=== PATIENT | female | born 1970 | race Two or more races ===

== ENCOUNTER 2017-07-09 12:47 | Inpatient (IN) | payer OTHER ==
[2017-07-09 13:05] VITALS: BMI 18.3
[2017-07-09] MEDS ORDERED: SODIUM CHLORIDE 0.9% 1000 ML INFUS.BAG IV PRN (14:37)
[2017-07-09] MEDS ORDERED: ACETAMINOPHEN 1000 MG/100 ML VIAL (NON FORMULARY) IVPB ONE (14:50)
--- NOTE | 2017-07-09 14:50 | PDOC ---
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 She is prone to aspiration PNA and was sent to the ED by her HIV doctor today with symptoms she states are typical of her prior aspiration PNA. The patient notes fever, chills, nausea, vomiting, cough with thick yellow sputum, SOB, congestion, postnasal drip, and head-to-toe body aches for the past four days. She additionally expresses concern that she has lost about 50 lbs in the past year. She denies chest pain, leg swelling, bloody sputum, or other symptoms. The patient's clinic provider called ahead and expressed concern that her pulse oxygenation was 91% on room air in clinic this morning without improvement after breathing treatment. Past History - Past Medical History Allergies/Adverse Reactions: Allergies Allergy/AdvReac Type Severity Reaction Status Date / Time sulfamethoxazole Allergy Unknown Rash Verified 07/09/17 12:56 [From Bactrim] trimethoprim [From Bactrim] Allergy Unknown Rash Verified 07/09/17 12:56 abacavir sulfate Allergy Rash Verified 07/09/17 12:56 [From Ziagen] atazanavir sulfate Allergy Rash Verified 07/09/17 12:56 [From Reyataz] azithromycin Allergy Rash Verified 07/09/17 12:56 dapsone Allergy Rash Verified 07/09/17 12:56 Home Medications: Ambulatory Orders Guaifenesin [Mucinex] 600 mg PO BID PRN #60 tablet.er 07/09/16 Acetylcysteine [Cetylev] 500 mg GT DAILY #10 tablet.eff 12/18/16 Albuterol 0.083% Nebulizer Keyonna [Ventolin 0.083% Nebulizer Soln -] 1 neb NEB Q4H PRN #1 box MDD 6 12/18/16 Albuterol Sulfate Inhaler - [Ventolin HFA Inhaler -] 1 inh IH Q4H #1 inhaler Budesonide/Formeterol Fumarate [SYMBICORT 160/4.5mcg -] 2 inh IH BID #1 inhaler 12/18/16 Diphenhydramine [Benadryl 12.5 MG/5 ML Oral Solution -] 10 ml GT BID PRN #1 bottle MDD 50 mg 12/18/16 Gabapentin Liquid [Neurontin Oral Liquid -] 250 mg PO BID #1 bottle 12/18/16 Sodium Chloride [Saline [place]] 89 ml NS Q6H #1 bottle 12/18/16 Cyclobenzaprine HCl [Flexeril -] 10 mg PO HS #30 tablet 05/21/17 Clonazepam [Klonopin] 1 mg PO TID PRN #90 tablet MDD 3 06/18/17 Emtricitabine/Tenofovir [Truvada -] 1 tab PEG DAILY #30 tablet 06/18/17 Etravirine [Intelence -] 100 mg PEG BID #60 tablet 06/18/17 Fluticasone Prop 0.05% Nasal [Flonase -] 1 - 2 spray NS DAILY #1 spray.pump Mirtazapine [Remeron -] 15 mg PO DAILY #30 tablet 06/18/17 Raltegravir [Isentress] 400 mg PEG BID #60 tab 06/18/17 Sertraline HCl [Zoloft] 50 mg PO DAILY #30 tablet 06/18/17 Zolpidem Tartrate [Ambien] 5 mg PO HS #30 tablet MDD 1 06/18/17 Anemia: No Asthma: Yes (also hx aspiration pna) Cancer: Yes (throat) Cardiac Disorders: No CVA: No COPD: No CHF: No Dementia: No Diabetes: No GI Disorders: Yes (failure to thrive, peg tube ) Disorders: No HTN: No Hypercholesterolemia: No Liver Disease: No Seizures: No Thyroid Disease: No - Surgical History Abdominal Surgery: No Appendectomy: No Cardiac Surgery: No Cholecystectomy: No GI Surgery: Yes (g tube) Lung Surgery: No Neurologic Surgery: No Orthopedic Surgery: Yes (knee arthroscopic surgery) - Immunization History Immunization Up to Date: Yes - Suicide/Smoking/Psychosocial Hx Smoking Status: Yes Smoking History: Current some day smoker Have you smoked in the past 12 months: Yes Number of Cigarettes Smoked Daily: 2 If you are a former smoker, when did you quit?: 2016 Cigars Per Day: 0 Information on smoking cessation initiated: No 'Breaking Loose' booklet given: 05/05/16 Hx Alcohol Use: No Drug/Substance Use Hx: No Substance Use Type: Marijuana Hx Substance Use Treatment: No Respiratory Specific PMHX - Complaint Specific PMHX TB (Tuberculosis): No Review of Systems - Review of Systems Able to Perform ROS?: Yes Constitutional: Yes: Diaphoresis, Malaise, Night Sweats. No: Fever HEENTM: Yes: Nose Congestion, Other (t-nasal drip). No: Throat Pain Respiratory: Yes: Wheezing, Productive cough. No: Cough, Shortness of Breath, Hemoptysis Cardiac (ROS): No: Chest Pain, Edema, Palpitations ABD/GI: Yes: Nausea, Vomiting. No: Constipated, Diarrhea, Abdominal cramping, Tarry Stools : No: Burning, Dysuria Musculoskeletal: No: Back Pain, Neck Pain Integumentary: No: Bruising, Rash Neurological: No: Headache, Numbness, Tingling, Weakness, Dizziness Endocrine: Yes: Change in Weight (lost 50 lbs in 1 year). No: Unexplained Weight Gain *Physical Exam - Vital Signs Last Vital Signs Temp Pulse Resp BP Pulse Ox 98.5 F 103 H 20 97/70 92 L 07/09/17 12:57 07/09/17 12:57 07/09/17 12:57 07/09/17 12:57 07/09/17 12:57 - Physical Exam General Appearance: Yes: Nourished, Appropriately Dressed, Thin, Other ( chronically ill-appearing thin adult female, conversive, intermittently tearful , answering appropriately). No: Apparent Distress HEENT: positive: EOMI, BOWEN, Muffled/Hoarse voice (states unchanged chronic), Hearing Grossly Normal, Other (mild bilateral scleral injection, tracheostomy in place and patient is self-suctioning white/yellow sputum). negative: Nasal Congestion Neck: positive: Trachea midline, Supple. negative: Tender, Rigid Respiratory/Chest: positive: Other (patient taking breaths mid-sentence, auscultation is difficult 2/2 frequent cough and sonorous expiratory phase d/t trach). negative: Respiratory Distress Cardiovascular: positive: Regular Rhythm, Tachycardia (mild). negative: Murmur Gastrointestinal/Abdominal: positive: Normal Bowel Sounds, Flat, Soft. negative : Tender, Organomegaly, Pulsatile Mass, Guarding Musculoskeletal: positive: Normal Inspection. negative: Decreased Range of Motion, Vertebral Tenderness Extremity: positive: Normal Capillary Refill, Normal Inspection, Normal Range of Motion. negative: Tender, Cyanosis Integumentary: positive: Normal Color, Dry, Warm. negative: Erythema, Rash, Bruising Neurologic: positive: admission nurse coordinator II-XII NML intact (grossly), Fully Oriented, Alert, Normal Mood/Affect, Normal Response, Motor Strength 12/05 ED Treatment Course - LABORATORY CBC & Chemistry Diagram: 07/09/17 15:20 07/09/17 15:15 - RADIOLOGY Radiology Studies Ordered: Category Date Time Status CHEST PA & LAT [RAD] Stat Radiology 07/09/17 14:40 Ordered Medical Decision Making - Medical Decision Making 47 YOF with HIV on HAART with last CD4 around 600 and undetectable viral load p/ w productive cough, SOB, n/v, f/c. On exam her initial vitals show soft pressures and mild tachycardia, afebrile orally though. She is tachypneic during my exam, has frequent cough, frequently self- suctioning. DDX IBNLT aspiration PNA, bronchitis, influenza, pneumothorax, malignancy, etc. Ordered is sepsis order set with flu swab, IV Tylenol, DuoNeb. 07/09/17 16:49 Labs, flu swab, and CXR unremarkable. Chest CTA is ordered to r/o PE as the patient has been tachycardic, hypoxic, h/ o CA. 07/09/17 17:58 Patient still awaiting chest CTA. 07/09/17 20:14 Patient's urine test is negative. Chest CTA is done and now awaiting official results. 07/09/17 21:04 Chest CTA shows PNA, no PE. Patient to be admitted; [facility] is microblogged. Ordered is Levaquin and Zosyn to cover CAP, normal CD4 count, h/o pseudomonas in sputum. 07/09/17 21:[address] Soria who admits to inpatient med/surg based on CURB-65. *DC/Admit/Observation/Transfer Diagnosis at time of Disposition: HIV (human immunodeficiency virus infection), Tracheostomy dependence Pneumonia Qualifiers: Pneumonia type: due to unspecified organism Laterality: unspecified laterality Lung location: unspecified part of lung Qualified Code(s): J18.9 - Pneumonia, unspecified organism - Discharge Dispostion Condition at time of disposition: Guarded Admit: Yes - Referrals - Patient Instructions - Post Discharge Activity
[2017-07-09] MEDS ORDERED: ALBUTEROL SO4 2.5/IPRATROPIUM 0.5 INH SOL 3 ML VIAL.NEB. NEB ONE (14:58)
[2017-07-09] MEDS ORDERED: ACETAMINOPHEN INJECTION 100 ML IVPB ONE (14:59)
--- NOTE | 2017-07-09 15:22 | PDOC ---
Attending Attestation - Resident Resident Name: Madelyn Grier - ED Attending Attestation I have performed the following: I have examined & evaluated the patient, The case was reviewed & discussed with the resident, I agree w/resident's findings & plan, Exceptions are as noted - HPI HPI: 07/09/17 15:19 47 F with h/o HIV (CD4 600, VL UD in March 2017), laryngeal CA s/p partial laryngectomy 2011, s/p trach and PEG, presenting to ER with fever, chills, N+V, cough. Pt states that she feels very unwell. Reports bringing up thick yellow sputum with her cough, consistent with her previous episodes of aspiration PNA. Pt denies CP but endorses SOB due to congestion and nasal drip. Pt was seen in clinic today and found to be satting 91% on RA. She received a breathing treatment with minimal improvement in her symptoms. - Physicial Exam PE: 07/09/17 15:22 "GENERAL: Awake, alert, and fully oriented, in no acute distress HEAD: No signs of trauma EYES: PERRLA, EOMI, sclera anicteric, conjunctiva clear ENT: Trach collar in place with thick yellow secretions NECK: Nontender, no stepoffs, Normal ROM, supple, no lymphadenopathy, JVD, or masses LUNGS: diffuse expiratory rhonchi, No wheezes, and no crackles, no stridor HEART: Regular rate and rhythm, normal S1 and S2, no murmurs, rubs or gallops ABDOMEN: Soft, nontender, normoactive bowel sounds. No guarding, no rebound. No masses EXTREMITIES: Normal range of motion, no edema. No clubbing or cyanosis. No cords, erythema, or tenderness NEUROLOGICAL: Cranial nerves II through XII intact. 5/5 strength and sensation in all extremities, Normal speech, normal gait SKIN: Warm, Dry, normal turgor, no rashes or lesions noted. " - Medical Decision Making 07/09/17 15:23 47 F with trach 2/2 laryngeal CA presenting with likely PNA. Pt tachycardic and slightly hypoxic to 91 in ER. Most likely infectious process. However, pt is at risk for DVT/PE given cancer history. If CXR clear, will consider CTA to r/o PE. - Labs, cultures - CXR - Abx PRN - Admit
[2017-07-09 15:35] LABS: VENOUS PH 7.45 (7.32-7.42)
[2017-07-09 15:36] LABS: BASO % 0.2 % (0-2.0); EOS % 0.4 % (0-4.5); MCH 32.4 pg (25.7-33.7); MCHC 33.4 g/dl (32.0-36.0); MEAN PLT VOLUME 10.1 fl (7.5-11.1); NEUT % 77.2 % (42.8-82.8); PLATELET COUNT 255 K/MM3 (134-434); RDW 14.2 % (11.6-15.6); VENOUS BLOOD GAS HCO3 31.7 meq/L (19-25); WHITE BLOOD COUNT 9.8 K/mm3 (4.0-10.0)
[2017-07-09 15:52] LABS: ALBUMIN 3.2 g/dl (3.4-5.0); ALK PHOS 71 U/L (45-117); ANION GAP 8 (8-16); BILIRUBIN,TOTAL 0.7 mg/dL (0.2-1.0); CALCIUM 8.9 mg/dL (8.5-10.1); CO2 29 mmol/L (21-32); CREATININE 0.5 mg/dL (0.55-1.02); GLUCOSE,RANDOM 94 mg/dL (74-106); SGPT/ALT 27 U/L (12-78); TOT PROT 7.2 g/dl (6.4-8.2)
[2017-07-09 16:53] LABS: SGOT/AST 34 U/L (15-37)
--- NOTE | 2017-07-09 18:43 | PDOC ---
*Physical Exam - Vital Signs Last Vital Signs Temp Pulse Resp BP Pulse Ox 98.1 F 85 18 164/82 100 07/09/17 16:52 07/09/17 16:52 07/09/17 16:52 07/09/17 16:52 07/09/17 16:52 - Physical Exam Comments: 07/09/17 21:04 Gen: aaox3, sitting up, eating dinner heart: +s1s2 reg Lungs: diminished bs b/l bases, trach in place abd: soft, nt/nd ext: no c/c/e ED Treatment Course - LABORATORY CBC & Chemistry Diagram: 07/09/17 15:20 07/09/17 15:15 - ADDITIONAL ORDERS Additional order review: Laboratory Results 07/09/17 07/09/17 07/09/17 15:25 15:20 15:15 VBG pH 7.45 H POC VBG pCO2 46.6 POC VBG pO2 29.7 D Mixed VBG HCO3 31.7 H Sodium 137 Potassium 4.3 Chloride 100 Carbon Dioxide 29 Anion Gap 8 BUN 15 D Creatinine 0.5 L D Creat Clearance w eGFR > 60 Random Glucose 94 D Lactic Acid 0.8 Calcium 8.9 Total Bilirubin 0.7 AST 34 D ALT 27 Alkaline Phosphatase 71 Total Protein 7.2 Albumin 3.2 L D 07/09/17 15:17 Influenza Types A,B Antigen (NEW) - Final Nasopharyngeal Swab - Final 07/09/17 15:20 RBC 3.87 MCV 97.0 H MCHC 33.4 RDW 14.2 MPV 10.1 Neutrophils % 77.2 Lymphocytes % 15.9 D Monocytes % 6.3 Eosinophils % 0.4 Basophils % 0.2 Medical Decision Making - Medical Decision Making 07/09/17 18:42 pt signed out from the prior ed physician pending CTPE for further eval of dyspnea and hypoxia cxr did not show acute infiltrate ct will eval for poss infiltrate and cause of yellow sputum production pt currenlty in CT 07/09/17 21:[address] shows multilobar pna will start abx cultures sent will be admitted to [facility] *DC/Admit/Observation/Transfer Diagnosis at time of Disposition: HIV (human immunodeficiency virus infection), Tracheostomy dependence Pneumonia Qualifiers: Pneumonia type: due to unspecified organism Laterality: unspecified laterality Lung location: unspecified part of lung Qualified Code(s): J18.9 - Pneumonia, unspecified organism - Discharge Dispostion Condition at time of disposition: Guarded - Referrals Referrals: Ludmila Louis [Primary Care Provider] - - Patient Instructions - Post Discharge Activity
[2017-07-09] MEDS ORDERED: LEVOFLOXACIN 750 MG IVPB 750 MG/150 ML BAG IVPB ONE ×2 (20:54→21:06)
[2017-07-09] MEDS ORDERED: PIPERACILLIN/TAZOB 4.5 GM/100 ML PRE-DOCKED IVPB ONE (20:54)
[2017-07-09] MEDS ORDERED: PIPERACILLIN/TAZOB 4.5 GM 4.5 GM/100 ML BAG IVPB ONE (21:05)
--- NOTE | 2017-07-09 23:12 | HP ---
<OsmelrastanatashaIgnaciol - Last Filed: 07/09/17 23:52> CHIEF COMPLAINT: Hypoxia @ PCP office PCP: Josephine Juarez HISTORY OF PRESENT ILLNESS: 47 year old F with pmh of HIV (last CD4 of 600 and undetectable viral load back in Mar 2017), laryngeal SCC s/p partial laryngectomy in 2011, radiation and chemo in 2012, and tracheostomy placement in 2015, and PEG placement presenting with hypoxia from her PCP office. Patient states she has had fever, chills, night sweats, & cough with yellow sputum over the past 4 days. Patient states last night she had an episode of emesis after a coughing spell. She went to her PCP today for HIV f/u and was found to be hypoxic. She was sent to the ED. ER course was notable for: (1) VS- tachycardic, 95% on RA (2) CBC, CMP unremarkable (3) CXR- unremarkable (4) CTA- Mild left lower and right middle lobe infiltrates Recent Travel: denies PAST MEDICAL HISTORY: as per hpi PAST SURGICAL HISTORY: G-tube, tracheostomy, partial laryngectomy Social History: Smoking: Former Alcohol: denies Drugs: Marijuana Family History: Allergies sulfamethoxazole [From Bactrim] Allergy (Unknown, Verified 07/09/17 12:56) Rash trimethoprim [From Bactrim] Allergy (Unknown, Verified 07/09/17 12:56) Rash abacavir sulfate [From Ziagen] Allergy (Verified 07/09/17 12:56) Rash atazanavir sulfate [From Reyataz] Allergy (Verified 07/09/17 12:56) Rash azithromycin Allergy (Verified 07/09/17 12:56) Rash dapsone Allergy (Verified 07/09/17 12:56) Rash HOME MEDICATIONS: Home Medications Medication Instructions Recorded Guaifenesin [Mucinex] 600 mg PO BID PRN #60 tablet.er 07/09/16 Acetylcysteine [Cetylev] 500 mg GT DAILY #10 tablet.eff 12/18/16 Albuterol 0.083% Nebulizer Keyonna 1 neb NEB Q4H PRN #1 box MDD 6 12/18/16 [Ventolin 0.083% Nebulizer Soln -] Albuterol Sulfate Inhaler - 1 inh IH Q4H #1 inhaler 12/18/16 [Ventolin HFA Inhaler -] Budesonide/Formeterol Fumarate 2 inh IH BID #1 inhaler 12/18/16 [SYMBICORT 160/4.5mcg -] Diphenhydramine [Benadryl 12.5 10 ml GT BID PRN #1 bottle MDD 50 12/18/16 MG/5 ML Oral Solution -] mg Gabapentin Liquid [Neurontin Oral 250 mg PO BID #1 bottle 12/18/16 Liquid -] Sodium Chloride [Saline Nose Gotebo] 89 ml NS Q6H #1 bottle 12/18/16 Cyclobenzaprine HCl [Flexeril -] 10 mg PO HS #30 tablet 05/21/17 Clonazepam [Klonopin] 1 mg PO TID PRN #90 tablet MDD 3 06/18/17 Emtricitabine/Tenofovir [Truvada -] 1 tab PEG DAILY #30 tablet 06/18/17 Etravirine [Intelence -] 100 mg PEG BID #60 tablet 06/18/17 Fluticasone Prop 0.05% Nasal 1 - 2 spray NS DAILY #1 spray.pump 06/18/17 [Flonase -] Mirtazapine [Remeron -] 15 mg PO DAILY #30 tablet 06/18/17 Raltegravir [Isentress] 400 mg PEG BID #60 tab 06/18/17 Sertraline HCl [Zoloft] 50 mg PO DAILY #30 tablet 06/18/17 Zolpidem Tartrate [Ambien] 5 mg PO HS #30 tablet MDD 1 06/18/17 REVIEW OF SYSTEMS CONSTITUTIONAL: Absent: fever, chills, diaphoresis, generalized weakness, malaise, loss of appetite, weight change HEENT: Absent: rhinorrhea, nasal congestion, throat pain, throat swelling, difficulty swallowing, mouth swelling, ear pain, eye pain, visual changes CARDIOVASCULAR: Absent: chest pain, syncope, palpitations, irregular heart rate, lightheadedness , peripheral edema RESPIRATORY: Absent: cough, shortness of breath, dyspnea with exertion, orthopnea, wheezing, stridor, hemoptysis GASTROINTESTINAL: Absent: abdominal pain, abdominal distension, nausea, vomiting, diarrhea, constipation, melena, hematochezia GENITOURINARY: Absent: dysuria, frequency, urgency, hesitancy, hematuria, flank pain, genital pain MUSCULOSKELETAL: Absent: myalgia, arthralgia, joint swelling, back pain, neck pain SKIN: Absent: rash, itching, pallor HEMATOLOGIC/IMMUNOLOGIC: Absent: easy bleeding, easy bruising, lymphadenopathy, frequent infections ENDOCRINE: Absent: unexplained weight gain, unexplained weight loss, heat intolerance, cold intolerance NEUROLOGIC: Absent: headache, focal weakness or paresthesias, dizziness, unsteady gait, seizure, mental status changes, bladder or bowel incontinence PSYCHIATRIC: Absent: anxiety, depression, suicidal or homicidal ideation, hallucinations. PHYSICAL EXAMINATION Vital Signs - 24 hr 07/09/17 07/09/17 07/09/17 12:57 16:52 21:58 Temperature 98.5 F 98.1 F 98.3 F Pulse Rate 103 H Pulse Rate [ 85 100 H Apical] Respiratory 20 18 20 Rate Blood Pressure 97/70 Blood Pressure 164/82 132/74 [Right Arm] O2 Sat by Pulse 92 L 100 95 Oximetry (%) GENERAL: Awake, alert, and fully oriented, in no acute distress. +chronically thin appearing, HEAD: Normal with no signs of trauma. EYES: Pupils equal, round and reactive to light, extraocular movements intact, sclera anicteric, conjunctiva clear. No lid lag. EARS, NOSE, THROAT: Oropharynx clear without exudates. Moist mucous membranes. NECK: Normal range of motion, supple without lymphadenopathy, JVD, or masses. + Tracheostomy in place, patient self suctioning, Muffled voice, LUNGS: Breath sounds equal, clear to auscultation bilaterally. No wheezes, and no crackles. No accessory muscle use. HEART: Mild tachycardia, normal S1 and S2 without murmur, rub or gallop. ABDOMEN: Soft, nontender, not distended, normoactive bowel sounds, no guarding, no rebound, no masses. No hepatomegaly or splenomegaly. +PEG tube placemenet MUSCULOSKELETAL: Normal range of motion at all joints. No bony deformities or tenderness. No CVA tenderness. UPPER EXTREMITIES: 2+ pulses, warm, well-perfused. No cyanosis. No clubbing. No peripheral edema. LOWER EXTREMITIES: 2+ pulses, warm, well-perfused. No calf tenderness. No peripheral edema. NEUROLOGICAL: Cranial nerves II-XII intact. Normal speech. Normal gait. PSYCHIATRIC: Cooperative. Good eye contact. Appropriate mood and affect. SKIN: Warm, dry, normal turgor, no rashes or lesions noted, normal capillary refill. Laboratory Results - last 24 hr 07/09/17 07/09/17 07/09/17 15:15 15:20 15:20 WBC 9.8 D RBC 3.87 Hgb 12.5 Hct 37.5 MCV 97.0 H MCH 32.4 MCHC 33.4 RDW 14.2 Plt Count 255 MPV 10.1 Neutrophils % 77.2 Lymphocytes % 15.9 D Monocytes % 6.3 Eosinophils % 0.4 Basophils % 0.2 VBG pH 7.45 H POC VBG pCO2 46.6 POC VBG pO2 29.7 D Mixed VBG HCO3 31.7 H Sodium 137 Potassium 4.3 Chloride 100 Carbon Dioxide 29 Anion Gap 8 BUN 15 D Creatinine 0.5 L D Creat Clearance w eGFR > 60 Random Glucose 94 D Lactic Acid Calcium 8.9 Total Bilirubin 0.7 AST 34 D ALT 27 Alkaline Phosphatase 71 Total Protein 7.2 Albumin 3.2 L D Serum , Qual 07/09/17 07/09/17 15:25 17:59 WBC RBC Hgb Hct MCV MCH MCHC RDW Plt Count MPV Neutrophils % Lymphocytes % Monocytes % Eosinophils % Basophils % VBG pH POC VBG pCO2 POC VBG pO2 Mixed VBG HCO3 Sodium Potassium Chloride Carbon Dioxide Anion Gap BUN Creatinine Creat Clearance w eGFR Random Glucose Lactic Acid 0.8 Calcium Total Bilirubin AST ALT Alkaline Phosphatase Total Protein Albumin Serum , Qual Negative ASSESSMENT/PLAN: 47 year old F with pmh of HIV (last CD4 of 600 and undetectable viral load back in Mar 2017), laryngeal SCC s/p partial laryngectomy in 2011, radiation and chemo in 2012, and tracheostomy placement in 2015, and PEG placement admitted for aspiration PNA. #Aspiration PNA, subpleural -CTA reveals- Mild left lower and right middle lobe infiltrates -Start Levaquin 750 mg IVPB daily -Albuterol 1 IH q4h prn -Frequent Suctioning, patient suctions on her own and prefers not to have a nurse do it -2L O2 PRN to maintain O2 saturation -Symbicort 2 puff IH BID -F/u blood cultures #HIV -CD4 in March,. Viral Load undetectable at that time. -Continue HAART therapy #FEN/GI -No fluids at this time -WNL -Soft Diet, PEG tube. Patent will manage. #PPX -Heparin 5000 U sq q8h -No GI PPx indicated. Visit type - Emergency Visit Emergency Visit: Yes ED Registration Date: 07/09/17 Care time: The patient presented to the Emergency Department on the above date and was hospitalized for further evaluation of their emergent condition. - New Patient This patient is new to me today: Yes Date on this admission: 07/09/17 - Critical Care Critical Care patient: No <Pedro Soria - Last Filed: 07/10/17 00:29> CHIEF COMPLAINT: FEVER , CHills , SOB I saw and evaluated the patient. I reviewed the resident's note and discussed the case with the resident. I agree with the resident's findings and plan as documented. HISTORY OF PRESENT ILLNESS: 47 year old female with history of laryngeal SCC, partial laryngectomy and recent tracheostomy ( 2 years ago) presents c/o SOB and fevers . Had evidence of hypoxia on the initial exam in ED Reports 2 day history of nausea vomiting and aspiration Recent Travel: NO PAST MEDICAL HISTORY: HIV Laryngeal CA PAST SURGICAL HISTORY: partial laryngectomy tracheostomy Allergies sulfamethoxazole [From Bactrim] Allergy (Unknown, Verified 07/09/17 12:56) Rash trimethoprim [From Bactrim] Allergy (Unknown, Verified 07/09/17 12:56) Rash abacavir sulfate [From Ziagen] Allergy (Verified 07/09/17 12:56) Rash atazanavir sulfate [From Reyataz] Allergy (Verified 07/09/17 12:56) Rash azithromycin Allergy (Verified 07/09/17 12:56) Rash dapsone Allergy (Verified 07/09/17 12:56) Rash HOME MEDICATIONS: Home Medications Medication Instructions Recorded Guaifenesin [Mucinex] 600 mg PO BID PRN #60 tablet.er 07/09/16 Acetylcysteine [Cetylev] 500 mg GT DAILY #10 tablet.eff 12/18/16 Albuterol 0.083% Nebulizer Keyonna 1 neb NEB Q4H PRN #1 box MDD 6 12/18/16 [Ventolin 0.083% Nebulizer Soln -] Albuterol Sulfate Inhaler - 1 inh IH Q4H #1 inhaler 12/18/16 [Ventolin HFA Inhaler -] Budesonide/Formeterol Fumarate 2 inh IH BID #1 inhaler 12/18/16 [SYMBICORT 160/4.5mcg -] Diphenhydramine [Benadryl 12.5 10 ml GT BID PRN #1 bottle MDD 50 12/18/16 MG/5 ML Oral Solution -] mg Gabapentin Liquid [Neurontin Oral 250 mg PO BID #1 bottle 12/18/16 Liquid -] Sodium Chloride [Saline Nose Gotebo] 89 ml NS Q6H #1 bottle 12/18/16 Cyclobenzaprine HCl [Flexeril -] 10 mg PO HS #30 tablet 05/21/17 Clonazepam [Klonopin] 1 mg PO TID PRN #90 tablet MDD 3 06/18/17 Emtricitabine/Tenofovir [Truvada -] 1 tab PEG DAILY #30 tablet 06/18/17 Etravirine [Intelence -] 100 mg PEG BID #60 tablet 06/18/17 Fluticasone Prop 0.05% Nasal 1 - 2 spray NS DAILY #1 spray.pump 06/18/17 [Flonase -] Mirtazapine [Remeron -] 15 mg PO DAILY #30 tablet 06/18/17 Raltegravir [Isentress] 400 mg PEG BID #60 tab 06/18/17 Sertraline HCl [Zoloft] 50 mg PO DAILY #30 tablet 06/18/17 Zolpidem Tartrate [Ambien] 5 mg PO HS #30 tablet MDD 1 06/18/17 REVIEW OF SYSTEMS Weight loss SOB Peg tube PHYSICAL EXAMINATION Vital Signs - 24 hr 07/09/17 07/09/17 07/09/17 12:57 13:15 16:52 Temperature 98.5 F 98.1 F Pulse Rate 103 H Pulse Rate [ 85 Apical] Respiratory 20 18 Rate Blood Pressure 97/70 Blood Pressure 164/82 [Right Arm] O2 Sat by Pulse 92 L 100 100 Oximetry (%) 07/09/17 21:58 Temperature 98.3 F Pulse Rate Pulse Rate [ 100 H Apical] Respiratory 20 Rate Blood Pressure Blood Pressure 132/74 [Right Arm] O2 Sat by Pulse 95 Oximetry (%) Cachexia Tracheostomy PEG tube scattered basilar ronchi Laboratory Results - last 24 hr 07/09/17 07/09/17 07/09/17 15:15 15:20 15:20 WBC 9.8 D RBC 3.87 Hgb 12.5 Hct 37.5 MCV 97.0 H MCH 32.4 MCHC 33.4 RDW 14.2 Plt Count 255 MPV 10.1 Neutrophils % 77.2 Lymphocytes % 15.9 D Monocytes % 6.3 Eosinophils % 0.4 Basophils % 0.2 VBG pH 7.45 H POC VBG pCO2 46.6 POC VBG pO2 29.7 D Mixed VBG HCO3 31.7 H Sodium 137 Potassium 4.3 Chloride 100 Carbon Dioxide 29 Anion Gap 8 BUN 15 D Creatinine 0.5 L D Creat Clearance w eGFR > 60 Random Glucose 94 D Lactic Acid Calcium 8.9 Total Bilirubin 0.7 AST 34 D ALT 27 Alkaline Phosphatase 71 Total Protein 7.2 Albumin 3.2 L D Serum , Qual 07/09/17 07/09/17 15:25 17:59 WBC RBC Hgb Hct MCV MCH MCHC RDW Plt Count MPV Neutrophils % Lymphocytes % Monocytes % Eosinophils % Basophils % VBG pH POC VBG pCO2 POC VBG pO2 Mixed VBG HCO3 Sodium Potassium Chloride Carbon Dioxide Anion Gap BUN Creatinine Creat Clearance w eGFR Random Glucose Lactic Acid 0.8 Calcium Total Bilirubin AST ALT Alkaline Phosphatase Total Protein Albumin Serum , Qual Negative CT reviewed ASSESSMENT/PLAN: agree with residents asessment and plan add chest PT speech & swallow evaluation Nebs OK to use own suctioning device C/W home meds IV antibiotics for coverage of aspiration pneumonia
[2017-07-09] MEDS ORDERED: ALBUTEROL SO4 0.083% IH SOL 2.5 MG/3 ML VIAL.NEB. NEB PRN (23:30)
[2017-07-09] MEDS ORDERED: ALBUTEROL SO4 18 GM HFA INHALER IH PRN (23:30)
[2017-07-10] MEDS: HEPARIN NA (PORCINE) 5,000 UNITS/ML 1ML VIAL SQ SCH ×3 (05:43→21:57)
[2017-07-10 07:41] LABS: BASO % 0.2 % (0-2.0); EOS % 1.3 % (0-4.5); MCH 32.3 pg (25.7-33.7); MCHC 33.3 g/dl (32.0-36.0); MEAN CELL VOLUME 96.9 fl (80-96); MEAN PLT VOLUME 10.1 fl (7.5-11.1); NEUT % 71.5 % (42.8-82.8); PLATELET COUNT 277 K/MM3 (134-434); WHITE BLOOD COUNT 7.9 K/mm3 (4.0-10.0)
[2017-07-10 07:58] LABS: ANION GAP 9 (8-16); CALCIUM 9.5 mg/dL (8.5-10.1); CO2 32 mmol/L (21-32); CREATININE 0.6 mg/dL (0.55-1.02); GLUCOSE,RANDOM 96 mg/dL (74-106)
[2017-07-10] MEDS ORDERED: LEVOFLOXACIN 750 MG IVPB 750 MG/150 ML BAG IVPB ONE (08:30)
[2017-07-10] MEDS ORDERED: AZITHROMYCIN IVPB 500 MG in DEXTROSE 5%-WATER - 250 ML IVPB SCH (10:00)
[2017-07-10] MEDS ORDERED: LEVOFLOXACIN 750 MG IVPB 750 MG/150 ML BAG IVPB SCH (10:00)
[2017-07-10] MEDS ORDERED: METRONIDAZOLE 500 MG PREMIXED 500 MG/100 ML MG IVPB SCH (10:00)
[2017-07-10] MEDS ORDERED: CEFTRIAXONE 1 G/50 ML PREMIX 50 ML IVPB SCH (10:00)
--- NOTE | 2017-07-10 10:47 | EKG ---
Test Reason : Blood Pressure : / mmHG Vent. Rate : 090 BPM Atrial Rate : 090 BPM P-R Int : 126 ms QRS Dur : 084 ms QT Int : 370 ms P-R-T Axes : 067 -40 054 degrees QTc Int : 452 ms NORMAL SINUS RHYTHM LEFT AXIS DEVIATION ABNORMAL ECG Confirmed by MD EDGAR, DULCE ([id number]) on 07/10/2017 10:46:36 AM Referred By: Confirmed By:DULCE HERNÁNDEZ MD
[2017-07-10] MEDS: ETRAVIRINE 100 MG TABLET PO SCH ×2 (10:52→21:58)
[2017-07-10] MEDS: RALTEGRAVIR POTASSIUM 400 MG TAB PO SCH ×2 (10:52→21:59)
[2017-07-10] MEDS: EMTRICITABINE 200MG/TENOFOVIR 300MG PO SCH (10:53)
--- NOTE | 2017-07-10 10:53 | PN ---
Progress Note (short form) - Note Progress Note: ID consult dictated Pneumonia Possible sepsis secondary to pneumonia HIV/ AIDS Hx head and neck ca Oral candidiasis Multiple antibiotic allergies Await cultures Empiric levaquin/ cefepime Fluconazole via GT ART
[2017-07-10] MEDS: BUDESONIDE/FORMETEROL FUMARATE 160/4.5 mcg INHALER IH SCH ×2 (10:54→21:57)
[2017-07-10] MEDS ORDERED: CEFEPIME HCL 1 GM VIAL (RESTRICTED TO ID) IVPB SCH (11:15)
--- NOTE | 2017-07-10 12:47 | CONSULT ---
Admitting History and Physical - Primary Care Physician PCP: Brina Ron - Admission History of Present Illness: Per EMR: 47 year old F with pmh of HIV (last CD4 of 600 and undetectable viral load back in Mar 2017), laryngeal SCC s/p partial laryngectomy in 2011, radiation and chemo in 2012, and tracheostomy placement in 2015, and PEG placement presenting with hypoxia from her PCP office. Patient states she has had fever, chills, night sweats, & cough with yellow sputum over the past 4 days. Patient states last night she had an episode of emesis after a coughing spell. She went to her PCP today for HIV f/u and was found to be hypoxic. She was sent to the ED. ER course was notable for: (1) VS- tachycardic, 95% on RA (2) CBC, CMP unremarkable (3) CXR- unremarkable (4) CTA- Mild left lower and right middle lobe infiltrates Pt knopwn to me from previous eval/mbs, Last mbs 01/28/16, with trace aspiration on puree and liquid. Trial of puree/ nectar recommended, using trach for pulmonary toilet to increase ability to tolerate trace aspiration. Pt has been eating a reg diet and thin liquid at home. She has a [employer] flex speaking valve. - Past Medical History Pulmonary: Yes: Asthma, Cancer (laryngeal), Other (vocal cord mass) ...LMP: 05/14/12 ...: No Infectious Disease: Yes: HIV ENT: Yes: Other (trach in place) - Smoking History Smoking history: Current some day smoker Have you smoked in the past 12 months: Yes Aproximately how many cigarettes per day: 2 If you are a former smoker, when did you quit?: 2016 - Alcohol/Substance Use Hx Alcohol Use: No History of Substance Use: reports: None - Social History ADL: Independent History of Recent Travel: No History - Admission Reason For Visit: HUMAN IMMUNODEFICIENCY VIRUS INFECTION/ - Diagnostics X-ray: Report Reviewed CT Scan: Report Reviewed - General Mental Status: Alert and Oriented, Awake and Alert, Able to Follow Commands Attention: Intact Ability to Follow Directions: Excellent Head/Neck Control: WFL - Hearing Hearing: Functional Hearing: Normal Hearing Aide: No With Patient: No Speech Evaluation - Communication Primary Language: TURKMEN Communication: Yes: Within Normal Limits Oral Expression Ability: Yes: Mild Impairment - Speech Production Apraxia: No Able to Make Needs Known: Yes: Mildly Impaired Intelligibility: Yes: Mildly Impaired - Speech Characteristics Voice Loudness: Mildly Soft/Quiet Voice Pitch: Yes: Normal Voice Phonatory-based Quality: Yes: Dysphonia Speech Pattern: Impaired Speech Clarity: < 75% Nasal Resonance: Normal Articulation: Yes: Precise - Language/Auditory Comprehension Follows: Yes: 2 Stage Simple Commands Observation: Comprehends Conversational Speech: Yes - Language/Verbal Expression Able to Respond to Simple Queries: Yes: WNL Able to Communicate Wants and Needs: Yes: WNL Functional Communication Status: Yes: WNL - Memory/Perception skilled nursing Memory: Yes: WNL Short Term Memory: Yes: WNL - Swallow Evaluation/Bedside Assessment Current Nutritional Intake: Regular, Thin Liquids Tracheostomy Present: Yes Dentition: Yes: Adequate Facial Symmetry at Rest: Symmetrical Facial Symmetry on Retraction: Symmetrical Facial Movement: Controlled Sensation: Normal Against Resistance Opening: Normal Against Resistance Closing: Normal Pucker Lips: Normal Smile: Normal Lingual Movement: Normal, Symmetric Lingual Speed of Movement: Normal Lingual Movement Strgth Against Opposition: Normal Lingual Movement Characteristics: Normal Velopharyngeal Movement: Normal Laryngeal Elevation: Impaired Laryngeal Movement: Able to Palpate, Reduced Excursion, Labored,delay initiation , Reduced Velocity Labial Seal: WFL Oral Prep Time: WFL A-P Transit: WFL Pocketing: None Timing of Swallow: Delayed (multiple swallows. suspect stasis.) Coughing/Throat Clear: No Change in Voice: No Recommendations - Speech Evaluation, Impression/Plan Impression: Suspect aspiration. - Dysphagia Impressions/Plan Swallowing Skills: Impaired Dysphagia Impressions: Ongoing Evaluation *Silent aspiration: cannot be R/O at bedside Recommendations: Modified Barium Swallow
[2017-07-10] MEDS ORDERED: PATIENT'S OWN MEDICATION (NON-FORMULARY) (Clonazepam [Klonopin] 1 MG) PO PRN (14:49)
[2017-07-10] MEDS ORDERED: clonazePAM 0.5 MG TABLET PO PRN (14:52)
[2017-07-10] MEDS: CEFEPIME 1 GM in DEXTROSE 5%-WATER - 100 ML IVPB SCH ×2 (15:26→19:28)
[2017-07-10] MEDS: FLUCONAZOLE 40 MG/ML SUSPENSION 35 ML BOTTLE GT SCH (15:31)
--- NOTE | 2017-07-10 15:33 | PN ---
Progress Note, [employer] - Note Progress Note: Called by RN, to see pt following MBS, crying about the results of her MBS, that she feels "too skinny", that her mother calls her "Bones." Counseled on weight, called RD for possible increase in caloric density of TF. Request order for OPD swallowing tx at [facility] where she receives PT.
--- NOTE | 2017-07-10 16:48 | CONS ---
DATE OF CONSULTATION: DATE OF DICTATION: 07/10/2017 HISTORY OF PRESENT ILLNESS: The patient is a 47-year-old female with a history of acquired immunodeficiency syndrome, history of head/neck cancer status post partial laryngectomy, tracheostomy, and feeding gastrostomy, now evaluated for pneumonia. Patient states that she began to feel unwell approximately 2 days prior to admission. She developed worsening generalized weakness, body ache, subjective fever, chills, nausea, cough productive of yellowish sputum. She had presented to the clinic where she was noted to be dyspneic. She was tachycardic, tachypneic. O2 saturations were in the low 90s. She was referred to the emergency room where an influenza swab was performed, and it was negative. CAT scan of the chest shows infiltrates in the left lower lobe and the right middle lobe. Patient reports her dyspnea has improved. She has no complaints of chest pain. She does have yellowish tracheal secretions. In the past, she has had pseudomonas isolated from the sputum. She denies any chest pain or hemoptysis. PAST MEDICAL HISTORY: Positive for acquired immune deficiency syndrome. Her most recent viral markers showed a viral load of less than 20 and a T-cell count of 581, these values are from March. Past medical history also includes head and neck cancer, status post partial laryngectomy in 2011. She is status post chemotherapy and radiation. PAST SURGICAL HISTORY: Status post tracheostomy 2015, feeding gastrostomy. ALLERGIES: SULFA, ABACAVIR, REYATAZ, ZITHROMAX, . MEDICATION: Include Truvada, Intelence, Isentress. SOCIAL HISTORY: Positive for tobacco use. SYSTEMS REVIEW: General: Positive for 50-pound weight loss over the past 1 year. Cardiac: Negative chest pain or palpitations. Respiratory: As per HPI. Gastrointestinal: Positive feeding gastrostomy. Genitourinary: Negative for urinary tract infection. LABORATORY DATA: White blood cell count 7.9, hematocrit 39.4, platelet count 277, BUN 44, creatinine 0.6. CAT scan shows patchy left lower lobe and right middle lobe infiltrates. PHYSICAL EXAMINATION: General: She is cachectic. She is awake and alert. She is in no acute respiratory distress. Vital signs: Temperature 98, blood pressure 100/66, pulse 94 regular, respirations 28 per minute. HEENT: Sclerae anicteric. Tracheostomy present. No secretions noted. Cardiovascular: Heart sounds S1, S2. Respiratory: Lungs crepitations of the bases bilaterally. Abdomen: Soft. No tenderness elicited. No mass, rebound, or rigidity. Feeding gastrostomy tube is in place. Extremities: Negative for edema. IMPRESSION: 1. Multilobar pneumonia. 2. Possible sepsis secondary to pneumonia. 3. Human immunodeficiency virus/acquired immune deficiency syndrome, stable. 4. History of head and neck carcinoma. 5. Oral candidiasis. Await culture results. Empiric antibiotic coverage with Levaquin and cefepime in this patient with multiple antibiotic allergies, via feeding gastrostomy tube. Continue antiretroviral therapy. Thank you for the kind referral. GARRETT JULIAN M.D. DEE/[id number]
--- NOTE | 2017-07-10 16:58 | PN ---
Teaching Attending Note Name of Resident: Sai Fallon ATTENDING PHYSICIAN STATEMENT Time of evaluation: 11:15 AM I saw and evaluated the patient. I reviewed the resident's note and discussed the case with the resident. I agree with the resident's findings and plan as documented. SUBJECTIVE: Patient seen and examined. Breathing improved, denies increase in secretions,no current fevers, chills, or URI like illness. Last vomitus noted yesterday. Feels better. OBJECTIVE: Vital Signs Period Temp Pulse Resp BP Sys/Lisa Pulse Ox Last 24 Hr 97.7 F-98.3 F 94-107 18-20 96-132/66-76 92-96 Intake & Output 07/07/17 07/08/17 07/09/17 07/10/17 23:59 23:59 23:59 23:59 Intake Total 100 320 Balance 100 320 Weight 100 lb 100 lb General: sitting in bed in no acute distress CVS:S1S2 regular Chest: right side rales, good air entry bilaterally Abdomen: soft, NT, ND neck: tracheostomy in place Extremities: no edema Active Medications Generic Name Dose Route Start Last Admin Trade Name Freq PRN Reason Stop Dose Admin Albuterol Sulfate 1 amp 07/09/17 23:30 07/10/17 11:54 Ventolin 0.083% Nebulizer Soln - NEB 1 amp Q4H PRN Administration SHORT OF BREATH/WHEEZING Albuterol Sulfate 1 puff 07/09/17 23:30 Ventolin Hfa Inhaler - IH Q4H PRN SHORT OF BREATH/WHEEZING Budesonide/Formoterol Fumarate 2 puff 07/10/17 10:00 07/10/17 10:54 Symbicort 160/4.5mcg - IH 2 puff BID RAZ Administration Clonazepam 1 mg 07/10/17 14:52 07/10/17 15:28 Klonopin - PO 1 mg Q8H PRN Administration ANXIETY Emtricitabine/Tenofovir 1 tab 07/10/17 10:00 07/10/17 10:53 Truvada PO Not Given DAILY RAZ Etravirine 100 mg 07/10/17 10:00 07/10/17 10:52 Intelence - PO Not Given BID RAZ Fluconazole 100 mg 07/10/17 11:15 07/10/17 15:31 Diflucan 40mg/Ml Suspension - GT 17 gm DAILY RAZ Administration Heparin Sodium (Porcine) 5,000 unit 07/10/17 06:00 07/10/17 16:15 Heparin - SQ Not Given TID RAZ Levofloxacin 500 mg in 100 mls @ 100 mls/hr 07/11/17 10:00 Levaquin 500 Mg Premixed Ivpb - IVPB DAILY RAZ Cefepime HCl 1 gm/ Dextrose 100 mls @ 200 mls/hr 07/10/17 11:30 07/10/17 15: 26 IVPB Not Given Q8H-IV RAZ Raltegravir 400 mg 07/10/17 10:00 07/10/17 10:52 Isentress - PO Not Given BID RAZ Sodium Chloride 1,000 ml 07/09/17 14:37 07/09/17 15:40 Normal Saline - IV 1,000 ml Q20M PRN Administration MAP<65mm Hg OR SBP <90 Laboratory Results - last 24 hr 07/09/17 07/10/17 07/10/17 17:59 07:20 07:20 WBC 7.9 RBC 4.07 Hgb 13.1 Hct 39.4 MCV 96.9 H MCH 32.3 MCHC 33.3 RDW 14.0 Plt Count 277 MPV 10.1 Neutrophils % 71.5 Lymphocytes % 18.5 Monocytes % 8.5 Eosinophils % 1.3 D Basophils % 0.2 Sodium 142 Potassium 3.7 Chloride 101 Carbon Dioxide 32 Anion Gap 9 BUN 24 H D Creatinine 0.6 Random Glucose 96 Calcium 9.5 Serum , Qual Negative Microbiology 07/10/17 08:30 Sputum - Expectorated Gram Stain - Final 07/09/17 14:37 Blood - Peripheral Venous Blood Culture - Preliminary NO GROWTH OBTAINED AFTER 24 HOURS, INCUBATION TO CONTINUE FOR 4 DAYS. 07/09/17 14:37 Blood - Peripheral Venous Blood Culture - Preliminary NO GROWTH OBTAINED AFTER 24 HOURS, INCUBATION TO CONTINUE FOR 4 DAYS. 07/09/17 15:17 Nasopharyngeal Swab Influenza Types A,B Antigen (NEW) - Final 07/09/17 15:17 Nasopharyngeal Swab - Final ASSESSMENT AND PLAN: 47 year old F with pmh of HIV (last CD4 of 600 and undetectable viral load back in Mar 2017), laryngeal SCC s/p partial laryngectomy in 2011, radiation and chemo in 2012, and tracheostomy placement in 2015, and PEG placement with recent URI like illness/vomitting admitted with hypoxia, found with Aspiration PNA. -LLL/RML aspiration Pneumonia -Recent URI like illness -Oral candidiasis -HIV on HAART -Laryngeal SCC s/p partial laryngectomy s/p tracheostomy -PEG placement -Anxiety Plan: ID input appreciated. Cefepime/levaquin and fluconazole Sputum cultures from tracheal suctioned sample. Blood culturse neg so far, follow up. Speech/swallow input noted, suspect vomitting in the setting URI illness likely contributory to her aspiration. NPO with tube feeds till pneumonia resolves, then pleasure feeds with outpatient follow to resume regular PO. Continue HAART. DVTPPx Dispo planning in 24 hours on oral antibiotics if continues to improve. Plan discussed with patient in detail, all questions answered.
--- NOTE | 2017-07-10 17:38 | PN ---
Physical Exam: SUBJECTIVE: Patient seen and examined at bedside. She states that she is upset that her modified barium swallow came back with recommendations to keep NPO. She states that her body and her mind are now and she does not feel like herself anymore. OBJECTIVE: Vital Signs Period Temp Pulse Resp BP Sys/Lisa Pulse Ox Last 24 Hr 97.7 F-98.3 F 94-107 18-20 96-132/66-76 92-96 GENERAL: The patient is awake, alert, and fully oriented, in no acute distress, patient is cachectic. HEAD: Normal with no signs of trauma. EYES: PERRL, extraocular movements intact, sclera anicteric, conjunctiva clear. No ptosis. ENT: Ears normal, nares patent, oropharynx clear without exudates, moist mucous membranes. NECK: Trachea midline, full range of motion, supple. LUNGS: Breath sounds equal, clear to auscultation bilaterally, no wheezes, mild crackles at auscultated bilaterally, no accessory muscle use. HEART: Regular rate and rhythm, S1, S2 without murmur, rub or gallop. ABDOMEN: Soft, nontender, nondistended, normoactive bowel sounds, no guarding, no rebound, no hepatosplenomegaly, no masses. Patient appears thin, almost cachectic. EXTREMITIES: 2+ pulses, warm, well-perfused, no edema. NEUROLOGICAL: Cranial nerves II through XII grossly intact. Normal speech, gait not observed. PSYCH: Depressed mood, depressed affect. SKIN: Warm, dry, normal turgor, no rashes or lesions noted Laboratory Results - last 24 hr 07/09/17 07/10/17 07/10/17 17:59 07:20 07:20 WBC 7.9 RBC 4.07 Hgb 13.1 Hct 39.4 MCV 96.9 H MCH 32.3 MCHC 33.3 RDW 14.0 Plt Count 277 MPV 10.1 Neutrophils % 71.5 Lymphocytes % 18.5 Monocytes % 8.5 Eosinophils % 1.3 D Basophils % 0.2 Sodium 142 Potassium 3.7 Chloride 101 Carbon Dioxide 32 Anion Gap 9 BUN 24 H D Creatinine 0.6 Random Glucose 96 Calcium 9.5 Serum , Qual Negative Active Medications Generic Name Dose Route Start Last Admin Trade Name Freq PRN Reason Stop Dose Admin Albuterol Sulfate 1 amp 07/09/17 23:30 07/10/17 11:54 Ventolin 0.083% Nebulizer Soln - NEB 1 amp Q4H PRN Administration SHORT OF BREATH/WHEEZING Albuterol Sulfate 1 puff 07/09/17 23:30 Ventolin Hfa Inhaler - IH Q4H PRN SHORT OF BREATH/WHEEZING Budesonide/Formoterol Fumarate 2 puff 07/10/17 10:00 07/10/17 10:54 Symbicort 160/4.5mcg - IH 2 puff BID RAZ Administration Clonazepam 1 mg 07/10/17 14:52 07/10/17 15:28 Klonopin - PO 1 mg Q8H PRN Administration ANXIETY Emtricitabine/Tenofovir 1 tab 07/10/17 10:00 07/10/17 10:53 Truvada PO Not Given DAILY RAZ Etravirine 100 mg 07/10/17 10:00 07/10/17 10:52 Intelence - PO Not Given BID RAZ Fluconazole 100 mg 07/10/17 11:15 07/10/17 15:31 Diflucan 40mg/Ml Suspension - GT 17 gm DAILY RAZ Administration Heparin Sodium (Porcine) 5,000 unit 07/10/17 06:00 07/10/17 16:15 Heparin - SQ Not Given TID RAZ Levofloxacin 500 mg in 100 mls @ 100 mls/hr 07/11/17 10:00 Levaquin 500 Mg Premixed Ivpb - IVPB DAILY RAZ Cefepime HCl 1 gm/ Dextrose 100 mls @ 200 mls/hr 07/10/17 11:30 07/10/17 15: 26 IVPB Not Given Q8H-IV RAZ Raltegravir 400 mg 07/10/17 10:00 07/10/17 10:52 Isentress - PO Not Given BID RAZ Sodium Chloride 1,000 ml 07/09/17 14:37 07/09/17 15:40 Normal Saline - IV 1,000 ml Q20M PRN Administration MAP<65mm Hg OR SBP <90 ASSESSMENT/PLAN: 47 year old F with pmh of HIV (last CD4 of 600 and undetectable viral load back in Mar 2017), laryngeal SCC s/p partial laryngectomy in 2011, radiation and chemo in 2012, and tracheostomy placement in 2015, and PEG placement admitted for aspiration PNA. #Aspiration PNA: -patient is trach'd -CTA Mild left lower and right middle lobe infiltrates -continue Levaquin 750 mg -continue cefepime Q8 -Albuterol 1 IH q4h prn -2L O2 PRN to maintain O2 saturation -Symbicort 2 puff IH BID -F/u blood cultures -modified barium swallow performed, patient needs to be kept NPO -tube feeds as per dietary reccs #Anxiety/Depression -psych consult -given dose of clonopin earlier #HIV -CD4 in March,. Viral Load undetectable at that time. -Continue HAART therapy #FEN -No fluids at this time -WNL -NPO - tube feeds as per dietary reccs #PPX -Heparin 5000 U sq q8h -No GI PPx indicated. #Disposition -Continue monitoring on med surg -Dispo planning tomorrow Visit type - Emergency Visit Emergency Visit: No - New Patient This patient is new to me today: No - Critical Care Critical Care patient: No
[2017-07-10] MEDS ORDERED: ZOLPIDEM TARTRATE 5 MG TABLET PO PRN (18:49)
--- NOTE | 2017-07-10 19:04 | CON.PSY ---
Psychiatry Consult Chief Complaint: Asked to see this patient for assist with management of her psych meds History of Present Problem: Med records seen Nursing input received Patient was able to give hx. Patient has a psychiatrist, a Dr. Kenna Yepez at [facility] Istop checked and she is on klonopi 1 mgs tid Patient is agitated, c/o of all personnel at the hospital, procedures + Depressed feels more depressed now that she cannot eat- and has lost all that weight + Agitation + irritability No psychotic symptoms Depression/Anxiety Restart meds tonight ambien 5 mgs remeron 15 mgs offer klonopin 1 mgs rtc- hold for sedation start zoloft 100 mgs in am Restart hiv meds if not contraindicated - Case discussed with RN and floor MD - Current Medications Current Medications: Active Medications Albuterol Sulfate (Ventolin 0.083% Nebulizer Soln -) 1 amp NEB Q4H PRN PRN Reason: SHORT OF BREATH/WHEEZING Last Admin: 07/10/17 11:54 Dose: 1 amp Albuterol Sulfate (Ventolin Hfa Inhaler -) 1 puff IH Q4H PRN PRN Reason: SHORT OF BREATH/WHEEZING Budesonide/Formoterol Fumarate (Symbicort 160/4.5mcg -) 2 puff IH BID [facility] Last Admin: 07/10/17 10:54 Dose: 2 puff Clonazepam (Klonopin -) 1 mg PO Q8H PRN PRN Reason: ANXIETY Last Admin: 07/10/17 15:28 Dose: 1 mg Emtricitabine/Tenofovir (Truvada) 1 tab PO DAILY [facility] Last Admin: 07/10/17 10:53 Dose: Not Given Etravirine (Intelence -) 100 mg PO BID [facility] Last Admin: 07/10/17 10:52 Dose: Not Given Fluconazole (Diflucan 40mg/Ml Suspension -) 100 mg GT DAILY [facility] Last Admin: 07/10/17 15:31 Dose: 17 gm Heparin Sodium (Porcine) (Heparin -) 5,000 unit SQ TID [facility] Last Admin: 07/10/17 16:15 Dose: Not Given Levofloxacin (Levaquin 500 Mg Premixed Ivpb -) 500 mg in 100 mls @ 100 mls/hr IVPB DAILY [facility] Cefepime HCl 1 gm/ Dextrose 100 mls @ 200 mls/hr IVPB Q8H-IV RAZ Last Admin: 07/10/17 15:26 Dose: Not Given Mirtazapine (Remeron -) 15 mg PO HS RAZ Raltegravir (Isentress -) 400 mg PO BID RAZ Last Admin: 07/10/17 10:52 Dose: Not Given Sertraline HCl (Zoloft -) 100 mg PO DAILY [facility] Sodium Chloride (Normal Saline -) 1,000 ml IV Q20M PRN PRN Reason: MAP<65mm Hg OR SBP <90 Last Admin: 07/09/17 15:40 Dose: 1,000 ml Zolpidem Tartrate (Ambien -) 5 mg PO HS PRN PRN Reason: INSOMNIA - Allergies Allergies: Allergies Allergy/AdvReac Type Severity Reaction Status Date / Time sulfamethoxazole Allergy Unknown Rash Verified 07/09/17 12:56 [From Bactrim] trimethoprim [From Bactrim] Allergy Unknown Rash Verified 07/09/17 12:56 abacavir sulfate Allergy Rash Verified 07/09/17 12:56 [From Ziagen] atazanavir sulfate Allergy Rash Verified 07/09/17 12:56 [From Reyataz] azithromycin Allergy Rash Verified 07/09/17 12:56 dapsone Allergy Rash Verified 07/09/17 12:56
[2017-07-10] MEDS ORDERED: MIRTAZAPINE 15 MG TABLET (FP) PO SCH (22:00)
[2017-07-11] MEDS: CEFEPIME 1 GM in DEXTROSE 5%-WATER - 100 ML IVPB SCH ×2 (01:06→10:17)
[2017-07-11] MEDS: HEPARIN NA (PORCINE) 5,000 UNITS/ML 1ML VIAL SQ SCH (06:12)
[2017-07-11 09:22] VITALS: BP 123/69; TEMP 97.8
[2017-07-11] MEDS ORDERED: SERTRALINE HCL 50 MG TABLET (FP) PO SCH (10:00)
[2017-07-11] MEDS ORDERED: LEVOFLOXACIN 500 MG IVPB 500 MG/100 ML BAG IVPB SCH (10:00)
[2017-07-11] MEDS: RALTEGRAVIR POTASSIUM 400 MG TAB PO SCH (10:17)
[2017-07-11] MEDS: EMTRICITABINE 200MG/TENOFOVIR 300MG PO SCH (10:17)
[2017-07-11] MEDS: FLUCONAZOLE 40 MG/ML SUSPENSION 35 ML BOTTLE GT SCH (10:17)
[2017-07-11] MEDS: ETRAVIRINE 100 MG TABLET PO SCH (10:17)
[2017-07-11] MEDS: BUDESONIDE/FORMETEROL FUMARATE 160/4.5 mcg INHALER IH SCH (10:18)
[2017-07-11 11:14] VITALS: PULSE 103
--- NOTE | 2017-07-11 11:39 | DS ---
Physical Exam: SUBJECTIVE: Patient seen and examined, breathing at baseline. anxiety improved after resumption of home meds. Eager to go home. OBJECTIVE: Vital Signs Period Temp Pulse Resp BP Sys/Lisa Pulse Ox Last 24 Hr 97.8 F-98.3 F 94-103 20-20 90-123/61-74 93-94 PHYSICAL EXAM GENERAL: The patient is awake, alert, and fully oriented, in no acute distress. HEAD: Normal with no signs of trauma. EYES: PERRL, extraocular movements intact, sclera anicteric, conjunctiva clear. NECK: trachestomy with self-suction of clear mucoid discharge LUNGS: no rales or wheezing noted, no acessory muscle use HEART: Regular rate and rhythm, ABDOMEN: Soft, nontender, nondistended, normoactive bowel sounds, no guarding, no rebound,PEG in place EXTREMITIES: 2+ pulses, warm, well-perfused, no edema. NEUROLOGICAL: Cranial nerves II through XII grossly intact. Normal speech, gait normal PSYCH: Normal mood, normal affect. SKIN: Warm, dry, normal turgor, no rashes or lesions noted. LABS Laboratory Tests 07/09/17 07/09/17 07/09/17 15:15 15:20 15:20 WBC 9.8 D RBC 3.87 Hgb 12.5 Hct 37.5 MCV 97.0 H MCH 32.4 MCHC 33.4 RDW 14.2 Plt Count 255 MPV 10.1 Neutrophils % 77.2 Lymphocytes % 15.9 D Monocytes % 6.3 Eosinophils % 0.4 Basophils % 0.2 VBG pH 7.45 H POC VBG pCO2 46.6 POC VBG pO2 29.7 D Mixed VBG HCO3 31.7 H Sodium 137 Potassium 4.3 Chloride 100 Carbon Dioxide 29 Anion Gap 8 BUN 15 D Creatinine 0.5 L D Creat Clearance w eGFR > 60 Random Glucose 94 D Lactic Acid Calcium 8.9 Total Bilirubin 0.7 AST 34 D ALT 27 Alkaline Phosphatase 71 Total Protein 7.2 Albumin 3.2 L D Serum , Qual 07/09/17 07/09/17 07/10/17 15:25 17:59 07:20 WBC 7.9 RBC 4.07 Hgb 13.1 Hct 39.4 MCV 96.9 H MCH 32.3 MCHC 33.3 RDW 14.0 Plt Count 277 MPV 10.1 Neutrophils % 71.5 Lymphocytes % 18.5 Monocytes % 8.5 Eosinophils % 1.3 D Basophils % 0.2 VBG pH POC VBG pCO2 POC VBG pO2 Mixed VBG HCO3 Sodium Potassium Chloride Carbon Dioxide Anion Gap BUN Creatinine Creat Clearance w eGFR Random Glucose Lactic Acid 0.8 Calcium Total Bilirubin AST ALT Alkaline Phosphatase Total Protein Albumin Serum , Qual Negative 07/10/17 07:20 WBC RBC Hgb Hct MCV MCH MCHC RDW Plt Count MPV Neutrophils % Lymphocytes % Monocytes % Eosinophils % Basophils % VBG pH POC VBG pCO2 POC VBG pO2 Mixed VBG HCO3 Sodium 142 Potassium 3.7 Chloride 101 Carbon Dioxide 32 Anion Gap 9 BUN 24 H D Creatinine 0.6 Creat Clearance w eGFR Random Glucose 96 Lactic Acid Calcium 9.5 Total Bilirubin AST ALT Alkaline Phosphatase Total Protein Albumin Serum , Qual Microbiology 07/10/17 08:30 Sputum - Expectorated Gram Stain - Final 07/09/17 14:37 Blood - Peripheral Venous Blood Culture - Preliminary NO GROWTH OBTAINED AFTER 24 HOURS, INCUBATION TO CONTINUE FOR 4 DAYS. 07/09/17 14:37 Blood - Peripheral Venous Blood Culture - Preliminary NO GROWTH OBTAINED AFTER 24 HOURS, INCUBATION TO CONTINUE FOR 4 DAYS. 07/09/17 15:17 Nasopharyngeal Swab Influenza Types A,B Antigen (NEW) - Final 07/09/17 15:17 Nasopharyngeal Swab - Final CTA chest: No PE, centrilobular emphysema, RML/LLL mild infiltrate, right hilar lymphadenopathy HOSPITAL COURSE: Date of Admission:07/09/17 Date of Discharge: 07/11/17 47 year old F with pmh of HIV (last CD4 of 600 and undetectable viral load back in Mar 2017), laryngeal SCC s/p partial laryngectomy in 2011, radiation and chemo in 2012, and tracheostomy placement in 2015, and PEG placement was sent in for hypoxia. Patient reported fevers, chill, night sweats, cough with sputum over last 4 days, starting as a URI like illness, associated with nausae and vomiting, reports vomitting day prior to admission and felt had aspiration from the same. Her CT chest on admission was negative for pulmonary embolism but showed RML/LLL infiltrate. She was placed on levaquin. Her findings were likely suggestive of aspiration pneumonia vs pneumonitis. Infectious disease was consulted, she was place on 24 hours cefepime/levaquin and fluconazole was added for oral candidiasis. She never had any fevers or leucocytosis and had stable oxygenation on room air during her stay. After discussion with Dr. Messer, she is planned for 1 week of levaquin/ flagyl for aspiration pneumonia (cover atypicals as well) and 10 days of fluconazole. She was evaluated by speech/swallow evaluation, had MBS that showed silent aspiration. She was recommended only pleasure feeds with full aspiration precautions and that also to start after her pneumonia has resolved and was recommended high calorie tube feeds. She is advised outpatient speech/swallow follow up at [facility]. She reported anxiety during her stay and was seen by psychiatry and advised to continue on her home medications zoloft and remeron. Minutes to complete discharge: 40 Discharge Summary Reason For Visit: HUMAN IMMUNODEFICIENCY VIRUS INFECTION/ Current Active Problems Difficulty breathing (Acute) Pneumonia (Acute) AIDS (Chronic) Asthma (Chronic) Failure to thrive in adult (Chronic) HIV (human immunodeficiency virus infection) (Chronic) Head and neck cancer (Chronic) Tracheostomy dependence (Chronic) Condition: Good - Instructions Diet, Activity, Other Instructions: You were admitted with pneumonia, suspected from aspiration. You were seen by infectious disease and recommended following antibiotics. -Levaquin 500 mg via G tube daily for 1 week starting today -Flagyl 500 mg via G tube every 8 hours for 1 week starting today -Fluconazole via G tube for 10 days. Take all antibiotics via G tube as tolerated. Please confirm with your pharmacy if the medications can be crushed. You were evaluated by speech and swallow and given following recommendations: Contiue gastrostomy feedings for most nutrition hydration and medication. Mouth Care. You may be able to tolerate small amount of dypshagia puree for pleasure using technique of multiple effortfull swallows and repeat volitional coughs every 2- 3 bites to clear the airway. No regula foold. No liquids thick or thin. This should only be done once lung status is better. Outpatient referral for speech/swallow therapy at [facility] (script has been provided). Tube feedings recommendation by barmaid as follows: Tube Feed Twocal 1 can 5x/day- bolus ( at home - gravity feedings) providing 2375 kcal/99.5 gm Prot/580 ml free water ( as pt feels the need for 5 cans r/t inability to gain weight on lower calorie tube feeding regimen) - if you do not want above regimen and insist on home tube feeding- rec using 1 bottle 4 x/day boluses- Boost Very High Calorie - recommend 150 ml water flushes before and after each can of TF (1500 ml free water) Total free water: 2080 ml/day - aspiration precautions Call 911 or come to ED if new fevers, chills, trouble breathing, increased tracheal secretions or new concerns. Referrals: Ludmila Louis [Primary Care Provider] - Disposition: VNS/HOME HEALTH CARE - Home Medications Comprehensive Discharge Medication List: Ambulatory Orders Guaifenesin [Mucinex] 600 mg PO BID PRN #60 tablet.er 07/09/16 Acetylcysteine [Cetylev] 500 mg GT DAILY #10 tablet.eff 12/18/16 Albuterol 0.083% Nebulizer Keyonna [Ventolin 0.083% Nebulizer Soln -] 1 neb NEB Q4H PRN #1 box MDD 6 12/18/16 Albuterol Sulfate Inhaler - [Ventolin HFA Inhaler -] 1 inh IH Q4H #1 inhaler Budesonide/Formeterol Fumarate [SYMBICORT 160/4.5mcg -] 2 inh IH BID #1 inhaler 12/18/16 Diphenhydramine [Benadryl 12.5 MG/5 ML Oral Solution -] 10 ml GT BID PRN #1 bottle MDD 50 mg 12/18/16 Gabapentin Liquid [Neurontin Oral Liquid -] 250 mg PO BID #1 bottle 12/18/16 Sodium Chloride [Saline Nose Eakly] 89 ml NS Q6H #1 bottle 12/18/16 Cyclobenzaprine HCl [Flexeril -] 10 mg PO HS #30 tablet 05/21/17 Clonazepam [Klonopin] 1 mg PO TID PRN #90 tablet MDD 3 06/18/17 Emtricitabine/Tenofovir [Truvada -] 1 tab PEG DAILY #30 tablet 06/18/17 Etravirine [Intelence -] 100 mg PEG BID #60 tablet 06/18/17 Fluticasone Prop 0.05% Nasal [Flonase -] 1 - 2 spray NS DAILY #1 spray.pump Mirtazapine [Remeron -] 15 mg PO DAILY #30 tablet 06/18/17 Raltegravir [Isentress] 400 mg PEG BID #60 tab 06/18/17 Sertraline HCl [Zoloft] 50 mg PO DAILY #30 tablet 06/18/17 Zolpidem Tartrate [Ambien] 5 mg PO HS #30 tablet MDD 1 06/18/17 Fluconazole [Diflucan *Suspension* -] 100 mg GT DAILY 10 Days #30 ml 07/11/17 Levofloxacin [Levaquin] 500 mg PO DAILY 7 Days #7 tablet 07/11/17 Metronidazole [Flagyl -] 500 mg PO Q8H 7 Days #21 tablet 07/11/17 Miscellaneous Drug Not In Syst [Outpatient Lab Test] 1 each ASDIR #1 misc 04/19 This patient is new to me today: No Emergency Visit: No Critical Care patient: No - Discharge Referral Referred to [facility] No
== END 2017-07-11 12:00 | disposition home health service (06) | DRG 137 ==
LOC: JER 12:47 → JERBED 21:30 → J8W 07-10 02:40 → J7W 07-10 07:28
PROVIDERS: ADMIT Internal Medicine; ATTEND Hospitalist
PROC: 3E0F7GC Introduction of Other Therapeutic Substance into Respiratory Tract, Via Natural or Artificial Opening (ICD-10-PCS; principal; 2017-07-10)
DX: J69.0 Pneumonitis due to inhalation of food and vomit (principal); B20 Human immunodeficiency virus [HIV] disease; B37.0 Candidal stomatitis; F17.200 Nicotine dependence, unspecified, uncomplicated; R09.02 Hypoxemia; F41.8 Other specified anxiety disorders; R00.0 Tachycardia, unspecified; E43 Unspecified severe protein-calorie malnutrition; R62.7 Adult failure to thrive; Z68.1 Body mass index [BMI] 19.9 or less, adult; Z85.89 Personal history of malignant neoplasm of other organs and systems
CPT/HCPCS: 36415; 71020-TC; 71275-TC; 74230-TC; 80048; 80053; 82803; 83605; 84703; 85025; 87040; 87070; 87205; 87804; 92611-GN; 93005; 93010; 94640; 99285-25; J1644

== ENCOUNTER 2017-12-29 11:13 | Day surgery (SDC) | payer OTHER ==
[2017-12-29 12:32] VITALS: BMI 18.6
[2017-12-29 12:34] VITALS: TEMP 97.6
[2017-12-29 14:25] VITALS: BP 90/65; PULSE 75
== END 2017-12-29 13:25 | disposition home or self-care (01) ==
LOC: JASU-ENDO 11:13
PROVIDERS: ATTEND Internal Medicine Gastroenterology
PROC: 0DH68UZ Insertion of Feeding Device into Stomach, Via Natural or Artificial Opening Endoscopic (ICD-10-PCS; principal; 2017-12-29 11:45)
DX: Z43.1 Encounter for attention to gastrostomy (principal); Z85.21 Personal history of malignant neoplasm of larynx; R13.10 Dysphagia, unspecified; J45.909 Unspecified asthma, uncomplicated; Z21 Asymptomatic human immunodeficiency virus [HIV] infection status; Z87.891 Personal history of nicotine dependence

== ENCOUNTER 2018-03-28 11:52 | Inpatient (IN) | payer OTHER ==
[2018-03-28] MEDS ORDERED: SODIUM CHLORIDE 1,000 ML IV STA ×4 (12:10→15:59)
--- NOTE | 2018-03-28 12:10 | PDOC ---
History of Present Illness - General Chief Complaint: Vomiting/Diarrhea Stated Complaint: Vomiting/Diarrhea/CHEST PAIN Time Seen by Provider: 03/28/18 12:09 - History of Present Illness Initial Comments: 03/28/18 12:56 The patient is a 47 year old female with a history of laryngeal cancer s/p trach and peg, AIDs, HIV, Hep B, failure to thrive who presents for evaluation of difficulty breathing, vomiting, and chest pain. The patient reports a 4 day history of worsening right sided chest pain, nausea, vomiting and difficulty breathing prompting her presentation to the ED for further evaluation. She notes that the chest pain initially was sharp, but now is a tightness worse with deep inspiration. She notes purulent cough as well with increased mucus from her trach. She has also noted fevers to 103 at home that has been minimally responsive to tylenol. The patient otherwise denies chills, abdominal pain, or changes with urination or bowel movements. Past History - Past Medical History Allergies/Adverse Reactions: Allergies Allergy/AdvReac Type Severity Reaction Status Date / Time sulfamethoxazole Allergy Unknown Rash Verified 03/28/18 12:08 [From Bactrim] trimethoprim [From Bactrim] Allergy Unknown Rash Verified 03/28/18 12:08 abacavir sulfate Allergy Rash Verified 03/28/18 12:08 [From Ziagen] atazanavir sulfate Allergy Rash Verified 03/28/18 12:08 [From Reyataz] azithromycin Allergy Rash Verified 03/28/18 12:08 dapsone Allergy Rash Verified 03/28/18 12:08 Home Medications: Ambulatory Orders Albuterol 0.083% Nebulizer Keyonna [Ventolin 0.083% Nebulizer Soln -] 1 neb NEB Q4H PRN #1 box MDD 6 11/18/17 Albuterol Sulfate Inhaler - [Ventolin HFA Inhaler -] 1 inh IH Q4H #1 inhaler Budesonide/Formeterol Fumarate [SYMBICORT 160/4.5mcg -] 2 inh IH BID #1 inhaler 11/18/17 Emtricitabine/Tenofovir [Truvada -] 1 tab PEG DAILY #30 tablet 11/18/17 Etravirine [Intelence -] 100 mg PEG BID #60 tablet 11/18/17 Fluticasone Prop 0.05% Nasal [Flonase -] 1 - 2 spray NS DAILY #1 spray.pump Gabapentin Liquid [Neurontin Oral Liquid -] 250 mg PO BID #1 bottle 11/18/17 Raltegravir [Isentress] 400 mg PEG BID #60 tab 11/18/17 Bacitracin - [Bacitracin Topical Ointment -] 1 applic TP BID #1 applic 03/04/18 Clonazepam [Klonopin] 1 mg PO TID PRN #90 tablet MDD 3 03/04/18 Ibuprofen 1 tab PO BID #30 tablet MDD 2 03/04/18 Mirtazapine [Remeron -] 15 mg PO DAILY #30 tablet 03/04/18 Ondansetron HCl [Zofran] 4 mg PO DAILY PRN #5 tablet MDD 1 03/04/18 Sertraline HCl [Zoloft] 50 mg PO DAILY #30 tablet 03/04/18 Sertraline HCl [Zoloft] 100 mg PO AM #30 tablet 03/04/18 Zolpidem Tartrate [Ambien] 5 mg PO HS #30 tablet MDD 1 03/04/18 Anemia: No Asthma: Yes Cancer: Yes (laryngeal) Cardiac Disorders: No CVA: No COPD: No CHF: No Dementia: No Diabetes: No GI Disorders: Yes (failure to thrive, peg tube ) Disorders: No HTN: No Hypercholesterolemia: No Liver Disease: No Seizures: No Thyroid Disease: No - Surgical History Abdominal Surgery: No Appendectomy: No Cardiac Surgery: No Cholecystectomy: No GI Surgery: Yes (g tube) Lung Surgery: No Neurologic Surgery: No Orthopedic Surgery: Yes (knee arthroscopic surgery) - Immunization History Immunization Up to Date: Yes - Suicide/Smoking/Psychosocial Hx Smoking Status: Yes Smoking History: Current every day smoker Have you smoked in the past 12 months: No Number of Cigarettes Smoked Daily: 2 If you are a former smoker, when did you quit?: 2016 Cigars Per Day: 0 'Breaking Loose' booklet given: 05/05/16 Hx Alcohol Use: No Drug/Substance Use Hx: No Substance Use Type: Marijuana Hx Substance Use Treatment: No Review of Systems - Review of Systems Comments:: 03/28/18 13:00 Constitutional: Fevers. No chills, fatigue, malaise HEENT: No Rhinorrhea, nasal congestion, visual changes Cardiovascular: Chest pain. No syncope, palpitations, lightheadedness Respiratory: Cough, SOB. No Hemoptysis, Gastrointestinal: Nausea, vomiting, diarrhea. No Abdominal pain, Constipation, Melena Genitourinary: No Dysuria, Frequency, Urgency, Hesitancy, Hematuria, Flank pain Musculoskeletal: No Myalgia, arthralgia Skin: No rashes, itching, bruising, pallor Neurologic: No Headache, Dizziness, Numbness, Weakness, or Tingling Psychiatric: No Hallucinations. No SI or HI *Physical Exam - Physical Exam Comments: 03/28/18 13:00 General Appearance: Nourished. In Moderate Apparent Distress HEENT: No Pharyngeal Erythema, Tonsillar Exudate, Tonsillar Erythema Neck: Trach in place with purulent sputum noted. No Cervical Lymphadenopathy Respiratory/Chest: Lungs Clear, Normal Breath Sounds. Right lower lobe crackles noted on exam. No Rhonchi, Wheezing Cardiovascular: Regular Rhythm, Tachycardic Rate. No Murmur, Gallops, Rubs Gastrointestinal/Abdominal: Normal Bowel Sounds, Soft. PEG tube in place. No Guarding, Rebound, Tenderness Musculoskeletal: No CVA Tenderness Extremity: Normal Capillary Refill Integumentary: Normal Color, Dry, Warm Neurologic: Fully Oriented, Alert, Normal Mood/Affect, Normal Response, Procedures - Central Line Central Line Lumen: triple Central Line Position: femoral (R) Anesthesia: 1% Lidocaine Amount of anesthesia (ccs): 5 Complications: none Post Central Line Insertion: sutured, good blood return ED Treatment Course - LABORATORY CBC & Chemistry Diagram: 03/28/18 12:35 03/28/18 12:35 Medical Decision Making - Medical Decision Making 03/28/18 13:02 The patient is a 47 year old female with a history of laryngeal cancer s/p trach and peg, AIDS, HIV, Hep B, failure to thrive who presents for evaluation of difficulty breathing, vomiting, and chest pain. Differential includes but is not limited to: Sepsis, Pneumonia, Viral, ACS, Infectious, Metabolic Derangement. Given the patient's history and physical exam and the patient's active vomiting, it is possible the patient's symptoms are due to an aspiration pneumonia. We will obtain a cbc, cmp, lactate, vbg, troponin, blood cultures, ua, urine cultures, chest plain film, ekg to evaluate further. We will treat in the meantime with iv fluids, iv tylenol, zofran, vanc, zosyn and continue to monitor and reassess while here in the ED. The patient will likely require admission for further management. 03/28/18 14:25 CBC demonstrates an elevated wbc to 13.9 CMP, lactate, troponin, ua are unremarkable. Chest plain film demonstrates bilateral lower lobe infiltrates right worse than the left consistent with pneumonia. We discussed the case with the admitting team who accepted the patient for admission. Will obtain consultation with Dr. Messer with ID. 03/28/18 17:28 Patient's blood pressure has continued to be in the 70s systolic with MAPs of 58 despite 3l of IV fluids. We believe the patient requires central venous access at this time. We discussed the benefits and risks of undergoing central line placement with the patient who voiced understanding and consented to the procedure. Given the patient's trach and anatomy, we opted to place a right femoral central line which was successfully placed on first attempt. Case discussed with the ICU team who accepted the patient. *DC/Admit/Observation/Transfer Diagnosis at time of Disposition: AIDS Pneumonia Qualifiers: Pneumonia type: due to unspecified organism Laterality: bilateral Lung location : unspecified part of lung Qualified Code(s): J18.9 - Pneumonia, unspecified organism Chest pain Qualifiers: Chest pain type: unspecified Qualified Code(s): R07.9 - Chest pain, unspecified - Discharge Dispostion Condition at time of disposition: Stable Decision to Admit order: Yes - Referrals - Patient Instructions - Post Discharge Activity
[2018-03-28] MEDS ORDERED: ONDANSETRON 4 MG/2 ML VIAL IVPUSH ONE (12:17)
[2018-03-28] MEDS ORDERED: ACETAMINOPHEN 1000 MG/100 ML VIAL (NON FORMULARY) IVPB ONE (12:17)
[2018-03-28] MEDS ORDERED: ONDANSETRON 4 MG/2 ML VIAL ONE (12:21)
[2018-03-28] MEDS ORDERED: ACETAMINOPHEN INJECTION 100 ML IVPB ONE (12:21)
--- NOTE | 2018-03-28 12:22 | PDOC ---
Attending Attestation - Resident Resident Name: Jose Alejandro Najera - HPI HPI: 03/28/18 13:21 Pt presents to the ED complaining of fever, cough and vomiting. Patient has a history of larnygeal CA and has tracheostomy and peg tube but is not vent dependent. She is not currently on chemotherapy. - Physicial Exam PE: 03/28/18 14:22 Agree with resident exam. Patient is alert and in no acute distress. CV: Regular rate and rhythm. Pulm: + diffuse rhonchi, worse in the RLL. Abdomen: soft, non tender, non distended, PEG in place with no erythema or tenderness around site. - Critical Care Time Total Critical Care Time: 30 Critical Care Statement: The care of this patient involved high complexity decision making to prevent further life threatening deterioration of the patient 's condition and/or to evaluate & treat vital organ system(s) failure or risk of failure. - Medical Decision Making 03/28/18 14:28 Pt presents to the ED complaining of fever, nausea and vomiting and shortness of breath. + rhonchi in the RLL. Symptoms are consistent with PNA, less likely other sources of sepsis, fluid overload, malignancy, aspiration. Will check labs and start broad spectrum antibiotics, give pain and nausea control and admit to medicine.
[2018-03-28 12:51] LABS: EOS % 0.2 % (0-4.5); HEMOGLOBIN 12.2 GM/dL (10.7-15.3); LYMPH % 3.5 % (8-40); MCH 33.5 pg (25.7-33.7); MCHC 33.9 g/dl (32.0-36.0); MEAN CELL VOLUME 98.8 fl (80-96); MEAN PLT VOLUME 9.7 fl (7.5-11.1); MONO % 1.2 % (3.8-10.2); NEUT % 95.1 % (42.8-82.8); PLATELET COUNT 226 K/MM3 (134-434); RBC 3.65 M/mm3 (3.60-5.2); RDW 14.7 % (11.6-15.6); WHITE BLOOD COUNT 13.9 K/mm3 (4.0-10.0)
[2018-03-28 12:52] LABS: VENOUS PC02 45.7 mmHg (38-52); VENOUS PH 7.42 (7.32-7.42); VENOUS PO2 67.4 mmHg (28-48)
[2018-03-28 12:58] LABS: URINE APPEARANCE CLEAR; URINE BILIRUBIN NEGATIVE (<2.0 mg/dL); URINE COLOR YELLOW; URINE GLUCOSE (UA) NEGATIVE (NEGATIVE); URINE KETONE NEGATIVE (NEGATIVE); URINE LEUK ESTERASE NEGATIVE (NEGATIVE); URINE NITRITE NEGATIVE (NEGATIVE); URINE UROBILINOGEN NEGATIVE mg/dL (0.2-1.0)
[2018-03-28 13:00] LABS: URINE PROTEIN 2+ (NEGATIVE)
[2018-03-28 13:02] LABS: EPI CELLS RARE /HPF (FEW); URINE MUCUS RARE
[2018-03-28 13:05] LABS: INR 1.22 (0.83-1.09); PROTHROMBIN TIME (PATIENT) 13.8 SEC (9.7-13.0)
[2018-03-28] MEDS ORDERED: PIPERACILLIN/TAZOB 3.375 GM 3.375 GM in DEXTROSE 5%-WATER - 50 ML IVPB ONE (13:06)
[2018-03-28] MEDS ORDERED: KETOROLAC TROMETHAMINE 30 MG/1 ML VIAL IVPUSH ONE (13:06)
[2018-03-28] MEDS ORDERED: VANCOMYCIN 1,000 MG in DEXTROSE 5%-WATER - 250 ML IVPB ONE (13:06)
[2018-03-28 13:08] LABS: ACTIVATED PTT 29.3 SECONDS (25.2-36.5)
[2018-03-28 13:21] LABS: ALBUMIN 2.9 g/dl (3.4-5.0); ANION GAP 6 MMOL/L (8-16); BILIRUBIN,TOTAL 0.3 mg/dL (0.2-1.0); BLOOD UREA NITROGEN 29 mg/dL (7-18); CALCIUM 8.3 mg/dL (8.5-10.1); CHLORIDE 102 mmol/L (98-107); CO2 31 mmol/L (21-32); CREATININE 0.6 mg/dL (0.55-1.02); GLUCOSE,RANDOM 191 mg/dL (74-106); POTASSIUM 3.5 mmol/L (3.5-5.1); SGOT/AST 25 U/L (15-37); SGPT/ALT 24 U/L (12-78); SODIUM 139 mmol/L (136-145); TOT PROT 6.4 g/dl (6.4-8.2)
[2018-03-28 13:23] LABS: ALK PHOS 88 U/L (45-117)
[2018-03-28] MEDS ORDERED: VANCOMYCIN 1 GRAM (PRE-DOCKED) 1,000 MG/250 ML BAG IVPB ONE ×2 (13:55)
[2018-03-28] MEDS ORDERED: KETOROLAC TROMETHAMINE 30 MG/1 ML VIAL ONE (13:55)
[2018-03-28 14:16] LABS: PLATELET ESTIMATE ADEQUATE
[2018-03-28] MEDS ORDERED: PIPERACILLIN/TAZOB 3.375 GM 3.375 GM/50 ML BAG IVPB ONE (15:35)
--- NOTE | 2018-03-28 16:31 | HP ---
CHIEF COMPLAINT: PCP: HISTORY OF PRESENT ILLNESS: This is a 47 year old female with PMHx of HIV/AIDS, laryngeal carcinoma s/p trach (2015) and PEG (2013), HBV, failure to thrive, who presented to the ED with nausea, vomiting, diarrhea, cough, fever since . The patient reports that she noted having a 103 fever at home. She also reports right sided intermittent chest pain that began about 4 days ago and has worsened. She reports it is sharp in nature, and that it is worse with deep inspiration. She also states that over the past 4 days she has noticed increase in yellowish sputum via her trach site. She denies any chills, headache, dizziness, urinary symptoms, lower extremity swelling, difficulty with peg feeding. ER course was notable for: (1) Temp 101.4, pulse 121, BP 98/71, resp 28, O2 84% on RA (2) WBC 13.9 (3) Chest X-ray with progressive bibasilar infiltrates with right fluid and right base atelectasis. The mediastinum is not widened Recent Travel: denies PAST MEDICAL HISTORY: as above PAST SURGICAL HISTORY: as above Social History: Smoking: "quit many years ago" Alcohol: denies Drugs: Marijuana oil when "I can afford it" Family History: Allergies sulfamethoxazole [From Bactrim] Allergy (Unknown, Verified 03/28/18 12:08) Rash trimethoprim [From Bactrim] Allergy (Unknown, Verified 03/28/18 12:08) Rash abacavir sulfate [From Ziagen] Allergy (Verified 03/28/18 12:08) Rash atazanavir sulfate [From Reyataz] Allergy (Verified 03/28/18 12:08) Rash azithromycin Allergy (Verified 03/28/18 12:08) Rash dapsone Allergy (Verified 03/28/18 12:08) Rash HOME MEDICATIONS: Home Medications Medication Instructions Recorded Diphenhydramine [Benadryl 12.5 10 ml GT BID PRN #1 bottle MDD 50 12/18/16 MG/5 ML Oral Solution -] mg Acetylcysteine [Cetylev] 500 mg GT DAILY #10 tablet.eff 11/18/17 Albuterol 0.083% Nebulizer Keyonna 1 neb NEB Q4H PRN #1 box MDD 6 11/18/17 [Ventolin 0.083% Nebulizer Soln -] Albuterol Sulfate Inhaler - 1 inh IH Q4H #1 inhaler 11/18/17 [Ventolin HFA Inhaler -] Budesonide/Formeterol Fumarate 2 inh IH BID #1 inhaler 11/18/17 [SYMBICORT 160/4.5mcg -] Emtricitabine/Tenofovir [Truvada -] 1 tab PEG DAILY #30 tablet 11/18/17 Etravirine [Intelence -] 100 mg PEG BID #60 tablet 11/18/17 Fluticasone Prop 0.05% Nasal 1 - 2 spray NS DAILY #1 spray.pump 11/18/17 [Flonase -] Gabapentin Liquid [Neurontin Oral 250 mg PO BID #1 bottle 11/18/17 Liquid -] Raltegravir [Isentress] 400 mg PEG BID #60 tab 11/18/17 Bacitracin - [Bacitracin Topical 1 applic TP BID #1 applic 03/04/18 Ointment -] Clonazepam [Klonopin] 1 mg PO TID PRN #90 tablet MDD 3 03/04/18 Ibuprofen 1 tab PO BID #30 tablet MDD 2 03/04/18 Mirtazapine [Remeron -] 15 mg PO DAILY #30 tablet 03/04/18 Ondansetron HCl [Zofran] 4 mg PO DAILY PRN #5 tablet MDD 1 03/04/18 Sertraline HCl [Zoloft] 50 mg PO DAILY #30 tablet 03/04/18 Sertraline HCl [Zoloft] 100 mg PO AM #30 tablet 03/04/18 Zolpidem Tartrate [Ambien] 5 mg PO HS #30 tablet MDD 1 03/04/18 REVIEW OF SYSTEMS CONSTITUTIONAL: Fever of 103 at home. Absent: chills, diaphoresis, generalized weakness, malaise, loss of appetite, weight change HEENT: Absent: rhinorrhea, nasal congestion, throat pain, throat swelling, difficulty swallowing, mouth swelling, ear pain, eye pain, visual changes CARDIOVASCULAR: Right sided chest pain, intermittent, sharp, worsening with inspiration that began 4 days ago. Absent: syncope, palpitations, irregular heart rate, lightheadedness, peripheral edema RESPIRATORY: Productive cough with yellowish sputum through her trach. Absent: orthopnea, wheezing, stridor, hemoptysis GASTROINTESTINAL: Nausea, vomiting, diarrhea since , 03/25. Absent: abdominal pain, abdominal distension, constipation, melena, hematochezia GENITOURINARY: Absent: dysuria, frequency, urgency, hesitancy, hematuria, flank pain, genital pain MUSCULOSKELETAL: Absent: myalgia, arthralgia, joint swelling, back pain, neck pain SKIN: Absent: rash, itching, pallor HEMATOLOGIC/IMMUNOLOGIC: Absent: easy bleeding, easy bruising, lymphadenopathy, frequent infections ENDOCRINE: Absent: unexplained weight gain, unexplained weight loss, heat intolerance, cold intolerance NEUROLOGIC: Absent: headache, focal weakness or paresthesias, dizziness, unsteady gait, seizure, mental status changes, bladder or bowel incontinence PSYCHIATRIC: Absent: anxiety, depression, suicidal or homicidal ideation, hallucinations. PHYSICAL EXAMINATION Vital Signs - 24 hr 03/28/18 03/28/18 03/28/18 12:09 13:00 14:55 Temperature 101.4 F H 98.8 F Pulse Rate 121 H Pulse Rate [ 106 H 95 H Apical] Respiratory 28 H 18 18 Rate Blood Pressure 98/71 Blood Pressure 95/66 70/53 [Left Arm] O2 Sat by Pulse 84 L 100 96 Oximetry (%) 03/28/18 03/28/18 15:15 16:09 Temperature Pulse Rate Pulse Rate [ 92 H 90 Apical] Respiratory 18 18 Rate Blood Pressure Blood Pressure 77/45 80/55 [Left Arm] O2 Sat by Pulse 100 Oximetry (%) GENERAL: Awake, alert, and fully oriented, in no acute distress. Thin HEAD: Normal with no signs of trauma. EYES: Pupils equal, round and reactive to light, extraocular movements intact. No lid lag. NECK: +Trach, on trach collar. LUNGS: B/l crackles at the bases. No wheezes, and no crackles. HEART: Regular rate and rhythm, normal S1 and S2 ABDOMEN: + PEG. Soft, nontender, not distended, normoactive bowel sounds MUSCULOSKELETAL: Normal range of motion at all joints. UPPER EXTREMITIES: 2+ pulses, warm, well-perfused. No cyanosis. No clubbing. No peripheral edema. LOWER EXTREMITIES: 2+ pulses, warm, well-perfused. No calf tenderness. No peripheral edema. PSYCHIATRIC: Cooperative. Good eye contact. Appropriate mood and affect. SKIN: Warm, dry, normal turgor, no rashes or lesions noted, normal capillary refill. Laboratory Results - last 24 hr 03/28/18 03/28/18 03/28/18 12:34 12:35 12:35 WBC 13.9 H RBC 3.65 Hgb 12.2 Hct 36.0 MCV 98.8 H MCH 33.5 MCHC 33.9 RDW 14.7 Plt Count 226 MPV 9.7 Absolute Neuts (auto) 13.2 H Total Counted 100 Neutrophils % 95.1 H D Neutrophils % (Manual) 84.0 H Band Neutrophils % 11.0 Lymphocytes % 3.5 L D Lymphocytes % (Manual) 3.0 L Monocytes % 1.2 L Monocytes % (Manual) 1 L Eosinophils % 0.2 Eosinophils % (Manual) 1.0 Basophils % 0.0 Nucleated RBC % 0 Platelet Estimate Adequate PT with INR 13.80 H INR 1.22 H PTT (Actin FS) 29.3 VBG pH POC VBG pCO2 POC VBG pO2 Mixed VBG HCO3 Sodium Potassium Chloride Carbon Dioxide Anion Gap BUN Creatinine Creat Clearance w eGFR Random Glucose Lactic Acid 1.9 Calcium Total Bilirubin AST ALT Alkaline Phosphatase Troponin I Total Protein Albumin Serum , Qual Urine Color Urine Appearance Urine pH Ur Specific [place] Urine Protein Urine Glucose (UA) Urine Ketones Urine Blood Urine Nitrite Urine Bilirubin Urine Urobilinogen Ur Leukocyte Esterase Urine WBC (Auto) Urine RBC (Auto) Ur Epithelial Cells Urine Mucus 03/28/18 03/28/18 03/28/18 12:35 12:35 12:35 WBC RBC Hgb Hct MCV MCH MCHC RDW Plt Count MPV Absolute Neuts (auto) Total Counted Neutrophils % Neutrophils % (Manual) Band Neutrophils % Lymphocytes % Lymphocytes % (Manual) Monocytes % Monocytes % (Manual) Eosinophils % Eosinophils % (Manual) Basophils % Nucleated RBC % Platelet Estimate PT with INR INR PTT (Actin FS) VBG pH 7.42 POC VBG pCO2 45.7 POC VBG pO2 67.4 H D Mixed VBG HCO3 29.2 H Sodium 139 Potassium 3.5 Chloride 102 Carbon Dioxide 31 Anion Gap 6 L BUN 29 H Creatinine 0.6 Creat Clearance w eGFR > 60 Random Glucose 191 H Lactic Acid Calcium 8.3 L Total Bilirubin 0.3 AST 25 ALT 24 Alkaline Phosphatase 88 Troponin I < 0.02 Cancelled Total Protein 6.4 Albumin 2.9 L Serum , Qual Urine Color Urine Appearance Urine pH Ur Specific [place] Urine Protein Urine Glucose (UA) Urine Ketones Urine Blood Urine Nitrite Urine Bilirubin Urine Urobilinogen Ur Leukocyte Esterase Urine WBC (Auto) Urine RBC (Auto) Ur Epithelial Cells Urine Mucus 03/28/18 03/28/18 12:35 12:50 WBC RBC Hgb Hct MCV MCH MCHC RDW Plt Count MPV Absolute Neuts (auto) Total Counted Neutrophils % Neutrophils % (Manual) Band Neutrophils % Lymphocytes % Lymphocytes % (Manual) Monocytes % Monocytes % (Manual) Eosinophils % Eosinophils % (Manual) Basophils % Nucleated RBC % Platelet Estimate PT with INR INR PTT (Actin FS) VBG pH POC VBG pCO2 POC VBG pO2 Mixed VBG HCO3 Sodium Potassium Chloride Carbon Dioxide Anion Gap BUN Creatinine Creat Clearance w eGFR Random Glucose Lactic Acid Calcium Total Bilirubin AST ALT Alkaline Phosphatase Troponin I Total Protein Albumin Serum , Qual Negative Urine Color Yellow Urine Appearance Clear Urine pH 5.0 D Ur Specific [place] 1.028 Urine Protein 2+ H Urine Glucose (UA) Negative Urine Ketones Negative Urine Blood Negative Urine Nitrite Negative Urine Bilirubin Negative Urine Urobilinogen Negative Ur Leukocyte Esterase Negative Urine WBC (Auto) 2 Urine RBC (Auto) <1 Ur Epithelial Cells Rare Urine Mucus Rare Assessment: This is a 47 year old female with PMHx of HIV/AIDS, laryngeal carcinoma s/p trach (2015) and PEG (2013), HBV, failure to thrive, who presented to the ED with nausea, vomiting, diarrhea, cough, fever since . Plan: 1) Sepsis 2/2 b/l pneumonia - WBC elevated, temp 101.4, pulse 121, resp rate 28 - BP noted to be 70s/40s. Patient reports normal for her SBP to be in the 80s - 3L NS given in the ED with SBP in 80s - Patient making urine - Lactic acid wnl - Central line placed in ED - For close monitoring in the ICU - Monitor fever curve, BP, WBC - Received Vancomycin and Zosyn in the ED, will continue - Continue IV fluids - Chest PT: patient reports she feels like she has a mucous plug - F/u ID consult - F/u ICU consult 2) Diarrhea - F/u stool studies 3) Laryngeal carcinoma - S/p trach and peg - Continue trach collar as needed 4) HIV/AIDS - Continue home medications 5) F/E/N: - Monitor electrolytes - Regular diet 6) Prophylaxis: - Heparin 5,000u sq bid - SCDs b/l 7) Dispo: - Requires continued inpatient care CODE STATUS: FULL CODE Visit type - Emergency Visit Emergency Visit: Yes ED Registration Date: 03/28/18 Care time: The patient presented to the Emergency Department on the above date and was hospitalized for further evaluation of their emergent condition. - New Patient This patient is new to me today: Yes Date on this admission: 03/28/18 - Critical Care Critical Care patient: Yes Total Critical Care Time (in minutes): 45 Critical Care Statement: The care of this patient involved high complexity decision making to prevent further life threatening deterioration of the patient 's condition and/or to evaluate & treat vital organ system(s) failure or risk of failure. Hospitalist Screening - Colonoscopy Questionnaire Colonoscopy Questionnaire: Colonoscopy Questionnaire - Patient: 50 - 75 years old and never had a screening colonoscopy: No History of colon or rectal polyps, or CA: No History of IBD, Crohn's disease or UC: No History of abdominal radiation therapy as a child: No - Relative: 1 with colon or rectal CA, or polyps at age 60 or younger: Unknown Colon or rectal CA diagnosed at age 45 or younger: Unknown Multiple relatives with colon or rectal CA: Unknown - Outcome: Screening Result: Negative Screen
[2018-03-28] MEDS ORDERED: ALBUTEROL SO4 0.083% IH SOL 2.5 MG/3 ML VIAL.NEB. NEB PRN (17:23)
[2018-03-28] MEDS ORDERED: SODIUM CHLORIDE 1,000 ML IV SCH (17:30)
[2018-03-28] MEDS ORDERED: LACTATED RINGERS SOLUTION 1,000 ML/1,000 ML INFUS.BAG IV STA (18:30)
--- NOTE | 2018-03-28 18:32 | CONSULT ---
Consult Consult Specialty:: PULM/CCM Referred by:: Dr. Naila Messer Reason for Consultation:: PNA - History of Present Illness Chief Complaint: PNA History of Present Illness: Ms Arthur is a 47 y/o woman w/ HIV/AIDS & Hep B on HAART followed by Dr. Naila Messer, c/c/b FTT now w/ PEG (2013) & laryngeal CA s/p XRT & now w/ trach (2015) (On home O2). Pt presents to ED c/o Fever --> 103, SOB, cough, CP & N/V X past 4 days [employer]. Pt notes yellow purulent mucus from her trach w/ cough as well chest discomort w/ cough &/or deep inspiration. She has also noted fevers to 103 at home that has been minimally responsive to tylenol. The patient otherwise denies any chills, abd pain, or changes w/ urination or BMs. CXR c/w multilobar PNA R > L. Pt started on Abx & sent to ICU w/ c/f hypotension w/ SBP dipping into the 80's. - History Source History Provided By: Patient, Medical Record Limitations to Obtaining History: Other (Tracheostomy but communicates well w/ passey casey) - Past Medical History Pulmonary: Yes: Asthma, Cancer (laryngeal), COPD, Other (vocal cord mass) Hepatobiliary: Yes: Hepatitis B ...LMP: 05/14/12 Heme/Onc: Yes: Cancer (Laryngeal) Infectious Disease: Yes: AIDS, HIV ENT: Yes: Other (trach in place) - Alcohol/Substance Use Hx Alcohol Use: No History of Substance Use: reports: None - Smoking History Smoking history: Current every day smoker Have you smoked in the past 12 months: Yes Aproximately how many cigarettes per day: 20 If you are a former smoker, when did you quit?: 2016 - Social History Usual Living Arrangement: With Spouse ADL: Independent History of Recent Travel: No Home Medications - Allergies Allergies/Adverse Reactions: Allergies Allergy/AdvReac Type Severity Reaction Status Date / Time sulfamethoxazole Allergy Unknown Rash Verified 03/28/18 12:08 [From Bactrim] trimethoprim [From Bactrim] Allergy Unknown Rash Verified 03/28/18 12:08 abacavir sulfate Allergy Rash Verified 03/28/18 12:08 [From Ziagen] atazanavir sulfate Allergy Rash Verified 03/28/18 12:08 [From Ted] azithromycin Allergy Rash Verified 03/28/18 12:08 dapsone Allergy Rash Verified 03/28/18 12:08 - Home Medications Home Medications: Ambulatory Orders Albuterol 0.083% Nebulizer Keyonna [Ventolin 0.083% Nebulizer Soln -] 1 neb NEB Q4H PRN #1 box MDD 6 11/18/17 Albuterol Sulfate Inhaler - [Ventolin HFA Inhaler -] 1 inh IH Q4H #1 inhaler Budesonide/Formeterol Fumarate [SYMBICORT 160/4.5mcg -] 2 inh IH BID #1 inhaler 11/18/17 Emtricitabine/Tenofovir [Truvada -] 1 tab PEG DAILY #30 tablet 11/18/17 Etravirine [Intelence -] 100 mg PEG BID #60 tablet 11/18/17 Fluticasone Prop 0.05% Nasal [Flonase -] 1 - 2 spray NS DAILY #1 spray.pump Gabapentin Liquid [Neurontin Oral Liquid -] 250 mg PO BID #1 bottle 11/18/17 Raltegravir [Isentress] 400 mg PEG BID #60 tab 11/18/17 Bacitracin - [Bacitracin Topical Ointment -] 1 applic TP BID #1 applic 03/04/18 Clonazepam [Klonopin] 1 mg PO TID PRN #90 tablet MDD 3 03/04/18 Ibuprofen 1 tab PO BID #30 tablet MDD 2 03/04/18 Mirtazapine [Remeron -] 15 mg PO DAILY #30 tablet 03/04/18 Ondansetron HCl [Zofran] 4 mg PO DAILY PRN #5 tablet MDD 1 03/04/18 Sertraline HCl [Zoloft] 50 mg PO DAILY #30 tablet 03/04/18 Sertraline HCl [Zoloft] 100 mg PO AM #30 tablet 03/04/18 Zolpidem Tartrate [Ambien] 5 mg PO HS #30 tablet MDD 1 03/04/18 Family Disease History - Family Disease History Family History: Denies Review of Systems - Review of Systems Constitutional: reports: Fever Eyes: reports: No Symptoms HENT: reports: No Symptoms Neck: reports: No Symptoms Cardiovascular: reports: Chest Pain Respiratory: reports: Cough, SOB, SOB on Exertion Gastrointestinal: reports: Nausea, Vomiting Genitourinary: reports: No Symptoms Breasts: reports: No Symptoms Reported Musculoskeletal: reports: Muscle Pain Neurological: reports: No Symptoms Endocrine: reports: No Symptoms Hematology/Lymphatic: reports: No Symptoms Psychiatric: reports: No Symptoms Pain Intensity: 4 Physical Exam Vital Signs: Vital Signs Temperature 98.8 F 03/28/18 14:55 Pulse Rate 83 03/28/18 18:10 Respiratory Rate 18 03/28/18 18:10 Blood Pressure 78/54 03/28/18 18:10 O2 Sat by Pulse Oximetry (%) 100 03/28/18 18:10 Constitutional: Yes: Calm, Cachectic, Mild Distress Eyes: Yes: WNL, Conjunctiva Clear, EOM Intact HENT: Yes: WNL, Atraumatic, Normocephalic Neck: Yes: WNL, Trachea Midline Cardiovascular: Yes: WNL, Regular Rate and Rhythm Respiratory: Yes: Rhonchi, SOB Gastrointestinal: Yes: WNL, Normal Bowel Sounds, Soft, Other (PEG) ...Rectal Exam: Yes: Deferred Renal/: Yes: WNL Breast(s): Yes: WNL Musculoskeletal: Yes: WNL Extremities: Yes: WNL Edema: No Peripheral Pulses WNL: Yes Integumentary: Yes: WNL Neurological: Yes: WNL, Alert, Oriented ...Motor Strength: WNL Psychiatric: Yes: WNL, Alert, Oriented Labs: CBC, BMP 03/28/18 12:35 03/28/18 12:35 Imaging - Results Chest X-ray: Report Reviewed (CXR 03/28: Since the prior study of 12/15/2017, there are progressive bibasilar infiltrates with right fluid and right base atelectasis. The mediastinum is not widened. The bones and soft tissues are intact. Correlation recommended.) Assessment/Plan ASSESS: This is a 47 y/o woman w/ HIV/AIDS & HBV on HAART, c/c/b laryngeal carcinoma & FTT s/p PEG (2013) & trach (2016), admitted now w/ PNA. PLAN: -Supp FiO2 for an SpO2 > 92% -Nebs -Sputum clxr -Butler Clxr [including stool studies (some report of loose stool)] -Urine Ags -CPT -Cover broad w/ Vanc & Zo -Cont HAART -Dr. Naila Messer -IVFs (Her BP is WNL) -Monitor fever curve, BP, WBC -Trend LA -Remove TLC from groin (Placed in ED for unknown reasons) -Reg Diet -SQH -SCDs -PPI CODE STATUS: FULL CODE DGL, ACNP-BC [facility] ICU PULM/CCM 4436 Critical Care Time/MDM Note Total Critical Care Time: 38 Critical Care Statement: The care of this patient involved high complexity decision making to prevent further life threatening deterioration of the patient 's condition and/or to evaluate & treat vital organ system(s) failure or risk of failure.
[2018-03-28] MEDS ORDERED: oxyCODONE HCL 5 MG TABLET PO ONE (21:15)
[2018-03-28] MEDS ORDERED: PT OWN MED DRAWER 7, Y5N ONE (21:21)
[2018-03-28] MEDS: GABAPENTIN 250 MG/5 ML ORAL SOLUTION, 470 ML BOTTLE PEG SCH (21:33)
[2018-03-28] MEDS: HEPARIN NA (PORCINE) 5,000 UNITS/ML 1ML VIAL SQ SCH (21:34)
--- NOTE | 2018-03-28 21:53 | EKG ---
Test Reason : Blood Pressure : / mmHG Vent. Rate : 113 BPM Atrial Rate : 113 BPM P-R Int : 128 ms QRS Dur : 078 ms QT Int : 308 ms P-R-T Axes : 076 -49 045 degrees QTc Int : 422 ms SINUS TACHYCARDIA LEFT ANTERIOR FASCICULAR BLOCK ABNORMAL ECG WHEN COMPARED WITH ECG OF 09-JUL-2017 15:23, T WAVE AMPLITUDE HAS DECREASED IN INFERIOR LEADS T WAVE AMPLITUDE HAS DECREASED IN ANTERIOR LEADS Confirmed by NAKITA NOYOLA MD ([id number]) on 03/28/2018 9:53:32 PM Referred By: Confirmed By:NAKITA NOYOLA MD
[2018-03-28] MEDS ORDERED: MIRTAZAPINE 15 MG TABLET (FP) PEG SCH (22:00)
[2018-03-28] MEDS ORDERED: ETRAVIRINE 200 MG TABLET PO SCH (22:00)
[2018-03-28] MEDS: RALTEGRAVIR POTASSIUM 400 MG TAB NR SCH (23:11)
[2018-03-28] MEDS: ETRAVIRINE 100 MG TABLET PO SCH (23:11)
[2018-03-28] MEDS: BUDESONIDE/FORMETEROL FUMARATE 160/4.5 mcg INHALER IH SCH (23:12)
[2018-03-28] MEDS ORDERED: LACTATED RINGERS SOLUTION 1,000 ML/1,000 ML INFUS.BAG IV SCH (23:30)
[2018-03-29] MEDS ORDERED: KETOROLAC TROMETHAMINE 30 MG/1 ML VIAL IVPUSH ONE (01:05)
[2018-03-29] MEDS ORDERED: oxyCODONE HCL 5 MG TABLET PO ONE ×2 (01:12→12:00)
[2018-03-29] MEDS ORDERED: VANCOMYCIN 750 MG in DEXTROSE 5%-WATER - 250 ML IVPB ONE (02:00)
[2018-03-29] MEDS ORDERED: ZOLPIDEM TARTRATE 5 MG TABLET PEG ONE (03:21)
[2018-03-29] MEDS ORDERED: ACETAMINOPHEN 1000 MG/100 ML VIAL (NON FORMULARY) IVPB ONE (03:22)
[2018-03-29] MEDS ORDERED: PT OWN MED DRAWER 7, Y5N ONE ×7 (04:16→21:37)
[2018-03-29 06:08] LABS: BASO % 0.1 % (0-2.0); HEMATOCRIT 27.9 % (32.4-45.2); HEMOGLOBIN 9.5 GM/dL (10.7-15.3); MCH 34.1 pg (25.7-33.7); MEAN CELL VOLUME 100.1 fl (80-96); MEAN PLT VOLUME 9.8 fl (7.5-11.1); NEUT % 85.9 % (42.8-82.8); PLATELET COUNT 171 K/MM3 (134-434); RBC 2.79 M/mm3 (3.60-5.2); RDW 14.6 % (11.6-15.6); WHITE BLOOD COUNT 7.1 K/mm3 (4.0-10.0)
[2018-03-29 06:32] LABS: CHLORIDE 108 mmol/L (98-107); POTASSIUM 3.5 mmol/L (3.5-5.1); SODIUM 143 mmol/L (136-145)
[2018-03-29 06:44] LABS: ALBUMIN 1.9 g/dl (3.4-5.0); ALK PHOS 53 U/L (45-117); ANION GAP 7 MMOL/L (8-16); BILIRUBIN,TOTAL 0.2 mg/dL (0.2-1.0); BLOOD UREA NITROGEN 18 mg/dL (7-18); CALCIUM 7.4 mg/dL (8.5-10.1); CO2 28 mmol/L (21-32); CREATININE 0.4 mg/dL (0.55-1.02); GLUCOSE,RANDOM 116 mg/dL (74-106); MAGNESIUM 1.9 mg/dL (1.8-2.4); PHOSPHOROUS 2.2 mg/dL (2.5-4.9); SGOT/AST 17 U/L (15-37); SGPT/ALT 15 U/L (12-78); TOT PROT 4.4 g/dl (6.4-8.2)
[2018-03-29] MEDS ORDERED: FLUTICASONE PROP 0.05% 16 GM NASAL SPRAY NS SCH (10:00)
[2018-03-29] MEDS ORDERED: MIRTAZAPINE 15 MG TABLET (FP) PEG SCH (10:00)
[2018-03-29] MEDS ORDERED: SERTRALINE HCL 50 MG TABLET (FP) PO SCH (10:00)
[2018-03-29] MEDS ORDERED: EMTRICITABINE 200MG/TENOFOVIR 300MG PO SCH (10:00)
--- NOTE | 2018-03-29 10:05 | PN ---
Progress Note (short form) - Note Progress Note: ID Consult dictated Gram Negative bacteremia/ sepsis Bibasilar pneumonia Exacerbation COPD HIV /AIDS Await c/s Continue zosyn ART
[2018-03-29] MEDS ORDERED: NAPH,MB-DB/K PH,MBDB POWDER PACKET PO ONE ×2 (10:15→13:38)
[2018-03-29] MEDS ORDERED: PIPERACILLIN/TAZOB 3.375 GM 3.375 GM in DEXTROSE 5%-WATER - 50 ML IVPB SCH ×2 (10:15→18:00)
[2018-03-29] MEDS: RALTEGRAVIR POTASSIUM 400 MG TAB NR SCH ×2 (10:35→22:21)
[2018-03-29] MEDS: HEPARIN NA (PORCINE) 5,000 UNITS/ML 1ML VIAL SQ SCH ×2 (10:40→22:20)
[2018-03-29] MEDS: GABAPENTIN 250 MG/5 ML ORAL SOLUTION, 470 ML BOTTLE PEG SCH ×2 (10:40→22:20)
[2018-03-29] MEDS: ETRAVIRINE 100 MG TABLET PO SCH ×2 (10:40→19:01)
[2018-03-29] MEDS ORDERED: PIPERACILLIN/TAZOBACTAM 3.375 GM VIAL IVPB ONE ×3 (11:04→17:26)
[2018-03-29] MEDS ORDERED: DEXTROSE 5%-WATER - 50 ML IVPB ONE ×3 (11:04→17:27)
[2018-03-29] MEDS: BUDESONIDE/FORMETEROL FUMARATE 160/4.5 mcg INHALER IH SCH ×2 (11:54→22:20)
[2018-03-29] MEDS ORDERED: ACETAMINOPHEN 325 MG TABLET (FP) PO ONE (12:00)
--- NOTE | 2018-03-29 13:11 | PN ---
Teaching Attending Note Name of Resident: Maria Luz Castrejon ATTENDING PHYSICIAN STATEMENT I saw and evaluated the patient. I reviewed the resident's note and discussed the case with the resident. I agree with the resident's findings and plan as documented. SUBJECTIVE: Pt seen and examined in the ICU. Still with right sided chest and back pain. + productive cough. Febrile. Blood cultures growing gram negative bacilli. OBJECTIVE: Vital Signs Period Temp Pulse Resp BP Sys/Lisa Pulse Ox Last 24 Hr 98.8 F-101.9 F 83-110 14-28 70-143/45-86 95-100 Intake & Output 03/26/18 03/27/18 03/28/18 03/29/18 23:59 23:59 23:59 23:59 Intake Total 1100 1813 Output Total 350 800 Balance 750 1013 Weight 45.3 kg Gen: NAD at rest Heart: RRR Lung: right base rales Abd: soft, nontender Ext: no edema CBC, BMP 03/29/18 05:30 03/29/18 05:30 Active Medications Albuterol Sulfate (Ventolin 0.083% Nebulizer Soln -) 1 amp NEB Q4H PRN PRN Reason: SHORT OF BREATH/WHEEZING Budesonide/Formoterol Fumarate (Symbicort 160/4.5mcg -) 2 puff IH BID [facility] Last Admin: 03/29/18 11:54 Dose: 2 puff Emtricitabine/Tenofovir (Truvada) 1 tab PO DAILY RAZ Etravirine (Intelence -) 100 mg PO BIDPC [facility] Last Admin: 03/29/18 10:40 Dose: 100 mg Fluticasone Propionate (Flonase -) 1 spray NS DAILY RAZ Gabapentin (Neurontin Oral Liquid -) 250 mg PEG BID RAZ Last Admin: 03/29/18 10:40 Dose: 250 mg Heparin Sodium (Porcine) (Heparin -) 5,000 unit SQ BID RAZ Last Admin: 03/29/18 10:40 Dose: 5,000 unit Lactated Ringer's (Lactated Ringers Solution) 1,000 ml in 1,000 mls @ 100 mls/ hr IV ASDIR RAZ Last Admin: 03/28/18 23:30 Dose: 100 mls/hr Piperacillin Sod/Tazobactam (Sod 3.375 gm/ Dextrose) 50 mls @ 100 mls/hr IVPB Q8H-IV RAZ; Protocol Last Admin: 03/29/18 11:00 Dose: 100 mls/hr Mirtazapine (Remeron -) 15 mg PEG HS [facility] Last Admin: 03/28/18 21:34 Dose: 15 mg Raltegravir (Isentress -) 400 mg NR BID [facility] Last Admin: 03/29/18 10:35 Dose: 400 mg Sertraline HCl (Zoloft -) 50 mg PO DAILY [facility] Last Admin: 03/29/18 10:35 Dose: 50 mg ASSESSMENT AND PLAN: Acute on Chronic Hypoxic Respiratory Failure Pneumonia Gram Negative Bacteremia Sepsis HIV/AIDS h/o Laryngeal Ca s/p trach/PEG - continue antibiotics - f/u cultures - IVF - pain control - chest PT/bed percussion - inhaled bronchodilators - O2 to keep SpO2 >90% - continue ART - f/u CD4 count - d/c femoral line, baseline SBP 80-100 - DVT prophylaxis - can monitor on floor critical care time spent in reviewing chart, evaluating patient and formulating plan 35 min
--- NOTE | 2018-03-29 13:14 | CONS ---
DATE OF CONSULTATION: DATE OF DICTATION: 03/29/2018 INFECTIOUS DISEASE CONSULTATION HISTORY OF PRESENT ILLNESS: The patient is a 47-year-old female with history of acquired immunodeficiency syndrome, history of laryngeal cancer, status post tracheostomy, COPD, evaluated for positive blood cultures and pneumonia. The patient was admitted to the hospital on March 28, 2018, with worsening shortness of breath, pleuritic-type chest pain, nausea, and vomiting. Patient's son was ill and was in the hospital with a dental abscess. He was discharged from the hospital on March 26. The following day, the patient developed high-grade fever to 103 associated with shortness of breath, bilateral pleuritic-type chest pain, thick tracheal secretions, cough, nausea, vomiting. She presented to the emergency room where she was noted to be hypotensive and febrile. Chest x-ray showed bibasilar infiltrates. Blood cultures are now positive for gram-negative rods. At the present time, she is awake and alert. She complains bilateral pleuritic-type chest pain and shortness of breath. She appears comfortable on nasal cannula O2. She denies recent hospitalizations. She is adherent to her antiretroviral therapy. Most recent viral markers showed nondetectable viral load and a of 632. PAST MEDICAL HISTORY: Positive for acquired immunodeficiency syndrome, laryngeal cancer status post tracheostomy, hepatitis B. PAST SURGICAL HISTORY: Status post tracheostomy and feeding gastrostomy. ALLERGIES: TO MULTIPLE MEDICATIONS INCLUDING, SULFA, ZITHROMAX, DAPSONE, ABACAVIR, REYATAZ. SHE REPORTS RASH WITH THESE MEDICATIONS. OUTPATIENT MEDICATIONS: Include Truvada, Intelence, and Isentress. SOCIAL HISTORY: Former smoker. SYSTEM REVIEW: Neurologic: No loss of consciousness, seizure activity, focal weakness. Cardiac: Negative chest pain or palpitations. Respiratory: As per HPI. Gastrointestinal: Status post feeding gastrostomy. Genitourinary: Negative for urinary tract infection. LABORATORY DATA: White count on admission 13.9, presently 7.1, hematocrit 27.9, platelet count 171. Creatinine 0.4. Urinalysis 2 white cells. Chest x-ray bibasilar infiltrates. PHYSICAL EXAMINATION: General: The patient is awake and alert, seated in bed. She is cachectic. Breathing is nonlabored. Vital Signs: Temperature 98.8, T-max 101.9, blood pressure 89/65, pulse 94 regular respirations 20 per minute. Eyes: Sclerae anicteric. Oropharynx negative for thrush. Neck: Supple. Tracheostomy site no secretions noted. Heart: Sounds S1, S2. No murmur. Lungs: Rhonchi at the bases bilaterally. Abdomen: Soft. No tenderness elicited. Feeding gastrostomy tube site, no erythema or drainage. Extremities: Negative for edema. IMPRESSION: 1. Gram-negative bacteremia/sepsis secondary to lung source. 2. Bibasilar pneumonia. 3. Exacerbation chronic obstructive pulmonary disease. 4. Acquired immunodeficiency syndrome. PLAN: Await blood culture results. Obtain suction, sputum C and S. Continue empiric Zosyn pending cultures. Continue antiretroviral therapy. Pulmonary evaluation. Thank you for the kind referral. GARRETT JULIAN M.D. [id number]
[2018-03-29] MEDS ORDERED: VANCOMYCIN 750 MG in DEXTROSE 5%-WATER - 250 ML IVPB SCH (14:00)
--- NOTE | 2018-03-29 14:27 | PN ---
Physical Exam: SUBJECTIVE: Patient seen and examined this AM. Pt continues to complain of R- sided chest wall pain, team has tried oxycodone 5 mg, 1 g Ofirmev, and Toradol. Pt also has difficulty sleeping, was provided Ambien. Pt saturating well overnight on tracheal cuff (pt usually uses 3L O2 at home). She continues to have cough with clear sputum out of the trach tube, and she was febrile overnight (101.9). Pt had no BM yet today, but had loose stool yesterday. She has also passed urine on her own with no hematuria or dysuria. Denies nausea/ vomiting, abdominal pain, joint pain, or leg swelling. OBJECTIVE: Vital Signs Period Temp Pulse Resp BP Sys/Lisa Pulse Ox Last 24 Hr 98.8 F-101.9 F 83-110 14-28 70-143/45-86 95-100 GENERAL: The patient is awake, alert, and fully oriented, saturates between 86- 90% during the exam because she attempts to speak with trach tube, which induces coughing and sputum production. Hypotensive (89/65), which is similar to pt baseline on prior visits. Pt complaining of R chest wall pain with deep breaths. HEAD: Normal with no signs of trauma. Frontal sinus tenderness to palpation. EYES: PERRL, extraocular movements intact, sclera anicteric, conjunctiva clear. No ptosis. ENT: Nares patent, oropharynx clear without exudates, moist mucous membranes. NECK: Trachea midline, full range of motion, supple. Trach tube in place, pt wearing trach cuff. LUNGS: Breath sounds equal, diminished anterior and posterior with coarse breath sounds over b/l bases. No wheezing or stridor. No accessory muscle use. HEART: Regular rate and rhythm, S1, S2 without murmur, rub or gallop. ABDOMEN: Soft, nontender, nondistended, normoactive bowel sounds, no guarding, no rebound, no hepatosplenomegaly, no masses. PEG tube in place with no exudative drainage or erythema. EXTREMITIES: 2+ pulses, warm, well-perfused, no edema. NEUROLOGICAL: Cranial nerves II through XII grossly intact. Normal speech, gait not observed. PSYCH: Normal mood, normal affect. SKIN: Warm, dry, normal turgor/no skin tenting, no rashes or lesions noted Laboratory Results - last 24 hr 03/28/18 03/29/18 03/29/18 18:55 05:30 05:30 WBC 7.1 RBC 2.79 L Hgb 9.5 L Hct 27.9 L D MCV 100.1 H MCH 34.1 H MCHC 34.0 RDW 14.6 Plt Count 171 D MPV 9.8 Absolute Neuts (auto) 6.1 Neutrophils % 85.9 H Lymphocytes % 10.0 D Monocytes % 3.0 L D Eosinophils % 1.0 D Basophils % 0.1 D Nucleated RBC % 0 Sodium 143 Potassium 3.5 Chloride 108 H Carbon Dioxide 28 Anion Gap 7 L BUN 18 Creatinine 0.4 L Creat Clearance w eGFR > 60 Random Glucose 116 H Calcium 7.4 L Phosphorus 2.2 L Magnesium 1.9 Total Bilirubin 0.2 AST 17 ALT 15 Alkaline Phosphatase 53 D Creatine Kinase 54 Troponin I < 0.02 Total Protein 4.4 L D Albumin 1.9 L Active Medications Generic Name Dose Route Start Last Admin Trade Name Freq PRN Reason Stop Dose Admin Albuterol Sulfate 1 amp 03/29/18 13:38 Ventolin 0.083% Nebulizer Soln - NEB Q4H PRN SHORT OF BREATH/WHEEZING Budesonide/Formoterol Fumarate 2 puff 03/29/18 22:00 Symbicort 160/4.5mcg - IH BID RAZ Emtricitabine/Tenofovir 1 tab 03/30/18 10:00 Truvada PO DAILY RAZ Etravirine 100 mg 03/29/18 18:30 Intelence - PO BIDPC RAZ Fluticasone Propionate 1 spray 03/30/18 10:00 Flonase - NS DAILY RAZ Gabapentin 250 mg 03/29/18 22:00 Neurontin Oral Liquid - PEG BID RAZ Heparin Sodium (Porcine) 5,000 unit 03/29/18 22:00 Heparin - SQ BID RAZ Lactated Ringer's 1,000 ml in 1,000 mls @ 100 mls/hr 03/29/18 13:38 Lactated Ringers Solution IV ASDIR RAZ Piperacillin Sod/Tazobactam 50 mls @ 100 mls/hr 03/29/18 18:00 Sod 3.375 gm/ Dextrose IVPB Q8H-IV RAZ Protocol Mirtazapine 15 mg 03/29/18 22:00 Remeron - PEG HS [facility] Raltegravir 400 mg 03/29/18 22:00 Isentress - NR BID [facility] Sertraline HCl 50 mg 03/30/18 10:00 Zoloft - PO DAILY [facility] ASSESSMENT/PLAN: Pt is a 47 yo F, with 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 1. Neuro Anxiety - pt was provided Ambien to assist with sleeping. Pain control - single Percocet () provided for pain relief. 2. Respiratory Pt using suction for trach tube, on tracheal cuff. Continuing Ventolin and Symbicort. Chest x-ray (03/28) showed bi-basilar infiltrates, with R lung fluid and R lung base atelectasis. Pt received 3L NS in ER, and 2L LR. Continue 750 mg Vanc, 3.375 g Zosyn. Cultures have shown Gram negative bacilli. Laryngeal CA - continue trach collar. 3. GI Diarrhea - stool studies and urine Ag pending 4. Heme/Onc/ID HIV/AIDS - continue home HAART medication. CD4 and CD8 counts pending - pt states last CD4 ~660 5. Prophylaxis Heparin 500 u SQ BID, SCDs b/l 6. Nutrition Order placed for 6-8 Boost per day, PRN Continue PEG tube monitoring DISPO: pt transferred to med/surg unit today. Problem List - Problems (1) Laryngeal carcinoma Code(s): C32.9 - MALIGNANT NEOPLASM OF LARYNX, UNSPECIFIED (2) Pneumonia Code(s): J18.9 - PNEUMONIA, UNSPECIFIED ORGANISM Qualifiers: Pneumonia type: due to unspecified organism Laterality: bilateral Lung location: unspecified part of lung Qualified Code(s): J18.9 - Pneumonia, unspecified organism (3) AIDS Code(s): B20 - HUMAN IMMUNODEFICIENCY VIRUS [HIV] DISEASE (4) Cough Code(s): R05 - COUGH (5) DVT prophylaxis Code(s): FTC0805 - Visit type - Emergency Visit Emergency Visit: Yes ED Registration Date: 03/28/18 Care time: The patient presented to the Emergency Department on the above date and was hospitalized for further evaluation of their emergent condition. - New Patient This patient is new to me today: Yes Date on this admission: 03/29/18 - Critical Care Critical Care patient: Yes Total Critical Care Time (in minutes): 30 Critical Care Statement: The care of this patient involved high complexity decision making to prevent further life threatening deterioration of the patient 's condition and/or to evaluate & treat vital organ system(s) failure or risk of failure. - Discharge Referral Referred to [facility] Med [facility] Yes
[2018-03-29] MEDS: FLUTICASONE PROP 0.05% 16 GM NASAL SPRAY NS SCH (14:42)
[2018-03-29] MEDS: EMTRICITABINE 200MG/TENOFOVIR 300MG PO SCH (14:46)
--- NOTE | 2018-03-29 15:33 | PN ---
Progress Note (short form) - Note Progress Note: Subjective: The patient was seen and examined at the bedside, she has no complaints at this time. She reports feeling much better today. Current Medications Generic Name Dose Route Start Last Admin Trade Name Freq PRN Reason Stop Dose Admin Albuterol Sulfate 1 amp 03/29/18 13:38 Ventolin 0.083% Nebulizer Soln - NEB Q4H PRN SHORT OF BREATH/WHEEZING Budesonide/Formoterol Fumarate 2 puff 03/29/18 22:00 Symbicort 160/4.5mcg - IH BID RAZ Emtricitabine/Tenofovir 1 tab 03/30/18 10:00 03/29/18 14:46 Truvada PO 1 tab DAILY RAZ Administration Etravirine 100 mg 03/29/18 18:30 Intelence - PO BIDPC RAZ Fluticasone Propionate 1 spray 03/30/18 10:00 03/29/18 14:42 Flonase - NS 1 spray DAILY RAZ Administration Gabapentin 250 mg 03/29/18 22:00 Neurontin Oral Liquid - PEG BID RAZ Heparin Sodium (Porcine) 5,000 unit 03/29/18 22:00 Heparin - SQ BID RAZ Lactated Ringer's 1,000 ml in 1,000 mls @ 100 mls/hr 03/29/18 13:38 Lactated Ringers Solution IV ASDIR RAZ Piperacillin Sod/Tazobactam 50 mls @ 100 mls/hr 03/29/18 18:00 Sod 3.375 gm/ Dextrose IVPB Q8H-IV RAZ Protocol Mirtazapine 15 mg 03/29/18 22:00 Remeron - PEG HS RAZ Oxycodone HCl 5 mg 03/29/18 15:58 Roxicodone - PO Q4H PRN PAIN LEVEL 6-10 Raltegravir 400 mg 03/29/18 22:00 Isentress - NR BID RAZ Sertraline HCl 50 mg 03/30/18 10:00 Zoloft - PO DAILY RAZ Objective: Vital Signs Period Temp Pulse Resp BP Sys/Lisa Pulse Ox Last 24 Hr 98.0 F-101.9 F 83-110 14-28 78-143/54-86 95-100 Physical Exam: General: NAD, A&Ox3 HEENT: + trach Lungs: Right base rales Heart: RRR, S1S2 Abd: + PEG, soft, non-tender, non-distended. Normoactive bowel sounds Ext: Warm, well-perfused. 2+ DP/PT CBCD WBC 7.1 K/mm3 (4.0-10.0) 03/29/18 05:30 RBC 2.79 M/mm3 (3.60-5.2) L 03/29/18 05:30 Hgb 9.5 GM/dL (10.7-15.3) L 03/29/18 05:30 Hct 27.9 % (32.4-45.2) L D 03/29/18 05:30 MCV 100.1 fl (80-96) H 03/29/18 05:30 MCHC 34.0 g/dl (32.0-36.0) 03/29/18 05:30 RDW 14.6 % (11.6-15.6) 03/29/18 05:30 Plt Count 171 K/MM3 (134-434) D 03/29/18 05:30 MPV 9.8 fl (7.5-11.1) 03/29/18 05:30 CMP Sodium 143 mmol/L (136-145) 03/29/18 05:30 Potassium 3.5 mmol/L (3.5-5.1) 03/29/18 05:30 Chloride 108 mmol/L (98-107) H 03/29/18 05:30 Carbon Dioxide 28 mmol/L (21-32) 03/29/18 05:30 Anion Gap 7 MMOL/L (8-16) L 03/29/18 05:30 BUN 18 mg/dL (7-18) 03/29/18 05:30 Creatinine 0.4 mg/dL (0.55-1.02) L 03/29/18 05:30 Creat Clearance w eGFR > 60 (>60) 03/29/18 05:30 Random Glucose 116 mg/dL (74-106) H 03/29/18 05:30 Calcium 7.4 mg/dL (8.5-10.1) L 03/29/18 05:30 Total Bilirubin 0.2 mg/dL (0.2-1.0) 03/29/18 05:30 AST 17 U/L (15-37) 03/29/18 05:30 ALT 15 U/L (12-78) 03/29/18 05:30 Alkaline Phosphatase 53 U/L (45-117) D 03/29/18 05:30 Total Protein 4.4 g/dl (6.4-8.2) L D 03/29/18 05:30 Albumin 1.9 g/dl (3.4-5.0) L 03/29/18 05:30 CARDIAC ENZYMES Creatine Kinase 54 IU/L (26-192) 03/28/18 18:55 Troponin I < 0.02 ng/ml (0.00-0.05) 03/28/18 18:55 Microbiology 03/28/18 12:50 Urine - Urine Clean Catch Urine Culture - Final 03/28/18 12:35 Blood - Peripheral Venous Blood Culture - Preliminary Lactose Fermenting Neg Bacilli 03/28/18 12:35 Blood - Peripheral Venous Blood Culture - Preliminary Lactose Fermenting Neg Bacilli Assessment: This is a 47 year old female with PMHx of HIV/AIDS, laryngeal carcinoma s/p trach (2015) and PEG (2013), HBV, failure to thrive, who presented to the ED with nausea, vomiting, diarrhea, cough, fever since . Plan: 1) Sepsis 2/2 b/l pneumonia, lactose fermenting negative bacilli bacteremia - On admission: WBC elevated, temp 101.4, pulse 121, resp rate 28 - WBC wnl, patient now afebrile - Continue Zosyn - Continue IV fluids - Femoral line discontinued - Chest PT: patient reports she feels like she has a mucous plug - Appreciate ID consult - Appreciate ICU consult 2) Diarrhea - F/u stool studies 3) Laryngeal carcinoma - S/p trach and peg - Continue trach collar as needed 4) HIV/AIDS - Continue home medications 5) F/E/N: - Monitor electrolytes - Regular diet 6) Prophylaxis: - Heparin 5,000u sq bid - SCDs b/l 7) Dispo: - Requires continued inpatient care CODE STATUS: FULL CODE Visit type - Emergency Visit Emergency Visit: Yes ED Registration Date: 03/28/18 Care time: The patient presented to the Emergency Department on the above date and was hospitalized for further evaluation of their emergent condition. - New Patient This patient is new to me today: No - Critical Care Critical Care patient: No
[2018-03-29] MEDS: ALBUTEROL SO4 0.083% IH SOL 2.5 MG/3 ML VIAL.NEB. NEB PRN ×2 (17:10→22:15)
[2018-03-29 18:48] LABS: HEMATOCRIT 34.4 % (32.4-45.2); HEMOGLOBIN 11.6 GM/dL (10.7-15.3); MCH 33.3 pg (25.7-33.7); MCHC 33.7 g/dl (32.0-36.0); MEAN CELL VOLUME 98.8 fl (80-96); MEAN PLT VOLUME 10.2 fl (7.5-11.1); PLATELET COUNT 230 K/MM3 (134-434); RBC 3.48 M/mm3 (3.60-5.2); RDW 14.5 % (11.6-15.6)
[2018-03-29] MEDS: PIPERACILLIN/TAZOB 3.375 GM 3.375 GM in DEXTROSE 5%-WATER - 50 ML IVPB SCH (19:00)
[2018-03-29] MEDS: oxyCODONE HCL 5 MG TABLET PO PRN (19:03)
[2018-03-29] MEDS: ACETAMINOPHEN 325 MG TABLET (FP) PO PRN (20:01)
[2018-03-29] MEDS: LACTATED RINGERS SOLUTION 1,000 ML/1,000 ML INFUS.BAG IV SCH (20:02)
[2018-03-29] MEDS: MIRTAZAPINE 15 MG TABLET (FP) PEG SCH (22:21)
[2018-03-30] MEDS ORDERED: DEXTROSE 5%-WATER - 50 ML IVPB ONE ×4 (00:04→21:16)
[2018-03-30] MEDS ORDERED: PIPERACILLIN/TAZOBACTAM 3.375 GM VIAL IVPB ONE ×4 (00:04→21:16)
[2018-03-30] MEDS: MELATONIN 5 MG TABLETS PO PRN (00:08)
[2018-03-30] MEDS: PIPERACILLIN/TAZOB 3.375 GM 3.375 GM in DEXTROSE 5%-WATER - 50 ML IVPB SCH ×5 (01:58→18:48)
[2018-03-30] MEDS: oxyCODONE HCL 5 MG TABLET PO PRN ×3 (02:57→21:24)
[2018-03-30] MEDS: ALBUTEROL SO4 0.083% IH SOL 2.5 MG/3 ML VIAL.NEB. NEB PRN ×3 (03:15→09:25)
[2018-03-30 08:24] LABS: BASO % 0.1 % (0-2.0); EOS % 0.3 % (0-4.5); HEMATOCRIT 30.9 % (32.4-45.2); HEMOGLOBIN 10.4 GM/dL (10.7-15.3); LYMPH % 7.6 % (8-40); MCH 33.3 pg (25.7-33.7); MCHC 33.6 g/dl (32.0-36.0); MEAN PLT VOLUME 9.5 fl (7.5-11.1); MONO % 5.5 % (3.8-10.2); NEUT % 86.5 % (42.8-82.8); PLATELET COUNT 204 K/MM3 (134-434); RBC 3.12 M/mm3 (3.60-5.2); RDW 14.4 % (11.6-15.6); WHITE BLOOD COUNT 8.2 K/mm3 (4.0-10.0)
[2018-03-30] MEDS ORDERED: PT OWN MED DRAWER 7, Y5N ONE ×4 (08:44→21:29)
[2018-03-30] MEDS: BUDESONIDE/FORMETEROL FUMARATE 160/4.5 mcg INHALER IH SCH (09:01)
[2018-03-30] MEDS: SERTRALINE HCL 50 MG TABLET (FP) PO SCH (09:03)
[2018-03-30] MEDS: RALTEGRAVIR POTASSIUM 400 MG TAB NR SCH ×2 (09:04→21:24)
[2018-03-30] MEDS: ETRAVIRINE 100 MG TABLET PO SCH ×2 (09:05→21:24)
[2018-03-30] MEDS: EMTRICITABINE 200MG/TENOFOVIR 300MG PO SCH (09:09)
[2018-03-30] MEDS: HEPARIN NA (PORCINE) 5,000 UNITS/ML 1ML VIAL SQ SCH ×3 (09:11→21:25)
[2018-03-30] MEDS: GABAPENTIN 250 MG/5 ML ORAL SOLUTION, 470 ML BOTTLE PEG SCH ×2 (09:12→21:58)
[2018-03-30] MEDS: ACETAMINOPHEN 325 MG TABLET (FP) PO PRN (09:14)
[2018-03-30 09:20] LABS: CHLORIDE 104 mmol/L (98-107); POTASSIUM 3.2 mmol/L (3.5-5.1); SODIUM 141 mmol/L (136-145)
[2018-03-30 09:27] LABS: ALBUMIN 1.9 g/dl (3.4-5.0); ALK PHOS 65 U/L (45-117); ANION GAP 7 MMOL/L (8-16); BILIRUBIN,TOTAL 0.2 mg/dL (0.2-1.0); BLOOD UREA NITROGEN 11 mg/dL (7-18); CALCIUM 7.8 mg/dL (8.5-10.1); CO2 30 mmol/L (21-32); CREATININE 0.4 mg/dL (0.55-1.02); GLUCOSE,RANDOM 144 mg/dL (74-106); SGOT/AST 34 U/L (15-37); SGPT/ALT 24 U/L (12-78); TOT PROT 4.9 g/dl (6.4-8.2)
--- NOTE | 2018-03-30 11:05 | PN ---
Physical Exam: SUBJECTIVE: Patient seen and examined. She is feeling SOB this morning. She had temp 103.1 last night. She was hypoxic with O2 sats 70-80s this morning. She was given albuterol and FIO2 was increased to 100%. With this, her saturation is 90% OBJECTIVE: Vital Signs Period Temp Pulse Resp BP Sys/Lisa Pulse Ox Last 24 Hr 98.0 F-103.1 F 92-116 18-22 81-129/20-73 94 GENERAL: The patient is awake, alert, and fully oriented, in no acute distress. LUNGS: Rhonchi bilaterally L>R, wheezes on R HEART: Regular rhythm, S1, S2, tachycardic without murmur, rub or gallop. ABDOMEN: Soft, nontender, nondistended, normoactive bowel sounds, no guarding, no rebound, no hepatosplenomegaly, no masses. EXTREMITIES: 2+ pulses, warm, well-perfused, no edema. Laboratory Results - last 24 hr 03/28/18 03/29/18 03/30/18 19:46 18:00 07:30 WBC 8.5 9.0 8.2 RBC 3.48 L 3.12 L Hgb 11.6 10.4 L Hct 34.4 D 30.9 L MCV 98.8 H 99.0 H MCH 33.3 33.3 MCHC 33.7 33.6 RDW 14.5 14.4 Plt Count 230 D 204 MPV 10.2 9.5 Absolute Neuts (auto) 7.1 Absolute Lymphs (auto) 1.1 Neutrophils % 86.5 H Lymphocytes % 7.6 L D Monocytes % 5.5 D Eosinophils % 0.3 Basophils % 0.1 Nucleated RBC % 0 Lymphocytes 13 Nucleated RBCs TNP Sodium Potassium Chloride Carbon Dioxide Anion Gap BUN Creatinine Creat Clearance w eGFR Random Glucose Calcium Total Bilirubin AST ALT Alkaline Phosphatase Total Protein Albumin Absolute CD3 Count 644 % CD3+ Lymphocytes 58.5 Absolute CD4 [place] 311 L % CD4+ Lymphocyte 28.3 L CD4/CD8 Ratio 0.94 % CD8+ Lymphocyte 30.2 Absolute CD8 Count 332 03/30/18 07:30 WBC RBC Hgb Hct MCV MCH MCHC RDW Plt Count MPV Absolute Neuts (auto) Absolute Lymphs (auto) Neutrophils % Lymphocytes % Monocytes % Eosinophils % Basophils % Nucleated RBC % Lymphocytes Nucleated RBCs Sodium 141 Potassium 3.2 L Chloride 104 Carbon Dioxide 30 Anion Gap 7 L BUN 11 Creatinine 0.4 L Creat Clearance w eGFR > 60 Random Glucose 144 H Calcium 7.8 L Total Bilirubin 0.2 AST 34 ALT 24 Alkaline Phosphatase 65 D Total Protein 4.9 L Albumin 1.9 L Absolute CD3 Count % CD3+ Lymphocytes Absolute CD4 [place] % CD4+ Lymphocyte CD4/CD8 Ratio % CD8+ Lymphocyte Absolute CD8 Count Active Medications Generic Name Dose Route Start Last Admin Trade Name Freq PRN Reason Stop Dose Admin Acetaminophen 650 mg 03/29/18 19:51 03/30/18 09:14 Tylenol - PO 650 mg Q6H PRN Administration FEVER Albuterol Sulfate 1 amp 03/29/18 13:38 03/30/18 09:25 Ventolin 0.083% Nebulizer Soln - NEB 1 amp Q4H PRN Administration SHORT OF BREATH/WHEEZING Albuterol/Ipratropium 1 amp 03/30/18 12:00 Duoneb - NEB RQID RAZ Budesonide/Formoterol Fumarate 2 puff 03/29/18 22:00 03/30/18 09:01 Symbicort 160/4.5mcg - IH 2 puff BID RAZ Administration Emtricitabine/Tenofovir 1 tab 03/30/18 10:00 03/30/18 09:09 Truvada PO 1 tab DAILY RAZ Administration Etravirine 100 mg 03/29/18 18:30 03/30/18 09:05 Intelence - PO 100 mg BIDPC RAZ Administration Fluticasone Propionate 1 spray 03/30/18 10:00 03/29/18 14:42 Flonase - NS 1 spray DAILY RAZ Administration Gabapentin 250 mg 03/29/18 22:00 03/30/18 09:12 Neurontin Oral Liquid - PEG 250 mg BID RAZ Administration Heparin Sodium (Porcine) 5,000 unit 03/30/18 15:00 Heparin - SQ TID RAZ Lactated Ringer's 1,000 ml in 1,000 mls @ 100 mls/hr 03/29/18 13:38 03/29/18 20:02 Lactated Ringers Solution IV 100 mls/hr ASDIR RAZ Administration Piperacillin Sod/Tazobactam 50 mls @ 100 mls/hr 03/29/18 18:00 03/30/18 09:01 Sod 3.375 gm/ Dextrose IVPB 100 mls/hr Q8H-IV RAZ Administration Protocol Melatonin 5 mg 03/29/18 23:57 03/30/18 00:08 Melatonin PO 5 mg HS PRN Administration INSOMNIA Mirtazapine 15 mg 03/29/18 22:00 03/29/18 22:21 Remeron - PEG 15 mg HS RAZ Administration Oxycodone HCl 5 mg 03/29/18 15:58 03/30/18 02:57 Roxicodone - PO 5 mg Q4H PRN Administration PAIN LEVEL 6-10 Raltegravir 400 mg 03/29/18 22:00 03/30/18 09:04 Isentress - NR 400 mg BID RAZ Administration Sertraline HCl 50 mg 03/30/18 10:00 03/30/18 09:03 Zoloft - PO 50 mg DAILY RAZ Administration ASSESSMENT/PLAN: This is a 47 year old woman with a history of AIDS, laryngeal cancer, trach, PEG , hepatitis B, failure to thrive who presented to the ED with nausea, vomiting, diarrhea, cough, and fever. 1. Gram negative sepsis secondary to pneumonia with bacteremia - Still febrile and hypoxic requiring 100% FIO2 - Consider worsening pneumonia, PE, ARDS - Continue Zosyn, Symbicort, albuterol as needed - Start DuoNeb - Continue oxygen to maintain saturation >90% - Follow up blood cultures - Chest CXR - Pulmonary follow up 2. Hypokalemia - Replete potassium 3. Asthma/COPD - Continue Symbicort - Start DuoNeb - Continue albuterol as needed 4. Diarrhea - Stool O&P pending 5. Laryngeal carcinoma - Has trach and peg 6. AIDS - Continue Isentress, Viola Obando Visit type - Emergency Visit Emergency Visit: Yes ED Registration Date: 03/28/18 Care time: The patient presented to the Emergency Department on the above date and was hospitalized for further evaluation of their emergent condition. - New Patient This patient is new to me today: Yes Date on this admission: 03/30/18 - Critical Care Critical Care patient: Yes Total Critical Care Time (in minutes): 35 Critical Care Statement: The care of this patient involved high complexity decision making to prevent further life threatening deterioration of the patient 's condition and/or to evaluate & treat vital organ system(s) failure or risk of failure. - Discharge Referral Referred to [facility] No
[2018-03-30] MEDS: ALBUTEROL SO4 2.5/IPRATROPIUM 0.5 INH SOL 3 ML VIAL.NEB. NEB SCH ×3 (11:25→20:55)
[2018-03-30] MEDS: FLUTICASONE PROP 0.05% 16 GM NASAL SPRAY NS SCH (12:08)
--- NOTE | 2018-03-30 13:21 | PN ---
Progress Note, Physician History of Present Illness: PULMONARY ALERT,C/O INCREASED SOB TODAY,WORSENING HYPOXEMIA. CHEST X-RAY WORSENING ASAEL INFILTRATES - Current Medication List Current Medications: Active Medications Acetaminophen (Tylenol -) 650 mg PO Q6H PRN PRN Reason: FEVER Last Admin: 03/30/18 09:14 Dose: 650 mg Albuterol Sulfate (Ventolin 0.083% Nebulizer Soln -) 1 amp NEB Q4H PRN PRN Reason: SHORT OF BREATH/WHEEZING Last Admin: 03/30/18 09:25 Dose: 1 amp Albuterol/Ipratropium (Duoneb -) 1 amp NEB RQID RAZ Budesonide/Formoterol Fumarate (Symbicort 160/4.5mcg -) 2 puff IH BID [facility] Last Admin: 03/30/18 09:01 Dose: 2 puff Emtricitabine/Tenofovir (Truvada) 1 tab PO DAILY [facility] Last Admin: 03/30/18 09:09 Dose: 1 tab Etravirine (Intelence -) 100 mg PO BIDPC [facility] Last Admin: 03/30/18 09:05 Dose: 100 mg Fluticasone Propionate (Flonase -) 1 spray NS DAILY [facility] Last Admin: 03/30/18 12:08 Dose: 1 spray Gabapentin (Neurontin Oral Liquid -) 250 mg PEG BID [facility] Last Admin: 03/30/18 09:12 Dose: 250 mg Heparin Sodium (Porcine) (Heparin -) 5,000 unit SQ TID RAZ Lactated Ringer's (Lactated Ringers Solution) 1,000 ml in 1,000 mls @ 100 mls/ hr IV ASDIR RAZ Last Admin: 03/29/18 20:02 Dose: 100 mls/hr Piperacillin Sod/Tazobactam (Sod 3.375 gm/ Dextrose) 50 mls @ 100 mls/hr IVPB Q8H-IV RAZ; Protocol Last Admin: 03/30/18 09:01 Dose: 100 mls/hr Melatonin (Melatonin) 5 mg PO HS PRN PRN Reason: INSOMNIA Last Admin: 03/30/18 00:08 Dose: 5 mg Mirtazapine (Remeron -) 15 mg PEG HS [facility] Last Admin: 03/29/18 22:21 Dose: 15 mg Oxycodone HCl (Roxicodone -) 5 mg PO Q4H PRN PRN Reason: PAIN LEVEL 6-10 Last Admin: 03/30/18 11:23 Dose: 5 mg Raltegravir (Isentress -) 400 mg NR BID [facility] Last Admin: 03/30/18 09:04 Dose: 400 mg Sertraline HCl (Zoloft -) 50 mg PO DAILY [facility] Last Admin: 03/30/18 09:03 Dose: 50 mg - Objective Vital Signs: Vital Signs Temperature 99.2 F 03/30/18 10:00 Pulse Rate 116 H 03/30/18 09:00 Respiratory Rate 18 03/30/18 09:00 Blood Pressure 106/60 03/30/18 09:00 O2 Sat by Pulse Oximetry (%) 94 L 03/29/18 17:11 Constitutional: Yes: Calm, Thin Eyes: Yes: WNL HENT: Yes: WNL Neck: Yes: Supple (INFILTRATES) Cardiovascular: Yes: Regular Rate and Rhythm, S1, S2 Respiratory: Yes: Rhonchi (FEW SCATTERED ASAEL INFILTRATES) Labs: CBC, BMP 03/30/18 07:30 03/30/18 07:30 INR, PTT INR 1.22 (0.83-1.09) H 03/28/18 12:35 Problem List - Problems (1) Acute on chronic respiratory failure with hypoxia and hypercapnia Code(s): J96.21 - ACUTE AND CHRONIC RESPIRATORY FAILURE WITH HYPOXIA; J96.22 - ACUTE AND CHRONIC RESPIRATORY FAILURE WITH HYPERCAPNIA (2) Laryngeal carcinoma Code(s): C32.9 - MALIGNANT NEOPLASM OF LARYNX, UNSPECIFIED (3) Pneumonia Code(s): J18.9 - PNEUMONIA, UNSPECIFIED ORGANISM Qualifiers: Pneumonia type: due to unspecified organism Laterality: bilateral Lung location: unspecified part of lung Qualified Code(s): J18.9 - Pneumonia, unspecified organism (4) AIDS Code(s): B20 - HUMAN IMMUNODEFICIENCY VIRUS [HIV] DISEASE (5) Difficulty breathing Code(s): R06.89 - OTHER ABNORMALITIES OF BREATHING (6) HIV (human immunodeficiency virus infection) Code(s): Z21 - ASYMPTOMATIC HUMAN IMMUNODEFICIENCY VIRUS INFECTION STATUS (7) Head and neck cancer Code(s): C76.0 - MALIGNANT NEOPLASM OF HEAD, FACE AND NECK Assessment/Plan SSESSMENT AND PLAN: Acute on Chronic Hypoxic Respiratory Failure Pneumonia Gram Negative Bacteremia Sepsis HIV/AIDS h/o Laryngeal Ca s/p trach/PEG - continue antibiotics - short couse of medrol - if pt developes increased resp distress,hypoxemia will place on vent support and transfer to icu - IVF - pain control - chest PT/bed percussion - inhaled bronchodilators - O2 to keep SpO2 >90% - continue ART - f/u CD4 count - DVT prophylaxis DR MAYER
[2018-03-30] MEDS ORDERED: methylPREDNISolone NA SUCC 125 MG/2 ML VIAL ONE (14:28)
[2018-03-30] MEDS: methylPREDNISolone NA SUCC 40 MG/1 ML VIAL IVPUSH SCH ×2 (14:38→21:25)
[2018-03-30] MEDS ORDERED: PROPOFOL 20 ML ONE (15:13)
--- NOTE | 2018-03-30 15:17 | CONSULT ---
Consultation: REQUESTING PROVIDER: CONSULT REQUEST: We have been asked to medically evaluate this patient for respiratory distress from the med/surg unit. HISTORY OF PRESENT ILLNESS: Pt, with PMH of HIV/AIDS, laryngeal carcinoma s/p trach (2015) and PEG (2013), HBV, failure to thrive, presented to the ED with nausea, vomiting, diarrhea, cough, and fever (Tmax) since 03/18/2018. She also had R-sided chest pain which would become worse with deep breaths, and has been associated with increased sputum production from her trach. She denies any chills, headache, dizziness, urinary symptoms, lower extremity swelling, or difficulty with peg feeding. She was admitted to the ICU During her stay in the unit before being transferred to the floor, the pt complained of R-sided chest wall pain, which was controlled with Percocet. Pt also had difficulty sleeping, and was provided Ambien. Pt was saturating well overnight on tracheal cuff (pt usually uses 3L O2 at home). She continued to have cough with clear sputum out of the trach tube, and she was febrile overnight (101.9). Pt had regular BMs. She also passed urine on her own with no hematuria or dysuria. She denied nausea/vomiting, abdominal pain, joint pain, or leg swelling. She was stable and transferred to the floor. Today on the floor (per Dr. Leung), the pt became hypoxemic (O2 sat 70s-80s). Respiratory was called to increase O2 via trach tube, O2 sat increased back to 100%, but they would like to transfer back to the ICU due to concerns for continued respiratory monitoring. Chest x-ray today showed worsening b/l infiltrates R>L. She has grown Klebsiella pneumonia. When she arrived at the ICU, O2 sat remained low (70s), and she was ventilated via BVM before the trach was changed and she was connected to ventilator. Vent settings: TV 320, RR 16, FiO2 80%, PEEP 15. Saturating 100%. Will continue to wean FiO2 (down to 60) before reducing PEEP. REVIEW OF SYSTEMS: CONSTITUTIONAL: Absent: Diaphoresis, generalized weakness, malaise, loss of appetite, weight change. +Fevers and chills. HEENT: Absent: rhinorrhea, throat pain, throat swelling, difficulty swallowing, mouth swelling, ear pain, eye pain, visual changes. +sinus congestion CARDIOVASCULAR: Absent: syncope, palpitations, irregular heart rate, lightheadedness, peripheral edema +R-sided chest pain with deep inspiration RESPIRATORY: Absent: orthopnea, wheezing, stridor, hemoptysis +cough and SOB GASTROINTESTINAL: Absent: abdominal pain, abdominal distension, nausea, vomiting, diarrhea, constipation, melena, hematochezia GENITOURINARY: Absent: dysuria, frequency, urgency, hesitancy, hematuria, flank pain, genital pain MUSCULOSKELETAL: Absent: myalgia, arthralgia, joint swelling, back pain, neck pain SKIN: Absent: rash, itching, pallor HEMATOLOGIC/IMMUNOLOGIC: Absent: easy bleeding, easy bruising, lymphadenopathy ENDOCRINE: Absent: unexplained weight gain, unexplained weight loss, heat intolerance, cold intolerance NEUROLOGIC: Absent: headache, focal weakness or paresthesias, dizziness, unsteady gait, seizure, mental status changes, bladder or bowel incontinence PSYCHIATRIC: Absent: anxiety, depression, suicidal or homicidal ideation, hallucinations. PHYSICAL EXAMINATION Vital Signs - 24 hr 03/29/18 03/29/18 03/29/18 17:11 18:48 20:00 Temperature 99.7 F H 103.1 F H Pulse Rate 92 H 113 H Respiratory 22 Rate Blood Pressure 117/61 O2 Sat by Pulse 94 L Oximetry (%) 03/29/18 03/29/18 03/30/18 21:00 22:00 06:27 Temperature 99.6 F 98.3 F Pulse Rate 110 H 99 H Respiratory 18 18 18 Rate Blood Pressure 101/67 81/20 O2 Sat by Pulse Oximetry (%) 03/30/18 03/30/18 09:00 10:00 Temperature 99.2 F Pulse Rate 116 H Respiratory 18 Rate Blood Pressure 106/60 O2 Sat by Pulse Oximetry (%) GENERAL: Awake, alert, and fully oriented. O2 Saturation 70s when arrived in ICU. Appears anxious. HEAD: Normal with no signs of trauma. EYES: Pupils equal, round and reactive to light, extraocular movements intact, sclera anicteric, conjunctiva clear. No lid lag. EARS, NOSE, THROAT: Nares patent, oropharynx clear without exudates. Moist mucous membranes. Trach tube intact, limited fluid drawn from suction. NECK: Normal range of motion, supple without lymphadenopathy, JVD, or masses. LUNGS: Coarse breath sounds and crackles b/l, R anterior meza > L. No wheezes. No accessory muscle use. HEART: Sinus tachycardia, normal S1 and S2 without murmur, rub or gallop. ABDOMEN: Soft, nontender, not distended, normoactive bowel sounds, no guarding, no rebound, no masses. No hepatomegaly or splenomegaly. MUSCULOSKELETAL: Normal range of motion at all joints. No bony deformities or tenderness. No CVA tenderness. UPPER EXTREMITIES: 2+ pulses, warm, well-perfused. No cyanosis. No clubbing. Cap refill <2 seconds. No peripheral edema. LOWER EXTREMITIES: 2+ pulses, warm, well-perfused. No calf tenderness. No peripheral edema. NEUROLOGICAL: Cranial nerves II-XII intact. Normal speech. Normal gait. PSYCHIATRIC: Cooperative, but anxious. Good eye contact. Appropriate mood and affect. SKIN: Warm, dry, normal turgor, no rashes or lesions noted. Laboratory Results - last 24 hr 03/28/18 03/29/18 03/30/18 19:46 18:00 07:30 WBC 8.5 9.0 8.2 RBC 3.48 L 3.12 L Hgb 11.6 10.4 L Hct 34.4 D 30.9 L MCV 98.8 H 99.0 H MCH 33.3 33.3 MCHC 33.7 33.6 RDW 14.5 14.4 Plt Count 230 D 204 MPV 10.2 9.5 Absolute Neuts (auto) 7.1 Absolute Lymphs (auto) 1.1 Neutrophils % 86.5 H Lymphocytes % 7.6 L D Monocytes % 5.5 D Eosinophils % 0.3 Basophils % 0.1 Nucleated RBC % 0 Lymphocytes 13 Nucleated RBCs TNP Sodium Potassium Chloride Carbon Dioxide Anion Gap BUN Creatinine Creat Clearance w eGFR Random Glucose Calcium Total Bilirubin AST ALT Alkaline Phosphatase Total Protein Albumin Absolute CD3 Count 644 % CD3+ Lymphocytes 58.5 Absolute CD4 [place] 311 L % CD4+ Lymphocyte 28.3 L CD4/CD8 Ratio 0.94 % CD8+ Lymphocyte 30.2 Absolute CD8 Count 332 03/30/18 07:30 WBC RBC Hgb Hct MCV MCH MCHC RDW Plt Count MPV Absolute Neuts (auto) Absolute Lymphs (auto) Neutrophils % Lymphocytes % Monocytes % Eosinophils % Basophils % Nucleated RBC % Lymphocytes Nucleated RBCs Sodium 141 Potassium 3.2 L Chloride 104 Carbon Dioxide 30 Anion Gap 7 L BUN 11 Creatinine 0.4 L Creat Clearance w eGFR > 60 Random Glucose 144 H Calcium 7.8 L Total Bilirubin 0.2 AST 34 ALT 24 Alkaline Phosphatase 65 D Total Protein 4.9 L Albumin 1.9 L Absolute CD3 Count % CD3+ Lymphocytes Absolute CD4 [place] % CD4+ Lymphocyte CD4/CD8 Ratio % CD8+ Lymphocyte Absolute CD8 Count Active Medications Generic Name Dose Route Start Last Admin Trade Name Freq PRN Reason Stop Dose Admin Acetaminophen 650 mg 03/29/18 19:51 03/30/18 09:14 Tylenol - PO 650 mg Q6H PRN Administration FEVER Albuterol Sulfate 1 amp 03/29/18 13:38 03/30/18 09:25 Ventolin 0.083% Nebulizer Soln - NEB 1 amp Q4H PRN Administration SHORT OF BREATH/WHEEZING Albuterol/Ipratropium 1 amp 03/30/18 12:00 03/30/18 11:25 Duoneb - NEB 1 amp RQID RAZ Administration Budesonide/Formoterol Fumarate 2 puff 03/29/18 22:00 03/30/18 09:01 Symbicort 160/4.5mcg - IH 2 puff BID RAZ Administration Chlorhexidine Gluconate 1 applic 03/30/18 22:00 Hibiclens For Decolonization - TP HS RAZ Emtricitabine/Tenofovir 1 tab 03/30/18 10:00 03/30/18 09:09 Truvada PO 1 tab DAILY RAZ Administration Etravirine 100 mg 03/29/18 18:30 03/30/18 09:05 Intelence - PO 100 mg BIDPC RAZ Administration Fluticasone Propionate 1 spray 03/30/18 10:00 03/30/18 12:08 Flonase - NS 1 spray DAILY RAZ Administration Gabapentin 250 mg 03/29/18 22:00 03/30/18 09:12 Neurontin Oral Liquid - PEG 250 mg BID RAZ Administration Heparin Sodium (Porcine) 5,000 unit 03/30/18 15:00 03/30/18 14:31 Heparin - SQ 5,000 unit TID RAZ Administration Lactated Ringer's 1,000 ml in 1,000 mls @ 100 mls/hr 03/29/18 13:38 03/29/18 20:02 Lactated Ringers Solution IV 100 mls/hr ASDIR RAZ Administration Piperacillin Sod/Tazobactam 50 mls @ 100 mls/hr 03/29/18 18:00 03/30/18 09:01 Sod 3.375 gm/ Dextrose IVPB 100 mls/hr Q8H-IV RAZ Administration Protocol Melatonin 5 mg 03/29/18 23:57 03/30/18 00:08 Melatonin PO 5 mg HS PRN Administration INSOMNIA Methylprednisolone Sodium Succinate 40 mg 03/30/18 15:00 03/30/18 14:38 Solu-Medrol - IVPUSH 40 mg Q6H-IV RAZ Administration Mirtazapine 15 mg 03/29/18 22:00 03/29/18 22:21 Remeron - PEG 15 mg HS RAZ Administration Mupirocin 1 applic 03/30/18 22:00 Bactroban Ointment (For Decolonization) - NS 04/04/18 21:59 BID RAZ Oxycodone HCl 5 mg 03/29/18 15:58 03/30/18 11:23 Roxicodone - PO 5 mg Q4H PRN Administration PAIN LEVEL 6-10 Raltegravir 400 mg 03/29/18 22:00 03/30/18 09:04 Isentress - NR 400 mg BID RAZ Administration Sertraline HCl 50 mg 03/30/18 10:00 03/30/18 09:03 Zoloft - PO 50 mg DAILY RAZ Administration ASSESSMENT/PLAN: Pt is a 47 yo F, with 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 1. Neuro Anxiety - pt was provided Versed drip for comfort Pain control as needed. Percocet has helped. 2. Respiratory Changed pt from trach cuff to ventilator. Ventilator settings as above. Will continue weaning from FiO2, until PEEP can be reduced. Continuing Ventolin and Symbicort. Chest x-ray today showed worsening bi-basilar infiltrates, with R lung fluid and R lung base atelectasis (worsened R lung today). Continue 3.375 g Zosyn (day 3). Cultures have shown Klebsiella pneumonia. Laryngeal CA - continue ventilation. 3. GI Diarrhea - stool studies and urine Ag pending 4. Heme/Onc/ID HIV/AIDS - continue home HAART medication. CD3 644, CD4 311, CD8 332 Klebsiella pnx - ID on board. Continuing Zosyn as above. 5. Prophylaxis Heparin 500 u SQ BID, SCDs b/l 6. Nutrition Order placed for 6-8 Boost per day, PRN Continue PEG tube monitoring Dispo: We will continue to follow the patient. Thank you for this consultative opportunity. Problem List - Problems (1) Laryngeal carcinoma Code(s): C32.9 - MALIGNANT NEOPLASM OF LARYNX, UNSPECIFIED (2) Pneumonia Code(s): J18.9 - PNEUMONIA, UNSPECIFIED ORGANISM Qualifiers: Pneumonia type: due to unspecified organism Laterality: bilateral Lung location: unspecified part of lung Qualified Code(s): J18.9 - Pneumonia, unspecified organism (3) AIDS Code(s): B20 - HUMAN IMMUNODEFICIENCY VIRUS [HIV] DISEASE (4) Cough Code(s): R05 - COUGH (5) DVT prophylaxis Code(s): [id number] - Visit type - Emergency Visit Emergency Visit: Yes ED Registration Date: 03/28/18 Care time: The patient presented to the Emergency Department on the above date and was hospitalized for further evaluation of their emergent condition. - New Patient This patient is new to me today: No - Critical Care Critical Care patient: Yes Total Critical Care Time (in minutes): 40 Critical Care Statement: The care of this patient involved high complexity decision making to prevent further life threatening deterioration of the patient 's condition and/or to evaluate & treat vital organ system(s) failure or risk of failure.
--- NOTE | 2018-03-30 15:43 | PROC ---
Procedure Note Procedure: TRACHEOSTOMY CHANGE Pt hypoxic on 100% FiO2, Portex 8mm cuffed nonfenestrated trach inserted into stoma, no complications. Attached to ventilator, TV 320, R 16, FiO2 100%, PEEP 15. Jose Hyman MD
[2018-03-30] MEDS ORDERED: MIDAZOLAM 100 MG in SODIUM CHLORIDE 100 ML IVPB SCH (15:45)
[2018-03-30] MEDS ORDERED: POTASSIUM CHLORIDE ORAL LIQUID 20 MEQ/15 ML PO ONE (16:15)
[2018-03-30] MEDS: LACTATED RINGERS SOLUTION 1,000 ML/1,000 ML INFUS.BAG IV SCH (16:17)
[2018-03-30] MEDS ORDERED: POTASSIUM CHLORIDE ORAL LIQUID 20 MEQ/15 ML PEG ONE (17:07)
[2018-03-30 17:38] LABS: ARTERIAL BLD GAS O2 SATURATION 99.2 % (90-98.9); ARTERIAL BLOOD GAS BASE EXCESS 5.4 meq/l (-2-2); ARTERIAL BLOOD GAS PCO2 45.9 mmHg (35-45); ARTERIAL BLOOD GAS pH 7.43 (7.35-7.45)
[2018-03-30 17:53] LABS: ALLENS TEST POSITIVE
--- NOTE | 2018-03-30 18:08 | PN ---
Progress Note (short form) - Note Progress Note: transferred to ICU with progressive hypoxia cxray with bilateral infiltrates and effusions placed on vent via trach received at leat 4 liters IVF since admission alert nad Vital Signs Period Temp Pulse Resp BP Sys/Lisa Pulse Ox Last 24 Hr 98.3 F-103.1 F 97-117 16-25 79-135/20-91 86 cor-rrr trach to vent lungs decreased bs at bases abd soft, +GT ext no edema CBC, BMP 03/30/18 07:30 03/30/18 07:30 Microbiology 03/28/18 12:35 Blood - Peripheral Venous Blood Culture - Final Klebsiella Pneumoniae 03/28/18 12:35 Blood - Peripheral Venous Blood Culture - Final Klebsiella Pneumoniae 03/28/18 12:50 Urine - Urine Clean Catch Urine Culture - Final Microbiology 03/28/18 12:35 Blood - Peripheral Venous Blood Culture - Final Klebsiella Pneumoniae 03/28/18 12:35 Blood - Peripheral Venous Blood Culture - Final Klebsiella Pneumoniae 03/28/18 12:50 Urine - Urine Clean Catch Urine Culture - Final a/p Gram negative sepsis/bacteremia/pneumonia-klebsiella suspect component of volume overload with new bilateral effusions comfortable on vent continue zosyn repeat blood cultures in am sputum culture HIV- stable-continue meds history of laryngeal cancer
[2018-03-30] MEDS: MUPIROCIN 2% TOPICAL OINTMENT FOR DECOLONIZATION NS SCH (21:25)
[2018-03-30] MEDS: MIRTAZAPINE 15 MG TABLET (FP) PEG SCH (21:30)
[2018-03-30] MEDS: CHLORHEXIDINE GLUCONATE 4% CLEANSER FOR DECOLONIZATION TP SCH (22:00)
[2018-03-31] MEDS: BUDESONIDE/FORMETEROL FUMARATE 160/4.5 mcg INHALER IH SCH ×3 (00:57→21:50)
[2018-03-31] MEDS: PIPERACILLIN/TAZOB 3.375 GM 3.375 GM in DEXTROSE 5%-WATER - 50 ML IVPB SCH ×2 (01:10→09:41)
[2018-03-31] MEDS: methylPREDNISolone NA SUCC 40 MG/1 ML VIAL IVPUSH SCH ×3 (04:00→18:06)
[2018-03-31 06:12] LABS: HEMATOCRIT 32.1 % (32.4-45.2); HEMOGLOBIN 10.6 GM/dL (10.7-15.3); MCH 32.6 pg (25.7-33.7); MCHC 33.2 g/dl (32.0-36.0); MEAN CELL VOLUME 98.3 fl (80-96); MEAN PLT VOLUME 9.6 fl (7.5-11.1); MONO % 3.2 % (3.8-10.2); NEUT % 88.8 % (42.8-82.8); PLATELET COUNT 216 K/MM3 (134-434); RBC 3.27 M/mm3 (3.60-5.2); RDW 14.6 % (11.6-15.6)
[2018-03-31] MEDS: HEPARIN NA (PORCINE) 5,000 UNITS/ML 1ML VIAL SQ SCH ×3 (06:18→21:49)
[2018-03-31 06:50] LABS: CHLORIDE 103 mmol/L (98-107); POTASSIUM 3.9 mmol/L (3.5-5.1); SODIUM 142 mmol/L (136-145)
[2018-03-31 07:01] LABS: ALBUMIN 2.1 g/dl (3.4-5.0); ALK PHOS 75 U/L (45-117); ANION GAP 7 MMOL/L (8-16); BILIRUBIN,TOTAL 0.3 mg/dL (0.2-1.0); BLOOD UREA NITROGEN 15 mg/dL (7-18); CALCIUM 8.4 mg/dL (8.5-10.1); CO2 32 mmol/L (21-32); CREATININE 0.3 mg/dL (0.55-1.02); GLUCOSE,RANDOM 125 mg/dL (74-106); SGOT/AST 31 U/L (15-37); SGPT/ALT 25 U/L (12-78); TOT PROT 5.3 g/dl (6.4-8.2)
--- NOTE | 2018-03-31 07:03 | PN ---
Physical Exam: SUBJECTIVE: Patient seen and examined this AM. No acute events overnight. Pt has been stable on ventilator assist, and has been weaned (80 FiO2 to 40, and PEEP 15 to 10), with good O2 saturation (99%). Pt states chest pain and SOB has improved. Her last BM was yesterday, and she has no dysuria or hematuria with urination. She denies fevers/chills, nausea/vomiting, abdominal pain, joint pain , or leg swelling. Vent settings: RR 14, PEEP 10, FIO2 40, TV 320. OBJECTIVE: Vital Signs Period Temp Pulse Resp BP Sys/Lisa Pulse Ox Last 24 Hr 98.4 F-99.2 F 82-117 16-27 79-135/56-91 0-86 GENERAL: The patient is awake, alert, and fully oriented, in no acute distress. HEAD: Normal with no signs of trauma. EYES: PERRL, extraocular movements intact, sclera anicteric, conjunctiva clear. No ptosis. ENT: Nares patent, oropharynx clear without exudates, moist mucous membranes. Yellow/brown sputum production from trach site. NECK: Trachea midline, full range of motion, supple. LUNGS: Breath sounds equal, coarse over R lung base (improved from yesterday), no wheezes, no crackles, no accessory muscle use. HEART: Regular rate and rhythm, S1, S2 without murmur, rub or gallop. ABDOMEN: Soft, nontender, nondistended, normoactive bowel sounds, no guarding, no rebound, no hepatosplenomegaly, no masses. EXTREMITIES: 2+ pulses, warm, well-perfused, no edema. NEUROLOGICAL: Cranial nerves II through XII grossly intact. Normal speech, gait not observed. PSYCH: Pt emotional and becomes easily upset due to tasks that she now can't perform with the ventilator (brushing teeth, suctioning). SKIN: Warm, dry, normal turgor, no rashes or lesions noted Laboratory Results - last 24 hr 03/28/18 03/30/18 03/30/18 19:46 07:30 07:30 WBC 8.5 8.2 RBC 3.12 L Hgb 10.4 L Hct 30.9 L MCV 99.0 H MCH 33.3 MCHC 33.6 RDW 14.4 Plt Count 204 MPV 9.5 Absolute Neuts (auto) 7.1 Absolute Lymphs (auto) 1.1 Neutrophils % 86.5 H Lymphocytes % 7.6 L D Monocytes % 5.5 D Eosinophils % 0.3 Basophils % 0.1 Nucleated RBC % 0 Lymphocytes 13 Nucleated RBCs TNP Anticoagulation Therapy Puncture Site ABG pH ABG pCO2 at Pt Temp ABG pO2 at Pt Temp ABG HCO3 ABG O2 Sat (Measured) ABG O2 Content ABG Base Excess Aureliano Test O2 Delivery Device Oxygen Flow Rate Vent Mode Vent Rate Mechanical Rate PEEP Pressure Support Vent Sodium 141 Potassium 3.2 L Chloride 104 Carbon Dioxide 30 Anion Gap 7 L BUN 11 Creatinine 0.4 L Creat Clearance w eGFR > 60 Random Glucose 144 H Calcium 7.8 L Total Bilirubin 0.2 AST 34 ALT 24 Alkaline Phosphatase 65 D Total Protein 4.9 L Albumin 1.9 L Absolute CD3 Count 644 % CD3+ Lymphocytes 58.5 Absolute CD4 [place] 311 L % CD4+ Lymphocyte 28.3 L CD4/CD8 Ratio 0.94 % CD8+ Lymphocyte 30.2 Absolute CD8 Count 332 03/30/18 03/31/18 17:15 05:30 WBC 7.0 RBC 3.27 L Hgb 10.6 L Hct 32.1 L MCV 98.3 H MCH 32.6 MCHC 33.2 RDW 14.6 Plt Count 216 MPV 9.6 Absolute Neuts (auto) 6.2 Absolute Lymphs (auto) Neutrophils % 88.8 H Lymphocytes % 8.0 Monocytes % 3.2 L Eosinophils % 0.0 D Basophils % 0.0 Nucleated RBC % 0 Lymphocytes Nucleated RBCs Anticoagulation Therapy No Result Required. Puncture Site No Result Required. ABG pH 7.43 ABG pCO2 at Pt Temp 45.9 H ABG pO2 at Pt Temp 133.0 H D ABG HCO3 30.0 H ABG O2 Sat (Measured) 99.2 H ABG O2 Content 13.9 L ABG Base Excess 5.4 H Aureliano Test Positive O2 Delivery Device Mech vent Oxygen Flow Rate 80 Vent Mode Ac Vent Rate 18 Mechanical Rate Yes PEEP 15.0 Pressure Support Vent 320 Sodium Potassium Chloride Carbon Dioxide Anion Gap BUN Creatinine Creat Clearance w eGFR Random Glucose Calcium Total Bilirubin AST ALT Alkaline Phosphatase Total Protein Albumin Absolute CD3 Count % CD3+ Lymphocytes Absolute CD4 [place] % CD4+ Lymphocyte CD4/CD8 Ratio % CD8+ Lymphocyte Absolute CD8 Count Active Medications Generic Name Dose Route Start Last Admin Trade Name Freq PRN Reason Stop Dose Admin Acetaminophen 650 mg 03/29/18 19:51 03/30/18 09:14 Tylenol - PO 650 mg Q6H PRN Administration FEVER Albuterol Sulfate 1 amp 03/29/18 13:38 03/30/18 09:25 Ventolin 0.083% Nebulizer Soln - NEB 1 amp Q4H PRN Administration SHORT OF BREATH/WHEEZING Albuterol/Ipratropium 1 amp 03/30/18 12:00 03/30/18 20:55 Duoneb - NEB 1 amp RQID RAZ Administration Budesonide/Formoterol Fumarate 2 puff 03/29/18 22:00 03/31/18 00:57 Symbicort 160/4.5mcg - IH Not Given BID RAZ Chlorhexidine Gluconate 1 applic 03/30/18 22:00 03/30/18 22:00 Hibiclens For Decolonization - TP 1 applic HS RAZ Administration Emtricitabine/Tenofovir 1 tab 03/30/18 10:00 03/30/18 09:09 Truvada PO 1 tab DAILY RAZ Administration Etravirine 100 mg 03/29/18 18:30 03/30/18 21:24 Intelence - PO 100 mg BIDPC RAZ Administration Fluticasone Propionate 1 spray 03/30/18 10:00 03/30/18 12:08 Flonase - NS 1 spray DAILY RAZ Administration Gabapentin 250 mg 03/29/18 22:00 03/30/18 21:58 Neurontin Oral Liquid - PEG 250 mg BID RAZ Administration Heparin Sodium (Porcine) 5,000 unit 03/30/18 15:00 03/31/18 06:18 Heparin - SQ 5,000 unit TID RAZ Administration Piperacillin Sod/Tazobactam 50 mls @ 100 mls/hr 03/29/18 18:00 03/31/18 01:10 Sod 3.375 gm/ Dextrose IVPB 100 mls/hr Q8H-IV RAZ Administration Protocol Midazolam HCl 100 mg/ Sodium 100 mls @ 1 mls/hr 03/30/18 15:45 03/30/18 15:43 Chloride IVPB 03/31/18 15:44 2 mg/hr TITR RAZ 2 mls/hr Administration Protocol 1 MG/HR Melatonin 5 mg 03/29/18 23:57 03/30/18 00:08 Melatonin PO 5 mg HS PRN Administration INSOMNIA Methylprednisolone Sodium Succinate 40 mg 03/30/18 15:00 03/31/18 04:00 Solu-Medrol - IVPUSH 40 mg Q6H-IV RAZ Administration Mirtazapine 15 mg 03/29/18 22:00 03/30/18 21:30 Remeron - PEG 15 mg HS RAZ Administration Mupirocin 1 applic 03/30/18 22:00 03/30/18 21:25 Bactroban Ointment (For Decolonization) - NS 04/04/18 21:59 1 appful BID RAZ Administration Oxycodone HCl 5 mg 03/29/18 15:58 03/30/18 21:24 Roxicodone - PO 5 mg Q4H PRN Administration PAIN LEVEL 6-10 Raltegravir 400 mg 03/29/18 22:00 03/30/18 21:24 Isentress - NR 400 mg BID RAZ Administration Sertraline HCl 50 mg 03/30/18 10:00 03/30/18 09:03 Zoloft - PO 50 mg DAILY RAZ Administration ASSESSMENT/PLAN: Pt is a 47 yo F, with 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 1. Neuro Anxiety Pain control as needed. 2. Respiratory Changed pt from trach cuff to ventilator. Ventilator settings as above. Will continue weaning from FiO2, and PEEP has been reduced. Provided Versed drip for comfort. Providing sedation vacation today. Pt is fully alert and oriented. Continuing Ventolin and Symbicort. Reduced Solumedrol dose to Q8hr Chest x-ray today showed continued bi-basilar infiltrates, patchy infiltrates and fluid accumulation in R lung improved. Changed 3.375 g Zosyn to Cefazolin 2g Q8Hr per Dr. Kee. Cultures have shown Klebsiella pneumonia. Laryngeal CA - continue ventilation. Have explained to pt thoroughly the need for respiratory assistance with the ventilator, as pt has continued to attempt suction on her own. Have explained that her ventilation status is priority, and that we can assist her with comfort measures as needed. 3. GI Diarrhea - stool studies and urine Ag pending 4. Heme/Onc/ID HIV/AIDS - continue home HAART medication. CD3 644, CD4 311, CD8 332 Klebsiella pnx - ID on board. Changed to cefazolin as above. 5. Prophylaxis Heparin 500 u SQ TID, SCDs b/l 6. Nutrition Order placed for liquid diet. Continue PEG tube monitoring Problem List - Problems (1) Laryngeal carcinoma Code(s): C32.9 - MALIGNANT NEOPLASM OF LARYNX, UNSPECIFIED (2) Pneumonia Code(s): J18.9 - PNEUMONIA, UNSPECIFIED ORGANISM Qualifiers: Pneumonia type: due to unspecified organism Laterality: bilateral Lung location: unspecified part of lung Qualified Code(s): J18.9 - Pneumonia, unspecified organism (3) AIDS Code(s): B20 - HUMAN IMMUNODEFICIENCY VIRUS [HIV] DISEASE (4) Cough Code(s): R05 - COUGH (5) DVT prophylaxis Code(s): XAD8102 - Visit type - Emergency Visit Emergency Visit: Yes ED Registration Date: 03/28/18 Care time: The patient presented to the Emergency Department on the above date and was hospitalized for further evaluation of their emergent condition. - New Patient This patient is new to me today: No - Critical Care Critical Care patient: Yes Total Critical Care Time (in minutes): 40 Critical Care Statement: The care of this patient involved high complexity decision making to prevent further life threatening deterioration of the patient 's condition and/or to evaluate & treat vital organ system(s) failure or risk of failure. - Discharge Referral Referred to [facility] Med [facility] Yes
[2018-03-31] MEDS ORDERED: PIPERACILLIN/TAZOBACTAM 3.375 GM VIAL IVPB ONE (08:00)
[2018-03-31] MEDS ORDERED: PT OWN MED DRAWER 7, Y5N ONE ×3 (08:00→21:52)
[2018-03-31] MEDS ORDERED: DEXTROSE 5%-WATER - 50 ML IVPB ONE ×3 (08:01→18:01)
[2018-03-31] MEDS: ALBUTEROL SO4 2.5/IPRATROPIUM 0.5 INH SOL 3 ML VIAL.NEB. NEB SCH ×4 (08:20→20:19)
--- NOTE | 2018-03-31 08:33 | PN ---
Physical Exam: SUBJECTIVE: Patient seen and examined in the ICU. patient communicated with me by writing. wrote that she has home health aides at home and has strong family support for cares and ADLs. Expresses that she feels better and that her breathing has improved. Briefly told me her life story and all the support that she has and how she is grateful that she feels better today. OBJECTIVE: Vital Signs Period Temp Pulse Resp BP Sys/Lisa Pulse Ox Last 24 Hr 98.4 F-99.2 F 80-117 16-27 79-135/56-91 0-86 GENERAL: The patient is awake, alert, and fully oriented, in no acute distress. HEAD: Normal with no signs of trauma, on ventilator via trach EYES: PERRL, extraocular movements intact, sclera anicteric, conjunctiva clear. No ptosis. ENT: Ears normal, nares patent, oropharynx clear without exudates NECK: Trachea midline, full range of motion, supple. LUNGS: right lung diminished, left lung clear, no wheezing HEART: Regular rate and rhythm 90s on cafeteria monitor ABDOMEN: Soft, nontender, nondistended. NEUROLOGICAL: expresses her self via writing PSYCH: Normal mood, normal affect. SKIN: Warm, dry, normal turgor, no rashes or lesions noted Laboratory Results - last 24 hr 03/28/18 03/30/18 03/30/18 19:46 07:30 07:30 WBC 8.5 8.2 RBC 3.12 L Hgb 10.4 L Hct 30.9 L MCV 99.0 H MCH 33.3 MCHC 33.6 RDW 14.4 Plt Count 204 MPV 9.5 Absolute Neuts (auto) 7.1 Absolute Lymphs (auto) 1.1 Neutrophils % 86.5 H Lymphocytes % 7.6 L D Monocytes % 5.5 D Eosinophils % 0.3 Basophils % 0.1 Nucleated RBC % 0 Lymphocytes 13 Nucleated RBCs TNP Anticoagulation Therapy Puncture Site ABG pH ABG pCO2 at Pt Temp ABG pO2 at Pt Temp ABG HCO3 ABG O2 Sat (Measured) ABG O2 Content ABG Base Excess Aureliano Test O2 Delivery Device Oxygen Flow Rate Vent Mode Vent Rate Mechanical Rate PEEP Pressure Support Vent Sodium 141 Potassium 3.2 L Chloride 104 Carbon Dioxide 30 Anion Gap 7 L BUN 11 Creatinine 0.4 L Creat Clearance w eGFR > 60 Random Glucose 144 H Calcium 7.8 L Phosphorus Magnesium Total Bilirubin 0.2 AST 34 ALT 24 Alkaline Phosphatase 65 D Total Protein 4.9 L Albumin 1.9 L Absolute CD3 Count 644 % CD3+ Lymphocytes 58.5 Absolute CD4 [place] 311 L % CD4+ Lymphocyte 28.3 L CD4/CD8 Ratio 0.94 % CD8+ Lymphocyte 30.2 Absolute CD8 Count 332 03/30/18 03/31/18 03/31/18 17:15 05:30 05:30 WBC 7.0 RBC 3.27 L Hgb 10.6 L Hct 32.1 L MCV 98.3 H MCH 32.6 MCHC 33.2 RDW 14.6 Plt Count 216 MPV 9.6 Absolute Neuts (auto) 6.2 Absolute Lymphs (auto) Neutrophils % 88.8 H Lymphocytes % 8.0 Monocytes % 3.2 L Eosinophils % 0.0 D Basophils % 0.0 Nucleated RBC % 0 Lymphocytes Nucleated RBCs Anticoagulation Therapy No Result Required. Puncture Site No Result Required. ABG pH 7.43 ABG pCO2 at Pt Temp 45.9 H ABG pO2 at Pt Temp 133.0 H D ABG HCO3 30.0 H ABG O2 Sat (Measured) 99.2 H ABG O2 Content 13.9 L ABG Base Excess 5.4 H Aureliano Test Positive O2 Delivery Device Mech vent Oxygen Flow Rate 80 Vent Mode Ac Vent Rate 18 Mechanical Rate Yes PEEP 15.0 Pressure Support Vent 320 Sodium 142 Potassium 3.9 Chloride 103 Carbon Dioxide 32 Anion Gap 7 L BUN 15 Creatinine 0.3 L Creat Clearance w eGFR > 60 Random Glucose 125 H Calcium 8.4 L Phosphorus 3.0 Magnesium 2.0 Total Bilirubin 0.3 AST 31 ALT 25 Alkaline Phosphatase 75 D Total Protein 5.3 L Albumin 2.1 L Absolute CD3 Count % CD3+ Lymphocytes Absolute CD4 [place] % CD4+ Lymphocyte CD4/CD8 Ratio % CD8+ Lymphocyte Absolute CD8 Count Active Medications Generic Name Dose Route Start Last Admin Trade Name Freq PRN Reason Stop Dose Admin Acetaminophen 650 mg 03/29/18 19:51 03/30/18 09:14 Tylenol - PO 650 mg Q6H PRN Administration FEVER Albuterol Sulfate 1 amp 03/29/18 13:38 03/30/18 09:25 Ventolin 0.083% Nebulizer Soln - NEB 1 amp Q4H PRN Administration SHORT OF BREATH/WHEEZING Albuterol/Ipratropium 1 amp 03/30/18 12:00 03/30/18 20:55 Duoneb - NEB 1 amp RQID RAZ Administration Budesonide/Formoterol Fumarate 2 puff 03/29/18 22:00 03/31/18 00:57 Symbicort 160/4.5mcg - IH Not Given BID RAZ Chlorhexidine Gluconate 1 applic 03/30/18 22:00 03/30/18 22:00 Hibiclens For Decolonization - TP 1 applic HS RAZ Administration Emtricitabine/Tenofovir 1 tab 03/30/18 10:00 03/30/18 09:09 Truvada PO 1 tab DAILY RAZ Administration Etravirine 100 mg 03/29/18 18:30 03/30/18 21:24 Intelence - PO 100 mg BIDPC RAZ Administration Fluticasone Propionate 1 spray 03/30/18 10:00 03/30/18 12:08 Flonase - NS 1 spray DAILY RAZ Administration Gabapentin 250 mg 03/29/18 22:00 03/30/18 21:58 Neurontin Oral Liquid - PEG 250 mg BID RAZ Administration Heparin Sodium (Porcine) 5,000 unit 03/30/18 15:00 03/31/18 06:18 Heparin - SQ 5,000 unit TID RAZ Administration Piperacillin Sod/Tazobactam 50 mls @ 100 mls/hr 03/29/18 18:00 03/31/18 01:10 Sod 3.375 gm/ Dextrose IVPB 100 mls/hr Q8H-IV RAZ Administration Protocol Midazolam HCl 100 mg/ Sodium 100 mls @ 1 mls/hr 03/30/18 15:45 03/31/18 07:50 Chloride IVPB 03/31/18 15:44 2 mg/hr TITR RAZ 2 mls/hr Titration Protocol 1 MG/HR Melatonin 5 mg 03/29/18 23:57 03/30/18 00:08 Melatonin PO 5 mg HS PRN Administration INSOMNIA Methylprednisolone Sodium Succinate 40 mg 03/30/18 15:00 03/31/18 04:00 Solu-Medrol - IVPUSH 40 mg Q6H-IV RAZ Administration Mirtazapine 15 mg 03/29/18 22:00 03/30/18 21:30 Remeron - PEG 15 mg HS RAZ Administration Mupirocin 1 applic 03/30/18 22:00 03/30/18 21:25 Bactroban Ointment (For Decolonization) - NS 04/04/18 21:59 1 appful BID RAZ Administration Oxycodone HCl 5 mg 03/29/18 15:58 03/30/18 21:24 Roxicodone - PO 5 mg Q4H PRN Administration PAIN LEVEL 6-10 Raltegravir 400 mg 03/29/18 22:00 03/30/18 21:24 Isentress - NR 400 mg BID RAZ Administration Sertraline HCl 50 mg 03/30/18 10:00 03/30/18 09:03 Zoloft - PO 50 mg DAILY RAZ Administration ASSESSMENT/PLAN: Patient is a 47 year old female with a significant past medical history of HIV, laryngeal cancer, chronic trach, PEG tube, hepatitis B and failure to thrive. Patient presented to the ED with symptoms of nausea, vomiting, diarrhea, cough and fever. ID: Gram negative sepsis in the setting of HIV and laryngeal cancer: Pneumonia and + blood cultures (klebsiella): Chronic trach/shortness of breath/Asthma/COPD: Blood cultures 03/28 +kleb, repeat blood cultures negative to date. On Zosyn. Continue ventilator support, wean off from fio2 as tolerated, peep @ 10. On versed drip to promote comfort. Pneumonia/COPD exacerbation, labored breathing treated with systemic steriods. Further airway support with duonebs, symbicort and allbuterol. Chest xray shows bibasilar infiltrates, patchy inf. and improvement of right lung. Monitor airway to maintain stable oxygen levels of >92%. Onc: Laryngeal carcinoma, has chronic trach and feeds via peg tube. on ventilator support. HIV: Continue home antiviral therapy. Neuro Anxiety history. On versed for comfort while on ventilator. . GI Diarrhea: stool studies and urine Ag pending prophy: Heparin TID requires icu monitoring. Visit type - Emergency Visit Emergency Visit: Yes ED Registration Date: 03/28/18 Care time: The patient presented to the Emergency Department on the above date and was hospitalized for further evaluation of their emergent condition. - New Patient This patient is new to me today: Yes Date on this admission: 04/01/18 - Critical Care Critical Care patient: Yes Total Critical Care Time (in minutes): 30 Critical Care Statement: The care of this patient involved high complexity decision making to prevent further life threatening deterioration of the patient 's condition and/or to evaluate & treat vital organ system(s) failure or risk of failure.
[2018-03-31] MEDS: SERTRALINE HCL 50 MG TABLET (FP) PO SCH (09:45)
[2018-03-31] MEDS: oxyCODONE HCL 5 MG TABLET PO PRN (09:49)
[2018-03-31] MEDS: ACETAMINOPHEN 325 MG TABLET (FP) PO PRN (09:50)
[2018-03-31] MEDS: EMTRICITABINE 200MG/TENOFOVIR 300MG PO SCH (09:51)
[2018-03-31] MEDS: RALTEGRAVIR POTASSIUM 400 MG TAB NR SCH ×2 (09:51→22:15)
[2018-03-31] MEDS: MUPIROCIN 2% TOPICAL OINTMENT FOR DECOLONIZATION NS SCH ×2 (09:51→21:45)
[2018-03-31] MEDS: ETRAVIRINE 100 MG TABLET PO SCH ×2 (09:51→18:23)
--- NOTE | 2018-03-31 11:09 | PN ---
Progress Note, Physician History of Present Illness: Awake, alert Breathing non-labored Temps down Afebrile WBC 7.0 BC Klebsiella - Current Medication List Current Medications: Active Medications Acetaminophen (Tylenol -) 650 mg PO Q6H PRN PRN Reason: FEVER Last Admin: 03/31/18 09:50 Dose: 650 mg Albuterol Sulfate (Ventolin 0.083% Nebulizer Soln -) 1 amp NEB Q4H PRN PRN Reason: SHORT OF BREATH/WHEEZING Last Admin: 03/30/18 09:25 Dose: 1 amp Albuterol/Ipratropium (Duoneb -) 1 amp NEB RQID RAZ Last Admin: 03/31/18 08:20 Dose: 1 amp Budesonide/Formoterol Fumarate (Symbicort 160/4.5mcg -) 2 puff IH BID [facility] Last Admin: 03/31/18 00:57 Dose: Not Given Chlorhexidine Gluconate (Hibiclens For Decolonization -) 1 applic TP HS [facility] Last Admin: 03/30/18 22:00 Dose: 1 applic Emtricitabine/Tenofovir (Truvada) 1 tab PO DAILY [facility] Last Admin: 03/31/18 09:51 Dose: 1 tab Etravirine (Intelence -) 100 mg PO BIDPC [facility] Last Admin: 03/31/18 09:51 Dose: 100 mg Fluticasone Propionate (Flonase -) 1 spray NS DAILY [facility] Last Admin: 03/30/18 12:08 Dose: 1 spray Gabapentin (Neurontin Oral Liquid -) 250 mg PEG BID [facility] Last Admin: 03/30/18 21:58 Dose: 250 mg Heparin Sodium (Porcine) (Heparin -) 5,000 unit SQ TID RAZ Last Admin: 03/31/18 06:18 Dose: 5,000 unit Piperacillin Sod/Tazobactam (Sod 3.375 gm/ Dextrose) 50 mls @ 100 mls/hr IVPB Q8H-IV RAZ; Protocol Last Admin: 03/31/18 09:41 Dose: 100 mls/hr Midazolam HCl 100 mg/ Sodium (Chloride) 100 mls @ 1 mls/hr IVPB TITR RAZ; Protocol Stop: 03/31/18 15:44 Last Titration: 03/31/18 07:50 Dose: 2 mg/hr, 2 mls/hr Melatonin (Melatonin) 5 mg PO HS PRN PRN Reason: INSOMNIA Last Admin: 03/30/18 00:08 Dose: 5 mg Methylprednisolone Sodium Succinate (Solu-Medrol -) 40 mg IVPUSH Q6H-IV [facility] Last Admin: 03/31/18 09:51 Dose: 40 mg Mirtazapine (Remeron -) 15 mg PEG HS [facility] Last Admin: 03/30/18 21:30 Dose: 15 mg Mupirocin (Bactroban Ointment (For Decolonization) -) 1 applic NS BID [facility] Stop: 04/04/18 21:59 Last Admin: 03/31/18 09:51 Dose: 1 appful Oxycodone HCl (Roxicodone -) 5 mg PO Q4H PRN PRN Reason: PAIN LEVEL 6-10 Last Admin: 03/31/18 09:49 Dose: 5 mg Raltegravir (Isentress -) 400 mg NR BID [facility] Last Admin: 03/31/18 09:51 Dose: 400 mg Sertraline HCl (Zoloft -) 50 mg PO DAILY [facility] Last Admin: 03/30/18 09:03 Dose: 50 mg - Objective Vital Signs: Vital Signs Temperature 98.4 F 03/31/18 02:00 Pulse Rate 80 03/31/18 06:00 Respiratory Rate 29 H 03/31/18 09:33 Blood Pressure 94/73 03/31/18 06:00 O2 Sat by Pulse Oximetry (%) 0 L 03/30/18 21:00 Constitutional: Yes: No Distress, Cachectic Cardiovascular: Yes: Regular Rate and Rhythm, S1, S2 Respiratory: Yes: Mechanically Ventilated Gastrointestinal: Yes: Normal Bowel Sounds, Soft. No: Tenderness Edema: No Labs: CBC, BMP 03/31/18 05:30 03/31/18 05:30 INR, PTT INR 1.22 (0.83-1.09) H 03/28/18 12:35 Assessment/Plan Bilateral Pneumonia Respiratory failure Klebsiella bacteremia AIDS Substitute cefazolin 2gm q8h
[2018-03-31] MEDS: FLUTICASONE PROP 0.05% 16 GM NASAL SPRAY NS SCH (11:38)
[2018-03-31] MEDS: GABAPENTIN 250 MG/5 ML ORAL SOLUTION, 470 ML BOTTLE PEG SCH ×2 (11:39→21:49)
--- NOTE | 2018-03-31 13:02 | PN ---
Teaching Attending Note Name of Resident: Maria Luz Castrejon ATTENDING PHYSICIAN STATEMENT I saw and evaluated the patient. I reviewed the resident's note and discussed the case with the resident. I agree with the resident's findings and plan as documented. SUBJECTIVE: Pt seen and examined in the ICU. Remains vented. Oxygen requirements improving. Now on 60% FiO2, PEEP 10. OBJECTIVE: Vital Signs Period Temp Pulse Resp BP Sys/Lisa Pulse Ox Last 24 Hr 98.4 F-99.0 F 80-117 16-29 79-135/56-91 0 Intake & Output 03/28/18 03/29/18 03/30/18 03/31/18 23:59 23:59 23:59 23:59 Intake Total 1100 2213 1520 Output Total 350 1150 200 400 Balance 750 1063 1320 -400 Weight 45.3 kg 50.802 kg Gen: vented, awake Heart: RRR Lung: scattered rales Abd: soft, nontender Ext: no edema CBC, BMP 03/31/18 05:30 03/31/18 05:30 Active Medications Acetaminophen (Tylenol -) 650 mg PO Q6H PRN PRN Reason: FEVER Last Admin: 03/31/18 09:50 Dose: 650 mg Albuterol Sulfate (Ventolin 0.083% Nebulizer Soln -) 1 amp NEB Q4H PRN PRN Reason: SHORT OF BREATH/WHEEZING Last Admin: 03/30/18 09:25 Dose: 1 amp Albuterol/Ipratropium (Duoneb -) 1 amp NEB RQID [facility] Last Admin: 03/31/18 12:04 Dose: 1 amp Budesonide/Formoterol Fumarate (Symbicort 160/4.5mcg -) 2 puff IH BID [facility] Last Admin: 03/31/18 11:38 Dose: Not Given Chlorhexidine Gluconate (Hibiclens For Decolonization -) 1 applic TP HS [facility] Last Admin: 03/30/18 22:00 Dose: 1 applic Emtricitabine/Tenofovir (Truvada) 1 tab PO DAILY [facility] Last Admin: 03/31/18 09:51 Dose: 1 tab Etravirine (Intelence -) 100 mg PO BIDPC [facility] Last Admin: 03/31/18 09:51 Dose: 100 mg Fluticasone Propionate (Flonase -) 1 spray NS DAILY [facility] Last Admin: 03/31/18 11:38 Dose: 1 spray Gabapentin (Neurontin Oral Liquid -) 250 mg PEG BID [facility] Last Admin: 03/31/18 11:39 Dose: 250 mg Heparin Sodium (Porcine) (Heparin -) 5,000 unit SQ TID [facility] Last Admin: 03/31/18 06:18 Dose: 5,000 unit Midazolam HCl 100 mg/ Sodium (Chloride) 100 mls @ 1 mls/hr IVPB TITR [facility]; Protocol Stop: 03/31/18 15:44 Last Titration: 03/31/18 07:50 Dose: 2 mg/hr, 2 mls/hr Cefazolin Sodium 1 gm/ (Dextrose) 50 mls @ 100 mls/hr IVPB Q8H-IV [facility] Melatonin (Melatonin) 5 mg PO HS PRN PRN Reason: INSOMNIA Last Admin: 03/30/18 00:08 Dose: 5 mg Methylprednisolone Sodium Succinate (Solu-Medrol -) 40 mg IVPUSH Q8H-IV [facility] Mirtazapine (Remeron -) 15 mg PEG HS [facility] Last Admin: 03/30/18 21:30 Dose: 15 mg Mupirocin (Bactroban Ointment (For Decolonization) -) 1 applic NS BID [facility] Stop: 04/04/18 21:59 Last Admin: 03/31/18 09:51 Dose: 1 appful Oxycodone HCl (Roxicodone -) 5 mg PO Q4H PRN PRN Reason: PAIN LEVEL 6-10 Last Admin: 03/31/18 09:49 Dose: 5 mg Raltegravir (Isentress -) 400 mg NR BID [facility] Last Admin: 03/31/18 09:51 Dose: 400 mg Sertraline HCl (Zoloft -) 50 mg PO DAILY [facility] Last Admin: 03/30/18 09:03 Dose: 50 mg ASSESSMENT AND PLAN: Acute on Chronic Hypoxic Respiratory Failure Pneumonia ARDS Klebsiella Bacteremia Sepsis HIV/AIDS h/o Laryngeal Ca s/p trach/PEG - continue antibiotics per ID - empiric medrol - inhaled bronchodilators - pain control - chest PT/bed percussion - inhaled bronchodilators - taper FiO2, PEEP to keep SpO2 >90% - continue ART - DVT prophylaxis critical care time spent in reviewing chart, evaluating patient and formulating plan 35 min
[2018-03-31] MEDS ORDERED: ceFAZolin SODIUM 1 GM VIAL ONE ×2 (14:30→18:01)
[2018-03-31] MEDS: CEFAZOLIN 1 GM in DEXTROSE 5%-WATER - 50 ML IVPB SCH ×2 (15:42→18:06)
[2018-03-31] MEDS ORDERED: MIDAZOLAM 100 MG in SODIUM CHLORIDE 100 ML IVPB SCH (18:00)
[2018-03-31] MEDS: MIRTAZAPINE 15 MG TABLET (FP) PEG SCH (21:50)
[2018-03-31] MEDS: MELATONIN 5 MG TABLETS PO PRN (21:50)
[2018-03-31] MEDS: CHLORHEXIDINE GLUCONATE 4% CLEANSER FOR DECOLONIZATION TP SCH (21:53)
[2018-04-01] MEDS ORDERED: DEXTROSE 5%-WATER - 50 ML IVPB ONE ×3 (01:38→17:31)
[2018-04-01] MEDS ORDERED: ceFAZolin SODIUM 1 GM VIAL ONE ×3 (01:38→17:31)
[2018-04-01] MEDS: CEFAZOLIN 1 GM in DEXTROSE 5%-WATER - 50 ML IVPB SCH ×3 (01:45→17:42)
[2018-04-01] MEDS: methylPREDNISolone NA SUCC 40 MG/1 ML VIAL IVPUSH SCH ×2 (01:50→09:45)
[2018-04-01 06:33] LABS: BASO % 0.1 % (0-2.0); HEMATOCRIT 29.1 % (32.4-45.2); HEMOGLOBIN 9.7 GM/dL (10.7-15.3); LYMPH % 5.8 % (8-40); MCH 32.9 pg (25.7-33.7); MCHC 33.4 g/dl (32.0-36.0); MEAN CELL VOLUME 98.6 fl (80-96); MEAN PLT VOLUME 9.7 fl (7.5-11.1); MONO % 3.9 % (3.8-10.2); NEUT % 90.2 % (42.8-82.8); PLATELET COUNT 231 K/MM3 (134-434); RBC 2.95 M/mm3 (3.60-5.2); RDW 14.6 % (11.6-15.6); WHITE BLOOD COUNT 9.7 K/mm3 (4.0-10.0)
[2018-04-01 06:50] LABS: ALBUMIN 1.8 g/dl (3.4-5.0); ANION GAP 3 MMOL/L (8-16); BLOOD UREA NITROGEN 25 mg/dL (7-18); CHLORIDE 105 mmol/L (98-107); CO2 34 mmol/L (21-32); GLUCOSE,RANDOM 115 mg/dL (74-106); MAGNESIUM 2.3 mg/dL (1.8-2.4); POTASSIUM 3.8 mmol/L (3.5-5.1); SODIUM 142 mmol/L (136-145)
[2018-04-01 06:54] LABS: ALK PHOS 69 U/L (45-117); BILIRUBIN,TOTAL 0.1 mg/dL (0.2-1.0); CREATININE 0.2 mg/dL (0.55-1.02); SGOT/AST 34 U/L (15-37); SGPT/ALT 29 U/L (12-78)
[2018-04-01] MEDS: HEPARIN NA (PORCINE) 5,000 UNITS/ML 1ML VIAL SQ SCH ×3 (07:03→21:35)
--- NOTE | 2018-04-01 07:21 | PN ---
Physical Exam: SUBJECTIVE: Patient seen and examined this morning. Pt was sedated with Versed ( up to 5 mg/hr) due to continued anxiety and agitation with the ventilator and with staff members. Pt vitals have been stable and she is afebrile. She has had normal BM and urination. The team has continued to explain the need for ventilation until she is weaned, and respiratory team has come every 1-3 hours to provide treatments and support. Today's Vent Settings: RR 14, PEEP 8, FiO2 40%, TV 320 (pt tolerating well 95-99 %, despite anxiety). OBJECTIVE: Vital Signs Period Temp Pulse Resp BP Sys/Lisa Pulse Ox Last 24 Hr 98 F 88-114 18-29 99-138/73-89 0-95 GENERAL: The patient is awake, alert, and fully oriented, in no acute distress. HEAD: Normal with no signs of trauma. EYES: PERRL, extraocular movements intact, sclera anicteric, conjunctiva clear. No ptosis. ENT: Nares patent, oropharynx clear without exudates, moist mucous membranes. Yellow/brown sputum production from trach site. NECK: Trachea midline, full range of motion, supple. LUNGS: Breath sounds equal, coarse over R lung base (improved from yesterday), no wheezes, no crackles, no accessory muscle use. HEART: Regular rate and rhythm, S1, S2 without murmur, rub or gallop. ABDOMEN: Soft, nontender, nondistended, normoactive bowel sounds, no guarding, no rebound, no hepatosplenomegaly, no masses. EXTREMITIES: 2+ pulses, warm, well-perfused, no edema. NEUROLOGICAL: Cranial nerves II through XII grossly intact. Normal speech, gait not observed. PSYCH: Pt emotional and becomes easily upset due to tasks that she now can't perform with the ventilator (brushing teeth, suctioning). SKIN: Warm, dry, normal turgor, no rashes or lesions noted. Laboratory Results - last 24 hr 03/29/18 04/01/18 04/01/18 05:30 05:30 05:30 WBC 9.7 RBC 2.95 L Hgb 9.7 L Hct 29.1 L MCV 98.6 H MCH 32.9 MCHC 33.4 RDW 14.6 Plt Count 231 MPV 9.7 Absolute Neuts (auto) 8.7 H Neutrophils % 90.2 H Lymphocytes % 5.8 L D Monocytes % 3.9 Eosinophils % 0.0 Basophils % 0.1 D Nucleated RBC % 0 Sodium 142 Potassium 3.8 Chloride 105 Carbon Dioxide 34 H Anion Gap 3 L BUN 25 H Creatinine 0.2 L Creat Clearance w eGFR > 60 Random Glucose 115 H Calcium 8.0 L Phosphorus 3.0 Magnesium 2.3 Total Bilirubin 0.1 L AST 34 ALT 29 Alkaline Phosphatase 69 Total Protein 5.0 L Albumin 1.8 L HIV-1 RNA Quant <20 HIV-1 RNA (PCR) log10 TNP Active Medications Generic Name Dose Route Start Last Admin Trade Name Freq PRN Reason Stop Dose Admin Acetaminophen 650 mg 03/29/18 19:51 03/31/18 09:50 Tylenol - PO 650 mg Q6H PRN Administration FEVER Albuterol Sulfate 1 amp 03/29/18 13:38 03/30/18 09:25 Ventolin 0.083% Nebulizer Soln - NEB 1 amp Q4H PRN Administration SHORT OF BREATH/WHEEZING Albuterol/Ipratropium 1 amp 03/30/18 12:00 03/31/18 20:19 Duoneb - NEB 1 amp RQID RAZ Administration Budesonide/Formoterol Fumarate 2 puff 03/29/18 22:00 03/31/18 21:50 Symbicort 160/4.5mcg - IH Not Given BID RAZ Chlorhexidine Gluconate 1 applic 03/30/18 22:00 03/31/18 21:53 Hibiclens For Decolonization - TP 1 applic HS RAZ Administration Emtricitabine/Tenofovir 1 tab 03/30/18 10:00 03/31/18 09:51 Truvada PO 1 tab DAILY RAZ Administration Etravirine 100 mg 03/29/18 18:30 03/31/18 18:23 Intelence - PO 100 mg BIDPC RAZ Administration Fluticasone Propionate 1 spray 03/30/18 10:00 03/31/18 11:38 Flonase - NS 1 spray DAILY RAZ Administration Gabapentin 250 mg 03/29/18 22:00 03/31/18 21:49 Neurontin Oral Liquid - PEG 250 mg BID RAZ Administration Heparin Sodium (Porcine) 5,000 unit 03/30/18 15:00 04/01/18 07:03 Heparin - SQ 5,000 unit TID RAZ Administration Cefazolin Sodium 1 gm/ 50 mls @ 100 mls/hr 03/31/18 11:15 04/01/18 01:45 Dextrose IVPB 100 mls/hr Q8H-IV RAZ Administration Midazolam HCl 100 mg/ Sodium 100 mls @ 3 mls/hr 03/31/18 18:00 03/31/18 19:30 Chloride IVPB 3 mg/hr TITR RAZ 3 mls/hr Titration Protocol 3 MG/HR Melatonin 5 mg 03/29/18 23:57 03/31/18 21:50 Melatonin PO 5 mg HS PRN Administration INSOMNIA Methylprednisolone Sodium Succinate 40 mg 03/31/18 18:00 04/01/18 01:50 Solu-Medrol - IVPUSH 40 mg Q8H-IV RAZ Administration Mirtazapine 15 mg 03/29/18 22:00 03/31/18 21:50 Remeron - PEG 15 mg HS RAZ Administration Mupirocin 1 applic 03/30/18 22:00 03/31/18 21:45 Bactroban Ointment (For Decolonization) - NS 04/04/18 21:59 1 appful BID RAZ Administration Oxycodone HCl 5 mg 03/29/18 15:58 03/31/18 09:49 Roxicodone - PO 5 mg Q4H PRN Administration PAIN LEVEL 6-10 Raltegravir 400 mg 03/29/18 22:00 03/31/18 22:15 Isentress - NR 400 mg BID RAZ Administration Sertraline HCl 50 mg 03/30/18 10:00 03/31/18 09:45 Zoloft - PO 50 mg DAILY RAZ Administration ASSESSMENT/PLAN: Pt is a 47 yo F, with 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 1. Neuro Anxiety - 5 mg melatonin (insomnia) QHS, 100 mg midazolam Qday, 15 mg Mirtazapine Qday, 50 mg Zoloft Qday Pain control as needed. 2. Respiratory Changed pt from trach cuff to ventilator. Ventilator settings as above. Will continue weaning from FiO2, and PEEP has been reduced. Pt weaned onto CPAP RR 14, PEEP 5, FiO2 40% and TV 320 during rounds. Pt tolerated. Will remove vent. Respiratory called to change vent to trach collar. Weaned from Versed drip, will provide 0.25 mg PO klonopin once pt on trach collar and can tolerate PO. Provided Versed drip for comfort, weaning today and will switch to PO klonopin. Providing sedation vacation today. Pt is fully alert and oriented. Continuing Ventolin and Symbicort. Reduced Solumedrol dose to 40 Q8hr Chest x-ray today showed continued bi-basilar infiltrates; the patchy infiltrates and fluid accumulation in R lung has improved. Cefazolin 2g Q8Hr per Dr. Kee, Day 2. Changed from 3.375 g Zosyn. Cultures have shown Klebsiella pneumonia. Laryngeal CA - continue trach collar as tolerated. 3. GI Diarrhea - stool studies and urine Ag pending 4. Heme/Onc/ID HIV/AIDS - continue home HAART medication. CD3 644, CD4 311, CD8 332 Klebsiella pnx - ID on board. Changed to cefazolin as above. 5. Prophylaxis Heparin 500 u SQ TID, SCDs b/l 6. Nutrition Pt has been NPO. Can continue feeding once pt is back on trach collar for feeds/ meds. Continue PEG tube monitoring Disposition: transfer to med/surg once trach collar placed. Problem List - Problems (1) Laryngeal carcinoma Code(s): C32.9 - MALIGNANT NEOPLASM OF LARYNX, UNSPECIFIED (2) Pneumonia Code(s): J18.9 - PNEUMONIA, UNSPECIFIED ORGANISM Qualifiers: Pneumonia type: due to unspecified organism Laterality: bilateral Lung location: unspecified part of lung Qualified Code(s): J18.9 - Pneumonia, unspecified organism (3) AIDS Code(s): B20 - HUMAN IMMUNODEFICIENCY VIRUS [HIV] DISEASE (4) Cough Code(s): R05 - COUGH (5) DVT prophylaxis Code(s): [id number] - Visit type - Emergency Visit Emergency Visit: Yes ED Registration Date: 03/28/18 Care time: The patient presented to the Emergency Department on the above date and was hospitalized for further evaluation of their emergent condition. - New Patient This patient is new to me today: No - Critical Care Critical Care patient: Yes Total Critical Care Time (in minutes): 40 Critical Care Statement: The care of this patient involved high complexity decision making to prevent further life threatening deterioration of the patient 's condition and/or to evaluate & treat vital organ system(s) failure or risk of failure. - Discharge Referral Referred to [facility] Yes
[2018-04-01] MEDS: ALBUTEROL SO4 2.5/IPRATROPIUM 0.5 INH SOL 3 ML VIAL.NEB. NEB SCH ×4 (07:30→20:42)
[2018-04-01] MEDS ORDERED: PT OWN MED DRAWER 7, Y5N ONE ×3 (08:41→20:01)
--- NOTE | 2018-04-01 09:15 | PN ---
Physical Exam: SUBJECTIVE: Patient seen and examined at the bedside. States her breathing is improving. OBJECTIVE: clinically improving, episodes of anxiety and anger today, multiple complaints. emotional support provided. Vital Signs Period Temp Pulse Resp BP Sys/Lisa Pulse Ox Last 24 Hr 98 F 85-114 18-29 99-138/73-89 0-97 GENERAL: The patient is awake, alert, and fully oriented, in no acute distress. anxious HEAD: Normal with no signs of trauma, on ventilator via trach EYES: PERRL, extraocular movements intact, sclera anicteric, conjunctiva clear. No ptosis. ENT: Ears normal, nares patent, oropharynx clear without exudates NECK: Trachea midline, full range of motion, supple. LUNGS: +congestion on anterior lungs, no wheezing HEART: Regular rate and rhythm 90s on environmental monitoring technician ABDOMEN: Soft, nontender, nondistended. NEUROLOGICAL: expresses her self via writing PSYCH: anxious SKIN: Warm, dry, normal turgor, no rashes or lesions noted Laboratory Results - last 24 hr 03/29/18 04/01/18 04/01/18 05:30 05:30 05:30 WBC 9.7 RBC 2.95 L Hgb 9.7 L Hct 29.1 L MCV 98.6 H MCH 32.9 MCHC 33.4 RDW 14.6 Plt Count 231 MPV 9.7 Absolute Neuts (auto) 8.7 H Neutrophils % 90.2 H Lymphocytes % 5.8 L D Monocytes % 3.9 Eosinophils % 0.0 Basophils % 0.1 D Nucleated RBC % 0 Sodium 142 Potassium 3.8 Chloride 105 Carbon Dioxide 34 H Anion Gap 3 L BUN 25 H Creatinine 0.2 L Creat Clearance w eGFR > 60 Random Glucose 115 H Calcium 8.0 L Phosphorus 3.0 Magnesium 2.3 Total Bilirubin 0.1 L AST 34 ALT 29 Alkaline Phosphatase 69 Total Protein 5.0 L Albumin 1.8 L HIV-1 RNA Quant <20 HIV-1 RNA (PCR) log10 TNP Active Medications Generic Name Dose Route Start Last Admin Trade Name Freq PRN Reason Stop Dose Admin Acetaminophen 650 mg 03/29/18 19:51 03/31/18 09:50 Tylenol - PO 650 mg Q6H PRN Administration FEVER Albuterol Sulfate 1 amp 03/29/18 13:38 03/30/18 09:25 Ventolin 0.083% Nebulizer Soln - NEB 1 amp Q4H PRN Administration SHORT OF BREATH/WHEEZING Albuterol/Ipratropium 1 amp 03/30/18 12:00 04/01/18 07:30 Duoneb - NEB 1 amp RQID RAZ Administration Budesonide/Formoterol Fumarate 2 puff 03/29/18 22:00 03/31/18 21:50 Symbicort 160/4.5mcg - IH Not Given BID RAZ Chlorhexidine Gluconate 1 applic 03/30/18 22:00 03/31/18 21:53 Hibiclens For Decolonization - TP 1 applic HS RAZ Administration Emtricitabine/Tenofovir 1 tab 03/30/18 10:00 03/31/18 09:51 Truvada PO 1 tab DAILY RAZ Administration Etravirine 100 mg 03/29/18 18:30 03/31/18 18:23 Intelence - PO 100 mg BIDPC RAZ Administration Fluticasone Propionate 1 spray 03/30/18 10:00 03/31/18 11:38 Flonase - NS 1 spray DAILY RAZ Administration Gabapentin 250 mg 03/29/18 22:00 03/31/18 21:49 Neurontin Oral Liquid - PEG 250 mg BID RAZ Administration Heparin Sodium (Porcine) 5,000 unit 03/30/18 15:00 04/01/18 07:03 Heparin - SQ 5,000 unit TID RAZ Administration Cefazolin Sodium 1 gm/ 50 mls @ 100 mls/hr 03/31/18 11:15 04/01/18 01:45 Dextrose IVPB 100 mls/hr Q8H-IV RAZ Administration Midazolam HCl 100 mg/ Sodium 100 mls @ 3 mls/hr 03/31/18 18:00 03/31/18 19:30 Chloride IVPB 3 mg/hr TITR RAZ 3 mls/hr Titration Protocol 3 MG/HR Melatonin 5 mg 03/29/18 23:57 03/31/18 21:50 Melatonin PO 5 mg HS PRN Administration INSOMNIA Methylprednisolone Sodium Succinate 40 mg 03/31/18 18:00 04/01/18 01:50 Solu-Medrol - IVPUSH 40 mg Q8H-IV RAZ Administration Mirtazapine 15 mg 03/29/18 22:00 03/31/18 21:50 Remeron - PEG 15 mg HS RAZ Administration Mupirocin 1 applic 03/30/18 22:00 03/31/18 21:45 Bactroban Ointment (For Decolonization) - NS 04/04/18 21:59 1 appful BID RAZ Administration Oxycodone HCl 5 mg 03/29/18 15:58 03/31/18 09:49 Roxicodone - PO 5 mg Q4H PRN Administration PAIN LEVEL 6-10 Raltegravir 400 mg 03/29/18 22:00 03/31/18 22:15 Isentress - NR 400 mg BID RAZ Administration Sertraline HCl 50 mg 03/30/18 10:00 03/31/18 09:45 Zoloft - PO 50 mg DAILY RAZ Administration ASSESSMENT/PLAN: Patient is a 47 year old female with a significant past medical history of HIV, laryngeal cancer, chronic trach, PEG tube, hepatitis B and failure to thrive. Patient presented to the ED with symptoms of nausea, vomiting, diarrhea, cough and fever. ID: Gram negative sepsis in the setting of HIV and laryngeal cancer: Pneumonia and + blood cultures (klebsiella): Chronic trach/shortness of breath/Asthma/COPD: Blood cultures 03/28 +kleb, repeat blood cultures negative to date. On Cefazolin. Continue ventilator support, wean off from fio2 as tolerated, peep @ 8. On versed drip to promote comfort. Pneumonia/COPD exacerbation, labored breathing treated with systemic steriods. currently being tapered off. Further airway support with duonebs, symbicort and allbuterol. Chest xray shows bibasilar infiltrates, patchy inf. and improvement of right lung. Monitor airway to maintain stable oxygen levels of >92%. Onc: Laryngeal carcinoma, has chronic trach and feeds via peg tube. on ventilator support. Needs MBS to evaluate swallowing function. HIV: Continue home antiviral therapy. Neuro Anxiety history. On versed for comfort while on ventilator. Monitor for increased anxiety. GI Diarrhea: stool studies uncollected. prophy: Heparin TID swallow evaluation, will need MBS requires icu monitoring. Visit type - Emergency Visit Emergency Visit: Yes ED Registration Date: 03/28/18 Care time: The patient presented to the Emergency Department on the above date and was hospitalized for further evaluation of their emergent condition. - New Patient This patient is new to me today: No - Critical Care Critical Care patient: Yes Total Critical Care Time (in minutes): 45 Critical Care Statement: The care of this patient involved high complexity decision making to prevent further life threatening deterioration of the patient 's condition and/or to evaluate & treat vital organ system(s) failure or risk of failure.
[2018-04-01] MEDS: ETRAVIRINE 100 MG TABLET PO SCH ×2 (09:39→17:37)
[2018-04-01] MEDS: RALTEGRAVIR POTASSIUM 400 MG TAB NR SCH ×2 (09:44→21:39)
[2018-04-01] MEDS: EMTRICITABINE 200MG/TENOFOVIR 300MG PO SCH (09:45)
[2018-04-01] MEDS: SERTRALINE HCL 50 MG TABLET (FP) PO SCH (09:46)
[2018-04-01] MEDS: BUDESONIDE/FORMETEROL FUMARATE 160/4.5 mcg INHALER IH SCH (09:46)
[2018-04-01] MEDS: FLUTICASONE PROP 0.05% 16 GM NASAL SPRAY NS SCH (09:48)
[2018-04-01] MEDS: GABAPENTIN 250 MG/5 ML ORAL SOLUTION, 470 ML BOTTLE PEG SCH ×2 (09:49→21:38)
[2018-04-01] MEDS: MUPIROCIN 2% TOPICAL OINTMENT FOR DECOLONIZATION NS SCH ×2 (10:16→21:39)
[2018-04-01] MEDS ORDERED: clonazePAM 0.5 MG TABLET PO ONE (12:00)
--- NOTE | 2018-04-01 12:26 | CONSULT ---
Admitting History and Physical - Primary Care Physician PCP: Renee Parr - Admission History of Present Illness: This is a 47 year old female with PMHx of HIV/AIDS, laryngeal carcinoma s/p trach (2015) and PEG (2013), HBV, failure to thrive, who presented to the ED with nausea, vomiting, diarrhea, cough, fever since . The patient reports that she noted having a 103 fever at home. She also reports right sided intermittent chest pain that began about 4 days ago and has worsened. She reports it is sharp in nature, and that it is worse with deep inspiration. She also states that over the past 4 days she has noticed increase in yellowish sputum via her trach site. She denies any chills, headache, dizziness, urinary symptoms, lower extremity swelling, difficulty with peg feeding. ER course was notable for: (1) Temp 101.4, pulse 121, BP 98/71, resp 28, O2 84% on RA (2) WBC 13.9 (3) Chest X-ray with progressive bibasilar infiltrates with right fluid and right base atelectasis. The mediastinum is not widened Known to me since 2014. Emaciated/severe Dysphagia, PEG rec at that time. Several reassessments/4 MBS. Last MBS 07/2017 with stasis with multiple swallows needed to clear puree and trace aspiration on puree.Silent aspiration on thick liquid. REC: most nutrition via PEG. A little puree using compensatory strategies. No PO liquid thick or thin. Swallowing tx rec at [facility]. Reviewed case with Speech Pathology at [facility]. Pt followed up with swallowing tx at [facility]. Per MBS 09/18/17, there was aspiration on thin liquid with head in neutral, eliminated with head rotation to either side. She was able to tolerate nectar,puree and soft solids, less than 1 tsp in size, with repetitive,hard swallows and liquid washdown. Per pt and her , she has been eating solids, often chewing and then spitting back out, and thin coffee. She denies recurrent bronchitis/PNA. However , food/liquid did come out of the trach at times (c/w aspiration). Pt she feels when she vomited, she aspirated. History Source: Patient, Family Member, Medical Record Limitations to Obtaining History: Other (trach) - Past Medical History Pulmonary: Yes: Asthma, Cancer (laryngeal), COPD, Other (vocal cord mass) Hepatobiliary: Yes: Hepatitis B ...LMP: 05/14/12 Heme/Onc: Yes: Cancer (Laryngeal) Infectious Disease: Yes: AIDS, HIV ENT: Yes: Other (trach in place) - Smoking History Smoking history: Current every day smoker Have you smoked in the past 12 months: Yes Aproximately how many cigarettes per day: 20 If you are a former smoker, when did you quit?: 2016 - Alcohol/Substance Use Hx Alcohol Use: No History of Substance Use: reports: None - Social History ADL: Independent History of Recent Travel: No History - Admission Reason For Visit: CHEST PAIN/PNEUMONIA - Diagnostics X-ray: Report Reviewed - General Mental Status: Alert and Oriented, Awake and Alert, Able to Follow Commands Attention: Intact Ability to Follow Directions: Excellent Head/Neck Control: WFL - Hearing Hearing: Functional Speech Evaluation - Communication Primary Language: MALAY Oral Expression Ability: Yes: Non-Vocal (Trach. Unable to use Provox at this time.) - Speech Production Apraxia: No - Speech Characteristics Articulation: Yes: Precise - Language/Auditory Comprehension Observation: Comprehends Conversational Speech: Yes - Language/Verbal Expression Able to Communicate Wants and Needs: Yes: WNL (mouthing words or writing) - Memory/Perception intermediate Memory: Yes: WNL Short Term Memory: Yes: WNL - Swallow Evaluation/Bedside Assessment Current Nutritional Intake: NPO, G Tube Dentition: Yes: Adequate Facial Symmetry at Rest: Symmetrical Facial Symmetry on Retraction: Symmetrical A-P Transit: WFL Recommendations - Speech Evaluation, Impression/Plan Impression: Pt extubated. Trach collar. h/o aspiration. Needs MBS to objectively evaluate swallowing function. No po trials given. - Dysphagia Impressions/Plan Swallowing Skills: Impaired Dysphagia Impressions: Ongoing Evaluation, Suspect Aspiration *Silent aspiration: cannot be R/O at bedside Recommendations: Modified Barium Swallow (once trach changed and pt can tolerate Provox speaking valve.) - Recommendations Diet Consistency: NPO, Other (GT feedings. Remain upright during and after TF) Liquids: NPO
--- NOTE | 2018-04-01 12:28 | CONSULT ---
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 - Past Medical History Pulmonary: Yes: Asthma, Cancer (laryngeal), COPD, Other (vocal cord mass) Hepatobiliary: Yes: Hepatitis B ...LMP: 05/14/12 Heme/Onc: Yes: Cancer (Laryngeal) Infectious Disease: Yes: AIDS, HIV ENT: Yes: Other (trach in place) - Smoking History Smoking history: Current every day smoker Have you smoked in the past 12 months: Yes Aproximately how many cigarettes per day: 20 If you are a former smoker, when did you quit?: 2016 - Alcohol/Substance Use Hx Alcohol Use: No History of Substance Use: reports: None - Social History ADL: Independent History of Recent Travel: No History - Admission Reason For Visit: CHEST PAIN/PNEUMONIA Speech Evaluation - Communication Primary Language: TAIWANESE - Speech Production Apraxia: No - Speech Characteristics Articulation: Yes: Precise - Language/Auditory Comprehension Observation: Comprehends Conversational Speech: Yes - Swallow Evaluation/Bedside Assessment A-P Transit: WFL
--- NOTE | 2018-04-01 12:38 | PN ---
Teaching Attending Note Name of Resident: Maria Luz Castrejon ATTENDING PHYSICIAN STATEMENT I saw and evaluated the patient. I reviewed the resident's note and discussed the case with the resident. I agree with the resident's findings and plan as documented. SUBJECTIVE: Pt seen and examined in the ICU. Oxygenation continues to improve. Tolerating CPAP/PS 5/5. Has been combative towards staff. OBJECTIVE: Vital Signs Period Temp Pulse Resp BP Sys/Lisa Pulse Ox Last 24 Hr 98 F 85-114 18-25 99-138/73-89 93-97 Intake & Output 03/29/18 03/30/18 03/31/18 04/01/18 23:59 23:59 23:59 23:59 Intake Total 2213 1520 50 Output Total 1150 200 400 Balance 1063 1320 -350 Weight 50.802 kg 50.8 kg Gen: NAD, vented Heart: tachycardic, regular Lung: scattered rales Abd: soft, nontender Ext: no edema CBC, BMP 04/01/18 05:30 04/01/18 05:30 Active Medications Acetaminophen (Tylenol -) 650 mg PO Q6H PRN PRN Reason: FEVER Last Admin: 03/31/18 09:50 Dose: 650 mg Albuterol Sulfate (Ventolin 0.083% Nebulizer Soln -) 1 amp NEB Q4H PRN PRN Reason: SHORT OF BREATH/WHEEZING Last Admin: 03/30/18 09:25 Dose: 1 amp Albuterol/Ipratropium (Duoneb -) 1 amp NEB RQID [facility] Last Admin: 04/01/18 11:40 Dose: 1 amp Budesonide/Formoterol Fumarate (Symbicort 160/4.5mcg -) 2 puff IH BID [facility] Last Admin: 04/01/18 09:46 Dose: Not Given Chlorhexidine Gluconate (Hibiclens For Decolonization -) 1 applic TP HS [facility] Last Admin: 03/31/18 21:53 Dose: 1 applic Emtricitabine/Tenofovir (Truvada) 1 tab PO DAILY [facility] Last Admin: 04/01/18 09:45 Dose: 1 tab Etravirine (Intelence -) 100 mg PO BIDPC [facility] Last Admin: 04/01/18 09:39 Dose: 100 mg Fluticasone Propionate (Flonase -) 1 spray NS DAILY [facility] Last Admin: 04/01/18 09:48 Dose: 1 spray Gabapentin (Neurontin Oral Liquid -) 250 mg PEG BID [facility] Last Admin: 04/01/18 09:49 Dose: 250 mg Heparin Sodium (Porcine) (Heparin -) 5,000 unit SQ TID [facility] Last Admin: 04/01/18 07:03 Dose: 5,000 unit Cefazolin Sodium 1 gm/ (Dextrose) 50 mls @ 100 mls/hr IVPB Q8H-IV [facility] Last Admin: 04/01/18 09:41 Dose: 100 mls/hr Midazolam HCl 100 mg/ Sodium (Chloride) 100 mls @ 3 mls/hr IVPB TITR RAZ; Protocol Last Titration: 03/31/18 19:30 Dose: 3 mg/hr, 3 mls/hr Melatonin (Melatonin) 5 mg PO HS PRN PRN Reason: INSOMNIA Last Admin: 03/31/18 21:50 Dose: 5 mg Methylprednisolone Sodium Succinate (Solu-Medrol -) 40 mg IVPUSH Q8H-IV [facility] Last Admin: 04/01/18 09:45 Dose: 40 mg Mirtazapine (Remeron -) 15 mg PEG HS [facility] Last Admin: 03/31/18 21:50 Dose: 15 mg Mupirocin (Bactroban Ointment (For Decolonization) -) 1 applic NS BID [facility] Stop: 04/04/18 21:59 Last Admin: 04/01/18 10:16 Dose: 1 appful Oxycodone HCl (Roxicodone -) 5 mg PO Q4H PRN PRN Reason: PAIN LEVEL 6-10 Last Admin: 03/31/18 09:49 Dose: 5 mg Raltegravir (Isentress -) 400 mg NR BID [facility] Last Admin: 04/01/18 09:44 Dose: 400 mg Sertraline HCl (Zoloft -) 50 mg PO DAILY [facility] Last Admin: 04/01/18 09:46 Dose: 50 mg ASSESSMENT AND PLAN: Acute on Chronic Hypoxic Respiratory Failure Pneumonia ARDS Klebsiella Bacteremia Sepsis HIV/AIDS h/o Laryngeal Ca s/p trach/PEG - continue antibiotics - can d/c medrol - inhaled bronchodilators - pain control - chest PT/bed percussion - inhaled bronchodilators - can attempt trach collar - continue ART - DVT prophylaxis - can monitor on floor critical care time spent in reviewing chart, evaluating patient and formulating plan 35 min
[2018-04-01] MEDS: oxyCODONE HCL 5 MG TABLET PO PRN (14:23)
[2018-04-01] MEDS: ACETAMINOPHEN 325 MG TABLET (FP) PO PRN ×2 (14:24→21:36)
[2018-04-01] MEDS ORDERED: LIDOCAINE 5% TOPICAL PATCH TP ONE (16:56)
[2018-04-01] MEDS: CHLORHEXIDINE GLUCONATE 4% CLEANSER FOR DECOLONIZATION TP SCH (21:30)
[2018-04-01] MEDS: MELATONIN 5 MG TABLETS PO PRN (21:36)
[2018-04-01] MEDS: MIRTAZAPINE 15 MG TABLET (FP) PEG SCH (21:37)
[2018-04-01] MEDS ORDERED: LIDOCAINE PATCH REMOVAL MC ONE (22:00)
[2018-04-02] MEDS ORDERED: ceFAZolin SODIUM 1 GM VIAL ONE ×4 (01:25→21:20)
[2018-04-02] MEDS ORDERED: DEXTROSE 5%-WATER - 50 ML IVPB ONE ×4 (01:25→21:20)
[2018-04-02] MEDS: CEFAZOLIN 1 GM in DEXTROSE 5%-WATER - 50 ML IVPB SCH ×3 (01:30→17:28)
[2018-04-02] MEDS: ALBUTEROL SO4 0.083% IH SOL 2.5 MG/3 ML VIAL.NEB. NEB PRN (03:06)
[2018-04-02] MEDS ORDERED: LORazepam 2 MG/ML SDV VIAL IVPUSH ONE (03:12)
[2018-04-02 06:13] LABS: BASO % 0.1 % (0-2.0); EOS % 0.2 % (0-4.5); HEMATOCRIT 29.2 % (32.4-45.2); HEMOGLOBIN 9.8 GM/dL (10.7-15.3); MCH 32.6 pg (25.7-33.7); MCHC 33.5 g/dl (32.0-36.0); MEAN CELL VOLUME 97.2 fl (80-96); MEAN PLT VOLUME 9.1 fl (7.5-11.1); MONO % 5.7 % (3.8-10.2); PLATELET COUNT 239 K/MM3 (134-434); RBC 3.01 M/mm3 (3.60-5.2); RDW 14.6 % (11.6-15.6); WHITE BLOOD COUNT 8.1 K/mm3 (4.0-10.0)
[2018-04-02 06:20] LABS: ALBUMIN 1.8 g/dl (3.4-5.0); ALK PHOS 59 U/L (45-117); ANION GAP 5 MMOL/L (8-16); BILIRUBIN,TOTAL 0.1 mg/dL (0.2-1.0); BLOOD UREA NITROGEN 26 mg/dL (7-18); CALCIUM 7.5 mg/dL (8.5-10.1); CHLORIDE 105 mmol/L (98-107); CO2 33 mmol/L (21-32); CREATININE 0.3 mg/dL (0.55-1.02); GLUCOSE,RANDOM 88 mg/dL (74-106); MAGNESIUM 2.1 mg/dL (1.8-2.4); POTASSIUM 3.5 mmol/L (3.5-5.1); SGOT/AST 34 U/L (15-37); SGPT/ALT 32 U/L (12-78); SODIUM 143 mmol/L (136-145); TOT PROT 4.7 g/dl (6.4-8.2)
[2018-04-02] MEDS: HEPARIN NA (PORCINE) 5,000 UNITS/ML 1ML VIAL SQ SCH ×3 (06:23→21:35)
--- NOTE | 2018-04-02 07:55 | PN ---
Physical Exam: SUBJECTIVE: Patient seen and examined this morning. Pt states that she had desaturation to 70s-80s overnight. She continues to suction her trach tube and speak until she desaturates. Pt has been advised to keep suction only when needed, and the pulse oximeter has measured a low of 93% in last 24 hrs. The nurse provided 1 mg ativan overnight for anxiety, which allowed her to relax. She has been tolerating the trach collar with no other issues. She denies fevers /chills, nausea/vomiting, SOB or chest pain. Her BMs and urination have been stable. OBJECTIVE: Vital Signs Period Temp Pulse Resp BP Sys/Lisa Pulse Ox Last 24 Hr 98 F-98.9 F 85-103 17-23 91-133/68-90 93-99 GENERAL: The patient is awake, alert, and fully oriented, in no acute distress. HEAD: Normal with no signs of trauma. EYES: PERRL, extraocular movements intact, sclera anicteric, conjunctiva clear. No ptosis. ENT: Nares patent, oropharynx clear without exudates, moist mucous membranes. Clear sputum production from trach site today. NECK: Trachea midline, full range of motion, supple. LUNGS: Breath sounds equal, coarse over R lung base, no wheezes, no crackles, no accessory muscle use. HEART: Regular rate and rhythm, S1, S2 without murmur, rub or gallop. ABDOMEN: Soft, nontender, nondistended, normoactive bowel sounds, no guarding, no rebound, no hepatosplenomegaly, no masses. EXTREMITIES: 2+ pulses, warm, well-perfused, no edema. NEUROLOGICAL: Cranial nerves II through XII grossly intact. Normal speech, gait not observed. PSYCH: Pt emotional and becomes easily upset with staff members. SKIN: Warm, dry, normal turgor, no rashes or lesions noted. Laboratory Results - last 24 hr 04/02/18 04/02/18 05:30 05:30 WBC 8.1 RBC 3.01 L Hgb 9.8 L Hct 29.2 L MCV 97.2 H MCH 32.6 MCHC 33.5 RDW 14.6 Plt Count 239 MPV 9.1 Absolute Neuts (auto) 6.5 Neutrophils % 80.0 Lymphocytes % 14.0 D Monocytes % 5.7 Eosinophils % 0.2 D Basophils % 0.1 Nucleated RBC % 0 Sodium 143 Potassium 3.5 Chloride 105 Carbon Dioxide 33 H Anion Gap 5 L BUN 26 H Creatinine 0.3 L Creat Clearance w eGFR > 60 Random Glucose 88 Calcium 7.5 L Magnesium 2.1 Total Bilirubin 0.1 L AST 34 ALT 32 Alkaline Phosphatase 59 D Total Protein 4.7 L Albumin 1.8 L Active Medications Generic Name Dose Route Start Last Admin Trade Name Freq PRN Reason Stop Dose Admin Acetaminophen 650 mg 03/29/18 19:51 04/01/18 21:36 Tylenol - PO 650 mg Q6H PRN Administration FEVER Albuterol Sulfate 1 amp 03/29/18 13:38 04/02/18 03:06 Ventolin 0.083% Nebulizer Soln - NEB 1 amp Q4H PRN Administration SHORT OF BREATH/WHEEZING Albuterol/Ipratropium 1 amp 03/30/18 12:00 04/01/18 20:42 Duoneb - NEB 1 amp RQID RAZ Administration Budesonide/Formoterol Fumarate 2 puff 03/29/18 22:00 04/01/18 09:46 Symbicort 160/4.5mcg - IH Not Given BID RAZ Chlorhexidine Gluconate 1 applic 03/30/18 22:00 04/01/18 21:30 Hibiclens For Decolonization - TP 1 applic HS RAZ Administration Clonazepam 0.5 mg 04/02/18 07:41 Klonopin - PO 04/03/18 07:40 BID PRN ANXIETY Emtricitabine/Tenofovir 1 tab 03/30/18 10:00 04/01/18 09:45 Truvada PO 1 tab DAILY RAZ Administration Etravirine 100 mg 03/29/18 18:30 04/01/18 17:37 Intelence - PO 100 mg BIDPC RAZ Administration Fluticasone Propionate 1 spray 03/30/18 10:00 04/01/18 09:48 Flonase - NS 1 spray DAILY RAZ Administration Gabapentin 250 mg 03/29/18 22:00 04/01/18 21:38 Neurontin Oral Liquid - PEG 250 mg BID RAZ Administration Heparin Sodium (Porcine) 5,000 unit 03/30/18 15:00 04/02/18 06:23 Heparin - SQ 5,000 unit TID RAZ Administration Cefazolin Sodium 1 gm/ 50 mls @ 100 mls/hr 03/31/18 11:15 04/02/18 01:30 Dextrose IVPB 100 mls/hr Q8H-IV RAZ Administration Melatonin 5 mg 03/29/18 23:57 04/01/18 21:36 Melatonin PO 5 mg HS PRN Administration INSOMNIA Mirtazapine 15 mg 03/29/18 22:00 04/01/18 21:37 Remeron - PEG 15 mg HS RAZ Administration Mupirocin 1 applic 03/30/18 22:00 04/01/18 21:39 Bactroban Ointment (For Decolonization) - NS 04/04/18 21:59 1 appful BID RAZ Administration Raltegravir 400 mg 03/29/18 22:00 04/01/18 21:39 Isentress - NR 400 mg BID RAZ Administration Sertraline HCl 50 mg 03/30/18 10:00 04/01/18 09:46 Zoloft - PO 50 mg DAILY RAZ Administration ASSESSMENT/PLAN: Pt is a 47 yo F, with 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 1. Neuro Anxiety - Scheduled: 0.5 klonopin BID PRN, 5 mg melatonin (insomnia) QHS, 100 mg midazolam Qday, 15 mg Mirtazapine Qday, 50 mg Zoloft Qday Provided 1 mg ativan overnight once. Pain control as needed. 2. Respiratory Pt was weaned from ventilator back to the trach cuff, and is tolerating. Before trach cuff, pt was weaned onto CPAP RR 14, PEEP 5, FiO2 40% and TV 320. Vent removed by respiratory Weaned from Versed drip, will provide 0.25 mg PO klonopin once pt on trach collar and can tolerate PO. Weaned from Versed drip and switched to PO klonopin (0.5 mg BID PRN). Pt is fully alert and oriented. Continuing Ventolin and Symbicort. Discontinued solumedrol. Chest x-ray today showed continued bi-basilar infiltrates; the infiltrates in R lung appear worse today (taken off PEEP when vent was removed). Cefazolin 2g Q8Hr per Dr. Kee, Day 3. Changed from 3.375 g Zosyn. Cultures have shown Klebsiella pneumonia. Will re-draw blood cultures in the AM. Laryngeal CA - continue trach collar as tolerated. 3. GI Diarrhea - stool studies and urine Ag pending 4. Heme/Onc/ID HIV/AIDS - continue home HAART medication. CD3 644, CD4 311, CD8 332 Klebsiella pnx - ID on board. Changed to cefazolin as above. 5. Prophylaxis Heparin 500 u SQ TID, SCDs b/l 6. Nutrition Pt has been NPO. Barium swallow to be done today. Pt can continue feeding once pt is cleared. Continue PEG tube monitoring Disposition: transfer to med/surg once trach collar placed. Problem List - Problems (1) Laryngeal carcinoma Code(s): C32.9 - MALIGNANT NEOPLASM OF LARYNX, UNSPECIFIED (2) Pneumonia Code(s): J18.9 - PNEUMONIA, UNSPECIFIED ORGANISM Qualifiers: Pneumonia type: due to unspecified organism Laterality: bilateral Lung location: unspecified part of lung Qualified Code(s): J18.9 - Pneumonia, unspecified organism (3) AIDS Code(s): B20 - HUMAN IMMUNODEFICIENCY VIRUS [HIV] DISEASE (4) Cough Code(s): R05 - COUGH (5) DVT prophylaxis Code(s): [id number] - Visit type - Emergency Visit Emergency Visit: Yes ED Registration Date: 03/28/18 Care time: The patient presented to the Emergency Department on the above date and was hospitalized for further evaluation of their emergent condition. - New Patient This patient is new to me today: No - Critical Care Critical Care patient: Yes Total Critical Care Time (in minutes): 30 Critical Care Statement: The care of this patient involved high complexity decision making to prevent further life threatening deterioration of the patient 's condition and/or to evaluate & treat vital organ system(s) failure or risk of failure. - Discharge Referral Referred to [facility] Yes
[2018-04-02] MEDS: ALBUTEROL SO4 2.5/IPRATROPIUM 0.5 INH SOL 3 ML VIAL.NEB. NEB SCH ×4 (08:01→21:00)
--- NOTE | 2018-04-02 09:43 | PN ---
Teaching Attending Note Name of Resident: Maria Luz Castrejon ATTENDING PHYSICIAN STATEMENT I saw and evaluated the patient. I reviewed the resident's note and discussed the case with the resident. I agree with the resident's findings and plan as documented. SUBJECTIVE: Pt seen and examined in the ICU. Off mechanical ventilation on trach collar. Still with and thick secretions. No fevers recorded. OBJECTIVE: Vital Signs Period Temp Pulse Resp BP Sys/Lisa Pulse Ox Last 24 Hr 98 F-98.9 F 89-103 17-22 91-133/68-90 94-99 Intake & Output 03/30/18 03/31/18 04/01/18 04/02/18 23:59 23:59 23:59 23:59 Intake Total 1520 50 250 0 Output Total 498 849 5081 400 Balance 1320 -350 -850 -400 Weight 50.802 kg 50.8 kg Gen: anxious but less tachypneic Heart: RRR Lung: right base rales Abd: soft, nontender Ext: no edema CBC, BMP 04/02/18 05:30 04/02/18 05:30 Active Medications Acetaminophen (Tylenol -) 650 mg PO Q6H PRN PRN Reason: FEVER Last Admin: 04/01/18 21:36 Dose: 650 mg Albuterol Sulfate (Ventolin 0.083% Nebulizer Soln -) 1 amp NEB Q4H PRN PRN Reason: SHORT OF BREATH/WHEEZING Last Admin: 04/02/18 03:06 Dose: 1 amp Albuterol/Ipratropium (Duoneb -) 1 amp NEB RQID [facility] Last Admin: 04/02/18 08:01 Dose: 1 amp Budesonide/Formoterol Fumarate (Symbicort 160/4.5mcg -) 2 puff IH BID [facility] Last Admin: 04/01/18 09:46 Dose: Not Given Chlorhexidine Gluconate (Hibiclens For Decolonization -) 1 applic TP HS [facility] Last Admin: 04/01/18 21:30 Dose: 1 applic Clonazepam (Klonopin -) 0.5 mg PO BID PRN PRN Reason: ANXIETY Stop: 04/03/18 07:40 Emtricitabine/Tenofovir (Truvada) 1 tab PO DAILY [facility] Last Admin: 04/01/18 09:45 Dose: 1 tab Etravirine (Intelence -) 100 mg PO BIDPC [facility] Last Admin: 04/01/18 17:37 Dose: 100 mg Fluticasone Propionate (Flonase -) 1 spray NS DAILY [facility] Last Admin: 04/01/18 09:48 Dose: 1 spray Gabapentin (Neurontin Oral Liquid -) 250 mg PEG BID [facility] Last Admin: 04/01/18 21:38 Dose: 250 mg Heparin Sodium (Porcine) (Heparin -) 5,000 unit SQ TID [facility] Last Admin: 04/02/18 06:23 Dose: 5,000 unit Cefazolin Sodium 1 gm/ (Dextrose) 50 mls @ 100 mls/hr IVPB Q8H-IV [facility] Last Admin: 04/02/18 01:30 Dose: 100 mls/hr Melatonin (Melatonin) 5 mg PO HS PRN PRN Reason: INSOMNIA Last Admin: 04/01/18 21:36 Dose: 5 mg Mirtazapine (Remeron -) 15 mg PEG HS [facility] Last Admin: 04/01/18 21:37 Dose: 15 mg Mupirocin (Bactroban Ointment (For Decolonization) -) 1 applic NS BID [facility] Stop: 04/04/18 21:59 Last Admin: 04/01/18 21:39 Dose: 1 appful Raltegravir (Isentress -) 400 mg NR BID [facility] Last Admin: 04/01/18 21:39 Dose: 400 mg Sertraline HCl (Zoloft -) 50 mg PO DAILY [facility] Last Admin: 04/01/18 09:46 Dose: 50 mg ASSESSMENT AND PLAN: Acute on Chronic Hypoxic Respiratory Failure Pneumonia ARDS resolving Klebsiella Bacteremia Sepsis HIV/AIDS h/o Laryngeal Ca s/p trach/PEG - continue antibiotics - repeat cultures in AM - inhaled bronchodilators - pain control - chest PT/bed percussion - inhaled bronchodilators - taper Fio2 to keep SpO2 >90% - continue ART - DVT prophylaxis - can monitor on floor with pulse oximetry monitoring
[2018-04-02] MEDS: BUDESONIDE/FORMETEROL FUMARATE 160/4.5 mcg INHALER IH SCH ×2 (09:44→22:00)
[2018-04-02] MEDS: ETRAVIRINE 100 MG TABLET PO SCH ×2 (09:48→17:46)
[2018-04-02] MEDS: FLUTICASONE PROP 0.05% 16 GM NASAL SPRAY NS SCH (09:49)
[2018-04-02] MEDS: MUPIROCIN 2% TOPICAL OINTMENT FOR DECOLONIZATION NS SCH ×2 (09:49→22:00)
[2018-04-02] MEDS: EMTRICITABINE 200MG/TENOFOVIR 300MG PO SCH (09:50)
[2018-04-02] MEDS: RALTEGRAVIR POTASSIUM 400 MG TAB NR SCH ×2 (09:50→21:36)
[2018-04-02] MEDS: clonazePAM 0.5 MG TABLET PO PRN ×2 (09:51→21:35)
[2018-04-02] MEDS: SERTRALINE HCL 50 MG TABLET (FP) PO SCH (09:51)
[2018-04-02] MEDS: ACETAMINOPHEN 325 MG TABLET (FP) PO PRN ×2 (09:52→17:28)
[2018-04-02] MEDS ORDERED: PT OWN MED DRAWER 7, Y5N ONE ×3 (09:56→21:20)
[2018-04-02] MEDS: GABAPENTIN 250 MG/5 ML ORAL SOLUTION, 470 ML BOTTLE PEG SCH ×2 (09:58→21:36)
--- NOTE | 2018-04-02 10:50 | PN ---
Progress Note, Physician History of Present Illness: Awake, alert Breathing non-labored on trach collar Afebrile WBC WNL BC Klebsiella - Current Medication List Current Medications: Active Medications Acetaminophen (Tylenol -) 650 mg PO Q6H PRN PRN Reason: FEVER Last Admin: 04/02/18 09:52 Dose: 650 mg Albuterol Sulfate (Ventolin 0.083% Nebulizer Soln -) 1 amp NEB Q4H PRN PRN Reason: SHORT OF BREATH/WHEEZING Last Admin: 04/02/18 03:06 Dose: 1 amp Albuterol/Ipratropium (Duoneb -) 1 amp NEB RQID RAZ Last Admin: 04/02/18 08:01 Dose: 1 amp Budesonide/Formoterol Fumarate (Symbicort 160/4.5mcg -) 2 puff IH BID RAZ Last Admin: 04/02/18 09:44 Dose: 2 puff Chlorhexidine Gluconate (Hibiclens For Decolonization -) 1 applic TP HS [facility] Last Admin: 04/01/18 21:30 Dose: 1 applic Clonazepam (Klonopin -) 0.5 mg PO BID PRN PRN Reason: ANXIETY Stop: 04/03/18 07:40 Last Admin: 04/02/18 09:51 Dose: 0.5 mg Emtricitabine/Tenofovir (Truvada) 1 tab PO DAILY RAZ Last Admin: 04/02/18 09:50 Dose: 1 tab Etravirine (Intelence -) 100 mg PO BIDPC [facility] Last Admin: 04/02/18 09:48 Dose: 100 mg Fluticasone Propionate (Flonase -) 1 spray NS DAILY [facility] Last Admin: 04/02/18 09:49 Dose: 1 spray Gabapentin (Neurontin Oral Liquid -) 250 mg PEG BID RAZ Last Admin: 04/02/18 09:58 Dose: 250 mg Heparin Sodium (Porcine) (Heparin -) 5,000 unit SQ TID RAZ Last Admin: 04/02/18 06:23 Dose: 5,000 unit Cefazolin Sodium 1 gm/ (Dextrose) 50 mls @ 100 mls/hr IVPB Q8H-IV RAZ Last Admin: 04/02/18 09:45 Dose: 100 mls/hr Melatonin (Melatonin) 5 mg PO HS PRN PRN Reason: INSOMNIA Last Admin: 04/01/18 21:36 Dose: 5 mg Mirtazapine (Remeron -) 15 mg PEG HS [facility] Last Admin: 04/01/18 21:37 Dose: 15 mg Mupirocin (Bactroban Ointment (For Decolonization) -) 1 applic NS BID [facility] Stop: 04/04/18 21:59 Last Admin: 04/02/18 09:49 Dose: 1 appful Raltegravir (Isentress -) 400 mg NR BID [facility] Last Admin: 04/02/18 09:50 Dose: 400 mg Sertraline HCl (Zoloft -) 50 mg PO DAILY [facility] Last Admin: 04/02/18 09:51 Dose: 50 mg - Objective Vital Signs: Vital Signs Temperature 98 F 04/02/18 02:00 Pulse Rate 108 H 04/02/18 09:40 Respiratory Rate 22 04/02/18 06:00 Blood Pressure 107/75 04/02/18 06:00 O2 Sat by Pulse Oximetry (%) 95 04/02/18 09:40 Constitutional: Yes: Cachectic Cardiovascular: Yes: Regular Rate and Rhythm, Tachycardia, S1, S2 Respiratory: Yes: Rhonchi Gastrointestinal: Yes: Normal Bowel Sounds, Soft. No: Tenderness Edema: No Labs: CBC, BMP 04/02/18 05:30 04/02/18 05:30 INR, PTT INR 1.22 (0.83-1.09) H 03/28/18 12:35 Assessment/Plan Bilateral Pneumonia clinically improved Respiratory failure Klebsiella bacteremia AID Continue cefazolin 2gm q8h
--- NOTE | 2018-04-02 14:12 | PN ---
Progress Note, BLIND AIDE - Note Progress Note: Pt made aware that MBS should not be done until pt has trach changed and provox can be used. She is in agreement. Continue GT feedings. Pt can have MBS done as out pt. Pt understands that she needs to be strictly NPO until MBS can be done. Reviewed with Residents, Nursing, PT.
--- NOTE | 2018-04-02 17:41 | PN ---
Physical Exam: SUBJECTIVE: Patient seen and examined in the ICU. at the bedside. OBJECTIVE: patient is now off mechanical ventilation and on trach collar. No fevers recorded. NPO until MBS study. patient has peg tube. Vital Signs Period Temp Pulse Resp BP Sys/Lisa Pulse Ox Last 24 Hr 98 F-98.9 F 86-108 17-254 84-133/44-82 93-96 GENERAL: The patient is awake, alert, and fully oriented, in no acute distress. anxious HEAD: Normal with no signs of trauma, on ventilator via trach EYES: PERRL, extraocular movements intact, sclera anicteric, conjunctiva clear. No ptosis. ENT: Ears normal, nares patent, oropharynx clear without exudates NECK: Trachea midline, full range of motion, supple. LUNGS: +congestion on anterior lungs, no wheezing HEART: Regular rate and rhythm 90s on case monitor ABDOMEN: Soft, nontender, nondistended. NEUROLOGICAL: expresses her self via writing PSYCH: anxious SKIN: Warm, dry, normal turgor, no rashes or lesions noted Laboratory Results - last 24 hr 04/02/18 04/02/18 05:30 05:30 WBC 8.1 RBC 3.01 L Hgb 9.8 L Hct 29.2 L MCV 97.2 H MCH 32.6 MCHC 33.5 RDW 14.6 Plt Count 239 MPV 9.1 Absolute Neuts (auto) 6.5 Neutrophils % 80.0 Lymphocytes % 14.0 D Monocytes % 5.7 Eosinophils % 0.2 D Basophils % 0.1 Nucleated RBC % 0 Sodium 143 Potassium 3.5 Chloride 105 Carbon Dioxide 33 H Anion Gap 5 L BUN 26 H Creatinine 0.3 L Creat Clearance w eGFR > 60 Random Glucose 88 Calcium 7.5 L Magnesium 2.1 Total Bilirubin 0.1 L AST 34 ALT 32 Alkaline Phosphatase 59 D Total Protein 4.7 L Albumin 1.8 L Active Medications Generic Name Dose Route Start Last Admin Trade Name Freq PRN Reason Stop Dose Admin Acetaminophen 650 mg 03/29/18 19:51 04/02/18 09:52 Tylenol - PO 650 mg Q6H PRN Administration FEVER Albuterol Sulfate 1 amp 03/29/18 13:38 04/02/18 03:06 Ventolin 0.083% Nebulizer Soln - NEB 1 amp Q4H PRN Administration SHORT OF BREATH/WHEEZING Albuterol/Ipratropium 1 amp 03/30/18 12:00 04/02/18 12:17 Duoneb - NEB 1 amp RQID RAZ Administration Budesonide/Formoterol Fumarate 2 puff 03/29/18 22:00 04/02/18 09:44 Symbicort 160/4.5mcg - IH 2 puff BID RAZ Administration Chlorhexidine Gluconate 1 applic 03/30/18 22:00 04/01/18 21:30 Hibiclens For Decolonization - TP 1 applic HS RAZ Administration Clonazepam 0.5 mg 04/02/18 07:41 04/02/18 09:51 Klonopin - PO 04/03/18 07:40 0.5 mg BID PRN Administration ANXIETY Emtricitabine/Tenofovir 1 tab 03/30/18 10:00 04/02/18 09:50 Truvada PO 1 tab DAILY RAZ Administration Etravirine 100 mg 03/29/18 18:30 04/02/18 09:48 Intelence - PO 100 mg BIDPC RAZ Administration Fluticasone Propionate 1 spray 03/30/18 10:00 04/02/18 09:49 Flonase - NS 1 spray DAILY RAZ Administration Gabapentin 250 mg 03/29/18 22:00 04/02/18 09:58 Neurontin Oral Liquid - PEG 250 mg BID RAZ Administration Heparin Sodium (Porcine) 5,000 unit 03/30/18 15:00 04/02/18 14:02 Heparin - SQ 5,000 unit TID RAZ Administration Cefazolin Sodium 1 gm/ 50 mls @ 100 mls/hr 03/31/18 11:15 04/02/18 09:45 Dextrose IVPB 100 mls/hr Q8H-IV RAZ Administration Melatonin 5 mg 03/29/18 23:57 04/01/18 21:36 Melatonin PO 5 mg HS PRN Administration INSOMNIA Mirtazapine 15 mg 03/29/18 22:00 04/01/18 21:37 Remeron - PEG 15 mg HS RAZ Administration Mupirocin 1 applic 03/30/18 22:00 04/02/18 09:49 Bactroban Ointment (For Decolonization) - NS 04/04/18 21:59 1 appful BID RAZ Administration Raltegravir 400 mg 03/29/18 22:00 04/02/18 09:50 Isentress - NR 400 mg BID RAZ Administration Sertraline HCl 50 mg 03/30/18 10:00 04/02/18 09:51 Zoloft - PO 50 mg DAILY RAZ Administration ASSESSMENT/PLAN: Patient is a 47 year old female with a significant past medical history of HIV, laryngeal cancer, chronic trach, PEG tube, hepatitis B and failure to thrive. Patient presented to the ED with symptoms of nausea, vomiting, diarrhea, cough and fever. ID: Gram negative sepsis in the setting of HIV and laryngeal cancer: Pneumonia and + blood cultures (klebsiella): Chronic trach/shortness of breath/Asthma/COPD: Blood cultures 03/28 +kleb, repeat blood cultures negative to date. On Cefazolin. patient is now off mechanical ventilation and on trach collar. No fevers recorded. Pulm: Pneumonia/COPD exacerbation. On bronchodilators and chest percussion. Chest xray shows progressive infiltrates. Monitor airway to maintain stable oxygen levels of >92%. Onc: Laryngeal carcinoma, has chronic trach and feeds via peg tube. Needs MBS to evaluate swallowing function. Seen by speech and swallow. Pt made aware that MBS could not be done until patient has her trach changed and provox can be used. On GT feedings. MBS can be done outpatient per Sheyla Ovalle. HIV: Continue home antiviral therapy. Neuro Anxiety history. Monitor for increased anxiety. GI Diarrhea: stool studies uncollected. prophy: Heparin TID swallow evaluation, will need MBS fen GT feeds, given boost supplements via gravity. dietary consult. monitor electrolytes transfer to floor with continuous pulse monitoring. Visit type - Emergency Visit Emergency Visit: Yes ED Registration Date: 03/28/18 Care time: The patient presented to the Emergency Department on the above date and was hospitalized for further evaluation of their emergent condition. - New Patient This patient is new to me today: No - Critical Care Critical Care patient: Yes Total Critical Care Time (in minutes): 45 Critical Care Statement: The care of this patient involved high complexity decision making to prevent further life threatening deterioration of the patient 's condition and/or to evaluate & treat vital organ system(s) failure or risk of failure.
[2018-04-02] MEDS: MIRTAZAPINE 15 MG TABLET (FP) PEG SCH (21:35)
[2018-04-02] MEDS: CHLORHEXIDINE GLUCONATE 4% CLEANSER FOR DECOLONIZATION TP SCH (22:00)
[2018-04-03] MEDS ORDERED: LIDOCAINE 5% TOPICAL PATCH TP ONE (00:43)
[2018-04-03] MEDS ORDERED: ACETAMINOPHEN 1000 MG/100 ML VIAL (NON FORMULARY) IVPB ONE (00:43)
[2018-04-03] MEDS: CEFAZOLIN 1 GM in DEXTROSE 5%-WATER - 50 ML IVPB SCH ×3 (02:00→17:44)
[2018-04-03] MEDS: ALBUTEROL SO4 0.083% IH SOL 2.5 MG/3 ML VIAL.NEB. NEB PRN (02:30)
[2018-04-03] MEDS ORDERED: oxyCODONE HCL 5 MG TABLET PO ONE (04:16)
[2018-04-03 06:05] LABS: EOS % 1.7 % (0-4.5); HEMOGLOBIN 10.7 GM/dL (10.7-15.3); MCH 32.7 pg (25.7-33.7); MCHC 33.4 g/dl (32.0-36.0); MEAN CELL VOLUME 97.8 fl (80-96); MEAN PLT VOLUME 8.7 fl (7.5-11.1); MONO % 6.5 % (3.8-10.2); NEUT % 71.8 % (42.8-82.8); PLATELET COUNT 292 K/MM3 (134-434); RBC 3.27 M/mm3 (3.60-5.2); RDW 14.8 % (11.6-15.6); WHITE BLOOD COUNT 5.7 K/mm3 (4.0-10.0)
[2018-04-03] MEDS: HEPARIN NA (PORCINE) 5,000 UNITS/ML 1ML VIAL SQ SCH ×3 (06:33→22:15)
[2018-04-03 06:45] LABS: ANION GAP 5 MMOL/L (8-16); BLOOD UREA NITROGEN 16 mg/dL (7-18); CALCIUM 7.6 mg/dL (8.5-10.1); CHLORIDE 103 mmol/L (98-107); CO2 33 mmol/L (21-32); GLUCOSE,RANDOM 75 mg/dL (74-106); MAGNESIUM 2.2 mg/dL (1.8-2.4); POTASSIUM 3.5 mmol/L (3.5-5.1); SODIUM 141 mmol/L (136-145)
[2018-04-03 06:51] LABS: ALK PHOS 61 U/L (45-117); BILIRUBIN,TOTAL 0.2 mg/dL (0.2-1.0); CREATININE 0.3 mg/dL (0.55-1.02); SGOT/AST 27 U/L (15-37); SGPT/ALT 27 U/L (12-78); TOT PROT 5.3 g/dl (6.4-8.2)
[2018-04-03] MEDS: ALBUTEROL SO4 2.5/IPRATROPIUM 0.5 INH SOL 3 ML VIAL.NEB. NEB SCH (07:55)
[2018-04-03] MEDS ORDERED: PT OWN MED DRAWER 7, Y5N ONE ×3 (08:47→16:43)
[2018-04-03] MEDS ORDERED: DEXTROSE 5%-WATER - 50 ML IVPB ONE ×2 (08:48→17:36)
[2018-04-03] MEDS ORDERED: ceFAZolin SODIUM 1 GM VIAL ONE ×2 (08:48→17:36)
[2018-04-03] MEDS: ETRAVIRINE 100 MG TABLET PO SCH ×2 (10:00→17:46)
[2018-04-03] MEDS: FLUTICASONE PROP 0.05% 16 GM NASAL SPRAY NS SCH (10:05)
[2018-04-03] MEDS: MUPIROCIN 2% TOPICAL OINTMENT FOR DECOLONIZATION NS SCH (10:05)
[2018-04-03] MEDS: BUDESONIDE/FORMETEROL FUMARATE 160/4.5 mcg INHALER IH SCH ×2 (10:06→22:00)
[2018-04-03] MEDS: RALTEGRAVIR POTASSIUM 400 MG TAB NR SCH ×2 (10:08→22:17)
[2018-04-03] MEDS: SERTRALINE HCL 50 MG TABLET (FP) PO SCH (10:09)
--- NOTE | 2018-04-03 10:18 | PN ---
Teaching Attending Note Name of Resident: Mark Whitehead ATTENDING PHYSICIAN STATEMENT I saw and evaluated the patient. I reviewed the resident's note and discussed the case with the resident. I agree with the resident's findings and plan as documented. SUBJECTIVE: Patien tis on trach collar;FiO2 60%; sating >90s; still with productive cough with clear white sputum production; looks very anxious otherwise very nice female. OBJECTIVE: Vital Signs Temperature 98.4 F 04/03/18 06:00 Pulse Rate 96 H 04/03/18 09:00 Respiratory Rate 18 04/03/18 09:00 Blood Pressure 116/85 04/03/18 09:00 O2 Sat by Pulse Oximetry (%) 98 04/03/18 09:00 CBCD WBC 5.7 K/mm3 (4.0-10.0) 04/03/18 05:30 RBC 3.27 M/mm3 (3.60-5.2) L 04/03/18 05:30 Hgb 10.7 GM/dL (10.7-15.3) 04/03/18 05:30 Hct 32.0 % (32.4-45.2) L 04/03/18 05:30 MCV 97.8 fl (80-96) H 04/03/18 05:30 MCHC 33.4 g/dl (32.0-36.0) 04/03/18 05:30 RDW 14.8 % (11.6-15.6) 04/03/18 05:30 Plt Count 292 K/MM3 (134-434) D 04/03/18 05:30 MPV 8.7 fl (7.5-11.1) 04/03/18 05:30 CMP Sodium 141 mmol/L (136-145) 04/03/18 05:30 Potassium 3.5 mmol/L (3.5-5.1) 04/03/18 05:30 Chloride 103 mmol/L (98-107) 04/03/18 05:30 Carbon Dioxide 33 mmol/L (21-32) H 04/03/18 05:30 Anion Gap 5 MMOL/L (8-16) L 04/03/18 05:30 BUN 16 mg/dL (7-18) 04/03/18 05:30 Creatinine 0.3 mg/dL (0.55-1.02) L 04/03/18 05:30 Creat Clearance w eGFR > 60 (>60) 04/03/18 05:30 Random Glucose 75 mg/dL (74-106) 04/03/18 05:30 Calcium 7.6 mg/dL (8.5-10.1) L 04/03/18 05:30 Total Bilirubin 0.2 mg/dL (0.2-1.0) 04/03/18 05:30 AST 27 U/L (15-37) 04/03/18 05:30 ALT 27 U/L (12-78) 04/03/18 05:30 Alkaline Phosphatase 61 U/L (45-117) 04/03/18 05:30 Total Protein 5.3 g/dl (6.4-8.2) L 04/03/18 05:30 Albumin 2.0 g/dl (3.4-5.0) L 04/03/18 05:30 CARDIAC ENZYMES Creatine Kinase 54 IU/L (26-192) 03/28/18 18:55 Troponin I < 0.02 ng/ml (0.00-0.05) 03/28/18 18:55 Current Medications Generic Name Dose Route Start Last Admin Trade Name Freq PRN Reason Stop Dose Admin Acetaminophen 650 mg 03/29/18 19:51 04/02/18 17:28 Tylenol - PO 650 mg Q6H PRN Administration FEVER Albuterol Sulfate 1 amp 03/29/18 13:38 04/03/18 02:30 Ventolin 0.083% Nebulizer Soln - NEB 1 amp Q4H PRN Administration SHORT OF BREATH/WHEEZING Albuterol/Ipratropium 1 amp 03/30/18 12:00 04/03/18 07:55 Duoneb - NEB 1 amp RQID RAZ Administration Budesonide/Formoterol Fumarate 2 puff 03/29/18 22:00 04/03/18 10:06 Symbicort 160/4.5mcg - IH 2 puff BID RAZ Administration Chlorhexidine Gluconate 1 applic 03/30/18 22:00 04/02/18 22:00 Hibiclens For Decolonization - TP 1 applic HS RAZ Administration Emtricitabine/Tenofovir 1 tab 03/30/18 10:00 04/02/18 09:50 Truvada PO 1 tab DAILY RAZ Administration Etravirine 100 mg 03/29/18 18:30 04/02/18 17:46 Intelence - PO 100 mg BIDPC RAZ Administration Fluticasone Propionate 1 spray 03/30/18 10:00 04/03/18 10:05 Flonase - NS 1 spray DAILY RAZ Administration Gabapentin 250 mg 03/29/18 22:00 04/02/18 21:36 Neurontin Oral Liquid - PEG 250 mg BID RAZ Administration Heparin Sodium (Porcine) 5,000 unit 03/30/18 15:00 04/03/18 06:33 Heparin - SQ 5,000 unit TID RAZ Administration Cefazolin Sodium 1 gm/ 50 mls @ 100 mls/hr 03/31/18 11:15 04/03/18 10:04 Dextrose IVPB 100 mls/hr Q8H-IV RAZ Administration Melatonin 5 mg 03/29/18 23:57 04/01/18 21:36 Melatonin PO 5 mg HS PRN Administration INSOMNIA Mirtazapine 15 mg 03/29/18 22:00 04/02/18 21:35 Remeron - PEG 15 mg HS RAZ Administration Miscellaneous 1 each 04/03/18 13:00 Lidoderm Patch Removal MC 04/03/18 13:01 ONCE ONE Mupirocin 1 applic 03/30/18 22:00 04/03/18 10:05 Bactroban Ointment (For Decolonization) - NS 04/04/18 21:59 1 appful BID RAZ Administration Raltegravir 400 mg 03/29/18 22:00 04/03/18 10:08 Isentress - NR 400 mg BID RAZ Administration Sertraline HCl 50 mg 03/30/18 10:00 04/03/18 10:09 Zoloft - PO 50 mg DAILY RAZ Administration Home Medications Medication Instructions Recorded Albuterol 0.083% Nebulizer Keyonna 1 neb NEB Q4H PRN #1 box MDD 6 11/18/17 [Ventolin 0.083% Nebulizer Soln -] Albuterol Sulfate Inhaler - 1 inh IH Q4H #1 inhaler 11/18/17 [Ventolin HFA Inhaler -] Budesonide/Formeterol Fumarate 2 inh IH BID #1 inhaler 11/18/17 [SYMBICORT 160/4.5mcg -] Emtricitabine/Tenofovir [Truvada -] 1 tab PEG DAILY #30 tablet 11/18/17 Etravirine [Intelence -] 100 mg PEG BID #60 tablet 11/18/17 Fluticasone Prop 0.05% Nasal 1 - 2 spray NS DAILY #1 spray.pump 11/18/17 [Flonase -] Gabapentin Liquid [Neurontin Oral 250 mg PO BID #1 bottle 11/18/17 Liquid -] Raltegravir [Isentress] 400 mg PEG BID #60 tab 11/18/17 Bacitracin - [Bacitracin Topical 1 applic TP BID #1 applic 03/04/18 Ointment -] Clonazepam [Klonopin] 1 mg PO TID PRN #90 tablet MDD 3 03/04/18 Ibuprofen 1 tab PO BID #30 tablet MDD 2 03/04/18 Mirtazapine [Remeron -] 15 mg PO DAILY #30 tablet 03/04/18 Ondansetron HCl [Zofran] 4 mg PO DAILY PRN #5 tablet MDD 1 03/04/18 Sertraline HCl [Zoloft] 50 mg PO DAILY #30 tablet 03/04/18 Sertraline HCl [Zoloft] 100 mg PO AM #30 tablet 03/04/18 Zolpidem Tartrate [Ambien] 5 mg PO HS #30 tablet MDD 1 03/04/18 Microbiology 03/30/18 20:30 Blood - Peripheral Venous Blood Culture - Preliminary NO GROWTH OBTAINED AFTER 72 HOURS, INCUBATION TO CONTINUE FOR 2 DAYS. 03/30/18 18:00 Blood - Peripheral Venous Blood Culture - Preliminary NO GROWTH OBTAINED AFTER 72 HOURS, INCUBATION TO CONTINUE FOR 2 DAYS. 03/28/18 12:35 Blood - Peripheral Venous Blood Culture - Final Klebsiella Pneumoniae 03/28/18 12:35 Blood - Peripheral Venous Blood Culture - Final Klebsiella Pneumoniae 03/28/18 12:50 Urine - Urine Clean Catch Urine Culture - Final PE; very nice female. positive for Trach.collar andomen: positive for Peg tube ASSESSMENT AND PLAN: Patient is a 47 year old female with a significant past medical history of HIV, laryngeal cancer, chronic trach, PEG tube, hepatitis B and failure to thrive. Patient presented to the ED with symptoms of nausea, vomiting, diarrhea, cough and fever. # s/p Sepsis due Klebsiella bactermia : blood culture growing (klebsiella): repeat blood cultures negative to date. on Cefazolin Sodium 1 gm daily #Acute on Chronic Hypoxic Respiratory Failure : on chronic trach: off mechanical ventilation now on trach collar. No fevers recorded. # Pneumonia with resolving ARDS # COPD exacerbation. On bronchodilators and chest percussion. Chest xray shows progressive infiltrates. Monitor airway to maintain stable oxygen levels of >92%. #Hx of Laryngeal carcinoma, has chronic trach and feeds via peg tube. Needs MBS to evaluate swallowing function. Seen by speech and swallow. Pt made aware that MBS could not be done until patient has her trach changed . #HIV/Aids : continue home antiviral therapy. #Anxiety history. Monitor for increased anxiety. #Diarrhea: stool studies uncollected. DVT Px: Heparin TID swallow evaluation, will need MBS
--- NOTE | 2018-04-03 10:23 | PN ---
Teaching Attending Note Name of Resident: Nathaly Morris ATTENDING PHYSICIAN STATEMENT I saw and evaluated the patient. I reviewed the resident's note and discussed the case with the resident. I agree with the resident's findings and plan as documented. SUBJECTIVE: Pt seen and examined in the ICU. Remains on trach collar 50% FiO2. Still with thick secretions. No fevers recorded. OBJECTIVE: Vital Signs Period Temp Pulse Resp BP Sys/Lisa Pulse Ox Last 24 Hr 98.1 F-99.5 F 86-107 15-22 87-119/58-97 93-99 Intake & Output 03/31/18 04/01/18 04/02/18 04/03/18 23:59 23:59 23:59 23:59 Intake Total 50 250 170 Output Total 400 1100 400 400 Balance -350 -850 -230 -400 Weight 50.8 kg 50.349 kg Gen: mildly tachypneic at rest Heart: RRR Lung: basilar rales Abd: soft, nontender Ext: no edema CBC, BMP 04/03/18 05:30 04/03/18 05:30 Active Medications Acetaminophen (Tylenol -) 650 mg PO Q6H PRN PRN Reason: FEVER Last Admin: 04/02/18 17:28 Dose: 650 mg Acetylcysteine (Mucomyst 20 Oral / Inh Use Only*) 200 mg NEB Q4H RAZ Albuterol Sulfate (Ventolin 0.083% Nebulizer Soln -) 1 amp NEB Q4H RAZ Budesonide/Formoterol Fumarate (Symbicort 160/4.5mcg -) 2 puff IH BID [facility] Last Admin: 04/03/18 10:06 Dose: 2 puff Chlorhexidine Gluconate (Hibiclens For Decolonization -) 1 applic TP HS [facility] Last Admin: 04/02/18 22:00 Dose: 1 applic Emtricitabine/Tenofovir (Truvada) 1 tab PO DAILY [facility] Last Admin: 04/02/18 09:50 Dose: 1 tab Etravirine (Intelence -) 100 mg PO BIDPC [facility] Last Admin: 04/02/18 17:46 Dose: 100 mg Fluticasone Propionate (Flonase -) 1 spray NS DAILY [facility] Last Admin: 04/03/18 10:05 Dose: 1 spray Gabapentin (Neurontin Oral Liquid -) 250 mg PEG BID [facility] Last Admin: 04/02/18 21:36 Dose: 250 mg Heparin Sodium (Porcine) (Heparin -) 5,000 unit SQ TID [facility] Last Admin: 04/03/18 06:33 Dose: 5,000 unit Cefazolin Sodium 1 gm/ (Dextrose) 50 mls @ 100 mls/hr IVPB Q8H-IV [facility] Last Admin: 04/03/18 10:04 Dose: 100 mls/hr Melatonin (Melatonin) 5 mg PO HS PRN PRN Reason: INSOMNIA Last Admin: 04/01/18 21:36 Dose: 5 mg Mirtazapine (Remeron -) 15 mg PEG HS [facility] Last Admin: 04/02/18 21:35 Dose: 15 mg Miscellaneous (Lidoderm Patch Removal) 1 each MC ONCE ONE Stop: 04/03/18 13:01 Mupirocin (Bactroban Ointment (For Decolonization) -) 1 applic NS BID [facility] Stop: 04/04/18 21:59 Last Admin: 04/03/18 10:05 Dose: 1 appful Raltegravir (Isentress -) 400 mg NR BID [facility] Last Admin: 04/03/18 10:08 Dose: 400 mg Sertraline HCl (Zoloft -) 50 mg PO DAILY [facility] Last Admin: 04/03/18 10:09 Dose: 50 mg ASSESSMENT AND PLAN: Acute on Chronic Hypoxic Respiratory Failure Pneumonia ARDS resolving Klebsiella Bacteremia Sepsis HIV/AIDS h/o Laryngeal Ca s/p trach/PEG - continue antibiotics - f/u repeat cultures - start bacid - inhaled bronchodilators with mucomyst - pain control - chest PT/bed percussion - taper Fio2 to keep SpO2 >90% - continue ART - DVT prophylaxis - can monitor on floor with pulse oximetry monitoring
[2018-04-03] MEDS ORDERED: ALBUTEROL SO4 0.083% IH SOL 2.5 MG/3 ML VIAL.NEB. NEB SCH (10:30)
[2018-04-03] MEDS: EMTRICITABINE 200MG/TENOFOVIR 300MG PO SCH (10:56)
[2018-04-03] MEDS: GABAPENTIN 250 MG/5 ML ORAL SOLUTION, 470 ML BOTTLE PEG SCH ×2 (11:00→22:18)
[2018-04-03] MEDS: clonazePAM 0.5 MG TABLET PO PRN (11:01)
[2018-04-03] MEDS: methylPREDNISolone NA SUCC 40 MG/1 ML VIAL IVPUSH SCH ×2 (11:01→17:43)
[2018-04-03] MEDS: LACTOBACILLUS ACIDOPHILUS 1 TABLET PO SCH (11:01)
[2018-04-03] MEDS: ACETAMINOPHEN 325 MG TABLET (FP) PO PRN ×2 (11:01→17:43)
[2018-04-03] MEDS: ACETYLCYSTEINE 20% 200MG/ML 4 ML VIAL *FOR ORAL / INH USE ONLY NEB SCH ×4 (11:23→21:56)
[2018-04-03] MEDS: ALBUTEROL SO4 0.083% IH SOL 2.5 MG/3 ML VIAL.NEB. NEB SCH ×4 (11:24→21:56)
--- NOTE | 2018-04-03 11:35 | PN ---
Physical Exam: SUBJECTIVE: Patient seen and examined at bed side in ICU complain of chest pain when she is coughing productive cough of white sputum OBJECTIVE: Vital Signs Period Temp Pulse Resp BP Sys/Lisa Pulse Ox Last 24 Hr 98.1 F-99.5 F 86-107 15-22 87-119/58-97 93-99 GENERAL: AAO, in NAD . HEAD: NC/AT EYES: PERRL, EOMI , conjunctiva clear. ENT: MMM NECK: trachea in place , full range of motion, supple. LUNGS: diffuse coarse breath sounds HEART: RRR, S1, S2 without murmur, rub or gallop. ABDOMEN: Soft, nontender, nondistended, normoactive bowel sounds, no guarding, no rebound, PEG in place with no leakage EXTREMITIES: 2+ pulses, warm, well-perfused, no edema. NEUROLOGICAL: no focal deficit . Normal speech, gait not observed. SKIN: Warm, dry, Laboratory Results - last 24 hr 04/03/18 04/03/18 05:30 05:30 WBC 5.7 RBC 3.27 L Hgb 10.7 Hct 32.0 L MCV 97.8 H MCH 32.7 MCHC 33.4 RDW 14.8 Plt Count 292 D MPV 8.7 Absolute Neuts (auto) 4.1 Neutrophils % 71.8 Lymphocytes % 20.0 D Monocytes % 6.5 Eosinophils % 1.7 D Basophils % 0.0 Nucleated RBC % 0 Sodium 141 Potassium 3.5 Chloride 103 Carbon Dioxide 33 H Anion Gap 5 L BUN 16 Creatinine 0.3 L Creat Clearance w eGFR > 60 Random Glucose 75 Calcium 7.6 L Magnesium 2.2 Total Bilirubin 0.2 AST 27 ALT 27 Alkaline Phosphatase 61 Total Protein 5.3 L Albumin 2.0 L Active Medications Generic Name Dose Route Start Last Admin Trade Name Freq PRN Reason Stop Dose Admin Acetaminophen 650 mg 03/29/18 19:51 04/03/18 11:01 Tylenol - PO 650 mg Q6H PRN Administration FEVER Acetylcysteine 200 mg 04/03/18 10:30 04/03/18 11:23 Mucomyst 20 Oral / Inh Use Only* NEB 200 mg Q4HWA RAZ Administration Albuterol Sulfate 1 amp 04/03/18 10:30 04/03/18 11:24 Ventolin 0.083% Nebulizer Soln - NEB 1 amp Q4HWA RAZ Administration Budesonide/Formoterol Fumarate 2 puff 03/29/18 22:00 04/03/18 10:06 Symbicort 160/4.5mcg - IH 2 puff BID RAZ Administration Chlorhexidine Gluconate 1 applic 03/30/18 22:00 04/02/18 22:00 Hibiclens For Decolonization - TP 1 applic HS RAZ Administration Emtricitabine/Tenofovir 1 tab 03/30/18 10:00 04/03/18 10:56 Truvada PO 1 tab DAILY RAZ Administration Etravirine 100 mg 03/29/18 18:30 04/03/18 10:00 Intelence - PO 100 mg BIDPC RAZ Administration Fluticasone Propionate 1 spray 03/30/18 10:00 04/03/18 10:05 Flonase - NS 1 spray DAILY RAZ Administration Gabapentin 250 mg 03/29/18 22:00 04/02/18 21:36 Neurontin Oral Liquid - PEG 250 mg BID RAZ Administration Heparin Sodium (Porcine) 5,000 unit 03/30/18 15:00 04/03/18 06:33 Heparin - SQ 5,000 unit TID RAZ Administration Cefazolin Sodium 1 gm/ 50 mls @ 100 mls/hr 03/31/18 11:15 04/03/18 10:04 Dextrose IVPB 100 mls/hr Q8H-IV RAZ Administration Lactobacillus Acidophilus 1 tab 04/03/18 10:45 04/03/18 11:01 Bacid - PO 1 tab DAILY RAZ Administration Melatonin 5 mg 03/29/18 23:57 04/01/18 21:36 Melatonin PO 5 mg HS PRN Administration INSOMNIA Methylprednisolone Sodium Succinate 40 mg 04/03/18 10:45 04/03/18 11:01 Solu-Medrol - IVPUSH 40 mg Q8H-IV RAZ Administration Mirtazapine 15 mg 03/29/18 22:00 04/02/18 21:35 Remeron - PEG 15 mg HS RAZ Administration Miscellaneous 1 each 04/03/18 13:00 Lidoderm Patch Removal MC 04/03/18 13:01 ONCE ONE Mupirocin 1 applic 03/30/18 22:00 04/03/18 10:05 Bactroban Ointment (For Decolonization) - NS 04/04/18 21:59 1 appful BID RAZ Administration Raltegravir 400 mg 03/29/18 22:00 04/03/18 10:08 Isentress - NR 400 mg BID RAZ Administration Sertraline HCl 50 mg 03/30/18 10:00 04/03/18 10:09 Zoloft - PO 50 mg DAILY RAZ Administration CBC, BMP 04/03/18 05:30 04/03/18 05:30 ASSESSMENT/PLAN: Patient is a 47 year old female with a significant past medical history of HIV, laryngeal cancer, chronic trach, PEG tube, hepatitis B and failure to thrive. Patient presented to the ED with symptoms of nausea, vomiting, diarrhea, cough and fever. #Gram negative sepsis in the setting of HIV and laryngeal cancer: * Pneumonia and + blood cultures (klebsiella): * Chronic trach/shortness of breath/Asthma/COPD: * Blood cultures 03/28 +kleb, repeat blood cultures negative to date. On Cefazolin. patient is now off mechanical ventilation and on trach collar. No fevers recorded. #Pneumonia/COPD exacerbation. * cont bronchodilators and chest percussion. * Chest xray shows progressive infiltrates. * maintain stable oxygen levels of >92%. #Laryngeal carcinoma, has chronic trach and feeds via peg tube. Needs MBS to evaluate swallowing function. Seen by speech and swallow. Pt made aware that MBS could not be done until patient has her trach changed and provox can be used. On GT feedings. MBS can be done outpatient per Sheyla Ovalle. #HIV: * Continue home antiviral therapy. #Anxiety history. Monitor for increased anxiety. #Diarrhea: * F/U stool studies * famotidine 20 IVBP BID #prophy: * Heparin SQ TID * swallow evaluation, will need MBS # FEN * GT feeds, dietary consult. * monitor electrolytes transfer to floor with Visit type - Emergency Visit Emergency Visit: Yes ED Registration Date: 03/28/18 Care time: The patient presented to the Emergency Department on the above date and was hospitalized for further evaluation of their emergent condition. - New Patient This patient is new to me today: Yes Date on this admission: 04/06/18 - Critical Care Critical Care patient: Yes Total Critical Care Time (in minutes): 45 Critical Care Statement: The care of this patient involved high complexity decision making to prevent further life threatening deterioration of the patient 's condition and/or to evaluate & treat vital organ system(s) failure or risk of failure. - Discharge Referral Referred to [facility] No
--- NOTE | 2018-04-03 11:44 | PN ---
Progress Note, Physician History of Present Illness: Awake, alert C/O pleuritic chest pain Breathing non-labored on trach collar ++ white tracheal secretions Afebrile WBC WNL BC Klebsiella - Current Medication List Current Medications: Active Medications Acetaminophen (Tylenol -) 650 mg PO Q6H PRN PRN Reason: FEVER Last Admin: 04/03/18 11:01 Dose: 650 mg Acetylcysteine (Mucomyst 20 Oral / Inh Use Only*) 200 mg NEB Q4HWA [facility] Last Admin: 04/03/18 11:23 Dose: 200 mg Albuterol Sulfate (Ventolin 0.083% Nebulizer Soln -) 1 amp NEB Q4HWA [facility] Last Admin: 04/03/18 11:24 Dose: 1 amp Budesonide/Formoterol Fumarate (Symbicort 160/4.5mcg -) 2 puff IH BID [facility] Last Admin: 04/03/18 10:06 Dose: 2 puff Chlorhexidine Gluconate (Hibiclens For Decolonization -) 1 applic TP HS [facility] Last Admin: 04/02/18 22:00 Dose: 1 applic Emtricitabine/Tenofovir (Truvada) 1 tab PO DAILY [facility] Last Admin: 04/03/18 10:56 Dose: 1 tab Etravirine (Intelence -) 100 mg PO BIDPC [facility] Last Admin: 04/03/18 10:00 Dose: 100 mg Fluticasone Propionate (Flonase -) 1 spray NS DAILY [facility] Last Admin: 04/03/18 10:05 Dose: 1 spray Gabapentin (Neurontin Oral Liquid -) 250 mg PEG BID [facility] Last Admin: 04/02/18 21:36 Dose: 250 mg Heparin Sodium (Porcine) (Heparin -) 5,000 unit SQ TID [facility] Last Admin: 04/03/18 06:33 Dose: 5,000 unit Cefazolin Sodium 1 gm/ (Dextrose) 50 mls @ 100 mls/hr IVPB Q8H-IV [facility] Last Admin: 04/03/18 10:04 Dose: 100 mls/hr Lactobacillus Acidophilus (Bacid -) 1 tab PO DAILY [facility] Last Admin: 04/03/18 11:01 Dose: 1 tab Melatonin (Melatonin) 5 mg PO HS PRN PRN Reason: INSOMNIA Last Admin: 04/01/18 21:36 Dose: 5 mg Methylprednisolone Sodium Succinate (Solu-Medrol -) 40 mg IVPUSH Q8H-IV [facility] Last Admin: 04/03/18 11:01 Dose: 40 mg Mirtazapine (Remeron -) 15 mg PEG HS [facility] Last Admin: 04/02/18 21:35 Dose: 15 mg Miscellaneous (Lidoderm Patch Removal) 1 each MC ONCE ONE Stop: 04/03/18 13:01 Mupirocin (Bactroban Ointment (For Decolonization) -) 1 applic NS BID [facility] Stop: 04/04/18 21:59 Last Admin: 04/03/18 10:05 Dose: 1 appful Raltegravir (Isentress -) 400 mg NR BID [facility] Last Admin: 04/03/18 10:08 Dose: 400 mg Sertraline HCl (Zoloft -) 50 mg PO DAILY [facility] Last Admin: 04/03/18 10:09 Dose: 50 mg - Objective Vital Signs: Vital Signs Temperature 98.4 F 04/03/18 06:00 Pulse Rate 96 H 04/03/18 09:00 Respiratory Rate 18 04/03/18 09:00 Blood Pressure 116/85 04/03/18 09:00 O2 Sat by Pulse Oximetry (%) 98 04/03/18 09:00 Constitutional: Yes: No Distress, Cachectic Cardiovascular: Yes: Regular Rate and Rhythm, S1, S2 Respiratory: Yes: Diminished Gastrointestinal: Yes: Normal Bowel Sounds, Soft. No: Tenderness Labs: CBC, BMP 04/03/18 05:30 04/03/18 05:30 INR, PTT INR 1.22 (0.83-1.09) H 03/28/18 12:35 Assessment/Plan Bilateral Pneumonia clinically improved Respiratory failure Klebsiella bacteremia AID Continue cefazolin 2gm q8h
[2018-04-03] MEDS: traMADol HCL 50 MG TABLET PO PRN ×2 (12:12→20:47)
--- NOTE | 2018-04-03 12:16 | PN ---
Physical Exam: SUBJECTIVE: Patient seen and examined currently with trach collar;FiO2 60%; sating >90s; still with productive cough with clear white sputum production; OBJECTIVE: Vital Signs Period Temp Pulse Resp BP Sys/Lisa Pulse Ox Last 24 Hr 98.1 F-99.5 F 86-107 15-22 88-131/58-97 94-99 GENERAL: The patient is awake, alert, and fully oriented EYES: PERRL, extraocular movements intact, sclera anicteric, conjunctiva clear. No ptosis. NECK: trach collar LUNGS: diffuse wheezing;congestion throughout bilateral lung meza HEART: Regular rate and rhythm, S1, S2 without murmur, rub or gallop. ABDOMEN: Soft, nontender, nondistended, normoactive bowel sounds, no guarding, no rebound, EXTREMITIES: 2+ pulses, warm, well-perfused, no edema. NEUROLOGICAL: Cranial nerves II through XII grossly intact., gait not observed. PSYCH:anxious SKIN: Warm, dry, normal turgor, no rashes or lesions noted Laboratory Results - last 24 hr 04/03/18 04/03/18 05:30 05:30 WBC 5.7 RBC 3.27 L Hgb 10.7 Hct 32.0 L MCV 97.8 H MCH 32.7 MCHC 33.4 RDW 14.8 Plt Count 292 D MPV 8.7 Absolute Neuts (auto) 4.1 Neutrophils % 71.8 Lymphocytes % 20.0 D Monocytes % 6.5 Eosinophils % 1.7 D Basophils % 0.0 Nucleated RBC % 0 Sodium 141 Potassium 3.5 Chloride 103 Carbon Dioxide 33 H Anion Gap 5 L BUN 16 Creatinine 0.3 L Creat Clearance w eGFR > 60 Random Glucose 75 Calcium 7.6 L Magnesium 2.2 Total Bilirubin 0.2 AST 27 ALT 27 Alkaline Phosphatase 61 Total Protein 5.3 L Albumin 2.0 L Active Medications Generic Name Dose Route Start Last Admin Trade Name Freq PRN Reason Stop Dose Admin Acetaminophen 650 mg 03/29/18 19:51 04/03/18 11:01 Tylenol - PO 650 mg Q6H PRN Administration FEVER Acetylcysteine 200 mg 04/03/18 10:30 04/03/18 11:23 Mucomyst 20 Oral / Inh Use Only* NEB 200 mg Q4HWA RAZ Administration Albuterol Sulfate 1 amp 04/03/18 10:30 04/03/18 11:24 Ventolin 0.083% Nebulizer Soln - NEB 1 amp Q4HWA RAZ Administration Budesonide/Formoterol Fumarate 2 puff 03/29/18 22:00 04/03/18 10:06 Symbicort 160/4.5mcg - IH 2 puff BID RAZ Administration Chlorhexidine Gluconate 1 applic 03/30/18 22:00 04/02/18 22:00 Hibiclens For Decolonization - TP 1 applic HS RAZ Administration Clonazepam 0.25 mg 04/03/18 11:59 Klonopin - PO BID PRN ANXIETY Emtricitabine/Tenofovir 1 tab 03/30/18 10:00 04/03/18 10:56 Truvada PO 1 tab DAILY RAZ Administration Etravirine 100 mg 03/29/18 18:30 04/03/18 10:00 Intelence - PO 100 mg BIDPC RAZ Administration Fluticasone Propionate 1 spray 03/30/18 10:00 04/03/18 10:05 Flonase - NS 1 spray DAILY RAZ Administration Gabapentin 250 mg 03/29/18 22:00 04/03/18 11:00 Neurontin Oral Liquid - PEG 250 mg BID RAZ Administration Heparin Sodium (Porcine) 5,000 unit 03/30/18 15:00 04/03/18 06:33 Heparin - SQ 5,000 unit TID RAZ Administration Cefazolin Sodium 1 gm/ 50 mls @ 100 mls/hr 03/31/18 11:15 04/03/18 10:04 Dextrose IVPB 100 mls/hr Q8H-IV RAZ Administration Lactobacillus Acidophilus 1 tab 04/03/18 10:45 04/03/18 11:01 Bacid - PO 1 tab DAILY RAZ Administration Melatonin 5 mg 03/29/18 23:57 04/01/18 21:36 Melatonin PO 5 mg HS PRN Administration INSOMNIA Methylprednisolone Sodium Succinate 40 mg 04/03/18 10:45 04/03/18 11:01 Solu-Medrol - IVPUSH 40 mg Q8H-IV RAZ Administration Mirtazapine 15 mg 03/29/18 22:00 04/02/18 21:35 Remeron - PEG 15 mg HS RAZ Administration Miscellaneous 1 each 04/03/18 13:00 Lidoderm Patch Removal MC 04/03/18 13:01 ONCE ONE Mupirocin 1 applic 03/30/18 22:00 04/03/18 10:05 Bactroban Ointment (For Decolonization) - NS 04/04/18 21:59 1 appful BID RAZ Administration Raltegravir 400 mg 03/29/18 22:00 04/03/18 10:08 Isentress - NR 400 mg BID RAZ Administration Sertraline HCl 50 mg 03/30/18 10:00 04/03/18 10:09 Zoloft - PO 50 mg DAILY RAZ Administration Tramadol HCl 50 mg 04/03/18 12:02 04/03/18 12:12 Ultram - PO 50 mg Q6H PRN Administration PAIN LEVEL 4 - 6 ASSESSMENT/PLAN: This is a 47 year old female with a medical history of HIV/AIDS, hepatitis C, COPD with chronic respiratory failure with trach collar, presents with worsening hypoxic failure secondary to Klebsiella PNA. #Acute on Chronic Hypoxic Respiratory Failure; secondary to sepsis secondary to Klebsiella PNA/bacteremia; with h/o laryngeal CA -cont IV antibiotics' cefazolin; appreciate ID recs -f/u blood cultures -cont bronchodilators -cont nebs with mucomyst for mucus clearance -trach collar; FiO2 on 50-60; keep O2 sat >90% -chest PT #ADRS: mild; improving #HIV/AIDS: stable -cont antiretroviral therapy -viral load undetectable #h/o Laryngeal Ca s/p trach/PEG #Anxiety: -clonazapam .25 bod prn FEN Fluids: peg Electrolytes: wnl Nutrition: boost thru pej tube; now able to put in own trach; need swallow eval DVT: ppl heparin sq Disposition: stable to transfer to tele Visit type - Emergency Visit Emergency Visit: Yes ED Registration Date: 03/28/18 Care time: The patient presented to the Emergency Department on the above date and was hospitalized for further evaluation of their emergent condition. - New Patient This patient is new to me today: Yes Date on this admission: 04/03/18 - Critical Care Critical Care patient: Yes Total Critical Care Time (in minutes): 40 Critical Care Statement: The care of this patient involved high complexity decision making to prevent further life threatening deterioration of the patient 's condition and/or to evaluate & treat vital organ system(s) failure or risk of failure.
[2018-04-03] MEDS ORDERED: LIDOCAINE PATCH REMOVAL MC ONE (13:00)
[2018-04-03] MEDS ORDERED: MELATONIN 5 MG TABLETS PO PRN (15:41)
[2018-04-03] MEDS ORDERED: CHLORHEXIDINE GLUCONATE 4% CLEANSER FOR DECOLONIZATION TP SCH (22:00)
[2018-04-03] MEDS ORDERED: MUPIROCIN 2% TOPICAL OINTMENT FOR DECOLONIZATION NS SCH (22:00)
[2018-04-03] MEDS: FAMOTIDINE 20 MG/50 ML IVPB 20 MG/50 ML MG IVPB SCH (22:14)
[2018-04-03] MEDS: MIRTAZAPINE 15 MG TABLET (FP) PEG SCH (22:18)
[2018-04-04] MEDS: ACETAMINOPHEN 325 MG TABLET (FP) PO PRN ×2 (00:52→10:34)
[2018-04-04] MEDS: clonazePAM 0.5 MG TABLET PO PRN ×3 (00:53→21:43)
[2018-04-04] MEDS ORDERED: ceFAZolin SODIUM 1 GM VIAL ONE ×3 (02:24→17:19)
[2018-04-04] MEDS ORDERED: DEXTROSE 5%-WATER - 50 ML IVPB ONE ×3 (02:24→17:19)
[2018-04-04] MEDS: methylPREDNISolone NA SUCC 40 MG/1 ML VIAL IVPUSH SCH ×3 (02:29→17:25)
[2018-04-04] MEDS: CEFAZOLIN 1 GM in DEXTROSE 5%-WATER - 50 ML IVPB SCH ×3 (02:30→17:25)
[2018-04-04] MEDS: ACETYLCYSTEINE 20% 200MG/ML 4 ML VIAL *FOR ORAL / INH USE ONLY NEB SCH ×5 (06:11→21:12)
[2018-04-04] MEDS: ALBUTEROL SO4 0.083% IH SOL 2.5 MG/3 ML VIAL.NEB. NEB SCH ×5 (06:12→21:13)
[2018-04-04] MEDS: HEPARIN NA (PORCINE) 5,000 UNITS/ML 1ML VIAL SQ SCH ×3 (06:22→21:41)
[2018-04-04] MEDS: traMADol HCL 50 MG TABLET PO PRN ×3 (06:23→21:43)
[2018-04-04 07:37] LABS: BASO % 0.1 % (0-2.0); EOS % 0.7 % (0-4.5); HEMATOCRIT 32.3 % (32.4-45.2); HEMOGLOBIN 10.7 GM/dL (10.7-15.3); LYMPH % 3.9 % (8-40); MCH 32.6 pg (25.7-33.7); MCHC 33.2 g/dl (32.0-36.0); MEAN CELL VOLUME 98.2 fl (80-96); MEAN PLT VOLUME 8.6 fl (7.5-11.1); MONO % 1.6 % (3.8-10.2); NEUT % 93.7 % (42.8-82.8); PLATELET COUNT 329 K/MM3 (134-434); RBC 3.29 M/mm3 (3.60-5.2); RDW 14.5 % (11.6-15.6); WHITE BLOOD COUNT 14.2 K/mm3 (4.0-10.0)
[2018-04-04] MEDS: ETRAVIRINE 100 MG TABLET PO SCH ×2 (08:31→18:02)
[2018-04-04 09:01] LABS: ANION GAP 1 MMOL/L (8-16); BLOOD UREA NITROGEN 21 mg/dL (7-18); CHLORIDE 105 mmol/L (98-107); CO2 32 mmol/L (21-32); CREATININE 0.3 mg/dL (0.55-1.02); GLUCOSE,RANDOM 121 mg/dL (74-106); MAGNESIUM 2.1 mg/dL (1.8-2.4); PHOSPHOROUS 3.1 mg/dL (2.5-4.9); POTASSIUM 4.2 mmol/L (3.5-5.1); SODIUM 138 mmol/L (136-145)
[2018-04-04] MEDS ORDERED: PT OWN MED DRAWER 7, Y5N ONE (09:36)
[2018-04-04] MEDS: FLUTICASONE PROP 0.05% 16 GM NASAL SPRAY NS SCH (10:18)
[2018-04-04] MEDS: EMTRICITABINE 200MG/TENOFOVIR 300MG PO SCH (10:19)
[2018-04-04] MEDS: BUDESONIDE/FORMETEROL FUMARATE 160/4.5 mcg INHALER IH SCH ×2 (10:19→21:42)
[2018-04-04] MEDS: RALTEGRAVIR POTASSIUM 400 MG TAB NR SCH ×2 (10:20→21:42)
[2018-04-04] MEDS: SERTRALINE HCL 50 MG TABLET (FP) PO SCH (10:21)
[2018-04-04] MEDS: FAMOTIDINE 20 MG/50 ML IVPB 20 MG/50 ML MG IVPB SCH ×2 (10:22→21:41)
[2018-04-04] MEDS: LACTOBACILLUS ACIDOPHILUS 1 TABLET PO SCH (10:22)
[2018-04-04] MEDS: GABAPENTIN 250 MG/5 ML ORAL SOLUTION, 470 ML BOTTLE PEG SCH ×2 (10:47→21:41)
--- NOTE | 2018-04-04 12:19 | PN ---
Physical Exam: SUBJECTIVE: Patient seen and examined. She feels much better. OBJECTIVE: Vital Signs Period Temp Pulse Resp BP Sys/Lisa Pulse Ox Last 24 Hr 98.4 F-98.6 F 80-112 22-26 112-128/70-90 93-98 GENERAL: The patient is awake, alert, and fully oriented, in no acute distress. LUNGS: Breath sounds equal, bilateral rhonchi. HEART: Regular rate and rhythm, S1, S2 without murmur, rub or gallop. ABDOMEN: Soft, nontender, nondistended, normoactive bowel sounds, no guarding, no rebound, no hepatosplenomegaly, no masses. EXTREMITIES: 2+ pulses, warm, well-perfused, no edema. Laboratory Results - last 24 hr 04/04/18 04/04/18 05:30 05:30 WBC 14.2 H RBC 3.29 L Hgb 10.7 Hct 32.3 L MCV 98.2 H MCH 32.6 MCHC 33.2 RDW 14.5 Plt Count 329 MPV 8.6 Absolute Neuts (auto) 13.3 H Neutrophils % 93.7 H D Neutrophils % (Manual) 93.7 H Band Neutrophils % 1.1 Lymphocytes % 3.9 L D Lymphocytes % (Manual) 3.2 L Monocytes % 1.6 L Monocytes % (Manual) 1 L Eosinophils % 0.7 Eosinophils % (Manual) 1.0 Basophils % 0.1 D Basophils % (Manual) 0.0 Myelocytes % (Man) 0 Promyelocytes % (Man) 0 Blast Cells % (Manual) 0 Nucleated RBC % 0 Metamyelocytes 0 Sodium 138 Potassium 4.2 Chloride 105 Carbon Dioxide 32 Anion Gap 1 L BUN 21 H Creatinine 0.3 L Creat Clearance w eGFR > 60 Random Glucose 121 H Calcium 8.0 L Phosphorus 3.1 Magnesium 2.1 Active Medications Generic Name Dose Route Start Last Admin Trade Name Freq PRN Reason Stop Dose Admin Acetaminophen 650 mg 04/03/18 15:41 04/04/18 10:34 Tylenol - PO 650 mg Q6H PRN Administration FEVER Acetylcysteine 200 mg 04/03/18 10:30 04/04/18 10:10 Mucomyst 20 Oral / Inh Use Only* NEB 200 mg Q4HWA RAZ Administration Albuterol Sulfate 1 amp 04/03/18 10:30 04/04/18 10:10 Ventolin 0.083% Nebulizer Soln - NEB 1 amp Q4HWA RAZ Administration Budesonide/Formoterol Fumarate 2 puff 04/03/18 22:00 04/04/18 10:19 Symbicort 160/4.5mcg - IH 2 puff BID RAZ Administration Clonazepam 0.25 mg 04/03/18 11:59 04/04/18 10:47 Klonopin - PO 0.25 mg BID PRN Administration ANXIETY Emtricitabine/Tenofovir 1 tab 04/04/18 10:00 04/04/18 10:19 Truvada PO 1 tab DAILY RAZ Administration Etravirine 100 mg 04/03/18 18:30 04/04/18 08:31 Intelence - PO 100 mg BIDPC RAZ Administration Fluticasone Propionate 1 spray 04/04/18 10:00 04/04/18 10:18 Flonase - NS 1 spray DAILY RAZ Administration Gabapentin 250 mg 04/03/18 22:00 04/04/18 10:47 Neurontin Oral Liquid - PEG 250 ml BID RAZ Administration Heparin Sodium (Porcine) 5,000 unit 04/03/18 22:00 04/04/18 06:22 Heparin - SQ 5,000 unit TID RZA Administration Famotidine/Sodium Chloride 20 mg in 50 mls @ 100 mls/hr 04/03/18 22:00 10:22 Pepcid 20 Mg Premixed Ivpb - IVPB 100 mls/hr BID RAZ Administration Cefazolin Sodium 1 gm/ 50 mls @ 100 mls/hr 04/03/18 18:00 04/04/18 10:21 Dextrose IVPB 100 mls/hr Q8H-IV RAZ Administration Lactobacillus Acidophilus 1 tab 04/03/18 10:45 04/04/18 10:22 Bacid - PO 1 tab DAILY RAZ Administration Melatonin 5 mg 04/03/18 15:41 Melatonin PO HS PRN INSOMNIA Methylprednisolone Sodium Succinate 40 mg 04/03/18 10:45 04/04/18 10:21 Solu-Medrol - IVPUSH 40 mg Q8H-IV RAZ Administration Mirtazapine 15 mg 04/03/18 22:00 04/03/18 22:18 Remeron - PEG 15 mg HS RAZ Administration Raltegravir 400 mg 04/03/18 22:00 04/04/18 10:20 Isentress - NR 400 mg BID RAZ Administration Sertraline HCl 50 mg 04/04/18 10:00 04/04/18 10:21 Zoloft - PO 50 mg DAILY RAZ Administration Tramadol HCl 50 mg 04/03/18 12:02 04/04/18 06:23 Ultram - PO 50 mg Q6H PRN Administration PAIN LEVEL 4 - 6 ASSESSMENT/PLAN: This is a 47 year old woman with a history of AIDS, laryngeal cancer, trach, PEG , hepatitis B, failure to thrive who presented to the ED with nausea, vomiting, diarrhea, cough, and fever. 1. Gram negative sepsis secondary to pneumonia with Klebsiella bacteremia - Improving - Continue Cefazolin - Blood cultures 03/30 negative after 96 hours, 04/03 negative after 24 hours 2. Hypokalemia - Improved 3. Acute exacerbation of asthma/COPD - Continue SoluMedrol, Symbicort, Mucomyst, albuterol nebs 4. Acute hypoxic respiratory failure - Improved 5. Chronic hypoxic respiratory failure - Continue oxygen via trach 6. Diarrhea - Improved - Stool O&P pending 7. 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 AIDS - Continue Isentress, Intelence, Truvada 9. Anxiety - Continue Zoloft, Klonopin as needed Visit type - Emergency Visit Emergency Visit: Yes ED Registration Date: 03/28/18 Care time: The patient presented to the Emergency Department on the above date and was hospitalized for further evaluation of their emergent condition. - New Patient This patient is new to me today: No - Critical Care Critical Care patient: No - Discharge Referral Referred to [facility] No
[2018-04-04 13:49] LABS: PLATELET ESTIMATE ADEQUATE
--- NOTE | 2018-04-04 14:38 | PN ---
Progress Note (short form) - Note Progress Note: PULMONARY Breathing better. Cough improving. No fevers or chills. Vital Signs Period Temp Pulse Resp BP Sys/Lisa Pulse Ox Last 24 Hr 98.4 F-98.6 F 80-112 22-26 113-128/70-90 93-98 Intake & Output 04/01/18 04/02/18 04/03/18 04/04/18 23:59 23:59 23:59 23:59 Intake Total 250 170 530 170 Output Total 4414 552 2814 Balance -850 -230 -670 170 Weight 50.8 kg 50.349 kg 46.402 kg Gen: less tachypneic Heart: RRR Lung: scattered basilar rales Abd: soft, nontender Ext: no edema CBC, BMP 04/04/18 05:30 04/04/18 05:30 Active Medications Acetaminophen (Tylenol -) 650 mg PO Q6H PRN PRN Reason: FEVER Last Admin: 04/04/18 10:34 Dose: 650 mg Acetylcysteine (Mucomyst 20 Oral / Inh Use Only*) 200 mg NEB Q4HWA [facility] Last Admin: 04/04/18 14:00 Dose: 200 mg Albuterol Sulfate (Ventolin 0.083% Nebulizer Soln -) 1 amp NEB Q4HWA [facility] Last Admin: 04/04/18 14:00 Dose: 1 amp Budesonide/Formoterol Fumarate (Symbicort 160/4.5mcg -) 2 puff IH BID [facility] Last Admin: 04/04/18 10:19 Dose: 2 puff Clonazepam (Klonopin -) 0.25 mg PO BID PRN PRN Reason: ANXIETY Last Admin: 04/04/18 10:47 Dose: 0.25 mg Emtricitabine/Tenofovir (Truvada) 1 tab PO DAILY [facility] Last Admin: 04/04/18 10:19 Dose: 1 tab Etravirine (Intelence -) 100 mg PO BIDPC [facility] Last Admin: 04/04/18 08:31 Dose: 100 mg Fluticasone Propionate (Flonase -) 1 spray NS DAILY [facility] Last Admin: 04/04/18 10:18 Dose: 1 spray Gabapentin (Neurontin Oral Liquid -) 250 mg PEG BID [facility] Last Admin: 04/04/18 10:47 Dose: 250 ml Heparin Sodium (Porcine) (Heparin -) 5,000 unit SQ TID [facility] Last Admin: 04/04/18 14:08 Dose: 5,000 unit Famotidine/Sodium Chloride (Pepcid 20 Mg Premixed Ivpb -) 20 mg in 50 mls @ 100 mls/hr IVPB BID [facility] Last Admin: 04/04/18 10:22 Dose: 100 mls/hr Cefazolin Sodium 1 gm/ (Dextrose) 50 mls @ 100 mls/hr IVPB Q8H-IV [facility] Last Admin: 04/04/18 10:21 Dose: 100 mls/hr Lactobacillus Acidophilus (Bacid -) 1 tab PO DAILY [facility] Last Admin: 04/04/18 10:22 Dose: 1 tab Melatonin (Melatonin) 5 mg PO HS PRN PRN Reason: INSOMNIA Methylprednisolone Sodium Succinate (Solu-Medrol -) 40 mg IVPUSH Q8H-IV [facility] Last Admin: 04/04/18 10:21 Dose: 40 mg Mirtazapine (Remeron -) 15 mg PEG HS [facility] Last Admin: 04/03/18 22:18 Dose: 15 mg Raltegravir (Isentress -) 400 mg NR BID [facility] Last Admin: 04/04/18 10:20 Dose: 400 mg Sertraline HCl (Zoloft -) 50 mg PO DAILY [facility] Last Admin: 04/04/18 10:21 Dose: 50 mg Tramadol HCl (Ultram -) 50 mg PO Q6H PRN PRN Reason: PAIN LEVEL 4 - 6 Last Admin: 04/04/18 14:07 Dose: 50 mg Zolpidem Tartrate (Ambien -) 5 mg PO HS PRN PRN Reason: INSOMNIA A/P Acute on Chronic Hypoxic Respiratory Failure improving Pneumonia ARDS resolving Klebsiella Bacteremia Sepsis HIV/AIDS h/o Laryngeal Ca s/p trach/PEG - continue antibiotics - f/u repeat cultures - continue bacid - inhaled bronchodilators with mucomyst - pain control - chest PT/bed percussion - taper Fio2 to keep SpO2 >90% - continue ART - DVT prophylaxis
[2018-04-04] MEDS: MIRTAZAPINE 15 MG TABLET (FP) PEG SCH (21:41)
[2018-04-05] MEDS ORDERED: DEXTROSE 5%-WATER - 50 ML IVPB ONE ×3 (01:43→16:50)
[2018-04-05] MEDS ORDERED: ceFAZolin SODIUM 1 GM VIAL ONE ×3 (01:43→16:50)
[2018-04-05] MEDS: methylPREDNISolone NA SUCC 40 MG/1 ML VIAL IVPUSH SCH ×4 (01:49→23:55)
[2018-04-05] MEDS: CEFAZOLIN 1 GM in DEXTROSE 5%-WATER - 50 ML IVPB SCH ×3 (01:49→17:33)
[2018-04-05] MEDS: HEPARIN NA (PORCINE) 5,000 UNITS/ML 1ML VIAL SQ SCH ×3 (05:35→23:58)
[2018-04-05] MEDS: ACETYLCYSTEINE 20% 200MG/ML 4 ML VIAL *FOR ORAL / INH USE ONLY NEB SCH ×7 (05:58→22:14)
[2018-04-05] MEDS: ALBUTEROL SO4 0.083% IH SOL 2.5 MG/3 ML VIAL.NEB. NEB SCH ×5 (05:59→22:14)
[2018-04-05] MEDS: traMADol HCL 50 MG TABLET PO PRN (06:08)
[2018-04-05] MEDS: clonazePAM 0.5 MG TABLET PO PRN (06:08)
[2018-04-05 07:17] LABS: HEMATOCRIT 34.9 % (32.4-45.2); HEMOGLOBIN 11.5 GM/dL (10.7-15.3); LYMPH % 11.3 % (8-40); MCH 32.5 pg (25.7-33.7); MCHC 32.9 g/dl (32.0-36.0); MEAN CELL VOLUME 98.9 fl (80-96); MEAN PLT VOLUME 8.3 fl (7.5-11.1); MONO % 4.3 % (3.8-10.2); NEUT % 83.4 % (42.8-82.8); PLATELET COUNT 377 K/MM3 (134-434); RBC 3.53 M/mm3 (3.60-5.2); RDW 14.9 % (11.6-15.6); WHITE BLOOD COUNT 8.7 K/mm3 (4.0-10.0)
[2018-04-05 07:56] LABS: ANION GAP 9 MMOL/L (8-16); BLOOD UREA NITROGEN 19 mg/dL (7-18); CALCIUM 8.5 mg/dL (8.5-10.1); CHLORIDE 103 mmol/L (98-107); CO2 32 mmol/L (21-32); GLUCOSE,RANDOM 105 mg/dL (74-106); SODIUM 144 mmol/L (136-145)
[2018-04-05 07:57] LABS: CREATININE 0.3 mg/dL (0.55-1.02)
[2018-04-05] MEDS ORDERED: PT OWN MED DRAWER 7, Y5N ONE ×3 (08:51→21:31)
[2018-04-05] MEDS: ETRAVIRINE 100 MG TABLET PO SCH ×2 (09:16→17:34)
[2018-04-05] MEDS: LACTOBACILLUS ACIDOPHILUS 1 TABLET PO SCH (09:17)
[2018-04-05] MEDS: EMTRICITABINE 200MG/TENOFOVIR 300MG PO SCH (09:18)
[2018-04-05] MEDS: FLUTICASONE PROP 0.05% 16 GM NASAL SPRAY NS SCH (09:18)
[2018-04-05] MEDS: RALTEGRAVIR POTASSIUM 400 MG TAB NR SCH ×2 (09:18→23:55)
[2018-04-05] MEDS: BUDESONIDE/FORMETEROL FUMARATE 160/4.5 mcg INHALER IH SCH ×2 (09:19→23:51)
[2018-04-05] MEDS: SERTRALINE HCL 50 MG TABLET (FP) PO SCH (09:19)
[2018-04-05] MEDS: FAMOTIDINE 20 MG/50 ML IVPB 20 MG/50 ML MG IVPB SCH ×2 (09:19→23:55)
[2018-04-05] MEDS: GABAPENTIN 250 MG/5 ML ORAL SOLUTION, 470 ML BOTTLE PEG SCH ×2 (09:21→23:55)
--- NOTE | 2018-04-05 09:32 | PN ---
Progress Note (short form) - Note Progress Note: overall limproved reports intermittent coughing and wheezing intermittent drops on oxygen sats Vital Signs Period Temp Pulse Resp BP Sys/Lisa Pulse Ox Last 24 Hr 97.6 F-98.6 F 91-109 - 113-141/64-87 90-93 cor-rrr lungs bilateral rhonchi/wheezing abd soft,nt, +GT ext no edema CBC, BMP 04/05/18 05:30 04/05/18 05:30 Microbiology 04/03/18 05:30 Blood - Peripheral Venous Blood Culture - Preliminary NO GROWTH OBTAINED AFTER 48 HOURS, INCUBATION TO CONTINUE FOR 3 DAYS. 04/03/18 05:40 Blood - Peripheral Venous Blood Culture - Preliminary NO GROWTH OBTAINED AFTER 48 HOURS, INCUBATION TO CONTINUE FOR 3 DAYS. 03/30/18 20:30 Blood - Peripheral Venous Blood Culture - Final NO GROWTH AFTER 5 DAYS INCUBATION 03/30/18 18:00 Blood - Peripheral Venous Blood Culture - Final NO GROWTH AFTER 5 DAYS INCUBATION 03/28/18 12:35 Blood - Peripheral Venous Blood Culture - Final Klebsiella Pneumoniae 03/28/18 12:35 Blood - Peripheral Venous Blood Culture - Final Klebsiella Pneumoniae 03/28/18 12:50 Urine - Urine Clean Catch Urine Culture - Final Current Medications Acetaminophen (Tylenol -) 650 mg PO Q6H PRN PRN Reason: FEVER Last Admin: 04/04/18 10:34 Dose: 650 mg Acetylcysteine (Mucomyst 20 Oral / Inh Use Only*) 200 mg NEB Q4HWA [facility] Last Admin: 04/05/18 05:58 Dose: 200 mg Albuterol Sulfate (Ventolin 0.083% Nebulizer Soln -) 1 amp NEB Q4HWA [facility] Last Admin: 04/05/18 05:59 Dose: 1 amp Budesonide/Formoterol Fumarate (Symbicort 160/4.5mcg -) 2 puff IH BID [facility] Last Admin: 04/05/18 09:19 Dose: 2 puff Clonazepam (Klonopin -) 0.25 mg PO BID PRN PRN Reason: ANXIETY Last Admin: 04/05/18 06:08 Dose: 0.25 mg Emtricitabine/Tenofovir (Truvada) 1 tab PO DAILY [facility] Last Admin: 04/05/18 09:18 Dose: 1 tab Etravirine (Intelence -) 100 mg PO BIDPC [facility] Last Admin: 04/05/18 09:16 Dose: 100 mg Fluticasone Propionate (Flonase -) 1 spray NS DAILY [facility] Last Admin: 04/05/18 09:18 Dose: 1 spray Gabapentin (Neurontin Oral Liquid -) 250 mg PEG BID [facility] Last Admin: 04/05/18 09:21 Dose: 250 mg Heparin Sodium (Porcine) (Heparin -) 5,000 unit SQ TID [facility] Last Admin: 04/05/18 05:35 Dose: 5,000 unit Famotidine/Sodium Chloride (Pepcid 20 Mg Premixed Ivpb -) 20 mg in 50 mls @ 100 mls/hr IVPB BID [facility] Last Admin: 04/05/18 09:19 Dose: 100 mls/hr Cefazolin Sodium 1 gm/ (Dextrose) 50 mls @ 100 mls/hr IVPB Q8H-IV [facility] Last Admin: 04/05/18 09:17 Dose: 100 mls/hr Lactobacillus Acidophilus (Bacid -) 1 tab PO DAILY [facility] Last Admin: 04/05/18 09:17 Dose: 1 tab Melatonin (Melatonin) 5 mg PO HS PRN PRN Reason: INSOMNIA Methylprednisolone Sodium Succinate (Solu-Medrol -) 40 mg IVPUSH Q8H-IV [facility] Last Admin: 04/05/18 09:19 Dose: 40 mg Mirtazapine (Remeron -) 15 mg PEG HS [facility] Last Admin: 04/04/18 21:41 Dose: 15 mg Raltegravir (Isentress -) 400 mg NR BID [facility] Last Admin: 04/05/18 09:18 Dose: 400 mg Sertraline HCl (Zoloft -) 50 mg PO DAILY [facility] Last Admin: 04/05/18 09:19 Dose: 50 mg Tramadol HCl (Ultram -) 50 mg PO Q6H PRN PRN Reason: PAIN LEVEL 4 - 6 Last Admin: 04/05/18 06:08 Dose: 50 mg Zolpidem Tartrate (Ambien -) 5 mg PO HS PRN PRN Reason: INSOMNIA a/p klebsiella bacteremia/pneumonia day #8 cefazolin- to continue slowly improving HIV- stable-continue meds history of laryngeal cancer
--- NOTE | 2018-04-05 09:44 | PN ---
Progress Note, Physician History of Present Illness: PULMONARY ALERT,FEELING BETTER,DYSPNEA IMPROVING - Current Medication List Current Medications: Active Medications Acetaminophen (Tylenol -) 650 mg PO Q6H PRN PRN Reason: FEVER Last Admin: 04/04/18 10:34 Dose: 650 mg Acetylcysteine (Mucomyst 20 Oral / Inh Use Only*) 200 mg NEB Q4HWA [facility] Last Admin: 04/05/18 05:58 Dose: 200 mg Albuterol Sulfate (Ventolin 0.083% Nebulizer Soln -) 1 amp NEB Q4HWA [facility] Last Admin: 04/05/18 05:59 Dose: 1 amp Budesonide/Formoterol Fumarate (Symbicort 160/4.5mcg -) 2 puff IH BID [facility] Last Admin: 04/05/18 09:19 Dose: 2 puff Clonazepam (Klonopin -) 0.25 mg PO BID PRN PRN Reason: ANXIETY Last Admin: 04/05/18 06:08 Dose: 0.25 mg Emtricitabine/Tenofovir (Truvada) 1 tab PO DAILY [facility] Last Admin: 04/05/18 09:18 Dose: 1 tab Etravirine (Intelence -) 100 mg PO BIDPC [facility] Last Admin: 04/05/18 09:16 Dose: 100 mg Fluticasone Propionate (Flonase -) 1 spray NS DAILY [facility] Last Admin: 04/05/18 09:18 Dose: 1 spray Gabapentin (Neurontin Oral Liquid -) 250 mg PEG BID [facility] Last Admin: 04/05/18 09:21 Dose: 250 mg Heparin Sodium (Porcine) (Heparin -) 5,000 unit SQ TID [facility] Last Admin: 04/05/18 05:35 Dose: 5,000 unit Famotidine/Sodium Chloride (Pepcid 20 Mg Premixed Ivpb -) 20 mg in 50 mls @ 100 mls/hr IVPB BID [facility] Last Admin: 04/05/18 09:19 Dose: 100 mls/hr Cefazolin Sodium 1 gm/ (Dextrose) 50 mls @ 100 mls/hr IVPB Q8H-IV [facility] Last Admin: 04/05/18 09:17 Dose: 100 mls/hr Lactobacillus Acidophilus (Bacid -) 1 tab PO DAILY [facility] Last Admin: 04/05/18 09:17 Dose: 1 tab Melatonin (Melatonin) 5 mg PO HS PRN PRN Reason: INSOMNIA Methylprednisolone Sodium Succinate (Solu-Medrol -) 40 mg IVPUSH Q8H-IV [facility] Last Admin: 04/05/18 09:19 Dose: 40 mg Mirtazapine (Remeron -) 15 mg PEG HS [facility] Last Admin: 04/04/18 21:41 Dose: 15 mg Raltegravir (Isentress -) 400 mg NR BID [facility] Last Admin: 04/05/18 09:18 Dose: 400 mg Sertraline HCl (Zoloft -) 50 mg PO DAILY [facility] Last Admin: 04/05/18 09:19 Dose: 50 mg Tramadol HCl (Ultram -) 50 mg PO Q6H PRN PRN Reason: PAIN LEVEL 4 - 6 Last Admin: 04/05/18 06:08 Dose: 50 mg Zolpidem Tartrate (Ambien -) 5 mg PO HS PRN PRN Reason: INSOMNIA - Objective Vital Signs: Vital Signs Temperature 98.6 F 04/05/18 09:00 Pulse Rate 91 H 04/05/18 09:00 Respiratory Rate 26 H 04/05/18 09:00 Blood Pressure 113/73 04/05/18 09:00 O2 Sat by Pulse Oximetry (%) 90 L 04/05/18 09:00 Constitutional: Yes: Calm, Thin Eyes: Yes: WNL HENT: Yes: WNL Neck: Yes: Supple (TRACH) Cardiovascular: Yes: Regular Rate and Rhythm, S1, S2 Respiratory: Yes: Rhonchi (SCATTERED ASAEL RHONCHI) Gastrointestinal: Yes: Normal Bowel Sounds, Soft Extremities: Yes: WNL Edema: No Labs: CBC, BMP 04/05/18 05:30 04/05/18 05:30 INR, PTT INR 1.22 (0.83-1.09) H 03/28/18 12:35 - ....Imaging Chest X-ray: Report Reviewed (PLEURAL EFFUSIONS R>L), Image Reviewed Problem List - Problems (1) Acute on chronic respiratory failure with hypoxia and hypercapnia Code(s): J96.21 - ACUTE AND CHRONIC RESPIRATORY FAILURE WITH HYPOXIA; J96.22 - ACUTE AND CHRONIC RESPIRATORY FAILURE WITH HYPERCAPNIA (2) Laryngeal carcinoma Code(s): C32.9 - MALIGNANT NEOPLASM OF LARYNX, UNSPECIFIED (3) Pneumonia Code(s): J18.9 - PNEUMONIA, UNSPECIFIED ORGANISM Qualifiers: Pneumonia type: due to unspecified organism Laterality: bilateral Lung location: unspecified part of lung Qualified Code(s): J18.9 - Pneumonia, unspecified organism (4) AIDS Code(s): B20 - HUMAN IMMUNODEFICIENCY VIRUS [HIV] DISEASE (5) Difficulty breathing Code(s): R06.89 - OTHER ABNORMALITIES OF BREATHING (6) HIV (human immunodeficiency virus infection) Code(s): Z21 - ASYMPTOMATIC HUMAN IMMUNODEFICIENCY VIRUS INFECTION STATUS (7) Head and neck cancer Code(s): C76.0 - MALIGNANT NEOPLASM OF HEAD, FACE AND NECK Assessment/Plan A/P Acute on Chronic Hypoxic Respiratory Failure improving Pneumonia ARDS resolving Klebsiella Bacteremia Sepsis HIV/AIDS h/o Laryngeal Ca s/p trach/PEG - antibiotics - continue bacid - inhaled bronchodilators with mucomyst - pain control - chest PT/bed percussion - taper Fio2 to keep SpO2 >90% - continue ART - DVT prophylaxis - possible thoracentesis - steroid taper DR MAYER
--- NOTE | 2018-04-05 13:42 | PN ---
Physical Exam: SUBJECTIVE: Patient seen and examined. She says she had difficulty breathing yesterday and last night after being exposed to perfume on her visitors. OBJECTIVE: Vital Signs Period Temp Pulse Resp BP Sys/Lisa Pulse Ox Last 24 Hr 97.6 F-98.6 F 91-109 18-26 113-141/64-87 90-93 GENERAL: The patient is awake, alert, and fully oriented, in no acute distress. LUNGS: Bilateral rhonchi. HEART: Regular rate and rhythm, S1, S2 without murmur, rub or gallop. ABDOMEN: Soft, nontender, nondistended, normoactive bowel sounds, no guarding, no rebound, no hepatosplenomegaly, no masses. EXTREMITIES: 2+ pulses, warm, well-perfused, no edema. Laboratory Results - last 24 hr 04/04/18 04/05/18 04/05/18 05:30 05:30 05:30 WBC 8.7 RBC 3.53 L Hgb 11.5 Hct 34.9 MCV 98.9 H MCH 32.5 MCHC 32.9 RDW 14.9 Plt Count 377 MPV 8.3 Absolute Neuts (auto) 7.2 Neutrophils % 83.4 H Lymphocytes % 11.3 D Monocytes % 4.3 D Eosinophils % 1.0 Basophils % 0.0 Nucleated RBC % 0 Platelet Estimate Adequate Sodium 144 Potassium 4.0 Chloride 103 Carbon Dioxide 32 Anion Gap 9 BUN 19 H Creatinine 0.3 L Creat Clearance w eGFR > 60 POC Glucometer Random Glucose 105 Calcium 8.5 04/05/18 05:33 WBC RBC Hgb Hct MCV MCH MCHC RDW Plt Count MPV Absolute Neuts (auto) Neutrophils % Lymphocytes % Monocytes % Eosinophils % Basophils % Nucleated RBC % Platelet Estimate Sodium Potassium Chloride Carbon Dioxide Anion Gap BUN Creatinine Creat Clearance w eGFR POC Glucometer 139 Random Glucose Calcium Active Medications Generic Name Dose Route Start Last Admin Trade Name Freq PRN Reason Stop Dose Admin Acetaminophen 650 mg 04/03/18 15:41 04/04/18 10:34 Tylenol - PO 650 mg Q6H PRN Administration FEVER Acetylcysteine 200 mg 04/03/18 10:30 04/05/18 10:25 Mucomyst 20 Oral / Inh Use Only* NEB 200 mg Q4HWA RAZ Administration Albuterol Sulfate 1 amp 04/03/18 10:30 04/05/18 10:25 Ventolin 0.083% Nebulizer Soln - NEB 1 amp Q4HWA RAZ Administration Budesonide/Formoterol Fumarate 2 puff 04/03/18 22:00 04/05/18 09:19 Symbicort 160/4.5mcg - IH 2 puff BID RAZ Administration Clonazepam 0.25 mg 04/03/18 11:59 04/05/18 06:08 Klonopin - PO 0.25 mg BID PRN Administration ANXIETY Emtricitabine/Tenofovir 1 tab 04/04/18 10:00 04/05/18 09:18 Truvada PO 1 tab DAILY RAZ Administration Etravirine 100 mg 04/03/18 18:30 04/05/18 09:16 Intelence - PO 100 mg BIDPC RAZ Administration Fluticasone Propionate 1 spray 04/04/18 10:00 04/05/18 09:18 Flonase - NS 1 spray DAILY RAZ Administration Gabapentin 250 mg 04/03/18 22:00 04/05/18 09:21 Neurontin Oral Liquid - PEG 250 mg BID RAZ Administration Heparin Sodium (Porcine) 5,000 unit 04/03/18 22:00 04/05/18 05:35 Heparin - SQ 5,000 unit TID RAZ Administration Famotidine/Sodium Chloride 20 mg in 50 mls @ 100 mls/hr 04/03/18 22:00 09:19 Pepcid 20 Mg Premixed Ivpb - IVPB 100 mls/hr BID RAZ Administration Cefazolin Sodium 1 gm/ 50 mls @ 100 mls/hr 04/03/18 18:00 04/05/18 09:17 Dextrose IVPB 100 mls/hr Q8H-IV RAZ Administration Lactobacillus Acidophilus 1 tab 04/03/18 10:45 04/05/18 09:17 Bacid - PO 1 tab DAILY RAZ Administration Melatonin 5 mg 04/03/18 15:41 Melatonin PO HS PRN INSOMNIA Methylprednisolone Sodium Succinate 40 mg 04/05/18 10:00 04/05/18 10:36 Solu-Medrol - IVPUSH Not Given BID RAZ Mirtazapine 15 mg 04/03/18 22:00 04/04/18 21:41 Remeron - PEG 15 mg HS RAZ Administration Raltegravir 400 mg 04/03/18 22:00 04/05/18 09:18 Isentress - NR 400 mg BID RAZ Administration Sertraline HCl 50 mg 04/04/18 10:00 04/05/18 09:19 Zoloft - PO 50 mg DAILY RAZ Administration Tramadol HCl 50 mg 04/03/18 12:02 04/05/18 06:08 Ultram - PO 50 mg Q6H PRN Administration PAIN LEVEL 4 - 6 Zolpidem Tartrate 5 mg 04/04/18 12:17 Ambien - PO HS PRN INSOMNIA ASSESSMENT/PLAN: This is a 47 year old woman with a history of AIDS, laryngeal cancer, trach, PEG , hepatitis B, failure to thrive who presented to the ED with nausea, vomiting, diarrhea, cough, and fever. 1. Gram negative sepsis secondary to pneumonia with Klebsiella bacteremia - Continue Cefazolin - Blood cultures 03/30 negative after 5 days, 04/03 negative after 48 hours - Bilateral pleural effusions persist - consider thoracentesis 2. Hypokalemia - Improved 3. Acute exacerbation of asthma/COPD - Continue SoluMedrol taper, Symbicort, Mucomyst, albuterol nebs 4. Acute hypoxic respiratory failure - Improved 5. Chronic hypoxic respiratory failure - Continue oxygen via trach 6. Diarrhea - Improved - Stool O&P pending 7. 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 AIDS - Continue Isentress, Intelence, Truvada 9. Anxiety - Continue Zoloft, Klonopin as needed Visit type - Emergency Visit Emergency Visit: Yes ED Registration Date: 03/28/18 Care time: The patient presented to the Emergency Department on the above date and was hospitalized for further evaluation of their emergent condition. - New Patient This patient is new to me today: No - Critical Care Critical Care patient: No - Discharge Referral Referred to [facility] Med P.C.: No
[2018-04-05] MEDS: MIRTAZAPINE 15 MG TABLET (FP) PEG SCH (23:59)
[2018-04-06] MEDS ORDERED: DEXTROSE 5%-WATER - 50 ML IVPB ONE ×3 (02:08→16:51)
[2018-04-06] MEDS ORDERED: ceFAZolin SODIUM 1 GM VIAL ONE ×3 (02:08→16:51)
[2018-04-06] MEDS: CEFAZOLIN 1 GM in DEXTROSE 5%-WATER - 50 ML IVPB SCH ×3 (02:34→18:53)
[2018-04-06] MEDS: traMADol HCL 50 MG TABLET PO PRN ×2 (04:03→16:57)
[2018-04-06] MEDS ORDERED: PT OWN MED DRAWER 7, Y5N ONE ×3 (05:56→16:53)
[2018-04-06] MEDS ORDERED: guaiFENesin 200 MG/10 ML 10 ML UNIT-DOSE CUPS PO ONE (06:00)
[2018-04-06] MEDS: HEPARIN NA (PORCINE) 5,000 UNITS/ML 1ML VIAL SQ SCH ×3 (06:17→21:04)
[2018-04-06] MEDS: ALBUTEROL SO4 0.083% IH SOL 2.5 MG/3 ML VIAL.NEB. NEB SCH ×4 (06:56→22:10)
[2018-04-06] MEDS: ACETYLCYSTEINE 20% 200MG/ML 4 ML VIAL *FOR ORAL / INH USE ONLY NEB SCH ×4 (06:56→22:10)
[2018-04-06] MEDS: LACTOBACILLUS ACIDOPHILUS 1 TABLET PO SCH (10:43)
[2018-04-06] MEDS: RALTEGRAVIR POTASSIUM 400 MG TAB NR SCH ×2 (10:44→22:38)
[2018-04-06] MEDS: SERTRALINE HCL 50 MG TABLET (FP) PO SCH (10:44)
[2018-04-06] MEDS: FAMOTIDINE 20 MG/50 ML IVPB 20 MG/50 ML MG IVPB SCH ×2 (10:45→21:06)
[2018-04-06] MEDS: GABAPENTIN 250 MG/5 ML ORAL SOLUTION, 470 ML BOTTLE PEG SCH ×2 (10:45→22:38)
[2018-04-06] MEDS: methylPREDNISolone NA SUCC 40 MG/1 ML VIAL IVPUSH SCH ×2 (10:46→21:04)
[2018-04-06] MEDS: EMTRICITABINE 200MG/TENOFOVIR 300MG PO SCH (10:46)
[2018-04-06] MEDS: BUDESONIDE/FORMETEROL FUMARATE 160/4.5 mcg INHALER IH SCH ×2 (11:00→22:43)
--- NOTE | 2018-04-06 11:15 | PN ---
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 Pt is tolerating trach collar, finger occluding the trach to the provox to speak. Air leakage around trach, padded with gauze.. Pt normally uses a size 10 trach Dysphonic voice, which is pt's baseline. Coughing less. Receiving GT feedings. Discussed plan for MBS. We agreed to perform once size 10 is obtained, for best result of MBS. Continue GT feedings. Plan:MBS done as out pt. Pt understands that she needs to be strictly NPO until MBS can be done.
--- NOTE | 2018-04-06 11:17 | PN ---
Physical Exam: SUBJECTIVE: Patient seen and examined at the bedside. Having anxiety today over respiratory treatments, multiple complaints. Being seen by patient advocated. OBJECTIVE: dietary follow up needed for feeds, pt currently taking boosts supplements Vital Signs Period Temp Pulse Resp BP Sys/Lisa Pulse Ox Last 24 Hr 98.2 F-98.9 F 89-112 20-22 122-158/74-98 92 GENERAL: The patient is awake, alert, and fully oriented, in no acute distress. anxious HEAD: Normal with no signs of trauma, on ventilator via trach EYES: PERRL, extraocular movements intact, sclera anicteric, conjunctiva clear. No ptosis. ENT: Ears normal, nares patent, oropharynx clear without exudates NECK: Trachea midline, full range of motion, supple. 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 ABDOMEN: Soft, nontender, nondistended, g tube PSYCH: anxious SKIN: Warm, dry, normal turgor, no rashes or lesions noted Active Medications Generic Name Dose Route Start Last Admin Trade Name Freq PRN Reason Stop Dose Admin Acetaminophen 650 mg 04/03/18 15:41 04/04/18 10:34 Tylenol - PO 650 mg Q6H PRN Administration FEVER Acetylcysteine 200 mg 04/03/18 10:30 04/06/18 10:25 Mucomyst 20 Oral / Inh Use Only* NEB 200 mg Q4HWA RAZ Administration Albuterol Sulfate 1 amp 04/03/18 10:30 04/06/18 10:25 Ventolin 0.083% Nebulizer Soln - NEB 1 amp Q4HWA RAZ Administration Budesonide/Formoterol Fumarate 2 puff 04/03/18 22:00 04/05/18 23:51 Symbicort 160/4.5mcg - IH 2 puff BID RAZ Administration Clonazepam 0.25 mg 04/03/18 11:59 04/05/18 06:08 Klonopin - PO 0.25 mg BID PRN Administration ANXIETY Emtricitabine/Tenofovir 1 tab 04/04/18 10:00 04/06/18 10:46 Truvada PO 1 tab DAILY RAZ Administration Etravirine 100 mg 04/03/18 18:30 04/05/18 17:34 Intelence - PO 100 mg BIDPC RAZ Administration Fluticasone Propionate 1 spray 04/04/18 10:00 04/05/18 09:18 Flonase - NS 1 spray DAILY RAZ Administration Gabapentin 250 mg 04/03/18 22:00 04/06/18 10:45 Neurontin Oral Liquid - PEG 250 mg BID RAZ Administration Heparin Sodium (Porcine) 5,000 unit 04/03/18 22:00 04/06/18 06:17 Heparin - SQ 5,000 unit TID RAZ Administration Famotidine/Sodium Chloride 20 mg in 50 mls @ 100 mls/hr 04/03/18 22:00 10:45 Pepcid 20 Mg Premixed Ivpb - IVPB 100 mls/hr BID RAZ Administration Cefazolin Sodium 1 gm/ 50 mls @ 100 mls/hr 04/03/18 18:00 04/06/18 10:44 Dextrose IVPB 100 mls/hr Q8H-IV RAZ Administration Lactobacillus Acidophilus 1 tab 04/03/18 10:45 04/06/18 10:43 Bacid - PO 1 tab DAILY RAZ Administration Melatonin 5 mg 04/03/18 15:41 Melatonin PO HS PRN INSOMNIA Methylprednisolone Sodium Succinate 40 mg 04/05/18 10:00 04/06/18 10:46 Solu-Medrol - IVPUSH 40 mg BID RAZ Administration Mirtazapine 15 mg 04/03/18 22:00 04/05/18 23:59 Remeron - PEG 15 mg HS RAZ Administration Raltegravir 400 mg 04/03/18 22:00 04/06/18 10:44 Isentress - NR 400 mg BID RAZ Administration Sertraline HCl 50 mg 04/04/18 10:00 04/06/18 10:44 Zoloft - PO 50 mg DAILY RAZ Administration Tramadol HCl 50 mg 04/03/18 12:02 04/06/18 04:03 Ultram - PO 50 mg Q6H PRN Administration PAIN LEVEL 4 - 6 Zolpidem Tartrate 5 mg 04/04/18 12:17 Ambien - PO HS PRN INSOMNIA ASSESSMENT/PLAN: Patient is a 47 year old female with a significant past medical history of HIV, laryngeal cancer, chronic trach, PEG tube, hepatitis B and failure to thrive. Patient presented to the ED with symptoms of nausea, vomiting, diarrhea, cough and fever. ID: Gram negative sepsis in the setting of HIV and laryngeal cancer: Pneumonia and + blood cultures (klebsiella): Chronic trach/shortness of breath/Asthma/COPD: Blood cultures 03/28 +kleb, repeat blood cultures negative to date. on Cefazolin antibiotics. patient on trach collar. No fevers recorded. Pulm: Pneumonia/COPD exacerbation. On bronchodilators and chest percussion. Monitor airway to maintain stable oxygen levels of >92%. Bilateral pleural effusions. followed by pulmonary, may need thoracentesis per pulm. right >left. Onc: Laryngeal carcinoma, has chronic trach and feeds via peg tube. Needs MBS to evaluate swallowing function. Seen by speech and swallow. Pt made aware that MBS could not be done until patient has her trach changed and provox can be used. On GT feedings. dietary follow up needed on feeds. HIV: Continue home antiviral therapy. Neuro Anxiety history. Monitor for increased anxiety. GI Diarrhea: stool studies uncollected. prophy: Heparin TID swallow evaluation, will need MBS fen GT feeds, given boost supplements via gravity. dietary consulted needed for continuous feeds. monitor electrolytes On continuous pulse monitoring. Visit type - Emergency Visit Emergency Visit: Yes ED Registration Date: 03/28/18 Care time: The patient presented to the Emergency Department on the above date and was hospitalized for further evaluation of their emergent condition. - New Patient This patient is new to me today: No - Critical Care Critical Care patient: No - Discharge Referral Referred to [facility] Med P.C.: No
--- NOTE | 2018-04-06 11:31 | PN ---
Progress Note, Physician History of Present Illness: pulmonary alert,more congested today,o2 sat 95% - Current Medication List Current Medications: Active Medications Acetaminophen (Tylenol -) 650 mg PO Q6H PRN PRN Reason: FEVER Last Admin: 04/04/18 10:34 Dose: 650 mg Acetylcysteine (Mucomyst 20 Oral / Inh Use Only*) 200 mg NEB Q4HWA [facility] Last Admin: 04/06/18 10:25 Dose: 200 mg Albuterol Sulfate (Ventolin 0.083% Nebulizer Soln -) 1 amp NEB Q4HWA [facility] Last Admin: 04/06/18 10:25 Dose: 1 amp Budesonide/Formoterol Fumarate (Symbicort 160/4.5mcg -) 2 puff IH BID [facility] Last Admin: 04/05/18 23:51 Dose: 2 puff Clonazepam (Klonopin -) 0.25 mg PO BID PRN PRN Reason: ANXIETY Last Admin: 04/05/18 06:08 Dose: 0.25 mg Emtricitabine/Tenofovir (Truvada) 1 tab PO DAILY [facility] Last Admin: 04/06/18 10:46 Dose: 1 tab Etravirine (Intelence -) 100 mg PO BIDPC [facility] Last Admin: 04/05/18 17:34 Dose: 100 mg Fluticasone Propionate (Flonase -) 1 spray NS DAILY [facility] Last Admin: 04/05/18 09:18 Dose: 1 spray Gabapentin (Neurontin Oral Liquid -) 250 mg PEG BID [facility] Last Admin: 04/06/18 10:45 Dose: 250 mg Heparin Sodium (Porcine) (Heparin -) 5,000 unit SQ TID [facility] Last Admin: 04/06/18 06:17 Dose: 5,000 unit Famotidine/Sodium Chloride (Pepcid 20 Mg Premixed Ivpb -) 20 mg in 50 mls @ 100 mls/hr IVPB BID [facility] Last Admin: 04/06/18 10:45 Dose: 100 mls/hr Cefazolin Sodium 1 gm/ (Dextrose) 50 mls @ 100 mls/hr IVPB Q8H-IV [facility] Last Admin: 04/06/18 10:44 Dose: 100 mls/hr Lactobacillus Acidophilus (Bacid -) 1 tab PO DAILY [facility] Last Admin: 04/06/18 10:43 Dose: 1 tab Melatonin (Melatonin) 5 mg PO HS PRN PRN Reason: INSOMNIA Methylprednisolone Sodium Succinate (Solu-Medrol -) 40 mg IVPUSH BID [facility] Last Admin: 04/06/18 10:46 Dose: 40 mg Mirtazapine (Remeron -) 15 mg PEG HS [facility] Last Admin: 04/05/18 23:59 Dose: 15 mg Raltegravir (Isentress -) 400 mg NR BID [facility] Last Admin: 04/06/18 10:44 Dose: 400 mg Sertraline HCl (Zoloft -) 50 mg PO DAILY [facility] Last Admin: 04/06/18 10:44 Dose: 50 mg Tramadol HCl (Ultram -) 50 mg PO Q6H PRN PRN Reason: PAIN LEVEL 4 - 6 Last Admin: 04/06/18 04:03 Dose: 50 mg Zolpidem Tartrate (Ambien -) 5 mg PO HS PRN PRN Reason: INSOMNIA - Objective Vital Signs: Vital Signs Temperature 98.7 F 04/06/18 02:38 Pulse Rate 89 04/06/18 06:00 Respiratory Rate 22 04/06/18 06:00 Blood Pressure 158/90 04/06/18 06:00 O2 Sat by Pulse Oximetry (%) 92 L 04/05/18 20:50 Constitutional: Yes: Calm, Thin Eyes: Yes: WNL HENT: Yes: WNL Neck: Yes: WNL Cardiovascular: Yes: Regular Rate and Rhythm, S1, S2 Respiratory: Yes: Rhonchi, Wheezes (bilateral wheezes and rhonchi) Gastrointestinal: Yes: Normal Bowel Sounds, Soft Extremities: Yes: WNL Edema: No Labs: CBC, BMP 04/05/18 05:30 04/05/18 05:30 INR, PTT INR 1.22 (0.83-1.09) H 03/28/18 12:35 Problem List - Problems (1) Acute on chronic respiratory failure with hypoxia and hypercapnia Code(s): J96.21 - ACUTE AND CHRONIC RESPIRATORY FAILURE WITH HYPOXIA; J96.22 - ACUTE AND CHRONIC RESPIRATORY FAILURE WITH HYPERCAPNIA (2) Laryngeal carcinoma Code(s): C32.9 - MALIGNANT NEOPLASM OF LARYNX, UNSPECIFIED (3) Pneumonia Code(s): J18.9 - PNEUMONIA, UNSPECIFIED ORGANISM Qualifiers: Pneumonia type: due to unspecified organism Laterality: bilateral Lung location: unspecified part of lung Qualified Code(s): J18.9 - Pneumonia, unspecified organism (4) AIDS Code(s): B20 - HUMAN IMMUNODEFICIENCY VIRUS [HIV] DISEASE (5) Difficulty breathing Code(s): R06.89 - OTHER ABNORMALITIES OF BREATHING (6) HIV (human immunodeficiency virus infection) Code(s): Z21 - ASYMPTOMATIC HUMAN IMMUNODEFICIENCY VIRUS INFECTION STATUS (7) Head and neck cancer Code(s): C76.0 - MALIGNANT NEOPLASM OF HEAD, FACE AND NECK Assessment/Plan A/P Acute on Chronic Hypoxic Respiratory Failure improving Pneumonia ARDS resolving Klebsiella Bacteremia Sepsis HIV/AIDS h/o Laryngeal Ca s/p trach/PEG - antibiotics - continue bacid - inhaled bronchodilators with mucomyst - pain control - chest PT/bed percussion - taper Fio2 to keep SpO2 >90% - continue ART - DVT prophylaxis - possible thoracentesis - steroids - chest x-ray today DR MAYER
[2018-04-06] MEDS: ETRAVIRINE 100 MG TABLET PO SCH ×2 (13:01→22:39)
[2018-04-06] MEDS: clonazePAM 0.5 MG TABLET PO PRN (15:25)
[2018-04-06] MEDS: FLUTICASONE PROP 0.05% 16 GM NASAL SPRAY NS SCH (15:44)
--- NOTE | 2018-04-06 18:21 | PN ---
Progress Note (short form) - Note Progress Note: Asked to evaluate patient for change of G-Tube. Ms. diaz complains that the tube has been getting more easily clogged with feeding. The feeding adapter on the tube had been changed not too long ago. On exam: G-Tube in place in upper abdomen. no peripeg induration/erythema or fluctuance. Using traction, the G-tube was removed and the patient tolerated the procedure well. A 20Fr. [employer] balloon replacement G-Tube was placed without difficulty and balloon was filled with 6cc sterile water. It was noted to be at the 2cm leidy at the level of the abdominal wall. G-Tube study ordered Aspiration precautions
[2018-04-06] MEDS: MIRTAZAPINE 15 MG TABLET (FP) PEG SCH (21:04)
[2018-04-06] MEDS: ACETAMINOPHEN 325 MG TABLET (FP) PO PRN (21:04)
[2018-04-06] MEDS: ZOLPIDEM TARTRATE 5 MG TABLET PO PRN (22:37)
[2018-04-07] MEDS ORDERED: ceFAZolin SODIUM 1 GM VIAL ONE ×3 (02:17→17:06)
[2018-04-07] MEDS ORDERED: DEXTROSE 5%-WATER - 50 ML IVPB ONE ×3 (02:18→17:06)
[2018-04-07] MEDS: CEFAZOLIN 1 GM in DEXTROSE 5%-WATER - 50 ML IVPB SCH ×3 (02:32→17:48)
[2018-04-07] MEDS: traMADol HCL 50 MG TABLET PO PRN ×4 (03:47→21:50)
[2018-04-07] MEDS: ACETYLCYSTEINE 20% 200MG/ML 4 ML VIAL *FOR ORAL / INH USE ONLY NEB SCH ×5 (06:30→21:45)
[2018-04-07] MEDS: ALBUTEROL SO4 0.083% IH SOL 2.5 MG/3 ML VIAL.NEB. NEB SCH ×5 (06:30→21:45)
[2018-04-07] MEDS: HEPARIN NA (PORCINE) 5,000 UNITS/ML 1ML VIAL SQ SCH ×3 (06:46→21:17)
[2018-04-07] MEDS ORDERED: PT OWN MED DRAWER 7, Y5N ONE (09:28)
[2018-04-07] MEDS: ETRAVIRINE 100 MG TABLET PO SCH ×2 (09:42→17:48)
[2018-04-07] MEDS: LACTOBACILLUS ACIDOPHILUS 1 TABLET PO SCH (09:43)
[2018-04-07] MEDS: FLUTICASONE PROP 0.05% 16 GM NASAL SPRAY NS SCH (09:43)
[2018-04-07] MEDS: RALTEGRAVIR POTASSIUM 400 MG TAB NR SCH ×2 (09:43→21:19)
[2018-04-07] MEDS: GABAPENTIN 250 MG/5 ML ORAL SOLUTION, 470 ML BOTTLE PEG SCH ×2 (09:44→21:19)
[2018-04-07] MEDS: EMTRICITABINE 200MG/TENOFOVIR 300MG PO SCH (09:44)
[2018-04-07] MEDS: clonazePAM 0.5 MG TABLET PO PRN ×2 (09:45→21:22)
[2018-04-07] MEDS: SERTRALINE HCL 50 MG TABLET (FP) PO SCH (09:45)
[2018-04-07 10:17] LABS: BASO % 0.2 % (0-2.0); EOS % 0.2 % (0-4.5); HEMATOCRIT 34.9 % (32.4-45.2); HEMOGLOBIN 11.1 GM/dL (10.7-15.3); LYMPH % 13.6 % (8-40); MCH 31.4 pg (25.7-33.7); MCHC 31.9 g/dl (32.0-36.0); MEAN CELL VOLUME 98.5 fl (80-96); MEAN PLT VOLUME 8.3 fl (7.5-11.1); MONO % 5.6 % (3.8-10.2); NEUT % 80.4 % (42.8-82.8); PLATELET COUNT 444 K/MM3 (134-434); RBC 3.54 M/mm3 (3.60-5.2); RDW 14.6 % (11.6-15.6); WHITE BLOOD COUNT 13.6 K/mm3 (4.0-10.0)
[2018-04-07 10:22] LABS: BLOOD UREA NITROGEN 22 mg/dL (7-18); CHLORIDE 103 mmol/L (98-107); CO2 31 mmol/L (21-32); GLUCOSE,RANDOM 104 mg/dL (74-106); POTASSIUM 3.8 mmol/L (3.5-5.1); SODIUM 142 mmol/L (136-145)
[2018-04-07 10:23] LABS: ALBUMIN 2.7 g/dl (3.4-5.0); ANION GAP 8 MMOL/L (8-16); CALCIUM 8.9 mg/dL (8.5-10.1); MAGNESIUM 2.6 mg/dL (1.8-2.4)
[2018-04-07] MEDS: methylPREDNISolone NA SUCC 40 MG/1 ML VIAL IVPUSH SCH ×2 (10:42→21:16)
[2018-04-07] MEDS: BUDESONIDE/FORMETEROL FUMARATE 160/4.5 mcg INHALER IH SCH ×2 (10:44→21:20)
[2018-04-07] MEDS: FAMOTIDINE 20 MG/50 ML IVPB 20 MG/50 ML MG IVPB SCH ×2 (10:44→21:17)
--- NOTE | 2018-04-07 10:53 | PN ---
Progress Note, Physician History of Present Illness: PULMONARY ALERT,FEELING BETTER,LESS DYSPNEIC,LESS CONGESTED - Current Medication List Current Medications: Active Medications Acetaminophen (Tylenol -) 650 mg PO Q6H PRN PRN Reason: FEVER Last Admin: 04/06/18 21:04 Dose: 650 mg Acetylcysteine (Mucomyst 20 Oral / Inh Use Only*) 200 mg NEB Q4HWA [facility] Last Admin: 04/07/18 06:30 Dose: 200 mg Albuterol Sulfate (Ventolin 0.083% Nebulizer Soln -) 1 amp NEB Q4HWA [facility] Last Admin: 04/07/18 06:30 Dose: 1 amp Budesonide/Formoterol Fumarate (Symbicort 160/4.5mcg -) 2 puff IH BID [facility] Last Admin: 04/07/18 10:44 Dose: 2 puff Clonazepam (Klonopin -) 0.25 mg PO BID PRN PRN Reason: ANXIETY Last Admin: 04/07/18 09:45 Dose: 0.25 mg Emtricitabine/Tenofovir (Truvada) 1 tab PO DAILY [facility] Last Admin: 04/07/18 09:44 Dose: 1 tab Etravirine (Intelence -) 100 mg PO BIDPC [facility] Last Admin: 04/07/18 09:42 Dose: 100 mg Fluticasone Propionate (Flonase -) 1 spray NS DAILY [facility] Last Admin: 04/07/18 09:43 Dose: 1 spray Gabapentin (Neurontin Oral Liquid -) 250 mg PEG BID [facility] Last Admin: 04/07/18 09:44 Dose: 250 mg Heparin Sodium (Porcine) (Heparin -) 5,000 unit SQ TID [facility] Last Admin: 04/07/18 06:46 Dose: 5,000 unit Famotidine/Sodium Chloride (Pepcid 20 Mg Premixed Ivpb -) 20 mg in 50 mls @ 100 mls/hr IVPB BID [facility] Last Admin: 04/07/18 10:44 Dose: 100 mls/hr Cefazolin Sodium 1 gm/ (Dextrose) 50 mls @ 100 mls/hr IVPB Q8H-IV [facility] Last Admin: 04/07/18 10:42 Dose: 100 mls/hr Lactobacillus Acidophilus (Bacid -) 1 tab PO DAILY [facility] Last Admin: 04/07/18 09:43 Dose: 1 tab Melatonin (Melatonin) 5 mg PO HS PRN PRN Reason: INSOMNIA Methylprednisolone Sodium Succinate (Solu-Medrol -) 40 mg IVPUSH BID [facility] Last Admin: 04/07/18 10:42 Dose: 40 mg Mirtazapine (Remeron -) 15 mg PEG HS [facility] Last Admin: 04/06/18 21:04 Dose: 15 mg Raltegravir (Isentress -) 400 mg NR BID [facility] Last Admin: 04/07/18 09:43 Dose: 400 mg Sertraline HCl (Zoloft -) 50 mg PO DAILY [facility] Last Admin: 04/07/18 09:45 Dose: 50 mg Tramadol HCl (Ultram -) 50 mg PO Q6H PRN PRN Reason: PAIN LEVEL 4 - 6 Last Admin: 04/07/18 09:42 Dose: 50 mg Zolpidem Tartrate (Ambien -) 5 mg PO HS PRN PRN Reason: INSOMNIA Last Admin: 04/06/18 22:37 Dose: 5 mg - Objective Vital Signs: Vital Signs Temperature 98.4 F 04/07/18 06:00 Pulse Rate 82 04/07/18 06:00 Respiratory Rate 20 04/07/18 06:00 Blood Pressure 125/78 04/07/18 06:00 O2 Sat by Pulse Oximetry (%) 92 L 04/06/18 21:00 Constitutional: Yes: Calm, Thin Eyes: Yes: WNL HENT: Yes: WNL Neck: Yes: Supple (TRACH) Cardiovascular: Yes: Regular Rate and Rhythm, S1, S2 Respiratory: Yes: Rhonchi (SCATTTERED ASAEL RHONCHI) Gastrointestinal: Yes: Normal Bowel Sounds, Soft Extremities: Yes: WNL Edema: No Labs: CBC, BMP 04/07/18 09:45 04/07/18 09:45 INR, PTT INR 1.22 (0.83-1.09) H 03/28/18 12:35 - ....Imaging Chest X-ray: Report Reviewed, Image Reviewed (ASAEL EFFUSIONS R>L) Problem List - Problems (1) Acute on chronic respiratory failure with hypoxia and hypercapnia Code(s): J96.21 - ACUTE AND CHRONIC RESPIRATORY FAILURE WITH HYPOXIA; J96.22 - ACUTE AND CHRONIC RESPIRATORY FAILURE WITH HYPERCAPNIA (2) Laryngeal carcinoma Code(s): C32.9 - MALIGNANT NEOPLASM OF LARYNX, UNSPECIFIED (3) Pneumonia Code(s): J18.9 - PNEUMONIA, UNSPECIFIED ORGANISM Qualifiers: Pneumonia type: due to unspecified organism Laterality: bilateral Lung location: unspecified part of lung Qualified Code(s): J18.9 - Pneumonia, unspecified organism (4) AIDS Code(s): B20 - HUMAN IMMUNODEFICIENCY VIRUS [HIV] DISEASE (5) Difficulty breathing Code(s): R06.89 - OTHER ABNORMALITIES OF BREATHING (6) HIV (human immunodeficiency virus infection) Code(s): Z21 - ASYMPTOMATIC HUMAN IMMUNODEFICIENCY VIRUS INFECTION STATUS (7) Head and neck cancer Code(s): C76.0 - MALIGNANT NEOPLASM OF HEAD, FACE AND NECK Assessment/Plan A/P Acute on Chronic Hypoxic Respiratory Failure improving Pneumonia ARDS resolving Klebsiella Bacteremia Sepsis HIV/AIDS h/o Laryngeal Ca s/p trach/PEG - antibiotics - continue bacid - inhaled bronchodilators with mucomyst - pain control - chest PT/bed percussion - taper Fio2 to keep SpO2 >90% - continue ART - DVT prophylaxis - possible thoracentesis - steroids - chest x-ray DR MAYER
--- NOTE | 2018-04-07 11:50 | PN ---
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 Educated pt on swallowing anatomy and h/o fpood/drink coming out of trach c/w aspiration. She is in agreement with deferring PO trials, using PEG for nutritional intake, MBS in future as indicated. Pt attempting to order size 10 trach, which is what she uses at home. Reviewed with Nurse charge manager.
--- NOTE | 2018-04-07 13:30 | PN ---
Physical Exam: SUBJECTIVE: Patient seen and examined at the bedside. Feels better today, ambulating in hallways. OBJECTIVE: prosource to be added for additional caloric intake. Vital Signs Period Temp Pulse Resp BP Sys/Lisa Pulse Ox Last 24 Hr 97.3 F-98.4 F 82-100 20-22 123-145/72-91 92 GENERAL: The patient is awake, alert, and fully oriented, in no acute distress. anxious HEAD: Normal with no signs of trauma, on ventilator via trach EYES: PERRL, extraocular movements intact, sclera anicteric, conjunctiva clear. No ptosis. ENT: Ears normal, nares patent, oropharynx clear without exudates NECK: Trachea midline, full range of motion, supple. LUNGS: +congestion on anterior lungs, no wheezing HEART: Regular rate and rhythm 90s on ekg monitor ABDOMEN: Soft, nontender, nondistended, g tube PSYCH: calm, cooperative SKIN: Warm, dry, normal turgor, no rashes or lesions noted Laboratory Results - last 24 hr 04/07/18 04/07/18 09:45 09:45 WBC 13.6 H RBC 3.54 L Hgb 11.1 Hct 34.9 MCV 98.5 H MCH 31.4 MCHC 31.9 L RDW 14.6 Plt Count 444 H MPV 8.3 Absolute Neuts (auto) 10.9 H Neutrophils % 80.4 Lymphocytes % 13.6 D Monocytes % 5.6 Eosinophils % 0.2 Basophils % 0.2 D Nucleated RBC % 0 Sodium 142 Potassium 3.8 Chloride 103 Carbon Dioxide 31 Anion Gap 8 BUN 22 H Random Glucose 104 Calcium 8.9 Magnesium 2.6 H Albumin 2.7 L Active Medications Generic Name Dose Route Start Last Admin Trade Name Freq PRN Reason Stop Dose Admin Acetaminophen 650 mg 04/03/18 15:41 04/06/18 21:04 Tylenol - PO 650 mg Q6H PRN Administration FEVER Acetylcysteine 200 mg 04/03/18 10:30 04/07/18 06:30 Mucomyst 20 Oral / Inh Use Only* NEB 200 mg Q4HWA RAZ Administration Albuterol Sulfate 1 amp 04/03/18 10:30 04/07/18 06:30 Ventolin 0.083% Nebulizer Soln - NEB 1 amp Q4HWA RAZ Administration Budesonide/Formoterol Fumarate 2 puff 04/03/18 22:00 04/07/18 10:44 Symbicort 160/4.5mcg - IH 2 puff BID RAZ Administration Clonazepam 0.25 mg 04/03/18 11:59 04/07/18 09:45 Klonopin - PO 0.25 mg BID PRN Administration ANXIETY Emtricitabine/Tenofovir 1 tab 04/04/18 10:00 04/07/18 09:44 Truvada PO 1 tab DAILY RAZ Administration Etravirine 100 mg 04/03/18 18:30 04/07/18 09:42 Intelence - PO 100 mg BIDPC RAZ Administration Fluticasone Propionate 1 spray 04/04/18 10:00 04/07/18 09:43 Flonase - NS 1 spray DAILY RAZ Administration Gabapentin 250 mg 04/03/18 22:00 04/07/18 09:44 Neurontin Oral Liquid - PEG 250 mg BID RAZ Administration Heparin Sodium (Porcine) 5,000 unit 04/03/18 22:00 04/07/18 06:46 Heparin - SQ 5,000 unit TID RAZ Administration Famotidine/Sodium Chloride 20 mg in 50 mls @ 100 mls/hr 04/03/18 22:00 10:44 Pepcid 20 Mg Premixed Ivpb - IVPB 100 mls/hr BID RAZ Administration Cefazolin Sodium 1 gm/ 50 mls @ 100 mls/hr 04/03/18 18:00 04/07/18 10:42 Dextrose IVPB 100 mls/hr Q8H-IV RAZ Administration Lactobacillus Acidophilus 1 tab 04/03/18 10:45 04/07/18 09:43 Bacid - PO 1 tab DAILY RAZ Administration Melatonin 5 mg 04/03/18 15:41 Melatonin PO HS PRN INSOMNIA Methylprednisolone Sodium Succinate 40 mg 04/05/18 10:00 04/07/18 10:42 Solu-Medrol - IVPUSH 40 mg BID RAZ Administration Mirtazapine 15 mg 04/03/18 22:00 04/06/18 21:04 Remeron - PEG 15 mg HS RAZ Administration Raltegravir 400 mg 04/03/18 22:00 04/07/18 09:43 Isentress - NR 400 mg BID RAZ Administration Sertraline HCl 50 mg 04/04/18 10:00 04/07/18 09:45 Zoloft - PO 50 mg DAILY RAZ Administration Tramadol HCl 50 mg 04/03/18 12:02 04/07/18 09:42 Ultram - PO 50 mg Q6H PRN Administration PAIN LEVEL 4 - 6 Zolpidem Tartrate 5 mg 04/04/18 12:17 04/06/18 22:37 Ambien - PO 5 mg HS PRN Administration INSOMNIA ASSESSMENT/PLAN: Patient is a 47 year old female with a significant past medical history of HIV, laryngeal cancer, chronic trach, PEG tube, hepatitis B and failure to thrive. Patient presented to the ED with symptoms of nausea, vomiting, diarrhea, cough and fever. ID: Gram negative sepsis in the setting of HIV and laryngeal cancer: Blood cultures 03/28 +kleb, repeat blood cultures negative. on Cefazolin antibiotics. Chronic trach/shortness of breath/Asthma/COPD: On scheduled duonebs with mucomyst. continue solumedrol BID. Pulm: Pneumonia/COPD exacerbation. On bronchodilators and chest percussion. Monitor airway to maintain stable oxygen levels of >92%. Bilateral pleural effusions. followed by pulmonary, may need thoracentesis per pulm. right >left. IR consulted for evaluation of possible thoracentesis. Onc: Laryngeal carcinoma, has chronic trach and feeds via peg tube. Needs MBS to evaluate swallowing function. Seen by speech and swallow. Pt made aware that MBS could not be done until patient has her trach changed and provox can be used. On GT feedings. dietary follow up needed on feeds. HIV: Continue home antiviral therapy. Neuro Anxiety history. Monitor for increased anxiety. GI Diarrhea: stool studies uncollected. prophy: Heparin TID swallow evaluation, will need MBS fen GT feeds, given boost supplements via gravity. dietary consulted needed for continuous feeds. monitor electrolytes On continuous pulse monitoring. Visit type - Emergency Visit Emergency Visit: Yes ED Registration Date: 03/28/18 Care time: The patient presented to the Emergency Department on the above date and was hospitalized for further evaluation of their emergent condition. - New Patient This patient is new to me today: No - Critical Care Critical Care patient: No - Discharge Referral Referred to [facility] Med [facility].: No
[2018-04-07 13:40] LABS: ALK PHOS 67 U/L (45-117); BILIRUBIN,TOTAL 0.3 mg/dL (0.2-1.0); CREATININE 0.5 mg/dL (0.55-1.02); SGOT/AST 30 U/L (15-37); SGPT/ALT 36 U/L (12-78); TOT PROT 6.5 g/dl (6.4-8.2)
[2018-04-07] MEDS ORDERED: AMINO ACIDS/PROTEIN HYDROLYS 30 ML LIQUID.PKT PO SCH (17:30)
--- NOTE | 2018-04-07 18:30 | PN ---
Progress Note (short form) - Note Progress Note: overall improved reports intermittent coughing and wheezing Vital Signs Period Temp Pulse Resp BP Sys/Lisa Pulse Ox Last 24 Hr 97.8 F-98.4 F 82-98 20-22 123-157/77-98 92 trach collar cor-rrr lungs bilateral rhonchi abd soft,nt, +GT ext no edema CBC, BMP 04/07/18 09:45 04/07/18 09:45 Microbiology 04/03/18 05:40 Blood - Peripheral Venous Blood Culture - Preliminary NO GROWTH OBTAINED AFTER 96 HOURS, INCUBATION TO CONTINUE FOR 1 DAYS. 04/03/18 05:30 Blood - Peripheral Venous Blood Culture - Preliminary NO GROWTH OBTAINED AFTER 96 HOURS, INCUBATION TO CONTINUE FOR 1 DAYS. 03/30/18 20:30 Blood - Peripheral Venous Blood Culture - Final NO GROWTH AFTER 5 DAYS INCUBATION 03/30/18 18:00 Blood - Peripheral Venous Blood Culture - Final NO GROWTH AFTER 5 DAYS INCUBATION 03/28/18 12:35 Blood - Peripheral Venous Blood Culture - Final Klebsiella Pneumoniae 03/28/18 12:35 Blood - Peripheral Venous Blood Culture - Final Klebsiella Pneumoniae 03/28/18 12:50 Urine - Urine Clean Catch Urine Culture - Final cxray RLL effusion Current Medications Generic Name Dose Route Start Last Admin Trade Name Freq PRN Reason Stop Dose Admin Acetaminophen 650 mg 04/03/18 15:41 04/06/18 21:04 Tylenol - PO 650 mg Q6H PRN Administration FEVER Acetylcysteine 200 mg 04/03/18 10:30 04/07/18 17:56 Mucomyst 20 Oral / Inh Use Only* NEB 200 mg Q4HWA RAZ Administration Albuterol Sulfate 1 amp 04/03/18 10:30 04/07/18 17:56 Ventolin 0.083% Nebulizer Soln - NEB 1 amp Q4HWA RAZ Administration Amino Acids 30 ml 04/07/18 17:30 04/07/18 17:49 Prosource No Carb Liquid Pkt PO 30 ml BID@0800,1730 RAZ Administration Budesonide/Formoterol Fumarate 2 puff 04/03/18 22:00 04/07/18 10:44 Symbicort 160/4.5mcg - IH 2 puff BID RAZ Administration Clonazepam 0.25 mg 04/03/18 11:59 04/07/18 09:45 Klonopin - PO 0.25 mg BID PRN Administration ANXIETY Emtricitabine/Tenofovir 1 tab 04/04/18 10:00 04/07/18 09:44 Truvada PO 1 tab DAILY RAZ Administration Etravirine 100 mg 04/03/18 18:30 04/07/18 17:48 Intelence - PO 100 mg BIDPC RAZ Administration Fluticasone Propionate 1 spray 04/04/18 10:00 04/07/18 09:43 Flonase - NS 1 spray DAILY RAZ Administration Gabapentin 250 mg 04/03/18 22:00 04/07/18 09:44 Neurontin Oral Liquid - PEG 250 mg BID RAZ Administration Heparin Sodium (Porcine) 5,000 unit 04/03/18 22:00 04/07/18 17:49 Heparin - SQ Not Given TID RAZ Famotidine/Sodium Chloride 20 mg in 50 mls @ 100 mls/hr 04/03/18 22:00 10:44 Pepcid 20 Mg Premixed Ivpb - IVPB 100 mls/hr BID RAZ Administration Cefazolin Sodium 1 gm/ 50 mls @ 100 mls/hr 04/03/18 18:00 04/07/18 17:48 Dextrose IVPB 100 mls/hr Q8H-IV RAZ Administration Lactobacillus Acidophilus 1 tab 04/03/18 10:45 04/07/18 09:43 Bacid - PO 1 tab DAILY RAZ Administration Melatonin 5 mg 04/03/18 15:41 Melatonin PO HS PRN INSOMNIA Methylprednisolone Sodium Succinate 40 mg 04/05/18 10:00 04/07/18 10:42 Solu-Medrol - IVPUSH 40 mg BID RAZ Administration Mirtazapine 15 mg 04/03/18 22:00 04/06/18 21:04 Remeron - PEG 15 mg HS ARZ Administration Raltegravir 400 mg 04/03/18 22:00 04/07/18 09:43 Isentress - NR 400 mg BID RAZ Administration Sertraline HCl 50 mg 04/04/18 10:00 04/07/18 09:45 Zoloft - PO 50 mg DAILY RAZ Administration Tramadol HCl 50 mg 04/03/18 12:02 04/07/18 16:06 Ultram - PO 50 mg Q6H PRN Administration PAIN LEVEL 4 - 6 Zolpidem Tartrate 5 mg 04/04/18 12:17 04/06/18 22:37 Ambien - PO 5 mg HS PRN Administration INSOMNIA a/p klebsiella bacteremia/pneumonia day #10 cefazolin- to continue slowly improving for thoracentesis in am HIV- stable-continue meds history of laryngeal cancer
[2018-04-07] MEDS: MIRTAZAPINE 15 MG TABLET (FP) PEG SCH (21:17)
[2018-04-07] MEDS: ZOLPIDEM TARTRATE 5 MG TABLET PO PRN (21:21)
[2018-04-08] MEDS ORDERED: ceFAZolin SODIUM 1 GM VIAL ONE ×4 (01:00→21:58)
[2018-04-08] MEDS ORDERED: DEXTROSE 5%-WATER - 50 ML IVPB ONE ×4 (01:00→21:58)
[2018-04-08] MEDS: CEFAZOLIN 1 GM in DEXTROSE 5%-WATER - 50 ML IVPB SCH ×3 (02:00→18:22)
--- NOTE | 2018-04-08 03:17 | HOSP ---
Subjective - Review of Symptoms Events since last encounter: Hospitalist Encounter Notified by RN that the patient reported having chest pressure earlier this morning, was asked to see the patient for eval. Subjective: Arrived to beside, patient is alert, awake and oriented. Patient reports chest pressure occurs when coughing and deep inspirations Per RN patient has had thick secretions from the Trach A: Patient is a 47 year old female with a significant past medical history of HIV, laryngeal cancer, chronic trach, PEG tube, hepatitis B and failure to thrive. Patient presented to the ED with symptoms of nausea, vomiting, diarrhea, cough and fever. P: EKG- stat Trop I- stat Pulmonary: Yes: Pleuritic Chest Pain Cardiovascular: Yes: Chest Pain Physical Examination Vital Signs: Vital Signs Temperature 98.7 F 04/08/18 01:15 Pulse Rate 102 H 04/08/18 01:15 Respiratory Rate 20 04/08/18 01:15 Blood Pressure 142/87 04/08/18 01:15 O2 Sat by Pulse Oximetry (%) 92 L 04/07/18 21:00 Constitutional: Yes: Anxious, Mild Distress Eyes: Yes: Conjunctiva Clear, PERRL HENT: Yes: WNL, Atraumatic, Normocephalic Neck: Yes: Supple, Other (Trach collar) Cardiovascular: Yes: Regular Rate and Rhythm, S1, S2 Respiratory: Yes: Wheezes, Other (trach collar with humidified O2) Gastrointestinal: Yes: Soft, Other (G tube) Extremities: Yes: WNL Edema: No Peripheral Pulses WNL: Yes Neurological: Yes: Alert, Cran Nerves II-XII Intact ...Motor Strength: WNL Psychiatric: Yes: Alert, Oriented Labs: CBC, BMP 04/07/18 09:45 04/07/18 09:45 Hospitalist Encounter Outcome: Troponin I- neg EKG- reviewed
[2018-04-08] MEDS: HEPARIN NA (PORCINE) 5,000 UNITS/ML 1ML VIAL SQ SCH ×2 (06:00→16:10)
[2018-04-08] MEDS: ACETYLCYSTEINE 20% 200MG/ML 4 ML VIAL *FOR ORAL / INH USE ONLY NEB SCH ×5 (06:15→22:08)
[2018-04-08] MEDS: ALBUTEROL SO4 0.083% IH SOL 2.5 MG/3 ML VIAL.NEB. NEB SCH ×5 (06:15→22:08)
[2018-04-08] MEDS: AMINO ACIDS/PROTEIN HYDROLYS 30 ML LIQUID.PKT GT SCH ×3 (06:28→18:19)
[2018-04-08 06:43] LABS: EOS % 0.1 % (0-4.5); HEMATOCRIT 32.9 % (32.4-45.2); HEMOGLOBIN 10.7 GM/dL (10.7-15.3); LYMPH % 7.3 % (8-40); MCH 32.2 pg (25.7-33.7); MCHC 32.5 g/dl (32.0-36.0); MEAN PLT VOLUME 8.3 fl (7.5-11.1); NEUT % 88.6 % (42.8-82.8); PLATELET COUNT 426 K/MM3 (134-434); RBC 3.32 M/mm3 (3.60-5.2); RDW 14.7 % (11.6-15.6); WHITE BLOOD COUNT 13.6 K/mm3 (4.0-10.0)
[2018-04-08 07:41] LABS: ALBUMIN 2.6 g/dl (3.4-5.0); ANION GAP 9 MMOL/L (8-16); BLOOD UREA NITROGEN 28 mg/dL (7-18); CALCIUM 8.5 mg/dL (8.5-10.1); CHLORIDE 102 mmol/L (98-107); CO2 30 mmol/L (21-32); CREATININE 0.3 mg/dL (0.55-1.02); GLUCOSE,RANDOM 113 mg/dL (74-106); MAGNESIUM 2.6 mg/dL (1.8-2.4); POTASSIUM 4.9 mmol/L (3.5-5.1); SGOT/AST 24 U/L (15-37); SGPT/ALT 32 U/L (12-78); SODIUM 141 mmol/L (136-145); TOT PROT 6.2 g/dl (6.4-8.2)
[2018-04-08 07:44] LABS: ALK PHOS 63 U/L (45-117); BILIRUBIN,TOTAL 0.2 mg/dL (0.2-1.0)
--- NOTE | 2018-04-08 08:15 | PN ---
Physical Exam: SUBJECTIVE: Patient seen and examined at the bedside. Feels better today. Had chest pain overnight, now resolved. trops negative. no further chest discomfort. breathing back to baseline. OBJECTIVE: Vital Signs Period Temp Pulse Resp BP Sys/Lisa Pulse Ox Last 24 Hr 98 F-98.7 F 85-102 20-20 111-157/55-98 92 GENERAL: The patient is awake, alert, and fully oriented, in no acute distress HEAD: Normal with no signs of trauma, trach capped EYES: PERRL, extraocular movements intact, sclera anicteric, conjunctiva clear. No ptosis. ENT: Ears normal, nares patent, oropharynx clear without exudates NECK: Trachea midline, full range of motion, supple. LUNGS: bilateral posterior lungs with scattered rhonchi but overall improving. HEART: Regular rate and rhythm ABDOMEN: Soft, nontender, nondistended, g tube in place, replaced by GI PSYCH: calm, cooperative SKIN: Warm, dry, normal turgor, no rashes or lesions noted Laboratory Results - last 24 hr 04/07/18 04/07/18 04/08/18 09:45 09:45 03:30 WBC 13.6 H RBC 3.54 L Hgb 11.1 Hct 34.9 MCV 98.5 H MCH 31.4 MCHC 31.9 L RDW 14.6 Plt Count 444 H MPV 8.3 Absolute Neuts (auto) 10.9 H Neutrophils % 80.4 Lymphocytes % 13.6 D Monocytes % 5.6 Eosinophils % 0.2 Basophils % 0.2 D Nucleated RBC % 0 Sodium 142 Potassium 3.8 Chloride 103 Carbon Dioxide 31 Anion Gap 8 BUN 22 H Creatinine 0.5 L Creat Clearance w eGFR > 60 Random Glucose 104 Calcium 8.9 Magnesium 2.6 H Total Bilirubin 0.3 AST 30 ALT 36 Alkaline Phosphatase 67 Troponin I < 0.02 Total Protein 6.5 Albumin 2.7 L 04/08/18 04/08/18 05:30 05:30 WBC 13.6 H RBC 3.32 L Hgb 10.7 Hct 32.9 MCV 99.0 H MCH 32.2 MCHC 32.5 RDW 14.7 Plt Count 426 MPV 8.3 Absolute Neuts (auto) 12.1 H Neutrophils % 88.6 H Lymphocytes % 7.3 L D Monocytes % 4.0 Eosinophils % 0.1 Basophils % 0.0 Nucleated RBC % 0 Sodium 141 Potassium 4.9 Chloride 102 Carbon Dioxide 30 Anion Gap 9 BUN 28 H Creatinine 0.3 L Creat Clearance w eGFR > 60 Random Glucose 113 H Calcium 8.5 Magnesium 2.6 H Total Bilirubin 0.2 AST 24 ALT 32 Alkaline Phosphatase 63 Troponin I Total Protein 6.2 L Albumin 2.6 L Active Medications Generic Name Dose Route Start Last Admin Trade Name Freq PRN Reason Stop Dose Admin Acetaminophen 650 mg 04/03/18 15:41 04/06/18 21:04 Tylenol - PO 650 mg Q6H PRN Administration FEVER Acetylcysteine 200 mg 04/03/18 10:30 04/08/18 06:15 Mucomyst 20 Oral / Inh Use Only* NEB 200 mg Q4HWA RAZ Administration Albuterol Sulfate 1 amp 04/03/18 10:30 04/08/18 06:15 Ventolin 0.083% Nebulizer Soln - NEB 1 amp Q4HWA RAZ Administration Amino Acids 30 ml 04/07/18 20:14 04/08/18 06:28 Prosource No Carb Liquid Pkt GT 30 ml BID@0800,1730 RAZ Administration Budesonide/Formoterol Fumarate 2 puff 04/03/18 22:00 04/07/18 21:20 Symbicort 160/4.5mcg - IH 2 puff BID RAZ Administration Clonazepam 0.25 mg 04/03/18 11:59 04/07/18 21:22 Klonopin - PO 0.25 mg BID PRN Administration ANXIETY Emtricitabine/Tenofovir 1 tab 04/04/18 10:00 04/07/18 09:44 Truvada PO 1 tab DAILY RAZ Administration Etravirine 100 mg 04/03/18 18:30 04/07/18 17:48 Intelence - PO 100 mg BIDPC RAZ Administration Fluticasone Propionate 1 spray 04/04/18 10:00 04/07/18 09:43 Flonase - NS 1 spray DAILY RAZ Administration Gabapentin 250 mg 04/03/18 22:00 04/07/18 21:19 Neurontin Oral Liquid - PEG 250 mg BID RAZ Administration Heparin Sodium (Porcine) 5,000 unit 04/03/18 22:00 04/08/18 06:00 Heparin - SQ 5,000 unit TID RAZ Administration Famotidine/Sodium Chloride 20 mg in 50 mls @ 100 mls/hr 04/03/18 22:00 21:17 Pepcid 20 Mg Premixed Ivpb - IVPB 100 mls/hr BID RAZ Administration Cefazolin Sodium 1 gm/ 50 mls @ 100 mls/hr 04/03/18 18:00 04/08/18 02:00 Dextrose IVPB 100 mls/hr Q8H-IV RAZ Administration Lactobacillus Acidophilus 1 tab 04/03/18 10:45 04/07/18 09:43 Bacid - PO 1 tab DAILY RAZ Administration Melatonin 5 mg 04/03/18 15:41 Melatonin PO HS PRN INSOMNIA Methylprednisolone Sodium Succinate 40 mg 04/05/18 10:00 04/07/18 21:16 Solu-Medrol - IVPUSH 40 mg BID RAZ Administration Mirtazapine 15 mg 04/03/18 22:00 04/07/18 21:17 Remeron - PEG 15 mg HS RAZ Administration Raltegravir 400 mg 04/03/18 22:00 04/07/18 21:19 Isentress - NR 400 mg BID RAZ Administration Sertraline HCl 50 mg 04/04/18 10:00 04/07/18 09:45 Zoloft - PO 50 mg DAILY RAZ Administration Tramadol HCl 50 mg 04/03/18 12:02 04/07/18 21:50 Ultram - PO 50 mg Q6H PRN Administration PAIN LEVEL 4 - 6 Zolpidem Tartrate 5 mg 04/04/18 12:17 04/07/18 21:21 Ambien - PO 5 mg HS PRN Administration INSOMNIA ASSESSMENT/PLAN: Patient is a 47 year old female with a significant past medical history of +HIV , laryngeal cancer, chronic trach, PEG tube, hepatitis B and failure to thrive. Patient presented to the ED with symptoms of nausea, vomiting, diarrhea, cough and fever. ID: Gram negative sepsis in the setting of HIV and laryngeal cancer, resolved. Blood cultures 03/28 +kleb, repeat blood cultures negative. on Cefazolin antibiotics per ID. Chronic trach/shortness of breath/Asthma/COPD: On scheduled duonebs with mucomyst. continue solumedrol BID. Pulm: Pneumonia/COPD exacerbation. On bronchodilators and chest percussion. Monitor airway to maintain stable oxygen levels of >92%. continue humdified oxygen via trach. Pleural effusions: Bilateral pleural effusions seen on CT scan. right > left, Patient for a thoracentesis tomorrow. hold heparin until after procedure. Onc: Laryngeal carcinoma, has chronic trach and feeds via peg tube. Needs MBS to evaluate swallowing function. Seen by speech and swallow. Pt made aware that MBS could not be done until patient has her trach changed and provox can be used. On GT feedings of high calorie boost. Prosource bid. dietary following. HIV: Continue home antiviral therapy. Neuro Anxiety history. Monitor for increased anxiety. GI: GTube: new GT replaced 9.4.18 by GI. Continue feeds. prophy: Heparin on hold for thoracentesis swallow evaluation, will need MBS. aspiration precautions. fen GT feeds, given boost supplements via gravity. monitor electrolytes On continuous pulse monitoring. Visit type - Emergency Visit Emergency Visit: Yes ED Registration Date: 03/28/18 Care time: The patient presented to the Emergency Department on the above date and was hospitalized for further evaluation of their emergent condition. - New Patient This patient is new to me today: No - Critical Care Critical Care patient: No - Discharge Referral Referred to [facility] Med [facility] No
[2018-04-08] MEDS: BUDESONIDE/FORMETEROL FUMARATE 160/4.5 mcg INHALER IH SCH ×2 (10:00→22:43)
[2018-04-08] MEDS: FAMOTIDINE 20 MG/50 ML IVPB 20 MG/50 ML MG IVPB SCH ×2 (10:15→22:02)
[2018-04-08] MEDS: LACTOBACILLUS ACIDOPHILUS 1 TABLET PO SCH (10:15)
[2018-04-08] MEDS: methylPREDNISolone NA SUCC 40 MG/1 ML VIAL IVPUSH SCH ×2 (10:15→22:02)
[2018-04-08] MEDS: SERTRALINE HCL 50 MG TABLET (FP) PO SCH (10:15)
[2018-04-08] MEDS: GABAPENTIN 250 MG/5 ML ORAL SOLUTION, 470 ML BOTTLE PEG SCH ×2 (10:16→22:42)
[2018-04-08] MEDS: ETRAVIRINE 100 MG TABLET PO SCH ×2 (10:17→18:20)
[2018-04-08] MEDS: FLUTICASONE PROP 0.05% 16 GM NASAL SPRAY NS SCH (10:17)
[2018-04-08] MEDS: RALTEGRAVIR POTASSIUM 400 MG TAB NR SCH ×2 (10:17→22:42)
[2018-04-08] MEDS: EMTRICITABINE 200MG/TENOFOVIR 300MG PO SCH (10:18)
--- NOTE | 2018-04-08 12:05 | CON.CARD ---
Consult Consult Specialty:: cardiology Reason for Consultation:: atypical chest pain - History of Present Illness History of Present Illness: The patient is a 47 year old female with a history of laryngeal cancer s/p trach and peg, AIDs, HIV, Hep B, failure to thrive who presents for evaluation of difficulty breath ing, vomiting, and chest pain. The patient reports a 4 day history of worsening right sided chest pain, nausea, vomiting and difficulty breathing prompting her presentation to the ED for further evaluation. She notes that the chest pain initially was sharp, but now is a tightness worse with deep inspiration. She notes purulent cough as well with increased mucus from her trach. She has also noted fevers to 103 at home that has been minimally responsive to tylenol. The patient otherwise denies chills, abdominal pain, or changes with urination or bowel movements. Asked to see pt due to sudden central strong chest tightness that occured last night after pt had a prolonged coughing spell. The discomfor lasted for a few seconds. She denies having a hx of chest pain except with or after cough. She usually walks rapidly and "outwalks everybody", often walking a few blocks in a day, though gets fatigued walking uphill. - History Source History Provided By: Patient, Medical Record Limitations to Obtaining History: No Limitations - Past Medical History Pulmonary: Yes: Asthma, Cancer (laryngeal), COPD, Other (vocal cord mass) Hepatobiliary: Yes: Hepatitis B Reproductive: Yes: Postmenopausal ...LMP: 05/14/12 Infectious Disease: Yes: AIDS, HIV ENT: Yes: Other (trach in place) - Alcohol/Substance Use Hx Alcohol Use: No History of Substance Use: reports: None - Smoking History Smoking history: Current every day smoker Have you smoked in the past 12 months: Yes Aproximately how many cigarettes per day: 20 If you are a former smoker, when did you quit?: 2016 - Social History Usual Living Arrangement: With Spouse ADL: Independent History of Recent Travel: No Home Medications - Allergies Allergies/Adverse Reactions: Allergies Allergy/AdvReac Type Severity Reaction Status Date / Time sulfamethoxazole Allergy Unknown Rash Verified 03/28/18 12:08 [From Bactrim] trimethoprim [From Bactrim] Allergy Unknown Rash Verified 03/28/18 12:08 abacavir sulfate Allergy Rash Verified 03/28/18 12:08 [From Ziagen] atazanavir sulfate Allergy Rash Verified 03/28/18 12:08 [From Ted] azithromycin Allergy Rash Verified 03/28/18 12:08 dapsone Allergy Rash Verified 03/28/18 12:08 - Home Medications Home Medications: Ambulatory Orders Albuterol 0.083% Nebulizer Keyonna [Ventolin 0.083% Nebulizer Soln -] 1 neb NEB Q4H PRN #1 box MDD 6 11/18/17 Albuterol Sulfate Inhaler - [Ventolin HFA Inhaler -] 1 inh IH Q4H #1 inhaler Budesonide/Formeterol Fumarate [SYMBICORT 160/4.5mcg -] 2 inh IH BID #1 inhaler 11/18/17 Emtricitabine/Tenofovir [Truvada -] 1 tab PEG DAILY #30 tablet 11/18/17 Etravirine [Intelence -] 100 mg PEG BID #60 tablet 11/18/17 Fluticasone Prop 0.05% Nasal [Flonase -] 1 - 2 spray NS DAILY #1 spray.pump Gabapentin Liquid [Neurontin Oral Liquid -] 250 mg PO BID #1 bottle 11/18/17 Raltegravir [Isentress] 400 mg PEG BID #60 tab 11/18/17 Bacitracin - [Bacitracin Topical Ointment -] 1 applic TP BID #1 applic 03/04/18 Clonazepam [Klonopin] 1 mg PO TID PRN #90 tablet MDD 3 03/04/18 Ibuprofen 1 tab PO BID #30 tablet MDD 2 03/04/18 Mirtazapine [Remeron -] 15 mg PO DAILY #30 tablet 03/04/18 Ondansetron HCl [Zofran] 4 mg PO DAILY PRN #5 tablet MDD 1 03/04/18 Sertraline HCl [Zoloft] 50 mg PO DAILY #30 tablet 03/04/18 Sertraline HCl [Zoloft] 100 mg PO AM #30 tablet 03/04/18 Zolpidem Tartrate [Ambien] 5 mg PO HS #30 tablet MDD 1 03/04/18 Family Disease History - Family Disease History Family History: Denies Review of Systems - Review of Systems Constitutional: reports: Unintentional Wgt. Loss Eyes: reports: No Symptoms HENT: reports: No Symptoms Neck: reports: No Symptoms Cardiovascular: reports: Chest Pain Respiratory: reports: SOB on Exertion Gastrointestinal: reports: No Symptoms Genitourinary: reports: No Symptoms Breasts: reports: No Symptoms Reported Musculoskeletal: reports: Muscle Weakness Integumentary: reports: No Symptoms Neurological: reports: No Symptoms Psychiatric: reports: No Symptoms - Risk Factors Known Risk Factors: Yes: Hypercholesterolemia, Hypertension, Other (HIV) Vital Signs: Vital Signs Temperature 98 F 04/08/18 07:00 Pulse Rate 89 04/08/18 07:00 Respiratory Rate 20 04/08/18 07:00 Blood Pressure 117/55 04/08/18 07:00 O2 Sat by Pulse Oximetry (%) 92 L 04/07/18 21:00 Constitutional: Yes: Cachectic Eyes: Yes: WNL HENT: Yes: WNL Neck: Yes: Other Respiratory: Yes: Regular Gastrointestinal: Yes: Soft Renal/: No: Anuria Cardiovascular: Yes: Regular Rate and Rhythm JVD: No Carotid Bruit: No PMI: Non-Displaced Heart Sounds: Yes: S1, S2 Murmur: Yes: Systolic Murmur, Grade 2 Musculoskeletal: Yes: Muscle Weakness Extremities: Yes: Cool Edema: No Peripheral Pulses WNL: Yes Integumentary: Yes: WNL Neurological: Yes: WNL Psychiatric: Yes: WNL - Other Data Labs, Other Data: CBC, BMP 04/08/18 05:30 04/08/18 05:30 INR, PTT INR 1.22 (0.83-1.09) H 03/28/18 12:35 Troponin, BNP 04/08/18 04/08/18 04/08/18 03:30 05:30 05:30 Troponin I < 0.02 < 0.02 Cancelled Troponin, BNP 04/08/18 04/08/18 04/08/18 03:30 05:30 05:30 Troponin I < 0.02 < 0.02 Cancelled Abnormal Lab Results 04/08/18 04/09/18 04/09/18 05:30 09:44 09:44 WBC 13.4 H MCV 98.5 H Plt Count 568 H D Absolute Neuts (auto) 11.0 H BUN 28 H 33 H Creatinine 0.3 L 0.5 L Random Glucose 113 H 126 H Magnesium 2.6 H Total Protein 6.2 L Albumin 2.6 L 3.1 L Imaging - Results Chest X-ray: Image Reviewed (bilateral pleural effusion R>L, and infiltrates) EKG: Image Reviewed (sinus tachycardia (03/28/18), LAFB) Problem List - Problems (1) Acute on chronic respiratory failure with hypoxia and hypercapnia Code(s): J96.21 - ACUTE AND CHRONIC RESPIRATORY FAILURE WITH HYPOXIA; J96.22 - ACUTE AND CHRONIC RESPIRATORY FAILURE WITH HYPERCAPNIA (2) Laryngeal carcinoma Code(s): C32.9 - MALIGNANT NEOPLASM OF LARYNX, UNSPECIFIED (3) AIDS Code(s): B20 - HUMAN IMMUNODEFICIENCY VIRUS [HIV] DISEASE (4) Cough Code(s): R05 - COUGH (5) Tobacco dependence Code(s): F17.200 - NICOTINE DEPENDENCE, UNSPECIFIED, UNCOMPLICATED (6) Tracheostomy dependence Code(s): Z93.0 - TRACHEOSTOMY STATUS (7) Atypical chest pain Assessment/Plan: Chest pain after coughing; no prior hx chest pain. She walks relatively frequently, and denies exertional chest discomfort. No acute STT changes on EKG. TNI <0.02 on multiple checks. Cholesterol well-controlled. F/u TFTs (decreased TSH earler thisw year) ECHO 2016: normal LVEF; ? small, loculated pericardial effusion; will repeat for chamber sizes, LVEF, r/u effusion. Code(s): R07.89 - OTHER CHEST PAIN (8) Acute on chronic diastolic CHF (congestive heart failure) Assessment/Plan: Dyspnea on mild exertion. Pleural effusion on CXR. F/u BNP. ECHO for LVEF, wall thickness and motion, valve status, chamber sizes. F/u BUN/Cr, Is and Os, daily weight, electrolytes. Code(s): I50.33 - ACUTE ON CHRONIC DIASTOLIC (CONGESTIVE) HEART FAILURE
[2018-04-08] MEDS: clonazePAM 0.5 MG TABLET PO PRN ×2 (12:10→22:04)
--- NOTE | 2018-04-08 12:36 | PN ---
Progress Note, Physician History of Present Illness: PULMONARY ALERT,LESS CONGESTED ,+ COUGH. O2 SAT 95% ON RA - Current Medication List Current Medications: Active Medications Acetaminophen (Tylenol -) 650 mg PO Q6H PRN PRN Reason: FEVER Last Admin: 04/06/18 21:04 Dose: 650 mg Acetylcysteine (Mucomyst 20 Oral / Inh Use Only*) 200 mg NEB Q4HWA [facility] Last Admin: 04/08/18 10:15 Dose: 200 mg Albuterol Sulfate (Ventolin 0.083% Nebulizer Soln -) 1 amp NEB Q4HWA [facility] Last Admin: 04/08/18 10:15 Dose: 1 amp Amino Acids (Prosource No Carb Liquid Pkt) 30 ml GT BID@0800,1730 [facility] Last Admin: 04/08/18 10:15 Dose: 30 ml Budesonide/Formoterol Fumarate (Symbicort 160/4.5mcg -) 2 puff IH BID [facility] Last Admin: 04/07/18 21:20 Dose: 2 puff Clonazepam (Klonopin -) 0.25 mg PO BID PRN PRN Reason: ANXIETY Last Admin: 04/08/18 12:10 Dose: 0.25 mg Emtricitabine/Tenofovir (Truvada) 1 tab PO DAILY [facility] Last Admin: 04/08/18 10:18 Dose: 1 tab Etravirine (Intelence -) 100 mg PO BIDPC [facility] Last Admin: 04/08/18 10:17 Dose: 100 mg Fluticasone Propionate (Flonase -) 1 spray NS DAILY [facility] Last Admin: 04/08/18 10:17 Dose: 1 spray Gabapentin (Neurontin Oral Liquid -) 250 mg PEG BID [facility] Last Admin: 04/08/18 10:16 Dose: 250 mg Heparin Sodium (Porcine) (Heparin -) 5,000 unit SQ TID [facility] Last Admin: 04/08/18 06:00 Dose: 5,000 unit Famotidine/Sodium Chloride (Pepcid 20 Mg Premixed Ivpb -) 20 mg in 50 mls @ 100 mls/hr IVPB BID [facility] Last Admin: 04/08/18 10:15 Dose: 100 mls/hr Cefazolin Sodium 1 gm/ (Dextrose) 50 mls @ 100 mls/hr IVPB Q8H-IV RAZ Last Admin: 04/08/18 10:14 Dose: 100 mls/hr Lactobacillus Acidophilus (Bacid -) 1 tab PO DAILY [facility] Last Admin: 04/08/18 10:15 Dose: 1 tab Melatonin (Melatonin) 5 mg PO HS PRN PRN Reason: INSOMNIA Methylprednisolone Sodium Succinate (Solu-Medrol -) 40 mg IVPUSH BID [facility] Last Admin: 04/08/18 10:15 Dose: 40 mg Mirtazapine (Remeron -) 15 mg PEG HS [facility] Last Admin: 04/07/18 21:17 Dose: 15 mg Raltegravir (Isentress -) 400 mg NR BID [facility] Last Admin: 04/08/18 10:17 Dose: 400 mg Sertraline HCl (Zoloft -) 50 mg PO DAILY [facility] Last Admin: 04/08/18 10:15 Dose: 50 mg Tramadol HCl (Ultram -) 50 mg PO Q6H PRN PRN Reason: PAIN LEVEL 4 - 6 Last Admin: 04/07/18 21:50 Dose: 50 mg Zolpidem Tartrate (Ambien -) 5 mg PO HS PRN PRN Reason: INSOMNIA Last Admin: 04/07/18 21:21 Dose: 5 mg - Objective Vital Signs: Vital Signs Temperature 98 F 04/08/18 07:00 Pulse Rate 89 04/08/18 07:00 Respiratory Rate 20 04/08/18 07:00 Blood Pressure 117/55 04/08/18 07:00 O2 Sat by Pulse Oximetry (%) 92 L 04/07/18 21:00 Constitutional: Yes: Calm, Thin Eyes: Yes: WNL HENT: Yes: WNL Neck: Yes: Supple (TRACH) Cardiovascular: Yes: Regular Rate and Rhythm, S1, S2 Respiratory: Yes: Rhonchi (SCATTERED ASAEL RHONCHI) Gastrointestinal: Yes: Normal Bowel Sounds, Soft Extremities: Yes: WNL Edema: No Labs: CBC, BMP 04/08/18 05:30 04/08/18 05:30 INR, PTT INR 1.22 (0.83-1.09) H 03/28/18 12:35 Problem List - Problems (1) Acute on chronic respiratory failure with hypoxia and hypercapnia Code(s): J96.21 - ACUTE AND CHRONIC RESPIRATORY FAILURE WITH HYPOXIA; J96.22 - ACUTE AND CHRONIC RESPIRATORY FAILURE WITH HYPERCAPNIA (2) Laryngeal carcinoma Code(s): C32.9 - MALIGNANT NEOPLASM OF LARYNX, UNSPECIFIED (3) Pneumonia Code(s): J18.9 - PNEUMONIA, UNSPECIFIED ORGANISM Qualifiers: Pneumonia type: due to unspecified organism Laterality: bilateral Lung location: unspecified part of lung Qualified Code(s): J18.9 - Pneumonia, unspecified organism (4) AIDS Code(s): B20 - HUMAN IMMUNODEFICIENCY VIRUS [HIV] DISEASE (5) Difficulty breathing Code(s): R06.89 - OTHER ABNORMALITIES OF BREATHING (6) HIV (human immunodeficiency virus infection) Code(s): Z21 - ASYMPTOMATIC HUMAN IMMUNODEFICIENCY VIRUS INFECTION STATUS (7) Head and neck cancer Code(s): C76.0 - MALIGNANT NEOPLASM OF HEAD, FACE AND NECK Assessment/Plan A/P Acute on Chronic Hypoxic Respiratory Failure improving Pneumonia ARDS resolving Klebsiella Bacteremia Sepsis HIV/AIDS h/o Laryngeal Ca s/p trach/PEG - antibiotics - continue bacid - inhaled bronchodilators with mucomyst - pain control - chest PT/bed percussion - taper Fio2 to keep SpO2 >90% - continue ART - DVT prophylaxis - thoracentesis - steroids - chest x-ray DR MAYER
[2018-04-08 13:59] LABS: CK-MB 1.26 ng/ml (0.5-3.6)
[2018-04-08] MEDS: traMADol HCL 50 MG TABLET PO PRN ×2 (15:29→22:04)
--- NOTE | 2018-04-08 16:53 | ECHO ---
Name: LILIYA GLEZ Exam:Adult Echocardiogram Study Date: 04/08/2018 01:46 PM Age: 47 yrs Reason For Study: CHEST PAIN HX OF PERICARDIAL EFFUSION Height: 62 in Weight: 94 lb BSA: 1.4 m2 MMode/2D Measurements & Calculations IVSd: 0.74 cm Ao root diam: 3.1 cm LVIDd: 4.2 cm LA dimension: 3.0 cm LVIDs: 2.6 cm LVPWd: 0.60 cm EDV(Teich): 76.4 ml TAPSE: 2.6 cm ESV(Teich): 25.3 ml RV S Gianni: 14.9 cm/sec Doppler Measurements & Calculations MV E max gianni: 69.1 cm/sec TR max gianni: 224.6 cm/sec MV A max gianni: 63.7 cm/sec TR max P.3 mmHg MV E/A: 1.1 MV dec time: 0.13 sec Med Peak E' Gianni: 7.7 cm/sec Med E/e': 9.0 Lat Peak E' Gianni: 12.2 cm/sec Lat E/e': 5.7 Procedure A complete two-dimensional transthoracic echocardiogram was performed (2D, M-mode, Doppler and color flow Doppler). Left Ventricle The left ventricular size, thickness and function are normal. The left ventricular ejection fraction is normal. Ejection Fraction = 60-65%. The left ventricular wall motion is normal. Right Ventricle The right ventricle is normal in size and function. Atria Normal left and right atrial size and function. Mitral Valve There is no mitral regurgitation noted. Tricuspid Valve There is mild tricuspid regurgitation. Right ventricular systolic pressure is normal. Aortic Valve No hemodynamically significant valvular aortic stenosis. No aortic regurgitation is present. Pulmonic Valve There is no pulmonic valvular regurgitation. Great Vessels The aortic root is normal size. Pericardium/Pleura Small pericardial effusion (<1cm). There are no echocardiographic indications of cardiac tamponade. Interpretation Summary The left ventricular size, thickness and function are normal. The right ventricle is normal in size and function. There is mild tricuspid regurgitation. Small pericardial effusion (<1cm). There are no echocardiographic indications of cardiac tamponade. MD Juve Espinosa 04/08/2018 04:49 PM
[2018-04-08] MEDS: MIRTAZAPINE 15 MG TABLET (FP) PEG SCH (22:02)
[2018-04-08] MEDS: ZOLPIDEM TARTRATE 5 MG TABLET PO PRN (22:03)
[2018-04-09] MEDS: CEFAZOLIN 1 GM in DEXTROSE 5%-WATER - 50 ML IVPB SCH ×3 (01:01→19:50)
[2018-04-09] MEDS ORDERED: LIDOCAINE 5% TOPICAL PATCH TP ONE (01:51)
[2018-04-09] MEDS: ACETAMINOPHEN 325 MG TABLET (FP) PO PRN ×2 (03:55→21:30)
[2018-04-09] MEDS ORDERED: clonazePAM 0.5 MG TABLET PO ONE (04:30)
[2018-04-09] MEDS: ALBUTEROL SO4 0.083% IH SOL 2.5 MG/3 ML VIAL.NEB. NEB SCH ×5 (05:00→23:22)
[2018-04-09] MEDS: ACETYLCYSTEINE 20% 200MG/ML 4 ML VIAL *FOR ORAL / INH USE ONLY NEB SCH ×5 (05:00→23:22)
--- NOTE | 2018-04-09 05:01 | HOSP ---
Subjective - Review of Symptoms Events since last encounter: Hospitalist Encounter Notified by the RN that the patient requested another dose of pain medication for lumbar pain. Per the RN the patient was medicated at 2200 last night Received a second call from another RN, that the patient is requesting medication for anxiety, per the RN the patient was medicated at 2200 last night Received a call from the RN, that the patient was requesting to sepak with the Hospitalist regarding her anti-anxiety medication. Plan: Lidoderm Patch ordered x1 Subjective: 0420- Arrived to bedside, patient is awake, alert, oriented and agitated. Patient is requesting an additional dose of her Klonopin. Patient states" I take my Klonipin every 6 hours as needed." PE performed, current med regimen reviewed. Attempts made to explain to the patient, that her medication regimen will need to be reviewed by the day time provider. Patient became increasingly agitated and accusatory. Plan: Klonipin x1 ordered Will have day team review the current med regimen Musculoskeletal: Yes: Back Pain Other Systems: Psychological: Anxiety Physical Examination Vital Signs: Vital Signs Temperature 98.5 F 04/09/18 01:45 Pulse Rate 99 H 04/09/18 01:45 Respiratory Rate 18 04/09/18 01:45 Blood Pressure 121/74 04/09/18 01:45 O2 Sat by Pulse Oximetry (%) 93 L 04/08/18 21:00 Constitutional: Yes: Anxious, Mild Distress, Thin Eyes: Yes: Conjunctiva Clear, PERRL HENT: Yes: Atraumatic, Normocephalic Neck: Yes: Supple, Other (Trach with collar, humidifed O2) Cardiovascular: Yes: Regular Rate and Rhythm, S1, S2 Respiratory: Yes: Rhonchi, Other (trach collar with humidified O2) Gastrointestinal: Yes: Soft, Other (PEG) Extremities: Yes: WNL Edema: No Peripheral Pulses WNL: Yes Neurological: Yes: Alert, Cran Nerves II-XII Intact ...Motor Strength: WNL Psychiatric: Yes: Alert, Oriented, Agitated Labs: CBC, BMP 04/08/18 05:30 04/08/18 05:30
[2018-04-09 10:00] LABS: BASO % 0.1 % (0-2.0); EOS % 0.2 % (0-4.5); HEMATOCRIT 36.9 % (32.4-45.2); HEMOGLOBIN 12.3 GM/dL (10.7-15.3); LYMPH % 13.3 % (8-40); MCH 32.7 pg (25.7-33.7); MCHC 33.2 g/dl (32.0-36.0); MEAN CELL VOLUME 98.5 fl (80-96); MEAN PLT VOLUME 8.3 fl (7.5-11.1); MONO % 4.5 % (3.8-10.2); NEUT % 81.9 % (42.8-82.8); PLATELET COUNT 568 K/MM3 (134-434); RBC 3.74 M/mm3 (3.60-5.2); RDW 14.7 % (11.6-15.6); WHITE BLOOD COUNT 13.4 K/mm3 (4.0-10.0)
--- NOTE | 2018-04-09 10:08 | PN ---
Physical Exam: SUBJECTIVE: Patient seen and examined at the bedside. Anxious overnight, given klonopin x 1 dose. Feels better now. verbalizing fears of upcoming thoracentesis. emotional support provided. Patient also to get a new G tube, new one is too small and tip unable to fit on her home feeding bags. IR consulted. OBJECTIVE: Vital Signs Period Temp Pulse Resp BP Sys/Lisa Pulse Ox Last 24 Hr 97.9 F-98.6 F 89-102 18-20 121-134/72-88 93 GENERAL: The patient is awake, alert, and fully oriented, in no acute distress, anxious HEAD: Normal with no signs of trauma, trach capped EYES: PERRL, extraocular movements intact, sclera anicteric, conjunctiva clear. No ptosis. ENT: Ears normal, nares patent, oropharynx clear without exudates NECK: Trachea midline, full range of motion, supple. LUNGS: bilateral posterior lungs with scattered rhonchi but overall improving. HEART: Regular rate and rhythm ABDOMEN: Soft, nontender, nondistended, g tube in place, replaced by GI 3 days ago, but her home feeding bags do not feet through port. replacement ordered via IR PSYCH: anxious overnight, calmer now. SKIN: Warm, dry, normal turgor, no rashes or lesions noted Laboratory Results - last 24 hr 04/08/18 04/08/18 04/09/18 05:30 05:30 09:44 WBC 13.4 H RBC 3.74 Hgb 12.3 Hct 36.9 MCV 98.5 H MCH 32.7 MCHC 33.2 RDW 14.7 Plt Count 568 H D MPV 8.3 Absolute Neuts (auto) 11.0 H Neutrophils % 81.9 Lymphocytes % 13.3 D Monocytes % 4.5 Eosinophils % 0.2 D Basophils % 0.1 D Nucleated RBC % 0 Sodium 141 Potassium 4.9 Chloride 102 Carbon Dioxide 30 Anion Gap 9 BUN 28 H Creatinine 0.3 L Creat Clearance w eGFR > 60 Random Glucose 113 H Calcium 8.5 Magnesium 2.6 H Total Bilirubin 0.2 AST 24 ALT 32 Alkaline Phosphatase 63 Creatine Kinase 34 CK-MB (CK-2) 1.26 Troponin I < 0.02 Total Protein 6.2 L Albumin 2.6 L TSH 2.81 Cancelled Active Medications Generic Name Dose Route Start Last Admin Trade Name Freq PRN Reason Stop Dose Admin Acetaminophen 650 mg 04/03/18 15:41 04/09/18 03:55 Tylenol - PO 650 mg Q6H PRN Administration FEVER Acetylcysteine 200 mg 04/03/18 10:30 04/09/18 09:10 Mucomyst 20 Oral / Inh Use Only* NEB 200 mg Q4HWA RAZ Administration Albuterol Sulfate 1 amp 04/03/18 10:30 04/09/18 09:10 Ventolin 0.083% Nebulizer Soln - NEB 1 amp Q4HWA RAZ Administration Amino Acids 30 ml 04/07/18 20:14 04/08/18 18:19 Prosource No Carb Liquid Pkt GT 30 ml BID@0800,1730 RAZ Administration Budesonide/Formoterol Fumarate 2 puff 04/03/18 22:00 04/08/18 22:43 Symbicort 160/4.5mcg - IH 2 puff BID RAZ Administration Clonazepam 0.25 mg 04/09/18 07:18 Klonopin - GT Q6HPO PRN ANXIETY Emtricitabine/Tenofovir 1 tab 04/04/18 10:00 04/08/18 10:18 Truvada PO 1 tab DAILY RAZ Administration Etravirine 100 mg 04/03/18 18:30 04/08/18 18:20 Intelence - PO 100 mg BIDPC RAZ Administration Fluticasone Propionate 1 spray 04/04/18 10:00 04/08/18 10:17 Flonase - NS 1 spray DAILY RAZ Administration Gabapentin 250 mg 04/03/18 22:00 04/08/18 22:42 Neurontin Oral Liquid - PEG 250 mg BID RAZ Administration Heparin Sodium (Porcine) 5,000 unit 04/03/18 22:00 04/08/18 16:10 Heparin - SQ 5,000 unit TID RAZ Administration Famotidine/Sodium Chloride 20 mg in 50 mls @ 100 mls/hr 04/03/18 22:00 22:02 Pepcid 20 Mg Premixed Ivpb - IVPB 100 mls/hr BID RAZ Administration Cefazolin Sodium 1 gm/ 50 mls @ 100 mls/hr 04/03/18 18:00 04/09/18 01:01 Dextrose IVPB 100 mls/hr Q8H-IV RAZ Administration Lactobacillus Acidophilus 1 tab 04/03/18 10:45 04/08/18 10:15 Bacid - PO 1 tab DAILY RAZ Administration Melatonin 5 mg 04/03/18 15:41 04/08/18 22:03 Melatonin PO 5 mg HS PRN Administration INSOMNIA Methylprednisolone Sodium Succinate 40 mg 04/05/18 10:00 04/08/18 22:02 Solu-Medrol - IVPUSH 40 mg BID RAZ Administration Mirtazapine 15 mg 04/03/18 22:00 04/08/18 22:02 Remeron - PEG 15 mg HS RAZ Administration Miscellaneous 1 each 04/09/18 22:00 Lidoderm Patch Removal MC 04/09/18 22:01 ONCE@2200 ONE Raltegravir 400 mg 04/03/18 22:00 04/08/18 22:42 Isentress - NR 400 mg BID RAZ Administration Sertraline HCl 50 mg 04/04/18 10:00 04/08/18 10:15 Zoloft - PO 50 mg DAILY RAZ Administration Tramadol HCl 50 mg 04/03/18 12:02 04/08/18 22:04 Ultram - PO 50 mg Q6H PRN Administration PAIN LEVEL 4 - 6 Zolpidem Tartrate 5 mg 04/04/18 12:17 04/08/18 22:03 Ambien - PO 5 mg HS PRN Administration INSOMNIA ASSESSMENT/PLAN: Patient is a 47 year old female with a significant past medical history of +HIV , laryngeal cancer, chronic trach, PEG tube, hepatitis B and failure to thrive. Patient presented to the ED with symptoms of nausea, vomiting, diarrhea, cough and fever. ID: Gram negative sepsis in the setting of HIV and laryngeal cancer, resolved. Blood cultures 03/28 +kleb, repeat blood cultures negative. on Cefazolin antibiotics per ID. Pulm: Chronic trach/shortness of breath/Asthma/COPD: On scheduled duonebs with mucomyst. continue solumedrol BID per pulmonary Pneumonia/COPD exacerbation. On bronchodilators and chest percussion. Monitor airway to maintain stable oxygen levels of >92%. continue humidified oxygen via trach. Pleural effusions: Bilateral pleural effusions seen on CT scan. right > left, Patient for a thoracentesis today. hold heparin until after procedure. Onc: Laryngeal carcinoma, has chronic trach and feeds via peg tube. Needs MBS to evaluate swallowing function. Seen by speech and swallow. Pt made aware that MBS could not be done until patient has her trach changed and provox can be used. On GT feedings of high calorie boost, had new GT replaced, but port too small. IR requested to intervene. Prosource bid. dietary following. HIV: Continue home antiviral therapy. Neuro Anxiety history. Anxious overnight. klonopin increased to q6 prn. It patient becomes anxious please give a one time doses prn. GI: GTube: new GT replaced 9.4.18 by GI, port too small, asking IR to intervene. prophy: Heparin on hold for thoracentesis swallow evaluation, will need MBS. aspiration precautions. fen GT feeds, given boost supplements via gravity. monitor electrolytes On continuous pulse monitoring. Visit type - Emergency Visit Emergency Visit: Yes ED Registration Date: 03/28/18 Care time: The patient presented to the Emergency Department on the above date and was hospitalized for further evaluation of their emergent condition. - New Patient This patient is new to me today: No - Critical Care Critical Care patient: No - Discharge Referral Referred to [facility] Med P.C.: No
[2018-04-09 10:23] LABS: ALBUMIN 3.1 g/dl (3.4-5.0); ANION GAP 11 MMOL/L (8-16); BLOOD UREA NITROGEN 33 mg/dL (7-18); CALCIUM 9.4 mg/dL (8.5-10.1); CHLORIDE 101 mmol/L (98-107); CO2 29 mmol/L (21-32); GLUCOSE,RANDOM 126 mg/dL (74-106); SODIUM 141 mmol/L (136-145)
[2018-04-09 10:25] LABS: INR 1.02 (0.83-1.09); PROTHROMBIN TIME (PATIENT) 11.5 SEC (9.7-13.0)
[2018-04-09 10:28] LABS: ALK PHOS 73 U/L (45-117); BILIRUBIN,TOTAL 0.3 mg/dL (0.2-1.0); CREATININE 0.5 mg/dL (0.55-1.02); SGOT/AST 20 U/L (15-37); SGPT/ALT 28 U/L (12-78); TOT PROT 7.1 g/dl (6.4-8.2)
--- NOTE | 2018-04-09 13:33 | PN ---
Progress Note, [facility] - Note Progress Note: For thoracentesis/GT change today. Reviewed plan with PNP, regarding out pt MBS and to continue NPO until we can visualize swallow and r/o aspiration Pt has been in agreement. Please provide order for out pt MBS upon d/c.
[2018-04-09] MEDS ORDERED: PT OWN MED DRAWER 7, Y5N ONE (13:48)
[2018-04-09] MEDS: FLUTICASONE PROP 0.05% 16 GM NASAL SPRAY NS SCH (14:15)
[2018-04-09] MEDS: RALTEGRAVIR POTASSIUM 400 MG TAB NR SCH ×2 (14:15→21:32)
[2018-04-09] MEDS: LACTOBACILLUS ACIDOPHILUS 1 TABLET PO SCH (14:15)
[2018-04-09] MEDS: methylPREDNISolone NA SUCC 40 MG/1 ML VIAL IVPUSH SCH ×2 (14:16→21:31)
[2018-04-09] MEDS: BUDESONIDE/FORMETEROL FUMARATE 160/4.5 mcg INHALER IH SCH ×2 (14:16→22:36)
[2018-04-09] MEDS: ETRAVIRINE 100 MG TABLET PO SCH ×2 (14:17→18:54)
[2018-04-09] MEDS: GABAPENTIN 250 MG/5 ML ORAL SOLUTION, 470 ML BOTTLE PEG SCH ×2 (14:17→21:31)
[2018-04-09] MEDS: AMINO ACIDS/PROTEIN HYDROLYS 30 ML LIQUID.PKT GT SCH ×2 (14:17→18:51)
[2018-04-09] MEDS: EMTRICITABINE 200MG/TENOFOVIR 300MG PO SCH (14:18)
[2018-04-09] MEDS: SERTRALINE HCL 50 MG TABLET (FP) PO SCH (14:20)
[2018-04-09] MEDS ORDERED: ceFAZolin SODIUM 1 GM VIAL ONE ×2 (14:48→18:48)
[2018-04-09] MEDS ORDERED: DEXTROSE 5%-WATER - 50 ML IVPB ONE ×2 (14:49→18:48)
[2018-04-09] MEDS ORDERED: SODIUM CHLORIDE 1,000 ML IV SCH (15:00)
--- NOTE | 2018-04-09 15:24 | PN ---
Progress Note, Physician - Current Medication List Current Medications: Active Medications Acetaminophen (Tylenol -) 650 mg PO Q6H PRN PRN Reason: FEVER Last Admin: 04/09/18 03:55 Dose: 650 mg Acetylcysteine (Mucomyst 20 Oral / Inh Use Only*) 200 mg NEB Q4HWA [facility] Last Admin: 04/09/18 09:10 Dose: 200 mg Albuterol Sulfate (Ventolin 0.083% Nebulizer Soln -) 1 amp NEB Q4HWA [facility] Last Admin: 04/09/18 09:10 Dose: 1 amp Amino Acids (Prosource No Carb Liquid Pkt) 30 ml GT BID@0800,1730 [facility] Last Admin: 04/09/18 14:17 Dose: Not Given Budesonide/Formoterol Fumarate (Symbicort 160/4.5mcg -) 2 puff IH BID [facility] Last Admin: 04/09/18 14:16 Dose: 2 puff Clonazepam (Klonopin -) 0.25 mg GT Q6HPO PRN PRN Reason: ANXIETY Emtricitabine/Tenofovir (Truvada) 1 tab PO DAILY [facility] Last Admin: 04/09/18 14:18 Dose: 1 tab Etravirine (Intelence -) 100 mg PO BIDPC [facility] Last Admin: 04/09/18 14:17 Dose: 100 mg Fluticasone Propionate (Flonase -) 1 spray NS DAILY [facility] Last Admin: 04/09/18 14:15 Dose: 1 spray Gabapentin (Neurontin Oral Liquid -) 250 mg PEG BID [facility] Last Admin: 04/09/18 14:17 Dose: 250 mg Heparin Sodium (Porcine) (Heparin -) 5,000 unit SQ TID [facility] Last Admin: 04/08/18 16:10 Dose: 5,000 unit Famotidine/Sodium Chloride (Pepcid 20 Mg Premixed Ivpb -) 20 mg in 50 mls @ 100 mls/hr IVPB BID [facility] Last Admin: 04/08/18 22:02 Dose: 100 mls/hr Cefazolin Sodium 1 gm/ (Dextrose) 50 mls @ 100 mls/hr IVPB Q8H-IV [facility] Last Admin: 04/09/18 01:01 Dose: 100 mls/hr Sodium Chloride (Normal Saline -) 1,000 mls @ 50 mls/hr IV ASDIR [facility] Stop: 04/10/18 14:53 Lactobacillus Acidophilus (Bacid -) 1 tab PO DAILY [facility] Last Admin: 04/09/18 14:15 Dose: 1 tab Melatonin (Melatonin) 5 mg PO HS PRN PRN Reason: INSOMNIA Last Admin: 04/08/18 22:03 Dose: 5 mg Methylprednisolone Sodium Succinate (Solu-Medrol -) 40 mg IVPUSH BID [facility] Last Admin: 04/09/18 14:16 Dose: 40 mg Mirtazapine (Remeron -) 15 mg PEG HS [facility] Last Admin: 04/08/18 22:02 Dose: 15 mg Miscellaneous (Lidoderm Patch Removal) 1 each MC ONCE@2200 ONE Stop: 04/09/18 22:01 Raltegravir (Isentress -) 400 mg NR BID [facility] Last Admin: 04/09/18 14:15 Dose: 400 mg Sertraline HCl (Zoloft -) 50 mg PO DAILY [facility] Last Admin: 04/09/18 14:20 Dose: 50 mg Tramadol HCl (Ultram -) 50 mg PO Q6H PRN PRN Reason: PAIN LEVEL 4 - 6 Last Admin: 04/08/18 22:04 Dose: 50 mg Zolpidem Tartrate (Ambien -) 5 mg PO HS PRN PRN Reason: INSOMNIA Last Admin: 04/08/18 22:03 Dose: 5 mg - Objective Vital Signs: Vital Signs Temperature 99 F 04/09/18 11:10 Pulse Rate 104 H 04/09/18 13:10 Respiratory Rate 19 04/09/18 13:10 Blood Pressure 94/76 04/09/18 13:10 O2 Sat by Pulse Oximetry (%) 100 04/09/18 13:10 Eyes: Yes: WNL, Conjunctiva Clear, EOM Intact HENT: Yes: WNL, Atraumatic, Normocephalic Neck: Yes: WNL, Supple, Trachea Midline Cardiovascular: Yes: WNL, Regular Rate and Rhythm Respiratory: Yes: WNL, Regular, CTA Bilaterally Gastrointestinal: Yes: WNL, Normal Bowel Sounds Genitourinary: Yes: WNL Musculoskeletal: Yes: WNL Extremities: Yes: WNL Edema: No Integumentary: Yes: WNL Neurological: Yes: WNL, Alert, Oriented ...Motor Strength: WNL Psychiatric: Yes: WNL Labs: CBC, BMP 04/09/18 09:44 04/09/18 09:44 INR, PTT INR 1.02 (0.83-1.09) 04/09/18 09:27 Laboratory Tests 03/28/18 03/28/18 03/28/18 12:34 12:35 12:35 WBC 13.9 H RBC 3.65 Hgb 12.2 Hct 36.0 MCV 98.8 H MCH 33.5 MCHC 33.9 RDW 14.7 Plt Count 226 MPV 9.7 Absolute Neuts (auto) 13.2 H Absolute Lymphs (auto) Total Counted 100 Neutrophils % 95.1 H D Neutrophils % (Manual) 84.0 H Band Neutrophils % 11.0 Lymphocytes % 3.5 L D Lymphocytes % (Manual) 3.0 L Monocytes % 1.2 L Monocytes % (Manual) 1 L Eosinophils % 0.2 Eosinophils % (Manual) 1.0 Basophils % 0.0 Basophils % (Manual) Myelocytes % (Man) Promyelocytes % (Man) Blast Cells % (Manual) Nucleated RBC % 0 Lymphocytes Metamyelocytes Nucleated RBCs Platelet Estimate Adequate PT with INR 13.80 H INR 1.22 H PTT (Actin FS) 29.3 Anticoagulation Therapy Puncture Site ABG pH ABG pCO2 at Pt Temp ABG pO2 at Pt Temp ABG HCO3 ABG O2 Sat (Measured) ABG O2 Content ABG Base Excess Aureliano Test VBG pH POC VBG pCO2 POC VBG pO2 Mixed VBG HCO3 O2 Delivery Device Oxygen Flow Rate Vent Mode Vent Rate Mechanical Rate PEEP Pressure Support Vent Sodium Potassium Chloride Carbon Dioxide Anion Gap BUN Creatinine Creat Clearance w eGFR POC Glucometer Random Glucose Lactic Acid 1.9 Calcium Phosphorus Magnesium Total Bilirubin AST ALT Alkaline Phosphatase Creatine Kinase CK-MB (CK-2) Troponin I Total Protein Albumin TSH Serum , Qual Urine Color Urine Appearance Urine pH Ur Specific [place] Urine Protein Urine Glucose (UA) Urine Ketones Urine Blood Urine Nitrite Urine Bilirubin Urine Urobilinogen Ur Leukocyte Esterase Urine WBC (Auto) Urine RBC (Auto) Ur Epithelial Cells Urine Mucus Stool O & P Wet [place] Absolute CD3 Count % CD3+ Lymphocytes Absolute CD4 [place] % CD4+ Lymphocyte CD4/CD8 Ratio % CD8+ Lymphocyte Absolute CD8 Count HIV-1 RNA Quant HIV-1 RNA (PCR) log10 O & P Permanent Slide 03/28/18 03/28/18 03/28/18 12:35 12:35 12:35 WBC RBC Hgb Hct MCV MCH MCHC RDW Plt Count MPV Absolute Neuts (auto) Absolute Lymphs (auto) Total Counted Neutrophils % Neutrophils % (Manual) Band Neutrophils % Lymphocytes % Lymphocytes % (Manual) Monocytes % Monocytes % (Manual) Eosinophils % Eosinophils % (Manual) Basophils % Basophils % (Manual) Myelocytes % (Man) Promyelocytes % (Man) Blast Cells % (Manual) Nucleated RBC % Lymphocytes Metamyelocytes Nucleated RBCs Platelet Estimate PT with INR INR PTT (Actin FS) Anticoagulation Therapy Puncture Site ABG pH ABG pCO2 at Pt Temp ABG pO2 at Pt Temp ABG HCO3 ABG O2 Sat (Measured) ABG O2 Content ABG Base Excess Aureliano Test VBG pH 7.42 POC VBG pCO2 45.7 POC VBG pO2 67.4 H D Mixed VBG HCO3 29.2 H O2 Delivery Device Oxygen Flow Rate Vent Mode Vent Rate Mechanical Rate PEEP Pressure Support Vent Sodium 139 Potassium 3.5 Chloride 102 Carbon Dioxide 31 Anion Gap 6 L BUN 29 H Creatinine 0.6 Creat Clearance w eGFR > 60 POC Glucometer Random Glucose 191 H Lactic Acid Calcium 8.3 L Phosphorus Magnesium Total Bilirubin 0.3 AST 25 ALT 24 Alkaline Phosphatase 88 Creatine Kinase CK-MB (CK-2) Troponin I < 0.02 Cancelled Total Protein 6.4 Albumin 2.9 L TSH Serum , Qual Urine Color Urine Appearance Urine pH Ur Specific [place] Urine Protein Urine Glucose (UA) Urine Ketones Urine Blood Urine Nitrite Urine Bilirubin Urine Urobilinogen Ur Leukocyte Esterase Urine WBC (Auto) Urine RBC (Auto) Ur Epithelial Cells Urine Mucus Stool O & P [place] Absolute CD3 Count % CD3+ Lymphocytes Absolute CD4 [place] % CD4+ Lymphocyte CD4/CD8 Ratio % CD8+ Lymphocyte Absolute CD8 Count HIV-1 RNA Quant HIV-1 RNA (PCR) log10 O & P Permanent Slide 03/28/18 03/28/18 03/28/18 12:35 12:50 18:55 WBC RBC Hgb Hct MCV MCH MCHC RDW Plt Count MPV Absolute Neuts (auto) Absolute Lymphs (auto) Total Counted Neutrophils % Neutrophils % (Manual) Band Neutrophils % Lymphocytes % Lymphocytes % (Manual) Monocytes % Monocytes % (Manual) Eosinophils % Eosinophils % (Manual) Basophils % Basophils % (Manual) Myelocytes % (Man) Promyelocytes % (Man) Blast Cells % (Manual) Nucleated RBC % Lymphocytes Metamyelocytes Nucleated RBCs Platelet Estimate PT with INR INR PTT (Actin FS) Anticoagulation Therapy Puncture Site ABG pH ABG pCO2 at Pt Temp ABG pO2 at Pt Temp ABG HCO3 ABG O2 Sat (Measured) ABG O2 Content ABG Base Excess Aureliano Test VBG pH POC VBG pCO2 POC VBG pO2 Mixed VBG HCO3 O2 Delivery Device Oxygen Flow Rate Vent Mode Vent Rate Mechanical Rate PEEP Pressure Support Vent Sodium Potassium Chloride Carbon Dioxide Anion Gap BUN Creatinine Creat Clearance w eGFR POC Glucometer Random Glucose Lactic Acid Calcium Phosphorus Magnesium Total Bilirubin AST ALT Alkaline Phosphatase Creatine Kinase 54 CK-MB (CK-2) Troponin I < 0.02 Total Protein Albumin TSH Serum , Qual Negative Urine Color Yellow Urine Appearance Clear Urine pH 5.0 D Ur Specific [place] 1.028 Urine Protein 2+ H Urine Glucose (UA) Negative Urine Ketones Negative Urine Blood Negative Urine Nitrite Negative Urine Bilirubin Negative Urine Urobilinogen Negative Ur Leukocyte Esterase Negative Urine WBC (Auto) 2 Urine RBC (Auto) <1 Ur Epithelial Cells Rare Urine Mucus Rare Stool O & P Wet [place] Absolute CD3 Count % CD3+ Lymphocytes Absolute CD4 [place] % CD4+ Lymphocyte CD4/CD8 Ratio % CD8+ Lymphocyte Absolute CD8 Count HIV-1 RNA Quant HIV-1 RNA (PCR) log10 O & P Permanent Slide 03/28/18 03/29/18 03/29/18 19:46 05:30 05:30 WBC 8.5 7.1 RBC 2.79 L Hgb 9.5 L Hct 27.9 L D MCV 100.1 H MCH 34.1 H MCHC 34.0 RDW 14.6 Plt Count 171 D MPV 9.8 Absolute Neuts (auto) 6.1 Absolute Lymphs (auto) 1.1 Total Counted Neutrophils % 85.9 H Neutrophils % (Manual) Band Neutrophils % Lymphocytes % 10.0 D Lymphocytes % (Manual) Monocytes % 3.0 L D Monocytes % (Manual) Eosinophils % 1.0 D Eosinophils % (Manual) Basophils % 0.1 D Basophils % (Manual) Myelocytes % (Man) Promyelocytes % (Man) Blast Cells % (Manual) Nucleated RBC % 0 Lymphocytes 13 Metamyelocytes Nucleated RBCs TNP Platelet Estimate PT with INR INR PTT (Actin FS) Anticoagulation Therapy Puncture Site ABG pH ABG pCO2 at Pt Temp ABG pO2 at Pt Temp ABG HCO3 ABG O2 Sat (Measured) ABG O2 Content ABG Base Excess Aureliano Test VBG pH POC VBG pCO2 POC VBG pO2 Mixed VBG HCO3 O2 Delivery Device Oxygen Flow Rate Vent Mode Vent Rate Mechanical Rate PEEP Pressure Support Vent Sodium 143 Potassium 3.5 Chloride 108 H Carbon Dioxide 28 Anion Gap 7 L BUN 18 Creatinine 0.4 L Creat Clearance w eGFR > 60 POC Glucometer Random Glucose 116 H Lactic Acid Calcium 7.4 L Phosphorus 2.2 L Magnesium 1.9 Total Bilirubin 0.2 AST 17 ALT 15 Alkaline Phosphatase 53 D Creatine Kinase CK-MB (CK-2) Troponin I Total Protein 4.4 L D Albumin 1.9 L TSH Serum , Qual Urine Color Urine Appearance Urine pH Ur Specific [place] Urine Protein Urine Glucose (UA) Urine Ketones Urine Blood Urine Nitrite Urine Bilirubin Urine Urobilinogen Ur Leukocyte Esterase Urine WBC (Auto) Urine RBC (Auto) Ur Epithelial Cells Urine Mucus Stool O & P Wet [place] Absolute CD3 Count 644 % CD3+ Lymphocytes 58.5 Absolute CD4 [place] 311 L % CD4+ Lymphocyte 28.3 L CD4/CD8 Ratio 0.94 % CD8+ Lymphocyte 30.2 Absolute CD8 Count 332 HIV-1 RNA Quant HIV-1 RNA (PCR) log10 O & P Permanent Slide 03/29/18 03/29/18 03/30/18 05:30 18:00 07:30 WBC 9.0 8.2 RBC 3.48 L 3.12 L Hgb 11.6 10.4 L Hct 34.4 D 30.9 L MCV 98.8 H 99.0 H MCH 33.3 33.3 MCHC 33.7 33.6 RDW 14.5 14.4 Plt Count 230 D 204 MPV 10.2 9.5 Absolute Neuts (auto) 7.1 Absolute Lymphs (auto) Total Counted Neutrophils % 86.5 H Neutrophils % (Manual) Band Neutrophils % Lymphocytes % 7.6 L D Lymphocytes % (Manual) Monocytes % 5.5 D Monocytes % (Manual) Eosinophils % 0.3 Eosinophils % (Manual) Basophils % 0.1 Basophils % (Manual) Myelocytes % (Man) Promyelocytes % (Man) Blast Cells % (Manual) Nucleated RBC % 0 Lymphocytes Metamyelocytes Nucleated RBCs Platelet Estimate PT with INR INR PTT (Actin FS) Anticoagulation Therapy Puncture Site ABG pH ABG pCO2 at Pt Temp ABG pO2 at Pt Temp ABG HCO3 ABG O2 Sat (Measured) ABG O2 Content ABG Base Excess Aureliano Test VBG pH POC VBG pCO2 POC VBG pO2 Mixed VBG HCO3 O2 Delivery Device Oxygen Flow Rate Vent Mode Vent Rate Mechanical Rate PEEP Pressure Support Vent Sodium Potassium Chloride Carbon Dioxide Anion Gap BUN Creatinine Creat Clearance w eGFR POC Glucometer Random Glucose Lactic Acid Calcium Phosphorus Magnesium Total Bilirubin AST ALT Alkaline Phosphatase Creatine Kinase CK-MB (CK-2) Troponin I Total Protein Albumin TSH Serum , Qual Urine Color Urine Appearance Urine pH Ur Specific [place] Urine Protein Urine Glucose (UA) Urine Ketones Urine Blood Urine Nitrite Urine Bilirubin Urine Urobilinogen Ur Leukocyte Esterase Urine WBC (Auto) Urine RBC (Auto) Ur Epithelial Cells Urine Mucus Stool O & P Wet [place] Absolute CD3 Count % CD3+ Lymphocytes Absolute CD4 [place] % CD4+ Lymphocyte CD4/CD8 Ratio % CD8+ Lymphocyte Absolute CD8 Count HIV-1 RNA Quant <20 HIV-1 RNA (PCR) log10 TNP O & P Permanent Slide 03/30/18 03/30/18 03/30/18 07:30 08:00 17:15 WBC RBC Hgb Hct MCV MCH MCHC RDW Plt Count MPV Absolute Neuts (auto) Absolute Lymphs (auto) Total Counted Neutrophils % Neutrophils % (Manual) Band Neutrophils % Lymphocytes % Lymphocytes % (Manual) Monocytes % Monocytes % (Manual) Eosinophils % Eosinophils % (Manual) Basophils % Basophils % (Manual) Myelocytes % (Man) Promyelocytes % (Man) Blast Cells % (Manual) Nucleated RBC % Lymphocytes Metamyelocytes Nucleated RBCs Platelet Estimate PT with INR INR PTT (Actin FS) Anticoagulation Therapy No Result Required. Puncture Site No Result Required. ABG pH 7.43 ABG pCO2 at Pt Temp 45.9 H ABG pO2 at Pt Temp 133.0 H D ABG HCO3 30.0 H ABG O2 Sat (Measured) 99.2 H ABG O2 Content 13.9 L ABG Base Excess 5.4 H Aureliano Test Positive VBG pH POC VBG pCO2 POC VBG pO2 Mixed VBG HCO3 O2 Delivery Device Mech vent Oxygen Flow Rate 80 Vent Mode Ac Vent Rate 18 Mechanical Rate Yes PEEP 15.0 Pressure Support Vent 320 Sodium 141 Potassium 3.2 L Chloride 104 Carbon Dioxide 30 Anion Gap 7 L BUN 11 Creatinine 0.4 L Creat Clearance w eGFR > 60 POC Glucometer Random Glucose 144 H Lactic Acid Calcium 7.8 L Phosphorus Magnesium Total Bilirubin 0.2 AST 34 ALT 24 Alkaline Phosphatase 65 D Creatine Kinase CK-MB (CK-2) Troponin I Total Protein 4.9 L Albumin 1.9 L TSH Serum , Qual Urine Color Urine Appearance Urine pH Ur Specific [place] Urine Protein Urine Glucose (UA) Urine Ketones Urine Blood Urine Nitrite Urine Bilirubin Urine Urobilinogen Ur Leukocyte Esterase Urine WBC (Auto) Urine RBC (Auto) Ur Epithelial Cells Urine Mucus Stool O & P [place] Cancelled Absolute CD3 Count % CD3+ Lymphocytes Absolute CD4 [place] % CD4+ Lymphocyte CD4/CD8 Ratio % CD8+ Lymphocyte Absolute CD8 Count HIV-1 RNA Quant HIV-1 RNA (PCR) log10 O & P Permanent Slide Cancelled 03/31/18 03/31/18 04/01/18 05:30 05:30 05:30 WBC 7.0 9.7 RBC 3.27 L 2.95 L Hgb 10.6 L 9.7 L Hct 32.1 L 29.1 L MCV 98.3 H 98.6 H MCH 32.6 32.9 MCHC 33.2 33.4 RDW 14.6 14.6 Plt Count 216 231 MPV 9.6 9.7 Absolute Neuts (auto) 6.2 8.7 H Absolute Lymphs (auto) Total Counted Neutrophils % 88.8 H 90.2 H Neutrophils % (Manual) Band Neutrophils % Lymphocytes % 8.0 5.8 L D Lymphocytes % (Manual) Monocytes % 3.2 L 3.9 Monocytes % (Manual) Eosinophils % 0.0 D 0.0 Eosinophils % (Manual) Basophils % 0.0 0.1 D Basophils % (Manual) Myelocytes % (Man) Promyelocytes % (Man) Blast Cells % (Manual) Nucleated RBC % 0 0 Lymphocytes Metamyelocytes Nucleated RBCs Platelet Estimate PT with INR INR PTT (Actin FS) Anticoagulation Therapy Puncture Site ABG pH ABG pCO2 at Pt Temp ABG pO2 at Pt Temp ABG HCO3 ABG O2 Sat (Measured) ABG O2 Content ABG Base Excess Aureliano Test VBG pH POC VBG pCO2 POC VBG pO2 Mixed VBG HCO3 O2 Delivery Device Oxygen Flow Rate Vent Mode Vent Rate Mechanical Rate PEEP Pressure Support Vent Sodium 142 Potassium 3.9 Chloride 103 Carbon Dioxide 32 Anion Gap 7 L BUN 15 Creatinine 0.3 L Creat Clearance w eGFR > 60 POC Glucometer Random Glucose 125 H Lactic Acid Calcium 8.4 L Phosphorus 3.0 Magnesium 2.0 Total Bilirubin 0.3 AST 31 ALT 25 Alkaline Phosphatase 75 D Creatine Kinase CK-MB (CK-2) Troponin I Total Protein 5.3 L Albumin 2.1 L TSH Serum , Qual Urine Color Urine Appearance Urine pH Ur Specific [place] Urine Protein Urine Glucose (UA) Urine Ketones Urine Blood Urine Nitrite Urine Bilirubin Urine Urobilinogen Ur Leukocyte Esterase Urine WBC (Auto) Urine RBC (Auto) Ur Epithelial Cells Urine Mucus Stool O & P [place] Absolute CD3 Count % CD3+ Lymphocytes Absolute CD4 [place] % CD4+ Lymphocyte CD4/CD8 Ratio % CD8+ Lymphocyte Absolute CD8 Count HIV-1 RNA Quant HIV-1 RNA (PCR) log10 O & P Permanent Slide 04/01/18 04/02/18 04/02/18 05:30 05:30 05:30 WBC 8.1 RBC 3.01 L Hgb 9.8 L Hct 29.2 L MCV 97.2 H MCH 32.6 MCHC 33.5 RDW 14.6 Plt Count 239 MPV 9.1 Absolute Neuts (auto) 6.5 Absolute Lymphs (auto) Total Counted Neutrophils % 80.0 Neutrophils % (Manual) Band Neutrophils % Lymphocytes % 14.0 D Lymphocytes % (Manual) Monocytes % 5.7 Monocytes % (Manual) Eosinophils % 0.2 D Eosinophils % (Manual) Basophils % 0.1 Basophils % (Manual) Myelocytes % (Man) Promyelocytes % (Man) Blast Cells % (Manual) Nucleated RBC % 0 Lymphocytes Metamyelocytes Nucleated RBCs Platelet Estimate PT with INR INR PTT (Actin FS) Anticoagulation Therapy Puncture Site ABG pH ABG pCO2 at Pt Temp ABG pO2 at Pt Temp ABG HCO3 ABG O2 Sat (Measured) ABG O2 Content ABG Base Excess Aureliano Test VBG pH POC VBG pCO2 POC VBG pO2 Mixed VBG HCO3 O2 Delivery Device Oxygen Flow Rate Vent Mode Vent Rate Mechanical Rate PEEP Pressure Support Vent Sodium 142 143 Potassium 3.8 3.5 Chloride 105 105 Carbon Dioxide 34 H 33 H Anion Gap 3 L 5 L BUN 25 H 26 H Creatinine 0.2 L 0.3 L Creat Clearance w eGFR > 60 > 60 POC Glucometer Random Glucose 115 H 88 Lactic Acid Calcium 8.0 L 7.5 L Phosphorus 3.0 Magnesium 2.3 2.1 Total Bilirubin 0.1 L 0.1 L AST 34 34 ALT 29 32 Alkaline Phosphatase 69 59 D Creatine Kinase CK-MB (CK-2) Troponin I Total Protein 5.0 L 4.7 L Albumin 1.8 L 1.8 L TSH Serum , Qual Urine Color Urine Appearance Urine pH Ur Specific [place] Urine Protein Urine Glucose (UA) Urine Ketones Urine Blood Urine Nitrite Urine Bilirubin Urine Urobilinogen Ur Leukocyte Esterase Urine WBC (Auto) Urine RBC (Auto) Ur Epithelial Cells Urine Mucus Stool O & P [place] Absolute CD3 Count % CD3+ Lymphocytes Absolute CD4 [place] % CD4+ Lymphocyte CD4/CD8 Ratio % CD8+ Lymphocyte Absolute CD8 Count HIV-1 RNA Quant HIV-1 RNA (PCR) log10 O & P Permanent Slide 04/03/18 04/03/18 04/04/18 05:30 05:30 05:30 WBC 5.7 14.2 H RBC 3.27 L 3.29 L Hgb 10.7 10.7 Hct 32.0 L 32.3 L MCV 97.8 H 98.2 H MCH 32.7 32.6 MCHC 33.4 33.2 RDW 14.8 14.5 Plt Count 292 D 329 MPV 8.7 8.6 Absolute Neuts (auto) 4.1 13.3 H Absolute Lymphs (auto) Total Counted Neutrophils % 71.8 93.7 H D Neutrophils % (Manual) 93.7 H Band Neutrophils % 1.1 Lymphocytes % 20.0 D 3.9 L D Lymphocytes % (Manual) 3.2 L Monocytes % 6.5 1.6 L Monocytes % (Manual) 1 L Eosinophils % 1.7 D 0.7 Eosinophils % (Manual) 1.0 Basophils % 0.0 0.1 D Basophils % (Manual) 0.0 Myelocytes % (Man) 0 Promyelocytes % (Man) 0 Blast Cells % (Manual) 0 Nucleated RBC % 0 0 Lymphocytes Metamyelocytes 0 Nucleated RBCs Platelet Estimate Adequate PT with INR INR PTT (Actin FS) Anticoagulation Therapy Puncture Site ABG pH ABG pCO2 at Pt Temp ABG pO2 at Pt Temp ABG HCO3 ABG O2 Sat (Measured) ABG O2 Content ABG Base Excess Aureliano Test VBG pH POC VBG pCO2 POC VBG pO2 Mixed VBG HCO3 O2 Delivery Device Oxygen Flow Rate Vent Mode Vent Rate Mechanical Rate PEEP Pressure Support Vent Sodium 141 Potassium 3.5 Chloride 103 Carbon Dioxide 33 H Anion Gap 5 L BUN 16 Creatinine 0.3 L Creat Clearance w eGFR > 60 POC Glucometer Random Glucose 75 Lactic Acid Calcium 7.6 L Phosphorus Magnesium 2.2 Total Bilirubin 0.2 AST 27 ALT 27 Alkaline Phosphatase 61 Creatine Kinase CK-MB (CK-2) Troponin I Total Protein 5.3 L Albumin 2.0 L TSH Serum , Qual Urine Color Urine Appearance Urine pH Ur Specific [place] Urine Protein Urine Glucose (UA) Urine Ketones Urine Blood Urine Nitrite Urine Bilirubin Urine Urobilinogen Ur Leukocyte Esterase Urine WBC (Auto) Urine RBC (Auto) Ur Epithelial Cells Urine Mucus Stool O & P [place] Absolute CD3 Count % CD3+ Lymphocytes Absolute CD4 [place] % CD4+ Lymphocyte CD4/CD8 Ratio % CD8+ Lymphocyte Absolute CD8 Count HIV-1 RNA Quant HIV-1 RNA (PCR) log10 O & P Permanent Slide 04/04/18 04/05/18 04/05/18 05:30 05:30 05:30 WBC 8.7 RBC 3.53 L Hgb 11.5 Hct 34.9 MCV 98.9 H MCH 32.5 MCHC 32.9 RDW 14.9 Plt Count 377 MPV 8.3 Absolute Neuts (auto) 7.2 Absolute Lymphs (auto) Total Counted Neutrophils % 83.4 H Neutrophils % (Manual) Band Neutrophils % Lymphocytes % 11.3 D Lymphocytes % (Manual) Monocytes % 4.3 D Monocytes % (Manual) Eosinophils % 1.0 Eosinophils % (Manual) Basophils % 0.0 Basophils % (Manual) Myelocytes % (Man) Promyelocytes % (Man) Blast Cells % (Manual) Nucleated RBC % 0 Lymphocytes Metamyelocytes Nucleated RBCs Platelet Estimate PT with INR INR PTT (Actin FS) Anticoagulation Therapy Puncture Site ABG pH ABG pCO2 at Pt Temp ABG pO2 at Pt Temp ABG HCO3 ABG O2 Sat (Measured) ABG O2 Content ABG Base Excess Aureliano Test VBG pH POC VBG pCO2 POC VBG pO2 Mixed VBG HCO3 O2 Delivery Device Oxygen Flow Rate Vent Mode Vent Rate Mechanical Rate PEEP Pressure Support Vent Sodium 138 144 Potassium 4.2 4.0 Chloride 105 103 Carbon Dioxide 32 32 Anion Gap 1 L 9 BUN 21 H 19 H Creatinine 0.3 L 0.3 L Creat Clearance w eGFR > 60 > 60 POC Glucometer Random Glucose 121 H 105 Lactic Acid Calcium 8.0 L 8.5 Phosphorus 3.1 Magnesium 2.1 Total Bilirubin AST ALT Alkaline Phosphatase Creatine Kinase CK-MB (CK-2) Troponin I Total Protein Albumin TSH Serum , Qual Urine Color Urine Appearance Urine pH Ur Specific [place] Urine Protein Urine Glucose (UA) Urine Ketones Urine Blood Urine Nitrite Urine Bilirubin Urine Urobilinogen Ur Leukocyte Esterase Urine WBC (Auto) Urine RBC (Auto) Ur Epithelial Cells Urine Mucus Stool O & P [place] Absolute CD3 Count % CD3+ Lymphocytes Absolute CD4 [place] % CD4+ Lymphocyte CD4/CD8 Ratio % CD8+ Lymphocyte Absolute CD8 Count HIV-1 RNA Quant HIV-1 RNA (PCR) log10 O & P Permanent Slide 04/05/18 04/07/18 04/07/18 05:33 09:45 09:45 WBC 13.6 H RBC 3.54 L Hgb 11.1 Hct 34.9 MCV 98.5 H MCH 31.4 MCHC 31.9 L RDW 14.6 Plt Count 444 H MPV 8.3 Absolute Neuts (auto) 10.9 H Absolute Lymphs (auto) Total Counted Neutrophils % 80.4 Neutrophils % (Manual) Band Neutrophils % Lymphocytes % 13.6 D Lymphocytes % (Manual) Monocytes % 5.6 Monocytes % (Manual) Eosinophils % 0.2 Eosinophils % (Manual) Basophils % 0.2 D Basophils % (Manual) Myelocytes % (Man) Promyelocytes % (Man) Blast Cells % (Manual) Nucleated RBC % 0 Lymphocytes Metamyelocytes Nucleated RBCs Platelet Estimate PT with INR INR PTT (Actin FS) Anticoagulation Therapy Puncture Site ABG pH ABG pCO2 at Pt Temp ABG pO2 at Pt Temp ABG HCO3 ABG O2 Sat (Measured) ABG O2 Content ABG Base Excess Aureliano Test VBG pH POC VBG pCO2 POC VBG pO2 Mixed VBG HCO3 O2 Delivery Device Oxygen Flow Rate Vent Mode Vent Rate Mechanical Rate PEEP Pressure Support Vent Sodium 142 Potassium 3.8 Chloride 103 Carbon Dioxide 31 Anion Gap 8 BUN 22 H Creatinine 0.5 L Creat Clearance w eGFR > 60 POC Glucometer 139 Random Glucose 104 Lactic Acid Calcium 8.9 Phosphorus Magnesium 2.6 H Total Bilirubin 0.3 AST 30 ALT 36 Alkaline Phosphatase 67 Creatine Kinase CK-MB (CK-2) Troponin I Total Protein 6.5 Albumin 2.7 L TSH Serum , Qual Urine Color Urine Appearance Urine pH Ur Specific [place] Urine Protein Urine Glucose (UA) Urine Ketones Urine Blood Urine Nitrite Urine Bilirubin Urine Urobilinogen Ur Leukocyte Esterase Urine WBC (Auto) Urine RBC (Auto) Ur Epithelial Cells Urine Mucus Stool O & P [place] Absolute CD3 Count % CD3+ Lymphocytes Absolute CD4 [place] % CD4+ Lymphocyte CD4/CD8 Ratio % CD8+ Lymphocyte Absolute CD8 Count HIV-1 RNA Quant HIV-1 RNA (PCR) log10 O & P Permanent Slide 04/08/18 04/08/18 04/08/18 03:30 05:30 05:30 WBC 13.6 H RBC 3.32 L Hgb 10.7 Hct 32.9 MCV 99.0 H MCH 32.2 MCHC 32.5 RDW 14.7 Plt Count 426 MPV 8.3 Absolute Neuts (auto) 12.1 H Absolute Lymphs (auto) Total Counted Neutrophils % 88.6 H Neutrophils % (Manual) Band Neutrophils % Lymphocytes % 7.3 L D Lymphocytes % (Manual) Monocytes % 4.0 Monocytes % (Manual) Eosinophils % 0.1 Eosinophils % (Manual) Basophils % 0.0 Basophils % (Manual) Myelocytes % (Man) Promyelocytes % (Man) Blast Cells % (Manual) Nucleated RBC % 0 Lymphocytes Metamyelocytes Nucleated RBCs Platelet Estimate PT with INR INR PTT (Actin FS) Anticoagulation Therapy Puncture Site ABG pH ABG pCO2 at Pt Temp ABG pO2 at Pt Temp ABG HCO3 ABG O2 Sat (Measured) ABG O2 Content ABG Base Excess Aureliano Test VBG pH POC VBG pCO2 POC VBG pO2 Mixed VBG HCO3 O2 Delivery Device Oxygen Flow Rate Vent Mode Vent Rate Mechanical Rate PEEP Pressure Support Vent Sodium 141 Potassium 4.9 Chloride 102 Carbon Dioxide 30 Anion Gap 9 BUN 28 H Creatinine 0.3 L Creat Clearance w eGFR > 60 POC Glucometer Random Glucose 113 H Lactic Acid Calcium 8.5 Phosphorus Magnesium 2.6 H Total Bilirubin 0.2 AST 24 ALT 32 Alkaline Phosphatase 63 Creatine Kinase 34 CK-MB (CK-2) 1.26 Troponin I < 0.02 < 0.02 Total Protein 6.2 L Albumin 2.6 L TSH 2.81 Serum , Qual Urine Color Urine Appearance Urine pH Ur Specific [place] Urine Protein Urine Glucose (UA) Urine Ketones Urine Blood Urine Nitrite Urine Bilirubin Urine Urobilinogen Ur Leukocyte Esterase Urine WBC (Auto) Urine RBC (Auto) Ur Epithelial Cells Urine Mucus Stool O & P Wet [place] Absolute CD3 Count % CD3+ Lymphocytes Absolute CD4 [place] % CD4+ Lymphocyte CD4/CD8 Ratio % CD8+ Lymphocyte Absolute CD8 Count HIV-1 RNA Quant HIV-1 RNA (PCR) log10 O & P Permanent Slide 04/08/18 04/08/18 04/09/18 05:30 05:30 09:27 WBC RBC Hgb Hct MCV MCH MCHC RDW Plt Count MPV Absolute Neuts (auto) Absolute Lymphs (auto) Total Counted Neutrophils % Neutrophils % (Manual) Band Neutrophils % Lymphocytes % Lymphocytes % (Manual) Monocytes % Monocytes % (Manual) Eosinophils % Eosinophils % (Manual) Basophils % Basophils % (Manual) Myelocytes % (Man) Promyelocytes % (Man) Blast Cells % (Manual) Nucleated RBC % Lymphocytes Metamyelocytes Nucleated RBCs Platelet Estimate PT with INR 11.50 INR 1.02 PTT (Actin FS) Anticoagulation Therapy Puncture Site ABG pH ABG pCO2 at Pt Temp ABG pO2 at Pt Temp ABG HCO3 ABG O2 Sat (Measured) ABG O2 Content ABG Base Excess Aureliano Test VBG pH POC VBG pCO2 POC VBG pO2 Mixed VBG HCO3 O2 Delivery Device Oxygen Flow Rate Vent Mode Vent Rate Mechanical Rate PEEP Pressure Support Vent Sodium Potassium Chloride Carbon Dioxide Anion Gap BUN Creatinine Creat Clearance w eGFR POC Glucometer Random Glucose Lactic Acid Calcium Phosphorus Magnesium Total Bilirubin AST ALT Alkaline Phosphatase Creatine Kinase CK-MB (CK-2) Troponin I Cancelled Total Protein Albumin TSH Cancelled Serum , Qual Urine Color Urine Appearance Urine pH Ur Specific [place] Urine Protein Urine Glucose (UA) Urine Ketones Urine Blood Urine Nitrite Urine Bilirubin Urine Urobilinogen Ur Leukocyte Esterase Urine WBC (Auto) Urine RBC (Auto) Ur Epithelial Cells Urine Mucus Stool O & P [place] Absolute CD3 Count % CD3+ Lymphocytes Absolute CD4 [place] % CD4+ Lymphocyte CD4/CD8 Ratio % CD8+ Lymphocyte Absolute CD8 Count HIV-1 RNA Quant HIV-1 RNA (PCR) log10 O & P Permanent Slide 04/09/18 04/09/18 09:44 09:44 WBC 13.4 H RBC 3.74 Hgb 12.3 Hct 36.9 MCV 98.5 H MCH 32.7 MCHC 33.2 RDW 14.7 Plt Count 568 H D MPV 8.3 Absolute Neuts (auto) 11.0 H Absolute Lymphs (auto) Total Counted Neutrophils % 81.9 Neutrophils % (Manual) Band Neutrophils % Lymphocytes % 13.3 D Lymphocytes % (Manual) Monocytes % 4.5 Monocytes % (Manual) Eosinophils % 0.2 D Eosinophils % (Manual) Basophils % 0.1 D Basophils % (Manual) Myelocytes % (Man) Promyelocytes % (Man) Blast Cells % (Manual) Nucleated RBC % 0 Lymphocytes Metamyelocytes Nucleated RBCs Platelet Estimate PT with INR INR PTT (Actin FS) Anticoagulation Therapy Puncture Site ABG pH ABG pCO2 at Pt Temp ABG pO2 at Pt Temp ABG HCO3 ABG O2 Sat (Measured) ABG O2 Content ABG Base Excess Aureliano Test VBG pH POC VBG pCO2 POC VBG pO2 Mixed VBG HCO3 O2 Delivery Device Oxygen Flow Rate Vent Mode Vent Rate Mechanical Rate PEEP Pressure Support Vent Sodium 141 Potassium 4.0 Chloride 101 Carbon Dioxide 29 Anion Gap 11 BUN 33 H Creatinine 0.5 L Creat Clearance w eGFR > 60 POC Glucometer Random Glucose 126 H Lactic Acid Calcium 9.4 Phosphorus Magnesium Total Bilirubin 0.3 AST 20 ALT 28 Alkaline Phosphatase 73 D Creatine Kinase CK-MB (CK-2) Troponin I Total Protein 7.1 Albumin 3.1 L TSH Serum , Qual Urine Color Urine Appearance Urine pH Ur Specific [place] Urine Protein Urine Glucose (UA) Urine Ketones Urine Blood Urine Nitrite Urine Bilirubin Urine Urobilinogen Ur Leukocyte Esterase Urine WBC (Auto) Urine RBC (Auto) Ur Epithelial Cells Urine Mucus Stool O & P [place] Absolute CD3 Count % CD3+ Lymphocytes Absolute CD4 [place] % CD4+ Lymphocyte CD4/CD8 Ratio % CD8+ Lymphocyte Absolute CD8 Count HIV-1 RNA Quant HIV-1 RNA (PCR) log10 O & P Permanent Slide Assessment/Plan - Problems (1) Acute on chronic respiratory failure with hypoxia and hypercapnia Code(s): J96.21 - ACUTE AND CHRONIC RESPIRATORY FAILURE WITH HYPOXIA; J96.22 - ACUTE AND CHRONIC RESPIRATORY FAILURE WITH HYPERCAPNIA (2) Laryngeal carcinoma Code(s): C32.9 - MALIGNANT NEOPLASM OF LARYNX, UNSPECIFIED (3) AIDS Code(s): B20 - HUMAN IMMUNODEFICIENCY VIRUS [HIV] DISEASE (4) Cough Code(s): R05 - COUGH (5) Tobacco dependence Code(s): F17.200 - NICOTINE DEPENDENCE, UNSPECIFIED, UNCOMPLICATED (6) Tracheostomy dependence Code(s): Z93.0 - TRACHEOSTOMY STATUS (7) Atypical chest pain Assessment/Plan: Chest pain after coughing; no prior hx chest pain. She walks relatively frequently, and denies exertional chest discomfort. No acute STT changes on EKG. TNI <0.02 on multiple checks. Cholesterol well-controlled. F/u TFTs (decreased TSH earler thisw year) ECHO 2016: normal LVEF; ? small, loculated pericardial effusion; will repeat for chamber sizes, LVEF, r/u effusion. Code(s): R07.89 - OTHER CHEST PAIN (8) Acute on chronic diastolic CHF (congestive heart failure) Assessment/Plan: Dyspnea on mild exertion. Pleural effusion on CXR. F/u BNP. ECHO for LVEF, wall thickness and motion, valve status, chamber sizes. F/u BUN/Cr, Is and Os, daily weight, electrolytes. Code(s): I50.33 - ACUTE ON CHRONIC DIASTOLIC (CONGESTIVE) HEART FAILURE
[2018-04-09 16:28] LABS: PLEURAL FLUID APPEARANCE HAZY; PLEURAL FLUID COLOR PINK
[2018-04-09 17:13] LABS: PLEURAL FLUID NEUTROPHIL 52 %
[2018-04-09 17:14] LABS: PLEURAL FLUID LYMPHOCYTES 25 %; PLEURAL FLUID MESOTHELIAL 22 %
[2018-04-09] MEDS: FAMOTIDINE 20 MG/50 ML IVPB 20 MG/50 ML MG IVPB SCH ×2 (18:53→21:31)
[2018-04-09] MEDS: clonazePAM 0.5 MG TABLET GT PRN (18:53)
[2018-04-09] MEDS: HEPARIN NA (PORCINE) 5,000 UNITS/ML 1ML VIAL SQ SCH (21:30)
[2018-04-09] MEDS: MIRTAZAPINE 15 MG TABLET (FP) PEG SCH (21:31)
[2018-04-09] MEDS: traMADol HCL 50 MG TABLET PO PRN (21:36)
[2018-04-09] MEDS ORDERED: LIDOCAINE PATCH REMOVAL MC ONE (22:00)
[2018-04-10] MEDS ORDERED: DEXTROSE 5%-WATER - 50 ML IVPB ONE ×3 (01:39→17:07)
[2018-04-10] MEDS ORDERED: ceFAZolin SODIUM 1 GM VIAL ONE ×3 (01:39→17:07)
[2018-04-10] MEDS: CEFAZOLIN 1 GM in DEXTROSE 5%-WATER - 50 ML IVPB SCH ×3 (01:44→17:11)
[2018-04-10] MEDS: clonazePAM 0.5 MG TABLET GT PRN ×2 (03:41→18:14)
[2018-04-10] MEDS: HEPARIN NA (PORCINE) 5,000 UNITS/ML 1ML VIAL SQ SCH ×3 (05:39→23:26)
[2018-04-10] MEDS: ALBUTEROL SO4 0.083% IH SOL 2.5 MG/3 ML VIAL.NEB. NEB SCH ×5 (05:50→21:20)
[2018-04-10] MEDS: ACETYLCYSTEINE 20% 200MG/ML 4 ML VIAL *FOR ORAL / INH USE ONLY NEB SCH ×5 (05:50→21:20)
[2018-04-10 06:54] LABS: BASO % 0.1 % (0-2.0); HEMATOCRIT 31.8 % (32.4-45.2); HEMOGLOBIN 10.5 GM/dL (10.7-15.3); LYMPH % 6.8 % (8-40); MCH 32.6 pg (25.7-33.7); MEAN PLT VOLUME 8.5 fl (7.5-11.1); MONO % 2.1 % (3.8-10.2); PLATELET COUNT 379 K/MM3 (134-434); RBC 3.21 M/mm3 (3.60-5.2); RDW 14.8 % (11.6-15.6); WHITE BLOOD COUNT 13.9 K/mm3 (4.0-10.0)
[2018-04-10 07:41] LABS: CHLORIDE 99 mmol/L (98-107); POTASSIUM 4.2 mmol/L (3.5-5.1); SODIUM 137 mmol/L (136-145)
[2018-04-10 08:04] LABS: ALBUMIN 2.5 g/dl (3.4-5.0); ALK PHOS 57 U/L (45-117); ANION GAP 9 MMOL/L (8-16); BILIRUBIN,TOTAL 0.4 mg/dL (0.2-1.0); BLOOD UREA NITROGEN 32 mg/dL (7-18); CALCIUM 8.5 mg/dL (8.5-10.1); CO2 29 mmol/L (21-32); CREATININE 0.5 mg/dL (0.55-1.02); GLUCOSE,RANDOM 150 mg/dL (74-106); MAGNESIUM 2.5 mg/dL (1.8-2.4); N-TERMINAL BNP 291.08 pg/ml (5-125); SGOT/AST 23 U/L (15-37); SGPT/ALT 22 U/L (12-78); TOT PROT 6.1 g/dl (6.4-8.2)
--- NOTE | 2018-04-10 09:04 | PN ---
Progress Note, Physician Chief Complaint: Coverage for Malebeatrizicz No acute distress TELE: off - Current Medication List Current Medications: Active Medications Acetaminophen (Tylenol -) 650 mg PO Q6H PRN PRN Reason: FEVER Last Admin: 04/09/18 21:30 Dose: 650 mg Acetylcysteine (Mucomyst 20 Oral / Inh Use Only*) 200 mg NEB Q4HWA [facility] Last Admin: 04/10/18 05:50 Dose: 200 mg Albuterol Sulfate (Ventolin 0.083% Nebulizer Soln -) 1 amp NEB Q4HWA [facility] Last Admin: 04/10/18 05:50 Dose: 1 amp Amino Acids (Prosource No Carb Liquid Pkt) 30 ml GT BID@0800,1730 [facility] Last Admin: 04/09/18 18:51 Dose: 30 ml Budesonide/Formoterol Fumarate (Symbicort 160/4.5mcg -) 2 puff IH BID [facility] Last Admin: 04/09/18 22:36 Dose: 2 puff Clonazepam (Klonopin -) 0.25 mg GT Q6HPO PRN PRN Reason: ANXIETY Last Admin: 04/10/18 03:41 Dose: 0.25 mg Emtricitabine/Tenofovir (Truvada) 1 tab PO DAILY [facility] Last Admin: 04/09/18 14:18 Dose: 1 tab Etravirine (Intelence -) 100 mg PO BIDPC [facility] Last Admin: 04/09/18 18:54 Dose: 100 mg Fluticasone Propionate (Flonase -) 1 spray NS DAILY [facility] Last Admin: 04/09/18 14:15 Dose: 1 spray Gabapentin (Neurontin Oral Liquid -) 250 mg PEG BID [facility] Last Admin: 04/09/18 21:31 Dose: 250 mg Heparin Sodium (Porcine) (Heparin -) 5,000 unit SQ TID [facility] Last Admin: 04/10/18 05:39 Dose: 5,000 unit Famotidine/Sodium Chloride (Pepcid 20 Mg Premixed Ivpb -) 20 mg in 50 mls @ 100 mls/hr IVPB BID [facility] Last Admin: 04/09/18 21:31 Dose: Not Given Cefazolin Sodium 1 gm/ (Dextrose) 50 mls @ 100 mls/hr IVPB Q8H-IV [facility] Last Admin: 04/10/18 01:44 Dose: 100 mls/hr Sodium Chloride (Normal Saline -) 1,000 mls @ 50 mls/hr IV ASDIR [facility] Stop: 04/10/18 14:53 Last Admin: 04/09/18 15:00 Dose: 50 mls/hr Lactobacillus Acidophilus (Bacid -) 1 tab PO DAILY [facility] Last Admin: 04/09/18 14:15 Dose: 1 tab Melatonin (Melatonin) 5 mg PO HS PRN PRN Reason: INSOMNIA Last Admin: 04/08/18 22:03 Dose: 5 mg Methylprednisolone Sodium Succinate (Solu-Medrol -) 40 mg IVPUSH BID [facility] Last Admin: 04/09/18 21:31 Dose: 40 mg Mirtazapine (Remeron -) 15 mg PEG HS [facility] Last Admin: 04/09/18 21:31 Dose: 15 mg Raltegravir (Isentress -) 400 mg NR BID [facility] Last Admin: 04/09/18 21:32 Dose: 400 mg Sertraline HCl (Zoloft -) 50 mg PO DAILY [facility] Last Admin: 04/09/18 14:20 Dose: 50 mg Tramadol HCl (Ultram -) 50 mg PO Q6H PRN PRN Reason: PAIN LEVEL 4 - 6 Last Admin: 04/09/18 21:36 Dose: 50 mg Zolpidem Tartrate (Ambien -) 5 mg PO HS PRN PRN Reason: INSOMNIA Last Admin: 04/08/18 22:03 Dose: 5 mg - Objective Vital Signs: Vital Signs Temperature 99.2 F 04/10/18 06:00 Pulse Rate 90 04/10/18 06:00 Respiratory Rate 20 04/10/18 06:00 Blood Pressure 98/66 04/10/18 06:00 O2 Sat by Pulse Oximetry (%) 100 04/09/18 21:00 Constitutional: Yes: No Distress Cardiovascular: Yes: Regular Rate and Rhythm Respiratory: Yes: Rhonchi, Other (no active wheezing) Gastrointestinal: Yes: Soft Edema: No Neurological: Yes: Alert, Oriented Labs: CBC, BMP 04/10/18 05:30 04/10/18 05:30 INR, PTT INR 1.02 (0.83-1.09) 04/09/18 09:27 - ....Imaging EKG: Image Reviewed Assessment/Plan IMP: Laryngeal CA Acute on chronic respiratory failure Mild chronic diastolic CHF -improved Small pericardial effusion REC: 1. Supportive care 2. DVT prophylaxis 3. Would repeat echo to follow pericardial effusion in 4 weeks and/or if clinical change Coverage for Malendowicz
[2018-04-10] MEDS: LACTOBACILLUS ACIDOPHILUS 1 TABLET PO SCH (09:40)
[2018-04-10] MEDS: AMINO ACIDS/PROTEIN HYDROLYS 30 ML LIQUID.PKT GT SCH ×2 (09:40→17:04)
[2018-04-10] MEDS: SERTRALINE HCL 50 MG TABLET (FP) PO SCH (09:41)
[2018-04-10] MEDS: methylPREDNISolone NA SUCC 40 MG/1 ML VIAL IVPUSH SCH ×2 (09:41→23:27)
[2018-04-10] MEDS: FAMOTIDINE 20 MG/50 ML IVPB 20 MG/50 ML MG IVPB SCH ×2 (09:41→23:26)
[2018-04-10] MEDS: RALTEGRAVIR POTASSIUM 400 MG TAB NR SCH ×2 (09:44→23:25)
[2018-04-10] MEDS: EMTRICITABINE 200MG/TENOFOVIR 300MG PO SCH (09:44)
[2018-04-10] MEDS: GABAPENTIN 250 MG/5 ML ORAL SOLUTION, 470 ML BOTTLE PEG SCH ×2 (09:45→23:26)
[2018-04-10] MEDS: BUDESONIDE/FORMETEROL FUMARATE 160/4.5 mcg INHALER IH SCH (09:45)
[2018-04-10] MEDS: ETRAVIRINE 100 MG TABLET PO SCH ×2 (09:45→17:30)
[2018-04-10] MEDS: FLUTICASONE PROP 0.05% 16 GM NASAL SPRAY NS SCH (09:45)
--- NOTE | 2018-04-10 09:59 | PN ---
Progress Note (short form) - Note Progress Note: PULMONARY SPIKED TO 103 LAST PM/AFEBRILE NOW AWAKE/ALERT ANICTERIC/TRACH SCATTERED RHONCHI S1S2 BS+ NO EDEMA LABS/MEDS/IMAGES/NOTES MICRO REVIEWED POST THORACENTESIS TEMP SPIKE FLUID CHEMISTRIES ARE PENDING A/P Pneumonia ARDS resolving Klebsiella Bacteremia Sepsis HIV/AIDS h/o Laryngeal Ca s/p trach/PEG - ID eval/continue antibiotics - check pleural fluid parameters - inhaled bronchodilators with mucomyst - pain control - chest PT/bed percussion - taper Fio2 to keep SpO2 >90% - continue ART - DVT prophylaxis - steroids - f/u chest x-ray Jan VELÁZQUEZ MD
--- NOTE | 2018-04-10 11:28 | PN ---
Physical Exam: SUBJECTIVE: Patient seen and examined at the bedside. OBJECTIVE: Had one episode of chills overnight and fever as high as 103. I received the call and ordered blood and urine cultures which are pending. Patient feels well today, in no acute distress. no other fevers recorded. Discussed with ID. IV antibiotics to continue. Patient is st/p gt replacement and s/p right thoracentesis Vital Signs Period Temp Pulse Resp BP Sys/Lisa Pulse Ox Last 24 Hr 98.3 F-103.2 F 90-125 18-26 75-115/54-87 99-100 GENERAL: The patient is awake, alert, and fully oriented, in no acute distress, anxious HEAD: Normal with no signs of trauma, trach capped EYES: PERRL, extraocular movements intact, sclera anicteric, conjunctiva clear. No ptosis. ENT: Ears normal, nares patent, oropharynx clear without exudates NECK: Trachea midline, full range of motion, supple. LUNGS: bilateral posterior lungs with scattered rhonchi but overall improving, s /p right sided thoracentesis 04/09 with 60cc removal HEART: Regular rate and rhythm ABDOMEN: new g tube in place PSYCH: anxious overnight, calmer now. SKIN: Warm, dry, normal turgor, no rashes or lesions noted Laboratory Results - last 24 hr 04/09/18 04/09/18 04/10/18 12:30 22:30 05:30 WBC 13.9 H RBC 3.21 L Hgb 10.5 L Hct 31.8 L MCV 99.0 H MCH 32.6 MCHC 33.0 RDW 14.8 Plt Count 379 D MPV 8.5 Absolute Neuts (auto) 12.7 H Neutrophils % 91.0 H Lymphocytes % 6.8 L D Monocytes % 2.1 L Eosinophils % 0.0 D Basophils % 0.1 Nucleated RBC % 0 Sodium Potassium Chloride Carbon Dioxide Anion Gap BUN Creatinine Creat Clearance w eGFR Random Glucose Lactic Acid 1.8 Calcium Magnesium Total Bilirubin AST ALT Alkaline Phosphatase B-Natriuretic Peptide Total Protein Albumin Pleural Fluid Source Right pleural Pleural Color [place] Pleural Appearance Hazy Pleural WBC 1,210 Pleural RBC 16,843 Pleural Neutrophils 52 Pleural Lymphocytes 25 Pleural Mesothelial 22 04/10/18 04/10/18 05:30 05:30 WBC RBC Hgb Hct MCV MCH MCHC RDW Plt Count MPV Absolute Neuts (auto) Neutrophils % Lymphocytes % Monocytes % Eosinophils % Basophils % Nucleated RBC % Sodium 137 Potassium 4.2 Chloride 99 Carbon Dioxide 29 Anion Gap 9 BUN 32 H Creatinine 0.5 L Creat Clearance w eGFR > 60 Random Glucose 150 H Lactic Acid Calcium 8.5 Magnesium 2.5 H Total Bilirubin 0.4 AST 23 ALT 22 Alkaline Phosphatase 57 D B-Natriuretic Peptide 291.08 H Cancelled Total Protein 6.1 L Albumin 2.5 L Pleural Fluid Source Pleural Color Pleural Appearance Pleural WBC Pleural RBC Pleural Neutrophils Pleural Lymphocytes Pleural Mesothelial Active Medications Generic Name Dose Route Start Last Admin Trade Name Freq PRN Reason Stop Dose Admin Acetaminophen 650 mg 04/03/18 15:41 04/09/18 21:30 Tylenol - PO 650 mg Q6H PRN Administration FEVER Acetylcysteine 200 mg 04/03/18 10:30 04/10/18 09:39 Mucomyst 20 Oral / Inh Use Only* NEB 200 mg Q4HWA RAZ Administration Albuterol Sulfate 1 amp 04/03/18 10:30 04/10/18 09:39 Ventolin 0.083% Nebulizer Soln - NEB 1 amp Q4HWA RAZ Administration Amino Acids 30 ml 04/07/18 20:14 04/10/18 09:40 Prosource No Carb Liquid Pkt GT 30 ml BID@0800,1730 RAZ Administration Budesonide/Formoterol Fumarate 2 puff 04/03/18 22:00 04/10/18 09:45 Symbicort 160/4.5mcg - IH 2 puff BID RAZ Administration Clonazepam 0.25 mg 04/09/18 07:18 04/10/18 03:41 Klonopin - GT 0.25 mg Q6HPO PRN Administration ANXIETY Emtricitabine/Tenofovir 1 tab 04/04/18 10:00 04/10/18 09:44 Truvada PO 1 tab DAILY RAZ Administration Etravirine 100 mg 04/03/18 18:30 04/10/18 09:45 Intelence - PO 100 mg BIDPC RAZ Administration Fluticasone Propionate 1 spray 04/04/18 10:00 04/10/18 09:45 Flonase - NS 1 spray DAILY RAZ Administration Gabapentin 250 mg 04/03/18 22:00 04/10/18 09:45 Neurontin Oral Liquid - PEG 250 mg BID RAZ Administration Heparin Sodium (Porcine) 5,000 unit 04/03/18 22:00 04/10/18 05:39 Heparin - SQ 5,000 unit TID RAZ Administration Famotidine/Sodium Chloride 20 mg in 50 mls @ 100 mls/hr 04/03/18 22:00 09:41 Pepcid 20 Mg Premixed Ivpb - IVPB 100 mls/hr BID RAZ Administration Cefazolin Sodium 1 gm/ 50 mls @ 100 mls/hr 04/03/18 18:00 04/10/18 09:40 Dextrose IVPB 100 mls/hr Q8H-IV RAZ Administration Sodium Chloride 1,000 mls @ 50 mls/hr 04/09/18 15:00 04/09/18 15:00 Normal Saline - IV 04/10/18 14:53 50 mls/hr ASDIR RAZ Administration Lactobacillus Acidophilus 1 tab 04/03/18 10:45 04/10/18 09:40 Bacid - PO 1 tab DAILY RAZ Administration Melatonin 5 mg 04/03/18 15:41 04/08/18 22:03 Melatonin PO 5 mg HS PRN Administration INSOMNIA Methylprednisolone Sodium Succinate 40 mg 04/05/18 10:00 04/10/18 09:41 Solu-Medrol - IVPUSH 40 mg BID RAZ Administration Mirtazapine 15 mg 04/03/18 22:00 04/09/18 21:31 Remeron - PEG 15 mg HS RAZ Administration Raltegravir 400 mg 04/03/18 22:00 04/10/18 09:44 Isentress - NR 400 mg BID RAZ Administration Sertraline HCl 50 mg 04/04/18 10:00 04/10/18 09:41 Zoloft - PO 50 mg DAILY RAZ Administration Tramadol HCl 50 mg 04/03/18 12:02 04/09/18 21:36 Ultram - PO 50 mg Q6H PRN Administration PAIN LEVEL 4 - 6 Zolpidem Tartrate 5 mg 04/04/18 12:17 04/08/18 22:03 Ambien - PO 5 mg HS PRN Administration INSOMNIA ASSESSMENT/PLAN: Patient is a 47 year old female with a significant past medical history of +HIV , laryngeal cancer, chronic trach, PEG tube, hepatitis B and failure to thrive. Patient presented to the ED with symptoms of nausea, vomiting, diarrhea, cough and fever. ID: Manjula negative sepsis in the setting of HIV and laryngeal cancer, resolved. Blood cultures 03/28 +kleb, repeat blood cultures negative. on Cefazolin antibiotics per ID. Pulm: Chronic trach/shortness of breath/Asthma/COPD: On scheduled duonebs with mucomyst. continue solumedrol BID per pulmonary Pneumonia/COPD exacerbation. On bronchodilators and chest percussion. Pleural effusions: Bilateral pleural effusions seen on CT scan. right > left, s/p thoracentesis on 04/09/18 with 60cc of sero sang drainage, cultures pending. Onc: Laryngeal carcinoma, has chronic trach and feeds via peg tube. Needs MBS to evaluate swallowing function. Seen by speech and swallow. Pt made aware that MBS could not be done until patient has her trach changed and provox can be used. On GT feedings of high calorie boost, had new GT replaced, but port too small. IR requested to intervene. Prosource bid. dietary following. HIV: Continue home antiviral therapy. Neuro Anxiety history. Anxious overnight. klonopin increased to q6 prn. GI: GTube: new GT replaced ..18 by GI, port too small, replaced by IR on 04/09/18. prophy: Heparin swallow evaluation, will need MBS. aspiration precautions. fen GT feeds, given boost supplements via gravity and prosource bid. monitor electrolytes On continuous pulse monitoring. Visit type - Emergency Visit Emergency Visit: Yes ED Registration Date: 03/28/18 Care time: The patient presented to the Emergency Department on the above date and was hospitalized for further evaluation of their emergent condition. - New Patient This patient is new to me today: No - Critical Care Critical Care patient: No - Discharge Referral Referred to [facility] Med P.C.: No
[2018-04-10 11:37] LABS: ANISOCYTOSIS 1+; MACROCYTOSIS 1+; PLATELET ESTIMATE NORMAL
--- NOTE | 2018-04-10 12:21 | PN ---
Progress Note (short form) - Note Progress Note: fever to 103 overnight-no symptoms- blood cultures sent s/p thoracentesis 60 cc serosanguinous fluid yesterday gt changed as well yesterday Vital Signs Period Temp Pulse Resp BP Sys/Lisa Pulse Ox Last 24 Hr 98.3 F-103.2 F 90-125 18-26 85-115/57-87 99-100 cor-rrr lungs bilateral rhonchi abd- soft,nt, GT ext no edema +trach CBC, BMP 04/10/18 05:30 04/10/18 05:30 Microbiology 04/09/18 12:30 Pleural Fluid Body Fluid Culture - Preliminary NO AEROBIC GROWTH, 24 HRS 04/09/18 12:30 Pleural Fluid RAE Preparation - Preliminary 04/09/18 12:30 Pleural Fluid Fungal Culture - Preliminary 04/03/18 05:40 Blood - Peripheral Venous Blood Culture - Final NO GROWTH AFTER 5 DAYS INCUBATION 04/03/18 05:30 Blood - Peripheral Venous Blood Culture - Final NO GROWTH AFTER 5 DAYS INCUBATION 03/30/18 20:30 Blood - Peripheral Venous Blood Culture - Final NO GROWTH AFTER 5 DAYS INCUBATION 03/30/18 18:00 Blood - Peripheral Venous Blood Culture - Final NO GROWTH AFTER 5 DAYS INCUBATION 03/28/18 12:35 Blood - Peripheral Venous Blood Culture - Final Klebsiella Pneumoniae 03/28/18 12:35 Blood - Peripheral Venous Blood Culture - Final Klebsiella Pneumoniae 03/28/18 12:50 Urine - Urine Clean Catch Urine Culture - Final a/p fever to 103 last night- f/u cultures klebsiella bacteremia/pneumonia day #13 cefazolin- to continue slowly improving f/u thoracentesis results HIV- stable-continue meds history of laryngeal cancer d/w hospitalist
[2018-04-10] MEDS: traMADol HCL 50 MG TABLET PO PRN (15:21)
[2018-04-10 15:54] LABS: GLUCOSE,PLEURAL FLUID 80.85; TOTAL PROTEIN,PLEURAL FLUID 5.029
[2018-04-10] MEDS: ACETAMINOPHEN 325 MG TABLET (FP) PO PRN (18:36)
[2018-04-10] MEDS: MIRTAZAPINE 15 MG TABLET (FP) PEG SCH (23:27)
[2018-04-10] MEDS: ZOLPIDEM TARTRATE 5 MG TABLET PO PRN (23:28)
[2018-04-11] MEDS: BUDESONIDE/FORMETEROL FUMARATE 160/4.5 mcg INHALER IH SCH ×2 (00:09→09:38)
[2018-04-11] MEDS: CEFAZOLIN 1 GM in DEXTROSE 5%-WATER - 50 ML IVPB SCH ×2 (02:00→09:16)
[2018-04-11] MEDS ORDERED: DEXTROSE 5%-WATER - 50 ML IVPB ONE ×4 (02:44→16:57)
[2018-04-11] MEDS ORDERED: ceFAZolin SODIUM 1 GM VIAL ONE ×2 (02:44→08:55)
[2018-04-11] MEDS: ACETYLCYSTEINE 20% 200MG/ML 4 ML VIAL *FOR ORAL / INH USE ONLY NEB SCH ×5 (04:00→21:40)
[2018-04-11] MEDS: ALBUTEROL SO4 0.083% IH SOL 2.5 MG/3 ML VIAL.NEB. NEB SCH ×5 (04:00→21:40)
[2018-04-11] MEDS: ACETAMINOPHEN 325 MG TABLET (FP) PO PRN ×2 (05:11→17:08)
[2018-04-11] MEDS: clonazePAM 0.5 MG TABLET GT PRN ×2 (05:16→17:08)
[2018-04-11] MEDS: HEPARIN NA (PORCINE) 5,000 UNITS/ML 1ML VIAL SQ SCH ×2 (06:38→13:11)
[2018-04-11] MEDS: LACTOBACILLUS ACIDOPHILUS 1 TABLET PO SCH (09:16)
[2018-04-11] MEDS: AMINO ACIDS/PROTEIN HYDROLYS 30 ML LIQUID.PKT GT SCH ×2 (09:16→17:07)
[2018-04-11] MEDS: methylPREDNISolone NA SUCC 40 MG/1 ML VIAL IVPUSH SCH (09:17)
[2018-04-11] MEDS: SERTRALINE HCL 50 MG TABLET (FP) PO SCH (09:17)
[2018-04-11] MEDS: FAMOTIDINE 20 MG/50 ML IVPB 20 MG/50 ML MG IVPB SCH (09:17)
[2018-04-11] MEDS: GABAPENTIN 250 MG/5 ML ORAL SOLUTION, 470 ML BOTTLE PEG SCH (09:36)
[2018-04-11] MEDS: ETRAVIRINE 100 MG TABLET PO SCH ×2 (09:36→18:33)
[2018-04-11] MEDS: EMTRICITABINE 200MG/TENOFOVIR 300MG PO SCH (09:36)
[2018-04-11] MEDS: RALTEGRAVIR POTASSIUM 400 MG TAB NR SCH (09:36)
[2018-04-11] MEDS: FLUTICASONE PROP 0.05% 16 GM NASAL SPRAY NS SCH (09:37)
[2018-04-11] MEDS: traMADol HCL 50 MG TABLET PO PRN (09:45)
--- NOTE | 2018-04-11 09:50 | PN ---
Progress Note, Physician Chief Complaint: comfortable. No further temp spikes noted. Low grade temp - Current Medication List Current Medications: Active Medications Acetaminophen (Tylenol -) 650 mg PO Q6H PRN PRN Reason: FEVER Last Admin: 04/11/18 05:11 Dose: 650 mg Acetylcysteine (Mucomyst 20 Oral / Inh Use Only*) 200 mg NEB Q4HWA [facility] Last Admin: 04/11/18 04:00 Dose: 200 mg Albuterol Sulfate (Ventolin 0.083% Nebulizer Soln -) 1 amp NEB Q4HWA [facility] Last Admin: 04/11/18 04:00 Dose: 1 amp Amino Acids (Prosource No Carb Liquid Pkt) 30 ml GT BID@0800,1730 [facility] Last Admin: 04/11/18 09:16 Dose: 30 ml Budesonide/Formoterol Fumarate (Symbicort 160/4.5mcg -) 2 puff IH BID [facility] Last Admin: 04/11/18 09:38 Dose: 2 puff Clonazepam (Klonopin -) 0.25 mg GT Q6HPO PRN PRN Reason: ANXIETY Last Admin: 04/11/18 05:16 Dose: 0.25 mg Emtricitabine/Tenofovir (Truvada) 1 tab PO DAILY [facility] Last Admin: 04/11/18 09:36 Dose: 1 tab Etravirine (Intelence -) 100 mg PO BIDPC [facility] Last Admin: 04/11/18 09:36 Dose: 100 mg Fluticasone Propionate (Flonase -) 1 spray NS DAILY [facility] Last Admin: 04/11/18 09:37 Dose: 1 spray Gabapentin (Neurontin Oral Liquid -) 250 mg PEG BID [facility] Last Admin: 04/11/18 09:36 Dose: 250 mg Heparin Sodium (Porcine) (Heparin -) 5,000 unit SQ TID [facility] Last Admin: 04/11/18 06:38 Dose: 5,000 unit Famotidine/Sodium Chloride (Pepcid 20 Mg Premixed Ivpb -) 20 mg in 50 mls @ 100 mls/hr IVPB BID [facility] Last Admin: 04/11/18 09:17 Dose: 100 mls/hr Cefazolin Sodium 1 gm/ (Dextrose) 50 mls @ 100 mls/hr IVPB Q8H-IV [facility] Last Admin: 04/11/18 09:16 Dose: 100 mls/hr Lactobacillus Acidophilus (Bacid -) 1 tab PO DAILY [facility] Last Admin: 04/11/18 09:16 Dose: 1 tab Melatonin (Melatonin) 5 mg PO HS PRN PRN Reason: INSOMNIA Last Admin: 04/08/18 22:03 Dose: 5 mg Methylprednisolone Sodium Succinate (Solu-Medrol -) 40 mg IVPUSH BID [facility] Last Admin: 04/11/18 09:17 Dose: 40 mg Mirtazapine (Remeron -) 15 mg PEG HS [facility] Last Admin: 04/10/18 23:27 Dose: 15 mg Raltegravir (Isentress -) 400 mg NR BID [facility] Last Admin: 04/11/18 09:36 Dose: 400 mg Sertraline HCl (Zoloft -) 50 mg PO DAILY [facility] Last Admin: 04/11/18 09:17 Dose: 50 mg Tramadol HCl (Ultram -) 50 mg PO Q6H PRN PRN Reason: PAIN LEVEL 4 - 6 Last Admin: 04/11/18 09:45 Dose: 50 mg Zolpidem Tartrate (Ambien -) 5 mg PO HS PRN PRN Reason: INSOMNIA Last Admin: 04/10/18 23:28 Dose: 5 mg - Objective Vital Signs: Vital Signs Temperature 99.8 F H 04/10/18 22:00 Pulse Rate 107 H 04/11/18 06:00 Respiratory Rate 20 04/11/18 06:00 Blood Pressure 115/71 04/11/18 06:00 O2 Sat by Pulse Oximetry (%) 95 04/10/18 21:00 Constitutional: Yes: No Distress Eyes: Yes: Conjunctiva Clear Cardiovascular: Yes: Regular Rate and Rhythm Respiratory: Yes: CTA Bilaterally Gastrointestinal: Yes: Soft Edema: No Neurological: Yes: Alert Labs: CBC, BMP 04/10/18 05:30 INR, PTT INR 1.02 (0.83-1.09) 04/09/18 09:27 - ....Imaging EKG: Pending Assessment/Plan IMP: Pneumonia ARDS resolving Klebsiella Bacteremia Sepsis HIV/AIDS h/o Laryngeal Ca s/p trach/PEG Small pericardial effusion REC: - abx as per ID - Pulmonary following for management of bronchodilators, FiO2 recc and steroid taper -Serial echo f/u for pericardial effusion - Repeat ECG- pt c/o of "accelerated heart rate" which may be due to fever/ infection -DVT prophylaxis
[2018-04-11 10:34] LABS: BASO % 0.2 % (0-2.0); HEMATOCRIT 33.9 % (32.4-45.2); HEMOGLOBIN 10.9 GM/dL (10.7-15.3); LYMPH % 5.8 % (8-40); MCH 32.1 pg (25.7-33.7); MCHC 32.1 g/dl (32.0-36.0); MEAN CELL VOLUME 100.1 fl (80-96); MEAN PLT VOLUME 8.5 fl (7.5-11.1); MONO % 3.5 % (3.8-10.2); NEUT % 90.5 % (42.8-82.8); PLATELET COUNT 456 K/MM3 (134-434); RBC 3.38 M/mm3 (3.60-5.2); RDW 14.7 % (11.6-15.6); WHITE BLOOD COUNT 15.3 K/mm3 (4.0-10.0)
[2018-04-11] MEDS ORDERED: ACETAMINOPHEN 1000 MG/100 ML VIAL (NON FORMULARY) IVPB ONE (10:48)
[2018-04-11 11:06] LABS: ANISOCYTOSIS 1+; MACROCYTOSIS 1+; PLATELET ESTIMATE NORMAL
--- NOTE | 2018-04-11 11:18 | PN ---
Physical Exam: SUBJECTIVE: Patient seen and examined at the bedside. Had chills overnight, feels weak. No abdomnal pain, no shortness of breath. OBJECTIVE: oral temp 98.6, rectal 104.6f with associated chills overnight discussed with ID: started on vanco and zosyn per ID chest xray with no acute changes lactic acid wnl blood cultures re-ordered, blood cult 04/10 prelimin negative x 24 hours abd pelvis w/o ordered Vital Signs Period Temp Pulse Resp BP Sys/Lisa Pulse Ox Last 24 Hr 98.3 F-99.8 F 107-119 18-20 115-124/45-90 95 GENERAL: The patient is awake, alert, and fully oriented, in no acute distress. HEAD: Normal with no signs of trauma. EYES: PERRL, extraocular movements intact, sclera anicteric, conjunctiva clear. No ptosis. ENT: Ears normal, nares patent, oropharynx clear without exudates, moist mucous membranes. NECK: Trachea midline, full range of motion, supple. LUNGS: scattered rhonchi, stable oxygen sats, respiratory treatments scheduled HEART: Regular rate and rhythm, episodes of tachycardia. ABDOMEN: g tube in place, intact EXTREMITIES: no edema. NEUROLOGICAL: Normal speech, gait not observed. PSYCH: Normal mood, normal affect. Laboratory Results - last 24 hr 04/09/18 04/10/18 04/11/18 12:30 05:30 09:40 WBC RBC Hgb Hct MCV MCH MCHC RDW Plt Count MPV Absolute Neuts (auto) Neutrophils % Neutrophils % (Manual) 61.0 Band Neutrophils % 29.5 Lymphocytes % Lymphocytes % (Manual) 6.3 L D Monocytes % Monocytes % (Manual) 3 L D Eosinophils % Eosinophils % (Manual) 0.0 D Basophils % Basophils % (Manual) 0.0 Myelocytes % (Man) 0 Promyelocytes % (Man) 0 Blast Cells % (Manual) 0 Nucleated RBC % 0 Metamyelocytes 0 Hypochromia 0 Platelet Estimate Normal Polychromasia 1+ Poikilocytosis 0 Anisocytosis 1+ Macrocytosis 1+ Stomatocytes Magnesium Cancelled Pleural Total Protein 5.029 Pleural Albumin 2 Pleural LDH 324.1 Pleural Glucose 80.85 Pleural Amylase 20.16 Pleural Triglycerides 43 04/11/18 10:25 WBC 15.3 H RBC 3.38 L Hgb 10.9 Hct 33.9 MCV 100.1 H MCH 32.1 MCHC 32.1 RDW 14.7 Plt Count 456 H D MPV 8.5 Absolute Neuts (auto) 13.9 H Neutrophils % 90.5 H Neutrophils % (Manual) 84.8 H Band Neutrophils % 7.1 Lymphocytes % 5.8 L Lymphocytes % (Manual) 6.1 L Monocytes % 3.5 L Monocytes % (Manual) 2 L Eosinophils % 0.0 Eosinophils % (Manual) 0.0 Basophils % 0.2 Basophils % (Manual) 0.0 Myelocytes % (Man) 0 Promyelocytes % (Man) 0 Blast Cells % (Manual) 0 Nucleated RBC % 0 Metamyelocytes 0 Hypochromia 0 Platelet Estimate Normal Polychromasia 0 Poikilocytosis 1+ Anisocytosis 1+ Macrocytosis 1+ Stomatocytes 1+ Magnesium Pleural Total Protein Pleural Albumin Pleural LDH Pleural Glucose Pleural Amylase Pleural Triglycerides Active Medications Generic Name Dose Route Start Last Admin Trade Name Freq PRN Reason Stop Dose Admin Acetaminophen 650 mg 04/03/18 15:41 04/11/18 05:11 Tylenol - PO 650 mg Q6H PRN Administration FEVER Acetylcysteine 200 mg 04/03/18 10:30 04/11/18 04:00 Mucomyst 20 Oral / Inh Use Only* NEB 200 mg Q4HWA RAZ Administration Albuterol Sulfate 1 amp 04/03/18 10:30 04/11/18 04:00 Ventolin 0.083% Nebulizer Soln - NEB 1 amp Q4HWA RAZ Administration Amino Acids 30 ml 04/07/18 20:14 04/11/18 09:16 Prosource No Carb Liquid Pkt GT 30 ml BID@0800,1730 RAZ Administration Budesonide/Formoterol Fumarate 2 puff 04/03/18 22:00 04/11/18 09:38 Symbicort 160/4.5mcg - IH 2 puff BID RAZ Administration Clonazepam 0.25 mg 04/09/18 07:18 04/11/18 05:16 Klonopin - GT 0.25 mg Q6HPO PRN Administration ANXIETY Emtricitabine/Tenofovir 1 tab 04/04/18 10:00 04/11/18 09:36 Truvada PO 1 tab DAILY RAZ Administration Etravirine 100 mg 04/03/18 18:30 04/11/18 09:36 Intelence - PO 100 mg BIDPC RAZ Administration Fluticasone Propionate 1 spray 04/04/18 10:00 04/11/18 09:37 Flonase - NS 1 spray DAILY RAZ Administration Gabapentin 250 mg 04/03/18 22:00 04/11/18 09:36 Neurontin Oral Liquid - PEG 250 mg BID RAZ Administration Heparin Sodium (Porcine) 5,000 unit 04/03/18 22:00 04/11/18 06:38 Heparin - SQ 5,000 unit TID RAZ Administration Famotidine/Sodium Chloride 20 mg in 50 mls @ 100 mls/hr 04/03/18 22:00 09:17 Pepcid 20 Mg Premixed Ivpb - IVPB 100 mls/hr BID RAZ Administration Cefazolin Sodium 1 gm/ 50 mls @ 100 mls/hr 04/03/18 18:00 04/11/18 09:16 Dextrose IVPB 100 mls/hr Q8H-IV RAZ Administration Lactobacillus Acidophilus 1 tab 04/03/18 10:45 04/11/18 09:16 Bacid - PO 1 tab DAILY RAZ Administration Melatonin 5 mg 04/03/18 15:41 04/08/18 22:03 Melatonin PO 5 mg HS PRN Administration INSOMNIA Methylprednisolone Sodium Succinate 40 mg 04/05/18 10:00 04/11/18 09:17 Solu-Medrol - IVPUSH 40 mg BID RAZ Administration Mirtazapine 15 mg 04/03/18 22:00 04/10/18 23:27 Remeron - PEG 15 mg HS RAZ Administration Raltegravir 400 mg 04/03/18 22:00 04/11/18 09:36 Isentress - NR 400 mg BID RAZ Administration Sertraline HCl 50 mg 04/04/18 10:00 04/11/18 09:17 Zoloft - PO 50 mg DAILY RAZ Administration Tramadol HCl 50 mg 04/03/18 12:02 04/11/18 09:45 Ultram - PO 50 mg Q6H PRN Administration PAIN LEVEL 4 - 6 Zolpidem Tartrate 5 mg 04/04/18 12:17 04/10/18 23:28 Ambien - PO 5 mg HS PRN Administration INSOMNIA ASSESSMENT/PLAN: Patient is a 47 year old female with a significant past medical history of +HIV , laryngeal cancer, chronic trach, PEG tube, hepatitis B and failure to thrive. Patient presented to the ED on 03/28/2018 with symptoms of nausea, vomiting, diarrhea, cough and fever. Hospitalization complicated for acute shortness of breath and patient was transferred to the ICU and placed on a mechanical ventilator. ID: Gram negative sepsis in the setting of HIV and laryngeal cancer. Blood cultures 03/28 +kleb, repeat blood cultures negative. Patient was most recently on Cefazolin antibiotics per ID, however, patient developed a fever with associated chills yesterday and again today. Tmax 104.6. Patient now started on vancomycin and zosyn per ID. Her blood cultures have been repeated and pending. Chest xray negative for acute process. lactic acid within normal limits. Abdomen/pelvis CT w/o contrast ordered to further evaluate cause of fevers. Given one time dose of tylenol 750mg IV (weight based). Awaiting ct abd findings. She has no abdominal pain, denies any nausea or vomiting. unclear etiology of fevers but fevers. Pulm: Chronic trach/shortness of breath/Asthma/COPD/pneumonia: On scheduled duonebs with mucomyst and chest percussion. Pleural effusions: Bilateral pleural effusions seen on CT scan. right > left, s/p thoracentesis on 04/09/18 with 60cc of sero sang drainage, cultures pending. Onc: Laryngeal carcinoma, has chronic trach and feeds via peg tube. Needs MBS to evaluate swallowing function. Seen by speech and swallow. Pt made aware that MBS could not be done until patient has her trach changed and provox can be used. On GT feedings of high calorie boost which is her home nutrition. new GT replaced 9.18 by GI, port too small, replaced by IR on . HIV: Continue home antiviral therapy. Neuro Anxiety history. klonopin increased to q6 prn. GI: GTube: prophy: Heparin swallow evaluation, will need MBS. aspiration precautions. fen GT feeds, given boost supplements via gravity and prosource bid. monitor electrolytes On continuous pulse monitoring. Visit type - Emergency Visit Emergency Visit: Yes ED Registration Date: 03/28/18 Care time: The patient presented to the Emergency Department on the above date and was hospitalized for further evaluation of their emergent condition. - New Patient This patient is new to me today: No - Critical Care Critical Care patient: No - Discharge Referral Referred to [facility] No
[2018-04-11 11:19] LABS: CHLORIDE 101 mmol/L (98-107); POTASSIUM 4.3 mmol/L (3.5-5.1); SODIUM 138 mmol/L (136-145)
[2018-04-11 11:48] LABS: ALBUMIN 2.7 g/dl (3.4-5.0); ALK PHOS 69 U/L (45-117); ANION GAP 11 MMOL/L (8-16); BILIRUBIN,TOTAL 0.4 mg/dL (0.2-1.0); BLOOD UREA NITROGEN 27 mg/dL (7-18); CO2 26 mmol/L (21-32); CREATININE 0.5 mg/dL (0.55-1.02); GLUCOSE,RANDOM 125 mg/dL (74-106); MAGNESIUM 2.3 mg/dL (1.8-2.4); SGOT/AST 19 U/L (15-37); SGPT/ALT 19 U/L (12-78); TOT PROT 6.7 g/dl (6.4-8.2)
--- NOTE | 2018-04-11 11:57 | PN ---
Progress Note (short form) - Note Progress Note: PULMONARY LOW GRADE AWAKE/ALERT ANICTERIC/TRACH SCATTERED RHONCHI S1S2 BS+ NO EDEMA LABS/MEDS/IMAGES/NOTES/ MICRO REVIEWED CXR: PLEURAL EFFUSION DIMINISHED POST THORACENTESIS TEMP SPIKE EXUDATIVE NONCOMPLICATED PARA-PNEUMONIC EFFUSION A/P Pneumonia Uncomplicated para pneumonic effusion Klebsiella Bacteremia Sepsis HIV/AIDS h/o Laryngeal Ca s/p trach/PEG - ID eval/continue antibiotics - inhaled bronchodilators with mucomyst - pain control - chest PT/bed percussion - taper Fio2 to keep SpO2 >90% - continue ART - DVT prophylaxis - steroids - f/u chest x-ray Jan VELÁZQUEZ MD
--- NOTE | 2018-04-11 12:30 | PN ---
Progress Note (short form) - Note Progress Note: febrile to 104 today she reports chills nightly and has felt hot- for "days" Vital Signs Period Temp Pulse Resp BP Sys/Lisa Pulse Ox Last 24 Hr 98.3 F-104.6 F 107-119 18-20 108-124/45-90 92-95 alert ambulating no diarrhea no dysuria no rash no thrush, poor dentition cor-rrr lulngs decreased bs at bases abd soft,nt +GT ext no edema no rash no phlebitis CBC, BMP 04/11/18 10:25 04/11/18 09:40 cxray improved Laboratory Tests 03/28/18 03/29/18 19:46 05:30 Absolute CD4 [place] 311 L HIV-1 RNA Quant <20 Microbiology 04/09/18 12:30 Pleural Fluid Gram Stain - Final 04/09/18 12:30 Pleural Fluid Body Fluid Culture - Preliminary NO AEROBIC GROWTH, 24 HRS 04/09/18 12:30 Pleural Fluid Anaerobic Culture - Final NO ANAEROBES WERE ISOLATED 04/09/18 22:30 Blood - Peripheral Venous Blood Culture - Preliminary NO GROWTH OBTAINED AFTER 24 HOURS, INCUBATION TO CONTINUE FOR 4 DAYS. 04/09/18 22:30 Blood - Peripheral Venous Blood Culture - Preliminary NO GROWTH OBTAINED AFTER 24 HOURS, INCUBATION TO CONTINUE FOR 4 DAYS. 04/09/18 12:30 Pleural Fluid RAE Preparation - Preliminary 04/09/18 12:30 Pleural Fluid Fungal Culture - Preliminary 04/03/18 05:40 Blood - Peripheral Venous Blood Culture - Final NO GROWTH AFTER 5 DAYS INCUBATION 04/03/18 05:30 Blood - Peripheral Venous Blood Culture - Final NO GROWTH AFTER 5 DAYS INCUBATION 03/30/18 20:30 Blood - Peripheral Venous Blood Culture - Final NO GROWTH AFTER 5 DAYS INCUBATION 03/30/18 18:00 Blood - Peripheral Venous Blood Culture - Final NO GROWTH AFTER 5 DAYS INCUBATION 03/28/18 12:35 Blood - Peripheral Venous Blood Culture - Final Klebsiella Pneumoniae 03/28/18 12:35 Blood - Peripheral Venous Blood Culture - Final Klebsiella Pneumoniae 03/28/18 12:50 Urine - Urine Clean Catch Urine Culture - Final a/p recurrent fevers- cxray improved, reculture ct scan abd/pelvis vanco/zosyn klebsiella bacteremia/pneumonia day #14 cefazolin- d/c HIV- stable-continue meds-cd4 300 vl undectable- unlikely OI history of laryngeal cancer d/w hospitalist
[2018-04-11] MEDS ORDERED: VANCOMYCIN 750 MG in DEXTROSE 5%-WATER - 150 ML IVPB ONE (12:31)
[2018-04-11] MEDS ORDERED: PIPERACILLIN/TAZOBACTAM 3.375 GM VIAL IVPB ONE ×2 (13:04→16:56)
[2018-04-11] MEDS: PIPERACILLIN/TAZOB 3.375 GM 3.375 GM in DEXTROSE 5%-WATER - 50 ML IVPB SCH ×2 (13:10→17:08)
[2018-04-11] MEDS ORDERED: VANCOMYCIN 750 MG in DEXTROSE 5%-WATER - 250 ML IVPB ONE (13:15)
[2018-04-11 18:53] LABS: URINE APPEARANCE CLEAR; URINE BILIRUBIN NEGATIVE (<2.0 mg/dL); URINE COLOR LTYELLOW; URINE GLUCOSE (UA) 3+ (NEGATIVE); URINE KETONE NEGATIVE (NEGATIVE); URINE LEUK ESTERASE NEGATIVE (NEGATIVE); URINE NITRITE NEGATIVE (NEGATIVE); URINE PROTEIN NEGATIVE (NEGATIVE); URINE UROBILINOGEN NEGATIVE mg/dL (0.2-1.0)
[2018-04-11] MEDS ORDERED: IBUPROFEN 600 MG TABLET (FP) PO ONE (19:54)
[2018-04-11] MEDS ORDERED: ONDANSETRON 4 MG/2 ML VIAL IVPUSH PRN (19:55)
[2018-04-12] MEDS: methylPREDNISolone NA SUCC 40 MG/1 ML VIAL IVPUSH SCH ×3 (00:28→22:04)
[2018-04-12] MEDS: ZOLPIDEM TARTRATE 5 MG TABLET PO PRN ×2 (00:28→22:21)
[2018-04-12] MEDS: MIRTAZAPINE 15 MG TABLET (FP) PEG SCH ×2 (00:28→22:04)
[2018-04-12] MEDS: HEPARIN NA (PORCINE) 5,000 UNITS/ML 1ML VIAL SQ SCH ×4 (00:28→22:02)
[2018-04-12] MEDS: RALTEGRAVIR POTASSIUM 400 MG TAB NR SCH ×3 (00:29→22:03)
[2018-04-12] MEDS: GABAPENTIN 250 MG/5 ML ORAL SOLUTION, 470 ML BOTTLE PEG SCH ×3 (00:30→22:03)
[2018-04-12] MEDS: BUDESONIDE/FORMETEROL FUMARATE 160/4.5 mcg INHALER IH SCH ×3 (00:30→23:09)
[2018-04-12] MEDS: FAMOTIDINE 20 MG/50 ML IVPB 20 MG/50 ML MG IVPB SCH ×3 (00:30→22:04)
[2018-04-12] MEDS ORDERED: SODIUM CHLORIDE 500 ML IV STA (01:17)
[2018-04-12] MEDS ORDERED: PIPERACILLIN/TAZOBACTAM 3.375 GM VIAL IVPB ONE ×3 (01:39→17:10)
[2018-04-12] MEDS ORDERED: DEXTROSE 5%-WATER - 50 ML IVPB ONE ×3 (01:39→17:10)
[2018-04-12] MEDS: PIPERACILLIN/TAZOB 3.375 GM 3.375 GM in DEXTROSE 5%-WATER - 50 ML IVPB SCH ×3 (02:10→17:18)
[2018-04-12] MEDS: ALBUTEROL SO4 0.083% IH SOL 2.5 MG/3 ML VIAL.NEB. NEB SCH ×6 (02:28→22:39)
[2018-04-12] MEDS: ACETYLCYSTEINE 20% 200MG/ML 4 ML VIAL *FOR ORAL / INH USE ONLY NEB SCH ×6 (02:28→22:39)
[2018-04-12 07:04] LABS: BASO % 0.1 % (0-2.0); HEMATOCRIT 32.1 % (32.4-45.2); HEMOGLOBIN 10.4 GM/dL (10.7-15.3); LYMPH % 2.3 % (8-40); MCH 32.6 pg (25.7-33.7); MCHC 32.5 g/dl (32.0-36.0); MEAN CELL VOLUME 100.5 fl (80-96); MONO % 4.1 % (3.8-10.2); NEUT % 93.5 % (42.8-82.8); PLATELET COUNT 364 K/MM3 (134-434); RBC 3.19 M/mm3 (3.60-5.2); RDW 15.1 % (11.6-15.6); WHITE BLOOD COUNT 19.6 K/mm3 (4.0-10.0)
[2018-04-12 07:15] LABS: ALBUMIN 2.4 g/dl (3.4-5.0); ANION GAP 12 MMOL/L (8-16); BLOOD UREA NITROGEN 39 mg/dL (7-18); CALCIUM 8.6 mg/dL (8.5-10.1); CHLORIDE 99 mmol/L (98-107); CO2 27 mmol/L (21-32); GLUCOSE,RANDOM 176 mg/dL (74-106); MAGNESIUM 2.1 mg/dL (1.8-2.4); POTASSIUM 3.4 mmol/L (3.5-5.1); SODIUM 138 mmol/L (136-145)
[2018-04-12 07:21] LABS: ALK PHOS 72 U/L (45-117); BILIRUBIN,TOTAL 0.4 mg/dL (0.2-1.0); CREATININE 0.7 mg/dL (0.55-1.02); SGOT/AST 23 U/L (15-37); SGPT/ALT 21 U/L (12-78); TOT PROT 6.2 g/dl (6.4-8.2)
[2018-04-12] MEDS: SODIUM CHLORIDE 1,000 ML IV SCH (08:00)
[2018-04-12] MEDS: AMINO ACIDS/PROTEIN HYDROLYS 30 ML LIQUID.PKT GT SCH ×2 (08:05→17:18)
--- NOTE | 2018-04-12 08:09 | PN ---
Physical Exam: SUBJECTIVE: Patient seen and examined at the bedside. Febrile with general malaise overnight, feeling better today. OBJECTIVE: Febrile 104.6 overnight, started on vanco and zosyn on 04/11 by ID abdomen/ct consistent: with bibasal consolidatin/pneumonia with small pericardial effusion tiny non obstructing renal stones, significant hepatomegaly. Vital Signs Period Temp Pulse Resp BP Sys/Lisa Pulse Ox Last 24 Hr 98.6 F-104.6 F 105-130 20-22 86-138/47-78 92-95 GENERAL: The patient is awake, alert, and fully oriented, in no acute distress. HEAD: Normal with no signs of trauma. EYES: PERRL, extraocular movements intact, sclera anicteric, conjunctiva clear. No ptosis. ENT: Ears normal, nares patent, oropharynx clear without exudates, moist mucous membranes. NECK: Trachea midline, full range of motion, supple. LUNGS: scattered rhonchi, stable oxygen sats, respiratory treatments scheduled HEART: Regular rate and rhythm, episodes of tachycardia. ABDOMEN: g tube in place, intact EXTREMITIES: no edema. NEUROLOGICAL: Normal speech, ambulates PSYCH: Normal mood, normal affect. Laboratory Results - last 24 hr 04/11/18 04/11/18 04/11/18 09:40 09:40 10:25 WBC 15.3 H RBC 3.38 L Hgb 10.9 Hct 33.9 MCV 100.1 H MCH 32.1 MCHC 32.1 RDW 14.7 Plt Count 456 H D MPV 8.5 Absolute Neuts (auto) 13.9 H Neutrophils % 90.5 H Neutrophils % (Manual) 84.8 H Band Neutrophils % 7.1 Lymphocytes % 5.8 L Lymphocytes % (Manual) 6.1 L Monocytes % 3.5 L Monocytes % (Manual) 2 L Eosinophils % 0.0 Eosinophils % (Manual) 0.0 Basophils % 0.2 Basophils % (Manual) 0.0 Myelocytes % (Man) 0 Promyelocytes % (Man) 0 Blast Cells % (Manual) 0 Nucleated RBC % 0 Metamyelocytes 0 Hypochromia 0 Platelet Estimate Normal Polychromasia 0 Poikilocytosis 1+ Anisocytosis 1+ Macrocytosis 1+ Stomatocytes 1+ Sodium 138 Potassium 4.3 Chloride 101 Carbon Dioxide 26 Anion Gap 11 BUN 27 H Creatinine 0.5 L Creat Clearance w eGFR > 60 Random Glucose 125 H Lactic Acid Calcium 9.0 Magnesium 2.3 Cancelled Total Bilirubin 0.4 AST 19 ALT 19 Alkaline Phosphatase 69 D Total Protein 6.7 Albumin 2.7 L Urine Color Urine Appearance Urine pH Ur Specific [place] Urine Protein Urine Glucose (UA) Urine Ketones Urine Blood Urine Nitrite Urine Bilirubin Urine Urobilinogen Ur Leukocyte Esterase 04/11/18 04/11/18 04/12/18 11:06 16:22 05:30 WBC 19.6 H RBC 3.19 L Hgb 10.4 L Hct 32.1 L MCV 100.5 H MCH 32.6 MCHC 32.5 RDW 15.1 Plt Count 364 D MPV 9.0 Absolute Neuts (auto) 18.3 H Neutrophils % 93.5 H Neutrophils % (Manual) Band Neutrophils % Lymphocytes % 2.3 L D Lymphocytes % (Manual) Monocytes % 4.1 Monocytes % (Manual) Eosinophils % 0.0 Eosinophils % (Manual) Basophils % 0.1 Basophils % (Manual) Myelocytes % (Man) Promyelocytes % (Man) Blast Cells % (Manual) Nucleated RBC % 0 Metamyelocytes Hypochromia Platelet Estimate Polychromasia Poikilocytosis Anisocytosis Macrocytosis Stomatocytes Sodium Potassium Chloride Carbon Dioxide Anion Gap BUN Creatinine Creat Clearance w eGFR Random Glucose Lactic Acid 1.9 Calcium Magnesium Total Bilirubin AST ALT Alkaline Phosphatase Total Protein Albumin Urine Color Ltyellow Urine Appearance Clear Urine pH 5.0 Ur Specific [place] 1.014 Urine Protein Negative Urine Glucose (UA) 3+ H Urine Ketones Negative Urine Blood Negative Urine Nitrite Negative Urine Bilirubin Negative Urine Urobilinogen Negative Ur Leukocyte Esterase Negative 04/12/18 05:30 WBC RBC Hgb Hct MCV MCH MCHC RDW Plt Count MPV Absolute Neuts (auto) Neutrophils % Neutrophils % (Manual) Band Neutrophils % Lymphocytes % Lymphocytes % (Manual) Monocytes % Monocytes % (Manual) Eosinophils % Eosinophils % (Manual) Basophils % Basophils % (Manual) Myelocytes % (Man) Promyelocytes % (Man) Blast Cells % (Manual) Nucleated RBC % Metamyelocytes Hypochromia Platelet Estimate Polychromasia Poikilocytosis Anisocytosis Macrocytosis Stomatocytes Sodium 138 Potassium 3.4 L Chloride 99 Carbon Dioxide 27 Anion Gap 12 BUN 39 H Creatinine 0.7 Creat Clearance w eGFR > 60 Random Glucose 176 H Lactic Acid Calcium 8.6 Magnesium 2.1 Total Bilirubin 0.4 AST 23 ALT 21 Alkaline Phosphatase 72 Total Protein 6.2 L Albumin 2.4 L Urine Color Urine Appearance Urine pH Ur Specific [place] Urine Protein Urine Glucose (UA) Urine Ketones Urine Blood Urine Nitrite Urine Bilirubin Urine Urobilinogen Ur Leukocyte Esterase Active Medications Generic Name Dose Route Start Last Admin Trade Name Freq PRN Reason Stop Dose Admin Acetaminophen 650 mg 04/03/18 15:41 04/11/18 17:08 Tylenol - PO 650 mg Q6H PRN Administration FEVER Acetylcysteine 200 mg 04/03/18 10:30 04/12/18 06:25 Mucomyst 20 Oral / Inh Use Only* NEB 200 mg Q4HWA RAZ Administration Albuterol Sulfate 1 amp 04/03/18 10:30 04/12/18 06:25 Ventolin 0.083% Nebulizer Soln - NEB 1 amp Q4HWA RAZ Administration Amino Acids 30 ml 04/07/18 20:14 04/11/18 17:07 Prosource No Carb Liquid Pkt GT 30 ml BID@0800,1730 RAZ Administration Budesonide/Formoterol Fumarate 2 puff 04/03/18 22:00 04/12/18 00:30 Symbicort 160/4.5mcg - IH 2 puff BID RAZ Administration Clonazepam 0.25 mg 04/09/18 07:18 04/11/18 17:08 Klonopin - GT 0.25 mg Q6HPO PRN Administration ANXIETY Emtricitabine/Tenofovir 1 tab 04/04/18 10:00 04/11/18 09:36 Truvada PO 1 tab DAILY RAZ Administration Etravirine 100 mg 04/03/18 18:30 04/11/18 18:33 Intelence - PO 100 mg BIDPC RAZ Administration Fluticasone Propionate 1 spray 04/04/18 10:00 04/11/18 09:37 Flonase - NS 1 spray DAILY RAZ Administration Gabapentin 250 mg 04/03/18 22:00 04/12/18 00:30 Neurontin Oral Liquid - PEG 250 mg BID RAZ Administration Heparin Sodium (Porcine) 5,000 unit 04/03/18 22:00 04/12/18 07:17 Heparin - SQ 5,000 unit TID RAZ Administration Famotidine/Sodium Chloride 20 mg in 50 mls @ 100 mls/hr 04/03/18 22:00 00:30 Pepcid 20 Mg Premixed Ivpb - IVPB 100 mls/hr BID RAZ Administration Piperacillin Sod/Tazobactam 50 mls @ 100 mls/hr 04/11/18 12:45 04/12/18 02:10 Sod 3.375 gm/ Dextrose IVPB 100 mls/hr Q8H-IV RAZ Administration Protocol Sodium Chloride 1,000 mls @ 75 mls/hr 04/12/18 07:15 Normal Saline - IV ASDIR RAZ Lactobacillus Acidophilus 1 tab 04/03/18 10:45 04/11/18 09:16 Bacid - PO 1 tab DAILY RAZ Administration Melatonin 5 mg 04/03/18 15:41 04/08/18 22:03 Melatonin PO 5 mg HS PRN Administration INSOMNIA Methylprednisolone Sodium Succinate 20 mg 04/11/18 22:00 04/12/18 00:28 Solu-Medrol - IVPUSH 20 mg BID RAZ Administration Mirtazapine 15 mg 04/03/18 22:00 04/12/18 00:28 Remeron - PEG 15 mg HS RAZ Administration Ondansetron HCl 4 mg 04/11/18 19:55 Zofran Injection IVPUSH Q6H PRN NAUSEA AND/OR VOMITING Potassium Chloride 40 meq 04/12/18 08:15 Potassium Chloride Oral Liquid GT 04/12/18 08:16 ONCE ONE Raltegravir 400 mg 04/03/18 22:00 04/12/18 00:29 Isentress - NR 400 mg BID RAZ Administration Sertraline HCl 50 mg 04/04/18 10:00 04/11/18 09:17 Zoloft - PO 50 mg DAILY RAZ Administration Tramadol HCl 50 mg 04/03/18 12:02 04/11/18 09:45 Ultram - PO 50 mg Q6H PRN Administration PAIN LEVEL 4 - 6 Zolpidem Tartrate 5 mg 04/04/18 12:17 04/12/18 00:28 Ambien - PO 5 mg HS PRN Administration INSOMNIA ASSESSMENT/PLAN: Patient is a 47 year old female with a significant past medical history of +HIV , laryngeal cancer, chronic trach, PEG tube, hepatitis B and failure to thrive. Patient presented to the ED on 03/28/2018 with symptoms of nausea, vomiting, diarrhea, cough and fever. Hospitalization complicated for acute shortness of breath and patient was transferred to the ICU on 03/30 and placed on a mechanical ventilator. imaging: chest xray 04/05: bilateral pleural effusions chest xray 04/06: chest xray with slight decrease in pleural effusions chest xray 04/09: s/p thora with slight decrease in pleural fluid chest xray 04/11: improvement, better aeration CTAP 04/11/18: Abdomen/pelvis CT w/o contrast with bibasal consolidation/ pneumonia with small pericardial effusion tiny non obstructing renal stones, and significant hepatomegaly. ID: Gram negative sepsis in the setting of HIV and laryngeal cancer: Blood cultures 03/28 +kleb and treated with zosyn and cefazolin. repeat blood cultures negative. Patient developed a fever with associated chills on 04/11 with a Tmax 104.6f. Started on vancomycin and zosyn per ID. blood cultures have been repeated and are pending. lactic acid within normal limits. Febrile again overnight, given motrin. HIV: Continue home antiviral triple therapy. Pulm: Hospital acquired pneumonia: as noted on CT. On Zosyn and Vanco. Pulmonary following. Chronic trach/shortness of breath/Asthma/COPD/pneumonia: On scheduled duonebs with mucomyst and chest percussion. Pleural effusions: Bilateral pleural effusions seen on CT scan. right > left, s/p thoracentesis on 04/09/18 with 60cc of sero sang drainage, cultures pending. Card: chest pain, resolved: trops negative, small pericardial effusion. cardiology following. tachycardia: secondary to fevers. Hypotension: monitor in the setting of pneumonia/sepsis, started on ivf Onc: Laryngeal carcinoma, has chronic trach and feeds via peg tube. Needs MBS to evaluate swallowing function. Seen by speech and swallow. Pt made aware that MBS could not be done until patient has her trach changed and provox can be used. On GT feedings of high calorie boost which is her home nutrition. new GT replaced 04.06.18 by GI, but port too small, replaced by IR on . Psyche: Anxiety history. klonopin increased to q6 prn. Endocrine: hmg a1c 6.2, boderline, monitor for now. prophy: Heparin tid swallow evaluation, will need MBS. aspiration precautions. physical therapy once infection improves fen GT feeds, given boost supplements via gravity and prosource bid (apx 3k per day ) monitor electrolytes On continuous pulse monitoring. Visit type - Emergency Visit Emergency Visit: Yes ED Registration Date: 03/28/18 Care time: The patient presented to the Emergency Department on the above date and was hospitalized for further evaluation of their emergent condition. - New Patient This patient is new to me today: No - Critical Care Critical Care patient: No - Discharge Referral Referred to [facility] Med [facility] No
[2018-04-12] MEDS ORDERED: POTASSIUM CHLORIDE ORAL LIQUID 20 MEQ/15 ML GT ONE (08:15)
[2018-04-12] MEDS: ETRAVIRINE 100 MG TABLET PO SCH ×2 (09:00→18:14)
--- NOTE | 2018-04-12 09:07 | PN ---
Progress Note, Physician - Current Medication List Current Medications: Active Medications Acetaminophen (Tylenol -) 650 mg PO Q6H PRN PRN Reason: FEVER Last Admin: 04/11/18 17:08 Dose: 650 mg Acetylcysteine (Mucomyst 20 Oral / Inh Use Only*) 200 mg NEB Q4HWA [facility] Last Admin: 04/12/18 06:25 Dose: 200 mg Albuterol Sulfate (Ventolin 0.083% Nebulizer Soln -) 1 amp NEB Q4HWA [facility] Last Admin: 04/12/18 06:25 Dose: 1 amp Amino Acids (Prosource No Carb Liquid Pkt) 30 ml GT BID@0800,1730 [facility] Last Admin: 04/11/18 17:07 Dose: 30 ml Budesonide/Formoterol Fumarate (Symbicort 160/4.5mcg -) 2 puff IH BID [facility] Last Admin: 04/12/18 00:30 Dose: 2 puff Clonazepam (Klonopin -) 0.25 mg GT Q6HPO PRN PRN Reason: ANXIETY Last Admin: 04/11/18 17:08 Dose: 0.25 mg Emtricitabine/Tenofovir (Truvada) 1 tab PO DAILY [facility] Last Admin: 04/11/18 09:36 Dose: 1 tab Etravirine (Intelence -) 100 mg PO BIDPC [facility] Last Admin: 04/11/18 18:33 Dose: 100 mg Fluticasone Propionate (Flonase -) 1 spray NS DAILY [facility] Last Admin: 04/11/18 09:37 Dose: 1 spray Gabapentin (Neurontin Oral Liquid -) 250 mg PEG BID [facility] Last Admin: 04/12/18 00:30 Dose: 250 mg Heparin Sodium (Porcine) (Heparin -) 5,000 unit SQ TID [facility] Last Admin: 04/12/18 07:17 Dose: 5,000 unit Famotidine/Sodium Chloride (Pepcid 20 Mg Premixed Ivpb -) 20 mg in 50 mls @ 100 mls/hr IVPB BID [facility] Last Admin: 04/12/18 00:30 Dose: 100 mls/hr Piperacillin Sod/Tazobactam (Sod 3.375 gm/ Dextrose) 50 mls @ 100 mls/hr IVPB Q8H-IV [facility]; Protocol Last Admin: 04/12/18 02:10 Dose: 100 mls/hr Sodium Chloride (Normal Saline -) 1,000 mls @ 75 mls/hr IV ASDIR [facility] Lactobacillus Acidophilus (Bacid -) 1 tab PO DAILY [facility] Last Admin: 04/11/18 09:16 Dose: 1 tab Melatonin (Melatonin) 5 mg PO HS PRN PRN Reason: INSOMNIA Last Admin: 04/08/18 22:03 Dose: 5 mg Methylprednisolone Sodium Succinate (Solu-Medrol -) 20 mg IVPUSH BID [facility] Last Admin: 04/12/18 00:28 Dose: 20 mg Mirtazapine (Remeron -) 15 mg PEG HS [facility] Last Admin: 04/12/18 00:28 Dose: 15 mg Ondansetron HCl (Zofran Injection) 4 mg IVPUSH Q6H PRN PRN Reason: NAUSEA AND/OR VOMITING Raltegravir (Isentress -) 400 mg NR BID [facility] Last Admin: 04/12/18 00:29 Dose: 400 mg Sertraline HCl (Zoloft -) 50 mg PO DAILY [facility] Last Admin: 04/11/18 09:17 Dose: 50 mg Tramadol HCl (Ultram -) 50 mg PO Q6H PRN PRN Reason: PAIN LEVEL 4 - 6 Last Admin: 04/11/18 09:45 Dose: 50 mg Zolpidem Tartrate (Ambien -) 5 mg PO HS PRN PRN Reason: INSOMNIA Last Admin: 04/12/18 00:28 Dose: 5 mg - Objective Vital Signs: Vital Signs Temperature 98.9 F 04/12/18 05:14 Pulse Rate 105 H 04/12/18 05:14 Respiratory Rate 20 04/12/18 05:14 Blood Pressure 98/56 04/12/18 05:14 O2 Sat by Pulse Oximetry (%) 95 04/11/18 21:00 Eyes: Yes: WNL, Conjunctiva Clear, EOM Intact HENT: Yes: WNL, Atraumatic, Normocephalic Neck: Yes: WNL, Supple, Trachea Midline Cardiovascular: Yes: WNL, Regular Rate and Rhythm Respiratory: Yes: Diminished Gastrointestinal: Yes: WNL, Normal Bowel Sounds Genitourinary: Yes: WNL Musculoskeletal: Yes: WNL Extremities: Yes: WNL Edema: No Integumentary: Yes: WNL Neurological: Yes: WNL, Alert, Oriented ...Motor Strength: WNL Psychiatric: Yes: WNL Labs: CBC, BMP 04/12/18 05:30 04/12/18 05:30 INR, PTT INR 1.02 (0.83-1.09) 04/09/18 09:27 Assessment/Plan IMP: Pneumonia ARDS resolving Klebsiella Bacteremia Sepsis HIV/AIDS h/o Laryngeal Ca s/p trach/PEG Small pericardial effusion REC: - abx as per ID - Pulmonary following for management of bronchodilators, FiO2 recc and steroid taper -Serial echo f/u for pericardial effusion - Repeat ECG- pt c/o of "accelerated heart rate" which may be due to fever/ infection -DVT prophylaxis
[2018-04-12] MEDS ORDERED: PT OWN MED DRAWER 7, Y5N ONE (09:08)
[2018-04-12] MEDS: SERTRALINE HCL 50 MG TABLET (FP) PO SCH (10:09)
[2018-04-12] MEDS: LACTOBACILLUS ACIDOPHILUS 1 TABLET PO SCH (10:09)
[2018-04-12] MEDS: traMADol HCL 50 MG TABLET PO PRN ×2 (10:12→22:14)
[2018-04-12] MEDS: EMTRICITABINE 200MG/TENOFOVIR 300MG PO SCH (10:21)
--- NOTE | 2018-04-12 10:33 | EKG ---
Test Reason : Blood Pressure : / mmHG Vent. Rate : 124 BPM Atrial Rate : 124 BPM P-R Int : 116 ms QRS Dur : 078 ms QT Int : 312 ms P-R-T Axes : 080 -36 058 degrees QTc Int : 448 ms SINUS TACHYCARDIA LEFT AXIS DEVIATION ABNORMAL ECG WHEN COMPARED WITH ECG OF 09-APR-2018 14:23, NO SIGNIFICANT CHANGE WAS FOUND Confirmed by JONO MCKINLEY MD ([id number]) on 04/12/2018 10:33:05 AM Referred By: Wai BAUTISTA Confirmed By:JONO MCKINLEY MD
[2018-04-12 11:06] LABS: ANISOCYTOSIS 1+; MACROCYTOSIS 1+; OVALOCYTE 1+
--- NOTE | 2018-04-12 11:15 | EKG ---
Test Reason : Blood Pressure : / mmHG Vent. Rate : 111 BPM Atrial Rate : 111 BPM P-R Int : 128 ms QRS Dur : 078 ms QT Int : 334 ms P-R-T Axes : 088 039 066 degrees QTc Int : 454 ms SINUS TACHYCARDIA OTHERWISE NORMAL ECG WHEN COMPARED WITH ECG OF 08-APR-2018 02:10, NO SIGNIFICANT CHANGE WAS FOUND Confirmed by JONO MCKINLEY MD ([id number]) on 04/12/2018 11:15:07 AM Referred By: NAKITA NOYOLA Confirmed By:JONO MCKINLEY MD
--- NOTE | 2018-04-12 11:21 | PN ---
Progress Note, Physician History of Present Illness: pulmonary alert,low grade temp,+ increased tracheal secretions - Current Medication List Current Medications: Active Medications Acetaminophen (Tylenol -) 650 mg PO Q6H PRN PRN Reason: FEVER Last Admin: 04/11/18 17:08 Dose: 650 mg Acetylcysteine (Mucomyst 20 Oral / Inh Use Only*) 200 mg NEB Q4HWA [facility] Last Admin: 04/12/18 09:30 Dose: 200 mg Albuterol Sulfate (Ventolin 0.083% Nebulizer Soln -) 1 amp NEB Q4HWA [facility] Last Admin: 04/12/18 09:30 Dose: 1 amp Amino Acids (Prosource No Carb Liquid Pkt) 30 ml GT BID@0800,1730 [facility] Last Admin: 04/12/18 08:05 Dose: 30 ml Budesonide/Formoterol Fumarate (Symbicort 160/4.5mcg -) 2 puff IH BID [facility] Last Admin: 04/12/18 00:30 Dose: 2 puff Clonazepam (Klonopin -) 0.25 mg GT Q6HPO PRN PRN Reason: ANXIETY Last Admin: 04/11/18 17:08 Dose: 0.25 mg Emtricitabine/Tenofovir (Truvada) 1 tab PO DAILY [facility] Last Admin: 04/12/18 10:21 Dose: 1 tab Etravirine (Intelence -) 100 mg PO BIDPC [facility] Last Admin: 04/12/18 09:00 Dose: 100 mg Fluticasone Propionate (Flonase -) 1 spray NS DAILY [facility] Last Admin: 04/11/18 09:37 Dose: 1 spray Gabapentin (Neurontin Oral Liquid -) 250 mg PEG BID [facility] Last Admin: 04/12/18 10:20 Dose: 250 mg Heparin Sodium (Porcine) (Heparin -) 5,000 unit SQ TID [facility] Last Admin: 04/12/18 07:17 Dose: 5,000 unit Famotidine/Sodium Chloride (Pepcid 20 Mg Premixed Ivpb -) 20 mg in 50 mls @ 100 mls/hr IVPB BID [facility] Last Admin: 04/12/18 10:09 Dose: 100 mls/hr Piperacillin Sod/Tazobactam (Sod 3.375 gm/ Dextrose) 50 mls @ 100 mls/hr IVPB Q8H-IV [facility]; Protocol Last Admin: 04/12/18 10:10 Dose: 100 mls/hr Sodium Chloride (Normal Saline -) 1,000 mls @ 75 mls/hr IV ASDIR [facility] Lactobacillus Acidophilus (Bacid -) 1 tab PO DAILY [facility] Last Admin: 04/12/18 10:09 Dose: 1 tab Melatonin (Melatonin) 5 mg PO HS PRN PRN Reason: INSOMNIA Last Admin: 04/08/18 22:03 Dose: 5 mg Methylprednisolone Sodium Succinate (Solu-Medrol -) 20 mg IVPUSH BID [facility] Last Admin: 04/12/18 10:08 Dose: 20 mg Mirtazapine (Remeron -) 15 mg PEG HS [facility] Last Admin: 04/12/18 00:28 Dose: 15 mg Ondansetron HCl (Zofran Injection) 4 mg IVPUSH Q6H PRN PRN Reason: NAUSEA AND/OR VOMITING Raltegravir (Isentress -) 400 mg NR BID [facility] Last Admin: 04/12/18 10:18 Dose: 400 mg Sertraline HCl (Zoloft -) 50 mg PO DAILY [facility] Last Admin: 04/12/18 10:09 Dose: 50 mg Tramadol HCl (Ultram -) 50 mg PO Q6H PRN PRN Reason: PAIN LEVEL 4 - 6 Last Admin: 04/12/18 10:12 Dose: 50 mg Zolpidem Tartrate (Ambien -) 5 mg PO HS PRN PRN Reason: INSOMNIA Last Admin: 04/12/18 00:28 Dose: 5 mg - Objective Vital Signs: Vital Signs Temperature 98.9 F 04/12/18 05:14 Pulse Rate 105 H 04/12/18 05:14 Respiratory Rate 20 04/12/18 05:14 Blood Pressure 98/56 04/12/18 05:14 O2 Sat by Pulse Oximetry (%) 95 04/11/18 21:00 Constitutional: Yes: Calm, Thin Eyes: Yes: WNL HENT: Yes: WNL Neck: Yes: Supple (trach) Cardiovascular: Yes: Regular Rate and Rhythm, S1, S2 Respiratory: Yes: Rhonchi (shania rhonchi) Gastrointestinal: Yes: Normal Bowel Sounds, Soft Extremities: Yes: WNL Edema: No Labs: CBC, BMP 04/12/18 05:30 04/12/18 05:30 INR, PTT INR 1.02 (0.83-1.09) 04/09/18 09:27 - ....Imaging Chest X-ray: Image Reviewed Problem List - Problems (1) Acute on chronic respiratory failure with hypoxia and hypercapnia Code(s): J96.21 - ACUTE AND CHRONIC RESPIRATORY FAILURE WITH HYPOXIA; J96.22 - ACUTE AND CHRONIC RESPIRATORY FAILURE WITH HYPERCAPNIA (2) Laryngeal carcinoma Code(s): C32.9 - MALIGNANT NEOPLASM OF LARYNX, UNSPECIFIED (3) Pneumonia Code(s): J18.9 - PNEUMONIA, UNSPECIFIED ORGANISM Qualifiers: Pneumonia type: due to unspecified organism Laterality: bilateral Lung location: unspecified part of lung Qualified Code(s): J18.9 - Pneumonia, unspecified organism (4) AIDS Code(s): B20 - HUMAN IMMUNODEFICIENCY VIRUS [HIV] DISEASE (5) Difficulty breathing Code(s): R06.89 - OTHER ABNORMALITIES OF BREATHING (6) HIV (human immunodeficiency virus infection) Code(s): Z21 - ASYMPTOMATIC HUMAN IMMUNODEFICIENCY VIRUS INFECTION STATUS (7) Head and neck cancer Code(s): C76.0 - MALIGNANT NEOPLASM OF HEAD, FACE AND NECK Assessment/Plan A/P Acute on Chronic Hypoxic Respiratory Failure improving Pneumonia ARDS resolving Klebsiella Bacteremia Sepsis HIV/AIDS h/o Laryngeal Ca s/p trach/PEG Pleural effusion exudatelikely uncomplicated parapneumonic effusion - antibiotics as per ID - continue bacid - inhaled bronchodilators with mucomyst - pain control - chest PT/bed percussion - taper Fio2 to keep SpO2 >90% - continue ART - DVT prophylaxis - steroids - chest ct DR MAYER
[2018-04-12] MEDS: FLUTICASONE PROP 0.05% 16 GM NASAL SPRAY NS SCH (11:42)
--- NOTE | 2018-04-12 11:55 | ECHO ---
Name: LILIYA GLEZ Exam:Adult Echocardiogram Study Date: 04/12/2018 10:58 AM Age: 47 yrs Height: 62 in Weight: 93 lb BSA: 1.4 m2 Procedure A limited two-dimensional transthoracic echocardiogram was performed (2D). Pericardium/Pleura Small pericardial effusion (<1cm). There are no echocardiographic indications of cardiac tamponade. Interpretation Summary Small pericardial effusion (<1cm) There are no echocardiographic indications of cardiac tamponade. When compared to study dated 04/08/18, amount of pericardial effusion has not changed Alfonzo Cui MD 04/12/2018 11:55 AM
[2018-04-12] MEDS: clonazePAM 0.5 MG TABLET GT PRN ×2 (12:20→18:55)
[2018-04-12] MEDS: IBUPROFEN 600 MG TABLET (FP) PO PRN ×2 (12:39→22:25)
--- NOTE | 2018-04-12 15:41 | PN ---
Progress Note, Physician History of Present Illness: Awake, alert High grade fever noted Breathing non-labored on trach collar Repeat BC prelim (-) CT chest extensive pneumonia - Current Medication List Current Medications: Active Medications Acetaminophen (Tylenol -) 650 mg PO Q6H PRN PRN Reason: FEVER Last Admin: 04/11/18 17:08 Dose: 650 mg Acetylcysteine (Mucomyst 20 Oral / Inh Use Only*) 200 mg NEB Q4HWA [facility] Last Admin: 04/12/18 13:40 Dose: 200 mg Albuterol Sulfate (Ventolin 0.083% Nebulizer Soln -) 1 amp NEB Q4HWA [facility] Last Admin: 04/12/18 13:40 Dose: 1 amp Amino Acids (Prosource No Carb Liquid Pkt) 30 ml GT BID@0800,1730 [facility] Last Admin: 04/12/18 08:05 Dose: 30 ml Budesonide/Formoterol Fumarate (Symbicort 160/4.5mcg -) 2 puff IH BID [facility] Last Admin: 04/12/18 11:43 Dose: 2 puff Clonazepam (Klonopin -) 0.25 mg GT Q6HPO PRN PRN Reason: ANXIETY Last Admin: 04/12/18 12:20 Dose: 0.25 mg Emtricitabine/Tenofovir (Truvada) 1 tab PO DAILY [facility] Last Admin: 04/12/18 10:21 Dose: 1 tab Etravirine (Intelence -) 100 mg PO BIDPC [facility] Last Admin: 04/12/18 09:00 Dose: 100 mg Fluticasone Propionate (Flonase -) 1 spray NS DAILY [facility] Last Admin: 04/12/18 11:42 Dose: 1 spray Gabapentin (Neurontin Oral Liquid -) 250 mg PEG BID [facility] Last Admin: 04/12/18 10:20 Dose: 250 mg Heparin Sodium (Porcine) (Heparin -) 5,000 unit SQ TID [facility] Last Admin: 04/12/18 14:16 Dose: 5,000 unit Famotidine/Sodium Chloride (Pepcid 20 Mg Premixed Ivpb -) 20 mg in 50 mls @ 100 mls/hr IVPB BID [facility] Last Admin: 04/12/18 10:09 Dose: 100 mls/hr Piperacillin Sod/Tazobactam (Sod 3.375 gm/ Dextrose) 50 mls @ 100 mls/hr IVPB Q8H-IV [facility]; Protocol Last Admin: 04/12/18 10:10 Dose: 100 mls/hr Sodium Chloride (Normal Saline -) 1,000 mls @ 75 mls/hr IV ASDIR [facility] Last Admin: 04/12/18 08:00 Dose: 75 mls/hr Ibuprofen (Motrin -) 600 mg PO Q8H PRN PRN Reason: FEVER Last Admin: 04/12/18 12:39 Dose: 600 mg Lactobacillus Acidophilus (Bacid -) 1 tab PO DAILY [facility] Last Admin: 04/12/18 10:09 Dose: 1 tab Melatonin (Melatonin) 5 mg PO HS PRN PRN Reason: INSOMNIA Last Admin: 04/08/18 22:03 Dose: 5 mg Methylprednisolone Sodium Succinate (Solu-Medrol -) 20 mg IVPUSH BID [facility] Last Admin: 04/12/18 10:08 Dose: 20 mg Mirtazapine (Remeron -) 15 mg PEG HS [facility] Last Admin: 04/12/18 00:28 Dose: 15 mg Ondansetron HCl (Zofran Injection) 4 mg IVPUSH Q6H PRN PRN Reason: NAUSEA AND/OR VOMITING Raltegravir (Isentress -) 400 mg NR BID [facility] Last Admin: 04/12/18 10:18 Dose: 400 mg Sertraline HCl (Zoloft -) 50 mg PO DAILY [facility] Last Admin: 04/12/18 10:09 Dose: 50 mg Tramadol HCl (Ultram -) 50 mg PO Q6H PRN PRN Reason: PAIN LEVEL 4 - 6 Last Admin: 04/12/18 10:12 Dose: 50 mg Zolpidem Tartrate (Ambien -) 5 mg PO HS PRN PRN Reason: INSOMNIA Last Admin: 04/12/18 00:28 Dose: 5 mg - Objective Vital Signs: Vital Signs Temperature 98.8 F 04/12/18 11:00 Pulse Rate 112 H 04/12/18 11:00 Respiratory Rate 20 04/12/18 11:00 Blood Pressure 98/66 04/12/18 11:00 O2 Sat by Pulse Oximetry (%) 99 04/12/18 09:00 Constitutional: Yes: Cachectic Cardiovascular: Yes: Regular Rate and Rhythm, S1, S2 Respiratory: Yes: Rhonchi Gastrointestinal: Yes: Normal Bowel Sounds, Soft. No: Tenderness Edema: No Labs: CBC, BMP 04/12/18 05:30 04/12/18 05:30 INR, PTT INR 1.02 (0.83-1.09) 04/09/18 09:27 Assessment/Plan High grade fever Bilateral Pneumonia Respiratory failure Klebsiella bacteremia AIDS Continue empiric zosyn
[2018-04-13] MEDS ORDERED: DEXTROSE 5%-WATER - 50 ML IVPB ONE ×3 (01:21→15:18)
[2018-04-13] MEDS ORDERED: PIPERACILLIN/TAZOBACTAM 3.375 GM VIAL IVPB ONE ×3 (01:21→15:18)
[2018-04-13] MEDS: PIPERACILLIN/TAZOB 3.375 GM 3.375 GM in DEXTROSE 5%-WATER - 50 ML IVPB SCH ×3 (01:28→17:56)
[2018-04-13] MEDS: clonazePAM 0.5 MG TABLET GT PRN ×4 (01:28→23:35)
[2018-04-13] MEDS: ALBUTEROL SO4 0.083% IH SOL 2.5 MG/3 ML VIAL.NEB. NEB SCH ×5 (06:30→21:10)
[2018-04-13] MEDS: ACETYLCYSTEINE 20% 200MG/ML 4 ML VIAL *FOR ORAL / INH USE ONLY NEB SCH ×5 (06:30→21:10)
[2018-04-13] MEDS: HEPARIN NA (PORCINE) 5,000 UNITS/ML 1ML VIAL SQ SCH ×3 (06:52→22:20)
[2018-04-13 07:10] LABS: BASO % 0.1 % (0-2.0); EOS % 0.1 % (0-4.5); HEMATOCRIT 34.1 % (32.4-45.2); LYMPH % 2.4 % (8-40); MCH 32.4 pg (25.7-33.7); MCHC 32.2 g/dl (32.0-36.0); MEAN CELL VOLUME 100.4 fl (80-96); MONO % 2.3 % (3.8-10.2); NEUT % 95.1 % (42.8-82.8); PLATELET COUNT 408 K/MM3 (134-434); RBC 3.39 M/mm3 (3.60-5.2); RDW 15.2 % (11.6-15.6); WHITE BLOOD COUNT 23.8 K/mm3 (4.0-10.0)
[2018-04-13 07:45] LABS: CHLORIDE 102 mmol/L (98-107); POTASSIUM 4.2 mmol/L (3.5-5.1); SODIUM 142 mmol/L (136-145)
[2018-04-13] MEDS: AMINO ACIDS/PROTEIN HYDROLYS 30 ML LIQUID.PKT GT SCH ×3 (07:48→22:14)
[2018-04-13] MEDS: SODIUM CHLORIDE 1,000 ML IV SCH ×2 (08:00→19:15)
[2018-04-13 08:04] LABS: ALBUMIN 2.6 g/dl (3.4-5.0); ALK PHOS 105 U/L (45-117); ANION GAP 12 MMOL/L (8-16); BILIRUBIN,TOTAL 0.3 mg/dL (0.2-1.0); BLOOD UREA NITROGEN 36 mg/dL (7-18); CALCIUM 9.2 mg/dL (8.5-10.1); CO2 28 mmol/L (21-32); CREATININE 0.5 mg/dL (0.55-1.02); GLUCOSE,RANDOM 166 mg/dL (74-106); MAGNESIUM 2.5 mg/dL (1.8-2.4); SGOT/AST 17 U/L (15-37); SGPT/ALT 23 U/L (12-78); TOT PROT 6.7 g/dl (6.4-8.2)
[2018-04-13] MEDS: ETRAVIRINE 100 MG TABLET PO SCH ×2 (09:47→17:57)
[2018-04-13] MEDS: LACTOBACILLUS ACIDOPHILUS 1 TABLET PO SCH (09:48)
[2018-04-13] MEDS: RALTEGRAVIR POTASSIUM 400 MG TAB NR SCH ×2 (09:49→22:03)
[2018-04-13] MEDS: GABAPENTIN 250 MG/5 ML ORAL SOLUTION, 470 ML BOTTLE PEG SCH ×2 (09:49→22:05)
[2018-04-13] MEDS: FAMOTIDINE 20 MG/50 ML IVPB 20 MG/50 ML MG IVPB SCH ×2 (09:50→22:02)
[2018-04-13] MEDS: methylPREDNISolone NA SUCC 40 MG/1 ML VIAL IVPUSH SCH ×2 (09:51→22:16)
[2018-04-13] MEDS: EMTRICITABINE 200MG/TENOFOVIR 300MG PO SCH (09:52)
[2018-04-13] MEDS: SERTRALINE HCL 50 MG TABLET (FP) PO SCH (09:53)
[2018-04-13 10:09] LABS: ANISOCYTOSIS 1+; MACROCYTOSIS 1+; OVALOCYTE 1+; PLATELET ESTIMATE NORMAL
[2018-04-13] MEDS: FLUTICASONE PROP 0.05% 16 GM NASAL SPRAY NS SCH (10:12)
[2018-04-13] MEDS: IBUPROFEN 600 MG TABLET (FP) PO PRN (10:27)
[2018-04-13] MEDS: traMADol HCL 50 MG TABLET PO PRN ×2 (10:28→17:54)
[2018-04-13] MEDS: BUDESONIDE/FORMETEROL FUMARATE 160/4.5 mcg INHALER IH SCH ×2 (10:38→22:14)
--- NOTE | 2018-04-13 10:59 | PN ---
Progress Note, Physician History of Present Illness: pulmonary alert,still congested,afebrile - Current Medication List Current Medications: Active Medications Acetaminophen (Tylenol -) 650 mg PO Q6H PRN PRN Reason: FEVER Last Admin: 04/11/18 17:08 Dose: 650 mg Acetylcysteine (Mucomyst 20 Oral / Inh Use Only*) 200 mg NEB Q4HWA [facility] Last Admin: 04/13/18 06:30 Dose: 200 mg Albuterol Sulfate (Ventolin 0.083% Nebulizer Soln -) 1 amp NEB Q4HWA [facility] Last Admin: 04/13/18 06:30 Dose: 1 amp Amino Acids (Prosource No Carb Liquid Pkt) 30 ml GT BID@0800,1730 [facility] Last Admin: 04/13/18 07:48 Dose: 30 ml Budesonide/Formoterol Fumarate (Symbicort 160/4.5mcg -) 2 puff IH BID [facility] Last Admin: 04/13/18 10:38 Dose: 2 puff Clonazepam (Klonopin -) 0.25 mg GT Q6HPO PRN PRN Reason: ANXIETY Last Admin: 04/13/18 07:42 Dose: 0.25 mg Emtricitabine/Tenofovir (Truvada) 1 tab PO DAILY [facility] Last Admin: 04/13/18 09:52 Dose: 1 tab Etravirine (Intelence -) 100 mg PO BIDPC [facility] Last Admin: 04/13/18 09:47 Dose: 100 mg Fluticasone Propionate (Flonase -) 1 spray NS DAILY [facility] Last Admin: 04/13/18 10:12 Dose: 1 spray Gabapentin (Neurontin Oral Liquid -) 250 mg PEG BID [facility] Last Admin: 04/13/18 09:49 Dose: 250 mg Heparin Sodium (Porcine) (Heparin -) 5,000 unit SQ TID [facility] Last Admin: 04/13/18 06:52 Dose: 5,000 unit Famotidine/Sodium Chloride (Pepcid 20 Mg Premixed Ivpb -) 20 mg in 50 mls @ 100 mls/hr IVPB BID [facility] Last Admin: 04/13/18 09:50 Dose: 100 mls/hr Piperacillin Sod/Tazobactam (Sod 3.375 gm/ Dextrose) 50 mls @ 100 mls/hr IVPB Q8H-IV [facility]; Protocol Last Admin: 04/13/18 09:53 Dose: 100 mls/hr Sodium Chloride (Normal Saline -) 1,000 mls @ 75 mls/hr IV ASDIR [facility] Last Admin: 04/12/18 08:00 Dose: 75 mls/hr Ibuprofen (Motrin -) 600 mg PO Q8H PRN PRN Reason: FEVER Last Admin: 04/13/18 10:27 Dose: 600 mg Lactobacillus Acidophilus (Bacid -) 1 tab PO DAILY [facility] Last Admin: 04/13/18 09:48 Dose: 1 tab Melatonin (Melatonin) 5 mg PO HS PRN PRN Reason: INSOMNIA Last Admin: 04/08/18 22:03 Dose: 5 mg Methylprednisolone Sodium Succinate (Solu-Medrol -) 20 mg IVPUSH BID [facility] Last Admin: 04/13/18 09:51 Dose: 20 mg Mirtazapine (Remeron -) 15 mg PEG HS [facility] Last Admin: 04/12/18 22:04 Dose: 15 mg Ondansetron HCl (Zofran Injection) 4 mg IVPUSH Q6H PRN PRN Reason: NAUSEA AND/OR VOMITING Raltegravir (Isentress -) 400 mg NR BID [facility] Last Admin: 04/13/18 09:49 Dose: 400 mg Sertraline HCl (Zoloft -) 50 mg PO DAILY [facility] Last Admin: 04/13/18 09:53 Dose: 50 mg Tramadol HCl (Ultram -) 50 mg PO Q6H PRN PRN Reason: PAIN LEVEL 4 - 6 Last Admin: 04/13/18 10:28 Dose: 50 mg Zolpidem Tartrate (Ambien -) 5 mg PO HS PRN PRN Reason: INSOMNIA Last Admin: 04/12/18 22:21 Dose: 5 mg - Objective Vital Signs: Vital Signs Temperature 98.2 F 04/13/18 01:00 Pulse Rate 100 H 04/13/18 06:00 Respiratory Rate 20 04/13/18 06:00 Blood Pressure 100/62 04/13/18 06:00 O2 Sat by Pulse Oximetry (%) 96 04/12/18 23:33 Constitutional: Yes: Calm, Thin Eyes: Yes: WNL HENT: Yes: WNL Neck: Yes: WNL Cardiovascular: Yes: Regular Rate and Rhythm, S1, S2 Respiratory: Yes: Rhonchi (bilateral rhonchi) Gastrointestinal: Yes: Normal Bowel Sounds, Soft Extremities: Yes: WNL Edema: No Labs: CBC, BMP 04/13/18 05:30 04/13/18 05:30 INR, PTT INR 1.02 (0.83-1.09) 04/09/18 09:27 - ....Imaging Cat Scan: Report Reviewed, Image Reviewed (bilateral pneumonia amber,ll,rll) Problem List - Problems (1) Acute on chronic respiratory failure with hypoxia and hypercapnia Code(s): J96.21 - ACUTE AND CHRONIC RESPIRATORY FAILURE WITH HYPOXIA; J96.22 - ACUTE AND CHRONIC RESPIRATORY FAILURE WITH HYPERCAPNIA (2) Laryngeal carcinoma Code(s): C32.9 - MALIGNANT NEOPLASM OF LARYNX, UNSPECIFIED (3) Pneumonia Code(s): J18.9 - PNEUMONIA, UNSPECIFIED ORGANISM Qualifiers: Pneumonia type: due to unspecified organism Laterality: bilateral Lung location: unspecified part of lung Qualified Code(s): J18.9 - Pneumonia, unspecified organism (4) AIDS Code(s): B20 - HUMAN IMMUNODEFICIENCY VIRUS [HIV] DISEASE (5) Difficulty breathing Code(s): R06.89 - OTHER ABNORMALITIES OF BREATHING (6) HIV (human immunodeficiency virus infection) Code(s): Z21 - ASYMPTOMATIC HUMAN IMMUNODEFICIENCY VIRUS INFECTION STATUS (7) Head and neck cancer Code(s): C76.0 - MALIGNANT NEOPLASM OF HEAD, FACE AND NECK Assessment/Plan A/P Acute on Chronic Hypoxic Respiratory Failure improving Pneumonia ARDS resolving Klebsiella Bacteremia Sepsis HIV/AIDS h/o Laryngeal Ca s/p trach/PEG Pleural effusion exudatelikely uncomplicated parapneumonic effusion - antibiotics as per ID - continue bacid - inhaled bronchodilators with mucomyst - pain control - chest PT/bed percussion - taper Fio2 to keep SpO2 >90% - continue ART - DVT prophylaxis - steroids DR MAYER
--- NOTE | 2018-04-13 12:26 | PN ---
Physical Exam: SUBJECTIVE: Patient seen and examined at bedside. Three nights of night sweats. OBJECTIVE: Vital Signs Period Temp Pulse Resp BP Sys/Lisa Pulse Ox Last 24 Hr 98.2 F-102.3 F 100-120 18-20 90-118/56-92 96-97 GENERAL: The patient is awake, alert, and fully oriented. Thin, frail, cachectic , temporal wasting, protruding clavicles LUNGS: Trach/trach collar, uses passy casey valve; diffuse wheezing on auscultation HEART: Regular rate and rhythm, S1, S2 ABDOMEN: Soft, nontender, nondistended EXTREMITIES: 2+ pulses, warm, well-perfused, no edema. NEUROLOGICAL: Cranial nerves II through XII grossly intact. Normal speech, gait not observed. PSYCH: Tearful Laboratory Results - last 24 hr 04/13/18 04/13/18 05:30 05:30 WBC 23.8 H RBC 3.39 L Hgb 11.0 Hct 34.1 MCV 100.4 H MCH 32.4 MCHC 32.2 RDW 15.2 Plt Count 408 MPV 9.0 Absolute Neuts (auto) 22.6 H Neutrophils % 95.1 H Neutrophils % (Manual) 91.9 H Band Neutrophils % 7.1 Lymphocytes % 2.4 L Lymphocytes % (Manual) 1.0 L D Monocytes % 2.3 L Monocytes % (Manual) 0 L D Eosinophils % 0.1 D Eosinophils % (Manual) 0.0 Basophils % 0.1 Basophils % (Manual) 0.0 Myelocytes % (Man) 0 Promyelocytes % (Man) 0 Blast Cells % (Manual) 0 Nucleated RBC % 0 Metamyelocytes 0 Hypochromia 0 Platelet Estimate Normal Polychromasia 1+ Poikilocytosis 0 Anisocytosis 1+ Microcytosis 0 Macrocytosis 1+ Ovalocytes 1+ Sodium 142 Potassium 4.2 Chloride 102 Carbon Dioxide 28 Anion Gap 12 BUN 36 H Creatinine 0.5 L Creat Clearance w eGFR > 60 Random Glucose 166 H Calcium 9.2 Magnesium 2.5 H Total Bilirubin 0.3 AST 17 ALT 23 Alkaline Phosphatase 105 D Total Protein 6.7 Albumin 2.6 L Active Medications Generic Name Dose Route Start Last Admin Trade Name Freq PRN Reason Stop Dose Admin Acetaminophen 650 mg 04/03/18 15:41 04/11/18 17:08 Tylenol - PO 650 mg Q6H PRN Administration FEVER Acetylcysteine 200 mg 04/03/18 10:30 04/13/18 06:30 Mucomyst 20 Oral / Inh Use Only* NEB 200 mg Q4HWA RAZ Administration Albuterol Sulfate 1 amp 04/03/18 10:30 04/13/18 06:30 Ventolin 0.083% Nebulizer Soln - NEB 1 amp Q4HWA RAZ Administration Amino Acids 30 ml 04/07/18 20:14 04/13/18 07:48 Prosource No Carb Liquid Pkt GT 30 ml BID@0800,1730 RAZ Administration Budesonide/Formoterol Fumarate 2 puff 04/03/18 22:00 04/13/18 10:38 Symbicort 160/4.5mcg - IH 2 puff BID RAZ Administration Clonazepam 0.25 mg 04/09/18 07:18 04/13/18 07:42 Klonopin - GT 0.25 mg Q6HPO PRN Administration ANXIETY Emtricitabine/Tenofovir 1 tab 04/04/18 10:00 04/13/18 09:52 Truvada PO 1 tab DAILY RAZ Administration Etravirine 100 mg 04/03/18 18:30 04/13/18 09:47 Intelence - PO 100 mg BIDPC RAZ Administration Fluticasone Propionate 1 spray 04/04/18 10:00 04/13/18 10:12 Flonase - NS 1 spray DAILY RAZ Administration Gabapentin 250 mg 04/03/18 22:00 04/13/18 09:49 Neurontin Oral Liquid - PEG 250 mg BID RAZ Administration Heparin Sodium (Porcine) 5,000 unit 04/03/18 22:00 04/13/18 06:52 Heparin - SQ 5,000 unit TID RAZ Administration Famotidine/Sodium Chloride 20 mg in 50 mls @ 100 mls/hr 04/03/18 22:00 09:50 Pepcid 20 Mg Premixed Ivpb - IVPB 100 mls/hr BID RAZ Administration Piperacillin Sod/Tazobactam 50 mls @ 100 mls/hr 04/11/18 12:45 04/13/18 09:53 Sod 3.375 gm/ Dextrose IVPB 100 mls/hr Q8H-IV RAZ Administration Protocol Sodium Chloride 1,000 mls @ 75 mls/hr 04/12/18 07:15 04/12/18 08:00 Normal Saline - IV 75 mls/hr ASDIR RAZ Administration Ibuprofen 600 mg 04/12/18 11:59 04/13/18 10:27 Motrin - PO 600 mg Q8H PRN Administration FEVER Lactobacillus Acidophilus 1 tab 04/03/18 10:45 04/13/18 09:48 Bacid - PO 1 tab DAILY RAZ Administration Melatonin 5 mg 04/03/18 15:41 04/08/18 22:03 Melatonin PO 5 mg HS PRN Administration INSOMNIA Methylprednisolone Sodium Succinate 20 mg 04/11/18 22:00 04/13/18 09:51 Solu-Medrol - IVPUSH 20 mg BID RAZ Administration Mirtazapine 15 mg 04/03/18 22:00 04/12/18 22:04 Remeron - PEG 15 mg HS RAZ Administration Ondansetron HCl 4 mg 04/11/18 19:55 Zofran Injection IVPUSH Q6H PRN NAUSEA AND/OR VOMITING Raltegravir 400 mg 04/03/18 22:00 04/13/18 09:49 Isentress - NR 400 mg BID RAZ Administration Sertraline HCl 50 mg 04/04/18 10:00 04/13/18 09:53 Zoloft - PO 50 mg DAILY RAZ Administration Tramadol HCl 50 mg 04/03/18 12:02 04/13/18 10:28 Ultram - PO 50 mg Q6H PRN Administration PAIN LEVEL 4 - 6 Zolpidem Tartrate 5 mg 04/04/18 12:17 04/12/18 22:21 Ambien - PO 5 mg HS PRN Administration INSOMNIA ASSESSMENT/PLAN 47 year-old female with a PMH significant for HIV/AIDS, laryngeal cancer s/p trach and PEG, HBV, and failure to thrive. Admitted for sepsis secondary to bilateral pneumonia. Sepsis secondary to bilateral pneumonia Bilateral pleural effusions --on admission, WBC elevated, temp 101.4, pulse 121, RR 28, and CXR showed bibasilar pneumonia with pleural effusions; thoracentesis on 04/09 showed exudative fluid --treated with Zosyn (03/28-->03/31) and cefazolin (04/03--> 04/11) --04/11 started to spike fevers to 104.6; cefazolin was stopped, Zosyn was resumed (04/11--> ); WBC trending steadily up, today 23.8k --04/12 CT chest: JENNIFER and bilateral lower lobe acute PNA --continue Zosyn (day #3) Klebsiella bacteremia, resolved --treated with cefazolin (04/03-->04/11) --03/30 and 04/03 blood cultures negative --04/09 and 04/11 blood cultures NGTD HIV/AIDS --CD4 311 --continue HAART Laryngeal cancer --no acute issues Hep B --no acute issues Failure to thrive Severe malnutrition --tube feeds via gravity FEN Fluids/nutrition: tube feeds via gravity Electrolytes: replete as indicated DVT prophylaxis: subq heparin Physical therapy Dispo: continues to require inpatient care. Full code. Visit type - Emergency Visit Emergency Visit: Yes ED Registration Date: 03/28/18 Care time: The patient presented to the Emergency Department on the above date and was hospitalized for further evaluation of their emergent condition. - New Patient This patient is new to me today: Yes Date on this admission: 04/13/18 - Critical Care Critical Care patient: No
--- NOTE | 2018-04-13 15:37 | PN ---
Progress Note, Physician Chief Complaint: Pt, with at bedside, is sitting up, arranging lorenzo. Denies chest pain ; still with SOB on minimal exertion. History of Present Illness: The patient is a 47 year old female with a history of laryngeal cancer s/p trach and peg, AIDs, HIV, Hep B, failure to thrive who presents for evaluation of difficulty breath ing, vomiting, and chest pain. The patient reports a 4 day history of worsening right sided chest pain, nausea, vomiting and difficulty breathing prompting her presentation to the ED for further evaluation. She notes that the chest pain initially was sharp, but now is a tightness worse with deep inspiration. She notes purulent cough as well with increased mucus from her trach. She has also noted fevers to 103 at home that has been minimally responsive to tylenol. The patient otherwise denies chills, abdominal pain, or changes with urination or bowel movements. Asked to see pt due to sudden central strong chest tightness that occured last night after pt had a prolonged coughing spell. The discomfor lasted for a few seconds. She denies having a hx of chest pain except with or after cough. She usually walks rapidly and "outwalks everybody", often walking a few blocks in a day, though gets fatigued walking uphill. - Current Medication List Current Medications: Active Medications Acetaminophen (Tylenol -) 650 mg PO Q6H PRN PRN Reason: FEVER Last Admin: 04/11/18 17:08 Dose: 650 mg Acetylcysteine (Mucomyst 20 Oral / Inh Use Only*) 200 mg NEB Q4HWA RAZ Last Admin: 04/13/18 06:30 Dose: 200 mg Albuterol Sulfate (Ventolin 0.083% Nebulizer Soln -) 1 amp NEB Q4HWA RAZ Last Admin: 04/13/18 06:30 Dose: 1 amp Amino Acids (Prosource No Carb Liquid Pkt) 30 ml GT TID RAZ Last Admin: 04/13/18 15:19 Dose: 30 ml Budesonide/Formoterol Fumarate (Symbicort 160/4.5mcg -) 2 puff IH BID RAZ Last Admin: 04/13/18 10:38 Dose: 2 puff Clonazepam (Klonopin -) 0.25 mg GT Q6HPO PRN PRN Reason: ANXIETY Last Admin: 04/13/18 07:42 Dose: 0.25 mg Emtricitabine/Tenofovir (Truvada) 1 tab PO DAILY [facility] Last Admin: 04/13/18 09:52 Dose: 1 tab Etravirine (Intelence -) 100 mg PO BIDPC [facility] Last Admin: 04/13/18 09:47 Dose: 100 mg Fluticasone Propionate (Flonase -) 1 spray NS DAILY [facility] Last Admin: 04/13/18 10:12 Dose: 1 spray Gabapentin (Neurontin Oral Liquid -) 250 mg PEG BID [facility] Last Admin: 04/13/18 09:49 Dose: 250 mg Heparin Sodium (Porcine) (Heparin -) 5,000 unit SQ TID [facility] Last Admin: 04/13/18 14:44 Dose: 5,000 unit Famotidine/Sodium Chloride (Pepcid 20 Mg Premixed Ivpb -) 20 mg in 50 mls @ 100 mls/hr IVPB BID [facility] Last Admin: 04/13/18 09:50 Dose: 100 mls/hr Piperacillin Sod/Tazobactam (Sod 3.375 gm/ Dextrose) 50 mls @ 100 mls/hr IVPB Q8H-IV [facility]; Protocol Last Admin: 04/13/18 09:53 Dose: 100 mls/hr Lactobacillus Acidophilus (Bacid -) 1 tab PO DAILY [facility] Last Admin: 04/13/18 09:48 Dose: 1 tab Methylprednisolone Sodium Succinate (Solu-Medrol -) 20 mg IVPUSH BID [facility] Last Admin: 04/13/18 09:51 Dose: 20 mg Mirtazapine (Remeron -) 15 mg PEG HS [facility] Last Admin: 04/12/18 22:04 Dose: 15 mg Ondansetron HCl (Zofran Injection) 4 mg IVPUSH Q6H PRN PRN Reason: NAUSEA AND/OR VOMITING Raltegravir (Isentress -) 400 mg NR BID [facility] Last Admin: 04/13/18 09:49 Dose: 400 mg Sertraline HCl (Zoloft -) 50 mg PO DAILY [facility] Last Admin: 04/13/18 09:53 Dose: 50 mg Tramadol HCl (Ultram -) 50 mg PO Q6H PRN PRN Reason: PAIN LEVEL 4 - 6 Last Admin: 04/13/18 10:28 Dose: 50 mg Zolpidem Tartrate (Ambien -) 5 mg PO HS PRN PRN Reason: INSOMNIA Last Admin: 04/12/18 22:21 Dose: 5 mg - Objective Vital Signs: Vital Signs Temperature 98.2 F 04/13/18 01:00 Pulse Rate 95 H 04/13/18 14:49 Respiratory Rate 20 04/13/18 14:49 Blood Pressure 114/79 04/13/18 14:49 O2 Sat by Pulse Oximetry (%) 96 04/12/18 23:33 Constitutional: Yes: Calm Eyes: Yes: WNL HENT: Yes: WNL Neck: Yes: WNL, Other (tracheostomy) Cardiovascular: Yes: S1, S2 Respiratory: Yes: SOB on Exertion, Tachypnea Gastrointestinal: Yes: Soft ...Rectal Exam: Yes: Deferred Genitourinary: No: Anuria Breast(s): Yes: WNL Musculoskeletal: Yes: Muscle Weakness Extremities: Yes: Cool Edema: No Peripheral Pulses WNL: Yes Integumentary: Yes: Other Neurological: Yes: Alert, Oriented, Weakness Psychiatric: Yes: WNL Labs: CBC, BMP 04/13/18 05:30 04/13/18 05:30 INR, PTT INR 1.02 (0.83-1.09) 04/09/18 09:27 Abnormal Lab Results 04/13/18 04/14/18 04/14/18 05:30 07:45 07:45 WBC 10.9 H RBC 2.87 L Hgb 9.4 L Hct 28.3 L D MCV 98.4 H Absolute Neuts (auto) 9.4 H Neutrophils % 86.0 H Neutrophils % (Manual) 91.9 H Lymphocytes % (Manual) 1.0 L D Monocytes % (Manual) 0 L D Anion Gap 5 L BUN 35 H Creatinine 0.3 L Random Glucose 125 H Calcium 8.3 L Total Protein 5.3 L Albumin 2.0 L - ....Imaging Other: Image Reviewed (refuses telemetry) Problem List - Problems (1) Acute on chronic respiratory failure with hypoxia and hypercapnia Assessment/Plan: tracheostomy. On bronchodilators, O2, steroids per pumonary. Code(s): J96.21 - ACUTE AND CHRONIC RESPIRATORY FAILURE WITH HYPOXIA; J96.22 - ACUTE AND CHRONIC RESPIRATORY FAILURE WITH HYPERCAPNIA (2) Laryngeal carcinoma Code(s): C32.9 - MALIGNANT NEOPLASM OF LARYNX, UNSPECIFIED (3) AIDS Code(s): B20 - HUMAN IMMUNODEFICIENCY VIRUS [HIV] DISEASE (4) Tobacco dependence Code(s): F17.200 - NICOTINE DEPENDENCE, UNSPECIFIED, UNCOMPLICATED (5) Tracheostomy dependence Code(s): Z93.0 - TRACHEOSTOMY STATUS (6) Atypical chest pain Assessment/Plan: Chest pain after coughing; no prior hx chest pain. She walks relatively frequently, and denies exertional chest discomfort. No acute STT changes on EKG. TNI <0.02 on multiple checks. Cholesterol well-controlled. F/u TFTs (decreased TSH earler thisw year) ECHO 2016: normal LVEF; ? small, loculated pericardial effusion; will repeat for chamber sizes, LVEF, r/u effusion. Code(s): R07.89 - OTHER CHEST PAIN (7) Acute on chronic diastolic CHF (congestive heart failure) Code(s): I50.33 - ACUTE ON CHRONIC DIASTOLIC (CONGESTIVE) HEART FAILURE
[2018-04-13] MEDS: ZOLPIDEM TARTRATE 5 MG TABLET PO PRN (22:04)
[2018-04-13] MEDS: MIRTAZAPINE 15 MG TABLET (FP) PEG SCH (22:05)
[2018-04-14] MEDS ORDERED: PIPERACILLIN/TAZOBACTAM 3.375 GM VIAL IVPB ONE ×3 (01:04→17:30)
[2018-04-14] MEDS ORDERED: DEXTROSE 5%-WATER - 50 ML IVPB ONE ×3 (01:05→17:30)
[2018-04-14] MEDS: PIPERACILLIN/TAZOB 3.375 GM 3.375 GM in DEXTROSE 5%-WATER - 50 ML IVPB SCH ×3 (01:10→17:33)
[2018-04-14] MEDS: ACETYLCYSTEINE 20% 200MG/ML 4 ML VIAL *FOR ORAL / INH USE ONLY NEB SCH ×6 (02:03→22:19)
[2018-04-14] MEDS: ALBUTEROL SO4 0.083% IH SOL 2.5 MG/3 ML VIAL.NEB. NEB SCH ×6 (02:04→22:19)
[2018-04-14] MEDS: AMINO ACIDS/PROTEIN HYDROLYS 30 ML LIQUID.PKT GT SCH ×3 (06:22→21:50)
[2018-04-14] MEDS: HEPARIN NA (PORCINE) 5,000 UNITS/ML 1ML VIAL SQ SCH ×3 (06:22→21:54)
[2018-04-14 08:00] LABS: BASO % 0.1 % (0-2.0); EOS % 0.1 % (0-4.5); HEMATOCRIT 28.3 % (32.4-45.2); HEMOGLOBIN 9.4 GM/dL (10.7-15.3); LYMPH % 9.2 % (8-40); MCH 32.8 pg (25.7-33.7); MCHC 33.4 g/dl (32.0-36.0); MEAN CELL VOLUME 98.4 fl (80-96); MEAN PLT VOLUME 8.7 fl (7.5-11.1); MONO % 4.6 % (3.8-10.2); PLATELET COUNT 293 K/MM3 (134-434); RBC 2.87 M/mm3 (3.60-5.2); WHITE BLOOD COUNT 10.9 K/mm3 (4.0-10.0)
[2018-04-14 08:32] LABS: CHLORIDE 104 mmol/L (98-107); POTASSIUM 3.8 mmol/L (3.5-5.1); SODIUM 140 mmol/L (136-145)
[2018-04-14 08:39] LABS: ALK PHOS 75 U/L (45-117); ANION GAP 5 MMOL/L (8-16); BILIRUBIN,TOTAL 0.2 mg/dL (0.2-1.0); BLOOD UREA NITROGEN 35 mg/dL (7-18); CALCIUM 8.3 mg/dL (8.5-10.1); CO2 31 mmol/L (21-32); CREATININE 0.3 mg/dL (0.55-1.02); GLUCOSE,RANDOM 125 mg/dL (74-106); MAGNESIUM 2.1 mg/dL (1.8-2.4); SGOT/AST 35 U/L (15-37); SGPT/ALT 35 U/L (12-78); TOT PROT 5.3 g/dl (6.4-8.2)
[2018-04-14] MEDS ORDERED: PT OWN MED DRAWER 7, Y5N ONE (08:59)
[2018-04-14] MEDS: ETRAVIRINE 100 MG TABLET PO SCH ×2 (10:01→17:33)
[2018-04-14] MEDS: SERTRALINE HCL 50 MG TABLET (FP) PO SCH (10:01)
[2018-04-14] MEDS: methylPREDNISolone NA SUCC 40 MG/1 ML VIAL IVPUSH SCH ×2 (10:01→21:55)
[2018-04-14] MEDS: LACTOBACILLUS ACIDOPHILUS 1 TABLET PO SCH (10:01)
[2018-04-14] MEDS: EMTRICITABINE 200MG/TENOFOVIR 300MG PO SCH (10:02)
[2018-04-14] MEDS: FAMOTIDINE 20 MG/50 ML IVPB 20 MG/50 ML MG IVPB SCH ×2 (10:02→21:55)
[2018-04-14] MEDS: BUDESONIDE/FORMETEROL FUMARATE 160/4.5 mcg INHALER IH SCH ×2 (10:02→21:57)
[2018-04-14] MEDS: RALTEGRAVIR POTASSIUM 400 MG TAB NR SCH ×2 (10:04→22:22)
[2018-04-14] MEDS: FLUTICASONE PROP 0.05% 16 GM NASAL SPRAY NS SCH (10:04)
[2018-04-14 10:21] LABS: ANISOCYTOSIS 1+; MACROCYTOSIS 1+; PLATELET ESTIMATE NORMAL
[2018-04-14] MEDS: GABAPENTIN 250 MG/5 ML ORAL SOLUTION, 470 ML BOTTLE PEG SCH ×2 (12:16→21:50)
--- NOTE | 2018-04-14 12:21 | PN ---
Progress Note, Physician History of Present Illness: pulmonary alert,less congested,less dyspneic - Current Medication List Current Medications: Active Medications Acetaminophen (Tylenol -) 650 mg PO Q6H PRN PRN Reason: FEVER Last Admin: 04/11/18 17:08 Dose: 650 mg Acetylcysteine (Mucomyst 20 Oral / Inh Use Only*) 200 mg NEB Q4HWA RAZ Last Admin: 04/14/18 10:05 Dose: 200 mg Albuterol Sulfate (Ventolin 0.083% Nebulizer Soln -) 1 amp NEB Q4HWA RAZ Last Admin: 04/14/18 10:05 Dose: 1 amp Amino Acids (Prosource No Carb Liquid Pkt) 30 ml GT TID RAZ Last Admin: 04/14/18 06:22 Dose: 30 ml Budesonide/Formoterol Fumarate (Symbicort 160/4.5mcg -) 2 puff IH BID [facility] Last Admin: 04/14/18 10:02 Dose: 2 puff Clonazepam (Klonopin -) 0.25 mg GT Q6HPO PRN PRN Reason: ANXIETY Last Admin: 04/13/18 23:35 Dose: 0.25 mg Emtricitabine/Tenofovir (Truvada) 1 tab PO DAILY [facility] Last Admin: 04/14/18 10:02 Dose: 1 tab Etravirine (Intelence -) 100 mg PO BIDPC [facility] Last Admin: 04/14/18 10:01 Dose: 100 mg Fluticasone Propionate (Flonase -) 1 spray NS DAILY [facility] Last Admin: 04/14/18 10:04 Dose: 1 spray Gabapentin (Neurontin Oral Liquid -) 250 mg PEG BID RAZ Last Admin: 04/14/18 12:16 Dose: 250 mg Heparin Sodium (Porcine) (Heparin -) 5,000 unit SQ TID RAZ Last Admin: 04/14/18 06:22 Dose: 5,000 unit Famotidine/Sodium Chloride (Pepcid 20 Mg Premixed Ivpb -) 20 mg in 50 mls @ 100 mls/hr IVPB BID RAZ Last Admin: 04/14/18 10:02 Dose: 100 mls/hr Piperacillin Sod/Tazobactam (Sod 3.375 gm/ Dextrose) 50 mls @ 100 mls/hr IVPB Q8H-IV RAZ; Protocol Last Admin: 04/14/18 10:02 Dose: 100 mls/hr Sodium Chloride (Normal Saline -) 1,000 mls @ 75 mls/hr IV ASDIR [facility] Last Admin: 04/13/18 19:15 Dose: Not Given Lactobacillus Acidophilus (Bacid -) 1 tab PO DAILY [facility] Last Admin: 04/14/18 10:01 Dose: 1 tab Methylprednisolone Sodium Succinate (Solu-Medrol -) 20 mg IVPUSH BID [facility] Last Admin: 04/14/18 10:01 Dose: 20 mg Mirtazapine (Remeron -) 15 mg PEG HS [facility] Last Admin: 04/13/18 22:05 Dose: 15 mg Ondansetron HCl (Zofran Injection) 4 mg IVPUSH Q6H PRN PRN Reason: NAUSEA AND/OR VOMITING Raltegravir (Isentress -) 400 mg NR BID [facility] Last Admin: 04/14/18 10:04 Dose: 400 mg Sertraline HCl (Zoloft -) 50 mg PO DAILY [facility] Last Admin: 04/14/18 10:01 Dose: 50 mg Tramadol HCl (Ultram -) 50 mg PO Q6H PRN PRN Reason: PAIN LEVEL 4 - 6 Last Admin: 04/13/18 17:54 Dose: 50 mg Zolpidem Tartrate (Ambien -) 5 mg PO HS PRN PRN Reason: INSOMNIA Last Admin: 04/13/18 22:04 Dose: 5 mg - Objective Vital Signs: Vital Signs Temperature 97.8 F 04/14/18 06:20 Pulse Rate 99 H 04/14/18 06:20 Respiratory Rate 22 04/14/18 06:20 Blood Pressure 115/70 04/14/18 06:20 O2 Sat by Pulse Oximetry (%) 97 04/13/18 21:05 Constitutional: Yes: Calm, Thin Eyes: Yes: WNL HENT: Yes: WNL Neck: Yes: Supple (trach) Cardiovascular: Yes: Regular Rate and Rhythm, S1, S2 Respiratory: Yes: Rhonchi (bilateral rhonchi) Gastrointestinal: Yes: Normal Bowel Sounds, Soft Extremities: Yes: WNL Edema: No Labs: CBC, BMP 04/14/18 07:45 04/14/18 07:45 INR, PTT INR 1.02 (0.83-1.09) 09/07/18 09:27 Problem List - Problems (1) Acute on chronic respiratory failure with hypoxia and hypercapnia Code(s): J96.21 - ACUTE AND CHRONIC RESPIRATORY FAILURE WITH HYPOXIA; J96.22 - ACUTE AND CHRONIC RESPIRATORY FAILURE WITH HYPERCAPNIA (2) Laryngeal carcinoma Code(s): C32.9 - MALIGNANT NEOPLASM OF LARYNX, UNSPECIFIED (3) Pneumonia Code(s): J18.9 - PNEUMONIA, UNSPECIFIED ORGANISM Qualifiers: Pneumonia type: due to unspecified organism Laterality: bilateral Lung location: unspecified part of lung Qualified Code(s): J18.9 - Pneumonia, unspecified organism (4) AIDS Code(s): B20 - HUMAN IMMUNODEFICIENCY VIRUS [HIV] DISEASE (5) Difficulty breathing Code(s): R06.89 - OTHER ABNORMALITIES OF BREATHING (6) HIV (human immunodeficiency virus infection) Code(s): Z21 - ASYMPTOMATIC HUMAN IMMUNODEFICIENCY VIRUS INFECTION STATUS (7) Head and neck cancer Code(s): C76.0 - MALIGNANT NEOPLASM OF HEAD, FACE AND NECK Assessment/Plan A/P Acute on Chronic Hypoxic Respiratory Failure improving Bilateral Pneumonia ARDS resolving Klebsiella Bacteremia Sepsis HIV/AIDS h/o Laryngeal Ca s/p trach/PEG Pleural effusion exudatelikely uncomplicated parapneumonic effusion - antibiotics as per ID - continue bacid - inhaled bronchodilators with mucomyst - pain control - chest PT/bed percussion - taper Fio2 to keep SpO2 >90% - continue ART - DVT prophylaxis - steroids DR MAYER
[2018-04-14] MEDS: ACETAMINOPHEN 325 MG TABLET (FP) PO PRN ×2 (12:26→17:37)
--- NOTE | 2018-04-14 13:10 | PN ---
Progress Note, Physician - Current Medication List Current Medications: Active Medications Acetaminophen (Tylenol -) 650 mg PO Q6H PRN PRN Reason: FEVER Last Admin: 04/14/18 12:26 Dose: 650 mg Acetylcysteine (Mucomyst 20 Oral / Inh Use Only*) 200 mg NEB Q4HWA RAZ Last Admin: 04/14/18 10:05 Dose: 200 mg Albuterol Sulfate (Ventolin 0.083% Nebulizer Soln -) 1 amp NEB Q4HWA RAZ Last Admin: 04/14/18 10:05 Dose: 1 amp Amino Acids (Prosource No Carb Liquid Pkt) 30 ml GT TID [facility] Last Admin: 04/14/18 06:22 Dose: 30 ml Budesonide/Formoterol Fumarate (Symbicort 160/4.5mcg -) 2 puff IH BID [facility] Last Admin: 04/14/18 10:02 Dose: 2 puff Clonazepam (Klonopin -) 0.25 mg GT Q6HPO PRN PRN Reason: ANXIETY Last Admin: 04/13/18 23:35 Dose: 0.25 mg Emtricitabine/Tenofovir (Truvada) 1 tab PO DAILY [facility] Last Admin: 04/14/18 10:02 Dose: 1 tab Etravirine (Intelence -) 100 mg PO BIDPC [facility] Last Admin: 04/14/18 10:01 Dose: 100 mg Fluticasone Propionate (Flonase -) 1 spray NS DAILY [facility] Last Admin: 04/14/18 10:04 Dose: 1 spray Gabapentin (Neurontin Oral Liquid -) 250 mg PEG BID [facility] Last Admin: 04/14/18 12:16 Dose: 250 mg Heparin Sodium (Porcine) (Heparin -) 5,000 unit SQ TID [facility]Z Last Admin: 04/14/18 06:22 Dose: 5,000 unit Famotidine/Sodium Chloride (Pepcid 20 Mg Premixed Ivpb -) 20 mg in 50 mls @ 100 mls/hr IVPB BID [facility] Last Admin: 04/14/18 10:02 Dose: 100 mls/hr Piperacillin Sod/Tazobactam (Sod 3.375 gm/ Dextrose) 50 mls @ 100 mls/hr IVPB Q8H-IV [facility]; Protocol Last Admin: 04/14/18 10:02 Dose: 100 mls/hr Sodium Chloride (Normal Saline -) 1,000 mls @ 75 mls/hr IV ASDIR [facility] Last Admin: 04/13/18 19:15 Dose: Not Given Lactobacillus Acidophilus (Bacid -) 1 tab PO DAILY [facility] Last Admin: 04/14/18 10:01 Dose: 1 tab Methylprednisolone Sodium Succinate (Solu-Medrol -) 20 mg IVPUSH BID [facility] Last Admin: 04/14/18 10:01 Dose: 20 mg Mirtazapine (Remeron -) 15 mg PEG HS [facility] Last Admin: 04/13/18 22:05 Dose: 15 mg Ondansetron HCl (Zofran Injection) 4 mg IVPUSH Q6H PRN PRN Reason: NAUSEA AND/OR VOMITING Raltegravir (Isentress -) 400 mg NR BID [facility] Last Admin: 04/14/18 10:04 Dose: 400 mg Sertraline HCl (Zoloft -) 50 mg PO DAILY [facility] Last Admin: 04/14/18 10:01 Dose: 50 mg Tramadol HCl (Ultram -) 50 mg PO Q6H PRN PRN Reason: PAIN LEVEL 4 - 6 Last Admin: 04/13/18 17:54 Dose: 50 mg Zolpidem Tartrate (Ambien -) 5 mg PO HS PRN PRN Reason: INSOMNIA Last Admin: 04/13/18 22:04 Dose: 5 mg - Objective Vital Signs: Vital Signs Temperature 101 F H 04/14/18 13:08 Pulse Rate 118 H 04/14/18 10:00 Respiratory Rate 26 H 04/14/18 10:00 Blood Pressure 133/67 04/14/18 10:00 O2 Sat by Pulse Oximetry (%) 97 04/13/18 21:05 Eyes: Yes: WNL, Conjunctiva Clear, EOM Intact HENT: Yes: WNL, Atraumatic, Normocephalic Neck: Yes: WNL, Supple, Trachea Midline Cardiovascular: Yes: WNL, Regular Rate and Rhythm Respiratory: Yes: Diminished Gastrointestinal: Yes: WNL, Normal Bowel Sounds Genitourinary: Yes: WNL Musculoskeletal: Yes: WNL Extremities: Yes: WNL Edema: No Integumentary: Yes: WNL Neurological: Yes: WNL, Alert, Oriented ...Motor Strength: WNL Psychiatric: Yes: WNL Labs: CBC, BMP 04/14/18 07:45 04/14/18 07:45 INR, PTT INR 1.02 (0.83-1.09) 04/09/18 09:27 Assessment/Plan Problems (1) Acute on chronic respiratory failure with hypoxia and hypercapnia Assessment/Plan: tracheostomy. On bronchodilators, O2, steroids per [facility]. Code(s): J96.21 - ACUTE AND CHRONIC RESPIRATORY FAILURE WITH HYPOXIA; J96.22 - ACUTE AND CHRONIC RESPIRATORY FAILURE WITH HYPERCAPNIA (2) Laryngeal carcinoma Code(s): C32.9 - MALIGNANT NEOPLASM OF LARYNX, UNSPECIFIED (3) AIDS Code(s): B20 - HUMAN IMMUNODEFICIENCY VIRUS [HIV] DISEASE (4) Tobacco dependence Code(s): F17.200 - NICOTINE DEPENDENCE, UNSPECIFIED, UNCOMPLICATED (5) Tracheostomy dependence Code(s): Z93.0 - TRACHEOSTOMY STATUS (6) Atypical chest pain Assessment/Plan: Chest pain after coughing; no prior hx chest pain. She walks relatively frequently, and denies exertional chest discomfort. No acute STT changes on EKG. TNI <0.02 on multiple checks. Cholesterol well-controlled. F/u TFTs (decreased TSH earler thisw year) ECHO 2016: normal LVEF; ? small, loculated pericardial effusion; will repeat for chamber sizes, LVEF, r/u effusion. Code(s): R07.89 - OTHER CHEST PAIN (7) Acute on chronic diastolic CHF (congestive heart failure) Assessment/Plan: Dyspnea on mild exertion. Pleural effusion on CXR. F/u BNP. ECHO for LVEF, wall thickness and motion, valve status, chamber sizes. F/u BUN/Cr, Is and Os, daily weight, electrolytes. Code(s): I50.33 - ACUTE ON CHRONIC DIASTOLIC (CONGESTIVE) HEART FAILURE (8) Pericardial effusion Assessment/Plan: small pericardial effusion; no hemodynamic compromise; unchanged from 04/08/18 to 04/12/18. Normal LVEF Code(s): I31.3 - PERICARDIAL EFFUSION (NONINFLAMMATORY)
--- NOTE | 2018-04-14 14:03 | PN ---
Progress Note, HEAD OF DATA - Note Progress Note: Selected Entries 04/11/18 04/11/18 04/11/18 10:00 10:30 12:30 Lunch Temperature 98.6 F 104.6 F H 102.6 F H 04/11/18 04/11/18 04/11/18 15:39 18:00 21:26 Lunch Temperature 102.4 F H 101.4 F H 104.6 F H 04/11/18 04/11/18 04/12/18 22:31 23:43 01:19 Lunch Temperature 102.2 F H 100.6 F H 99.8 F H 04/12/18 04/12/18 04/12/18 05:14 11:00 14:27 Lunch Temperature 98.9 F 98.8 F 102.3 F H 04/12/18 04/12/18 04/14/18 16:26 21:00 01:21 Lunch Temperature 98.6 F 98.8 F 98.5 F 04/14/18 04/14/18 04/14/18 06:20 11:38 13:08 Lunch NPO Temperature 97.8 F 101 F H Laboratory Tests 04/11/18 04/12/18 04/13/18 10:25 05:30 05:30 WBC 15.3 H 19.6 H 23.8 H 04/14/18 07:45 WBC 10.9 H 910 ID Awake, alert High grade fever noted Breathing non-labored on trach collar Repeat BC prelim (-) CT chest extensive pneumonia Pt called me, requesting Magic cup to put in her mouth but spit out. Pt with externsive secretions/PNA. Reviewed with staff, pt and her contraindication for any PO trials, even spitting it out, with high risk of aspiration on oral residue. Frequent scrupulous mouth care.
[2018-04-14] MEDS: clonazePAM 0.5 MG TABLET GT PRN ×2 (14:36→21:48)
[2018-04-14] MEDS: traMADol HCL 50 MG TABLET PO PRN (17:37)
[2018-04-14] MEDS ORDERED: VANCOMYCIN 250 MG/5 ML ORAL SOLUTION PO SCH (18:00)
[2018-04-14] MEDS: SODIUM CHLORIDE 1,000 ML IV SCH (19:09)
[2018-04-14] MEDS: MIRTAZAPINE 15 MG TABLET (FP) PEG SCH (21:48)
[2018-04-14] MEDS: ZOLPIDEM TARTRATE 5 MG TABLET PO PRN (22:22)
[2018-04-15] MEDS ORDERED: PIPERACILLIN/TAZOBACTAM 3.375 GM VIAL IVPB ONE ×3 (00:53→17:18)
[2018-04-15] MEDS ORDERED: DEXTROSE 5%-WATER - 50 ML IVPB ONE ×3 (00:53→17:19)
[2018-04-15] MEDS: ACETAMINOPHEN 325 MG TABLET (FP) PO PRN ×2 (01:02→13:51)
[2018-04-15] MEDS: PIPERACILLIN/TAZOB 3.375 GM 3.375 GM in DEXTROSE 5%-WATER - 50 ML IVPB SCH ×3 (01:04→17:39)
[2018-04-15] MEDS: traMADol HCL 50 MG TABLET PO PRN ×3 (01:56→18:43)
[2018-04-15] MEDS ORDERED: ALBUTEROL SO4 0.083% IH SOL 2.5 MG/3 ML VIAL.NEB. NEB ONE (04:12)
[2018-04-15] MEDS: clonazePAM 0.5 MG TABLET GT PRN ×3 (05:04→18:44)
[2018-04-15] MEDS: HEPARIN NA (PORCINE) 5,000 UNITS/ML 1ML VIAL SQ SCH ×3 (06:18→22:02)
[2018-04-15] MEDS: AMINO ACIDS/PROTEIN HYDROLYS 30 ML LIQUID.PKT GT SCH ×3 (06:18→22:02)
[2018-04-15] MEDS: ACETYLCYSTEINE 20% 200MG/ML 4 ML VIAL *FOR ORAL / INH USE ONLY NEB SCH ×5 (06:44→21:53)
[2018-04-15] MEDS: ALBUTEROL SO4 0.083% IH SOL 2.5 MG/3 ML VIAL.NEB. NEB SCH ×5 (06:44→21:53)
[2018-04-15 08:20] LABS: BASO % 0.3 % (0-2.0); EOS % 0.1 % (0-4.5); HEMATOCRIT 28.3 % (32.4-45.2); HEMOGLOBIN 9.4 GM/dL (10.7-15.3); LYMPH % 16.6 % (8-40); MCH 32.6 pg (25.7-33.7); MCHC 33.2 g/dl (32.0-36.0); MEAN CELL VOLUME 98.2 fl (80-96); MEAN PLT VOLUME 8.9 fl (7.5-11.1); MONO % 5.3 % (3.8-10.2); NEUT % 77.7 % (42.8-82.8); PLATELET COUNT 286 K/MM3 (134-434); RBC 2.88 M/mm3 (3.60-5.2); RDW 14.6 % (11.6-15.6)
[2018-04-15 08:51] LABS: ALBUMIN 1.9 g/dl (3.4-5.0); ANION GAP 7 MMOL/L (8-16); BILIRUBIN,TOTAL 0.2 mg/dL (0.2-1.0); BLOOD UREA NITROGEN 25 mg/dL (7-18); CALCIUM 8.1 mg/dL (8.5-10.1); CHLORIDE 103 mmol/L (98-107); CO2 30 mmol/L (21-32); CREATININE 0.3 mg/dL (0.55-1.02); GLUCOSE,RANDOM 105 mg/dL (74-106); POTASSIUM 3.4 mmol/L (3.5-5.1); SGOT/AST 25 U/L (15-37); SGPT/ALT 36 U/L (13-61); SODIUM 140 mmol/L (136-145); TOT PROT 5.3 g/dl (6.4-8.2)
[2018-04-15 08:52] LABS: ALK PHOS 69 U/L (45-117)
--- NOTE | 2018-04-15 09:17 | PN ---
Progress Note, Physician Chief Complaint: Pt, A&Ox3; - Current Medication List Current Medications: Active Medications Acetaminophen (Tylenol -) 650 mg PO Q6H PRN PRN Reason: FEVER Last Admin: 04/15/18 01:02 Dose: 650 mg Acetylcysteine (Mucomyst 20 Oral / Inh Use Only*) 200 mg NEB Q4HWA [facility]Z Last Admin: 04/15/18 06:44 Dose: 200 mg Albuterol Sulfate (Ventolin 0.083% Nebulizer Soln -) 1 amp NEB Q4HWA [facility] Last Admin: 04/15/18 06:44 Dose: 1 amp Amino Acids (Prosource No Carb Liquid Pkt) 30 ml GT TID [facility] Last Admin: 04/15/18 06:18 Dose: 30 ml Budesonide/Formoterol Fumarate (Symbicort 160/4.5mcg -) 2 puff IH BID [facility] Last Admin: 04/14/18 21:57 Dose: 2 puff Clonazepam (Klonopin -) 0.25 mg GT Q6HPO PRN PRN Reason: ANXIETY Last Admin: 04/15/18 05:04 Dose: 0.25 mg Emtricitabine/Tenofovir (Truvada) 1 tab PO DAILY [facility] Last Admin: 04/14/18 10:02 Dose: 1 tab Etravirine (Intelence -) 100 mg PO BIDPC [facility] Last Admin: 04/14/18 17:33 Dose: 100 mg Fluticasone Propionate (Flonase -) 1 spray NS DAILY [facility] Last Admin: 04/14/18 10:04 Dose: 1 spray Gabapentin (Neurontin Oral Liquid -) 250 mg PEG BID [facility] Last Admin: 04/14/18 21:50 Dose: 250 mg Heparin Sodium (Porcine) (Heparin -) 5,000 unit SQ TID [facility] Last Admin: 04/15/18 06:18 Dose: 5,000 unit Famotidine/Sodium Chloride (Pepcid 20 Mg Premixed Ivpb -) 20 mg in 50 mls @ 100 mls/hr IVPB BID [facility] Last Admin: 04/14/18 21:55 Dose: 100 mls/hr Piperacillin Sod/Tazobactam (Sod 3.375 gm/ Dextrose) 50 mls @ 100 mls/hr IVPB Q8H-IV [facility]Z; Protocol Last Admin: 04/15/18 01:04 Dose: 100 mls/hr Sodium Chloride (Normal Saline -) 1,000 mls @ 75 mls/hr IV ASDIR [facility] Last Admin: 04/14/18 19:09 Dose: 75 mls/hr Lactobacillus Acidophilus (Bacid -) 1 tab PO DAILY [facility] Last Admin: 04/14/18 10:01 Dose: 1 tab Methylprednisolone Sodium Succinate (Solu-Medrol -) 20 mg IVPUSH BID [facility] Last Admin: 04/14/18 21:55 Dose: 20 mg Mirtazapine (Remeron -) 15 mg PEG HS [facility] Last Admin: 04/14/18 21:48 Dose: 15 mg Ondansetron HCl (Zofran Injection) 4 mg IVPUSH Q6H PRN PRN Reason: NAUSEA AND/OR VOMITING Raltegravir (Isentress -) 400 mg NR BID [facility] Last Admin: 04/14/18 22:22 Dose: 400 mg Sertraline HCl (Zoloft -) 50 mg PO DAILY [facility] Last Admin: 04/14/18 10:01 Dose: 50 mg Tramadol HCl (Ultram -) 50 mg PO Q6H PRN PRN Reason: PAIN LEVEL 4 - 6 Last Admin: 04/15/18 01:56 Dose: 50 mg Zolpidem Tartrate (Ambien -) 5 mg PO HS PRN PRN Reason: INSOMNIA Last Admin: 04/14/18 22:22 Dose: 5 mg - Objective Vital Signs: Vital Signs Temperature 100.7 F H 04/15/18 06:33 Pulse Rate 92 H 04/15/18 06:33 Respiratory Rate 22 04/15/18 06:33 Blood Pressure 122/74 04/15/18 06:33 O2 Sat by Pulse Oximetry (%) 96 04/14/18 21:00 Labs: CBC, BMP 04/15/18 08:00 04/15/18 08:00 INR, PTT INR 1.02 (0.83-1.09) 04/09/18 09:27 Problem List - Problems (1) Acute on chronic respiratory failure with hypoxia and hypercapnia Code(s): J96.21 - ACUTE AND CHRONIC RESPIRATORY FAILURE WITH HYPOXIA; J96.22 - ACUTE AND CHRONIC RESPIRATORY FAILURE WITH HYPERCAPNIA (2) Laryngeal carcinoma Code(s): C32.9 - MALIGNANT NEOPLASM OF LARYNX, UNSPECIFIED (3) AIDS Code(s): B20 - HUMAN IMMUNODEFICIENCY VIRUS [HIV] DISEASE (4) Tobacco dependence Code(s): F17.200 - NICOTINE DEPENDENCE, UNSPECIFIED, UNCOMPLICATED (5) Tracheostomy dependence Code(s): Z93.0 - TRACHEOSTOMY STATUS (6) Atypical chest pain Code(s): R07.89 - OTHER CHEST PAIN (7) Acute on chronic diastolic CHF (congestive heart failure) Code(s): I50.33 - ACUTE ON CHRONIC DIASTOLIC (CONGESTIVE) HEART FAILURE (8) Pericardial effusion Code(s): I31.3 - PERICARDIAL EFFUSION (NONINFLAMMATORY)
[2018-04-15] MEDS: ETRAVIRINE 100 MG TABLET PO SCH ×2 (09:33→18:45)
[2018-04-15] MEDS: POTASSIUM CHLORIDE TABS 20 MEQ TABLET.ER (FP) PO SCH ×2 (09:34→15:46)
[2018-04-15] MEDS: BUDESONIDE/FORMETEROL FUMARATE 160/4.5 mcg INHALER IH SCH ×2 (10:00→22:08)
[2018-04-15] MEDS: FLUTICASONE PROP 0.05% 16 GM NASAL SPRAY NS SCH (10:05)
[2018-04-15] MEDS ORDERED: PT OWN MED DRAWER 7, Y5N ONE (10:17)
[2018-04-15] MEDS: LACTOBACILLUS ACIDOPHILUS 1 TABLET PO SCH (10:35)
[2018-04-15] MEDS: RALTEGRAVIR POTASSIUM 400 MG TAB NR SCH ×2 (10:36→22:07)
[2018-04-15] MEDS: GABAPENTIN 250 MG/5 ML ORAL SOLUTION, 470 ML BOTTLE PEG SCH ×2 (10:36→22:06)
[2018-04-15] MEDS: FAMOTIDINE 20 MG/50 ML IVPB 20 MG/50 ML MG IVPB SCH ×2 (10:37→22:02)
[2018-04-15] MEDS: methylPREDNISolone NA SUCC 40 MG/1 ML VIAL IVPUSH SCH ×2 (10:38→22:02)
[2018-04-15] MEDS: SERTRALINE HCL 50 MG TABLET (FP) PO SCH (10:39)
[2018-04-15] MEDS: EMTRICITABINE 200MG/TENOFOVIR 300MG PO SCH (10:39)
[2018-04-15 10:59] LABS: ANISOCYTOSIS 1+; MACROCYTOSIS 1+; PLATELET ESTIMATE NORMAL
[2018-04-15] MEDS ORDERED: IBUPROFEN 600 MG TABLET (FP) PO PRN (12:02)
--- NOTE | 2018-04-15 14:35 | PN ---
Physical Exam: SUBJECTIVE: Patient seen and examined. In better spirits today. Says her lungs "feel looser." OBJECTIVE: Vital Signs Period Temp Pulse Resp BP Sys/Lisa Pulse Ox Last 24 Hr 99.9 F-101.2 F 81-107 22-22 100-122/64-86 95-96 GENERAL: The patient is awake, alert, and fully oriented. Thin, frail, cachectic , temporal wasting, protruding clavicles LUNGS: Trach/trach collar, uses passy casey valve; wheezing resolved; diffuse rhonchi HEART: Regular rate and rhythm, S1, S2 ABDOMEN: Soft, nontender, nondistended EXTREMITIES: 2+ pulses, warm, well-perfused, no edema. NEUROLOGICAL: Cranial nerves II through XII grossly intact. Normal speech, gait not observed. Laboratory Results - last 24 hr 04/15/18 04/15/18 08:00 08:00 WBC 10.0 RBC 2.88 L Hgb 9.4 L Hct 28.3 L MCV 98.2 H MCH 32.6 MCHC 33.2 RDW 14.6 Plt Count 286 MPV 8.9 Absolute Neuts (auto) 7.8 Neutrophils % 77.7 Neutrophils % (Manual) 73.7 Band Neutrophils % 4.0 Lymphocytes % 16.6 D Lymphocytes % (Manual) 14.2 D Monocytes % 5.3 Monocytes % (Manual) 5 Eosinophils % 0.1 Eosinophils % (Manual) 0.0 Basophils % 0.3 Basophils % (Manual) 0.0 Myelocytes % (Man) 2 D Promyelocytes % (Man) 0 Blast Cells % (Manual) 0 Nucleated RBC % 0 Metamyelocytes 1 D Hypochromia 0 Platelet Estimate Normal Polychromasia 0 Poikilocytosis 0 Anisocytosis 1+ Microcytosis 0 Macrocytosis 1+ Sodium 140 Potassium 3.4 L Chloride 103 Carbon Dioxide 30 Anion Gap 7 L BUN 25 H Creatinine 0.3 L Creat Clearance w eGFR > 60 Random Glucose 105 Calcium 8.1 L Magnesium 2.0 Total Bilirubin 0.2 AST 25 ALT 36 Alkaline Phosphatase 69 Total Protein 5.3 L Albumin 1.9 L Active Medications Generic Name Dose Route Start Last Admin Trade Name Freq PRN Reason Stop Dose Admin Acetaminophen 650 mg 04/03/18 15:41 04/15/18 13:51 Tylenol - PO 650 mg Q6H PRN Administration FEVER Acetylcysteine 200 mg 04/03/18 10:30 04/15/18 13:50 Mucomyst 20 Oral / Inh Use Only* NEB 200 mg Q4HWA RAZ Administration Albuterol Sulfate 1 amp 04/03/18 10:30 04/15/18 13:50 Ventolin 0.083% Nebulizer Soln - NEB 1 amp Q4HWA RAZ Administration Amino Acids 30 ml 04/13/18 14:45 04/15/18 13:54 Prosource No Carb Liquid Pkt GT 30 ml TID [facility]Z Administration Budesonide/Formoterol Fumarate 2 puff 04/03/18 22:00 04/15/18 10:00 Symbicort 160/4.5mcg - IH 2 puff BID [facility]Z Administration Clonazepam 0.25 mg 04/09/18 07:18 04/15/18 11:00 Klonopin - GT 0.25 mg Q6HPO PRN Administration ANXIETY Emtricitabine/Tenofovir 1 tab 04/04/18 10:00 04/15/18 10:39 Truvada PO 1 tab DAILY [facility]Z Administration Etravirine 100 mg 04/03/18 18:30 04/15/18 09:33 Intelence - PO 100 mg BIDPC RAZ Administration Fluticasone Propionate 1 spray 04/04/18 10:00 04/15/18 10:05 Flonase - NS 1 spray DAILY [facility] Administration Gabapentin 250 mg 04/03/18 22:00 04/15/18 10:36 Neurontin Oral Liquid - PEG 250 mg BID [facility]Z Administration Heparin Sodium (Porcine) 5,000 unit 04/03/18 22:00 04/15/18 06:18 Heparin - SQ 5,000 unit TID [facility]Z Administration Famotidine/Sodium Chloride 20 mg in 50 mls @ 100 mls/hr 04/03/18 22:00 10:37 Pepcid 20 Mg Premixed Ivpb - IVPB 100 mls/hr BID [facility] Administration Piperacillin Sod/Tazobactam 50 mls @ 100 mls/hr 04/11/18 12:45 04/15/18 10:40 Sod 3.375 gm/ Dextrose IVPB 100 mls/hr Q8H-IV RAZ Administration Protocol Sodium Chloride 1,000 mls @ 75 mls/hr 04/13/18 18:15 04/14/18 19:09 Normal Saline - IV 75 mls/hr ASDIR [facility]Z Administration Ibuprofen 600 mg 04/15/18 12:02 04/15/18 12:05 Motrin - PO 600 mg Q8H PRN Administration FEVER Lactobacillus Acidophilus 1 tab 04/03/18 10:45 04/15/18 10:35 Bacid - PO 1 tab DAILY [facility] Administration Methylprednisolone Sodium Succinate 20 mg 04/11/18 22:00 04/15/18 10:38 Solu-Medrol - IVPUSH 20 mg BID [facility] Administration Mirtazapine 15 mg 04/03/18 22:00 04/14/18 21:48 Remeron - PEG 15 mg HS RAZ Administration Ondansetron HCl 4 mg 04/11/18 19:55 Zofran Injection IVPUSH Q6H PRN NAUSEA AND/OR VOMITING Potassium Chloride 40 meq 04/15/18 09:30 04/15/18 09:34 K-Dur - PO 04/15/18 15:31 40 meq Q6H [facility]Z Administration Raltegravir 400 mg 04/03/18 22:00 04/15/18 10:36 Isentress - NR 400 mg BID RAZ Administration Sertraline HCl 50 mg 04/04/18 10:00 04/15/18 10:39 Zoloft - PO 50 mg DAILY [facility]Z Administration Tramadol HCl 50 mg 04/03/18 12:02 04/15/18 10:42 Ultram - PO 50 mg Q6H PRN Administration PAIN LEVEL 4 - 6 Zolpidem Tartrate 5 mg 04/04/18 12:17 04/14/18 22:22 Ambien - PO 5 mg HS PRN Administration INSOMNIA ASSESSMENT/PLAN 47 year-old female with a PMH significant for HIV/AIDS, laryngeal cancer s/p trach and PEG, HBV, and failure to thrive. Admitted for sepsis secondary to bilateral pneumonia. 47 year-old female with a PMH significant for HIV/AIDS, laryngeal cancer s/p trach and PEG, HBV, and failure to thrive. Admitted for sepsis secondary to bilateral pneumonia. Sepsis secondary to bilateral pneumonia Bilateral pleural effusions --spiking fevers x 3 days, Tm 101, WBC close to wnl --continue Zosyn (day #4) Klebsiella bacteremia --treated with cefazolin (04/03-->04/11) --03/30 and 04/03 blood cultures negative --04/09 and 04/11 blood cultures NGTD C. diff --antigen positive, toxin negative --will defer to ID whether to start PO vanc HIV/AIDS --CD4 311 --continue HAART Laryngeal cancer --no acute issues Hep B --no acute issues Failure to thrive Severe malnutrition FEN Fluids/nutrition: tube feeds via gravity Electrolytes: replete as indicated DVT prophylaxis: subq heparin Physical therapy Dispo: continues to require inpatient care. Full code. Visit type - Emergency Visit Emergency Visit: Yes ED Registration Date: 03/28/18 Care time: The patient presented to the Emergency Department on the above date and was hospitalized for further evaluation of their emergent condition. - New Patient This patient is new to me today: No - Critical Care Critical Care patient: No
--- NOTE | 2018-04-15 14:35 | PN ---
Physical Exam: SUBJECTIVE: Patient seen and examined. Feels feverish and weak. OBJECTIVE: Vital Signs Period Temp Pulse Resp BP Sys/Lisa Pulse Ox Last 24 Hr 99.9 F-101.2 F 81-107 22-22 100-122/64-86 95-96 GENERAL: The patient is awake, alert, and fully oriented. Diaphoretic, ill- appearing. LUNGS: Trach/trach collar, uses passy casey valve; rhonchorous breath sounds throughout HEART: Regular rate and rhythm, S1, S2 ABDOMEN: Soft, nontender, nondistended EXTREMITIES: 2+ pulses, warm, well-perfused, no edema. NEUROLOGICAL: Cranial nerves II through XII grossly intact. Normal speech, gait not observed. Laboratory Results - last 24 hr 04/15/18 04/15/18 08:00 08:00 WBC 10.0 RBC 2.88 L Hgb 9.4 L Hct 28.3 L MCV 98.2 H MCH 32.6 MCHC 33.2 RDW 14.6 Plt Count 286 MPV 8.9 Absolute Neuts (auto) 7.8 Neutrophils % 77.7 Neutrophils % (Manual) 73.7 Band Neutrophils % 4.0 Lymphocytes % 16.6 D Lymphocytes % (Manual) 14.2 D Monocytes % 5.3 Monocytes % (Manual) 5 Eosinophils % 0.1 Eosinophils % (Manual) 0.0 Basophils % 0.3 Basophils % (Manual) 0.0 Myelocytes % (Man) 2 D Promyelocytes % (Man) 0 Blast Cells % (Manual) 0 Nucleated RBC % 0 Metamyelocytes 1 D Hypochromia 0 Platelet Estimate Normal Polychromasia 0 Poikilocytosis 0 Anisocytosis 1+ Microcytosis 0 Macrocytosis 1+ Sodium 140 Potassium 3.4 L Chloride 103 Carbon Dioxide 30 Anion Gap 7 L BUN 25 H Creatinine 0.3 L Creat Clearance w eGFR > 60 Random Glucose 105 Calcium 8.1 L Magnesium 2.0 Total Bilirubin 0.2 AST 25 ALT 36 Alkaline Phosphatase 69 Total Protein 5.3 L Albumin 1.9 L Active Medications Generic Name Dose Route Start Last Admin Trade Name Freq PRN Reason Stop Dose Admin Acetaminophen 650 mg 04/03/18 15:41 04/15/18 13:51 Tylenol - PO 650 mg Q6H PRN Administration FEVER Acetylcysteine 200 mg 04/03/18 10:30 04/15/18 13:50 Mucomyst 20 Oral / Inh Use Only* NEB 200 mg Q4HWA RAZ Administration Albuterol Sulfate 1 amp 04/03/18 10:30 04/15/18 13:50 Ventolin 0.083% Nebulizer Soln - NEB 1 amp Q4HWA RAZ Administration Amino Acids 30 ml 04/13/18 14:45 04/15/18 13:54 Prosource No Carb Liquid Pkt GT 30 ml TID [facility]Z Administration Budesonide/Formoterol Fumarate 2 puff 04/03/18 22:00 04/15/18 10:00 Symbicort 160/4.5mcg - IH 2 puff BID [facility]Z Administration Clonazepam 0.25 mg 04/09/18 07:18 04/15/18 11:00 Klonopin - GT 0.25 mg Q6HPO PRN Administration ANXIETY Emtricitabine/Tenofovir 1 tab 04/04/18 10:00 04/15/18 10:39 Truvada PO 1 tab DAILY [facility]Z Administration Etravirine 100 mg 04/03/18 18:30 04/15/18 09:33 Intelence - PO 100 mg BIDPC RAZ Administration Fluticasone Propionate 1 spray 04/04/18 10:00 04/15/18 10:05 Flonase - NS 1 spray DAILY [facility] Administration Gabapentin 250 mg 04/03/18 22:00 04/15/18 10:36 Neurontin Oral Liquid - PEG 250 mg BID [facility]Z Administration Heparin Sodium (Porcine) 5,000 unit 04/03/18 22:00 04/15/18 06:18 Heparin - SQ 5,000 unit TID [facility]Z Administration Famotidine/Sodium Chloride 20 mg in 50 mls @ 100 mls/hr 04/03/18 22:00 10:37 Pepcid 20 Mg Premixed Ivpb - IVPB 100 mls/hr BID [facility] Administration Piperacillin Sod/Tazobactam 50 mls @ 100 mls/hr 04/11/18 12:45 04/15/18 10:40 Sod 3.375 gm/ Dextrose IVPB 100 mls/hr Q8H-IV RAZ Administration Protocol Sodium Chloride 1,000 mls @ 75 mls/hr 04/13/18 18:15 04/14/18 19:09 Normal Saline - IV 75 mls/hr ASDIR [facility]Z Administration Ibuprofen 600 mg 04/15/18 12:02 04/15/18 12:05 Motrin - PO 600 mg Q8H PRN Administration FEVER Lactobacillus Acidophilus 1 tab 04/03/18 10:45 04/15/18 10:35 Bacid - PO 1 tab DAILY [facility] Administration Methylprednisolone Sodium Succinate 20 mg 04/11/18 22:00 04/15/18 10:38 Solu-Medrol - IVPUSH 20 mg BID [facility]Z Administration Mirtazapine 15 mg 04/03/18 22:00 04/14/18 21:48 Remeron - PEG 15 mg HS RAZ Administration Ondansetron HCl 4 mg 04/11/18 19:55 Zofran Injection IVPUSH Q6H PRN NAUSEA AND/OR VOMITING Potassium Chloride 40 meq 04/15/18 09:30 04/15/18 09:34 K-Dur - PO 04/15/18 15:31 40 meq Q6H RAZ Administration Raltegravir 400 mg 04/03/18 22:00 04/15/18 10:36 Isentress - NR 400 mg BID RAZ Administration Sertraline HCl 50 mg 04/04/18 10:00 04/15/18 10:39 Zoloft - PO 50 mg DAILY [facility]Z Administration Tramadol HCl 50 mg 04/03/18 12:02 04/15/18 10:42 Ultram - PO 50 mg Q6H PRN Administration PAIN LEVEL 4 - 6 Zolpidem Tartrate 5 mg 04/04/18 12:17 04/14/18 22:22 Ambien - PO 5 mg HS PRN Administration INSOMNIA ASSESSMENT/PLAN: 47 year-old female with a PMH significant for HIV/AIDS, laryngeal cancer s/p trach and PEG, HBV, and failure to thrive. Admitted for sepsis secondary to bilateral pneumonia. Sepsis secondary to bilateral pneumonia Bilateral pleural effusions --spiking fevers x 4 days, Tm 101.2, but leukocytosis has trended down to wnl --diaphoretic and ill-appearing today --NS x 500mL bolus, continue NS @75mL/hr --IV motrin for fever --continue Zosyn (day #5) Klebsiella bacteremia --treated with cefazolin (04/03-->04/11) --03/30 and 04/03 blood cultures negative --04/09 and 9/9 blood cultures NGTD C. diff --antigen positive, toxin negative --PO vanc HIV/AIDS --CD4 311 --continue HAART Laryngeal cancer --no acute issues Hep B --no acute issues Failure to thrive Severe malnutrition --tube feeds via gravity FEN Fluids/nutrition: tube feeds via gravity Electrolytes: replete as indicated DVT prophylaxis: subq heparin Physical therapy Dispo: continues to require inpatient care. Full code. Visit type - Emergency Visit Emergency Visit: Yes ED Registration Date: 03/28/18 Care time: The patient presented to the Emergency Department on the above date and was hospitalized for further evaluation of their emergent condition. - New Patient This patient is new to me today: No - Critical Care Critical Care patient: No
--- NOTE | 2018-04-15 14:46 | PN ---
Progress Note (short form) - Note Progress Note: PULMONARY Febrile overnight and diarrhea. C diff Ag positive. Vital Signs Period Temp Pulse Resp BP Sys/Lisa Pulse Ox Last 24 Hr 99.9 F-101.2 F 81-107 22-22 100-122/64-86 95-96 Gen: less tachypneic Heart: RRR Lung: scattered basilar rales Abd: soft, nontender Ext: no edema CBC, BMP 04/15/18 08:00 04/15/18 08:00 Active Medications Acetaminophen (Tylenol -) 650 mg PO Q6H PRN PRN Reason: FEVER Last Admin: 04/15/18 13:51 Dose: 650 mg Acetylcysteine (Mucomyst 20 Oral / Inh Use Only*) 200 mg NEB Q4HWA [facility] Last Admin: 04/15/18 13:50 Dose: 200 mg Albuterol Sulfate (Ventolin 0.083% Nebulizer Soln -) 1 amp NEB Q4HWA RAZ Last Admin: 04/15/18 13:50 Dose: 1 amp Amino Acids (Prosource No Carb Liquid Pkt) 30 ml GT TID [facility] Last Admin: 04/15/18 13:54 Dose: 30 ml Budesonide/Formoterol Fumarate (Symbicort 160/4.5mcg -) 2 puff IH BID [facility] Last Admin: 04/15/18 10:00 Dose: 2 puff Clonazepam (Klonopin -) 0.25 mg GT Q6HPO PRN PRN Reason: ANXIETY Last Admin: 04/15/18 11:00 Dose: 0.25 mg Emtricitabine/Tenofovir (Truvada) 1 tab PO DAILY [facility] Last Admin: 04/15/18 10:39 Dose: 1 tab Etravirine (Intelence -) 100 mg PO BIDPC [facility] Last Admin: 04/15/18 09:33 Dose: 100 mg Fluticasone Propionate (Flonase -) 1 spray NS DAILY [facility] Last Admin: 04/15/18 10:05 Dose: 1 spray Gabapentin (Neurontin Oral Liquid -) 250 mg PEG BID [facility] Last Admin: 04/15/18 10:36 Dose: 250 mg Heparin Sodium (Porcine) (Heparin -) 5,000 unit SQ TID [facility] Last Admin: 04/15/18 06:18 Dose: 5,000 unit Famotidine/Sodium Chloride (Pepcid 20 Mg Premixed Ivpb -) 20 mg in 50 mls @ 100 mls/hr IVPB BID [facility] Last Admin: 04/15/18 10:37 Dose: 100 mls/hr Piperacillin Sod/Tazobactam (Sod 3.375 gm/ Dextrose) 50 mls @ 100 mls/hr IVPB Q8H-IV RAZ; Protocol Last Admin: 04/15/18 10:40 Dose: 100 mls/hr Sodium Chloride (Normal Saline -) 1,000 mls @ 75 mls/hr IV ASDIR [facility] Last Admin: 04/14/18 19:09 Dose: 75 mls/hr Ibuprofen (Motrin -) 600 mg PO Q8H PRN PRN Reason: FEVER Last Admin: 04/15/18 12:05 Dose: 600 mg Lactobacillus Acidophilus (Bacid -) 1 tab PO DAILY [facility] Last Admin: 04/15/18 10:35 Dose: 1 tab Methylprednisolone Sodium Succinate (Solu-Medrol -) 20 mg IVPUSH BID [facility] Last Admin: 04/15/18 10:38 Dose: 20 mg Mirtazapine (Remeron -) 15 mg PEG HS [facility] Last Admin: 04/14/18 21:48 Dose: 15 mg Ondansetron HCl (Zofran Injection) 4 mg IVPUSH Q6H PRN PRN Reason: NAUSEA AND/OR VOMITING Potassium Chloride (K-Dur -) 40 meq PO Q6H [facility] Stop: 04/15/18 15:31 Last Admin: 04/15/18 09:34 Dose: 40 meq Raltegravir (Isentress -) 400 mg NR BID [facility] Last Admin: 04/15/18 10:36 Dose: 400 mg Sertraline HCl (Zoloft -) 50 mg PO DAILY [facility] Last Admin: 04/15/18 10:39 Dose: 50 mg Tramadol HCl (Ultram -) 50 mg PO Q6H PRN PRN Reason: PAIN LEVEL 4 - 6 Last Admin: 04/15/18 10:42 Dose: 50 mg Zolpidem Tartrate (Ambien -) 5 mg PO HS PRN PRN Reason: INSOMNIA Last Admin: 04/14/18 22:22 Dose: 5 mg A/P Acute on Chronic Hypoxic Respiratory Failure improving Pneumonia ARDS resolving Klebsiella Bacteremia Sepsis HIV/AIDS h/o Laryngeal Ca s/p trach/PEG - continue antibiotics per ID - f/u repeat cultures - continue bacid - inhaled bronchodilators with mucomyst - pain control - chest PT/bed percussion - taper Fio2 to keep SpO2 >90% - continue ART - DVT prophylaxis
[2018-04-15] MEDS ORDERED: SODIUM CHLORIDE 500 ML IV STA (16:41)
[2018-04-15] MEDS: IBUPROFEN 800 MG/8 ML IJ IVPB PRN (17:36)
--- NOTE | 2018-04-15 17:43 | PN ---
Progress Note, Physician History of Present Illness: Awake, alert Remains febrile Reports loose BMs C diff ag+ Breathing non-labored Repeat BC (-) CT chest extensive pneumonia - Current Medication List Current Medications: Active Medications Acetaminophen (Tylenol -) 650 mg PO Q6H PRN PRN Reason: FEVER Last Admin: 04/15/18 13:51 Dose: 650 mg Acetylcysteine (Mucomyst 20 Oral / Inh Use Only*) 200 mg NEB Q4HWA [facility] Last Admin: 04/15/18 13:50 Dose: 200 mg Albuterol Sulfate (Ventolin 0.083% Nebulizer Soln -) 1 amp NEB Q4HWA [facility] Last Admin: 04/15/18 13:50 Dose: 1 amp Amino Acids (Prosource No Carb Liquid Pkt) 30 ml GT TID [facility] Last Admin: 04/15/18 13:54 Dose: 30 ml Budesonide/Formoterol Fumarate (Symbicort 160/4.5mcg -) 2 puff IH BID [facility] Last Admin: 04/15/18 10:00 Dose: 2 puff Clonazepam (Klonopin -) 0.25 mg GT Q6HPO PRN PRN Reason: ANXIETY Last Admin: 04/15/18 11:00 Dose: 0.25 mg Emtricitabine/Tenofovir (Truvada) 1 tab PO DAILY [facility] Last Admin: 04/15/18 10:39 Dose: 1 tab Etravirine (Intelence -) 100 mg PO BIDPC [facility] Last Admin: 04/15/18 09:33 Dose: 100 mg Fluticasone Propionate (Flonase -) 1 spray NS DAILY [facility] Last Admin: 04/15/18 10:05 Dose: 1 spray Gabapentin (Neurontin Oral Liquid -) 250 mg PEG BID [facility] Last Admin: 04/15/18 10:36 Dose: 250 mg Heparin Sodium (Porcine) (Heparin -) 5,000 unit SQ TID [facility] Last Admin: 04/15/18 15:45 Dose: 5,000 unit Famotidine/Sodium Chloride (Pepcid 20 Mg Premixed Ivpb -) 20 mg in 50 mls @ 100 mls/hr IVPB BID [facility] Last Admin: 04/15/18 10:37 Dose: 100 mls/hr Piperacillin Sod/Tazobactam (Sod 3.375 gm/ Dextrose) 50 mls @ 100 mls/hr IVPB Q8H-IV RAZ; Protocol Last Admin: 04/15/18 10:40 Dose: 100 mls/hr Sodium Chloride (Normal Saline -) 1,000 mls @ 75 mls/hr IV ASDIR [facility] Last Admin: 04/14/18 19:09 Dose: 75 mls/hr Ibuprofen (Caldolor Injection -) 600 mg IVPB Q6H PRN PRN Reason: PAIN LEVEL 1 - 3 Lactobacillus Acidophilus (Bacid -) 1 tab PO DAILY [facility] Last Admin: 04/15/18 10:35 Dose: 1 tab Methylprednisolone Sodium Succinate (Solu-Medrol -) 20 mg IVPUSH BID [facility] Last Admin: 04/15/18 10:38 Dose: 20 mg Mirtazapine (Remeron -) 15 mg PEG HS [facility] Last Admin: 04/14/18 21:48 Dose: 15 mg Ondansetron HCl (Zofran Injection) 4 mg IVPUSH Q6H PRN PRN Reason: NAUSEA AND/OR VOMITING Raltegravir (Isentress -) 400 mg NR BID [facility] Last Admin: 04/15/18 10:36 Dose: 400 mg Sertraline HCl (Zoloft -) 50 mg PO DAILY [facility] Last Admin: 04/15/18 10:39 Dose: 50 mg Tramadol HCl (Ultram -) 50 mg PO Q6H PRN PRN Reason: PAIN LEVEL 4 - 6 Last Admin: 04/15/18 10:42 Dose: 50 mg Zolpidem Tartrate (Ambien -) 5 mg PO HS PRN PRN Reason: INSOMNIA Last Admin: 04/14/18 22:22 Dose: 5 mg - Objective Vital Signs: Vital Signs Temperature 100.5 F H 04/15/18 11:00 Pulse Rate 81 04/15/18 11:00 Respiratory Rate 22 04/15/18 14:00 Blood Pressure 118/86 04/15/18 14:00 O2 Sat by Pulse Oximetry (%) 95 04/15/18 09:00 Constitutional: Yes: No Distress, Cachectic Cardiovascular: Yes: Regular Rate and Rhythm, S1, S2 Respiratory: Yes: Rhonchi Gastrointestinal: Yes: Normal Bowel Sounds, Soft. No: Tenderness Edema: No Labs: CBC, BMP 04/15/18 08:00 04/15/18 08:00 INR, PTT INR 1.02 (0.83-1.09) 04/09/18 09:27 Assessment/Plan Fever ? C diff Bilateral Pneumonia Respiratory failure Klebsiella bacteremia AIDS Continue empiric zosyn Vancomycin po
[2018-04-15] MEDS: SODIUM CHLORIDE 1,000 ML IV SCH (18:00)
[2018-04-15] MEDS: VANCOMYCIN 250 MG/5 ML ORAL SOLUTION PO SCH (18:44)
[2018-04-15] MEDS: MIRTAZAPINE 15 MG TABLET (FP) PEG SCH (22:02)
[2018-04-16] MEDS: VANCOMYCIN 250 MG/5 ML ORAL SOLUTION PO SCH ×4 (00:10→17:14)
[2018-04-16] MEDS: traMADol HCL 50 MG TABLET PO PRN ×3 (00:11→17:15)
[2018-04-16] MEDS: ZOLPIDEM TARTRATE 5 MG TABLET PO PRN (00:11)
[2018-04-16] MEDS: clonazePAM 0.5 MG TABLET GT PRN ×2 (00:12→09:55)
[2018-04-16] MEDS ORDERED: PIPERACILLIN/TAZOBACTAM 3.375 GM VIAL IVPB ONE ×3 (01:37→17:10)
[2018-04-16] MEDS ORDERED: DEXTROSE 5%-WATER - 50 ML IVPB ONE ×3 (01:37→17:10)
[2018-04-16] MEDS: PIPERACILLIN/TAZOB 3.375 GM 3.375 GM in DEXTROSE 5%-WATER - 50 ML IVPB SCH ×3 (02:00→17:14)
[2018-04-16] MEDS: ALBUTEROL SO4 0.083% IH SOL 2.5 MG/3 ML VIAL.NEB. NEB SCH ×5 (05:50→22:35)
[2018-04-16] MEDS: ACETYLCYSTEINE 20% 200MG/ML 4 ML VIAL *FOR ORAL / INH USE ONLY NEB SCH ×5 (05:50→22:35)
[2018-04-16] MEDS: AMINO ACIDS/PROTEIN HYDROLYS 30 ML LIQUID.PKT GT SCH ×3 (05:59→21:53)
[2018-04-16] MEDS: HEPARIN NA (PORCINE) 5,000 UNITS/ML 1ML VIAL SQ SCH ×2 (06:00→14:20)
[2018-04-16] MEDS ORDERED: PT OWN MED DRAWER 7, Y5N ONE (08:53)
[2018-04-16] MEDS: ETRAVIRINE 100 MG TABLET PO SCH ×2 (09:46→17:30)
[2018-04-16] MEDS: LACTOBACILLUS ACIDOPHILUS 1 TABLET PO SCH (09:47)
[2018-04-16] MEDS: FLUTICASONE PROP 0.05% 16 GM NASAL SPRAY NS SCH (09:48)
[2018-04-16] MEDS: RALTEGRAVIR POTASSIUM 400 MG TAB NR SCH ×2 (09:49→21:54)
[2018-04-16] MEDS: GABAPENTIN 250 MG/5 ML ORAL SOLUTION, 470 ML BOTTLE PEG SCH ×2 (09:49→21:53)
[2018-04-16] MEDS: FAMOTIDINE 20 MG/50 ML IVPB 20 MG/50 ML MG IVPB SCH ×2 (09:51→21:53)
[2018-04-16] MEDS: methylPREDNISolone NA SUCC 40 MG/1 ML VIAL IVPUSH SCH ×2 (09:52→21:53)
[2018-04-16] MEDS: BUDESONIDE/FORMETEROL FUMARATE 160/4.5 mcg INHALER IH SCH ×2 (09:52→22:06)
[2018-04-16 09:53] LABS: ANION GAP 10 MMOL/L (8-16); BLOOD UREA NITROGEN 23 mg/dL (7-18); CALCIUM 8.5 mg/dL (8.5-10.1); CHLORIDE 103 mmol/L (98-107); CO2 29 mmol/L (21-32); CREATININE 0.3 mg/dL (0.55-1.3); GLUCOSE,RANDOM 93 mg/dL (74-106); MAGNESIUM 2.1 mg/dL (1.8-2.4); SODIUM 142 mmol/L (136-145)
[2018-04-16] MEDS: EMTRICITABINE 200MG/TENOFOVIR 300MG PO SCH (09:54)
[2018-04-16] MEDS: SERTRALINE HCL 50 MG TABLET (FP) PO SCH (09:55)
[2018-04-16 10:02] LABS: BASO % 0.1 % (0-2.0); HEMATOCRIT 30.9 % (32.4-45.2); LYMPH % 6.6 % (8-40); MCH 31.9 pg (25.7-33.7); MCHC 32.4 g/dl (32.0-36.0); MEAN CELL VOLUME 98.3 fl (80-96); MONO % 3.2 % (3.8-10.2); NEUT % 90.1 % (42.8-82.8); PLATELET COUNT 338 K/MM3 (134-434); RBC 3.15 M/mm3 (3.60-5.2); RDW 14.5 % (11.6-15.6); WHITE BLOOD COUNT 13.9 K/mm3 (4.0-10.0)
--- NOTE | 2018-04-16 10:43 | PATH ---
Cytology Non-Gynecological Report Patient Name: LILIYA GLEZ [facility]. Rec. #: [id number] /Age/Gender: 1970 (Age: 47) / F Account: [id number] Location: 4 W TELEMETRY U Taken: 04/09/2018 Received: 04/12/2018 Reported: 04/13/2018 Physicians: Laura Calles M.D. Specimen(s) Received RIGHT PLEURAL FLUID Clinical History Right pleural effusion Final Diagnosis PLEURAL FLUID, RIGHT, THORACENTESIS: SATISFACTORY FOR EVALUATION LYMPHOCYTIC PLEURAL EFFUSION. SMALL LYMPHOID POPULATION AND FEW MESOTHELIAL CELLS PRESENT. Electronically Signed Ck Morrison M.D. Gross Description Approximately 50cc of bloody fluid received fixed in 50% alcohol. One cytofunnel and one cellblock prepared.
[2018-04-16] MEDS: IBUPROFEN 800 MG/8 ML IJ IVPB PRN ×2 (11:07→19:04)
--- NOTE | 2018-04-16 11:14 | PN ---
Progress Note, Physician History of Present Illness: pulmonary alert,less congested,less dyspneic - Current Medication List Current Medications: Active Medications Acetaminophen (Tylenol -) 650 mg PO Q6H PRN PRN Reason: FEVER Last Admin: 04/15/18 13:51 Dose: 650 mg Acetylcysteine (Mucomyst 20 Oral / Inh Use Only*) 200 mg NEB Q4HWA RAZ Last Admin: 04/16/18 09:53 Dose: 200 mg Albuterol Sulfate (Ventolin 0.083% Nebulizer Soln -) 1 amp NEB Q4HWA [facility]Z Last Admin: 04/16/18 09:54 Dose: 1 amp Amino Acids (Prosource No Carb Liquid Pkt) 30 ml GT TID RAZ Last Admin: 04/16/18 05:59 Dose: 30 ml Budesonide/Formoterol Fumarate (Symbicort 160/4.5mcg -) 2 puff IH BID [facility] Last Admin: 04/16/18 09:52 Dose: 2 puff Clonazepam (Klonopin -) 0.25 mg GT Q6HPO PRN PRN Reason: ANXIETY Last Admin: 04/16/18 09:55 Dose: 0.25 mg Emtricitabine/Tenofovir (Truvada) 1 tab PO DAILY [facility] Last Admin: 04/16/18 09:54 Dose: 1 tab Etravirine (Intelence -) 100 mg PO BIDPC [facility] Last Admin: 04/16/18 09:46 Dose: 100 mg Fluticasone Propionate (Flonase -) 1 spray NS DAILY [facility] Last Admin: 04/16/18 09:48 Dose: 1 spray Gabapentin (Neurontin Oral Liquid -) 250 mg PEG BID [facility] Last Admin: 04/16/18 09:49 Dose: 250 mg Heparin Sodium (Porcine) (Heparin -) 5,000 unit SQ TID [facility]Z Last Admin: 04/16/18 06:00 Dose: 5,000 unit Famotidine/Sodium Chloride (Pepcid 20 Mg Premixed Ivpb -) 20 mg in 50 mls @ 100 mls/hr IVPB BID [facility]Z Last Admin: 04/16/18 09:51 Dose: 100 mls/hr Piperacillin Sod/Tazobactam (Sod 3.375 gm/ Dextrose) 50 mls @ 100 mls/hr IVPB Q8H-IV RAZ; Protocol Last Admin: 04/16/18 09:54 Dose: 100 mls/hr Sodium Chloride (Normal Saline -) 1,000 mls @ 75 mls/hr IV ASDIR [facility] Last Admin: 04/15/18 18:00 Dose: 75 mls/hr Ibuprofen (Caldolor Injection -) 600 mg IVPB Q6H PRN PRN Reason: PAIN LEVEL 1 - 3 Last Admin: 04/16/18 11:07 Dose: 600 mg Lactobacillus Acidophilus (Bacid -) 1 tab PO DAILY [facility] Last Admin: 04/16/18 09:47 Dose: 1 tab Methylprednisolone Sodium Succinate (Solu-Medrol -) 20 mg IVPUSH BID [facility] Last Admin: 04/16/18 09:52 Dose: 20 mg Mirtazapine (Remeron -) 15 mg PEG HS [facility] Last Admin: 04/15/18 22:02 Dose: 15 mg Ondansetron HCl (Zofran Injection) 4 mg IVPUSH Q6H PRN PRN Reason: NAUSEA AND/OR VOMITING Raltegravir (Isentress -) 400 mg NR BID [facility] Last Admin: 04/16/18 09:49 Dose: 400 mg Sertraline HCl (Zoloft -) 50 mg PO DAILY [facility] Last Admin: 04/16/18 09:55 Dose: 50 mg Tramadol HCl (Ultram -) 50 mg PO Q6H PRN PRN Reason: PAIN LEVEL 4 - 6 Last Admin: 04/16/18 06:00 Dose: 50 mg Vancomycin HCl (Vancomycin Oral Solution) 125 mg PO Q6HPO [facility] Last Admin: 04/16/18 05:59 Dose: 125 mg Zolpidem Tartrate (Ambien -) 5 mg PO HS PRN PRN Reason: INSOMNIA Last Admin: 04/16/18 00:11 Dose: 5 mg - Objective Vital Signs: Vital Signs Temperature 100 F H 04/16/18 05:00 Pulse Rate 95 H 04/16/18 05:00 Respiratory Rate 20 04/16/18 05:00 Blood Pressure 98/55 04/16/18 05:00 O2 Sat by Pulse Oximetry (%) 95 04/15/18 21:00 Constitutional: Yes: Calm, Thin Eyes: Yes: WNL HENT: Yes: WNL Neck: Yes: Supple (trach) Cardiovascular: Yes: Regular Rate and Rhythm, S1, S2 Respiratory: Yes: Rhonchi (scattered shania rhonchi) Gastrointestinal: Yes: Normal Bowel Sounds, Soft Extremities: Yes: WNL Edema: No Labs: CBC, BMP 04/16/18 09:04 04/16/18 09:04 INR, PTT INR 1.02 (0.83-1.09) 04/09/18 09:27 Problem List - Problems (1) Acute on chronic respiratory failure with hypoxia and hypercapnia Code(s): J96.21 - ACUTE AND CHRONIC RESPIRATORY FAILURE WITH HYPOXIA; J96.22 - ACUTE AND CHRONIC RESPIRATORY FAILURE WITH HYPERCAPNIA (2) Laryngeal carcinoma Code(s): C32.9 - MALIGNANT NEOPLASM OF LARYNX, UNSPECIFIED (3) Pneumonia Code(s): J18.9 - PNEUMONIA, UNSPECIFIED ORGANISM Qualifiers: Pneumonia type: due to unspecified organism Laterality: bilateral Lung location: unspecified part of lung Qualified Code(s): J18.9 - Pneumonia, unspecified organism (4) AIDS Code(s): B20 - HUMAN IMMUNODEFICIENCY VIRUS [HIV] DISEASE (5) Difficulty breathing Code(s): R06.89 - OTHER ABNORMALITIES OF BREATHING (6) HIV (human immunodeficiency virus infection) Code(s): Z21 - ASYMPTOMATIC HUMAN IMMUNODEFICIENCY VIRUS INFECTION STATUS (7) Head and neck cancer Code(s): C76.0 - MALIGNANT NEOPLASM OF HEAD, FACE AND NECK Assessment/Plan A/P Acute on Chronic Hypoxic Respiratory Failure improving Bilateral Pneumonia ARDS resolving Klebsiella Bacteremia Sepsis HIV/AIDS h/o Laryngeal Ca s/p trach/PEG Pleural effusion exudate likely uncomplicated parapneumonic effusion - antibiotics as per ID - continue bacid - inhaled bronchodilators with mucomyst - pain control - chest PT/bed percussion - taper Fio2 to keep SpO2 >90% - continue ART - DVT prophylaxis - steroids DR MAYER
[2018-04-16 11:47] LABS: PLATELET ESTIMATE ADEQUATE
--- NOTE | 2018-04-16 12:14 | PN ---
Progress Note, Physician - Current Medication List Current Medications: Active Medications Acetaminophen (Tylenol -) 650 mg PO Q6H PRN PRN Reason: FEVER Last Admin: 04/15/18 13:51 Dose: 650 mg Acetylcysteine (Mucomyst 20 Oral / Inh Use Only*) 200 mg NEB Q4HWA [facility] Last Admin: 04/16/18 09:53 Dose: 200 mg Albuterol Sulfate (Ventolin 0.083% Nebulizer Soln -) 1 amp NEB Q4HWA RAZ Last Admin: 04/16/18 09:54 Dose: 1 amp Amino Acids (Prosource No Carb Liquid Pkt) 30 ml GT TID [facility] Last Admin: 04/16/18 05:59 Dose: 30 ml Budesonide/Formoterol Fumarate (Symbicort 160/4.5mcg -) 2 puff IH BID [facility] Last Admin: 04/16/18 09:52 Dose: 2 puff Clonazepam (Klonopin -) 0.25 mg GT Q6HPO PRN PRN Reason: ANXIETY Last Admin: 04/16/18 09:55 Dose: 0.25 mg Emtricitabine/Tenofovir (Truvada) 1 tab PO DAILY [facility] Last Admin: 04/16/18 09:54 Dose: 1 tab Etravirine (Intelence -) 100 mg PO BIDPC [facility] Last Admin: 04/16/18 09:46 Dose: 100 mg Fluticasone Propionate (Flonase -) 1 spray NS DAILY [facility] Last Admin: 04/16/18 09:48 Dose: 1 spray Gabapentin (Neurontin Oral Liquid -) 250 mg PEG BID [facility] Last Admin: 04/16/18 09:49 Dose: 250 mg Heparin Sodium (Porcine) (Heparin -) 5,000 unit SQ TID [facility] Last Admin: 04/16/18 06:00 Dose: 5,000 unit Famotidine/Sodium Chloride (Pepcid 20 Mg Premixed Ivpb -) 20 mg in 50 mls @ 100 mls/hr IVPB BID [facility] Last Admin: 04/16/18 09:51 Dose: 100 mls/hr Piperacillin Sod/Tazobactam (Sod 3.375 gm/ Dextrose) 50 mls @ 100 mls/hr IVPB Q8H-IV [facility]Z; Protocol Last Admin: 04/16/18 09:54 Dose: 100 mls/hr Sodium Chloride (Normal Saline -) 1,000 mls @ 75 mls/hr IV ASDIR [facility] Last Admin: 04/15/18 18:00 Dose: 75 mls/hr Ibuprofen (Caldolor Injection -) 600 mg IVPB Q6H PRN PRN Reason: PAIN LEVEL 1 - 3 Last Admin: 04/16/18 11:07 Dose: 600 mg Lactobacillus Acidophilus (Bacid -) 1 tab PO DAILY [facility] Last Admin: 04/16/18 09:47 Dose: 1 tab Methylprednisolone Sodium Succinate (Solu-Medrol -) 20 mg IVPUSH BID [facility] Last Admin: 04/16/18 09:52 Dose: 20 mg Mirtazapine (Remeron -) 15 mg PEG HS [facility] Last Admin: 04/15/18 22:02 Dose: 15 mg Ondansetron HCl (Zofran Injection) 4 mg IVPUSH Q6H PRN PRN Reason: NAUSEA AND/OR VOMITING Raltegravir (Isentress -) 400 mg NR BID [facility] Last Admin: 04/16/18 09:49 Dose: 400 mg Sertraline HCl (Zoloft -) 50 mg PO DAILY [facility] Last Admin: 04/16/18 09:55 Dose: 50 mg Tramadol HCl (Ultram -) 50 mg PO Q6H PRN PRN Reason: PAIN LEVEL 4 - 6 Last Admin: 04/16/18 06:00 Dose: 50 mg Vancomycin HCl (Vancomycin Oral Solution) 125 mg PO Q6HPO [facility] Last Admin: 04/16/18 05:59 Dose: 125 mg Zolpidem Tartrate (Ambien -) 5 mg PO HS PRN PRN Reason: INSOMNIA Last Admin: 04/16/18 00:11 Dose: 5 mg - Objective Vital Signs: Vital Signs Temperature 100 F H 04/16/18 05:00 Pulse Rate 95 H 04/16/18 05:00 Respiratory Rate 20 04/16/18 05:00 Blood Pressure 98/55 04/16/18 05:00 O2 Sat by Pulse Oximetry (%) 95 04/15/18 21:00 Eyes: Yes: WNL, Conjunctiva Clear, EOM Intact HENT: Yes: WNL, Atraumatic, Normocephalic Neck: Yes: WNL, Supple, Trachea Midline Cardiovascular: Yes: WNL, Regular Rate and Rhythm Respiratory: Yes: Diminished Gastrointestinal: Yes: WNL, Normal Bowel Sounds Genitourinary: Yes: WNL Musculoskeletal: Yes: WNL Extremities: Yes: WNL Edema: No Integumentary: Yes: WNL Neurological: Yes: WNL, Alert, Oriented ...Motor Strength: WNL Psychiatric: Yes: WNL Labs: CBC, BMP 04/16/18 09:04 04/16/18 09:04 INR, PTT INR 1.02 (0.83-1.09) 04/09/18 09:27 Assessment/Plan - Problems (1) Acute on chronic respiratory failure with hypoxia and hypercapnia Code(s): J96.21 - ACUTE AND CHRONIC RESPIRATORY FAILURE WITH HYPOXIA; J96.22 - ACUTE AND CHRONIC RESPIRATORY FAILURE WITH HYPERCAPNIA (2) Laryngeal carcinoma Code(s): C32.9 - MALIGNANT NEOPLASM OF LARYNX, UNSPECIFIED (3) AIDS Code(s): B20 - HUMAN IMMUNODEFICIENCY VIRUS [HIV] DISEASE (4) Tobacco dependence Code(s): F17.200 - NICOTINE DEPENDENCE, UNSPECIFIED, UNCOMPLICATED (5) Tracheostomy dependence Code(s): Z93.0 - TRACHEOSTOMY STATUS (6) Atypical chest pain Code(s): R07.89 - OTHER CHEST PAIN (7) Acute on chronic diastolic CHF (congestive heart failure) Code(s): I50.33 - ACUTE ON CHRONIC DIASTOLIC (CONGESTIVE) HEART FAILURE (8) Pericardial effusion Code(s): I31.3 - PERICARDIAL EFFUSION (NONINFLAMMATORY)
[2018-04-16] MEDS: clonazePAM 0.5 MG TABLET PO PRN (16:29)
--- NOTE | 2018-04-16 18:21 | PN ---
Physical Exam: SUBJECTIVE: Patient seen and examined. OBJECTIVE: Vital Signs Period Temp Pulse Resp BP Sys/Lisa Pulse Ox Last 24 Hr 98.7 F-101 F 88-109 18-20 98-145/55-93 95-97 GENERAL: The patient is awake, alert, and fully oriented. LUNGS: Trach/trach collar, uses passy casey valve; rhonchorous breath sounds throughout HEART: Regular rate and rhythm, S1, S2 ABDOMEN: Soft, nontender, nondistended EXTREMITIES: 2+ pulses, warm, well-perfused, no edema. NEUROLOGICAL: Cranial nerves II through XII grossly intact. Normal speech, gait not observed. Laboratory Results - last 24 hr 04/16/18 04/16/18 09:04 09:04 WBC 13.9 H RBC 3.15 L Hgb 10.0 L Hct 30.9 L MCV 98.3 H MCH 31.9 MCHC 32.4 RDW 14.5 Plt Count 338 MPV 9.0 Absolute Neuts (auto) 12.5 H Total Counted 100 Neutrophils % 90.1 H Neutrophils % (Manual) 85.0 H Band Neutrophils % 4.0 Lymphocytes % 6.6 L D Lymphocytes % (Manual) 9.0 D Monocytes % 3.2 L Monocytes % (Manual) 2 L Eosinophils % 0.0 D Basophils % 0.1 Nucleated RBC % 0 Platelet Estimate Adequate Platelet Comment No clumping noted Sodium 142 Potassium 4.0 Chloride 103 Carbon Dioxide 29 Anion Gap 10 BUN 23 H Creatinine 0.3 L Creat Clearance w eGFR > 60 Random Glucose 93 Calcium 8.5 Magnesium 2.1 Active Medications Generic Name Dose Route Start Last Admin Trade Name Daviq PRN Reason Stop Dose Admin Acetaminophen 650 mg 04/03/18 15:41 04/15/18 13:51 Tylenol - PO 650 mg Q6H PRN Administration FEVER Acetylcysteine 200 mg 04/03/18 10:30 04/16/18 13:50 Mucomyst 20 Oral / Inh Use Only* NEB 200 mg Q4HWA RAZ Administration Albuterol Sulfate 1 amp 04/03/18 10:30 04/16/18 13:50 Ventolin 0.083% Nebulizer Soln - NEB 1 amp Q4HWA RAZ Administration Amino Acids 30 ml 04/13/18 14:45 04/16/18 14:20 Prosource No Carb Liquid Pkt GT 30 ml TID RAZ Administration Budesonide/Formoterol Fumarate 2 puff 04/03/18 22:00 04/16/18 09:52 Symbicort 160/4.5mcg - IH 2 puff BID RAZ Administration Clonazepam 0.25 mg 04/16/18 14:00 04/16/18 16:29 Klonopin - PO 0.25 mg Q6H PRN Administration ANXIETY Emtricitabine/Tenofovir 1 tab 04/04/18 10:00 04/16/18 09:54 Truvada PO 1 tab DAILY RAZ Administration Etravirine 100 mg 04/03/18 18:30 04/16/18 17:30 Intelence - PO 100 mg BIDPC RAZ Administration Fluticasone Propionate 1 spray 04/04/18 10:00 04/16/18 09:48 Flonase - NS 1 spray DAILY [facility]Z Administration Gabapentin 250 mg 04/03/18 22:00 04/16/18 09:49 Neurontin Oral Liquid - PEG 250 mg BID RAZ Administration Famotidine/Sodium Chloride 20 mg in 50 mls @ 100 mls/hr 04/03/18 22:00 09:51 Pepcid 20 Mg Premixed Ivpb - IVPB 100 mls/hr BID RAZ Administration Piperacillin Sod/Tazobactam 50 mls @ 100 mls/hr 04/11/18 12:45 04/16/18 17:14 Sod 3.375 gm/ Dextrose IVPB 100 mls/hr Q8H-IV RAZ Administration Protocol Sodium Chloride 1,000 mls @ 75 mls/hr 04/13/18 18:15 04/15/18 18:00 Normal Saline - IV 75 mls/hr ASDIR RAZ Administration Ibuprofen 600 mg 04/15/18 16:39 04/16/18 11:07 Caldolor Injection - IVPB 600 mg Q6H PRN Administration PAIN LEVEL 1 - 3 Lactobacillus Acidophilus 1 tab 04/03/18 10:45 04/16/18 09:47 Bacid - PO 1 tab DAILY [facility]Z Administration Methylprednisolone Sodium Succinate 20 mg 04/11/18 22:00 04/16/18 09:52 Solu-Medrol - IVPUSH 20 mg BID RAZ Administration Mirtazapine 15 mg 04/03/18 22:00 04/15/18 22:02 Remeron - PEG 15 mg HS RAZ Administration Ondansetron HCl 4 mg 04/11/18 19:55 Zofran Injection IVPUSH Q6H PRN NAUSEA AND/OR VOMITING Raltegravir 400 mg 04/03/18 22:00 04/16/18 09:49 Isentress - NR 400 mg BID RAZ Administration Sertraline HCl 50 mg 04/04/18 10:00 04/16/18 09:55 Zoloft - PO 50 mg DAILY [facility]Z Administration Tramadol HCl 50 mg 04/16/18 14:13 04/16/18 17:15 Ultram - PO 50 mg Q6H PRN Administration PAIN LEVEL 6-10 Vancomycin HCl 125 mg 04/15/18 18:00 04/16/18 17:14 Vancomycin Oral Solution PO 125 mg Q6HPO RAZ Administration ASSESSMENT/PLAN: 47 year-old female with a PMH significant for HIV/AIDS, laryngeal cancer s/p trach and PEG, HBV, and failure to thrive. Admitted for sepsis secondary to bilateral pneumonia. Sepsis secondary to bilateral pneumonia Bilateral pleural effusions --spiking fevers x 6 days, Tm 101, tachycardic to 109, WBC trending up, 10--> 13.9k, BP stable --IV motrin for fever --continue Zosyn (day #6) Klebsiella bacteremia --treated with cefazolin (04/03-->04/11) --03/30, 04/03, 04/09, 04/11 blood cultures negative C. diff --antigen positive, toxin negative --PO vanc (day #2) Chronic respiratory failure --trach collar @ 40% FiO2 HIV/AIDS --CD4 311 --continue HAART Laryngeal cancer --no acute issues Hep B --no acute issues Failure to thrive Severe malnutrition FEN Fluids/nutrition: tube feeds via PEG Electrolytes: replete as indicated DVT prophylaxis: subq heparin Physical therapy Dispo: continues to require inpatient care. Full code. Visit type - Emergency Visit Emergency Visit: Yes ED Registration Date: 03/28/18 Care time: The patient presented to the Emergency Department on the above date and was hospitalized for further evaluation of their emergent condition. - New Patient This patient is new to me today: No - Critical Care Critical Care patient: No
[2018-04-16] MEDS ORDERED: ZOLPIDEM TARTRATE 5 MG TABLET PO ONE (21:41)
[2018-04-16] MEDS: MIRTAZAPINE 15 MG TABLET (FP) PEG SCH (21:53)
[2018-04-17] MEDS: VANCOMYCIN 250 MG/5 ML ORAL SOLUTION PO SCH ×5 (00:56→23:04)
[2018-04-17] MEDS ORDERED: DEXTROSE 5%-WATER - 50 ML IVPB ONE ×2 (01:01→08:38)
[2018-04-17] MEDS ORDERED: PIPERACILLIN/TAZOBACTAM 3.375 GM VIAL IVPB ONE ×2 (01:01→08:38)
[2018-04-17] MEDS: PIPERACILLIN/TAZOB 3.375 GM 3.375 GM in DEXTROSE 5%-WATER - 50 ML IVPB SCH ×2 (01:47→09:44)
[2018-04-17] MEDS: clonazePAM 0.5 MG TABLET PO PRN ×2 (01:48→12:03)
[2018-04-17] MEDS: ALBUTEROL SO4 0.083% IH SOL 2.5 MG/3 ML VIAL.NEB. NEB SCH ×5 (04:15→22:15)
[2018-04-17] MEDS: ACETYLCYSTEINE 20% 200MG/ML 4 ML VIAL *FOR ORAL / INH USE ONLY NEB SCH ×6 (04:16→22:15)
[2018-04-17] MEDS: SODIUM CHLORIDE 1,000 ML IV SCH ×2 (07:12→20:13)
[2018-04-17] MEDS: AMINO ACIDS/PROTEIN HYDROLYS 30 ML LIQUID.PKT GT SCH ×3 (07:14→22:29)
--- NOTE | 2018-04-17 09:04 | PN ---
Progress Note, Physician - Current Medication List Current Medications: Active Medications Acetaminophen (Tylenol -) 650 mg PO Q6H PRN PRN Reason: FEVER Last Admin: 04/15/18 13:51 Dose: 650 mg Acetylcysteine (Mucomyst 20 Oral / Inh Use Only*) 200 mg NEB Q4HWA [facility] Last Admin: 04/17/18 06:33 Dose: 200 mg Albuterol Sulfate (Ventolin 0.083% Nebulizer Soln -) 1 amp NEB Q4HWA [facility] Last Admin: 04/17/18 06:34 Dose: 1 amp Amino Acids (Prosource No Carb Liquid Pkt) 30 ml GT TID [facility] Last Admin: 04/17/18 07:14 Dose: 30 ml Budesonide/Formoterol Fumarate (Symbicort 160/4.5mcg -) 2 puff IH BID [facility] Last Admin: 04/16/18 22:06 Dose: 2 puff Clonazepam (Klonopin -) 0.25 mg PO Q6H PRN PRN Reason: ANXIETY Last Admin: 04/17/18 01:48 Dose: 0.25 mg Emtricitabine/Tenofovir (Truvada) 1 tab PO DAILY [facility] Last Admin: 04/16/18 09:54 Dose: 1 tab Etravirine (Intelence -) 100 mg PO BIDPC [facility] Last Admin: 04/16/18 17:30 Dose: 100 mg Fluticasone Propionate (Flonase -) 1 spray NS DAILY [facility] Last Admin: 04/16/18 09:48 Dose: 1 spray Gabapentin (Neurontin Oral Liquid -) 250 mg PEG BID [facility] Last Admin: 04/16/18 21:53 Dose: 250 mg Famotidine/Sodium Chloride (Pepcid 20 Mg Premixed Ivpb -) 20 mg in 50 mls @ 100 mls/hr IVPB BID [facility] Last Admin: 04/16/18 21:53 Dose: 100 mls/hr Piperacillin Sod/Tazobactam (Sod 3.375 gm/ Dextrose) 50 mls @ 100 mls/hr IVPB Q8H-IV RAZ; Protocol Last Admin: 04/17/18 01:47 Dose: 100 mls/hr Sodium Chloride (Normal Saline -) 1,000 mls @ 75 mls/hr IV ASDIR [facility] Last Admin: 04/17/18 07:12 Dose: 75 mls/hr Ibuprofen (Caldolor Injection -) 600 mg IVPB Q6H PRN PRN Reason: PAIN LEVEL 1 - 3 Last Admin: 04/16/18 19:04 Dose: 600 mg Lactobacillus Acidophilus (Bacid -) 1 tab PO DAILY [facility] Last Admin: 04/16/18 09:47 Dose: 1 tab Methylprednisolone Sodium Succinate (Solu-Medrol -) 20 mg IVPUSH BID [facility] Last Admin: 04/16/18 21:53 Dose: 20 mg Mirtazapine (Remeron -) 15 mg PEG HS [facility] Last Admin: 04/16/18 21:53 Dose: 15 mg Ondansetron HCl (Zofran Injection) 4 mg IVPUSH Q6H PRN PRN Reason: NAUSEA AND/OR VOMITING Raltegravir (Isentress -) 400 mg NR BID [facility] Last Admin: 04/16/18 21:54 Dose: 400 mg Sertraline HCl (Zoloft -) 50 mg PO DAILY [facility] Last Admin: 04/16/18 09:55 Dose: 50 mg Tramadol HCl (Ultram -) 50 mg PO Q6H PRN PRN Reason: PAIN LEVEL 6-10 Last Admin: 04/16/18 17:15 Dose: 50 mg Vancomycin HCl (Vancomycin Oral Solution) 125 mg PO Q6HPO [facility] Last Admin: 04/17/18 07:14 Dose: 125 mg - Objective Vital Signs: Vital Signs Temperature 98.5 F 04/17/18 05:00 Pulse Rate 89 04/17/18 05:00 Respiratory Rate 20 04/17/18 06:04 Blood Pressure 110/55 04/17/18 05:00 O2 Sat by Pulse Oximetry (%) 92 L 04/17/18 06:04 Constitutional: Yes: Cachectic Eyes: Yes: WNL, Conjunctiva Clear, EOM Intact HENT: Yes: WNL, Atraumatic, Normocephalic Neck: Yes: WNL, Supple, Trachea Midline Cardiovascular: Yes: WNL, Regular Rate and Rhythm Respiratory: Yes: Diminished Gastrointestinal: Yes: WNL, Normal Bowel Sounds Genitourinary: Yes: WNL Musculoskeletal: Yes: WNL Extremities: Yes: WNL Edema: No Integumentary: Yes: WNL Neurological: Yes: WNL, Alert, Oriented ...Motor Strength: WNL Psychiatric: Yes: WNL Labs: CBC, BMP 04/16/18 09:04 04/16/18 09:04 INR, PTT INR 1.02 (0.83-1.09) 04/09/18 09:27 Assessment/Plan - Problems (1) Acute on chronic respiratory failure with hypoxia and hypercapnia Code(s): J96.21 - ACUTE AND CHRONIC RESPIRATORY FAILURE WITH HYPOXIA; J96.22 - ACUTE AND CHRONIC RESPIRATORY FAILURE WITH HYPERCAPNIA (2) Laryngeal carcinoma Code(s): C32.9 - MALIGNANT NEOPLASM OF LARYNX, UNSPECIFIED (3) AIDS Code(s): B20 - HUMAN IMMUNODEFICIENCY VIRUS [HIV] DISEASE (4) Tobacco dependence Code(s): F17.200 - NICOTINE DEPENDENCE, UNSPECIFIED, UNCOMPLICATED (5) Tracheostomy dependence Code(s): Z93.0 - TRACHEOSTOMY STATUS (6) Atypical chest pain Code(s): R07.89 - OTHER CHEST PAIN (7) Acute on chronic diastolic CHF (congestive heart failure) Code(s): I50.33 - ACUTE ON CHRONIC DIASTOLIC (CONGESTIVE) HEART FAILURE (8) Pericardial effusion Code(s): I31.3 - PERICARDIAL EFFUSION (NONINFLAMMATORY) cardiac delcid stable - d/c telemetry
[2018-04-17] MEDS: GABAPENTIN 250 MG/5 ML ORAL SOLUTION, 470 ML BOTTLE PEG SCH ×2 (09:36→22:30)
[2018-04-17] MEDS: EMTRICITABINE 200MG/TENOFOVIR 300MG PO SCH (09:37)
[2018-04-17] MEDS: ETRAVIRINE 100 MG TABLET PO SCH ×2 (09:38→17:48)
[2018-04-17] MEDS: RALTEGRAVIR POTASSIUM 400 MG TAB NR SCH ×2 (09:39→22:29)
[2018-04-17] MEDS: LACTOBACILLUS ACIDOPHILUS 1 TABLET PO SCH (09:41)
[2018-04-17] MEDS: methylPREDNISolone NA SUCC 40 MG/1 ML VIAL IVPUSH SCH (09:42)
[2018-04-17] MEDS: SERTRALINE HCL 50 MG TABLET (FP) PO SCH (09:44)
[2018-04-17] MEDS: BUDESONIDE/FORMETEROL FUMARATE 160/4.5 mcg INHALER IH SCH ×2 (09:44→23:02)
[2018-04-17] MEDS: FAMOTIDINE 20 MG/50 ML IVPB 20 MG/50 ML MG IVPB SCH ×2 (09:44→22:30)
[2018-04-17] MEDS: FLUTICASONE PROP 0.05% 16 GM NASAL SPRAY NS SCH (09:44)
[2018-04-17 11:20] LABS: HEMATOCRIT 29.7 % (32.4-45.2); HEMOGLOBIN 9.8 GM/dL (10.7-15.3); LYMPH % 8.6 % (8-40); MCH 32.2 pg (25.7-33.7); MCHC 32.9 g/dl (32.0-36.0); MEAN CELL VOLUME 97.9 fl (80-96); MEAN PLT VOLUME 8.7 fl (7.5-11.1); MONO % 3.1 % (3.8-10.2); NEUT % 88.3 % (42.8-82.8); PLATELET COUNT 327 K/MM3 (134-434); RBC 3.04 M/mm3 (3.60-5.2); WHITE BLOOD COUNT 14.4 K/mm3 (4.0-10.0)
[2018-04-17 11:59] LABS: ANION GAP 9 MMOL/L (8-16); BLOOD UREA NITROGEN 23 mg/dL (7-18); CALCIUM 8.4 mg/dL (8.5-10.1); CHLORIDE 103 mmol/L (98-107); CO2 30 mmol/L (21-32); CREATININE 0.3 mg/dL (0.55-1.3); GLUCOSE,RANDOM 102 mg/dL (74-106); MAGNESIUM 2.1 mg/dL (1.8-2.4); POTASSIUM 3.7 mmol/L (3.5-5.1); SGOT/AST 15 U/L (15-37); SGPT/ALT 26 U/L (13-61); SODIUM 142 mmol/L (136-145)
[2018-04-17 12:01] LABS: ALK PHOS 66 U/L (45-117); BILIRUBIN,TOTAL 0.4 mg/dL (0.2-1.0); TOT PROT 5.4 g/dl (6.4-8.2)
[2018-04-17] MEDS: ACETAMINOPHEN 325 MG TABLET (FP) PO PRN ×2 (12:04→20:43)
--- NOTE | 2018-04-17 13:03 | PN ---
Physical Exam: SUBJECTIVE: Patient seen and examined at bedside. Multiple episodes of watery, yellowish diarrhea. OBJECTIVE: Vital Signs Period Temp Pulse Resp BP Sys/Lisa Pulse Ox Last 24 Hr 98.5 F-101.2 F 89-109 18-22 110-142/55-93 92-97 GENERAL: The patient is awake, alert, and fully oriented. LUNGS: Trach/trach collar, uses passy casey valve; diffuse rhonchi; thick james secretions HEART: Regular rate and rhythm, S1, S2 ABDOMEN: Soft, nontender, nondistended EXTREMITIES: 2+ pulses, warm, well-perfused, no edema. NEUROLOGICAL: Cranial nerves II through XII grossly intact. Normal speech, gait not observed. Laboratory Results - last 24 hr 04/17/18 04/17/18 10:40 10:40 WBC 14.4 H RBC 3.04 L Hgb 9.8 L Hct 29.7 L MCV 97.9 H MCH 32.2 MCHC 32.9 RDW 15.0 Plt Count 327 MPV 8.7 Absolute Neuts (auto) 12.7 H Neutrophils % 88.3 H Lymphocytes % 8.6 D Monocytes % 3.1 L Eosinophils % 0.0 Basophils % 0.0 Nucleated RBC % 0 Sodium 142 Potassium 3.7 Chloride 103 Carbon Dioxide 30 Anion Gap 9 BUN 23 H Creatinine 0.3 L Creat Clearance w eGFR > 60 Random Glucose 102 Calcium 8.4 L Magnesium 2.1 Total Bilirubin 0.4 AST 15 ALT 26 Alkaline Phosphatase 66 Total Protein 5.4 L Albumin 2.0 L Active Medications Generic Name Dose Route Start Last Admin Trade Name Freq PRN Reason Stop Dose Admin Acetaminophen 650 mg 04/03/18 15:41 04/17/18 12:04 Tylenol - PO 650 mg Q6H PRN Administration FEVER Acetylcysteine 200 mg 04/03/18 10:30 04/17/18 10:43 Mucomyst 20 Oral / Inh Use Only* NEB 200 mg Q4HWA RAZ Administration Albuterol Sulfate 1 amp 04/17/18 14:00 Ventolin 0.083% Nebulizer Soln - NEB Q4HWA RAZ Amino Acids 30 ml 04/13/18 14:45 04/17/18 07:14 Prosource No Carb Liquid Pkt GT 30 ml TID RAZ Administration Budesonide/Formoterol Fumarate 2 puff 04/03/18 22:00 04/17/18 09:44 Symbicort 160/4.5mcg - IH 2 puff BID RAZ Administration Clonazepam 0.25 mg 04/16/18 14:00 04/17/18 12:03 Klonopin - PO 0.25 mg Q6H PRN Administration ANXIETY Emtricitabine/Tenofovir 1 tab 04/04/18 10:00 04/17/18 09:37 Truvada PO 1 tab DAILY RAZ Administration Etravirine 100 mg 04/03/18 18:30 04/17/18 09:38 Intelence - PO 100 mg BIDPC RAZ Administration Fluticasone Propionate 1 spray 04/04/18 10:00 04/17/18 09:44 Flonase - NS 1 spray DAILY RAZ Administration Gabapentin 250 mg 04/03/18 22:00 04/17/18 09:36 Neurontin Oral Liquid - PEG 250 mg BID RAZ Administration Famotidine/Sodium Chloride 20 mg in 50 mls @ 100 mls/hr 04/03/18 22:00 09:44 Pepcid 20 Mg Premixed Ivpb - IVPB 100 mls/hr BID RAZ Administration Piperacillin Sod/Tazobactam 50 mls @ 100 mls/hr 04/11/18 12:45 04/17/18 09:44 Sod 3.375 gm/ Dextrose IVPB 100 mls/hr Q8H-IV RAZ Administration Protocol Sodium Chloride 1,000 mls @ 75 mls/hr 04/13/18 18:15 04/17/18 07:12 Normal Saline - IV 75 mls/hr ASDIR RAZ Administration Ibuprofen 600 mg 04/15/18 16:39 04/16/18 19:04 Caldolor Injection - IVPB 600 mg Q6H PRN Administration PAIN LEVEL 1 - 3 Lactobacillus Acidophilus 1 tab 04/03/18 10:45 04/17/18 09:41 Bacid - PO 1 tab DAILY RAZ Administration Methylprednisolone Sodium Succinate 20 mg 04/11/18 22:00 04/17/18 09:42 Solu-Medrol - IVPUSH 20 mg BID RAZ Administration Mirtazapine 15 mg 04/03/18 22:00 04/16/18 21:53 Remeron - PEG 15 mg HS RAZ Administration Ondansetron HCl 4 mg 04/11/18 19:55 Zofran Injection IVPUSH Q6H PRN NAUSEA AND/OR VOMITING Raltegravir 400 mg 04/03/18 22:00 04/17/18 09:39 Isentress - NR 400 mg BID RAZ Administration Sertraline HCl 50 mg 04/04/18 10:00 04/17/18 09:44 Zoloft - PO 50 mg DAILY RAZ Administration Tramadol HCl 50 mg 04/16/18 14:13 04/16/18 17:15 Ultram - PO 50 mg Q6H PRN Administration PAIN LEVEL 6-10 Vancomycin HCl 125 mg 04/15/18 18:00 04/17/18 12:04 Vancomycin Oral Solution PO 125 mg Q6HPO RAZ Administration ASSESSMENT/PLAN 47 year-old female with a PMH significant for HIV/AIDS, laryngeal cancer s/p trach and PEG, HBV, and failure to thrive. Admitted for sepsis secondary to bilateral pneumonia. Sepsis secondary to bilateral pneumonia Bilateral pleural effusions --spiking fevers x 7 days, Tm 101.2, tachycardic to 109, WBC trending up, 10- ->13.9k-->14.4, BP stable --thick, james secretions from trach, send off sputum culture --pleural fluid from 04/09 is still pending fungal culture from [facility], will check on status --continue Zosyn (day #7) --discussed with Dr. Kee Klebsiella bacteremia --treated with cefazolin (04/03-->04/11) --03/30, 04/03, 04/09, 04/11 blood cultures negative C. diff --antigen positive, toxin negative --PO vanc (day #2) Chronic respiratory failure --trach collar @ 40% FiO2 HIV/AIDS --CD4 311 --continue HAART Laryngeal cancer --no acute issues Hep B --no acute issues Failure to thrive Severe malnutrition FEN Fluids/nutrition: tube feeds via PEG Electrolytes: replete as indicated DVT prophylaxis: subq heparin Physical therapy Dispo: continues to require inpatient care. Full code. Visit type - Emergency Visit Emergency Visit: Yes ED Registration Date: 03/28/18 Care time: The patient presented to the Emergency Department on the above date and was hospitalized for further evaluation of their emergent condition. - New Patient This patient is new to me today: No - Critical Care Critical Care patient: No
--- NOTE | 2018-04-17 14:01 | PN ---
Progress Note (short form) - Note Progress Note: Appears comfortable. No CP or SOB. afebrile Intake & Output 04/14/18 04/15/18 04/16/18 04/17/18 23:59 23:59 23:59 23:59 Intake Total 3663 1560 2910 850 Output Total 300 400 Balance 3663 1560 2610 450 Last Vital Signs Temp Pulse Resp BP Pulse Ox 101.2 F H 89 22 125/81 92 L 04/17/18 11:58 04/17/18 09:34 04/17/18 09:34 04/17/18 09:34 04/17/18 06:04 Active Medications Acetaminophen (Tylenol -) 650 mg PO Q6H PRN PRN Reason: FEVER Last Admin: 04/17/18 12:04 Dose: 650 mg Acetylcysteine (Mucomyst 20 Oral / Inh Use Only*) 200 mg NEB Q4HWA [facility] Last Admin: 04/17/18 10:43 Dose: 200 mg Albuterol Sulfate (Ventolin 0.083% Nebulizer Soln -) 1 amp NEB Q4HWA [facility] Amino Acids (Prosource No Carb Liquid Pkt) 30 ml GT TID [facility] Last Admin: 04/17/18 07:14 Dose: 30 ml Budesonide/Formoterol Fumarate (Symbicort 160/4.5mcg -) 2 puff IH BID [facility] Last Admin: 04/17/18 09:44 Dose: 2 puff Clonazepam (Klonopin -) 0.25 mg PO Q6H PRN PRN Reason: ANXIETY Last Admin: 04/17/18 12:03 Dose: 0.25 mg Emtricitabine/Tenofovir (Truvada) 1 tab PO DAILY [facility] Last Admin: 04/17/18 09:37 Dose: 1 tab Etravirine (Intelence -) 100 mg PO BIDPC [facility] Last Admin: 04/17/18 09:38 Dose: 100 mg Fluticasone Propionate (Flonase -) 1 spray NS DAILY [facility] Last Admin: 04/17/18 09:44 Dose: 1 spray Gabapentin (Neurontin Oral Liquid -) 250 mg PEG BID [facility] Last Admin: 04/17/18 09:36 Dose: 250 mg Famotidine/Sodium Chloride (Pepcid 20 Mg Premixed Ivpb -) 20 mg in 50 mls @ 100 mls/hr IVPB BID [facility] Last Admin: 04/17/18 09:44 Dose: 100 mls/hr Piperacillin Sod/Tazobactam (Sod 3.375 gm/ Dextrose) 50 mls @ 100 mls/hr IVPB Q8H-IV RAZ; Protocol Last Admin: 04/17/18 09:44 Dose: 100 mls/hr Sodium Chloride (Normal Saline -) 1,000 mls @ 75 mls/hr IV ASDIR [facility] Last Admin: 04/17/18 07:12 Dose: 75 mls/hr Ibuprofen (Caldolor Injection -) 600 mg IVPB Q6H PRN PRN Reason: PAIN LEVEL 1 - 3 Last Admin: 04/16/18 19:04 Dose: 600 mg Lactobacillus Acidophilus (Bacid -) 1 tab PO DAILY [facility] Last Admin: 04/17/18 09:41 Dose: 1 tab Methylprednisolone Sodium Succinate (Solu-Medrol -) 20 mg IVPUSH BID [facility] Last Admin: 04/17/18 09:42 Dose: 20 mg Mirtazapine (Remeron -) 15 mg PEG HS [facility] Last Admin: 04/16/18 21:53 Dose: 15 mg Ondansetron HCl (Zofran Injection) 4 mg IVPUSH Q6H PRN PRN Reason: NAUSEA AND/OR VOMITING Raltegravir (Isentress -) 400 mg NR BID [facility] Last Admin: 04/17/18 09:39 Dose: 400 mg Sertraline HCl (Zoloft -) 50 mg PO DAILY [facility] Last Admin: 04/17/18 09:44 Dose: 50 mg Tramadol HCl (Ultram -) 50 mg PO Q6H PRN PRN Reason: PAIN LEVEL 6-10 Last Admin: 04/16/18 17:15 Dose: 50 mg Vancomycin HCl (Vancomycin Oral Solution) 125 mg PO Q6HPO [facility] Last Admin: 04/17/18 12:04 Dose: 125 mg Constitutional: Yes: NAD Eyes: Yes: WNL HENT: Yes: WNL Neck: Yes: Supple, Trach intact Cardiovascular: Yes: Regular Rate and Rhythm, S1, S2 Respiratory: Yes: Scattered bilateral Rhonchi Gastrointestinal: Yes: Normal Bowel Sounds, Soft Extremities: Yes: WNL Edema: No Labs: Laboratory Results - last 24 hr 04/17/18 04/17/18 10:40 10:40 WBC 14.4 H RBC 3.04 L Hgb 9.8 L Hct 29.7 L MCV 97.9 H MCH 32.2 MCHC 32.9 RDW 15.0 Plt Count 327 MPV 8.7 Absolute Neuts (auto) 12.7 H Neutrophils % 88.3 H Lymphocytes % 8.6 D Monocytes % 3.1 L Eosinophils % 0.0 Basophils % 0.0 Nucleated RBC % 0 Sodium 142 Potassium 3.7 Chloride 103 Carbon Dioxide 30 Anion Gap 9 BUN 23 H Creatinine 0.3 L Creat Clearance w eGFR > 60 Random Glucose 102 Calcium 8.4 L Magnesium 2.1 Total Bilirubin 0.4 AST 15 ALT 26 Alkaline Phosphatase 66 Total Protein 5.4 L Albumin 2.0 L Problem List - Problems (1) Acute on chronic respiratory failure with hypoxia and hypercapnia Code(s): J96.21 - ACUTE AND CHRONIC RESPIRATORY FAILURE WITH HYPOXIA; J96.22 - ACUTE AND CHRONIC RESPIRATORY FAILURE WITH HYPERCAPNIA (2) Laryngeal carcinoma Code(s): C32.9 - MALIGNANT NEOPLASM OF LARYNX, UNSPECIFIED (3) Pneumonia Code(s): J18.9 - PNEUMONIA, UNSPECIFIED ORGANISM Qualifiers: Pneumonia type: due to unspecified organism Laterality: bilateral Lung location: unspecified part of lung Qualified Code(s): J18.9 - Pneumonia, unspecified organism (4) AIDS Code(s): B20 - HUMAN IMMUNODEFICIENCY VIRUS [HIV] DISEASE (5) Difficulty breathing Code(s): R06.89 - OTHER ABNORMALITIES OF BREATHING (6) HIV (human immunodeficiency virus infection) Code(s): Z21 - ASYMPTOMATIC HUMAN IMMUNODEFICIENCY VIRUS INFECTION STATUS (7) Head and neck cancer Code(s): C76.0 - MALIGNANT NEOPLASM OF HEAD, FACE AND NECK Assessment/Plan Acute on Chronic Hypoxic Respiratory Failure improving Bilateral Pneumonia ARDS resolving Klebsiella Bacteremia Sepsis HIV/AIDS h/o Laryngeal Ca s/p trach/PEG Pleural effusion exudate likely uncomplicated parapneumonic effusion - ABx per ID - inhaled bronchodilators - pain control - Chest PT/bed percussion - O2 to maintain saturation - continue ART - DVT prophylaxis - Change to Prednsione Dr Mccall
--- NOTE | 2018-04-17 15:07 | PN ---
Progress Note, Physician History of Present Illness: Awake, alert Remains febrile Reports continued loose stools despite po vancomycin c/o sore throat Breathing non-labored - Current Medication List Current Medications: Active Medications Acetaminophen (Tylenol -) 650 mg PO Q6H PRN PRN Reason: FEVER Last Admin: 04/17/18 12:04 Dose: 650 mg Acetylcysteine (Mucomyst 20 Oral / Inh Use Only*) 200 mg NEB Q4HWA [facility] Last Admin: 04/17/18 14:20 Dose: 200 mg Albuterol Sulfate (Ventolin 0.083% Nebulizer Soln -) 1 amp NEB Q4HWA [facility] Last Admin: 04/17/18 14:20 Dose: 1 amp Amino Acids (Prosource No Carb Liquid Pkt) 30 ml GT TID [facility] Last Admin: 04/17/18 14:06 Dose: 30 ml Budesonide/Formoterol Fumarate (Symbicort 160/4.5mcg -) 2 puff IH BID [facility] Last Admin: 04/17/18 09:44 Dose: 2 puff Clonazepam (Klonopin -) 0.25 mg PO Q6H PRN PRN Reason: ANXIETY Last Admin: 04/17/18 12:03 Dose: 0.25 mg Clotrimazole (Mycelex Lasha's -) 10 mg PO 5XD [facility] Emtricitabine/Tenofovir (Truvada) 1 tab PO DAILY [facility] Last Admin: 04/17/18 09:37 Dose: 1 tab Etravirine (Intelence -) 100 mg PO BIDPC [facility]Z Last Admin: 04/17/18 09:38 Dose: 100 mg Fluticasone Propionate (Flonase -) 1 spray NS DAILY [facility] Last Admin: 04/17/18 09:44 Dose: 1 spray Gabapentin (Neurontin Oral Liquid -) 250 mg PEG BID [facility] Last Admin: 04/17/18 09:36 Dose: 250 mg Famotidine/Sodium Chloride (Pepcid 20 Mg Premixed Ivpb -) 20 mg in 50 mls @ 100 mls/hr IVPB BID [facility] Last Admin: 04/17/18 09:44 Dose: 100 mls/hr Piperacillin Sod/Tazobactam (Sod 3.375 gm/ Dextrose) 50 mls @ 100 mls/hr IVPB Q8H-IV RAZ; Protocol Last Admin: 04/17/18 09:44 Dose: 100 mls/hr Sodium Chloride (Normal Saline -) 1,000 mls @ 75 mls/hr IV ASDIR [facility] Last Admin: 04/17/18 07:12 Dose: 75 mls/hr Metronidazole (Flagyl 500mg Premixed Ivpb -) 500 mg in 100 mls @ 100 mls/hr IVPB Q8H-IV [facility]Z Ibuprofen (Caldolor Injection -) 600 mg IVPB Q6H PRN PRN Reason: PAIN LEVEL 1 - 3 Last Admin: 04/16/18 19:04 Dose: 600 mg Lactobacillus Acidophilus (Bacid -) 1 tab PO DAILY [facility] Last Admin: 04/17/18 09:41 Dose: 1 tab Mirtazapine (Remeron -) 15 mg PEG HS [facility] Last Admin: 04/16/18 21:53 Dose: 15 mg Ondansetron HCl (Zofran Injection) 4 mg IVPUSH Q6H PRN PRN Reason: NAUSEA AND/OR VOMITING Phenol/Menthol (Chloraseptic -) 1 spray MM Q6HPO PRN PRN Reason: SORE THROAT Prednisone (Deltasone -) 40 mg PO DAILY [facility] Raltegravir (Isentress -) 400 mg NR BID [facility] Last Admin: 04/17/18 09:39 Dose: 400 mg Sertraline HCl (Zoloft -) 50 mg PO DAILY [facility] Last Admin: 04/17/18 09:44 Dose: 50 mg Tramadol HCl (Ultram -) 50 mg PO Q6H PRN PRN Reason: PAIN LEVEL 6-10 Last Admin: 04/16/18 17:15 Dose: 50 mg Vancomycin HCl (Vancomycin Oral Solution) 125 mg PO Q6HPO [facility] Last Admin: 04/17/18 12:04 Dose: 125 mg - Objective Vital Signs: Vital Signs Temperature 101.2 F H 04/17/18 11:58 Pulse Rate 87 04/17/18 15:00 Respiratory Rate 22 04/17/18 15:00 Blood Pressure 128/54 04/17/18 15:00 O2 Sat by Pulse Oximetry (%) 92 L 04/17/18 06:04 Constitutional: Yes: Cachectic HENT: Yes: Thrush Cardiovascular: Yes: Regular Rate and Rhythm, S1, S2 Respiratory: Yes: Rhonchi Gastrointestinal: Yes: Normal Bowel Sounds, Soft Edema: No Labs: CBC, BMP 04/17/18 10:40 04/17/18 10:40 INR, PTT INR 1.02 (0.83-1.09) 04/09/18 09:27 Assessment/Plan Fever ? C diff Bilateral Pneumonia Respiratory failure Klebsiella bacteremia AIDS Continue Vancomycin po Add flagyl IV D/C zosyn Repeat BC off antibiotics for continued fever
[2018-04-17] MEDS: PHENOL 177 ML SPRAY BOTTLE MM PRN (15:48)
[2018-04-17] MEDS: CLOTRIMAZOLE 10 MG TROCHE (FP) PO SCH ×2 (18:48→22:31)
[2018-04-17] MEDS: traMADol HCL 50 MG TABLET PO PRN (20:43)
[2018-04-17] MEDS: MIRTAZAPINE 15 MG TABLET (FP) PEG SCH (22:29)
[2018-04-17] MEDS: ZOLPIDEM TARTRATE 5 MG TABLET PO PRN (22:33)
[2018-04-18] MEDS: IBUPROFEN 800 MG/8 ML IJ IVPB PRN ×3 (00:23→21:58)
[2018-04-18] MEDS: clonazePAM 0.5 MG TABLET PO PRN ×2 (01:30→10:50)
[2018-04-18] MEDS: traMADol HCL 50 MG TABLET PO PRN ×2 (05:50→16:57)
[2018-04-18] MEDS: VANCOMYCIN 250 MG/5 ML ORAL SOLUTION PO SCH ×4 (05:51→23:07)
[2018-04-18] MEDS: AMINO ACIDS/PROTEIN HYDROLYS 30 ML LIQUID.PKT GT SCH ×3 (05:51→21:59)
[2018-04-18] MEDS: CLOTRIMAZOLE 10 MG TROCHE (FP) PO SCH ×5 (05:52→22:00)
[2018-04-18] MEDS: ACETAMINOPHEN 325 MG TABLET (FP) PO PRN (05:52)
[2018-04-18] MEDS: ALBUTEROL SO4 0.083% IH SOL 2.5 MG/3 ML VIAL.NEB. NEB SCH ×5 (06:30→23:00)
[2018-04-18] MEDS: ACETYLCYSTEINE 20% 200MG/ML 4 ML VIAL *FOR ORAL / INH USE ONLY NEB SCH ×5 (06:30→23:00)
[2018-04-18 08:04] LABS: EOS % 0.2 % (0-4.5); HEMATOCRIT 28.9 % (32.4-45.2); HEMOGLOBIN 9.6 GM/dL (10.7-15.3); LYMPH % 5.8 % (8-40); MCH 32.7 pg (25.7-33.7); MCHC 33.3 g/dl (32.0-36.0); MEAN CELL VOLUME 98.3 fl (80-96); MEAN PLT VOLUME 8.2 fl (7.5-11.1); PLATELET COUNT 316 K/MM3 (134-434); RBC 2.94 M/mm3 (3.60-5.2); WHITE BLOOD COUNT 20.4 K/mm3 (4.0-10.0)
[2018-04-18 08:55] LABS: ALBUMIN 1.6 g/dl (3.4-5.0); ANION GAP 8 MMOL/L (8-16); BLOOD UREA NITROGEN 21 mg/dL (7-18); CALCIUM 7.8 mg/dL (8.5-10.1); CHLORIDE 104 mmol/L (98-107); CO2 31 mmol/L (21-32); CREATININE 0.3 mg/dL (0.55-1.3); GLUCOSE,RANDOM 98 mg/dL (74-106); POTASSIUM 3.5 mmol/L (3.5-5.1); SGOT/AST 15 U/L (15-37); SGPT/ALT 22 U/L (13-61); SODIUM 143 mmol/L (136-145)
--- NOTE | 2018-04-18 08:56 | PN ---
Progress Note, Physician - Current Medication List Current Medications: Active Medications Acetaminophen (Tylenol -) 650 mg PO Q6H PRN PRN Reason: FEVER Last Admin: 04/18/18 05:52 Dose: 650 mg Acetylcysteine (Mucomyst 20 Oral / Inh Use Only*) 200 mg NEB Q4HWA [facility] Last Admin: 04/18/18 06:30 Dose: 200 mg Albuterol Sulfate (Ventolin 0.083% Nebulizer Soln -) 1 amp NEB Q4HWA [facility] Last Admin: 04/18/18 06:30 Dose: 1 amp Amino Acids (Prosource No Carb Liquid Pkt) 30 ml GT TID [facility] Last Admin: 04/18/18 05:51 Dose: 30 ml Budesonide/Formoterol Fumarate (Symbicort 160/4.5mcg -) 2 puff IH BID [facility] Last Admin: 04/17/18 23:02 Dose: 2 puff Clonazepam (Klonopin -) 0.25 mg PO Q6H PRN PRN Reason: ANXIETY Last Admin: 04/18/18 01:30 Dose: 0.25 mg Clotrimazole (Mycelex Lasha's -) 10 mg PO 5XD [facility] Last Admin: 04/18/18 05:52 Dose: 10 mg Emtricitabine/Tenofovir (Truvada) 1 tab PO DAILY [facility] Last Admin: 04/17/18 09:37 Dose: 1 tab Etravirine (Intelence -) 100 mg PO BIDPC [facility] Last Admin: 04/17/18 17:48 Dose: 100 mg Fluticasone Propionate (Flonase -) 1 spray NS DAILY [facility] Last Admin: 04/17/18 09:44 Dose: 1 spray Gabapentin (Neurontin Oral Liquid -) 250 mg PEG BID [facility] Last Admin: 04/17/18 22:30 Dose: 250 mg Famotidine/Sodium Chloride (Pepcid 20 Mg Premixed Ivpb -) 20 mg in 50 mls @ 100 mls/hr IVPB BID [facility] Last Admin: 04/17/18 22:30 Dose: 100 mls/hr Sodium Chloride (Normal Saline -) 1,000 mls @ 75 mls/hr IV ASDIR [facility] Last Admin: 04/17/18 20:13 Dose: Not Given Metronidazole (Flagyl 500mg Premixed Ivpb -) 500 mg in 100 mls @ 100 mls/hr IVPB Q8H-IV [facility] Last Admin: 04/18/18 02:21 Dose: 100 mls/hr Ibuprofen (Caldolor Injection -) 600 mg IVPB Q6H PRN PRN Reason: PAIN LEVEL 1 - 3 Last Admin: 04/18/18 08:10 Dose: 600 mg Lactobacillus Acidophilus (Bacid -) 1 tab PO DAILY [facility] Last Admin: 04/17/18 09:41 Dose: 1 tab Mirtazapine (Remeron -) 15 mg PEG HS [facility] Last Admin: 04/17/18 22:29 Dose: 15 mg Ondansetron HCl (Zofran Injection) 4 mg IVPUSH Q6H PRN PRN Reason: NAUSEA AND/OR VOMITING Phenol/Menthol (Chloraseptic -) 1 spray MM Q6HPO PRN PRN Reason: SORE THROAT Last Admin: 04/17/18 15:48 Dose: 1 spray Prednisone (Deltasone -) 40 mg PO DAILY [facility] Raltegravir (Isentress -) 400 mg NR BID [facility] Last Admin: 04/17/18 22:29 Dose: 400 mg Sertraline HCl (Zoloft -) 50 mg PO DAILY [facility] Last Admin: 04/17/18 09:44 Dose: 50 mg Tramadol HCl (Ultram -) 50 mg PO Q6H PRN PRN Reason: PAIN LEVEL 6-10 Last Admin: 04/18/18 05:50 Dose: 50 mg Vancomycin HCl (Vancomycin Oral Solution) 125 mg PO Q6HPO [facility] Last Admin: 04/18/18 05:51 Dose: 125 mg Zolpidem Tartrate (Ambien -) 5 mg PO HS PRN PRN Reason: INSOMNIA Last Admin: 04/17/18 22:33 Dose: 5 mg - Objective Vital Signs: Vital Signs Temperature 100.1 F H 04/18/18 06:00 Pulse Rate 101 H 04/18/18 06:00 Respiratory Rate 18 04/18/18 06:00 Blood Pressure 119/77 04/18/18 06:00 O2 Sat by Pulse Oximetry (%) 93 L 04/17/18 21:00 Eyes: Yes: WNL, Conjunctiva Clear, EOM Intact HENT: Yes: WNL, Atraumatic, Normocephalic Neck: Yes: WNL, Supple, Trachea Midline Cardiovascular: Yes: WNL, Regular Rate and Rhythm Respiratory: Yes: Diminished Gastrointestinal: Yes: WNL, Normal Bowel Sounds Genitourinary: Yes: WNL Musculoskeletal: Yes: WNL Extremities: Yes: WNL Edema: No Integumentary: Yes: WNL Neurological: Yes: WNL, Alert, Oriented ...Motor Strength: WNL Psychiatric: Yes: WNL Labs: CBC, BMP 04/18/18 07:48 INR, PTT INR 1.02 (0.83-1.09) 04/09/18 09:27 Assessment/Plan - Problems (1) Acute on chronic respiratory failure with hypoxia and hypercapnia Code(s): J96.21 - ACUTE AND CHRONIC RESPIRATORY FAILURE WITH HYPOXIA; J96.22 - ACUTE AND CHRONIC RESPIRATORY FAILURE WITH HYPERCAPNIA (2) Laryngeal carcinoma Code(s): C32.9 - MALIGNANT NEOPLASM OF LARYNX, UNSPECIFIED (3) AIDS Code(s): B20 - HUMAN IMMUNODEFICIENCY VIRUS [HIV] DISEASE (4) Tobacco dependence Code(s): F17.200 - NICOTINE DEPENDENCE, UNSPECIFIED, UNCOMPLICATED (5) Tracheostomy dependence Code(s): Z93.0 - TRACHEOSTOMY STATUS (6) Atypical chest pain Code(s): R07.89 - OTHER CHEST PAIN (7) Acute on chronic diastolic CHF (congestive heart failure) Code(s): I50.33 - ACUTE ON CHRONIC DIASTOLIC (CONGESTIVE) HEART FAILURE (8) Pericardial effusion Code(s): I31.3 - PERICARDIAL EFFUSION (NONINFLAMMATORY) cardiac delcid stable - d/c telemetry
[2018-04-18 08:58] LABS: ALK PHOS 58 U/L (45-117); BILIRUBIN,TOTAL 0.2 mg/dL (0.2-1.0); TOT PROT 4.7 g/dl (6.4-8.2)
--- NOTE | 2018-04-18 09:49 | PN ---
Physical Exam: SUBJECTIVE: Patient seen and examined at bedside. Greenish sputum from trach. Diarrhea persists. Mild abdominal cramping. OBJECTIVE: Vital Signs Period Temp Pulse Resp BP Sys/Lisa Pulse Ox Last 24 Hr 100.1 F-101.3 F 83-101 17-22 117-128/54-77 93-94 GENERAL: The patient is awake, alert, and fully oriented. LUNGS: Trach/trach collar, uses passy casey valve; diffuse rhonchi; light green secretions HEART: Regular rate and rhythm, S1, S2 ABDOMEN: Soft, nontender, nondistended EXTREMITIES: 2+ pulses, warm, well-perfused, no edema. NEUROLOGICAL: Cranial nerves II through XII grossly intact. Normal speech, gait not observed. Laboratory Results - last 24 hr 04/17/18 04/17/18 04/18/18 10:40 10:40 07:48 WBC 14.4 H 20.4 H RBC 3.04 L 2.94 L Hgb 9.8 L 9.6 L Hct 29.7 L 28.9 L MCV 97.9 H 98.3 H MCH 32.2 32.7 MCHC 32.9 33.3 RDW 15.0 15.0 Plt Count 327 316 MPV 8.7 8.2 Absolute Neuts (auto) 12.7 H 18.7 H Neutrophils % 88.3 H 92.0 H Lymphocytes % 8.6 D 5.8 L D Monocytes % 3.1 L 2.0 L Eosinophils % 0.0 0.2 D Basophils % 0.0 0.0 Nucleated RBC % 0 0 Sodium 142 Potassium 3.7 Chloride 103 Carbon Dioxide 30 Anion Gap 9 BUN 23 H Creatinine 0.3 L Creat Clearance w eGFR > 60 Random Glucose 102 Calcium 8.4 L Magnesium 2.1 Total Bilirubin 0.4 AST 15 ALT 26 Alkaline Phosphatase 66 Total Protein 5.4 L Albumin 2.0 L 04/18/18 07:48 WBC RBC Hgb Hct MCV MCH MCHC RDW Plt Count MPV Absolute Neuts (auto) Neutrophils % Lymphocytes % Monocytes % Eosinophils % Basophils % Nucleated RBC % Sodium 143 Potassium 3.5 Chloride 104 Carbon Dioxide 31 Anion Gap 8 BUN 21 H Creatinine 0.3 L Creat Clearance w eGFR > 60 Random Glucose 98 Calcium 7.8 L Magnesium 2.0 Total Bilirubin 0.2 AST 15 ALT 22 Alkaline Phosphatase 58 Total Protein 4.7 L Albumin 1.6 L Active Medications Generic Name Dose Route Start Last Admin Trade Name Freq PRN Reason Stop Dose Admin Acetaminophen 650 mg 04/03/18 15:41 04/18/18 05:52 Tylenol - PO 650 mg Q6H PRN Administration FEVER Acetylcysteine 200 mg 04/03/18 10:30 04/18/18 06:30 Mucomyst 20 Oral / Inh Use Only* NEB 200 mg Q4HWA RAZ Administration Albuterol Sulfate 1 amp 04/17/18 14:00 04/18/18 06:30 Ventolin 0.083% Nebulizer Soln - NEB 1 amp Q4HWA RAZ Administration Amino Acids 30 ml 04/13/18 14:45 04/18/18 05:51 Prosource No Carb Liquid Pkt GT 30 ml TID RAZ Administration Budesonide/Formoterol Fumarate 2 puff 04/03/18 22:00 04/17/18 23:02 Symbicort 160/4.5mcg - IH 2 puff BID RAZ Administration Clonazepam 0.25 mg 04/16/18 14:00 04/18/18 01:30 Klonopin - PO 0.25 mg Q6H PRN Administration ANXIETY Clotrimazole 10 mg 04/17/18 18:00 04/18/18 05:52 Mycelex Lasha's - PO 10 mg 5XD RAZ Administration Emtricitabine/Tenofovir 1 tab 04/04/18 10:00 04/17/18 09:37 Truvada PO 1 tab DAILY RAZ Administration Etravirine 100 mg 04/03/18 18:30 04/17/18 17:48 Intelence - PO 100 mg BIDPC RAZ Administration Fluticasone Propionate 1 spray 04/04/18 10:00 04/17/18 09:44 Flonase - NS 1 spray DAILY RAZ Administration Gabapentin 250 mg 04/03/18 22:00 04/17/18 22:30 Neurontin Oral Liquid - PEG 250 mg BID RAZ Administration Famotidine/Sodium Chloride 20 mg in 50 mls @ 100 mls/hr 04/03/18 22:00 22:30 Pepcid 20 Mg Premixed Ivpb - IVPB 100 mls/hr BID RAZ Administration Sodium Chloride 1,000 mls @ 75 mls/hr 04/13/18 18:15 04/17/18 20:13 Normal Saline - IV Not Given ASDIR RAZ Metronidazole 500 mg in 100 mls @ 100 mls/hr 04/17/18 18:00 04/18/18 02:21 Flagyl 500mg Premixed Ivpb - IVPB 100 mls/hr Q8H-IV RAZ Administration Ibuprofen 600 mg 04/15/18 16:39 04/18/18 08:10 Caldolor Injection - IVPB 600 mg Q6H PRN Administration PAIN LEVEL 1 - 3 Lactobacillus Acidophilus 1 tab 04/03/18 10:45 04/17/18 09:41 Bacid - PO 1 tab DAILY RAZ Administration Mirtazapine 15 mg 04/03/18 22:00 04/17/18 22:29 Remeron - PEG 15 mg HS RAZ Administration Ondansetron HCl 4 mg 04/11/18 19:55 Zofran Injection IVPUSH Q6H PRN NAUSEA AND/OR VOMITING Phenol/Menthol 1 spray 04/17/18 13:57 04/17/18 15:48 Chloraseptic - MM 1 spray Q6HPO PRN Administration SORE THROAT Prednisone 40 mg 04/18/18 10:00 Deltasone - PO DAILY RAZ Raltegravir 400 mg 04/03/18 22:00 04/17/18 22:29 Isentress - NR 400 mg BID RAZ Administration Sertraline HCl 50 mg 04/04/18 10:00 04/17/18 09:44 Zoloft - PO 50 mg DAILY RAZ Administration Tramadol HCl 50 mg 04/16/18 14:13 04/18/18 05:50 Ultram - PO 50 mg Q6H PRN Administration PAIN LEVEL 6-10 Vancomycin HCl 125 mg 04/15/18 18:00 04/18/18 05:51 Vancomycin Oral Solution PO 125 mg Q6HPO RAZ Administration Zolpidem Tartrate 5 mg 04/17/18 21:59 04/17/18 22:33 Ambien - PO 5 mg HS PRN Administration INSOMNIA Microbiology 04/17/18 11:50 Sputum - Endotrachea Suction/Ventilator Gram Stain - Final 04/17/18 11:50 Sputum - Endotrachea Suction/Ventilator Sputum Culture - Preliminary 04/11/18 12:47 Blood - Peripheral Venous Blood Culture - Final NO GROWTH AFTER 5 DAYS INCUBATION 04/11/18 12:29 Blood - Peripheral Venous Blood Culture - Final NO GROWTH AFTER 5 DAYS INCUBATION 04/09/18 22:30 Blood - Peripheral Venous Blood Culture - Final NO GROWTH AFTER 5 DAYS INCUBATION 04/09/18 22:30 Blood - Peripheral Venous Blood Culture - Final NO GROWTH AFTER 5 DAYS INCUBATION 04/13/18 12:00 Stool Clostridium difficile Antigen (NEW) - Final - Antigen positive 04/13/18 12:00 Stool Clostridium difficile Toxin Assay - Final - Toxin negative 04/09/18 12:30 Pleural Fluid AFB Smear Concentration - Final 04/09/18 12:30 Pleural Fluid Mycobacterial Culture - Preliminary 04/11/18 16:22 Urine - Urine Clean Catch Urine Culture - Final NO GROWTH OBTAINED 04/11/18 20:00 Nasopharyngeal Swab Influenza Types A,B Antigen - Final 04/11/18 20:00 Nasopharyngeal Swab - Final 04/09/18 12:30 Pleural Fluid Gram Stain - Final 04/09/18 12:30 Pleural Fluid Body Fluid Culture - Final NO GROWTH OF AEROBIC ORGANISMS AFTER 48 HOURS INCUBATION 04/09/18 12:30 Pleural Fluid Anaerobic Culture - Final NO ANAEROBES WERE ISOLATED 04/09/18 12:30 Pleural Fluid RAE Preparation - Preliminary 04/09/18 12:30 Pleural Fluid Fungal Culture - Preliminary 04/03/18 05:40 Blood - Peripheral Venous Blood Culture - Final NO GROWTH AFTER 5 DAYS INCUBATION 04/03/18 05:30 Blood - Peripheral Venous Blood Culture - Final NO GROWTH AFTER 5 DAYS INCUBATION 03/30/18 20:30 Blood - Peripheral Venous Blood Culture - Final NO GROWTH AFTER 5 DAYS INCUBATION 03/30/18 18:00 Blood - Peripheral Venous Blood Culture - Final NO GROWTH AFTER 5 DAYS INCUBATION 03/28/18 12:35 Blood - Peripheral Venous Blood Culture - Final Klebsiella Pneumoniae 03/28/18 12:35 Blood - Peripheral Venous Blood Culture - Final Klebsiella Pneumoniae 03/28/18 12:50 Urine - Urine Clean Catch Urine Culture - Final ASSESSMENT/PLAN: 47 year-old female with a PMH significant for HIV/AIDS, laryngeal cancer s/p trach and PEG, HBV, and failure to thrive. Admitted for sepsis secondary to bilateral pneumonia. Sepsis secondary to bilateral pneumonia Bilateral pleural effusions --spiking fevers x 8 days, Tm 101.3, WBC sharply trending up, 13.9k-->14.4--> 20.4k, BP stable --light green secretions from trach --04/09 pleural fluid final results negative --04/17 sputum culture growing GNR --per ID, Zosyn stopped (03/28-->04/17) --metronidazole started (04/17--> ) --blood, stool cultures, c.diff PCR sent today --Abd xray today Klebsiella bacteremia --treated with cefazolin (04/03-->04/11) --03/30, 04/03, 04/09, 04/11 blood cultures negative C. diff --diarrhea persists --antigen positive, toxin negative --PO vanc (day #3) Chronic respiratory failure --trach collar @ 40% FiO2 HIV/AIDS --CD4 311 --continue HAART Laryngeal cancer --no acute issues Hep B --no acute issues Failure to thrive Severe malnutrition FEN Fluids/nutrition: tube feeds via PEG Electrolytes: replete as indicated DVT prophylaxis: subq heparin Visit type - Emergency Visit Emergency Visit: Yes ED Registration Date: 03/28/18 Care time: The patient presented to the Emergency Department on the above date and was hospitalized for further evaluation of their emergent condition. - New Patient This patient is new to me today: No - Critical Care Critical Care patient: No
[2018-04-18] MEDS: BUDESONIDE/FORMETEROL FUMARATE 160/4.5 mcg INHALER IH SCH ×2 (10:00→22:03)
[2018-04-18] MEDS: predniSONE 20 MG TABLET (UD) PO SCH (10:50)
[2018-04-18] MEDS: LACTOBACILLUS ACIDOPHILUS 1 TABLET PO SCH (10:50)
[2018-04-18] MEDS: SERTRALINE HCL 50 MG TABLET (FP) PO SCH (10:50)
[2018-04-18] MEDS: EMTRICITABINE 200MG/TENOFOVIR 300MG PO SCH (10:51)
[2018-04-18] MEDS: RALTEGRAVIR POTASSIUM 400 MG TAB NR SCH ×2 (10:52→21:59)
[2018-04-18] MEDS: FAMOTIDINE 20 MG/50 ML IVPB 20 MG/50 ML MG IVPB SCH ×2 (10:53→21:59)
[2018-04-18] MEDS: ETRAVIRINE 100 MG TABLET PO SCH ×2 (10:53→18:03)
[2018-04-18] MEDS: FLUTICASONE PROP 0.05% 16 GM NASAL SPRAY NS SCH (10:54)
[2018-04-18 11:19] LABS: PLATELET ESTIMATE ADEQUATE
--- NOTE | 2018-04-18 12:50 | PN ---
Progress Note (short form) - Note Progress Note: Recurrent diarrhea. Still with mucous production. No CP or SOB. Afebrile. Intake & Output 04/15/18 04/16/18 04/17/18 04/18/18 23:59 23:59 23:59 23:59 Intake Total 1560 2910 1587 460 Output Total 300 400 Balance 1560 2610 1187 460 Last Vital Signs Temp Pulse Resp BP Pulse Ox 100.1 F H 64 20 97/51 94 L 04/18/18 06:00 04/18/18 10:00 04/18/18 10:00 04/18/18 10:00 04/18/18 09:00 Active Medications Acetaminophen (Tylenol -) 650 mg PO Q6H PRN PRN Reason: FEVER Last Admin: 04/18/18 05:52 Dose: 650 mg Acetylcysteine (Mucomyst 20 Oral / Inh Use Only*) 200 mg NEB Q4HWA [facility] Last Admin: 04/18/18 10:40 Dose: 200 mg Albuterol Sulfate (Ventolin 0.083% Nebulizer Soln -) 1 amp NEB Q4HWA [facility] Last Admin: 04/18/18 10:40 Dose: 1 amp Amino Acids (Prosource No Carb Liquid Pkt) 30 ml GT TID [facility] Last Admin: 04/18/18 05:51 Dose: 30 ml Budesonide/Formoterol Fumarate (Symbicort 160/4.5mcg -) 2 puff IH BID [facility] Last Admin: 04/17/18 23:02 Dose: 2 puff Clonazepam (Klonopin -) 0.25 mg PO Q6H PRN PRN Reason: ANXIETY Last Admin: 04/18/18 10:50 Dose: 0.25 mg Clotrimazole (Mycelex Lasha's -) 10 mg PO 5XD [facility] Last Admin: 04/18/18 10:54 Dose: 10 mg Emtricitabine/Tenofovir (Truvada) 1 tab PO DAILY [facility] Last Admin: 04/18/18 10:51 Dose: 1 tab Etravirine (Intelence -) 100 mg PO BIDPC [facility] Last Admin: 04/18/18 10:53 Dose: 100 mg Fluticasone Propionate (Flonase -) 1 spray NS DAILY [facility] Last Admin: 04/18/18 10:54 Dose: 1 spray Gabapentin (Neurontin Oral Liquid -) 250 mg PEG BID [facility] Last Admin: 04/17/18 22:30 Dose: 250 mg Famotidine/Sodium Chloride (Pepcid 20 Mg Premixed Ivpb -) 20 mg in 50 mls @ 100 mls/hr IVPB BID [facility] Last Admin: 04/18/18 10:53 Dose: 100 mls/hr Sodium Chloride (Normal Saline -) 1,000 mls @ 75 mls/hr IV ASDIR [facility] Last Admin: 04/17/18 20:13 Dose: Not Given Metronidazole (Flagyl 500mg Premixed Ivpb -) 500 mg in 100 mls @ 100 mls/hr IVPB Q8H-IV [facility] Last Admin: 04/18/18 10:53 Dose: 100 mls/hr Ibuprofen (Caldolor Injection -) 600 mg IVPB Q6H PRN PRN Reason: PAIN LEVEL 1 - 3 Last Admin: 04/18/18 08:10 Dose: 600 mg Lactobacillus Acidophilus (Bacid -) 1 tab PO DAILY [facility] Last Admin: 04/18/18 10:50 Dose: 1 tab Mirtazapine (Remeron -) 15 mg PEG HS [facility] Last Admin: 04/17/18 22:29 Dose: 15 mg Ondansetron HCl (Zofran Injection) 4 mg IVPUSH Q6H PRN PRN Reason: NAUSEA AND/OR VOMITING Phenol/Menthol (Chloraseptic -) 1 spray MM Q6HPO PRN PRN Reason: SORE THROAT Last Admin: 04/17/18 15:48 Dose: 1 spray Prednisone (Deltasone -) 40 mg PO DAILY [facility] Last Admin: 04/18/18 10:50 Dose: 40 mg Raltegravir (Isentress -) 400 mg NR BID [facility] Last Admin: 04/18/18 10:52 Dose: 400 mg Sertraline HCl (Zoloft -) 50 mg PO DAILY [facility] Last Admin: 04/18/18 10:50 Dose: 50 mg Tramadol HCl (Ultram -) 50 mg PO Q6H PRN PRN Reason: PAIN LEVEL 6-10 Last Admin: 04/18/18 05:50 Dose: 50 mg Vancomycin HCl (Vancomycin Oral Solution) 125 mg PO Q6HPO [facility] Last Admin: 04/18/18 12:33 Dose: 125 mg Zolpidem Tartrate (Ambien -) 5 mg PO HS PRN PRN Reason: INSOMNIA Last Admin: 04/17/18 22:33 Dose: 5 mg Constitutional: Yes: NAD Eyes: Yes: WNL HENT: Yes: WNL Neck: Yes: Supple, Trach intact Cardiovascular: Yes: Regular Rate and Rhythm, S1, S2 Respiratory: Yes: Scattered bilateral Rhonchi Gastrointestinal: Yes: Normal Bowel Sounds, Soft Extremities: Yes: WNL Edema: No Labs: Laboratory Results - last 24 hr 04/18/18 04/18/18 07:48 07:48 WBC 20.4 H RBC 2.94 L Hgb 9.6 L Hct 28.9 L MCV 98.3 H MCH 32.7 MCHC 33.3 RDW 15.0 Plt Count 316 MPV 8.2 Absolute Neuts (auto) 18.7 H Neutrophils % 92.0 H Neutrophils % (Manual) 58.0 Band Neutrophils % 31.0 Lymphocytes % 5.8 L D Lymphocytes % (Manual) 11.0 D Monocytes % 2.0 L Monocytes % (Manual) 0 L D Eosinophils % 0.2 D Eosinophils % (Manual) 0.0 Basophils % 0.0 Basophils % (Manual) 0.0 Nucleated RBC % 0 Platelet Estimate Adequate Sodium 143 Potassium 3.5 Chloride 104 Carbon Dioxide 31 Anion Gap 8 BUN 21 H Creatinine 0.3 L Creat Clearance w eGFR > 60 Random Glucose 98 Calcium 7.8 L Magnesium 2.0 Total Bilirubin 0.2 AST 15 ALT 22 Alkaline Phosphatase 58 Total Protein 4.7 L Albumin 1.6 L Problem List - Problems (1) Acute on chronic respiratory failure with hypoxia and hypercapnia Code(s): J96.21 - ACUTE AND CHRONIC RESPIRATORY FAILURE WITH HYPOXIA; J96.22 - ACUTE AND CHRONIC RESPIRATORY FAILURE WITH HYPERCAPNIA (2) Laryngeal carcinoma Code(s): C32.9 - MALIGNANT NEOPLASM OF LARYNX, UNSPECIFIED (3) Pneumonia Code(s): J18.9 - PNEUMONIA, UNSPECIFIED ORGANISM Qualifiers: Pneumonia type: due to unspecified organism Laterality: bilateral Lung location: unspecified part of lung Qualified Code(s): J18.9 - Pneumonia, unspecified organism (4) AIDS Code(s): B20 - HUMAN IMMUNODEFICIENCY VIRUS [HIV] DISEASE (5) Difficulty breathing Code(s): R06.89 - OTHER ABNORMALITIES OF BREATHING (6) HIV (human immunodeficiency virus infection) Code(s): Z21 - ASYMPTOMATIC HUMAN IMMUNODEFICIENCY VIRUS INFECTION STATUS (7) Head and neck cancer Code(s): C76.0 - MALIGNANT NEOPLASM OF HEAD, FACE AND NECK Assessment/Plan Acute on Chronic Hypoxic Respiratory Failure improving Bilateral Pneumonia ARDS resolving Klebsiella Bacteremia Sepsis HIV/AIDS h/o Laryngeal Ca s/p trach/PEG Pleural effusion exudate likely uncomplicated parapneumonic effusion - ABX per ID - inhaled bronchodilators - pain control - Chest PT/bed percussion - O2 to maintain saturation - continue ART - DVT prophylaxis - Prednsione Dr Mccall
[2018-04-18] MEDS: GABAPENTIN 250 MG/5 ML ORAL SOLUTION, 470 ML BOTTLE PEG SCH ×2 (13:13→22:00)
[2018-04-18] MEDS: SODIUM CHLORIDE 1,000 ML IV SCH (19:04)
--- NOTE | 2018-04-18 21:34 | PN ---
Progress Note, Physician History of Present Illness: Awake, alert Remains febrile Reports diarrhea better Sore throat better with mycelex Breathing non-labored - Current Medication List Current Medications: Active Medications Acetaminophen (Tylenol -) 650 mg PO Q6H PRN PRN Reason: FEVER Last Admin: 04/18/18 05:52 Dose: 650 mg Acetylcysteine (Mucomyst 20 Oral / Inh Use Only*) 200 mg NEB Q4HWA [facility] Last Admin: 04/18/18 19:03 Dose: 200 mg Albuterol Sulfate (Ventolin 0.083% Nebulizer Soln -) 1 amp NEB Q4HWA RAZ Last Admin: 04/18/18 19:03 Dose: 1 amp Amino Acids (Prosource No Carb Liquid Pkt) 30 ml GT TID [facility] Last Admin: 04/18/18 13:15 Dose: 30 ml Budesonide/Formoterol Fumarate (Symbicort 160/4.5mcg -) 2 puff IH BID [facility] Last Admin: 04/18/18 10:00 Dose: 2 puff Clonazepam (Klonopin -) 0.25 mg PO Q6H PRN PRN Reason: ANXIETY Last Admin: 04/18/18 10:50 Dose: 0.25 mg Clotrimazole (Mycelex Lasha's -) 10 mg PO 5XD [facility] Last Admin: 04/18/18 17:30 Dose: 10 mg Emtricitabine/Tenofovir (Truvada) 1 tab PO DAILY [facility] Last Admin: 04/18/18 10:51 Dose: 1 tab Etravirine (Intelence -) 100 mg PO BIDPC [facility] Last Admin: 04/18/18 18:03 Dose: 100 mg Fluticasone Propionate (Flonase -) 1 spray NS DAILY [facility] Last Admin: 04/18/18 10:54 Dose: 1 spray Gabapentin (Neurontin Oral Liquid -) 250 mg PEG BID [facility] Last Admin: 04/18/18 13:13 Dose: 250 mg Famotidine/Sodium Chloride (Pepcid 20 Mg Premixed Ivpb -) 20 mg in 50 mls @ 100 mls/hr IVPB BID [facility] Last Admin: 04/18/18 10:53 Dose: 100 mls/hr Sodium Chloride (Normal Saline -) 1,000 mls @ 75 mls/hr IV ASDIR RAZ Last Admin: 04/18/18 19:04 Dose: 75 mls/hr Metronidazole (Flagyl 500mg Premixed Ivpb -) 500 mg in 100 mls @ 100 mls/hr IVPB Q8H-IV [facility] Last Admin: 04/18/18 17:30 Dose: 100 mls/hr Ibuprofen (Caldolor Injection -) 600 mg IVPB Q6H PRN PRN Reason: PAIN LEVEL 1 - 3 Last Admin: 04/18/18 08:10 Dose: 600 mg Lactobacillus Acidophilus (Bacid -) 1 tab PO DAILY [facility] Last Admin: 04/18/18 10:50 Dose: 1 tab Mirtazapine (Remeron -) 15 mg PEG HS [facility] Last Admin: 04/17/18 22:29 Dose: 15 mg Ondansetron HCl (Zofran Injection) 4 mg IVPUSH Q6H PRN PRN Reason: NAUSEA AND/OR VOMITING Phenol/Menthol (Chloraseptic -) 1 spray MM Q6HPO PRN PRN Reason: SORE THROAT Last Admin: 04/17/18 15:48 Dose: 1 spray Prednisone (Deltasone -) 40 mg PO DAILY [facility] Last Admin: 04/18/18 10:50 Dose: 40 mg Raltegravir (Isentress -) 400 mg NR BID [facility] Last Admin: 04/18/18 10:52 Dose: 400 mg Sertraline HCl (Zoloft -) 50 mg PO DAILY [facility] Last Admin: 04/18/18 10:50 Dose: 50 mg Tramadol HCl (Ultram -) 50 mg PO Q6H PRN PRN Reason: PAIN LEVEL 6-10 Last Admin: 04/18/18 16:57 Dose: 50 mg Vancomycin HCl (Vancomycin Oral Solution) 125 mg PO Q6HPO [facility] Last Admin: 04/18/18 17:30 Dose: 125 mg Zolpidem Tartrate (Ambien -) 5 mg PO HS PRN PRN Reason: INSOMNIA Last Admin: 04/17/18 22:33 Dose: 5 mg - Objective Vital Signs: Vital Signs Temperature 100.1 F H 04/18/18 13:56 Pulse Rate 72 04/18/18 19:05 Respiratory Rate 18 04/18/18 17:15 Blood Pressure 103/52 04/18/18 17:15 O2 Sat by Pulse Oximetry (%) 96 04/18/18 19:05 Constitutional: Yes: Cachectic Cardiovascular: Yes: Regular Rate and Rhythm, S1, S2 Respiratory: Yes: Rhonchi Gastrointestinal: Yes: Normal Bowel Sounds, Soft Edema: No Labs: CBC, BMP 04/18/18 07:48 04/18/18 07:48 INR, PTT INR 1.02 (0.83-1.09) 04/09/18 09:27 Assessment/Plan Fever ? C diff Bilateral Pneumonia Respiratory failure Klebsiella bacteremia AIDS Continue Vancomycin po /flagyl IV Repeat BC off antibiotics obtained
[2018-04-18] MEDS: ZOLPIDEM TARTRATE 5 MG TABLET PO PRN (22:00)
[2018-04-18] MEDS: MIRTAZAPINE 15 MG TABLET (FP) PEG SCH (22:00)
[2018-04-19] MEDS: clonazePAM 0.5 MG TABLET PO PRN ×2 (00:58→09:06)
[2018-04-19] MEDS: VANCOMYCIN 250 MG/5 ML ORAL SOLUTION PO SCH ×4 (06:29→23:41)
[2018-04-19] MEDS: AMINO ACIDS/PROTEIN HYDROLYS 30 ML LIQUID.PKT GT SCH ×3 (06:29→21:01)
[2018-04-19] MEDS: CLOTRIMAZOLE 10 MG TROCHE (FP) PO SCH ×6 (06:29→21:02)
[2018-04-19] MEDS: traMADol HCL 50 MG TABLET PO PRN ×2 (06:33→15:38)
[2018-04-19] MEDS: ALBUTEROL SO4 0.083% IH SOL 2.5 MG/3 ML VIAL.NEB. NEB SCH ×5 (06:45→22:00)
[2018-04-19] MEDS: ACETYLCYSTEINE 20% 200MG/ML 4 ML VIAL *FOR ORAL / INH USE ONLY NEB SCH ×5 (06:45→22:00)
--- NOTE | 2018-04-19 08:25 | PN ---
Physical Exam: SUBJECTIVE: Patient seen and examined at bedside. Diarrhea persists. OBJECTIVE: Vital Signs Period Temp Pulse Resp BP Sys/Lisa Pulse Ox Last 24 Hr 99.2 F-100.1 F 64-105 18-20 97-131/51-86 91-96 GENERAL: The patient is awake, alert, and fully oriented. LUNGS: Trach/trach collar, uses passy casey valve; diffuse rhonchi HEART: Regular rate and rhythm, S1, S2 ABDOMEN: Soft, nontender, nondistended EXTREMITIES: 2+ pulses, warm, well-perfused, no edema. NEUROLOGICAL: Cranial nerves II through XII grossly intact. Normal speech, gait not observed. Laboratory Results - last 24 hr 04/18/18 04/18/18 07:48 07:48 Neutrophils % (Manual) 58.0 Band Neutrophils % 31.0 Lymphocytes % (Manual) 11.0 D Monocytes % (Manual) 0 L D Eosinophils % (Manual) 0.0 Basophils % (Manual) 0.0 Platelet Estimate Adequate Sodium 143 Potassium 3.5 Chloride 104 Carbon Dioxide 31 Anion Gap 8 BUN 21 H Creatinine 0.3 L Creat Clearance w eGFR > 60 Random Glucose 98 Calcium 7.8 L Magnesium 2.0 Total Bilirubin 0.2 AST 15 ALT 22 Alkaline Phosphatase 58 Total Protein 4.7 L Albumin 1.6 L Active Medications Generic Name Dose Route Start Last Admin Trade Name Freq PRN Reason Stop Dose Admin Acetaminophen 650 mg 04/03/18 15:41 04/18/18 05:52 Tylenol - PO 650 mg Q6H PRN Administration FEVER Acetylcysteine 200 mg 04/03/18 10:30 04/19/18 06:45 Mucomyst 20 Oral / Inh Use Only* NEB 200 mg Q4HWA RAZ Administration Albuterol Sulfate 1 amp 04/17/18 14:00 04/19/18 06:45 Ventolin 0.083% Nebulizer Soln - NEB 1 amp Q4HWA RAZ Administration Amino Acids 30 ml 04/13/18 14:45 04/19/18 06:29 Prosource No Carb Liquid Pkt GT 30 ml TID RAZ Administration Budesonide/Formoterol Fumarate 2 puff 04/03/18 22:00 04/18/18 22:03 Symbicort 160/4.5mcg - IH 2 puff BID RAZ Administration Clonazepam 0.25 mg 04/16/18 14:00 04/19/18 00:58 Klonopin - PO 0.25 mg Q6H PRN Administration ANXIETY Clotrimazole 10 mg 04/17/18 18:00 04/19/18 06:29 Mycelex Lasha's - PO 10 mg 5XD RAZ Administration Emtricitabine/Tenofovir 1 tab 04/04/18 10:00 04/18/18 10:51 Truvada PO 1 tab DAILY RAZ Administration Etravirine 100 mg 04/03/18 18:30 04/18/18 18:03 Intelence - PO 100 mg BIDPC RAZ Administration Fluticasone Propionate 1 spray 04/04/18 10:00 04/18/18 10:54 Flonase - NS 1 spray DAILY RAZ Administration Gabapentin 250 mg 04/03/18 22:00 04/18/18 22:00 Neurontin Oral Liquid - PEG 250 mg BID RAZ Administration Famotidine/Sodium Chloride 20 mg in 50 mls @ 100 mls/hr 04/03/18 22:00 21:59 Pepcid 20 Mg Premixed Ivpb - IVPB 100 mls/hr BID RAZ Administration Sodium Chloride 1,000 mls @ 75 mls/hr 04/13/18 18:15 04/18/18 19:04 Normal Saline - IV 75 mls/hr ASDIR RAZ Administration Metronidazole 500 mg in 100 mls @ 100 mls/hr 04/17/18 18:00 04/19/18 02:46 Flagyl 500mg Premixed Ivpb - IVPB 100 mls/hr Q8H-IV RAZ Administration Ibuprofen 600 mg 04/15/18 16:39 04/18/18 21:58 Caldolor Injection - IVPB 600 mg Q6H PRN Administration PAIN LEVEL 1 - 3 Lactobacillus Acidophilus 1 tab 04/03/18 10:45 04/18/18 10:50 Bacid - PO 1 tab DAILY RAZ Administration Mirtazapine 15 mg 04/03/18 22:00 04/18/18 22:00 Remeron - PEG 15 mg HS RAZ Administration Ondansetron HCl 4 mg 04/11/18 19:55 Zofran Injection IVPUSH Q6H PRN NAUSEA AND/OR VOMITING Phenol/Menthol 1 spray 04/17/18 13:57 04/17/18 15:48 Chloraseptic - MM 1 spray Q6HPO PRN Administration SORE THROAT Prednisone 40 mg 04/18/18 10:00 04/18/18 10:50 Deltasone - PO 40 mg DAILY RAZ Administration Raltegravir 400 mg 04/03/18 22:00 04/18/18 21:59 Isentress - NR 400 mg BID RAZ Administration Sertraline HCl 50 mg 04/04/18 10:00 04/18/18 10:50 Zoloft - PO 50 mg DAILY RAZ Administration Tramadol HCl 50 mg 04/16/18 14:13 04/19/18 06:33 Ultram - PO 50 mg Q6H PRN Administration PAIN LEVEL 6-10 Vancomycin HCl 125 mg 04/15/18 18:00 04/19/18 06:29 Vancomycin Oral Solution PO 125 mg Q6HPO RAZ Administration Zolpidem Tartrate 5 mg 04/17/18 21:59 04/18/18 22:00 Ambien - PO 5 mg HS PRN Administration INSOMNIA Microbiology 04/17/18 11:45 Trachea Insertion Site RAE Preparation - Preliminary 04/17/18 11:45 Trachea Insertion Site Fungal Culture - Preliminary 04/17/18 11:50 Sputum - Endotrachea Suction/Ventilator Gram Stain - Final 04/17/18 11:50 Sputum - Endotrachea Suction/Ventilator Sputum Culture - Preliminary Presumptive Ps Aeruginosa Non Lactose Fermenting Gnb Lactose Fermenting Neg Bacilli 04/11/18 12:47 Blood - Peripheral Venous Blood Culture - Final NO GROWTH AFTER 5 DAYS INCUBATION 04/11/18 12:29 Blood - Peripheral Venous Blood Culture - Final NO GROWTH AFTER 5 DAYS INCUBATION 04/09/18 22:30 Blood - Peripheral Venous Blood Culture - Final NO GROWTH AFTER 5 DAYS INCUBATION 04/09/18 22:30 Blood - Peripheral Venous Blood Culture - Final NO GROWTH AFTER 5 DAYS INCUBATION 04/13/18 12:00 Stool Clostridium difficile Antigen (NEW) - Final - Positive 04/13/18 12:00 Stool Clostridium difficile Toxin Assay - Final - Negative 04/09/18 12:30 Pleural Fluid AFB Smear Concentration - Final 04/09/18 12:30 Pleural Fluid Mycobacterial Culture - Preliminary 04/11/18 16:22 Urine - Urine Clean Catch Urine Culture - Final NO GROWTH OBTAINED 04/11/18 20:00 Nasopharyngeal Swab Influenza Types A,B Antigen - Final 04/11/18 20:00 Nasopharyngeal Swab - Final 04/09/18 12:30 Pleural Fluid Gram Stain - Final 04/09/18 12:30 Pleural Fluid Body Fluid Culture - Final NO GROWTH OF AEROBIC ORGANISMS AFTER 48 HOURS INCUBATION 04/09/18 12:30 Pleural Fluid Anaerobic Culture - Final NO ANAEROBES WERE ISOLATED 04/09/18 12:30 Pleural Fluid RAE Preparation - Preliminary 04/09/18 12:30 Pleural Fluid Fungal Culture - Preliminary 04/03/18 05:40 Blood - Peripheral Venous Blood Culture - Final NO GROWTH AFTER 5 DAYS INCUBATION 04/03/18 05:30 Blood - Peripheral Venous Blood Culture - Final NO GROWTH AFTER 5 DAYS INCUBATION 03/30/18 20:30 Blood - Peripheral Venous Blood Culture - Final NO GROWTH AFTER 5 DAYS INCUBATION 03/30/18 18:00 Blood - Peripheral Venous Blood Culture - Final NO GROWTH AFTER 5 DAYS INCUBATION 03/28/18 12:35 Blood - Peripheral Venous Blood Culture - Final Klebsiella Pneumoniae 03/28/18 12:35 Blood - Peripheral Venous Blood Culture - Final Klebsiella Pneumoniae 03/28/18 12:50 Urine - Urine Clean Catch Urine Culture - Final ASSESSMENT/PLAN: 47 year-old female with a PMH significant for HIV/AIDS, laryngeal cancer s/p trach and PEG, HBV, and failure to thrive. Admitted for sepsis secondary to bilateral pneumonia. Sepsis secondary to bilateral pneumonia Bilateral pleural effusions --Tm 100.1, WBC 21.6k, CXR today worse --04/17 sputum culture growing presumptive Pseuodomonas, NLFGNB, LFGNB --04/19 blood, stool cultures, c.diff PCR pending --discussed with Dr. Kee, nosocomial pathogens; resume antibiotic coverage , IV vanc and meropenem --CT chest ordered C. diff --diarrhea persists --antigen positive, toxin negative --04/19 Abd xray: air distension but no sign of megacolon --continue PO vanc and IV metronidazole Klebsiella bacteremia --treated with cefazolin (04/03-->04/11) --03/30, 04/03, 04/09, 04/11 blood cultures negative Chronic respiratory failure --trach collar @ 40% FiO2 HIV/AIDS --CD4 311 --continue HAART Laryngeal cancer --no acute issues Hep B --no acute issues Failure to thrive Severe malnutrition Hypokalemia --repleted FEN Fluids/nutrition: tube feeds via PEG Electrolytes: replete as indicated DVT prophylaxis: subq heparin Visit type - Emergency Visit Emergency Visit: Yes ED Registration Date: 03/28/18 Care time: The patient presented to the Emergency Department on the above date and was hospitalized for further evaluation of their emergent condition. - New Patient This patient is new to me today: No - Critical Care Critical Care patient: No
[2018-04-19 08:50] LABS: EOS % 0.1 % (0-4.5); HEMATOCRIT 26.3 % (32.4-45.2); HEMOGLOBIN 8.6 GM/dL (10.7-15.3); LYMPH % 4.4 % (8-40); MCH 32.3 pg (25.7-33.7); MCHC 32.8 g/dl (32.0-36.0); MEAN CELL VOLUME 98.7 fl (80-96); MEAN PLT VOLUME 8.2 fl (7.5-11.1); MONO % 1.7 % (3.8-10.2); NEUT % 93.8 % (42.8-82.8); PLATELET COUNT 311 K/MM3 (134-434); RBC 2.67 M/mm3 (3.60-5.2); RDW 14.9 % (11.6-15.6); WHITE BLOOD COUNT 21.6 K/mm3 (4.0-10.0)
[2018-04-19] MEDS: SERTRALINE HCL 50 MG TABLET (FP) PO SCH (09:05)
[2018-04-19] MEDS: predniSONE 20 MG TABLET (UD) PO SCH (09:06)
[2018-04-19] MEDS: LACTOBACILLUS ACIDOPHILUS 1 TABLET PO SCH (09:06)
[2018-04-19] MEDS: IBUPROFEN 800 MG/8 ML IJ IVPB PRN ×2 (09:07→20:56)
[2018-04-19] MEDS: BUDESONIDE/FORMETEROL FUMARATE 160/4.5 mcg INHALER IH SCH ×2 (09:12→21:02)
[2018-04-19] MEDS: FLUTICASONE PROP 0.05% 16 GM NASAL SPRAY NS SCH (09:12)
[2018-04-19] MEDS: EMTRICITABINE 200MG/TENOFOVIR 300MG PO SCH (09:12)
[2018-04-19] MEDS: RALTEGRAVIR POTASSIUM 400 MG TAB NR SCH ×2 (09:12→21:01)
[2018-04-19] MEDS: GABAPENTIN 250 MG/5 ML ORAL SOLUTION, 470 ML BOTTLE PEG SCH ×2 (09:12→21:01)
[2018-04-19] MEDS: RANITIDINE HCL 150 MG/10 ML UNIT-DOSE PEG SCH ×2 (09:12→21:01)
[2018-04-19] MEDS: ETRAVIRINE 100 MG TABLET PO SCH ×2 (09:13→21:01)
[2018-04-19 09:32] LABS: ALBUMIN 1.6 g/dl (3.4-5.0); ALK PHOS 60 U/L (45-117); ANION GAP 9 MMOL/L (8-16); BILIRUBIN,TOTAL 0.2 mg/dL (0.2-1.0); BLOOD UREA NITROGEN 26 mg/dL (7-18); CHLORIDE 107 mmol/L (98-107); CO2 31 mmol/L (21-32); CREATININE 0.2 mg/dL (0.55-1.3); GLUCOSE,RANDOM 107 mg/dL (74-106); SGOT/AST 14 U/L (15-37); SGPT/ALT 18 U/L (13-61); SODIUM 147 mmol/L (136-145); TOT PROT 4.6 g/dl (6.4-8.2)
[2018-04-19 09:48] LABS: PLATELET ESTIMATE ADEQUATE; TARGET CELLS 1+
--- NOTE | 2018-04-19 10:01 | PN ---
Progress Note, Physician History of Present Illness: pulmonary alert,c/o increased congestion,+ yellow,blood tinged secretions - Current Medication List Current Medications: Active Medications Acetaminophen (Tylenol -) 650 mg PO Q6H PRN PRN Reason: FEVER Last Admin: 04/18/18 05:52 Dose: 650 mg Acetylcysteine (Mucomyst 20 Oral / Inh Use Only*) 200 mg NEB Q4HWA [facility] Last Admin: 04/19/18 09:35 Dose: 200 mg Albuterol Sulfate (Ventolin 0.083% Nebulizer Soln -) 1 amp NEB Q4HWA [facility] Last Admin: 04/19/18 09:36 Dose: 1 amp Amino Acids (Prosource No Carb Liquid Pkt) 30 ml GT TID [facility] Last Admin: 04/19/18 06:29 Dose: 30 ml Budesonide/Formoterol Fumarate (Symbicort 160/4.5mcg -) 2 puff IH BID [facility] Last Admin: 04/19/18 09:12 Dose: 2 puff Clonazepam (Klonopin -) 0.25 mg PO Q6H PRN PRN Reason: ANXIETY Last Admin: 04/19/18 09:06 Dose: 0.25 mg Clotrimazole (Mycelex Lasha's -) 10 mg PO 5XD [facility] Last Admin: 04/19/18 09:12 Dose: 10 mg Emtricitabine/Tenofovir (Truvada) 1 tab PO DAILY [facility] Last Admin: 04/19/18 09:12 Dose: 1 tab Etravirine (Intelence -) 100 mg PO BIDPC [facility] Last Admin: 04/19/18 09:13 Dose: 100 mg Fluticasone Propionate (Flonase -) 1 spray NS DAILY [facility] Last Admin: 04/19/18 09:12 Dose: 1 spray Gabapentin (Neurontin Oral Liquid -) 250 mg PEG BID [facility] Last Admin: 04/19/18 09:12 Dose: 250 mg Metronidazole (Flagyl 500mg Premixed Ivpb -) 500 mg in 100 mls @ 100 mls/hr IVPB Q8H-IV RAZ Last Admin: 04/19/18 09:13 Dose: 100 mls/hr Ibuprofen (Caldolor Injection -) 600 mg IVPB Q6H PRN PRN Reason: PAIN LEVEL 1 - 3 Last Admin: 04/19/18 09:07 Dose: 600 mg Lactobacillus Acidophilus (Bacid -) 1 tab PO DAILY [facility] Last Admin: 04/19/18 09:06 Dose: 1 tab Mirtazapine (Remeron -) 15 mg PEG HS [facility] Last Admin: 04/18/18 22:00 Dose: 15 mg Ondansetron HCl (Zofran Injection) 4 mg IVPUSH Q6H PRN PRN Reason: NAUSEA AND/OR VOMITING Phenol/Menthol (Chloraseptic -) 1 spray MM Q6HPO PRN PRN Reason: SORE THROAT Last Admin: 04/17/18 15:48 Dose: 1 spray Potassium Chloride (Potassium Chloride Oral Liquid) 40 meq GT Q6H [facility] Stop: 04/19/18 16:01 Prednisone (Deltasone -) 40 mg PO DAILY [facility] Last Admin: 04/19/18 09:06 Dose: 40 mg Raltegravir (Isentress -) 400 mg NR BID [facility] Last Admin: 04/19/18 09:12 Dose: 400 mg Ranitidine HCl (Zantac Oral Solution -) 150 mg PEG BID [facility] Last Admin: 04/19/18 09:12 Dose: 150 mg Sertraline HCl (Zoloft -) 50 mg PO DAILY [facility] Last Admin: 04/19/18 09:05 Dose: 50 mg Tramadol HCl (Ultram -) 50 mg PO Q6H PRN PRN Reason: PAIN LEVEL 6-10 Last Admin: 04/19/18 06:33 Dose: 50 mg Vancomycin HCl (Vancomycin Oral Solution) 125 mg PO Q6HPO [facility] Last Admin: 04/19/18 06:29 Dose: 125 mg Zolpidem Tartrate (Ambien -) 5 mg PO HS PRN PRN Reason: INSOMNIA Last Admin: 04/18/18 22:00 Dose: 5 mg - Objective Vital Signs: Vital Signs Temperature 99.2 F 04/19/18 06:00 Pulse Rate 95 H 04/19/18 09:37 Respiratory Rate 18 04/19/18 06:00 Blood Pressure 131/86 04/19/18 06:00 O2 Sat by Pulse Oximetry (%) 96 04/19/18 09:37 Constitutional: Yes: Calm, Thin, Other (congested) Eyes: Yes: WNL HENT: Yes: WNL Neck: Yes: Supple (trach) Cardiovascular: Yes: Regular Rate and Rhythm, S1, S2 Respiratory: Yes: Rhonchi (bilateral rhonchi) Gastrointestinal: Yes: Normal Bowel Sounds, Soft Extremities: Yes: WNL Edema: No Labs: CBC, BMP 04/19/18 08:30 04/19/18 08:30 INR, PTT INR 1.02 (0.83-1.09) 04/09/18 09:27 Problem List - Problems (1) Acute on chronic respiratory failure with hypoxia and hypercapnia Code(s): J96.21 - ACUTE AND CHRONIC RESPIRATORY FAILURE WITH HYPOXIA; J96.22 - ACUTE AND CHRONIC RESPIRATORY FAILURE WITH HYPERCAPNIA (2) Laryngeal carcinoma Code(s): C32.9 - MALIGNANT NEOPLASM OF LARYNX, UNSPECIFIED (3) Pneumonia Code(s): J18.9 - PNEUMONIA, UNSPECIFIED ORGANISM Qualifiers: Pneumonia type: due to unspecified organism Laterality: bilateral Lung location: unspecified part of lung Qualified Code(s): J18.9 - Pneumonia, unspecified organism (4) AIDS Code(s): B20 - HUMAN IMMUNODEFICIENCY VIRUS [HIV] DISEASE (5) Difficulty breathing Code(s): R06.89 - OTHER ABNORMALITIES OF BREATHING (6) HIV (human immunodeficiency virus infection) Code(s): Z21 - ASYMPTOMATIC HUMAN IMMUNODEFICIENCY VIRUS INFECTION STATUS (7) Head and neck cancer Code(s): C76.0 - MALIGNANT NEOPLASM OF HEAD, FACE AND NECK Assessment/Plan A/P Acute on Chronic Hypoxic Respiratory Failure Bilateral Pneumonia ARDS resolving Klebsiella Bacteremia Sepsis HIV/AIDS h/o Laryngeal Ca s/p trach/PEG Pleural effusion exudate likely uncomplicated parapneumonic effusion Fever - off antibiotics as per ID - continue bacid - inhaled bronchodilators with mucomyst - pain control - chest PT/bed percussion - taper Fio2 to keep SpO2 >90% - continue ART - DVT prophylaxis - steroids - chest x-ray today - replete augustus MAYER
[2018-04-19] MEDS: POTASSIUM CHLORIDE ORAL LIQUID 20 MEQ/15 ML GT SCH ×2 (10:07→15:37)
[2018-04-19] MEDS ORDERED: CIPROFLOXACIN 0.3% EYE DROPS 5 ML BOTTLE OU SCH (11:15)
--- NOTE | 2018-04-19 11:17 | PN ---
Progress Note, Physician - Current Medication List Current Medications: Active Medications Acetaminophen (Tylenol -) 650 mg PO Q6H PRN PRN Reason: FEVER Last Admin: 04/18/18 05:52 Dose: 650 mg Acetylcysteine (Mucomyst 20 Oral / Inh Use Only*) 200 mg NEB Q4HWA [facility] Last Admin: 04/19/18 09:35 Dose: 200 mg Albuterol Sulfate (Ventolin 0.083% Nebulizer Soln -) 1 amp NEB Q4HWA [facility] Last Admin: 04/19/18 09:36 Dose: 1 amp Amino Acids (Prosource No Carb Liquid Pkt) 30 ml GT TID [facility] Last Admin: 04/19/18 06:29 Dose: 30 ml Budesonide/Formoterol Fumarate (Symbicort 160/4.5mcg -) 2 puff IH BID [facility] Last Admin: 04/19/18 09:12 Dose: 2 puff Ciprofloxacin (Ciloxan 0.3% Eye Drops --) 1 drop OU DAILY [facility] Clonazepam (Klonopin -) 0.25 mg PO Q6H PRN PRN Reason: ANXIETY Last Admin: 04/19/18 09:06 Dose: 0.25 mg Clotrimazole (Mycelex Lasah's -) 10 mg PO 5XD [facility] Last Admin: 04/19/18 09:12 Dose: 10 mg Emtricitabine/Tenofovir (Truvada) 1 tab PO DAILY [facility] Last Admin: 04/19/18 09:12 Dose: 1 tab Etravirine (Intelence -) 100 mg PO BIDPC [facility] Last Admin: 04/19/18 09:13 Dose: 100 mg Fluticasone Propionate (Flonase -) 1 spray NS DAILY [facility] Last Admin: 04/19/18 09:12 Dose: 1 spray Gabapentin (Neurontin Oral Liquid -) 250 mg PEG BID [facility] Last Admin: 04/19/18 09:12 Dose: 250 mg Metronidazole (Flagyl 500mg Premixed Ivpb -) 500 mg in 100 mls @ 100 mls/hr IVPB Q8H-IV [facility] Last Admin: 04/19/18 09:13 Dose: 100 mls/hr Ibuprofen (Caldolor Injection -) 600 mg IVPB Q6H PRN PRN Reason: PAIN LEVEL 1 - 3 Last Admin: 04/19/18 09:07 Dose: 600 mg Lactobacillus Acidophilus (Bacid -) 1 tab PO DAILY [facility] Last Admin: 04/19/18 09:06 Dose: 1 tab Mirtazapine (Remeron -) 15 mg PEG HS [facility] Last Admin: 04/18/18 22:00 Dose: 15 mg Ondansetron HCl (Zofran Injection) 4 mg IVPUSH Q6H PRN PRN Reason: NAUSEA AND/OR VOMITING Phenol/Menthol (Chloraseptic -) 1 spray MM Q6HPO PRN PRN Reason: SORE THROAT Last Admin: 04/17/18 15:48 Dose: 1 spray Potassium Chloride (Potassium Chloride Oral Liquid) 40 meq GT Q6H [facility] Stop: 04/19/18 16:01 Prednisone (Deltasone -) 40 mg PO DAILY [facility] Last Admin: 04/19/18 09:06 Dose: 40 mg Raltegravir (Isentress -) 400 mg NR BID [facility] Last Admin: 04/19/18 09:12 Dose: 400 mg Ranitidine HCl (Zantac Oral Solution -) 150 mg PEG BID [facility] Last Admin: 04/19/18 09:12 Dose: 150 mg Sertraline HCl (Zoloft -) 50 mg PO DAILY [facility] Last Admin: 04/19/18 09:05 Dose: 50 mg Tramadol HCl (Ultram -) 50 mg PO Q6H PRN PRN Reason: PAIN LEVEL 6-10 Last Admin: 04/19/18 06:33 Dose: 50 mg Vancomycin HCl (Vancomycin Oral Solution) 125 mg PO Q6HPO [facility] Last Admin: 04/19/18 06:29 Dose: 125 mg Zolpidem Tartrate (Ambien -) 5 mg PO HS PRN PRN Reason: INSOMNIA Last Admin: 04/18/18 22:00 Dose: 5 mg - Objective Vital Signs: Vital Signs Temperature 99.2 F 04/19/18 06:00 Pulse Rate 95 H 04/19/18 09:37 Respiratory Rate 18 04/19/18 06:00 Blood Pressure 131/86 04/19/18 06:00 O2 Sat by Pulse Oximetry (%) 96 04/19/18 09:37 Eyes: Yes: WNL, Conjunctiva Clear, EOM Intact HENT: Yes: WNL, Atraumatic, Normocephalic Neck: Yes: WNL, Supple, Trachea Midline Cardiovascular: Yes: WNL, Regular Rate and Rhythm Respiratory: Yes: Diminished Gastrointestinal: Yes: WNL, Normal Bowel Sounds Genitourinary: Yes: WNL Musculoskeletal: Yes: WNL Extremities: Yes: WNL Edema: No Integumentary: Yes: WNL Neurological: Yes: WNL, Alert, Oriented ...Motor Strength: WNL Psychiatric: Yes: WNL Labs: CBC, BMP 04/19/18 08:30 04/19/18 08:30 INR, PTT INR 1.02 (0.83-1.09) 04/09/18 09:27 Assessment/Plan - Problems (1) Acute on chronic respiratory failure with hypoxia and hypercapnia Code(s): J96.21 - ACUTE AND CHRONIC RESPIRATORY FAILURE WITH HYPOXIA; J96.22 - ACUTE AND CHRONIC RESPIRATORY FAILURE WITH HYPERCAPNIA (2) Laryngeal carcinoma Code(s): C32.9 - MALIGNANT NEOPLASM OF LARYNX, UNSPECIFIED (3) AIDS Code(s): B20 - HUMAN IMMUNODEFICIENCY VIRUS [HIV] DISEASE (4) Tobacco dependence Code(s): F17.200 - NICOTINE DEPENDENCE, UNSPECIFIED, UNCOMPLICATED (5) Tracheostomy dependence Code(s): Z93.0 - TRACHEOSTOMY STATUS (6) Atypical chest pain Code(s): R07.89 - OTHER CHEST PAIN (7) Acute on chronic diastolic CHF (congestive heart failure) Code(s): I50.33 - ACUTE ON CHRONIC DIASTOLIC (CONGESTIVE) HEART FAILURE (8) Pericardial effusion Code(s): I31.3 - PERICARDIAL EFFUSION (NONINFLAMMATORY) cardiac delcid stable - d/c telemetry
[2018-04-19] MEDS: CIPROFLOXACIN 0.3% EYE DROPS 5 ML BOTTLE OU SCH ×7 (12:00→23:41)
--- NOTE | 2018-04-19 14:23 | PN ---
Progress Note, Physician History of Present Illness: Awake, alert Remains febrile Diarrhea better + tracheal secretions Breathing non-labored CXR worsening L infiltrate WBC increased - Current Medication List Current Medications: Active Medications Acetaminophen (Tylenol -) 650 mg PO Q6H PRN PRN Reason: FEVER Last Admin: 04/18/18 05:52 Dose: 650 mg Acetylcysteine (Mucomyst 20 Oral / Inh Use Only*) 200 mg NEB Q4HWA [facility] Last Admin: 04/19/18 09:35 Dose: 200 mg Albuterol Sulfate (Ventolin 0.083% Nebulizer Soln -) 1 amp NEB Q4HWA [facility] Last Admin: 04/19/18 09:36 Dose: 1 amp Alprazolam (Xanax -) 0.25 mg PO TID [facility] Amino Acids (Prosource No Carb Liquid Pkt) 30 ml GT TID [facility] Last Admin: 04/19/18 06:29 Dose: 30 ml Budesonide/Formoterol Fumarate (Symbicort 160/4.5mcg -) 2 puff IH BID [facility] Last Admin: 04/19/18 09:12 Dose: 2 puff Ciprofloxacin (Ciloxan 0.3% Eye Drops --) 1 drop OU Q2H [facility] Stop: 04/21/18 11:14 Ciprofloxacin (Ciloxan 0.3% Eye Drops -) 1 drop OU Q4HWA [facility] Stop: 04/26/18 10:01 Clotrimazole (Mycelex Lasha's -) 10 mg PO 5XD [facility] Last Admin: 04/19/18 09:12 Dose: 10 mg Emtricitabine/Tenofovir (Truvada) 1 tab PO DAILY [facility] Last Admin: 04/19/18 09:12 Dose: 1 tab Etravirine (Intelence -) 100 mg PO BIDPC [facility] Last Admin: 04/19/18 09:13 Dose: 100 mg Fluticasone Propionate (Flonase -) 1 spray NS DAILY [facility] Last Admin: 04/19/18 09:12 Dose: 1 spray Gabapentin (Neurontin Oral Liquid -) 250 mg PEG BID [facility] Last Admin: 04/19/18 09:12 Dose: 250 mg Metronidazole (Flagyl 500mg Premixed Ivpb -) 500 mg in 100 mls @ 100 mls/hr IVPB Q8H-IV [facility] Last Admin: 04/19/18 09:13 Dose: 100 mls/hr Ibuprofen (Caldolor Injection -) 600 mg IVPB Q6H PRN PRN Reason: PAIN LEVEL 1 - 3 Last Admin: 04/19/18 09:07 Dose: 600 mg Lactobacillus Acidophilus (Bacid -) 1 tab PO DAILY [facility] Last Admin: 04/19/18 09:06 Dose: 1 tab Mirtazapine (Remeron -) 15 mg PEG HS [facility] Last Admin: 04/18/18 22:00 Dose: 15 mg Ondansetron HCl (Zofran Injection) 4 mg IVPUSH Q6H PRN PRN Reason: NAUSEA AND/OR VOMITING Phenol/Menthol (Chloraseptic -) 1 spray MM Q6HPO PRN PRN Reason: SORE THROAT Last Admin: 04/17/18 15:48 Dose: 1 spray Potassium Chloride (Potassium Chloride Oral Liquid) 40 meq GT Q6H [facility] Stop: 04/19/18 16:01 Prednisone (Deltasone -) 40 mg PO DAILY [facility] Last Admin: 04/19/18 09:06 Dose: 40 mg Raltegravir (Isentress -) 400 mg NR BID [facility] Last Admin: 04/19/18 09:12 Dose: 400 mg Ranitidine HCl (Zantac Oral Solution -) 150 mg PEG BID [facility] Last Admin: 04/19/18 09:12 Dose: 150 mg Sertraline HCl (Zoloft -) 50 mg PO DAILY [facility] Last Admin: 04/19/18 09:05 Dose: 50 mg Tramadol HCl (Ultram -) 50 mg PO Q6H PRN PRN Reason: PAIN LEVEL 6-10 Last Admin: 04/19/18 06:33 Dose: 50 mg Vancomycin HCl (Vancomycin Oral Solution) 125 mg PO Q6HPO [facility] Last Admin: 04/19/18 06:29 Dose: 125 mg Zolpidem Tartrate (Ambien -) 5 mg PO HS PRN PRN Reason: INSOMNIA Last Admin: 04/18/18 22:00 Dose: 5 mg - Objective Vital Signs: Vital Signs Temperature 99.2 F 04/19/18 06:00 Pulse Rate 95 H 18 09:37 Respiratory Rate 18 04/19/18 06:00 Blood Pressure 131/86 04/19/18 06:00 O2 Sat by Pulse Oximetry (%) 96 04/19/18 09:37 Constitutional: Yes: Cachectic Cardiovascular: Yes: Regular Rate and Rhythm, S1, S2 Respiratory: Yes: Rhonchi Gastrointestinal: Yes: Normal Bowel Sounds, Soft. No: Tenderness Edema: No Labs: CBC, BMP 04/19/18 08:30 04/19/18 08:30 INR, PTT INR 1.02 (0.83-1.09) 04/09/18 09:27 Assessment/Plan Fever Leukocytosis Worsening Pneumonia Respiratory failure Hx Klebsiella bacteremia AIDS Resume antibiotic coverage, nosocomial pathogens IV vancomycin/ meropenem Continue Vancomycin po /flagyl IV Repeat CT chest
[2018-04-19] MEDS ORDERED: VANCOMYCIN 1,000 MG in DEXTROSE 5%-WATER - 250 ML IVPB ONE (15:00)
[2018-04-19] MEDS: ALPRAZolam 0.25 MG TABLET PO SCH ×2 (15:08→21:01)
[2018-04-19] MEDS: MEROPENEM 1 GM in DEXTROSE 5%-WATER 100 ML IVPB SCH ×2 (18:14→19:10)
[2018-04-19] MEDS: MIRTAZAPINE 15 MG TABLET (FP) PEG SCH (21:01)
[2018-04-20] MEDS: PHENOL 177 ML SPRAY BOTTLE MM PRN (00:14)
[2018-04-20] MEDS: traMADol HCL 50 MG TABLET PO PRN ×2 (00:14→22:11)
[2018-04-20] MEDS: ZOLPIDEM TARTRATE 5 MG TABLET PO PRN (00:21)
[2018-04-20] MEDS: CIPROFLOXACIN 0.3% EYE DROPS 5 ML BOTTLE OU SCH ×11 (02:27→22:13)
[2018-04-20] MEDS: MEROPENEM 1 GM in DEXTROSE 5%-WATER 100 ML IVPB SCH ×3 (02:28→18:19)
[2018-04-20] MEDS: ACETYLCYSTEINE 20% 200MG/ML 4 ML VIAL *FOR ORAL / INH USE ONLY NEB SCH ×5 (05:13→22:00)
[2018-04-20] MEDS: ALBUTEROL SO4 0.083% IH SOL 2.5 MG/3 ML VIAL.NEB. NEB SCH ×5 (05:13→22:00)
[2018-04-20] MEDS: ALPRAZolam 0.25 MG TABLET PO SCH ×2 (05:35→15:10)
[2018-04-20] MEDS: VANCOMYCIN 250 MG/5 ML ORAL SOLUTION PO SCH ×3 (05:35→18:21)
[2018-04-20] MEDS: AMINO ACIDS/PROTEIN HYDROLYS 30 ML LIQUID.PKT GT SCH ×3 (05:36→22:12)
[2018-04-20] MEDS: CLOTRIMAZOLE 10 MG TROCHE (FP) PO SCH ×5 (05:36→22:12)
[2018-04-20] MEDS ORDERED: PT OWN MED DRAWER 7, Y5N ONE ×6 (08:24→22:18)
[2018-04-20 10:01] LABS: BASO % 0.1 % (0-2.0); EOS % 0.1 % (0-4.5); HEMATOCRIT 27.8 % (32.4-45.2); HEMOGLOBIN 9.2 GM/dL (10.7-15.3); LYMPH % 3.4 % (8-40); MCH 32.5 pg (25.7-33.7); MEAN CELL VOLUME 98.3 fl (80-96); MEAN PLT VOLUME 8.5 fl (7.5-11.1); NEUT % 94.4 % (42.8-82.8); PLATELET COUNT 397 K/MM3 (134-434); RBC 2.83 M/mm3 (3.60-5.2); RDW 15.5 % (11.6-15.6)
[2018-04-20] MEDS: LACTOBACILLUS ACIDOPHILUS 1 TABLET PO SCH (10:37)
[2018-04-20] MEDS: predniSONE 20 MG TABLET (UD) PO SCH (10:39)
[2018-04-20] MEDS: FLUTICASONE PROP 0.05% 16 GM NASAL SPRAY NS SCH (10:40)
[2018-04-20] MEDS: ETRAVIRINE 100 MG TABLET PO SCH ×2 (10:41→22:12)
[2018-04-20] MEDS: RALTEGRAVIR POTASSIUM 400 MG TAB NR SCH ×2 (10:41→22:12)
[2018-04-20] MEDS: RANITIDINE HCL 150 MG/10 ML UNIT-DOSE PEG SCH ×2 (10:43→22:12)
[2018-04-20] MEDS: EMTRICITABINE 200MG/TENOFOVIR 300MG PO SCH (10:43)
[2018-04-20] MEDS: BUDESONIDE/FORMETEROL FUMARATE 160/4.5 mcg INHALER IH SCH ×2 (10:43→22:41)
[2018-04-20] MEDS: SERTRALINE HCL 50 MG TABLET (FP) PO SCH (10:44)
[2018-04-20] MEDS: GABAPENTIN 250 MG/5 ML ORAL SOLUTION, 470 ML BOTTLE PEG SCH ×2 (10:45→22:12)
[2018-04-20 11:07] LABS: ALBUMIN 1.6 g/dl (3.4-5.0); ALK PHOS 75 U/L (45-117); ANION GAP 12 MMOL/L (8-16); BILIRUBIN,TOTAL 0.2 mg/dL (0.2-1); BLOOD UREA NITROGEN 30 mg/dL (7-18); CALCIUM 7.9 mg/dL (8.5-10.1); CHLORIDE 107 mmol/L (98-107); CO2 28 mmol/L (21-32); CREATININE 0.3 mg/dL (0.55-1.3); GLUCOSE,RANDOM 183 mg/dL (74-106); MAGNESIUM 2.2 mg/dL (1.8-2.4); POTASSIUM 3.2 mmol/L (3.5-5.1); SGOT/AST 15 U/L (15-37); SGPT/ALT 16 U/L (13-61); SODIUM 147 mmol/L (136-145); TOT PROT 4.9 g/dl (6.4-8.2)
--- NOTE | 2018-04-20 11:17 | PN ---
Physical Exam: SUBJECTIVE: Patient seen and examined at the bedside. Ambulating, feeling better today. Discussed with patient discharge plan when she is more stable. Wants to go home, does not want to go to nursing facility. Asking for additional hours for her home health aide. For now will continue to monitor her for improvement on antibiotics. Monitor fever curve. OBJECTIVE: wbc still elevated chest ct with pulmonary cavitation Vital Signs Period Temp Pulse Resp BP Sys/Lisa Pulse Ox Last 24 Hr 98.2 F 103 17-18 102/68 92 GENERAL: The patient is awake, alert, and fully oriented, in no acute distress. HEAD: Normal with no signs of trauma. EYES: PERRL, extraocular movements intact, sclera anicteric, conjunctiva clear. No ptosis. ENT: trach collar, frequently suctions herself NECK: Trachea midline, full range of motion, supple. LUNGS: Breath sounds with bilateral scattered rhonchi. HEART: Regular rate and rhythm ABDOMEN: + peg tube EXTREMITIES: no edema. NEUROLOGICAL: Normal speech, steady gait PSYCH: Normal mood, normal affect. SKIN: Warm, dry, normal turgor, no rashes or lesions noted Laboratory Results - last 24 hr 04/20/18 04/20/18 09:50 09:50 WBC 21.0 H RBC 2.83 L Hgb 9.2 L Hct 27.8 L MCV 98.3 H MCH 32.5 MCHC 33.0 RDW 15.5 Plt Count 397 D MPV 8.5 Absolute Neuts (auto) 19.8 H Neutrophils % 94.4 H Lymphocytes % 3.4 L D Monocytes % 2.0 L Eosinophils % 0.1 Basophils % 0.1 D Nucleated RBC % 0 Sodium 147 H Potassium 3.2 L Chloride 107 Carbon Dioxide 28 Anion Gap 12 BUN 30 H Creatinine 0.3 L Creat Clearance w eGFR > 60 Random Glucose 183 H Calcium 7.9 L Magnesium 2.2 Total Bilirubin 0.2 AST 15 ALT 16 Alkaline Phosphatase 75 Total Protein 4.9 L Albumin 1.6 L Active Medications Generic Name Dose Route Start Last Admin Trade Name Freq PRN Reason Stop Dose Admin Acetaminophen 650 mg 04/03/18 15:41 04/18/18 05:52 Tylenol - PO 650 mg Q6H PRN Administration FEVER Acetylcysteine 200 mg 04/03/18 10:30 04/20/18 09:30 Mucomyst 20 Oral / Inh Use Only* NEB 200 mg Q4HWA RAZ Administration Albuterol Sulfate 1 amp 04/17/18 14:00 04/20/18 09:30 Ventolin 0.083% Nebulizer Soln - NEB 1 amp Q4HWA RAZ Administration Alprazolam 0.25 mg 04/19/18 14:00 04/20/18 05:35 Xanax - PO 0.25 mg TID RAZ Administration Amino Acids 30 ml 04/13/18 14:45 04/20/18 05:36 Prosource No Carb Liquid Pkt GT 30 ml TID RAZ Administration Budesonide/Formoterol Fumarate 2 puff 04/03/18 22:00 04/20/18 10:43 Symbicort 160/4.5mcg - IH 2 puff BID RAZ Administration Ciprofloxacin 1 drop 04/19/18 11:42 04/20/18 10:38 Ciloxan 0.3% Eye Drops -- OU 04/21/18 11:14 1 drop Q2H RAZ Administration Ciprofloxacin 1 drop 04/21/18 14:00 Ciloxan 0.3% Eye Drops - OU 04/26/18 10:01 Q4HWA RAZ Clotrimazole 10 mg 04/17/18 18:00 04/20/18 10:42 Mycelex Lasha's - PO 10 mg 5XD RAZ Administration Emtricitabine/Tenofovir 1 tab 04/04/18 10:00 04/20/18 10:43 Truvada PO 1 tab DAILY RAZ Administration Etravirine 100 mg 04/03/18 18:30 04/20/18 10:41 Intelence - PO 100 mg BIDPC RAZ Administration Fluticasone Propionate 1 spray 04/04/18 10:00 04/20/18 10:40 Flonase - NS 1 spray DAILY RAZ Administration Gabapentin 250 mg 04/03/18 22:00 04/20/18 10:45 Neurontin Oral Liquid - PEG 250 mg BID RAZ Administration Metronidazole 500 mg in 100 mls @ 100 mls/hr 04/17/18 18:00 04/20/18 10:39 Flagyl 500mg Premixed Ivpb - IVPB 100 mls/hr Q8H-IV RAZ Administration Meropenem 1 gm/ Dextrose 100 mls @ 200 mls/hr 04/19/18 14:30 04/20/18 10:42 IVPB 200 mls/hr Q8H-IV RAZ Administration Ibuprofen 600 mg 04/15/18 16:39 04/19/18 20:56 Caldolor Injection - IVPB 600 mg Q6H PRN Administration PAIN LEVEL 1 - 3 Lactobacillus Acidophilus 1 tab 04/03/18 10:45 04/20/18 10:37 Bacid - PO 1 tab DAILY RAZ Administration Mirtazapine 15 mg 04/03/18 22:00 04/19/18 21:01 Remeron - PEG 15 mg HS RAZ Administration Ondansetron HCl 4 mg 04/11/18 19:55 Zofran Injection IVPUSH Q6H PRN NAUSEA AND/OR VOMITING Phenol/Menthol 1 spray 04/17/18 13:57 04/20/18 00:14 Chloraseptic - MM 1 spray Q6HPO PRN Administration SORE THROAT Potassium Chloride 40 meq 04/20/18 11:16 Potassium Chloride Oral Liquid GT 04/20/18 11:17 ONCE ONE Prednisone 40 mg 04/18/18 10:00 04/20/18 10:39 Deltasone - PO 40 mg DAILY RAZ Administration Raltegravir 400 mg 04/03/18 22:00 04/20/18 10:41 Isentress - NR 400 mg BID RAZ Administration Ranitidine HCl 150 mg 04/19/18 10:00 04/20/18 10:43 Zantac Oral Solution - PEG 150 mg BID RAZ Administration Sertraline HCl 50 mg 04/04/18 10:00 04/20/18 10:44 Zoloft - PO 50 mg DAILY RAZ Administration Tramadol HCl 50 mg 04/16/18 14:13 04/20/18 00:14 Ultram - PO 50 mg Q6H PRN Administration PAIN LEVEL 6-10 Vancomycin HCl 125 mg 04/15/18 18:00 04/20/18 05:35 Vancomycin Oral Solution PO 125 mg Q6HPO RAZ Administration Zolpidem Tartrate 5 mg 04/17/18 21:59 04/20/18 00:21 Ambien - PO 5 mg HS PRN Administration INSOMNIA imaging: chest xray 3: bilateral pleural effusions chest xray 4: chest xray with slight decrease in pleural effusions chest xray 04/09: s/p thora with slight decrease in pleural fluid chest xray 04/11: improvement, better aeration CTAP 04/11/18: Abdomen/pelvis CT w/o contrast with bibasal consolidation/ pneumonia with small pericardial effusion tiny non obstructing renal stones, and significant hepatomegaly. CT 04/19/2018: increased size and extent of a large left upper lobe infiltrate seen with interval development of cavitation. small bilateral pleural effusions. ASSESSMENT/PLAN: Patient is a 47 year old female with a significant past medical history of +HIV x 18 years, laryngeal cancer with a chronic trach, PEG tube, hepatitis B and failure to thrive. Patient presented to the ED on 03/28/2018 with symptoms of nausea, vomiting, diarrhea, cough and fever. Hospitalization complicated for acute shortness of breath and patient was transferred to the ICU on 03/30 and placed on a mechanical ventilator. She was up for discharged apx 1 week ago, but developed a fever of 104.6 and was found to have extensive bilateral pneumonia. She was restarted on broad spectrum antibiotics of Zosyn and Vanco. her blood and urine cultures have been repeated and continue to be negative to date. On 04/13/2018, her stool has postive for cdiff, antigen and was started on PO vanco. She is currently on meropenem IV and flagyl IV and vancomycin PO. Pulmonary: Hospital acquired pneumonia: as noted on CT. On Meropenem. Ct noted to have cavitary pneumonia, not likely TB per pulmonary. On meropenem, Chest PT and scheduled duonebs. Afebrile currently. WBC still elevated at 20. Chronic trach/shortness of breath/Asthma/COPD/pneumonia: On scheduled duonebs with mucomyst and chest percussion. Pleural effusions: Bilateral pleural effusions seen on CT scan. Incentive spriometer. ID: HIV: Continue home antiviral triple therapy. Card: chest pain, resolved: trops negative, small pericardial effusion. cardiology following. tHypotension: monitor in the setting of pneumonia/sepsis. Onc: Laryngeal carcinoma, has chronic trach and feeds via peg tube. Needs MBS to evaluate swallowing function. Seen by speech and swallow. Pt made aware that MBS could not be done until patient has her trach changed and provox can be used. On GT feedings of high calorie boost which is her home nutrition. new GT replaced .11.18 by GI, but port too small, replaced by IR on . Psyche: Anxiety history. klonopin increased to q6 prn. Endocrine: hmg a1c 6.2, boderline, monitor for now. prophy: Heparin tid aspiration precautions. physical therapy once infection improves fen GT feeds, given boost supplements via gravity and prosource bid (apx 3k per day ) monitor electrolytes prosource zantac On continuous pulse monitoring. Visit type - Emergency Visit Emergency Visit: Yes ED Registration Date: 03/28/18 Care time: The patient presented to the Emergency Department on the above date and was hospitalized for further evaluation of their emergent condition. - New Patient This patient is new to me today: No - Critical Care Critical Care patient: No - Discharge Referral Referred to [facility] Med P.C.: No
[2018-04-20] MEDS ORDERED: POTASSIUM CHLORIDE ORAL LIQUID 20 MEQ/15 ML GT ONE (11:30)
[2018-04-20 12:01] LABS: ANISOCYTOSIS 1+
[2018-04-20 12:02] LABS: MACROCYTOSIS 1+
--- NOTE | 2018-04-20 12:08 | PN ---
Progress Note, Physician History of Present Illness: pulmonary alert,less congested,afebrile - Current Medication List Current Medications: Active Medications Acetaminophen (Tylenol -) 650 mg PO Q6H PRN PRN Reason: FEVER Last Admin: 04/18/18 05:52 Dose: 650 mg Acetylcysteine (Mucomyst 20 Oral / Inh Use Only*) 200 mg NEB Q4HWA [facility] Last Admin: 04/20/18 09:30 Dose: 200 mg Albuterol Sulfate (Ventolin 0.083% Nebulizer Soln -) 1 amp NEB Q4HWA [facility] Last Admin: 04/20/18 09:30 Dose: 1 amp Alprazolam (Xanax -) 0.25 mg PO TID [facility] Last Admin: 04/20/18 05:35 Dose: 0.25 mg Amino Acids (Prosource No Carb Liquid Pkt) 30 ml GT TID [facility] Last Admin: 04/20/18 05:36 Dose: 30 ml Budesonide/Formoterol Fumarate (Symbicort 160/4.5mcg -) 2 puff IH BID [facility] Last Admin: 04/20/18 10:43 Dose: 2 puff Ciprofloxacin (Ciloxan 0.3% Eye Drops --) 1 drop OU Q2H [facility] Stop: 04/21/18 11:14 Last Admin: 04/20/18 10:38 Dose: 1 drop Ciprofloxacin (Ciloxan 0.3% Eye Drops -) 1 drop OU Q4HWA [facility] Stop: 04/26/18 10:01 Clotrimazole (Mycelex Lasha's -) 10 mg PO 5XD [facility] Last Admin: 04/20/18 10:42 Dose: 10 mg Emtricitabine/Tenofovir (Truvada) 1 tab PO DAILY [facility] Last Admin: 04/20/18 10:43 Dose: 1 tab Etravirine (Intelence -) 100 mg PO BIDPC [facility] Last Admin: 04/20/18 10:41 Dose: 100 mg Fluticasone Propionate (Flonase -) 1 spray NS DAILY [facility] Last Admin: 04/20/18 10:40 Dose: 1 spray Gabapentin (Neurontin Oral Liquid -) 250 mg PEG BID [facility] Last Admin: 04/20/18 10:45 Dose: 250 mg Metronidazole (Flagyl 500mg Premixed Ivpb -) 500 mg in 100 mls @ 100 mls/hr IVPB Q8H-IV [facility] Last Admin: 04/20/18 10:39 Dose: 100 mls/hr Meropenem 1 gm/ Dextrose 100 mls @ 200 mls/hr IVPB Q8H-IV [facility] Last Admin: 04/20/18 10:42 Dose: 200 mls/hr Ibuprofen (Caldolor Injection -) 600 mg IVPB Q6H PRN PRN Reason: PAIN LEVEL 1 - 3 Last Admin: 04/19/18 20:56 Dose: 600 mg Lactobacillus Acidophilus (Bacid -) 1 tab PO DAILY [facility] Last Admin: 04/20/18 10:37 Dose: 1 tab Mirtazapine (Remeron -) 15 mg PEG HS [facility] Last Admin: 04/19/18 21:01 Dose: 15 mg Ondansetron HCl (Zofran Injection) 4 mg IVPUSH Q6H PRN PRN Reason: NAUSEA AND/OR VOMITING Phenol/Menthol (Chloraseptic -) 1 spray MM Q6HPO PRN PRN Reason: SORE THROAT Last Admin: 04/20/18 00:14 Dose: 1 spray Prednisone (Deltasone -) 40 mg PO DAILY [facility] Last Admin: 04/20/18 10:39 Dose: 40 mg Raltegravir (Isentress -) 400 mg NR BID [facility] Last Admin: 04/20/18 10:41 Dose: 400 mg Ranitidine HCl (Zantac Oral Solution -) 150 mg PEG BID [facility] Last Admin: 04/20/18 10:43 Dose: 150 mg Sertraline HCl (Zoloft -) 50 mg PO DAILY [facility] Last Admin: 04/20/18 10:44 Dose: 50 mg Tramadol HCl (Ultram -) 50 mg PO Q6H PRN PRN Reason: PAIN LEVEL 6-10 Last Admin: 04/20/18 00:14 Dose: 50 mg Vancomycin HCl (Vancomycin Oral Solution) 125 mg PO Q6HPO [facility] Last Admin: 04/20/18 05:35 Dose: 125 mg Zolpidem Tartrate (Ambien -) 5 mg PO HS PRN PRN Reason: INSOMNIA Last Admin: 04/20/18 00:21 Dose: 5 mg - Objective Vital Signs: Vital Signs Temperature 98.2 F 04/20/18 00:00 Pulse Rate 103 H 04/19/18 22:00 Respiratory Rate 17 04/20/18 00:00 Blood Pressure 102/68 04/19/18 22:00 O2 Sat by Pulse Oximetry (%) 92 L 04/19/18 21:00 Constitutional: Yes: Calm, Thin Eyes: Yes: WNL HENT: Yes: WNL Neck: Yes: Supple (trach) Cardiovascular: Yes: Regular Rate and Rhythm, S1, S2 Respiratory: Yes: Rhonchi (scattered shania rhonchi) Gastrointestinal: Yes: Normal Bowel Sounds, Soft Extremities: Yes: WNL Edema: No Labs: CBC, BMP 04/20/18 09:50 04/20/18 09:50 INR, PTT INR 1.02 (0.83-1.09) 04/09/18 09:27 - ....Imaging Cat Scan: Report Reviewed, Image Reviewed (amber consolidation with cavitation, lll infiltrate) Problem List - Problems (1) Acute on chronic respiratory failure with hypoxia and hypercapnia Code(s): J96.21 - ACUTE AND CHRONIC RESPIRATORY FAILURE WITH HYPOXIA; J96.22 - ACUTE AND CHRONIC RESPIRATORY FAILURE WITH HYPERCAPNIA (2) Laryngeal carcinoma Code(s): C32.9 - MALIGNANT NEOPLASM OF LARYNX, UNSPECIFIED (3) Pneumonia Code(s): J18.9 - PNEUMONIA, UNSPECIFIED ORGANISM Qualifiers: Pneumonia type: due to unspecified organism Laterality: bilateral Lung location: unspecified part of lung Qualified Code(s): J18.9 - Pneumonia, unspecified organism (4) AIDS Code(s): B20 - HUMAN IMMUNODEFICIENCY VIRUS [HIV] DISEASE (5) Difficulty breathing Code(s): R06.89 - OTHER ABNORMALITIES OF BREATHING (6) HIV (human immunodeficiency virus infection) Code(s): Z21 - ASYMPTOMATIC HUMAN IMMUNODEFICIENCY VIRUS INFECTION STATUS (7) Head and neck cancer Code(s): C76.0 - MALIGNANT NEOPLASM OF HEAD, FACE AND NECK Assessment/Plan A/P Acute on Chronic Hypoxic Respiratory Failure Bilateral Pneumonia ARDS resolving Klebsiella Bacteremia Sepsis HIV/AIDS h/o Laryngeal Ca s/p trach/PEG Pleural effusion exudate likely uncomplicated parapneumonic effusion Fever - oantibiotics as per ID - continue bacid - inhaled bronchodilators with mucomyst - pain control - chest PT/bed percussion - taper Fio2 to keep SpO2 >90% - continue ART - DVT prophylaxis - steroids - replete augustus MAYER
[2018-04-20] MEDS: IBUPROFEN 800 MG/8 ML IJ IVPB PRN (12:37)
--- NOTE | 2018-04-20 22:00 | PN ---
Progress Note, Physician Chief Complaint: Pt, A&Ox3; coughing frequently ("thick" phelgm); chest pain only with prolonged coughing. History of Present Illness: The patient is a 47 year old female with a history of laryngeal cancer s/p trach and peg, AIDs, HIV, Hep B, failure to thrive who presents for evaluation of difficulty breath ing, vomiting, and chest pain. The patient reports a 4 day history of worsening right sided chest pain, nausea, vomiting and difficulty breathing prompting her presentation to the ED for further evaluation. She notes that the chest pain initially was sharp, but now is a tightness worse with deep inspiration. She notes purulent cough as well with increased mucus from her trach. She has also noted fevers to 103 at home that has been minimally responsive to tylenol. The patient otherwise denies chills, abdominal pain, or changes with urination or bowel movements. Asked to see pt due to sudden central strong chest tightness that occured last night after pt had a prolonged coughing spell. The discomfor lasted for a few seconds. She denies having a hx of chest pain except with or after cough. She usually walks rapidly and "outwalks everybody", often walking a few blocks in a day, though gets fatigued walking uphill. - Current Medication List Current Medications: Active Medications Acetaminophen (Tylenol -) 650 mg PO Q6H PRN PRN Reason: FEVER Last Admin: 04/18/18 05:52 Dose: 650 mg Acetylcysteine (Mucomyst 20 Oral / Inh Use Only*) 200 mg NEB Q4HWA [facility] Last Admin: 04/20/18 17:57 Dose: 200 mg Albuterol Sulfate (Ventolin 0.083% Nebulizer Soln -) 1 amp NEB Q4HWA [facility] Last Admin: 04/20/18 17:58 Dose: 1 amp Alprazolam (Xanax -) 0.25 mg PO Q6H PRN PRN Reason: ANXIETY Amino Acids (Prosource No Carb Liquid Pkt) 30 ml GT TID [facility] Last Admin: 04/20/18 15:11 Dose: 30 ml Budesonide/Formoterol Fumarate (Symbicort 160/4.5mcg -) 2 puff IH BID [facility] Last Admin: 04/20/18 10:43 Dose: 2 puff Ciprofloxacin (Ciloxan 0.3% Eye Drops --) 1 drop OU Q2H [facility] Stop: 04/21/18 11:14 Last Admin: 04/20/18 18:23 Dose: 1 drop Ciprofloxacin (Ciloxan 0.3% Eye Drops -) 1 drop OU Q4HWA [facility] Stop: 04/26/18 10:01 Clotrimazole (Mycelex Lasha's -) 10 mg PO 5XD [facility] Last Admin: 04/20/18 18:20 Dose: 10 mg Emtricitabine/Tenofovir (Truvada) 1 tab PO DAILY [facility] Last Admin: 04/20/18 10:43 Dose: 1 tab Etravirine (Intelence -) 100 mg PO BIDPC [facility] Last Admin: 04/20/18 10:41 Dose: 100 mg Fluticasone Propionate (Flonase -) 1 spray NS DAILY [facility] Last Admin: 04/20/18 10:40 Dose: 1 spray Gabapentin (Neurontin Oral Liquid -) 250 mg PEG BID [facility] Last Admin: 04/20/18 10:45 Dose: 250 mg Metronidazole (Flagyl 500mg Premixed Ivpb -) 500 mg in 100 mls @ 100 mls/hr IVPB Q8H-IV [facility] Last Admin: 04/20/18 18:21 Dose: 100 mls/hr Meropenem 1 gm/ Dextrose 100 mls @ 200 mls/hr IVPB Q8H-IV [facility] Last Admin: 04/20/18 18:19 Dose: 200 mls/hr Ibuprofen (Caldolor Injection -) 600 mg IVPB Q6H PRN PRN Reason: PAIN LEVEL 1 - 3 Last Admin: 04/20/18 12:37 Dose: 600 mg Lactobacillus Acidophilus (Bacid -) 1 tab PO DAILY [facility] Last Admin: 04/20/18 10:37 Dose: 1 tab Mirtazapine (Remeron -) 15 mg PEG HS [facility] Last Admin: 04/19/18 21:01 Dose: 15 mg Ondansetron HCl (Zofran Injection) 4 mg IVPUSH Q6H PRN PRN Reason: NAUSEA AND/OR VOMITING Phenol/Menthol (Chloraseptic -) 1 spray MM Q6HPO PRN PRN Reason: SORE THROAT Last Admin: 04/20/18 00:14 Dose: 1 spray Prednisone (Deltasone -) 40 mg PO DAILY [facility] Last Admin: 04/20/18 10:39 Dose: 40 mg Raltegravir (Isentress -) 400 mg NR BID [facility] Last Admin: 04/20/18 10:41 Dose: 400 mg Ranitidine HCl (Zantac Oral Solution -) 150 mg PEG BID [facility] Last Admin: 04/20/18 10:43 Dose: 150 mg Sertraline HCl (Zoloft -) 50 mg PO DAILY [facility] Last Admin: 04/20/18 10:44 Dose: 50 mg Tramadol HCl (Ultram -) 50 mg PO Q6H PRN PRN Reason: PAIN LEVEL 6-10 Last Admin: 04/20/18 00:14 Dose: 50 mg Vancomycin HCl (Vancomycin Oral Solution) 125 mg PO Q6HPO [facility] Last Admin: 04/20/18 18:21 Dose: 125 mg Zolpidem Tartrate (Ambien -) 5 mg PO HS PRN PRN Reason: INSOMNIA Last Admin: 04/20/18 00:21 Dose: 5 mg - Objective Vital Signs: Vital Signs Temperature 99.4 F 04/20/18 17:00 Pulse Rate 106 H 04/20/18 17:00 Respiratory Rate 20 04/20/18 17:00 Blood Pressure 97/52 04/20/18 17:00 O2 Sat by Pulse Oximetry (%) 92 L 04/20/18 09:00 Constitutional: Yes: Calm Eyes: Yes: WNL HENT: Yes: WNL Neck: Yes: Other (trach) Cardiovascular: Yes: S1, S2 Labs: CBC, BMP 04/20/18 09:50 04/20/18 09:50 INR, PTT INR 1.02 (0.83-1.09) 04/09/18 09:27 Problem List - Problems (1) Acute on chronic respiratory failure with hypoxia and hypercapnia Assessment/Plan: tracheostomy. On bronchodilators, O2, steroids per pumonary. Code(s): J96.21 - ACUTE AND CHRONIC RESPIRATORY FAILURE WITH HYPOXIA; J96.22 - ACUTE AND CHRONIC RESPIRATORY FAILURE WITH HYPERCAPNIA (2) Laryngeal carcinoma Assessment/Plan: on O2, bronchodilators, steroids per pumonologist. Code(s): C32.9 - MALIGNANT NEOPLASM OF LARYNX, UNSPECIFIED (3) AIDS Assessment/Plan: medication regimen per ID. Nutrition, physical rehabilitation. Maintain hydration. Code(s): B20 - HUMAN IMMUNODEFICIENCY VIRUS [HIV] DISEASE (4) Tobacco dependence Code(s): F17.200 - NICOTINE DEPENDENCE, UNSPECIFIED, UNCOMPLICATED (5) Tracheostomy dependence Code(s): Z93.0 - TRACHEOSTOMY STATUS (6) Atypical chest pain Assessment/Plan: Chest pain after coughing; no prior hx chest pain. She walks relatively frequently, and denies exertional chest discomfort. No acute STT changes on EKG. TNI <0.02 on multiple checks. Cholesterol well-controlled. TSH WNL. ECHO 2016: normal LVEF; small pericardial effusion without hemodynamic compromise. Code(s): R07.89 - OTHER CHEST PAIN (7) Acute on chronic diastolic CHF (congestive heart failure) Assessment/Plan: Dyspnea on mild exertion. Pleural effusion on CXR. F/u BNP 291 (was 212.6 in 2016). ECHO: normal LVEF; small pericardial effusion without hemodynamic compromise. F/u BUN/Cr, Is and Os, daily weight, electrolytes. Code(s): I50.33 - ACUTE ON CHRONIC DIASTOLIC (CONGESTIVE) HEART FAILURE (8) Pericardial effusion Assessment/Plan: small pericardial effusion; no hemodynamic compromise; unchanged from 04/08/18 to 04/12/18. Normal LVEF Code(s): I31.3 - PERICARDIAL EFFUSION (NONINFLAMMATORY) (9) Leukocytosis Assessment/Plan: Elevated WBCs, with periodic low-grade fevers. On multiple antibiotics per ID. F/u cultures. Maintain hydration. Code(s): D72.829 - ELEVATED WHITE BLOOD CELL COUNT, UNSPECIFIED (10) Hypokalemia Assessment/Plan: replete; f/u level. Code(s): E87.6 - HYPOKALEMIA (11) Anxiety Code(s): F41.9 - ANXIETY DISORDER, UNSPECIFIED
[2018-04-20] MEDS: MIRTAZAPINE 15 MG TABLET (FP) PEG SCH (22:11)
[2018-04-21] MEDS: VANCOMYCIN 250 MG/5 ML ORAL SOLUTION PO SCH ×4 (00:30→17:46)
[2018-04-21] MEDS: CIPROFLOXACIN 0.3% EYE DROPS 5 ML BOTTLE OU SCH ×5 (00:30→10:33)
[2018-04-21] MEDS ORDERED: PT OWN MED DRAWER 7, Y5N ONE ×5 (00:52→09:47)
[2018-04-21] MEDS: MEROPENEM 1 GM in DEXTROSE 5%-WATER 100 ML IVPB SCH ×3 (01:01→17:54)
[2018-04-21] MEDS: ALPRAZolam 0.25 MG TABLET PO PRN ×3 (04:11→21:27)
[2018-04-21] MEDS: ALBUTEROL SO4 0.083% IH SOL 2.5 MG/3 ML VIAL.NEB. NEB SCH ×5 (05:30→21:38)
[2018-04-21] MEDS: ACETYLCYSTEINE 20% 200MG/ML 4 ML VIAL *FOR ORAL / INH USE ONLY NEB SCH ×5 (05:30→21:38)
[2018-04-21] MEDS: AMINO ACIDS/PROTEIN HYDROLYS 30 ML LIQUID.PKT GT SCH ×3 (06:33→21:27)
[2018-04-21] MEDS: CLOTRIMAZOLE 10 MG TROCHE (FP) PO SCH ×5 (06:33→22:00)
[2018-04-21 06:49] LABS: BASO % 0.2 % (0-2.0); EOS % 0.1 % (0-4.5); HEMATOCRIT 26.6 % (32.4-45.2); HEMOGLOBIN 8.6 GM/dL (10.7-15.3); LYMPH % 8.6 % (8-40); MCH 31.8 pg (25.7-33.7); MCHC 32.3 g/dl (32.0-36.0); MEAN CELL VOLUME 98.6 fl (80-96); MEAN PLT VOLUME 8.5 fl (7.5-11.1); MONO % 3.1 % (3.8-10.2); PLATELET COUNT 381 K/MM3 (134-434); RDW 14.9 % (11.6-15.6); WHITE BLOOD COUNT 12.9 K/mm3 (4.0-10.0)
[2018-04-21 07:21] LABS: ALBUMIN 1.6 g/dl (3.4-5.0); ANION GAP 8 MMOL/L (8-16); CHLORIDE 108 mmol/L (98-107); CO2 30 mmol/L (21-32); CREATININE 0.2 mg/dL (0.55-1.3); GLUCOSE,RANDOM 97 mg/dL (74-106); POTASSIUM 3.7 mmol/L (3.5-5.1); SGOT/AST 13 U/L (15-37); SGPT/ALT 15 U/L (13-61); SODIUM 146 mmol/L (136-145)
[2018-04-21 09:08] LABS: ALK PHOS 64 U/L (45-117); BILIRUBIN,TOTAL 0.2 mg/dL (0.2-1); TOT PROT 4.8 g/dl (6.4-8.2)
[2018-04-21] MEDS: RALTEGRAVIR POTASSIUM 400 MG TAB NR SCH ×2 (09:39→21:28)
[2018-04-21] MEDS: predniSONE 20 MG TABLET (UD) PO SCH (09:39)
[2018-04-21] MEDS: RANITIDINE HCL 150 MG/10 ML UNIT-DOSE PEG SCH ×2 (09:42→22:00)
[2018-04-21] MEDS: SERTRALINE HCL 50 MG TABLET (FP) PO SCH (09:43)
[2018-04-21] MEDS: LACTOBACILLUS ACIDOPHILUS 1 TABLET PO SCH (09:47)
[2018-04-21] MEDS: traMADol HCL 50 MG TABLET PO PRN ×2 (09:47→17:53)
[2018-04-21] MEDS: EMTRICITABINE 200MG/TENOFOVIR 300MG PO SCH (09:48)
[2018-04-21] MEDS: ETRAVIRINE 100 MG TABLET PO SCH ×2 (09:50→17:47)
[2018-04-21 10:24] LABS: BLOOD UREA NITROGEN 31 mg/dL (7-18); CALCIUM 7.8 mg/dL (8.5-10.1); MAGNESIUM 2.2 mg/dL (1.8-2.4)
[2018-04-21] MEDS: FLUTICASONE PROP 0.05% 16 GM NASAL SPRAY NS SCH (10:33)
[2018-04-21] MEDS: GABAPENTIN 250 MG/5 ML ORAL SOLUTION, 470 ML BOTTLE PEG SCH ×2 (10:33→21:26)
[2018-04-21] MEDS: BUDESONIDE/FORMETEROL FUMARATE 160/4.5 mcg INHALER IH SCH ×2 (10:43→21:30)
--- NOTE | 2018-04-21 12:25 | PN ---
Progress Note (short form) - Note Progress Note: Day #2 of Meropenem for HAP. Breathing seems stable on Trach collar. Intake & Output 04/18/18 04/19/18 04/20/18 04/21/18 23:59 23:59 23:59 23:59 Intake Total 2593 1694 0 200 Balance 2593 1694 2049 200 Last Vital Signs Temp Pulse Resp BP Pulse Ox 100.0 F H 101 H 20 112/79 95 04/21/18 10:00 04/21/18 10:28 04/21/18 11:36 04/21/18 10:00 04/21/18 11:36 Active Medications Acetaminophen (Tylenol -) 650 mg PO Q6H PRN PRN Reason: FEVER Last Admin: 04/18/18 05:52 Dose: 650 mg Acetylcysteine (Mucomyst 20 Oral / Inh Use Only*) 200 mg NEB Q4HWA [facility] Last Admin: 04/21/18 09:50 Dose: 200 mg Albuterol Sulfate (Ventolin 0.083% Nebulizer Soln -) 1 amp NEB Q4HWA [facility] Last Admin: 04/21/18 09:50 Dose: 1 amp Alprazolam (Xanax -) 0.25 mg PO Q6H PRN PRN Reason: ANXIETY Last Admin: 04/21/18 10:05 Dose: 0.25 mg Amino Acids (Prosource No Carb Liquid Pkt) 30 ml GT TID [facility] Last Admin: 04/21/18 06:33 Dose: 30 ml Budesonide/Formoterol Fumarate (Symbicort 160/4.5mcg -) 2 puff IH BID [facility] Last Admin: 04/21/18 10:43 Dose: 2 puff Ciprofloxacin (Ciloxan 0.3% Eye Drops -) 1 drop OU Q4HWA [facility] Stop: 04/26/18 10:01 Clotrimazole (Mycelex Lasha's -) 10 mg PO 5XD [facility] Last Admin: 04/21/18 09:41 Dose: 10 mg Emtricitabine/Tenofovir (Truvada) 1 tab PO DAILY [facility] Last Admin: 04/21/18 09:48 Dose: 1 tab Etravirine (Intelence -) 100 mg PO BIDPC [facility] Last Admin: 04/21/18 09:50 Dose: 100 mg Fluticasone Propionate (Flonase -) 1 spray NS DAILY [facility] Last Admin: 04/21/18 10:33 Dose: 1 spray Gabapentin (Neurontin Oral Liquid -) 250 mg PEG BID [facility] Last Admin: 04/21/18 10:33 Dose: 250 mg Metronidazole (Flagyl 500mg Premixed Ivpb -) 500 mg in 100 mls @ 100 mls/hr IVPB Q8H-IV [facility] Last Admin: 04/21/18 09:38 Dose: 100 mls/hr Meropenem 1 gm/ Dextrose 100 mls @ 200 mls/hr IVPB Q8H-IV [facility] Last Admin: 04/21/18 09:42 Dose: 200 mls/hr Ibuprofen (Caldolor Injection -) 600 mg IVPB Q6H PRN PRN Reason: PAIN LEVEL 1 - 3 Last Admin: 04/20/18 12:37 Dose: 600 mg Lactobacillus Acidophilus (Bacid -) 1 tab PO DAILY [facility] Last Admin: 04/21/18 09:47 Dose: 1 tab Mirtazapine (Remeron -) 15 mg PEG HS [facility] Last Admin: 04/20/18 22:11 Dose: 15 mg Ondansetron HCl (Zofran Injection) 4 mg IVPUSH Q6H PRN PRN Reason: NAUSEA AND/OR VOMITING Phenol/Menthol (Chloraseptic -) 1 spray MM Q6HPO PRN PRN Reason: SORE THROAT Last Admin: 04/20/18 00:14 Dose: 1 spray Prednisone (Deltasone -) 40 mg PO DAILY [facility] Last Admin: 04/21/18 09:39 Dose: 40 mg Raltegravir (Isentress -) 400 mg NR BID [facility] Last Admin: 04/21/18 09:39 Dose: 400 mg Ranitidine HCl (Zantac Oral Solution -) 150 mg PEG BID [facility] Last Admin: 04/21/18 09:42 Dose: 150 mg Sertraline HCl (Zoloft -) 50 mg PO DAILY [facility] Last Admin: 04/21/18 09:43 Dose: 50 mg Tramadol HCl (Ultram -) 50 mg PO Q6H PRN PRN Reason: PAIN LEVEL 6-10 Last Admin: 04/21/18 09:47 Dose: 50 mg Vancomycin HCl (Vancomycin Oral Solution) 125 mg PO Q6HPO [facility] Last Admin: 04/21/18 12:16 Dose: 125 mg Zolpidem Tartrate (Ambien -) 5 mg PO HS PRN PRN Reason: INSOMNIA Last Admin: 04/20/18 00:21 Dose: 5 mg Constitutional: Yes: NAD Eyes: Yes: WNL HENT: Yes: WNL Neck: Yes: Supple, Trach intact Cardiovascular: Yes: Regular Rate and Rhythm, S1, S2 Respiratory: Yes: Scattered bilateral Rhonchi Gastrointestinal: Yes: Normal Bowel Sounds, Soft Extremities: Yes: WNL Edema: No Labs: Laboratory Results - last 24 hr 04/21/18 04/21/18 05:30 05:30 WBC 12.9 H RBC 2.70 L Hgb 8.6 L Hct 26.6 L MCV 98.6 H MCH 31.8 MCHC 32.3 RDW 14.9 Plt Count 381 MPV 8.5 Absolute Neuts (auto) 11.4 H Neutrophils % 88.0 H Lymphocytes % 8.6 D Monocytes % 3.1 L Eosinophils % 0.1 Basophils % 0.2 Nucleated RBC % 0 Sodium 146 H Potassium 3.7 Chloride 108 H Carbon Dioxide 30 Anion Gap 8 BUN 31 H Creatinine 0.2 L Creat Clearance w eGFR > 60 Random Glucose 97 Calcium 7.8 L Magnesium 2.2 Total Bilirubin 0.2 AST 13 L ALT 15 Alkaline Phosphatase 64 Total Protein 4.8 L Albumin 1.6 L Problem List - Problems (1) Acute on chronic respiratory failure with hypoxia and hypercapnia Code(s): J96.21 - ACUTE AND CHRONIC RESPIRATORY FAILURE WITH HYPOXIA; J96.22 - ACUTE AND CHRONIC RESPIRATORY FAILURE WITH HYPERCAPNIA (2) Laryngeal carcinoma Code(s): C32.9 - MALIGNANT NEOPLASM OF LARYNX, UNSPECIFIED (3) Pneumonia Code(s): J18.9 - PNEUMONIA, UNSPECIFIED ORGANISM Qualifiers: Pneumonia type: due to unspecified organism Laterality: bilateral Lung location: unspecified part of lung Qualified Code(s): J18.9 - Pneumonia, unspecified organism (4) AIDS Code(s): B20 - HUMAN IMMUNODEFICIENCY VIRUS [HIV] DISEASE (5) Difficulty breathing Code(s): R06.89 - OTHER ABNORMALITIES OF BREATHING (6) HIV (human immunodeficiency virus infection) Code(s): Z21 - ASYMPTOMATIC HUMAN IMMUNODEFICIENCY VIRUS INFECTION STATUS (7) Head and neck cancer Code(s): C76.0 - MALIGNANT NEOPLASM OF HEAD, FACE AND NECK Assessment/Plan Acute on Chronic Hypoxic Respiratory Failure improving Bilateral Pneumonia: HAP ARDS resolving Klebsiella Bacteremia Sepsis HIV/AIDS h/o Laryngeal Ca s/p trach/PEG Pleural effusion exudate likely uncomplicated parapneumonic effusion - ABX per ID - inhaled bronchodilators - pain control - Chest PT/bed percussion - O2 to maintain saturation - continue ART - DVT prophylaxis - Prednsione - Will need follow up Chest CT as an outpatient in [address] Mccall
--- NOTE | 2018-04-21 12:53 | PN ---
Progress Note, Physician - Current Medication List Current Medications: Active Medications Acetaminophen (Tylenol -) 650 mg PO Q6H PRN PRN Reason: FEVER Last Admin: 04/18/18 05:52 Dose: 650 mg Acetylcysteine (Mucomyst 20 Oral / Inh Use Only*) 200 mg NEB Q4HWA [facility] Last Admin: 04/21/18 09:50 Dose: 200 mg Albuterol Sulfate (Ventolin 0.083% Nebulizer Soln -) 1 amp NEB Q4HWA [facility] Last Admin: 04/21/18 09:50 Dose: 1 amp Alprazolam (Xanax -) 0.25 mg PO Q6H PRN PRN Reason: ANXIETY Last Admin: 04/21/18 10:05 Dose: 0.25 mg Amino Acids (Prosource No Carb Liquid Pkt) 30 ml GT TID [facility] Last Admin: 04/21/18 06:33 Dose: 30 ml Budesonide/Formoterol Fumarate (Symbicort 160/4.5mcg -) 2 puff IH BID [facility] Last Admin: 04/21/18 10:43 Dose: 2 puff Ciprofloxacin (Ciloxan 0.3% Eye Drops -) 1 drop OU Q4HWA [facility] Stop: 04/26/18 10:01 Clotrimazole (Mycelex Lasha's -) 10 mg PO 5XD [facility] Last Admin: 04/21/18 09:41 Dose: 10 mg Emtricitabine/Tenofovir (Truvada) 1 tab PO DAILY [facility] Last Admin: 04/21/18 09:48 Dose: 1 tab Etravirine (Intelence -) 100 mg PO BIDPC [facility] Last Admin: 04/21/18 09:50 Dose: 100 mg Fluticasone Propionate (Flonase -) 1 spray NS DAILY [facility] Last Admin: 04/21/18 10:33 Dose: 1 spray Gabapentin (Neurontin Oral Liquid -) 250 mg PEG BID [facility] Last Admin: 04/21/18 10:33 Dose: 250 mg Metronidazole (Flagyl 500mg Premixed Ivpb -) 500 mg in 100 mls @ 100 mls/hr IVPB Q8H-IV [facility] Last Admin: 04/21/18 09:38 Dose: 100 mls/hr Meropenem 1 gm/ Dextrose 100 mls @ 200 mls/hr IVPB Q8H-IV [facility] Last Admin: 04/21/18 09:42 Dose: 200 mls/hr Ibuprofen (Caldolor Injection -) 600 mg IVPB Q6H PRN PRN Reason: PAIN LEVEL 1 - 3 Last Admin: 04/20/18 12:37 Dose: 600 mg Lactobacillus Acidophilus (Bacid -) 1 tab PO DAILY [facility] Last Admin: 04/21/18 09:47 Dose: 1 tab Mirtazapine (Remeron -) 15 mg PEG HS [facility] Last Admin: 04/20/18 22:11 Dose: 15 mg Ondansetron HCl (Zofran Injection) 4 mg IVPUSH Q6H PRN PRN Reason: NAUSEA AND/OR VOMITING Phenol/Menthol (Chloraseptic -) 1 spray MM Q6HPO PRN PRN Reason: SORE THROAT Last Admin: 04/20/18 00:14 Dose: 1 spray Prednisone (Deltasone -) 40 mg PO DAILY [facility] Last Admin: 04/21/18 09:39 Dose: 40 mg Raltegravir (Isentress -) 400 mg NR BID [facility] Last Admin: 04/21/18 09:39 Dose: 400 mg Ranitidine HCl (Zantac Oral Solution -) 150 mg PEG BID [facility] Last Admin: 04/21/18 09:42 Dose: 150 mg Sertraline HCl (Zoloft -) 50 mg PO DAILY [facility] Last Admin: 04/21/18 09:43 Dose: 50 mg Tramadol HCl (Ultram -) 50 mg PO Q6H PRN PRN Reason: PAIN LEVEL 6-10 Last Admin: 04/21/18 09:47 Dose: 50 mg Vancomycin HCl (Vancomycin Oral Solution) 125 mg PO Q6HPO [facility] Last Admin: 04/21/18 12:16 Dose: 125 mg Zolpidem Tartrate (Ambien -) 5 mg PO HS PRN PRN Reason: INSOMNIA Last Admin: 04/20/18 00:21 Dose: 5 mg - Objective Vital Signs: Vital Signs Temperature 100.0 F H 04/21/18 10:00 Pulse Rate 101 H 04/21/18 10:28 Respiratory Rate 20 04/21/18 11:36 Blood Pressure 112/79 04/21/18 10:00 O2 Sat by Pulse Oximetry (%) 95 04/21/18 11:36 Eyes: Yes: WNL, Conjunctiva Clear, EOM Intact HENT: Yes: WNL, Atraumatic, Normocephalic Neck: Yes: WNL, Supple, Trachea Midline Cardiovascular: Yes: WNL, Regular Rate and Rhythm Respiratory: Yes: WNL, Regular, CTA Bilaterally Gastrointestinal: Yes: WNL, Normal Bowel Sounds Genitourinary: Yes: WNL Musculoskeletal: Yes: WNL Extremities: Yes: WNL Edema: No Integumentary: Yes: WNL Neurological: Yes: WNL, Alert, Oriented ...Motor Strength: WNL Psychiatric: Yes: WNL Labs: CBC, BMP 04/21/18 05:30 04/21/18 05:30 INR, PTT INR 1.02 (0.83-1.09) 04/09/18 09:27 Assessment/Plan - Problems (1) Acute on chronic respiratory failure with hypoxia and hypercapnia Assessment/Plan: tracheostomy. On bronchodilators, O2, steroids per pumonary. Code(s): J96.21 - ACUTE AND CHRONIC RESPIRATORY FAILURE WITH HYPOXIA; J96.22 - ACUTE AND CHRONIC RESPIRATORY FAILURE WITH HYPERCAPNIA (2) Laryngeal carcinoma Assessment/Plan: on O2, bronchodilators, steroids per pumonologist. Code(s): C32.9 - MALIGNANT NEOPLASM OF LARYNX, UNSPECIFIED (3) AIDS Assessment/Plan: medication regimen per ID. Nutrition, physical rehabilitation. Maintain hydration. Code(s): B20 - HUMAN IMMUNODEFICIENCY VIRUS [HIV] DISEASE (4) Tobacco dependence Code(s): F17.200 - NICOTINE DEPENDENCE, UNSPECIFIED, UNCOMPLICATED (5) Tracheostomy dependence Code(s): Z93.0 - TRACHEOSTOMY STATUS (6) Atypical chest pain Assessment/Plan: Chest pain after coughing; no prior hx chest pain. She walks relatively frequently, and denies exertional chest discomfort. No acute STT changes on EKG. TNI <0.02 on multiple checks. Cholesterol well-controlled. TSH WNL. ECHO 2016: normal LVEF; small pericardial effusion without hemodynamic compromise. Code(s): R07.89 - OTHER CHEST PAIN (7) Acute on chronic diastolic CHF (congestive heart failure) Assessment/Plan: Dyspnea on mild exertion. Pleural effusion on CXR. F/u BNP 291 (was 212.6 in 2016). ECHO: normal LVEF; small pericardial effusion without hemodynamic compromise. F/u BUN/Cr, Is and Os, daily weight, electrolytes. Code(s): I50.33 - ACUTE ON CHRONIC DIASTOLIC (CONGESTIVE) HEART FAILURE (8) Pericardial effusion Assessment/Plan: small pericardial effusion; no hemodynamic compromise; unchanged from 04/08/18 to 04/12/18. Normal LVEF Code(s): I31.3 - PERICARDIAL EFFUSION (NONINFLAMMATORY) (9) Leukocytosis Assessment/Plan: Elevated WBCs, with periodic low-grade fevers. On multiple antibiotics per ID. F/u cultures. Maintain hydration. Code(s): D72.829 - ELEVATED WHITE BLOOD CELL COUNT, UNSPECIFIED (10) Hypokalemia Assessment/Plan: replete; f/u level. Code(s): E87.6 - HYPOKALEMIA (11) Anxiety Code(s): F41.9 - ANXIETY DISORDER, UNSPECIFIED
[2018-04-21] MEDS: ACETAMINOPHEN 325 MG TABLET (FP) PO PRN (13:13)
--- NOTE | 2018-04-21 13:54 | PN ---
Physical Exam: SUBJECTIVE: Patient seen and examined at the bedside. Feels better today, In no acute distress. breathing improving. OBJECTIVE: dischare planning, home with [employer]. d/c once cleared by pulmonary Vital Signs Period Temp Pulse Resp BP Sys/Lisa Pulse Ox Last 24 Hr 98.7 F-100.0 F 100-111 19-20 97-123/52-87 94-98 GENERAL: The patient is awake, alert, and fully oriented, in no acute distress. HEAD: Normal with no signs of trauma. EYES: PERRL, extraocular movements intact, sclera anicteric, conjunctiva clear. No ptosis. ENT: trach collar, frequently suctions herself NECK: Trachea midline, full range of motion, supple. LUNGS: Breath sounds with bilateral scattered rhonchi, overall improving since yesterday, coughing up some yellow sputum. HEART: Regular rate and rhythm ABDOMEN: + peg tube EXTREMITIES: no edema. NEUROLOGICAL: Normal speech, steady gait PSYCH: Normal mood, normal affect. SKIN: Warm, dry, normal turgor, no rashes or lesions noted Laboratory Results - last 24 hr Laboratory Results - last 24 hr 04/21/18 04/21/18 05:30 05:30 WBC 12.9 H RBC 2.70 L Hgb 8.6 L Hct 26.6 L MCV 98.6 H MCH 31.8 MCHC 32.3 RDW 14.9 Plt Count 381 MPV 8.5 Absolute Neuts (auto) 11.4 H Neutrophils % 88.0 H Lymphocytes % 8.6 D Monocytes % 3.1 L Eosinophils % 0.1 Basophils % 0.2 Nucleated RBC % 0 Sodium 146 H Potassium 3.7 Chloride 108 H Carbon Dioxide 30 Anion Gap 8 BUN 31 H Creatinine 0.2 L Creat Clearance w eGFR > 60 Random Glucose 97 Calcium 7.8 L Magnesium 2.2 Total Bilirubin 0.2 AST 13 L ALT 15 Alkaline Phosphatase 64 Total Protein 4.8 L Albumin 1.6 L Active Medications Generic Name Dose Route Start Last Admin Trade Name Freq PRN Reason Stop Dose Admin Acetaminophen 650 mg 04/03/18 15:41 04/21/18 13:13 Tylenol - PO 650 mg Q6H PRN Administration FEVER Acetylcysteine 200 mg 04/03/18 10:30 04/21/18 13:37 Mucomyst 20 Oral / Inh Use Only* NEB 200 mg Q4HWA [facility] Administration Albuterol Sulfate 1 amp 04/17/18 14:00 04/21/18 13:37 Ventolin 0.083% Nebulizer Soln - NEB 1 amp Q4HWA [facility] Administration Alprazolam 0.25 mg 04/20/18 17:02 04/21/18 10:05 Xanax - PO 0.25 mg Q6H PRN Administration ANXIETY Amino Acids 30 ml 04/13/18 14:45 04/21/18 13:13 Prosource No Carb Liquid Pkt GT 30 ml TID [facility] Administration Budesonide/Formoterol Fumarate 2 puff 04/03/18 22:00 04/21/18 10:43 Symbicort 160/4.5mcg - I[facility] 2 puff BID [facility] Administration Ciprofloxacin 1 drop 04/21/18 14:00 Ciloxan 0.3% Eye Drops - OU 04/26/18 10:01 Q4HWA [facility] Clotrimazole 10 mg 04/17/18 18:00 04/21/18 13:11 Mycelex Lasha's - PO 10 mg 5XD [facility] Administration Emtricitabine/Tenofovir 1 tab 04/04/18 10:00 04/21/18 09:48 Truvada PO 1 tab DAILY [facility] Administration Etravirine 100 mg 04/03/18 18:30 04/21/18 09:50 Intelence - PO 100 mg BIDPC [facility] Administration Fluticasone Propionate 1 spray 04/04/18 10:00 04/21/18 10:33 Flonase - NS 1 spray DAILY [facility] Administration Gabapentin 250 mg 04/03/18 22:00 04/21/18 10:33 Neurontin Oral Liquid - PEG 250 mg BID [facility] Administration Metronidazole 500 mg in 100 mls @ 100 mls/hr 04/17/18 18:00 04/21/18 09:38 Flagyl 500mg Premixed Ivpb - IVPB 100 mls/hr Q8H-IV [facility] Administration Meropenem 1 gm/ Dextrose 100 mls @ 200 mls/hr 04/19/18 14:30 04/21/18 09:42 IVPB 200 mls/hr Q8H-IV [facility] Administration Ibuprofen 600 mg 04/15/18 16:39 04/20/18 12:37 Caldolor Injection - IVPB 600 mg Q6H PRN Administration PAIN LEVEL 1 - 3 Lactobacillus Acidophilus 1 tab 04/03/18 10:45 04/21/18 09:47 Bacid - PO 1 tab DAILY [facility] Administration Mirtazapine 15 mg 04/03/18 22:00 04/20/18 22:11 Remeron - PEG 15 mg HS [facility] Administration Ondansetron HCl 4 mg 04/11/18 19:55 Zofran Injection IVPUSH Q6H PRN NAUSEA AND/OR VOMITING Phenol/Menthol 1 spray 04/17/18 13:57 04/20/18 00:14 Chloraseptic - MM 1 spray Q6HPO PRN Administration SORE THROAT Prednisone 40 mg 04/18/18 10:00 04/21/18 09:39 Deltasone - PO 40 mg DAILY [facility] Administration Raltegravir 400 mg 04/03/18 22:00 04/21/18 09:39 Isentress - NR 400 mg BID [facility] Administration Ranitidine HCl 150 mg 04/19/18 10:00 04/21/18 09:42 Zantac Oral Solution - PEG 150 mg BID [facility] Administration Sertraline HCl 50 mg 04/04/18 10:00 04/21/18 09:43 Zoloft - PO 50 mg DAILY [facility] Administration Tramadol HCl 50 mg 04/16/18 14:13 04/21/18 09:47 Ultram - PO 50 mg Q6H PRN Administration PAIN LEVEL 6-10 Vancomycin HCl 125 mg 04/15/18 18:00 04/21/18 12:16 Vancomycin Oral Solution PO 125 mg Q6HPO [facility] Administration Zolpidem Tartrate 5 mg 04/17/18 21:59 04/20/18 00:21 Ambien - PO 5 mg HS PRN Administration INSOMNIA imaging: chest xray 04/05: bilateral pleural effusions chest xray 04/06: chest xray with slight decrease in pleural effusions chest xray 04/09: s/p thora with slight decrease in pleural fluid chest xray 04/11: improvement, better aeration CTAP 04/11/18: Abdomen/pelvis CT w/o contrast with bibasal consolidation/ pneumonia with small pericardial effusion tiny non obstructing renal stones, and significant hepatomegaly. CT 04/19/2018: increased size and extent of a large left upper lobe infiltrate seen with interval development of cavitation. small bilateral pleural effusions. ASSESSMENT/PLAN: Patient is a 47 year old female with a significant past medical history of +HIV x 18 years, laryngeal cancer with a chronic trach, PEG tube, hepatitis B and failure to thrive. Patient presented to the ED on 03/28/2018 with symptoms of nausea, vomiting, diarrhea, cough and fever. Hospitalization complicated for acute shortness of breath and patient was transferred to the ICU on 03/30 and placed on a mechanical ventilator. She was up for discharged apx 1 week ago, but developed a fever of 104.6 and was found to have extensive bilateral pneumonia. She was restarted on broad spectrum antibiotics of Zosyn and Vanco. her blood and urine cultures have been repeated and continue to be negative to date. On 04/13/2018, her stool has postive for cdiff, antigen and was started on PO vanco. She is currently on meropenem IV and flagyl IV and vancomycin PO. Pulmonary: Hospital acquired pneumonia: as noted on CT. On Meropenem. Ct noted to have cavitary pneumonia, not likely TB per pulmonary. On meropenem, Chest PT and scheduled duonebs. Afebrile currently. WBC trending down @ 12.9 today. Patient clinically improving. Chronic trach/shortness of breath/Asthma/COPD/pneumonia: On scheduled duonebs with mucomyst and chest percussion. Pleural effusions: Bilateral pleural effusions seen on CT scan. Incentive spriometer. ID: HIV: Continue home antiviral triple therapy. Card: chest pain, resolved: trops negative, small pericardial effusion. cardiology following. tHypotension: monitor in the setting of pneumonia/sepsis. Onc: Laryngeal carcinoma, has chronic trach and feeds via peg tube. Needs MBS to evaluate swallowing function. Seen by speech and swallow. Pt made aware that MBS could not be done until patient has her trach changed and provox can be used. On GT feedings of high calorie boost which is her home nutrition. new GT replaced 9..18 by GI, but port too small, replaced by IR on . Psyche: Anxiety history. klonopin increased to q6 prn. Endocrine: hmg a1c 6.2, boderline, monitor for now. prophy: Heparin tid aspiration precautions. physical therapy once infection improves fen GT feeds, given boost supplements via gravity and prosource bid (apx 3k per day ) monitor electrolytes prosource zantac On continuous pulse monitoring. Visit type - Emergency Visit Emergency Visit: Yes ED Registration Date: 03/28/18 Care time: The patient presented to the Emergency Department on the above date and was hospitalized for further evaluation of their emergent condition. - New Patient This patient is new to me today: No - Critical Care Critical Care patient: No - Discharge Referral Referred to [facility] Med [facility].C[facility] No
[2018-04-21] MEDS: CIPROFLOXACIN HCL 0.3% OPHTH 2.5ML BOTTLE OU SCH ×2 (14:55→22:00)
--- NOTE | 2018-04-21 18:49 | PN ---
Progress Note, Physician History of Present Illness: Awake, alert Appears more comfortable at rest Reports less sputum production + blood -streaked Temps low grade Diarrhea better CT worsening L infiltrate with cavitation WBC improved - Current Medication List Current Medications: Active Medications Acetaminophen (Tylenol -) 650 mg PO Q6H PRN PRN Reason: FEVER Last Admin: 04/21/18 13:13 Dose: 650 mg Acetylcysteine (Mucomyst 20 Oral / Inh Use Only*) 200 mg NEB Q4HWA [facility] Last Admin: 04/21/18 17:30 Dose: 200 mg Albuterol Sulfate (Ventolin 0.083% Nebulizer Soln -) 1 amp NEB Q4HWA [facility] Last Admin: 04/21/18 17:30 Dose: 1 amp Alprazolam (Xanax -) 0.25 mg PO Q6H PRN PRN Reason: ANXIETY Last Admin: 04/21/18 10:05 Dose: 0.25 mg Amino Acids (Prosource No Carb Liquid Pkt) 30 ml GT TID [facility] Last Admin: 04/21/18 13:13 Dose: 30 ml Budesonide/Formoterol Fumarate (Symbicort 160/4.5mcg -) 2 puff IH BID [facility] Last Admin: 04/21/18 10:43 Dose: 2 puff Ciprofloxacin (Ciloxan 0.3% Eye Drops -) 1 drop OU Q4HWA [facility] Stop: 04/26/18 10:01 Last Admin: 04/21/18 14:55 Dose: Not Given Clotrimazole (Mycelex Lasha's -) 10 mg PO 5XD [facility] Last Admin: 04/21/18 17:46 Dose: 10 mg Emtricitabine/Tenofovir (Truvada) 1 tab PO DAILY [facility] Last Admin: 04/21/18 09:48 Dose: 1 tab Etravirine (Intelence -) 100 mg PO BIDPC [facility] Last Admin: 04/21/18 17:47 Dose: 100 mg Fluticasone Propionate (Flonase -) 1 spray NS DAILY [facility] Last Admin: 04/21/18 10:33 Dose: 1 spray Gabapentin (Neurontin Oral Liquid -) 250 mg PEG BID [facility] Last Admin: 04/21/18 10:33 Dose: 250 mg Metronidazole (Flagyl 500mg Premixed Ivpb -) 500 mg in 100 mls @ 100 mls/hr IVPB Q8H-IV [facility] Last Admin: 04/21/18 17:54 Dose: 100 mls/hr Meropenem 1 gm/ Dextrose 100 mls @ 200 mls/hr IVPB Q8H-IV [facility] Last Admin: 04/21/18 17:54 Dose: 200 mls/hr Ibuprofen (Caldolor Injection -) 600 mg IVPB Q6H PRN PRN Reason: PAIN LEVEL 1 - 3 Last Admin: 04/20/18 12:37 Dose: 600 mg Lactobacillus Acidophilus (Bacid -) 1 tab PO DAILY [facility] Last Admin: 04/21/18 09:47 Dose: 1 tab Mirtazapine (Remeron -) 15 mg PEG HS [facility] Last Admin: 04/20/18 22:11 Dose: 15 mg Ondansetron HCl (Zofran Injection) 4 mg IVPUSH Q6H PRN PRN Reason: NAUSEA AND/OR VOMITING Phenol/Menthol (Chloraseptic -) 1 spray MM Q6HPO PRN PRN Reason: SORE THROAT Last Admin: 04/20/18 00:14 Dose: 1 spray Prednisone (Deltasone -) 40 mg PO DAILY [facility] Last Admin: 04/21/18 09:39 Dose: 40 mg Raltegravir (Isentress -) 400 mg NR BID [facility] Last Admin: 04/21/18 09:39 Dose: 400 mg Ranitidine HCl (Zantac Oral Solution -) 150 mg PEG BID [facility] Last Admin: 04/21/18 09:42 Dose: 150 mg Sertraline HCl (Zoloft -) 50 mg PO DAILY [facility] Last Admin: 04/21/18 09:43 Dose: 50 mg Tramadol HCl (Ultram -) 50 mg PO Q6H PRN PRN Reason: PAIN LEVEL 6-10 Last Admin: 04/21/18 17:53 Dose: 50 mg Vancomycin HCl (Vancomycin Oral Solution) 125 mg PO Q6HPO [facility] Last Admin: 04/21/18 17:46 Dose: 125 mg Zolpidem Tartrate (Ambien -) 5 mg PO HS PRN PRN Reason: INSOMNIA Last Admin: 04/20/18 00:21 Dose: 5 mg - Objective Vital Signs: Vital Signs Temperature 100.0 F H 04/21/18 10:00 Pulse Rate 128 H 04/21/18 14:00 Respiratory Rate 20 04/21/18 11:36 Blood Pressure 117/67 04/21/18 14:00 O2 Sat by Pulse Oximetry (%) 95 04/21/18 11:36 Constitutional: Yes: No Distress Eyes: Yes: Conjunctiva Clear Cardiovascular: Yes: Regular Rate and Rhythm, S1, S2 Respiratory: Yes: Rhonchi Gastrointestinal: Yes: Normal Bowel Sounds, Soft Edema: No Labs: CBC, BMP 04/21/18 05:30 04/21/18 05:30 INR, PTT INR 1.02 (0.83-1.09) 04/09/18 09:27 Assessment/Plan Fever Leukocytosis improved Worsening L Pneumonia , now with cavitation Respiratory failure Hx Klebsiella bacteremia AIDS Continue IV vancomycin/ meropenem Continue Vancomycin po /flagyl IV
[2018-04-21] MEDS: MIRTAZAPINE 15 MG TABLET (FP) PEG SCH (21:27)
[2018-04-22] MEDS: VANCOMYCIN 250 MG/5 ML ORAL SOLUTION PO SCH ×4 (00:07→17:51)
[2018-04-22] MEDS ORDERED: PT OWN MED DRAWER 7, Y5N ONE ×3 (01:15→17:09)
[2018-04-22] MEDS: MEROPENEM 1 GM in DEXTROSE 5%-WATER 100 ML IVPB SCH ×3 (01:19→17:52)
[2018-04-22] MEDS: ZOLPIDEM TARTRATE 5 MG TABLET PO PRN (01:19)
[2018-04-22] MEDS: ALBUTEROL SO4 0.083% IH SOL 2.5 MG/3 ML VIAL.NEB. NEB SCH ×5 (05:45→21:18)
[2018-04-22] MEDS: ACETYLCYSTEINE 20% 200MG/ML 4 ML VIAL *FOR ORAL / INH USE ONLY NEB SCH ×5 (05:45→21:18)
[2018-04-22] MEDS: CLOTRIMAZOLE 10 MG TROCHE (FP) PO SCH ×5 (06:20→22:26)
[2018-04-22] MEDS: AMINO ACIDS/PROTEIN HYDROLYS 30 ML LIQUID.PKT GT SCH ×3 (06:20→22:27)
[2018-04-22] MEDS: ALPRAZolam 0.25 MG TABLET PO PRN ×3 (06:21→17:53)
[2018-04-22] MEDS: CIPROFLOXACIN 0.3% EYE DROPS 5 ML BOTTLE OU SCH (06:38)
[2018-04-22] MEDS: CIPROFLOXACIN HCL 0.3% OPHTH 2.5ML BOTTLE OU SCH ×5 (06:39→22:25)
[2018-04-22 07:21] LABS: BASO % 0.2 % (0-2.0); EOS % 0.2 % (0-4.5); HEMATOCRIT 25.7 % (32.4-45.2); HEMOGLOBIN 8.6 GM/dL (10.7-15.3); LYMPH % 16.8 % (8-40); MCH 32.4 pg (25.7-33.7); MCHC 33.4 g/dl (32.0-36.0); MEAN CELL VOLUME 97.2 fl (80-96); MEAN PLT VOLUME 8.5 fl (7.5-11.1); MONO % 5.2 % (3.8-10.2); NEUT % 77.6 % (42.8-82.8); PLATELET COUNT 405 K/MM3 (134-434); RBC 2.65 M/mm3 (3.60-5.2); RDW 15.2 % (11.6-15.6); WHITE BLOOD COUNT 9.6 K/mm3 (4.0-10.0)
[2018-04-22 07:40] LABS: CHLORIDE 103 mmol/L (98-107); POTASSIUM 3.5 mmol/L (3.5-5.1); SODIUM 141 mmol/L (136-145)
[2018-04-22 07:47] LABS: ALBUMIN 1.7 g/dl (3.4-5.0); ALK PHOS 61 U/L (45-117); ANION GAP 5 MMOL/L (8-16); BILIRUBIN,TOTAL 0.2 mg/dL (0.2-1); BLOOD UREA NITROGEN 28 mg/dL (7-18); CALCIUM 7.9 mg/dL (8.5-10.1); CO2 33 mmol/L (21-32); CREATININE 0.3 mg/dL (0.55-1.3); GLUCOSE,RANDOM 87 mg/dL (74-106); MAGNESIUM 2.2 mg/dL (1.8-2.4); SGOT/AST 19 U/L (15-37); SGPT/ALT 16 U/L (13-61)
[2018-04-22] MEDS: RANITIDINE HCL 150 MG/10 ML UNIT-DOSE PEG SCH ×2 (09:13→22:27)
[2018-04-22] MEDS: LACTOBACILLUS ACIDOPHILUS 1 TABLET PO SCH (09:13)
[2018-04-22] MEDS: SERTRALINE HCL 50 MG TABLET (FP) PO SCH (09:14)
[2018-04-22] MEDS: predniSONE 20 MG TABLET (UD) PO SCH (09:14)
[2018-04-22] MEDS: RALTEGRAVIR POTASSIUM 400 MG TAB NR SCH ×2 (09:15→22:25)
[2018-04-22] MEDS: GABAPENTIN 250 MG/5 ML ORAL SOLUTION, 470 ML BOTTLE PEG SCH ×2 (09:17→22:26)
--- NOTE | 2018-04-22 09:17 | PN ---
Physical Exam: SUBJECTIVE: Patient seen and examined at the bedside. upset, crying today. fear of being home alone and not having the proper care if she were to go into respiratory distress. spoke to her about possible rehab. she is willing to consider. she is also willing to consider outpatient pulm rehab. discharge planning. will reach out to ID to determine length of antibiotics therapy. OBJECTIVE: wbc trending down, oxygen sats 86% on nasal cannula. currently getting respiratory treatment. Vital Signs Period Temp Pulse Resp BP Sys/Lisa Pulse Ox Last 24 Hr 99.8 F-100.0 F 96-128 20-20 112-128/55-79 94-95 GENERAL: The patient is awake, alert, and fully oriented, in no acute distress. HEAD: Normal with no signs of trauma. EYES: PERRL, extraocular movements intact, sclera anicteric, conjunctiva clear. No ptosis. ENT: trach collar, frequently suctions herself NECK: Trachea midline, full range of motion, supple. LUNGS: Breath sounds with bilateral scattered rhonchi, overall improving since yesterday, coughing up some yellow sputum. HEART: Regular rate and rhythm ABDOMEN: + peg tube EXTREMITIES: no edema. NEUROLOGICAL: Normal speech, steady gait PSYCH: Normal mood, normal affect. SKIN: Warm, dry, normal turgor, no rashes or lesions noted Laboratory Results - last 24 hr 04/21/18 04/22/18 04/22/18 05:30 05:30 05:30 WBC 9.6 RBC 2.65 L Hgb 8.6 L Hct 25.7 L MCV 97.2 H MCH 32.4 MCHC 33.4 RDW 15.2 Plt Count 405 MPV 8.5 Absolute Neuts (auto) 7.4 Neutrophils % 77.6 Lymphocytes % 16.8 D Monocytes % 5.2 Eosinophils % 0.2 D Basophils % 0.2 Nucleated RBC % 0 Sodium 141 Potassium 3.5 Chloride 103 Carbon Dioxide 33 H Anion Gap 5 L BUN 31 H 28 H Creatinine 0.3 L Creat Clearance w eGFR > 60 Random Glucose 87 Calcium 7.8 L 7.9 L Magnesium 2.2 2.2 Total Bilirubin 0.2 AST 19 ALT 16 Alkaline Phosphatase 61 Total Protein 5.0 L Albumin 1.7 L Active Medications Generic Name Dose Route Start Last Admin Trade Name Freq PRN Reason Stop Dose Admin Acetaminophen 650 mg 04/03/18 15:41 04/21/18 13:13 Tylenol - PO 650 mg Q6H PRN Administration FEVER Acetylcysteine 200 mg 04/03/18 10:30 04/22/18 05:45 Mucomyst 20 Oral / Inh Use Only* NEB 200 mg Q4HWA RAZ Administration Albuterol Sulfate 1 amp 04/17/18 14:00 04/22/18 05:45 Ventolin 0.083% Nebulizer Soln - NEB 1 amp Q4HWA RAZ Administration Alprazolam 0.25 mg 04/20/18 17:02 04/22/18 06:21 Xanax - PO 0.25 mg Q6H PRN Administration ANXIETY Amino Acids 30 ml 04/13/18 14:45 04/22/18 06:20 Prosource No Carb Liquid Pkt GT 30 ml TID RAZ Administration Budesonide/Formoterol Fumarate 2 puff 04/03/18 22:00 04/21/18 21:30 Symbicort 160/4.5mcg - IH 2 puff BID RAZ Administration Ciprofloxacin 1 drop 04/21/18 14:00 04/22/18 06:39 Ciloxan 0.3% Eye Drops - OU 04/26/18 10:01 1 drop Q4HWA RAZ Administration Clotrimazole 10 mg 04/17/18 18:00 04/22/18 06:20 Mycelex Lasha's - PO 10 mg 5XD RAZ Administration Emtricitabine/Tenofovir 1 tab 04/04/18 10:00 04/21/18 09:48 Truvada PO 1 tab DAILY RAZ Administration Etravirine 100 mg 04/03/18 18:30 04/21/18 17:47 Intelence - PO 100 mg BIDPC RAZ Administration Fluticasone Propionate 1 spray 04/04/18 10:00 04/21/18 10:33 Flonase - NS 1 spray DAILY RAZ Administration Gabapentin 250 mg 04/03/18 22:00 04/21/18 21:26 Neurontin Oral Liquid - PEG 250 mg BID RAZ Administration Metronidazole 500 mg in 100 mls @ 100 mls/hr 04/17/18 18:00 04/22/18 01:19 Flagyl 500mg Premixed Ivpb - IVPB 100 mls/hr Q8H-IV RAZ Administration Meropenem 1 gm/ Dextrose 100 mls @ 200 mls/hr 04/19/18 14:30 04/22/18 01:19 IVPB 200 mls/hr Q8H-IV RAZ Administration Ibuprofen 600 mg 04/15/18 16:39 04/20/18 12:37 Caldolor Injection - IVPB 600 mg Q6H PRN Administration PAIN LEVEL 1 - 3 Lactobacillus Acidophilus 1 tab 04/03/18 10:45 04/21/18 09:47 Bacid - PO 1 tab DAILY RAZ Administration Mirtazapine 15 mg 04/03/18 22:00 04/21/18 21:27 Remeron - PEG 15 mg HS RAZ Administration Ondansetron HCl 4 mg 04/11/18 19:55 Zofran Injection IVPUSH Q6H PRN NAUSEA AND/OR VOMITING Phenol/Menthol 1 spray 04/17/18 13:57 04/20/18 00:14 Chloraseptic - MM 1 spray Q6HPO PRN Administration SORE THROAT Prednisone 40 mg 04/18/18 10:00 04/21/18 09:39 Deltasone - PO 40 mg DAILY RAZ Administration Raltegravir 400 mg 04/03/18 22:00 04/21/18 21:28 Isentress - NR 400 mg BID RAZ Administration Ranitidine HCl 150 mg 04/19/18 10:00 04/21/18 22:00 Zantac Oral Solution - PEG 150 mg BID RAZ Administration Sertraline HCl 50 mg 04/04/18 10:00 04/21/18 09:43 Zoloft - PO 50 mg DAILY RAZ Administration Tramadol HCl 50 mg 04/16/18 14:13 04/21/18 17:53 Ultram - PO 50 mg Q6H PRN Administration PAIN LEVEL 6-10 Vancomycin HCl 125 mg 04/15/18 18:00 04/22/18 06:39 Vancomycin Oral Solution PO 125 mg Q6HPO RAZ Administration Zolpidem Tartrate 5 mg 04/17/18 21:59 04/22/18 01:19 Ambien - PO 5 mg HS PRN Administration INSOMNIA imaging: chest xray 3: bilateral pleural effusions chest xray 4: chest xray with slight decrease in pleural effusions chest xray 04/09: s/p thora with slight decrease in pleural fluid chest xray 04/11: improvement, better aeration CTAP 04/11/18: Abdomen/pelvis CT w/o contrast with bibasal consolidation/ pneumonia with small pericardial effusion tiny non obstructing renal stones, and significant hepatomegaly. CT 04/19/2018: increased size and extent of a large left upper lobe infiltrate seen with interval development of cavitation. small bilateral pleural effusions. ASSESSMENT/PLAN: Patient is a 47 year old female with a significant past medical history of +HIV x 18 years, laryngeal cancer with a chronic trach, PEG tube, hepatitis B and failure to thrive. Patient presented to the ED on 03/28/2018 with symptoms of nausea, vomiting, diarrhea, cough and fever. Hospitalization complicated for acute shortness of breath and patient was transferred to the ICU on 03/30 and placed on a mechanical ventilator. She is currently on meropenem IV and flagyl IV and vancomycin PO. Pulmonary: Hospital acquired pneumonia: as noted on CT. On Meropenem. Ct noted to have cavitary pneumonia, not likely TB per pulmonary. WBC trending down @ 9.6 today. Patient clinically improving. Chronic trach/shortness of breath/Asthma/COPD/pneumonia: On scheduled duonebs with mucomyst and chest percussion. Pleural effusions: Bilateral pleural effusions seen on CT scan. Incentive spriometer. ID: HIV: Continue home antiviral triple therapy. Card: chest pain, resolved Hypotension: resolved Onc: Laryngeal carcinoma, has chronic trach and feeds via peg tube. Psyche: Anxiety history. klonopin increased to q6 prn. Endocrine: hmg a1c 6.2, boderline, monitor . prophy: Heparin tid aspiration precautions. physical therapy fen GT feeds, given boost supplements via gravity and prosource bid (apx 3k per day ) monitor electrolytes prosource zantac On continuous pulse monitoring. Visit type - Emergency Visit Emergency Visit: Yes ED Registration Date: 03/28/18 Care time: The patient presented to the Emergency Department on the above date and was hospitalized for further evaluation of their emergent condition. - New Patient This patient is new to me today: No - Critical Care Critical Care patient: No - Discharge Referral Referred to [facility] Med P.C.: No
[2018-04-22] MEDS: ETRAVIRINE 100 MG TABLET PO SCH ×2 (09:21→17:52)
[2018-04-22] MEDS: EMTRICITABINE 200MG/TENOFOVIR 300MG PO SCH (09:21)
[2018-04-22] MEDS: BUDESONIDE/FORMETEROL FUMARATE 160/4.5 mcg INHALER IH SCH ×2 (09:25→22:27)
[2018-04-22] MEDS: FLUTICASONE PROP 0.05% 16 GM NASAL SPRAY NS SCH (09:27)
--- NOTE | 2018-04-22 11:12 | PN ---
Progress Note, Physician History of Present Illness: PULMONARY ALERT,STILL CONGESTED,LESS DYSPNEIC,AFEBRILE - Current Medication List Current Medications: Active Medications Acetaminophen (Tylenol -) 650 mg PO Q6H PRN PRN Reason: FEVER Last Admin: 04/21/18 13:13 Dose: 650 mg Acetylcysteine (Mucomyst 20 Oral / Inh Use Only*) 200 mg NEB Q4HWA [facility] Last Admin: 04/22/18 09:30 Dose: 200 mg Albuterol Sulfate (Ventolin 0.083% Nebulizer Soln -) 1 amp NEB Q4HWA [facility] Last Admin: 04/22/18 09:30 Dose: 1 amp Alprazolam (Xanax -) 0.25 mg PO Q6H PRN PRN Reason: ANXIETY Last Admin: 04/22/18 06:21 Dose: 0.25 mg Amino Acids (Prosource No Carb Liquid Pkt) 30 ml GT TID [facility] Last Admin: 04/22/18 06:20 Dose: 30 ml Budesonide/Formoterol Fumarate (Symbicort 160/4.5mcg -) 2 puff IH BID [facility] Last Admin: 04/22/18 09:25 Dose: 2 puff Ciprofloxacin (Ciloxan 0.3% Eye Drops -) 1 drop OU Q4HWA [facility] Stop: 04/26/18 10:01 Last Admin: 04/22/18 09:24 Dose: 1 drop Clotrimazole (Mycelex Lasha's -) 10 mg PO 5XD [facility] Last Admin: 04/22/18 09:16 Dose: 10 mg Emtricitabine/Tenofovir (Truvada) 1 tab PO DAILY [facility] Last Admin: 04/22/18 09:21 Dose: 1 tab Etravirine (Intelence -) 100 mg PO BIDPC [facility] Last Admin: 04/22/18 09:21 Dose: 100 mg Fluticasone Propionate (Flonase -) 1 spray NS DAILY [facility] Last Admin: 04/22/18 09:27 Dose: 1 spray Gabapentin (Neurontin Oral Liquid -) 250 mg PEG BID [facility] Last Admin: 04/22/18 09:17 Dose: 5 ml Metronidazole (Flagyl 500mg Premixed Ivpb -) 500 mg in 100 mls @ 100 mls/hr IVPB Q8H-IV [facility] Last Admin: 04/22/18 09:14 Dose: 100 mls/hr Meropenem 1 gm/ Dextrose 100 mls @ 200 mls/hr IVPB Q8H-IV RAZ Last Admin: 04/22/18 09:14 Dose: 200 mls/hr Ibuprofen (Caldolor Injection -) 600 mg IVPB Q6H PRN PRN Reason: PAIN LEVEL 1 - 3 Last Admin: 04/20/18 12:37 Dose: 600 mg Lactobacillus Acidophilus (Bacid -) 1 tab PO DAILY [facility] Last Admin: 04/22/18 09:13 Dose: 1 tab Mirtazapine (Remeron -) 15 mg PEG HS [facility] Last Admin: 04/21/18 21:27 Dose: 15 mg Ondansetron HCl (Zofran Injection) 4 mg IVPUSH Q6H PRN PRN Reason: NAUSEA AND/OR VOMITING Phenol/Menthol (Chloraseptic -) 1 spray MM Q6HPO PRN PRN Reason: SORE THROAT Last Admin: 04/20/18 00:14 Dose: 1 spray Prednisone (Deltasone -) 40 mg PO DAILY [facility] Last Admin: 04/22/18 09:14 Dose: 40 mg Raltegravir (Isentress -) 400 mg NR BID [facility] Last Admin: 04/22/18 09:15 Dose: 400 mg Ranitidine HCl (Zantac Oral Solution -) 150 mg PEG BID [facility] Last Admin: 04/22/18 09:13 Dose: 150 mg Sertraline HCl (Zoloft -) 50 mg PO DAILY [facility] Last Admin: 04/22/18 09:14 Dose: 50 mg Tramadol HCl (Ultram -) 50 mg PO Q6H PRN PRN Reason: PAIN LEVEL 6-10 Last Admin: 04/21/18 17:53 Dose: 50 mg Vancomycin HCl (Vancomycin Oral Solution) 125 mg PO Q6HPO [facility] Last Admin: 04/22/18 06:39 Dose: 125 mg Zolpidem Tartrate (Ambien -) 5 mg PO HS PRN PRN Reason: INSOMNIA Last Admin: 04/22/18 01:19 Dose: 5 mg - Objective Vital Signs: Vital Signs Constitutional: Yes: Calm, Thin Eyes: Yes: WNL HENT: Yes: WNL Neck: Yes: Supple (TRACH) Cardiovascular: Yes: Regular Rate and Rhythm, S1, S2 Respiratory: Yes: Rhonchi (ASAEL RHONCHI) Gastrointestinal: Yes: Normal Bowel Sounds, Soft Extremities: Yes: WNL Edema: Yes (TRACE) Labs: CBC, BMP 04/22/18 05:30 04/22/18 05:30 INR, PTT INR 1.02 (0.83-1.09) 04/09/18 09:27 Problem List - Problems (1) Acute on chronic respiratory failure with hypoxia and hypercapnia Code(s): J96.21 - ACUTE AND CHRONIC RESPIRATORY FAILURE WITH HYPOXIA; J96.22 - ACUTE AND CHRONIC RESPIRATORY FAILURE WITH HYPERCAPNIA (2) Laryngeal carcinoma Code(s): C32.9 - MALIGNANT NEOPLASM OF LARYNX, UNSPECIFIED (3) Pneumonia Code(s): J18.9 - PNEUMONIA, UNSPECIFIED ORGANISM Qualifiers: Pneumonia type: due to unspecified organism Laterality: bilateral Lung location: unspecified part of lung Qualified Code(s): J18.9 - Pneumonia, unspecified organism (4) AIDS Code(s): B20 - HUMAN IMMUNODEFICIENCY VIRUS [HIV] DISEASE (5) Difficulty breathing Code(s): R06.89 - OTHER ABNORMALITIES OF BREATHING (6) HIV (human immunodeficiency virus infection) Code(s): Z21 - ASYMPTOMATIC HUMAN IMMUNODEFICIENCY VIRUS INFECTION STATUS (7) Head and neck cancer Code(s): C76.0 - MALIGNANT NEOPLASM OF HEAD, FACE AND NECK Assessment/Plan A/P Acute on Chronic Hypoxic Respiratory Failure Bilateral Pneumonia Cavitary pneumonia ARDS resolving Klebsiella Bacteremia Sepsis HIV/AIDS h/o Laryngeal Ca s/p trach/PEG Pleural effusion exudate likely uncomplicated parapneumonic effusion Fever - antibiotics as per ID - continue bacid - inhaled bronchodilators with mucomyst - pain control - chest PT/bed percussion - taper Fio2 to keep SpO2 >90% - ART - DVT prophylaxis - steroids - chest x-ray DR MAYER
[2018-04-22] MEDS: traMADol HCL 50 MG TABLET PO PRN (20:11)
--- NOTE | 2018-04-22 21:23 | PN ---
Progress Note, Physician History of Present Illness: Awake, alert Appears more comfortable at rest Reports less sputum production No blood streaked sputum Temps low grade WBC improved WNL - Current Medication List Current Medications: Active Medications Acetaminophen (Tylenol -) 650 mg PO Q6H PRN PRN Reason: FEVER Last Admin: 04/21/18 13:13 Dose: 650 mg Acetylcysteine (Mucomyst 20 Oral / Inh Use Only*) 200 mg NEB Q4HWA RAZ Last Admin: 04/22/18 21:18 Dose: 200 mg Albuterol Sulfate (Ventolin 0.083% Nebulizer Soln -) 1 amp NEB Q4HWA RAZ Last Admin: 04/22/18 21:18 Dose: 1 amp Alprazolam (Xanax -) 0.25 mg PO Q6H PRN PRN Reason: ANXIETY Last Admin: 04/22/18 17:53 Dose: 0.25 mg Amino Acids (Prosource No Carb Liquid Pkt) 30 ml GT TID [facility] Last Admin: 04/22/18 13:53 Dose: 30 ml Budesonide/Formoterol Fumarate (Symbicort 160/4.5mcg -) 2 puff IH BID [facility] Last Admin: 04/22/18 09:25 Dose: 2 puff Ciprofloxacin (Ciloxan 0.3% Eye Drops -) 1 drop OU Q4HWA [facility] Stop: 04/26/18 10:01 Last Admin: 04/22/18 17:53 Dose: 1 drop Clotrimazole (Mycelex Lasha's -) 10 mg PO 5XD [facility] Last Admin: 04/22/18 17:52 Dose: 10 mg Emtricitabine/Tenofovir (Truvada) 1 tab PO DAILY RAZ Last Admin: 04/22/18 09:21 Dose: 1 tab Etravirine (Intelence -) 100 mg PO BIDPC [facility] Last Admin: 04/22/18 17:52 Dose: 100 mg Fluticasone Propionate (Flonase -) 1 spray NS DAILY [facility] Last Admin: 04/22/18 09:27 Dose: 1 spray Gabapentin (Neurontin Oral Liquid -) 250 mg PEG BID [facility] Last Admin: 04/22/18 09:17 Dose: 5 ml Metronidazole (Flagyl 500mg Premixed Ivpb -) 500 mg in 100 mls @ 100 mls/hr IVPB Q8H-IV RAZ Last Admin: 04/22/18 17:52 Dose: 100 mls/hr Meropenem 1 gm/ Dextrose 100 mls @ 200 mls/hr IVPB Q8H-IV RAZ Last Admin: 04/22/18 17:52 Dose: 200 mls/hr Ibuprofen (Caldolor Injection -) 600 mg IVPB Q6H PRN PRN Reason: PAIN LEVEL 1 - 3 Last Admin: 04/20/18 12:37 Dose: 600 mg Lactobacillus Acidophilus (Bacid -) 1 tab PO DAILY [facility] Last Admin: 04/22/18 09:13 Dose: 1 tab Mirtazapine (Remeron -) 15 mg PEG HS [facility] Last Admin: 04/21/18 21:27 Dose: 15 mg Ondansetron HCl (Zofran Injection) 4 mg IVPUSH Q6H PRN PRN Reason: NAUSEA AND/OR VOMITING Phenol/Menthol (Chloraseptic -) 1 spray MM Q6HPO PRN PRN Reason: SORE THROAT Last Admin: 04/20/18 00:14 Dose: 1 spray Prednisone (Deltasone -) 40 mg PO DAILY [facility] Last Admin: 04/22/18 09:14 Dose: 40 mg Raltegravir (Isentress -) 400 mg NR BID [facility] Last Admin: 04/22/18 09:15 Dose: 400 mg Ranitidine HCl (Zantac Oral Solution -) 150 mg PEG BID [facility] Last Admin: 04/22/18 09:13 Dose: 150 mg Sertraline HCl (Zoloft -) 50 mg PO DAILY [facility] Last Admin: 04/22/18 09:14 Dose: 50 mg Tramadol HCl (Ultram -) 50 mg PO Q6H PRN PRN Reason: PAIN LEVEL 6-10 Last Admin: 04/22/18 20:11 Dose: 50 mg Vancomycin HCl (Vancomycin Oral Solution) 125 mg PO Q6HPO [facility] Last Admin: 04/22/18 17:51 Dose: 5 ml Zolpidem Tartrate (Ambien -) 5 mg PO HS PRN PRN Reason: INSOMNIA Last Admin: 04/22/18 01:19 Dose: 5 mg - Objective Vital Signs: Vital Signs Temperature 99.0 F 04/22/18 17:00 Pulse Rate 102 H 04/22/18 20:52 Respiratory Rate 20 04/22/18 20:52 Blood Pressure 123/53 04/22/18 20:52 O2 Sat by Pulse Oximetry (%) 99 04/22/18 14:50 Constitutional: Yes: No Distress, Cachectic Eyes: Yes: Conjunctiva Clear Cardiovascular: Yes: Regular Rate and Rhythm, Tachycardia, S1, S2 Respiratory: Yes: Rhonchi Gastrointestinal: Yes: Normal Bowel Sounds, Soft Edema: No Labs: CBC, BMP 04/22/18 05:30 04/22/18 05:30 INR, PTT INR 1.02 (0.83-1.09) 04/09/18 09:27 Assessment/Plan Fever, Leukocytosis improved Cavitary JENNIFER pneumonia/ necrotizing pneumonitis Respiratory failure Hx Klebsiella bacteremia AIDS Continue IV vancomycin/ meropenem Continue Vancomycin po /flagyl IV
[2018-04-22] MEDS: MIRTAZAPINE 15 MG TABLET (FP) PEG SCH (22:27)
[2018-04-22 23:30] VITALS: BMI 21.2
[2018-04-23] MEDS ORDERED: PT OWN MED DRAWER 7, Y5N ONE ×4 (00:18→21:12)
[2018-04-23] MEDS: VANCOMYCIN 250 MG/5 ML ORAL SOLUTION PO SCH ×5 (00:35→23:15)
[2018-04-23] MEDS: ZOLPIDEM TARTRATE 5 MG TABLET PO PRN ×2 (00:36→23:15)
[2018-04-23] MEDS: ALPRAZolam 0.25 MG TABLET PO PRN ×3 (00:36→18:17)
[2018-04-23] MEDS: MEROPENEM 1 GM in DEXTROSE 5%-WATER 100 ML IVPB SCH ×3 (01:21→19:00)
[2018-04-23] MEDS: traMADol HCL 50 MG TABLET PO PRN ×3 (06:32→21:51)
[2018-04-23] MEDS: AMINO ACIDS/PROTEIN HYDROLYS 30 ML LIQUID.PKT GT SCH ×3 (06:33→21:44)
[2018-04-23] MEDS: CLOTRIMAZOLE 10 MG TROCHE (FP) PO SCH ×5 (06:33→21:43)
[2018-04-23] MEDS: CIPROFLOXACIN HCL 0.3% OPHTH 2.5ML BOTTLE OU SCH ×5 (06:33→21:44)
[2018-04-23] MEDS: ALBUTEROL SO4 0.083% IH SOL 2.5 MG/3 ML VIAL.NEB. NEB SCH ×5 (06:42→22:20)
[2018-04-23] MEDS: ACETYLCYSTEINE 20% 200MG/ML 4 ML VIAL *FOR ORAL / INH USE ONLY NEB SCH ×5 (06:43→22:20)
[2018-04-23 06:58] LABS: BASO % 0.2 % (0-2.0); EOS % 0.8 % (0-4.5); HEMATOCRIT 24.9 % (32.4-45.2); HEMOGLOBIN 8.4 GM/dL (10.7-15.3); LYMPH % 25.3 % (8-40); MCH 32.9 pg (25.7-33.7); MCHC 33.8 g/dl (32.0-36.0); MEAN CELL VOLUME 97.4 fl (80-96); MEAN PLT VOLUME 8.2 fl (7.5-11.1); MONO % 8.7 % (3.8-10.2); PLATELET COUNT 395 K/MM3 (134-434); RBC 2.55 M/mm3 (3.60-5.2); RDW 14.9 % (11.6-15.6); WHITE BLOOD COUNT 6.2 K/mm3 (4.0-10.0)
[2018-04-23 07:15] LABS: ALBUMIN 1.6 g/dl (3.4-5.0); ALK PHOS 53 U/L (45-117); ANION GAP 3 MMOL/L (8-16); BILIRUBIN,TOTAL 0.2 mg/dL (0.2-1); BLOOD UREA NITROGEN 21 mg/dL (7-18); CALCIUM 7.4 mg/dL (8.5-10.1); CHLORIDE 102 mmol/L (98-107); CO2 34 mmol/L (21-32); CREATININE 0.3 mg/dL (0.55-1.3); GLUCOSE,RANDOM 83 mg/dL (74-106); MAGNESIUM 2.1 mg/dL (1.8-2.4); POTASSIUM 3.8 mmol/L (3.5-5.1); SGOT/AST 19 U/L (15-37); SGPT/ALT 17 U/L (13-61); SODIUM 140 mmol/L (136-145); TOT PROT 4.6 g/dl (6.4-8.2)
[2018-04-23 07:48] LABS: CHOLESTEROL 67 mg/dL (50-200); HDL CHOLESTEROL 23 mg/dL (40-60); TRIGLYCERIDES 69 mg/dL (0-150)
[2018-04-23] MEDS: LACTOBACILLUS ACIDOPHILUS 1 TABLET PO SCH (09:28)
[2018-04-23] MEDS: predniSONE 20 MG TABLET (UD) PO SCH (09:28)
[2018-04-23] MEDS: ACETAMINOPHEN 325 MG TABLET (FP) PO PRN (09:30)
[2018-04-23] MEDS: EMTRICITABINE 200MG/TENOFOVIR 300MG PO SCH (09:32)
[2018-04-23] MEDS: ETRAVIRINE 100 MG TABLET PO SCH ×2 (09:32→18:19)
[2018-04-23] MEDS: RALTEGRAVIR POTASSIUM 400 MG TAB NR SCH ×2 (09:32→21:42)
[2018-04-23] MEDS: RANITIDINE HCL 150 MG/10 ML UNIT-DOSE PEG SCH ×2 (09:33→21:44)
[2018-04-23] MEDS: SERTRALINE HCL 50 MG TABLET (FP) PO SCH (09:33)
[2018-04-23] MEDS: BUDESONIDE/FORMETEROL FUMARATE 160/4.5 mcg INHALER IH SCH ×2 (09:34→23:08)
[2018-04-23] MEDS: FLUTICASONE PROP 0.05% 16 GM NASAL SPRAY NS SCH (09:34)
[2018-04-23] MEDS: GABAPENTIN 250 MG/5 ML ORAL SOLUTION, 470 ML BOTTLE PEG SCH ×2 (10:00→21:43)
[2018-04-23] MEDS ORDERED: FUROSEMIDE 40 MG/4 ML INJECTABLE VIAL IVPUSH ONE ×2 (10:50→11:10)
--- NOTE | 2018-04-23 10:51 | PN ---
Physical Exam: SUBJECTIVE: Patient seen and examined at the bedside. OBJECTIVE: lasix 20mg iv push x 1 for generalized edema, although likely secondary to steriods. monitor output ID to follow up for duration of iv antibiotics. Vital Signs Period Temp Pulse Resp BP Sys/Lisa Pulse Ox Last 24 Hr 98.6 F-99.0 F 95-106 20-20 107-129/53-86 99 GENERAL: The patient is awake, alert, and fully oriented, in no acute distress, anxious, agitated today HEAD: Normal with no signs of trauma. EYES: PERRL, extraocular movements intact, sclera anicteric, conjunctiva clear. No ptosis. ENT: trach collar, frequently suctions herself NECK: Trachea midline, full range of motion, supple. LUNGS: Breath sounds with bilateral scattered rhonchi, overall improving since yesterday, coughing up some green sputum. HEART: Regular rate and rhythm ABDOMEN: + peg tube EXTREMITIES: mild edema NEUROLOGICAL: Normal speech, steady gait PSYCH: anxious, agitated SKIN: Warm, dry, normal turgor, no rashes or lesions noted Laboratory Results - last 24 hr 04/23/18 04/23/18 04/23/18 05:30 05:30 05:30 WBC 6.2 RBC 2.55 L Hgb 8.4 L Hct 24.9 L MCV 97.4 H MCH 32.9 MCHC 33.8 RDW 14.9 Plt Count 395 MPV 8.2 Absolute Neuts (auto) 4.0 Neutrophils % 65.0 Lymphocytes % 25.3 D Monocytes % 8.7 Eosinophils % 0.8 D Basophils % 0.2 Nucleated RBC % 0 Sodium 140 Potassium 3.8 Chloride 102 Carbon Dioxide 34 H Anion Gap 3 L BUN 21 H Creatinine 0.3 L Creat Clearance w eGFR > 60 Random Glucose 83 Calcium 7.4 L Magnesium 2.1 Total Bilirubin 0.2 AST 19 ALT 17 Alkaline Phosphatase 53 Total Protein 4.6 L Albumin 1.6 L Triglycerides 69 Cancelled Cholesterol 67 Cancelled Total LDL Cholesterol 44 Cancelled HDL Cholesterol 23 L Cancelled Active Medications Generic Name Dose Route Start Last Admin Trade Name Freq PRN Reason Stop Dose Admin Acetaminophen 650 mg 04/03/18 15:41 04/23/18 09:30 Tylenol - PO 650 mg Q6H PRN Administration FEVER Acetylcysteine 200 mg 04/03/18 10:30 04/23/18 06:43 Mucomyst 20 Oral / Inh Use Only* NEB 200 mg Q4HWA RAZ Administration Albuterol Sulfate 1 amp 04/17/18 14:00 04/23/18 06:42 Ventolin 0.083% Nebulizer Soln - NEB 1 amp Q4HWA RAZ Administration Alprazolam 0.25 mg 04/20/18 17:02 04/23/18 09:29 Xanax - PO 0.25 mg Q6H PRN Administration ANXIETY Amino Acids 30 ml 04/13/18 14:45 04/23/18 06:33 Prosource No Carb Liquid Pkt GT 30 ml TID RAZ Administration Budesonide/Formoterol Fumarate 2 puff 04/03/18 22:00 04/23/18 09:34 Symbicort 160/4.5mcg - IH 2 puff BID RAZ Administration Ciprofloxacin 1 drop 04/21/18 14:00 04/23/18 09:31 Ciloxan 0.3% Eye Drops - OU 04/26/18 10:01 1 drop Q4HWA RAZ Administration Clotrimazole 10 mg 04/17/18 18:00 04/23/18 09:34 Mycelex Lasha's - PO 10 mg 5XD RAZ Administration Emtricitabine/Tenofovir 1 tab 04/04/18 10:00 04/23/18 09:32 Truvada PO 1 tab DAILY RAZ Administration Etravirine 100 mg 04/03/18 18:30 04/23/18 09:32 Intelence - PO 100 mg BIDPC RAZ Administration Fluticasone Propionate 1 spray 04/04/18 10:00 04/23/18 09:34 Flonase - NS 1 spray DAILY [facility]Z Administration Furosemide 40 mg 04/23/18 10:50 Lasix Injection - IVPUSH 04/23/18 10:51 ONCE ONE Gabapentin 250 mg 04/03/18 22:00 04/22/18 22:26 Neurontin Oral Liquid - PEG 5 ml BID RAZ Administration Metronidazole 500 mg in 100 mls @ 100 mls/hr 04/17/18 18:00 04/23/18 09:33 Flagyl 500mg Premixed Ivpb - IVPB 100 mls/hr Q8H-IV RAZ Administration Meropenem 1 gm/ Dextrose 100 mls @ 200 mls/hr 04/19/18 14:30 09/21/18 01:21 IVPB 200 mls/hr Q8H-IV RAZ Administration Ibuprofen 600 mg 04/15/18 16:39 04/20/18 12:37 Caldolor Injection - IVPB 600 mg Q6H PRN Administration PAIN LEVEL 1 - 3 Lactobacillus Acidophilus 1 tab 04/03/18 10:45 04/23/18 09:28 Bacid - PO 1 tab DAILY RAZ Administration Mirtazapine 15 mg 04/03/18 22:00 04/22/18 22:27 Remeron - PEG 15 mg HS RAZ Administration Ondansetron HCl 4 mg 04/11/18 19:55 Zofran Injection IVPUSH Q6H PRN NAUSEA AND/OR VOMITING Phenol/Menthol 1 spray 04/17/18 13:57 04/20/18 00:14 Chloraseptic - MM 1 spray Q6HPO PRN Administration SORE THROAT Prednisone 40 mg 04/18/18 10:00 04/23/18 09:28 Deltasone - PO 40 mg DAILY RAZ Administration Raltegravir 400 mg 04/03/18 22:00 04/23/18 09:32 Isentress - NR 400 mg BID RAZ Administration Ranitidine HCl 150 mg 04/19/18 10:00 04/23/18 09:33 Zantac Oral Solution - PEG 150 mg BID RAZ Administration Sertraline HCl 50 mg 04/04/18 10:00 04/23/18 09:33 Zoloft - PO 50 mg DAILY RAZ Administration Tramadol HCl 50 mg 04/16/18 14:13 04/23/18 06:32 Ultram - PO 50 mg Q6H PRN Administration PAIN LEVEL 6-10 Vancomycin HCl 125 mg 04/15/18 18:00 04/23/18 06:33 Vancomycin Oral Solution PO 125 mg Q6HPO RAZ Administration Zolpidem Tartrate 5 mg 04/17/18 21:59 04/23/18 00:36 Ambien - PO 5 mg HS PRN Administration INSOMNIA imaging: CT 04/19/2018: increased size and extent of a large left upper lobe infiltrate seen with interval development of cavitation. small bilateral pleural effusions. ASSESSMENT/PLAN: Patient is a 47 year old female with a significant past medical history of +HIV x 18 years, laryngeal cancer with a chronic trach, PEG tube, hepatitis B and failure to thrive. Patient presented to the ED on 03/28/2018 with symptoms of nausea, vomiting, diarrhea, cough and fever. Hospitalization complicated for acute shortness of breath and patient was transferred to the ICU on 03/30 and placed on a mechanical ventilator. She is currently on meropenem IV and flagyl IV and vancomycin PO. Pulmonary: Hospital acquired pneumonia: as noted on CT. On Meropenem (day #5). ID to address course of antibiotic therapy for cavitary pneumonia. If prolonged, patient to get PICC line and can get antibiotics outpatient. Ct noted to have cavitary pneumonia, not TB per pulmonary. WBC normalized. Chronic trach/shortness of breath/Asthma/COPD/pneumonia: On scheduled duonebs with mucomyst and chest percussion. ID: HIV: Continue home antiviral triple therapy. Card: chest pain, resolved Hypotension: resolved triglyceride panel wnl. Onc: Laryngeal carcinoma, has chronic trach and feeds via peg tube. Psyche: Anxiety history. klonopin increased to q6 prn. Endocrine: hmg a1c 6.2, boderline, monitor . prophy: Heparin tid aspiration precautions. physical therapy fen GT feeds, given boost supplements via gravity and prosource bid (apx 3k per day ) monitor electrolytes prosource zantac On continuous pulse monitoring. Visit type - Emergency Visit Emergency Visit: Yes ED Registration Date: 03/28/18 Care time: The patient presented to the Emergency Department on the above date and was hospitalized for further evaluation of their emergent condition. - New Patient This patient is new to me today: No - Critical Care Critical Care patient: No - Discharge Referral Referred to [facility] No
--- NOTE | 2018-04-23 11:06 | PN ---
Progress Note, Physician History of Present Illness: pulmonary alert,less congested,+ sputum (green) - Current Medication List Current Medications: Active Medications Acetaminophen (Tylenol -) 650 mg PO Q6H PRN PRN Reason: FEVER Last Admin: 04/23/18 09:30 Dose: 650 mg Acetylcysteine (Mucomyst 20 Oral / Inh Use Only*) 200 mg NEB Q4HWA [facility] Last Admin: 04/23/18 06:43 Dose: 200 mg Albuterol Sulfate (Ventolin 0.083% Nebulizer Soln -) 1 amp NEB Q4HWA [facility] Last Admin: 04/23/18 06:42 Dose: 1 amp Alprazolam (Xanax -) 0.25 mg PO Q6H PRN PRN Reason: ANXIETY Last Admin: 04/23/18 09:29 Dose: 0.25 mg Amino Acids (Prosource No Carb Liquid Pkt) 30 ml GT TID [facility] Last Admin: 04/23/18 06:33 Dose: 30 ml Budesonide/Formoterol Fumarate (Symbicort 160/4.5mcg -) 2 puff IH BID [facility] Last Admin: 04/23/18 09:34 Dose: 2 puff Ciprofloxacin (Ciloxan 0.3% Eye Drops -) 1 drop OU Q4HWA [facility] Stop: 04/26/18 10:01 Last Admin: 04/23/18 09:31 Dose: 1 drop Clotrimazole (Mycelex Lasah's -) 10 mg PO 5XD [facility] Last Admin: 04/23/18 09:34 Dose: 10 mg Emtricitabine/Tenofovir (Truvada) 1 tab PO DAILY [facility] Last Admin: 04/23/18 09:32 Dose: 1 tab Etravirine (Intelence -) 100 mg PO BIDPC [facility] Last Admin: 04/23/18 09:32 Dose: 100 mg Fluticasone Propionate (Flonase -) 1 spray NS DAILY [facility] Last Admin: 04/23/18 09:34 Dose: 1 spray Gabapentin (Neurontin Oral Liquid -) 250 mg PEG BID [facility] Last Admin: 04/22/18 22:26 Dose: 5 ml Metronidazole (Flagyl 500mg Premixed Ivpb -) 500 mg in 100 mls @ 100 mls/hr IVPB Q8H-IV [facility] Last Admin: 04/23/18 09:33 Dose: 100 mls/hr Meropenem 1 gm/ Dextrose 100 mls @ 200 mls/hr IVPB Q8H-IV [facility] Last Admin: 04/23/18 01:21 Dose: 200 mls/hr Ibuprofen (Caldolor Injection -) 600 mg IVPB Q6H PRN PRN Reason: PAIN LEVEL 1 - 3 Last Admin: 04/20/18 12:37 Dose: 600 mg Lactobacillus Acidophilus (Bacid -) 1 tab PO DAILY [facility] Last Admin: 04/23/18 09:28 Dose: 1 tab Mirtazapine (Remeron -) 15 mg PEG HS [facility] Last Admin: 04/22/18 22:27 Dose: 15 mg Ondansetron HCl (Zofran Injection) 4 mg IVPUSH Q6H PRN PRN Reason: NAUSEA AND/OR VOMITING Phenol/Menthol (Chloraseptic -) 1 spray MM Q6HPO PRN PRN Reason: SORE THROAT Last Admin: 04/20/18 00:14 Dose: 1 spray Prednisone (Deltasone -) 40 mg PO DAILY [facility] Last Admin: 04/23/18 09:28 Dose: 40 mg Raltegravir (Isentress -) 400 mg NR BID [facility] Last Admin: 04/23/18 09:32 Dose: 400 mg Ranitidine HCl (Zantac Oral Solution -) 150 mg PEG BID [facility] Last Admin: 04/23/18 09:33 Dose: 150 mg Sertraline HCl (Zoloft -) 50 mg PO DAILY [facility] Last Admin: 04/23/18 09:33 Dose: 50 mg Tramadol HCl (Ultram -) 50 mg PO Q6H PRN PRN Reason: PAIN LEVEL 6-10 Last Admin: 04/23/18 06:32 Dose: 50 mg Vancomycin HCl (Vancomycin Oral Solution) 125 mg PO Q6HPO [facility] Last Admin: 04/23/18 06:33 Dose: 125 mg Zolpidem Tartrate (Ambien -) 5 mg PO HS PRN PRN Reason: INSOMNIA Last Admin: 04/23/18 00:36 Dose: 5 mg - Objective Vital Signs: Vital Signs Temperature 98.6 F 04/23/18 02:23 Pulse Rate 96 H 04/23/18 06:00 Respiratory Rate 20 04/23/18 06:00 Blood Pressure 128/56 04/23/18 06:00 O2 Sat by Pulse Oximetry (%) 99 04/22/18 14:50 Constitutional: Yes: Calm, Thin Eyes: Yes: WNL HENT: Yes: WNL Neck: Yes: Supple Cardiovascular: Yes: Regular Rate and Rhythm, S1, S2 Respiratory: Yes: Rhonchi (shania rhonchi) Gastrointestinal: Yes: Normal Bowel Sounds, Soft Extremities: Yes: WNL Edema: Yes Labs: CBC, BMP 04/23/18 05:30 04/23/18 05:30 INR, PTT INR 1.02 (0.83-1.09) 04/09/18 09:27 Problem List - Problems (1) Acute on chronic respiratory failure with hypoxia and hypercapnia Code(s): J96.21 - ACUTE AND CHRONIC RESPIRATORY FAILURE WITH HYPOXIA; J96.22 - ACUTE AND CHRONIC RESPIRATORY FAILURE WITH HYPERCAPNIA (2) Laryngeal carcinoma Code(s): C32.9 - MALIGNANT NEOPLASM OF LARYNX, UNSPECIFIED (3) Pneumonia Code(s): J18.9 - PNEUMONIA, UNSPECIFIED ORGANISM Qualifiers: Pneumonia type: due to unspecified organism Laterality: bilateral Lung location: unspecified part of lung Qualified Code(s): J18.9 - Pneumonia, unspecified organism (4) AIDS Code(s): B20 - HUMAN IMMUNODEFICIENCY VIRUS [HIV] DISEASE (5) Difficulty breathing Code(s): R06.89 - OTHER ABNORMALITIES OF BREATHING (6) HIV (human immunodeficiency virus infection) Code(s): Z21 - ASYMPTOMATIC HUMAN IMMUNODEFICIENCY VIRUS INFECTION STATUS (7) Head and neck cancer Code(s): C76.0 - MALIGNANT NEOPLASM OF HEAD, FACE AND NECK Assessment/Plan A/P Acute on Chronic Hypoxic Respiratory Failure Bilateral Pneumonia Cavitary pneumonia ARDS resolved Klebsiella Bacteremia Sepsis HIV/AIDS h/o Laryngeal Ca s/p trach/PEG Pleural effusion exudate likely uncomplicated parapneumonic effusion Fever - antibiotics as per ID - bacid - inhaled bronchodilators with mucomyst - pain control - chest PT/bed percussion - taper Fio2 to keep SpO2 >90% - ART - DVT prophylaxis - steroid taper - f/u chest x-rays lasix for edema DR MAYER
[2018-04-23] MEDS: MIRTAZAPINE 15 MG TABLET (FP) PEG SCH (21:44)
[2018-04-24] MEDS ORDERED: PT OWN MED DRAWER 7, Y5N ONE ×2 (02:06→17:34)
[2018-04-24] MEDS: MEROPENEM 1 GM in DEXTROSE 5%-WATER 100 ML IVPB SCH ×3 (02:10→18:10)
--- NOTE | 2018-04-24 05:31 | PN ---
Progress Note, Physician Chief Complaint: Pt, A&Ox3; no chest pain unless coughs; continued dyspnea. History of Present Illness: The patient is a 47 year old female with a history of laryngeal cancer s/p trach and peg, AIDs, HIV, Hep B, failure to thrive who presents for evaluation of difficulty breath ing, vomiting, and chest pain. The patient reports a 4 day history of worsening right sided chest pain, nausea, vomiting and difficulty breathing prompting her presentation to the ED for further evaluation. She notes that the chest pain initially was sharp, but now is a tightness worse with deep inspiration. She notes purulent cough as well with increased mucus from her trach. She has also noted fevers to 103 at home that has been minimally responsive to tylenol. The patient otherwise denies chills, abdominal pain, or changes with urination or bowel movements. Asked to see pt due to sudden central strong chest tightness that occured last night after pt had a prolonged coughing spell. The discomfor lasted for a few seconds. She denies having a hx of chest pain except with or after cough. She usually walks rapidly and "outwalks everybody", often walking a few blocks in a day, though gets fatigued walking uphill. - Current Medication List Current Medications: Active Medications Acetaminophen (Tylenol -) 650 mg PO Q6H PRN PRN Reason: FEVER Last Admin: 04/23/18 09:30 Dose: 650 mg Acetylcysteine (Mucomyst 20 Oral / Inh Use Only*) 200 mg NEB Q4HWA [facility] Last Admin: 04/23/18 22:20 Dose: 200 mg Albuterol Sulfate (Ventolin 0.083% Nebulizer Soln -) 1 amp NEB Q4HWA [facility] Last Admin: 04/23/18 22:20 Dose: 1 amp Alprazolam (Xanax -) 0.25 mg PO Q6H PRN PRN Reason: ANXIETY Last Admin: 04/23/18 18:17 Dose: 0.25 mg Amino Acids (Prosource No Carb Liquid Pkt) 30 ml GT TID [facility] Last Admin: 04/23/18 21:44 Dose: 30 ml Budesonide/Formoterol Fumarate (Symbicort 160/4.5mcg -) 2 puff IH BID [facility] Last Admin: 04/23/18 23:08 Dose: 2 puff Ciprofloxacin (Ciloxan 0.3% Eye Drops -) 1 drop OU Q4HWA [facility] Stop: 04/26/18 10:01 Last Admin: 04/23/18 21:44 Dose: 1 drop Clotrimazole (Mycelex Lasha's -) 10 mg PO 5XD [facility] Last Admin: 04/23/18 21:43 Dose: 10 mg Emtricitabine/Tenofovir (Truvada) 1 tab PO DAILY [facility] Last Admin: 04/23/18 09:32 Dose: 1 tab Etravirine (Intelence -) 100 mg PO BIDPC [facility] Last Admin: 04/23/18 18:19 Dose: 100 mg Fluticasone Propionate (Flonase -) 1 spray NS DAILY [facility] Last Admin: 04/23/18 09:34 Dose: 1 spray Gabapentin (Neurontin Oral Liquid -) 250 mg PEG BID [facility] Last Admin: 04/23/18 21:43 Dose: 5 ml Metronidazole (Flagyl 500mg Premixed Ivpb -) 500 mg in 100 mls @ 100 mls/hr IVPB Q8H-IV [facility] Last Admin: 04/24/18 02:10 Dose: 100 mls/hr Meropenem 1 gm/ Dextrose 100 mls @ 200 mls/hr IVPB Q8H-IV [facility] Last Admin: 04/24/18 02:10 Dose: 200 mls/hr Ibuprofen (Caldolor Injection -) 600 mg IVPB Q6H PRN PRN Reason: PAIN LEVEL 1 - 3 Last Admin: 04/20/18 12:37 Dose: 600 mg Lactobacillus Acidophilus (Bacid -) 1 tab PO DAILY [facility] Last Admin: 04/23/18 09:28 Dose: 1 tab Mirtazapine (Remeron -) 15 mg PEG HS [facility] Last Admin: 04/23/18 21:44 Dose: 15 mg Ondansetron HCl (Zofran Injection) 4 mg IVPUSH Q6H PRN PRN Reason: NAUSEA AND/OR VOMITING Phenol/Menthol (Chloraseptic -) 1 spray MM Q6HPO PRN PRN Reason: SORE THROAT Last Admin: 04/20/18 00:14 Dose: 1 spray Prednisone (Deltasone -) 40 mg PO DAILY [facility] Last Admin: 04/23/18 09:28 Dose: 40 mg Raltegravir (Isentress -) 400 mg NR BID [facility] Last Admin: 04/23/18 21:42 Dose: 400 mg Ranitidine HCl (Zantac Oral Solution -) 150 mg PEG BID [facility] Last Admin: 04/23/18 21:44 Dose: 150 mg Sertraline HCl (Zoloft -) 50 mg PO DAILY [facility] Last Admin: 04/23/18 09:33 Dose: 50 mg Tramadol HCl (Ultram -) 50 mg PO Q6H PRN PRN Reason: PAIN LEVEL 6-10 Last Admin: 04/23/18 21:51 Dose: 50 mg Vancomycin HCl (Vancomycin Oral Solution) 125 mg PO Q6HPO [facility] Last Admin: 04/23/18 23:15 Dose: 125 mg Zolpidem Tartrate (Ambien -) 5 mg PO HS PRN PRN Reason: INSOMNIA Last Admin: 04/23/18 23:15 Dose: 5 mg - Objective Vital Signs: Vital Signs Temperature 99.4 F 04/23/18 22:00 Pulse Rate 98 H 04/24/18 02:01 Respiratory Rate 20 04/24/18 02:01 Blood Pressure 122/77 04/24/18 02:01 O2 Sat by Pulse Oximetry (%) 96 04/23/18 21:00 Constitutional: Yes: Calm Eyes: Yes: WNL HENT: Yes: WNL Neck: Yes: Other (tracheostomy) Cardiovascular: Yes: S1, S2 Respiratory: Yes: Diminished, Poor Air Entry, Rales, Rhonchi, SOB Gastrointestinal: Yes: Soft ...Rectal Exam: Yes: Deferred Genitourinary: Yes: Anuria Breast(s): Yes: WNL Musculoskeletal: Yes: Muscle Weakness Extremities: Yes: Cool Edema: No Peripheral Pulses WNL: Yes Integumentary: Yes: Tattoos Neurological: Yes: Alert, Oriented, Weakness Psychiatric: Yes: Alert, Oriented Labs: CBC, BMP 04/23/18 05:30 04/23/18 05:30 INR, PTT INR 1.02 (0.83-1.09) 04/09/18 09:27 - ....Imaging Cat Scan: Image Reviewed Problem List - Problems (1) Acute on chronic respiratory failure with hypoxia and hypercapnia Assessment/Plan: tracheostomy. On bronchodilators, O2, steroids per pumonary. on multiple antibiotics for bacteremia. Code(s): J96.21 - ACUTE AND CHRONIC RESPIRATORY FAILURE WITH HYPOXIA; J96.22 - ACUTE AND CHRONIC RESPIRATORY FAILURE WITH HYPERCAPNIA (2) Laryngeal carcinoma Assessment/Plan: on O2, bronchodilators, steroids per pumonologist. s/p tracheostomy. f/u with oncologist. Code(s): C32.9 - MALIGNANT NEOPLASM OF LARYNX, UNSPECIFIED (3) AIDS Assessment/Plan: medication regimen per ID. Nutrition, physical rehabilitation. Maintain hydration. Code(s): B20 - HUMAN IMMUNODEFICIENCY VIRUS [HIV] DISEASE (4) Tobacco dependence Code(s): F17.200 - NICOTINE DEPENDENCE, UNSPECIFIED, UNCOMPLICATED (5) Tracheostomy dependence Code(s): Z93.0 - TRACHEOSTOMY STATUS (6) Atypical chest pain Assessment/Plan: Chest pain after coughing; no prior hx chest pain. She walks relatively frequently, and denies exertional chest discomfort. No acute STT changes on EKG. TNI <0.02 on multiple checks. Cholesterol well-controlled. TSH WNL. ECHO 04/08/2018: normal LVEF; normal chamber sizes; small pericardial effusion without hemodynamic compromise (effusion unchanged on repeat ECHO several days later). Code(s): R07.89 - OTHER CHEST PAIN (7) Acute on chronic diastolic CHF (congestive heart failure) Assessment/Plan: Dyspnea on mild exertion. Pleural effusion on CXR. F/u BNP 291 (was 212.6 in 2016). ECHO: normal LVEF; small pericardial effusion without hemodynamic compromise, unchanged in size. F/u BUN/Cr, Is and Os, daily weight, electrolytes. Code(s): I50.33 - ACUTE ON CHRONIC DIASTOLIC (CONGESTIVE) HEART FAILURE (8) Pericardial effusion Assessment/Plan: small pericardial effusion; no hemodynamic compromise; unchanged from 04/08/18 to 04/12/18. Normal LVEF Code(s): I31.3 - PERICARDIAL EFFUSION (NONINFLAMMATORY) (9) Leukocytosis Assessment/Plan: Elevated WBCs, with periodic low-grade fevers. On multiple antibiotics per ID. F/u cultures; hx Klebsiella Maintain hydration. Code(s): D72.829 - ELEVATED WHITE BLOOD CELL COUNT, UNSPECIFIED (10) Hypokalemia Assessment/Plan: replete; keep >3.5. Code(s): E87.6 - HYPOKALEMIA (11) Anxiety Code(s): F41.9 - ANXIETY DISORDER, UNSPECIFIED
--- NOTE | 2018-04-24 05:41 | PN ---
Progress Note, Physician Chief Complaint: Pt, A&Ox3; no chest pain unless coughs; easily dyspneic. History of Present Illness: The patient is a 47 year old female with a history of laryngeal cancer s/p trach and peg, AIDs, HIV, Hep B, failure to thrive who presents for evaluation of difficulty breath ing, vomiting, and chest pain. The patient reports a 4 day history of worsening right sided chest pain, nausea, vomiting and difficulty breathing prompting her presentation to the ED for further evaluation. She notes that the chest pain initially was sharp, but now is a tightness worse with deep inspiration. She notes purulent cough as well with increased mucus from her trach. She has also noted fevers to 103 at home that has been minimally responsive to tylenol. The patient otherwise denies chills, abdominal pain, or changes with urination or bowel movements. Asked to see pt due to sudden central strong chest tightness that occured last night after pt had a prolonged coughing spell. The discomfor lasted for a few seconds. She denies having a hx of chest pain except with or after cough. She usually walks rapidly and "outwalks everybody", often walking a few blocks in a day, though gets fatigued walking uphill. - Current Medication List Current Medications: Active Medications Acetaminophen (Tylenol -) 650 mg PO Q6H PRN PRN Reason: FEVER Last Admin: 04/23/18 09:30 Dose: 650 mg Acetylcysteine (Mucomyst 20 Oral / Inh Use Only*) 200 mg NEB Q4HWA [facility] Last Admin: 04/23/18 22:20 Dose: 200 mg Albuterol Sulfate (Ventolin 0.083% Nebulizer Soln -) 1 amp NEB Q4HWA [facility] Last Admin: 04/23/18 22:20 Dose: 1 amp Alprazolam (Xanax -) 0.25 mg PO Q6H PRN PRN Reason: ANXIETY Last Admin: 04/23/18 18:17 Dose: 0.25 mg Amino Acids (Prosource No Carb Liquid Pkt) 30 ml GT TID [facility] Last Admin: 04/23/18 21:44 Dose: 30 ml Budesonide/Formoterol Fumarate (Symbicort 160/4.5mcg -) 2 puff IH BID [facility] Last Admin: 04/23/18 23:08 Dose: 2 puff Ciprofloxacin (Ciloxan 0.3% Eye Drops -) 1 drop OU Q4HWA [facility] Stop: 04/26/18 10:01 Last Admin: 04/23/18 21:44 Dose: 1 drop Clotrimazole (Mycelex Lasha's -) 10 mg PO 5XD [facility] Last Admin: 04/23/18 21:43 Dose: 10 mg Emtricitabine/Tenofovir (Truvada) 1 tab PO DAILY [facility] Last Admin: 04/23/18 09:32 Dose: 1 tab Etravirine (Intelence -) 100 mg PO BIDPC [facility] Last Admin: 04/23/18 18:19 Dose: 100 mg Fluticasone Propionate (Flonase -) 1 spray NS DAILY [facility] Last Admin: 04/23/18 09:34 Dose: 1 spray Gabapentin (Neurontin Oral Liquid -) 250 mg PEG BID [facility] Last Admin: 04/23/18 21:43 Dose: 5 ml Metronidazole (Flagyl 500mg Premixed Ivpb -) 500 mg in 100 mls @ 100 mls/hr IVPB Q8H-IV [facility] Last Admin: 04/24/18 02:10 Dose: 100 mls/hr Meropenem 1 gm/ Dextrose 100 mls @ 200 mls/hr IVPB Q8H-IV [facility] Last Admin: 04/24/18 02:10 Dose: 200 mls/hr Ibuprofen (Caldolor Injection -) 600 mg IVPB Q6H PRN PRN Reason: PAIN LEVEL 1 - 3 Last Admin: 04/20/18 12:37 Dose: 600 mg Lactobacillus Acidophilus (Bacid -) 1 tab PO DAILY [facility] Last Admin: 04/23/18 09:28 Dose: 1 tab Mirtazapine (Remeron -) 15 mg PEG HS [facility] Last Admin: 04/23/18 21:44 Dose: 15 mg Ondansetron HCl (Zofran Injection) 4 mg IVPUSH Q6H PRN PRN Reason: NAUSEA AND/OR VOMITING Phenol/Menthol (Chloraseptic -) 1 spray MM Q6HPO PRN PRN Reason: SORE THROAT Last Admin: 04/20/18 00:14 Dose: 1 spray Prednisone (Deltasone -) 40 mg PO DAILY [facility] Last Admin: 04/23/18 09:28 Dose: 40 mg Raltegravir (Isentress -) 400 mg NR BID [facility] Last Admin: 04/23/18 21:42 Dose: 400 mg Ranitidine HCl (Zantac Oral Solution -) 150 mg PEG BID [facility] Last Admin: 04/23/18 21:44 Dose: 150 mg Sertraline HCl (Zoloft -) 50 mg PO DAILY [facility] Last Admin: 04/23/18 09:33 Dose: 50 mg Tramadol HCl (Ultram -) 50 mg PO Q6H PRN PRN Reason: PAIN LEVEL 6-10 Last Admin: 04/23/18 21:51 Dose: 50 mg Vancomycin HCl (Vancomycin Oral Solution) 125 mg PO Q6HPO [facility] Last Admin: 04/23/18 23:15 Dose: 125 mg Zolpidem Tartrate (Ambien -) 5 mg PO HS PRN PRN Reason: INSOMNIA Last Admin: 04/23/18 23:15 Dose: 5 mg - Objective Vital Signs: Vital Signs Temperature 99.4 F 04/23/18 22:00 Pulse Rate 98 H 04/24/18 02:01 Respiratory Rate 20 04/24/18 02:01 Blood Pressure 122/77 04/24/18 02:01 O2 Sat by Pulse Oximetry (%) 96 04/23/18 21:00 Constitutional: Yes: Anxious, Thin Eyes: Yes: WNL HENT: Yes: WNL Neck: Yes: WNL, Other (tracheostomy) Cardiovascular: Yes: Tachycardia, S1, S2 Respiratory: Yes: Rales, Rhonchi, SOB, Tachypnea Gastrointestinal: Yes: Soft, Other (PEG) ...Rectal Exam: Yes: Deferred Genitourinary: Yes: Anuria Breast(s): Yes: WNL Musculoskeletal: Yes: Muscle Weakness Extremities: Yes: Cool Edema: No Peripheral Pulses WNL: Yes Integumentary: Yes: Other (trach site without discharge/redness) Neurological: Yes: Alert, Oriented, Weakness Psychiatric: Yes: Alert, Oriented Labs: CBC, BMP 04/23/18 05:30 04/23/18 05:30 INR, PTT INR 1.02 (0.83-1.09) 04/09/18 09:27 Abnormal Lab Results 04/23/18 04/23/18 05:30 05:30 RBC 2.55 L Hgb 8.4 L Hct 24.9 L MCV 97.4 H Carbon Dioxide 34 H Anion Gap 3 L BUN 21 H Creatinine 0.3 L Calcium 7.4 L Total Protein 4.6 L Albumin 1.6 L HDL Cholesterol 23 L Problem List - Problems (1) Acute on chronic respiratory failure with hypoxia and hypercapnia Assessment/Plan: tracheostomy. On bronchodilators, O2, steroids per pulmonary. on multiple antibiotics for bacteremia. Code(s): J96.21 - ACUTE AND CHRONIC RESPIRATORY FAILURE WITH HYPOXIA; J96.22 - ACUTE AND CHRONIC RESPIRATORY FAILURE WITH HYPERCAPNIA (2) Laryngeal carcinoma Assessment/Plan: on O2, bronchodilators, steroids per pumonologist. s/p tracheostomy. f/u with oncologist. Code(s): C32.9 - MALIGNANT NEOPLASM OF LARYNX, UNSPECIFIED (3) AIDS Assessment/Plan: medication regimen per ID. Nutrition, physical rehabilitation. Maintain hydration. Code(s): B20 - HUMAN IMMUNODEFICIENCY VIRUS [HIV] DISEASE (4) Tobacco dependence Code(s): F17.200 - NICOTINE DEPENDENCE, UNSPECIFIED, UNCOMPLICATED (5) Tracheostomy dependence Code(s): Z93.0 - TRACHEOSTOMY STATUS (6) Atypical chest pain Assessment/Plan: Chest pain after coughing; no prior hx chest pain. She walks relatively frequently, and denies exertional chest discomfort. No acute STT changes on EKG. TNI <0.02 on multiple checks. Cholesterol well-controlled. TSH WNL. ECHO 04/08/2018: normal LVEF; normal chamber sizes; small pericardial effusion without hemodynamic compromise (effusion unchanged on repeat ECHO several days later). Code(s): R07.89 - OTHER CHEST PAIN (7) Acute on chronic diastolic CHF (congestive heart failure) Assessment/Plan: Dyspnea on mild exertion. Pleural effusion on CXR. F/u BNP 291 (was 212.6 in 2016). ECHO: normal LVEF; small pericardial effusion without hemodynamic compromise, unchanged in size. On IV furosemide prn; used cautiously due to hypotensive episodes. F/u BUN/Cr, Is and Os, daily weight, electrolytes. Code(s): I50.33 - ACUTE ON CHRONIC DIASTOLIC (CONGESTIVE) HEART FAILURE (8) Pericardial effusion Code(s): I31.3 - PERICARDIAL EFFUSION (NONINFLAMMATORY) (9) Leukocytosis Code(s): D72.829 - ELEVATED WHITE BLOOD CELL COUNT, UNSPECIFIED (10) Hypokalemia Code(s): E87.6 - HYPOKALEMIA (11) Anxiety Code(s): F41.9 - ANXIETY DISORDER, UNSPECIFIED
[2018-04-24] MEDS ORDERED: ACETYLCYSTEINE 20% 200MG/ML 30 ML VIAL *FOR ORAL / INH USE ONLY ONE (05:47)
[2018-04-24] MEDS: traMADol HCL 50 MG TABLET PO PRN ×2 (06:41→18:10)
[2018-04-24] MEDS: AMINO ACIDS/PROTEIN HYDROLYS 30 ML LIQUID.PKT GT SCH ×3 (06:41→21:54)
[2018-04-24] MEDS: VANCOMYCIN 250 MG/5 ML ORAL SOLUTION PO SCH ×3 (06:42→23:15)
[2018-04-24] MEDS: ACETYLCYSTEINE 20% 200MG/ML 4 ML VIAL *FOR ORAL / INH USE ONLY NEB SCH ×5 (06:52→21:10)
[2018-04-24] MEDS: ALBUTEROL SO4 0.083% IH SOL 2.5 MG/3 ML VIAL.NEB. NEB SCH ×5 (06:53→21:10)
[2018-04-24] MEDS ORDERED: FUROSEMIDE 40 MG/4 ML INJECTABLE VIAL IVPUSH ONE (07:50)
[2018-04-24] MEDS ORDERED: predniSONE 20 MG TABLET (UD) PO SCH (10:02)
--- NOTE | 2018-04-24 10:02 | PN ---
Progress Note, Physician History of Present Illness: pulmonary alert,feeling better,less congested - Current Medication List Current Medications: Active Medications Acetaminophen (Tylenol -) 650 mg PO Q6H PRN PRN Reason: FEVER Last Admin: 04/23/18 09:30 Dose: 650 mg Acetylcysteine (Mucomyst 20 Oral / Inh Use Only*) 200 mg NEB Q4HWA [facility] Last Admin: 04/24/18 06:52 Dose: 200 mg Albuterol Sulfate (Ventolin 0.083% Nebulizer Soln -) 1 amp NEB Q4HWA [facility] Last Admin: 04/24/18 06:53 Dose: 1 amp Alprazolam (Xanax -) 0.25 mg PO Q6H PRN PRN Reason: ANXIETY Last Admin: 04/23/18 18:17 Dose: 0.25 mg Amino Acids (Prosource No Carb Liquid Pkt) 30 ml GT TID [facility] Last Admin: 04/24/18 06:41 Dose: 30 ml Budesonide/Formoterol Fumarate (Symbicort 160/4.5mcg -) 2 puff IH BID [facility] Last Admin: 04/23/18 23:08 Dose: 2 puff Ciprofloxacin (Ciloxan 0.3% Eye Drops -) 1 drop OU Q4HWA [facility] Stop: 04/26/18 10:01 Last Admin: 04/23/18 21:44 Dose: 1 drop Clotrimazole (Mycelex Lasha's -) 10 mg PO 5XD [facility] Last Admin: 04/23/18 21:43 Dose: 10 mg Emtricitabine/Tenofovir (Truvada) 1 tab PO DAILY [facility] Last Admin: 04/23/18 09:32 Dose: 1 tab Etravirine (Intelence -) 100 mg PO BIDPC [facility] Last Admin: 04/23/18 18:19 Dose: 100 mg Fluticasone Propionate (Flonase -) 1 spray NS DAILY [facility] Last Admin: 04/23/18 09:34 Dose: 1 spray Gabapentin (Neurontin Oral Liquid -) 250 mg PEG BID [facility] Last Admin: 04/23/18 21:43 Dose: 5 ml Metronidazole (Flagyl 500mg Premixed Ivpb -) 500 mg in 100 mls @ 100 mls/hr IVPB Q8H-IV [facility] Last Admin: 04/24/18 02:10 Dose: 100 mls/hr Meropenem 1 gm/ Dextrose 100 mls @ 200 mls/hr IVPB Q8H-IV [facility] Last Admin: 04/24/18 02:10 Dose: 200 mls/hr Ibuprofen (Caldolor Injection -) 600 mg IVPB Q6H PRN PRN Reason: PAIN LEVEL 1 - 3 Last Admin: 04/20/18 12:37 Dose: 600 mg Lactobacillus Acidophilus (Bacid -) 1 tab PO DAILY [facility] Last Admin: 04/23/18 09:28 Dose: 1 tab Mirtazapine (Remeron -) 15 mg PEG HS [facility] Last Admin: 04/23/18 21:44 Dose: 15 mg Ondansetron HCl (Zofran Injection) 4 mg IVPUSH Q6H PRN PRN Reason: NAUSEA AND/OR VOMITING Phenol/Menthol (Chloraseptic -) 1 spray MM Q6HPO PRN PRN Reason: SORE THROAT Last Admin: 04/20/18 00:14 Dose: 1 spray Prednisone (Deltasone -) 40 mg PO DAILY [facility] Last Admin: 04/23/18 09:28 Dose: 40 mg Raltegravir (Isentress -) 400 mg NR BID [facility] Last Admin: 04/23/18 21:42 Dose: 400 mg Ranitidine HCl (Zantac Oral Solution -) 150 mg PEG BID [facility] Last Admin: 04/23/18 21:44 Dose: 150 mg Sertraline HCl (Zoloft -) 50 mg PO DAILY [facility] Last Admin: 04/23/18 09:33 Dose: 50 mg Tramadol HCl (Ultram -) 50 mg PO Q6H PRN PRN Reason: PAIN LEVEL 6-10 Last Admin: 04/24/18 06:41 Dose: 50 mg Vancomycin HCl (Vancomycin Oral Solution) 125 mg PO Q6HPO [facility] Last Admin: 04/24/18 06:42 Dose: 125 mg Zolpidem Tartrate (Ambien -) 5 mg PO HS PRN PRN Reason: INSOMNIA Last Admin: 04/23/18 23:15 Dose: 5 mg - Objective Vital Signs: Vital Signs Temperature 99.2 F 04/24/18 06:29 Pulse Rate 96 H 04/24/18 08:36 Respiratory Rate 20 04/24/18 08:36 Blood Pressure 119/82 04/24/18 08:36 O2 Sat by Pulse Oximetry (%) 96 04/23/18 21:00 Constitutional: Yes: Calm, Thin Eyes: Yes: WNL HENT: Yes: WNL Neck: Yes: Supple (trach) Respiratory: Yes: Rhonchi (less rhonchi shania) Gastrointestinal: Yes: Normal Bowel Sounds, Soft Extremities: Yes: WNL Edema: No Labs: CBC, BMP 04/23/18 05:30 04/23/18 05:30 INR, PTT INR 1.02 (0.83-1.09) 04/09/18 09:27 Problem List - Problems (1) Acute on chronic respiratory failure with hypoxia and hypercapnia Code(s): J96.21 - ACUTE AND CHRONIC RESPIRATORY FAILURE WITH HYPOXIA; J96.22 - ACUTE AND CHRONIC RESPIRATORY FAILURE WITH HYPERCAPNIA (2) Laryngeal carcinoma Code(s): C32.9 - MALIGNANT NEOPLASM OF LARYNX, UNSPECIFIED (3) Pneumonia Code(s): J18.9 - PNEUMONIA, UNSPECIFIED ORGANISM Qualifiers: Pneumonia type: due to unspecified organism Laterality: bilateral Lung location: unspecified part of lung Qualified Code(s): J18.9 - Pneumonia, unspecified organism (4) AIDS Code(s): B20 - HUMAN IMMUNODEFICIENCY VIRUS [HIV] DISEASE (5) Difficulty breathing Code(s): R06.89 - OTHER ABNORMALITIES OF BREATHING (6) HIV (human immunodeficiency virus infection) Code(s): Z21 - ASYMPTOMATIC HUMAN IMMUNODEFICIENCY VIRUS INFECTION STATUS (7) Head and neck cancer Code(s): C76.0 - MALIGNANT NEOPLASM OF HEAD, FACE AND NECK Assessment/Plan A/P Acute on Chronic Hypoxic Respiratory Failure Bilateral Pneumonia Cavitary pneumonia ARDS resolved Klebsiella Bacteremia Sepsis HIV/AIDS h/o Laryngeal Ca s/p trach/PEG Pleural effusion exudate likely uncomplicated parapneumonic effusion Fever - antibiotics as per ID - bacid - inhaled bronchodilators with mucomyst - pain control - chest PT/bed percussion - taper Fio2 to keep SpO2 >90% - ART - DVT prophylaxis - steroid taper - f/u chest x-rays lasix for edema DR MAYER
[2018-04-24] MEDS: SERTRALINE HCL 50 MG TABLET (FP) PO SCH (10:57)
[2018-04-24] MEDS: RANITIDINE HCL 150 MG/10 ML UNIT-DOSE PEG SCH ×2 (10:57→21:53)
[2018-04-24] MEDS: CIPROFLOXACIN HCL 0.3% OPHTH 2.5ML BOTTLE OU SCH ×2 (10:59→22:30)
[2018-04-24] MEDS: CLOTRIMAZOLE 10 MG TROCHE (FP) PO SCH ×4 (10:59→22:07)
[2018-04-24] MEDS: LACTOBACILLUS ACIDOPHILUS 1 TABLET PO SCH (11:01)
[2018-04-24] MEDS: RALTEGRAVIR POTASSIUM 400 MG TAB NR SCH ×2 (11:02→21:55)
[2018-04-24] MEDS: EMTRICITABINE 200MG/TENOFOVIR 300MG PO SCH (11:02)
[2018-04-24] MEDS: BUDESONIDE/FORMETEROL FUMARATE 160/4.5 mcg INHALER IH SCH ×2 (11:03→22:29)
[2018-04-24] MEDS: ETRAVIRINE 100 MG TABLET PO SCH ×2 (11:03→18:11)
[2018-04-24] MEDS: FLUTICASONE PROP 0.05% 16 GM NASAL SPRAY NS SCH (11:03)
[2018-04-24] MEDS: predniSONE 20 MG TABLET (UD) PO SCH (11:04)
[2018-04-24 11:36] LABS: BASO % 0.2 % (0-2.0); EOS % 0.3 % (0-4.5); HEMATOCRIT 30.7 % (32.4-45.2); HEMOGLOBIN 10.3 GM/dL (10.7-15.3); LYMPH % 11.5 % (8-40); MCH 32.6 pg (25.7-33.7); MCHC 33.4 g/dl (32.0-36.0); MEAN CELL VOLUME 97.6 fl (80-96); MEAN PLT VOLUME 8.3 fl (7.5-11.1); MONO % 7.2 % (3.8-10.2); NEUT % 80.8 % (42.8-82.8); PLATELET COUNT 537 K/MM3 (134-434); RBC 3.15 M/mm3 (3.60-5.2); RDW 15.1 % (11.6-15.6); WHITE BLOOD COUNT 10.1 K/mm3 (4.0-10.0)
[2018-04-24] MEDS ORDERED: FUROSEMIDE 40 MG/4 ML INJECTABLE VIAL ONE (12:11)
[2018-04-24 12:23] LABS: ALBUMIN 2.1 g/dl (3.4-5.0); ALK PHOS 66 U/L (45-117); ANION GAP 6 MMOL/L (8-16); BILIRUBIN,TOTAL 0.3 mg/dL (0.2-1); BLOOD UREA NITROGEN 25 mg/dL (7-18); CALCIUM 8.4 mg/dL (8.5-10.1); CHLORIDE 102 mmol/L (98-107); CO2 33 mmol/L (21-32); CREATININE 0.3 mg/dL (0.55-1.3); GLUCOSE,RANDOM 121 mg/dL (74-106); POTASSIUM 3.7 mmol/L (3.5-5.1); SGOT/AST 20 U/L (15-37); SGPT/ALT 21 U/L (13-61); SODIUM 140 mmol/L (136-145); TOT PROT 5.6 g/dl (6.4-8.2)
--- NOTE | 2018-04-24 15:04 | PN ---
Physical Exam: SUBJECTIVE: Patient seen and examined at the bedside. feeling better today. OBJECTIVE: Vital Signs Period Temp Pulse Resp BP Sys/Lisa Pulse Ox Last 24 Hr 99.0 F-99.8 F 96-104 20-20 116-129/71-82 96-96 GENERAL: The patient is awake, alert, and fully oriented, in no acute distress HEAD: Normal with no signs of trauma. EYES: PERRL, extraocular movements intact, sclera anicteric, conjunctiva clear. No ptosis. ENT: trach collar, frequently suctions herself NECK: Trachea midline, full range of motion, supple. LUNGS: Breath sounds with bilateral scattered rhonchi, overall improving since yesterday, coughing up some green sputum. HEART: Regular rate and rhythm ABDOMEN: + peg tube EXTREMITIES: mild edema NEUROLOGICAL: Normal speech, steady gait PSYCH: calm, cooperative SKIN: Warm, dry, normal turgor, no rashes or lesions noted Laboratory Results - last 24 hr 04/24/18 04/24/18 11:00 11:00 WBC 10.1 H RBC 3.15 L Hgb 10.3 L Hct 30.7 L D MCV 97.6 H MCH 32.6 MCHC 33.4 RDW 15.1 Plt Count 537 H D MPV 8.3 Absolute Neuts (auto) 8.1 H Neutrophils % 80.8 D Lymphocytes % 11.5 D Monocytes % 7.2 Eosinophils % 0.3 Basophils % 0.2 Nucleated RBC % 0 Sodium 140 Potassium 3.7 Chloride 102 Carbon Dioxide 33 H Anion Gap 6 L BUN 25 H Creatinine 0.3 L Creat Clearance w eGFR > 60 Random Glucose 121 H Calcium 8.4 L Total Bilirubin 0.3 AST 20 ALT 21 Alkaline Phosphatase 66 Total Protein 5.6 L Albumin 2.1 L Active Medications Generic Name Dose Route Start Last Admin Trade Name Freq PRN Reason Stop Dose Admin Acetaminophen 650 mg 04/03/18 15:41 04/23/18 09:30 Tylenol - PO 650 mg Q6H PRN Administration FEVER Acetylcysteine 200 mg 04/03/18 10:30 04/24/18 10:58 Mucomyst 20 Oral / Inh Use Only* NEB 200 mg Q4HWA [facility] Administration Albuterol Sulfate 1 amp 04/17/18 14:00 04/24/18 10:58 Ventolin 0.083% Nebulizer Soln - NEB 1 amp Q4HWA [facility] Administration Alprazolam 0.25 mg 04/20/18 17:02 04/23/18 18:17 Xanax - PO 0.25 mg Q6H PRN Administration ANXIETY Amino Acids 30 ml 04/13/18 14:45 04/24/18 06:41 Prosource No Carb Liquid Pkt GT 30 ml TID [facility] Administration Budesonide/Formoterol Fumarate 2 puff 04/03/18 22:00 04/24/18 11:03 Symbicort 160/4.5mcg - IH 2 puff BID [facility] Administration Ciprofloxacin 1 drop 04/21/18 14:00 04/24/18 10:59 Ciloxan 0.3% Eye Drops - OU 04/26/18 10:01 1 drop Q4HWA [facility] Administration Clotrimazole 10 mg 04/17/18 18:00 04/24/18 10:59 Mycelex Lasha's - PO 10 mg 5XD [facility] Administration Emtricitabine/Tenofovir 1 tab 04/04/18 10:00 04/24/18 11:02 Truvada PO 1 tab DAILY [facility] Administration Etravirine 100 mg 04/03/18 18:30 04/24/18 11:03 Intelence - PO 100 mg BIDPC [facility] Administration Fluticasone Propionate 1 spray 04/04/18 10:00 04/24/18 11:03 Flonase - NS 1 spray DAILY [facility] Administration Gabapentin 250 mg 04/03/18 22:00 04/23/18 21:43 Neurontin Oral Liquid - PEG 5 ml BID [facility] Administration Metronidazole 500 mg in 100 mls @ 100 mls/hr 04/17/18 18:00 04/24/18 11:01 Flagyl 500mg Premixed Ivpb - IVPB 100 mls/hr Q8H-IV [facility] Administration Meropenem 1 gm/ Dextrose 100 mls @ 200 mls/hr 04/19/18 14:30 04/24/18 11:00 IVPB 200 mls/hr Q8H-IV [facility] Administration Ibuprofen 600 mg 04/15/18 16:39 04/20/18 12:37 Caldolor Injection - IVPB 600 mg Q6H PRN Administration PAIN LEVEL 1 - 3 Lactobacillus Acidophilus 1 tab 04/03/18 10:45 04/24/18 11:01 Bacid - PO 1 tab DAILY [facility] Administration Mirtazapine 15 mg 04/03/18 22:00 04/23/18 21:44 Remeron - PEG 15 mg HS [facility] Administration Ondansetron HCl 4 mg 04/11/18 19:55 Zofran Injection IVPUSH Q6H PRN NAUSEA AND/OR VOMITING Phenol/Menthol 1 spray 04/17/18 13:57 04/20/18 00:14 Chloraseptic - MM 1 spray Q6HPO PRN Administration SORE THROAT Prednisone 30 mg 04/24/18 10:02 Deltasone - PO DAILY [facility] Raltegravir 400 mg 04/03/18 22:00 04/24/18 11:02 Isentress - NR 400 mg BID [facility] Administration Ranitidine HCl 150 mg 04/19/18 10:00 04/24/18 10:57 Zantac Oral Solution - PEG 150 mg BID [facility] Administration Sertraline HCl 50 mg 04/04/18 10:00 04/24/18 10:57 Zoloft - PO 50 mg DAILY [facility] Administration Tramadol HCl 50 mg 04/16/18 14:13 04/24/18 06:41 Ultram - PO 50 mg Q6H PRN Administration PAIN LEVEL 6-10 Vancomycin HCl 125 mg 04/15/18 18:00 04/24/18 06:42 Vancomycin Oral Solution PO 125 mg Q6HPO [facility] Administration Zolpidem Tartrate 5 mg 04/17/18 21:59 04/23/18 23:15 Ambien - PO 5 mg HS PRN Administration INSOMNIA imaging: CT 04/19/2018: increased size and extent of a large left upper lobe infiltrate seen with interval development of cavitation. small bilateral pleural effusions. ASSESSMENT/PLAN: Patient is a 47 year old female with a significant past medical history of +HIV x 18 years, laryngeal cancer with a chronic trach, PEG tube, hepatitis B and failure to thrive. Patient presented to the ED on 03/28/2018 with symptoms of nausea, vomiting, diarrhea, cough and fever. Hospitalization complicated for acute shortness of breath and patient was transferred to the ICU on 03/30 and placed on a mechanical ventilator. She is currently on meropenem IV and flagyl IV and vancomycin PO. Pulmonary: Hospital acquired pneumonia: as noted on CT. On Meropenem (day #6). ID to address course of antibiotic therapy for cavitary pneumonia. If prolonged, patient to get PICC line and can get antibiotics outpatient. Ct noted to have cavitary pneumonia, not TB per pulmonary. WBC normalized. Chronic trach/shortness of breath/Asthma/COPD/pneumonia: On scheduled duonebs with mucomyst and chest percussion. ID: HIV: Continue home antiviral triple therapy. Card: chest pain, resolved Hypotension: resolved triglyceride panel wnl. Onc: Laryngeal carcinoma, has chronic trach and feeds via peg tube. Psyche: Anxiety history. klonopin increased to q6 prn. Endocrine: hmg a1c 6.2, boderline, monitor . prophy: Heparin tid aspiration precautions. physical therapy fen GT feeds, given boost supplements via gravity and prosource bid (apx 3k per day ) monitor electrolytes prosource zantac On continuous pulse monitoring. Visit type - Emergency Visit Emergency Visit: Yes ED Registration Date: 03/28/18 Care time: The patient presented to the Emergency Department on the above date and was hospitalized for further evaluation of their emergent condition. - New Patient This patient is new to me today: No - Critical Care Critical Care patient: No - Discharge Referral Referred to [facility] No
[2018-04-24] MEDS: GABAPENTIN 250 MG/5 ML ORAL SOLUTION, 470 ML BOTTLE PEG SCH ×2 (16:00→21:54)
[2018-04-24] MEDS: MIRTAZAPINE 15 MG TABLET (FP) PEG SCH (21:53)
[2018-04-24] MEDS: ALPRAZolam 0.25 MG TABLET PO PRN (21:53)
[2018-04-24] MEDS: ZOLPIDEM TARTRATE 5 MG TABLET PO PRN (23:08)
[2018-04-25] MEDS ORDERED: PT OWN MED DRAWER 7, Y5N ONE ×3 (00:10→17:18)
[2018-04-25] MEDS: MEROPENEM 1 GM in DEXTROSE 5%-WATER 100 ML IVPB SCH ×3 (01:00→17:20)
[2018-04-25] MEDS: ALBUTEROL SO4 0.083% IH SOL 2.5 MG/3 ML VIAL.NEB. NEB SCH ×5 (05:50→22:32)
[2018-04-25] MEDS: ACETYLCYSTEINE 20% 200MG/ML 4 ML VIAL *FOR ORAL / INH USE ONLY NEB SCH ×5 (05:50→22:32)
[2018-04-25] MEDS: AMINO ACIDS/PROTEIN HYDROLYS 30 ML LIQUID.PKT GT SCH ×3 (06:30→23:19)
[2018-04-25] MEDS: CLOTRIMAZOLE 10 MG TROCHE (FP) PO SCH ×4 (06:32→23:19)
[2018-04-25] MEDS: CIPROFLOXACIN HCL 0.3% OPHTH 2.5ML BOTTLE OU SCH ×5 (06:32→23:19)
[2018-04-25] MEDS: VANCOMYCIN 250 MG/5 ML ORAL SOLUTION PO SCH ×4 (06:32→23:19)
[2018-04-25] MEDS: LACTOBACILLUS ACIDOPHILUS 1 TABLET PO SCH (09:26)
[2018-04-25] MEDS: SERTRALINE HCL 50 MG TABLET (FP) PO SCH (09:26)
[2018-04-25] MEDS: RANITIDINE HCL 150 MG/10 ML UNIT-DOSE PEG SCH ×2 (09:26→23:20)
[2018-04-25] MEDS: RALTEGRAVIR POTASSIUM 400 MG TAB NR SCH ×2 (09:29→23:19)
[2018-04-25] MEDS: FLUTICASONE PROP 0.05% 16 GM NASAL SPRAY NS SCH (09:29)
[2018-04-25] MEDS: EMTRICITABINE 200MG/TENOFOVIR 300MG PO SCH (09:29)
[2018-04-25] MEDS: ETRAVIRINE 100 MG TABLET PO SCH ×2 (09:30→17:30)
[2018-04-25] MEDS: BUDESONIDE/FORMETEROL FUMARATE 160/4.5 mcg INHALER IH SCH ×2 (09:32→23:20)
[2018-04-25] MEDS: GABAPENTIN 250 MG/5 ML ORAL SOLUTION, 470 ML BOTTLE PEG SCH ×2 (09:32→23:19)
[2018-04-25] MEDS: ACETAMINOPHEN 325 MG TABLET (FP) PO PRN (09:55)
[2018-04-25] MEDS: ALPRAZolam 0.25 MG TABLET PO PRN ×2 (09:55→20:41)
--- NOTE | 2018-04-25 10:21 | PN ---
Progress Note, Physician History of Present Illness: pulmonary alert,feeling better,dyspnea improving,less congestion - Current Medication List Current Medications: Active Medications Acetaminophen (Tylenol -) 650 mg PO Q6H PRN PRN Reason: FEVER Last Admin: 04/25/18 09:55 Dose: 650 mg Acetylcysteine (Mucomyst 20 Oral / Inh Use Only*) 200 mg NEB Q4HWA [facility] Last Admin: 04/25/18 05:50 Dose: 200 mg Albuterol Sulfate (Ventolin 0.083% Nebulizer Soln -) 1 amp NEB Q4HWA [facility] Last Admin: 04/25/18 05:50 Dose: 1 amp Alprazolam (Xanax -) 0.25 mg PO Q6H PRN PRN Reason: ANXIETY Last Admin: 04/25/18 09:55 Dose: 0.25 mg Amino Acids (Prosource No Carb Liquid Pkt) 30 ml GT TID [facility] Last Admin: 04/25/18 06:30 Dose: 30 ml Budesonide/Formoterol Fumarate (Symbicort 160/4.5mcg -) 2 puff IH BID [facility] Last Admin: 04/25/18 09:32 Dose: 2 puff Ciprofloxacin (Ciloxan 0.3% Eye Drops -) 1 drop OU Q4HWA [facility] Stop: 04/26/18 10:01 Last Admin: 04/25/18 09:32 Dose: 1 drop Clotrimazole (Mycelex Lasha's -) 10 mg PO 5XD [facility] Last Admin: 04/25/18 09:30 Dose: 10 mg Emtricitabine/Tenofovir (Truvada) 1 tab PO DAILY [facility] Last Admin: 04/25/18 09:29 Dose: 1 tab Etravirine (Intelence -) 100 mg PO BIDPC [facility] Last Admin: 04/25/18 09:30 Dose: 100 mg Fluticasone Propionate (Flonase -) 1 spray NS DAILY [facility] Last Admin: 04/25/18 09:29 Dose: 1 spray Gabapentin (Neurontin Oral Liquid -) 250 mg PEG BID [facility] Last Admin: 04/25/18 09:32 Dose: 250 ml Metronidazole (Flagyl 500mg Premixed Ivpb -) 500 mg in 100 mls @ 100 mls/hr IVPB Q8H-IV [facility] Last Admin: 09/23/18 09:55 Dose: 100 mls/hr Meropenem 1 gm/ Dextrose 100 mls @ 200 mls/hr IVPB Q8H-IV [facility] Last Admin: 04/25/18 09:26 Dose: 200 mls/hr Ibuprofen (Caldolor Injection -) 600 mg IVPB Q6H PRN PRN Reason: PAIN LEVEL 1 - 3 Last Admin: 04/20/18 12:37 Dose: 600 mg Lactobacillus Acidophilus (Bacid -) 1 tab PO DAILY [facility] Last Admin: 04/25/18 09:26 Dose: 1 tab Mirtazapine (Remeron -) 15 mg PEG HS [facility] Last Admin: 04/24/18 21:53 Dose: 15 mg Ondansetron HCl (Zofran Injection) 4 mg IVPUSH Q6H PRN PRN Reason: NAUSEA AND/OR VOMITING Phenol/Menthol (Chloraseptic -) 1 spray MM Q6HPO PRN PRN Reason: SORE THROAT Last Admin: 04/20/18 00:14 Dose: 1 spray Prednisone (Deltasone -) 30 mg PO DAILY [facility] Last Admin: 04/25/18 09:26 Dose: 30 mg Raltegravir (Isentress -) 400 mg NR BID [facility] Last Admin: 04/25/18 09:29 Dose: 400 mg Ranitidine HCl (Zantac Oral Solution -) 150 mg PEG BID [facility] Last Admin: 04/25/18 09:26 Dose: 150 mg Sertraline HCl (Zoloft -) 50 mg PO DAILY [facility] Last Admin: 04/25/18 09:26 Dose: 50 mg Tramadol HCl (Ultram -) 50 mg PO Q6H PRN PRN Reason: PAIN LEVEL 6-10 Last Admin: 04/24/18 18:10 Dose: 50 mg Vancomycin HCl (Vancomycin Oral Solution) 125 mg PO Q6HPO [facility] Last Admin: 04/25/18 06:32 Dose: 125 mg Zolpidem Tartrate (Ambien -) 5 mg PO HS PRN PRN Reason: INSOMNIA Last Admin: 04/24/18 23:08 Dose: 5 mg - Objective Vital Signs: Vital Signs Temperature 99.5 F 04/25/18 09:22 Pulse Rate 82 04/25/18 09:22 Respiratory Rate 20 04/25/18 09:22 Blood Pressure 128/72 04/25/18 09:22 O2 Sat by Pulse Oximetry (%) 94 L 04/25/18 07:56 Constitutional: Yes: Calm, Thin Eyes: Yes: WNL HENT: Yes: WNL Neck: Yes: Supple (trach) Cardiovascular: Yes: Regular Rate and Rhythm, S1, S2 Respiratory: Yes: Rhonchi (less rhonchi bilaterally) Gastrointestinal: Yes: Normal Bowel Sounds, Soft Extremities: Yes: WNL Edema: No Labs: CBC, BMP Problem List - Problems (1) Acute on chronic respiratory failure with hypoxia and hypercapnia Code(s): J96.21 - ACUTE AND CHRONIC RESPIRATORY FAILURE WITH HYPOXIA; J96.22 - ACUTE AND CHRONIC RESPIRATORY FAILURE WITH HYPERCAPNIA (2) Laryngeal carcinoma Code(s): C32.9 - MALIGNANT NEOPLASM OF LARYNX, UNSPECIFIED (3) Pneumonia Code(s): J18.9 - PNEUMONIA, UNSPECIFIED ORGANISM Qualifiers: Pneumonia type: due to unspecified organism Laterality: bilateral Lung location: unspecified part of lung Qualified Code(s): J18.9 - Pneumonia, unspecified organism (4) AIDS Code(s): B20 - HUMAN IMMUNODEFICIENCY VIRUS [HIV] DISEASE (5) Difficulty breathing Code(s): R06.89 - OTHER ABNORMALITIES OF BREATHING (6) HIV (human immunodeficiency virus infection) Code(s): Z21 - ASYMPTOMATIC HUMAN IMMUNODEFICIENCY VIRUS INFECTION STATUS (7) Head and neck cancer Code(s): C76.0 - MALIGNANT NEOPLASM OF HEAD, FACE AND NECK Assessment/Plan A/P Acute on Chronic Hypoxic Respiratory Failure improving Bilateral Pneumonia Cavitary pneumonia ARDS resolved Klebsiella Bacteremia Sepsis HIV/AIDS h/o Laryngeal Ca s/p trach/PEG Pleural effusion exudate likely uncomplicated parapneumonic effusion Fever - antibiotics as per ID - bacid - inhaled bronchodilators with mucomyst - pain control - chest PT/bed percussion - taper Fio2 to keep SpO2 >90% - ART - DVT prophylaxis - steroid taper - f/u chest x-rays lasix for edema DR MAYER
[2018-04-25] MEDS ORDERED: predniSONE 10 MG TABLET (UD) PO SCH (10:22)
[2018-04-25 10:25] LABS: BASO % 0.4 % (0-2.0); EOS % 0.2 % (0-4.5); HEMATOCRIT 29.4 % (32.4-45.2); HEMOGLOBIN 9.8 GM/dL (10.7-15.3); LYMPH % 12.9 % (8-40); MCH 32.8 pg (25.7-33.7); MCHC 33.5 g/dl (32.0-36.0); MEAN CELL VOLUME 97.9 fl (80-96); MEAN PLT VOLUME 7.8 fl (7.5-11.1); MONO % 5.3 % (3.8-10.2); NEUT % 81.2 % (42.8-82.8); PLATELET COUNT 483 K/MM3 (134-434); RDW 15.4 % (11.6-15.6); WHITE BLOOD COUNT 10.6 K/mm3 (4.0-10.0)
[2018-04-25 11:14] LABS: ALBUMIN 2.2 g/dl (3.4-5.0); ALK PHOS 66 U/L (45-117); ANION GAP 3 MMOL/L (8-16); BILIRUBIN,TOTAL 0.2 mg/dL (0.2-1); BLOOD UREA NITROGEN 23 mg/dL (7-18); CALCIUM 8.2 mg/dL (8.5-10.1); CHLORIDE 101 mmol/L (98-107); CO2 35 mmol/L (21-32); CREATININE 0.4 mg/dL (0.55-1.3); GLUCOSE,RANDOM 120 mg/dL (74-106); MAGNESIUM 2.5 mg/dL (1.8-2.4); POTASSIUM 3.7 mmol/L (3.5-5.1); SGOT/AST 23 U/L (15-37); SGPT/ALT 20 U/L (13-61); SODIUM 140 mmol/L (136-145); TOT PROT 5.8 g/dl (6.4-8.2)
--- NOTE | 2018-04-25 14:35 | PN ---
Physical Exam: SUBJECTIVE: Patient seen and examined at the bedside. OBJECTIVE: patient asking for some clear soup, apple juice via her g tube. will continue her tube feeds of boost and order clears via gtube discharge planning. Vital Signs Period Temp Pulse Resp BP Sys/Lisa Pulse Ox Last 24 Hr 98.1 F-99.5 F 80-93 20-22 107-143/64-74 94-96 GENERAL: The patient is awake, alert, and fully oriented, in no acute distress HEAD: Normal with no signs of trauma. EYES: PERRL, extraocular movements intact, sclera anicteric, conjunctiva clear. No ptosis. ENT: trach collar, frequently suctions herself NECK: Trachea midline, full range of motion, supple. LUNGS: Breath sounds with bilateral scattered rhonchi, overall improving since yesterday, coughing up some green sputum. HEART: Regular rate and rhythm ABDOMEN: + peg tube EXTREMITIES: mild edema NEUROLOGICAL: Normal speech, steady gait PSYCH: calm, cooperative SKIN: Warm, dry, normal turgor, no rashes or lesions noted Laboratory Results - last 24 hr 04/25/18 04/25/18 06:00 10:00 WBC 10.6 H RBC 3.00 L Hgb 9.8 L Hct 29.4 L MCV 97.9 H MCH 32.8 MCHC 33.5 RDW 15.4 Plt Count 483 H MPV 7.8 Absolute Neuts (auto) 8.6 H Neutrophils % 81.2 Lymphocytes % 12.9 Monocytes % 5.3 Eosinophils % 0.2 Basophils % 0.4 Nucleated RBC % 0 Sodium 140 Potassium 3.7 Chloride 101 Carbon Dioxide 35 H Anion Gap 3 L BUN 23 H Creatinine 0.4 L Creat Clearance w eGFR > 60 Random Glucose 120 H Calcium 8.2 L Magnesium 2.5 H Total Bilirubin 0.2 AST 23 ALT 20 Alkaline Phosphatase 66 Total Protein 5.8 L Albumin 2.2 L Active Medications Generic Name Dose Route Start Last Admin Trade Name Freq PRN Reason Stop Dose Admin Acetaminophen 650 mg 04/03/18 15:41 04/25/18 09:55 Tylenol - PO 650 mg Q6H PRN Administration FEVER Acetylcysteine 200 mg 04/03/18 10:30 04/25/18 14:19 Mucomyst 20 Oral / Inh Use Only* NEB 200 mg Q4HWA [facility] Administration Albuterol Sulfate 1 amp 04/17/18 14:00 04/25/18 14:19 Ventolin 0.083% Nebulizer Soln - NEB 1 amp Q4HWA [facility] Administration Alprazolam 0.25 mg 04/20/18 17:02 04/25/18 09:55 Xanax - PO 0.25 mg Q6H PRN Administration ANXIETY Amino Acids 30 ml 04/13/18 14:45 04/25/18 06:30 Prosource No Carb Liquid Pkt GT 30 ml TID [facility] Administration Budesonide/Formoterol Fumarate 2 puff 04/03/18 22:00 04/25/18 09:32 Symbicort 160/4.5mcg - IH 2 puff BID [facility] Administration Ciprofloxacin 1 drop 04/21/18 14:00 04/25/18 09:32 Ciloxan 0.3% Eye Drops - OU 04/26/18 10:01 1 drop Q4HWA [facility] Administration Clotrimazole 10 mg 04/17/18 18:00 04/25/18 09:30 Mycelex Lasha's - PO 10 mg 5XD [facility] Administration Emtricitabine/Tenofovir 1 tab 04/04/18 10:00 04/25/18 09:29 Truvada PO 1 tab DAILY [facility] Administration Etravirine 100 mg 04/03/18 18:30 04/25/18 09:30 Intelence - PO 100 mg BIDPC [facility] Administration Fluticasone Propionate 1 spray 04/04/18 10:00 04/25/18 09:29 Flonase - NS 1 spray DAILY [facility] Administration Gabapentin 250 mg 04/03/18 22:00 04/25/18 09:32 Neurontin Oral Liquid - PEG 250 ml BID [facility] Administration Metronidazole 500 mg in 100 mls @ 100 mls/hr 04/17/18 18:00 04/25/18 09:55 Flagyl 500mg Premixed Ivpb - IVPB 100 mls/hr Q8H-IV [facility] Administration Meropenem 1 gm/ Dextrose 100 mls @ 200 mls/hr 04/19/18 14:30 04/25/18 09:26 IVPB 200 mls/hr Q8H-IV [facility] Administration Ibuprofen 600 mg 04/15/18 16:39 04/20/18 12:37 Caldolor Injection - IVPB 600 mg Q6H PRN Administration PAIN LEVEL 1 - 3 Lactobacillus Acidophilus 1 tab 04/03/18 10:45 04/25/18 09:26 Bacid - PO 1 tab DAILY [facility] Administration Mirtazapine 15 mg 04/03/18 22:00 04/24/18 21:53 Remeron - PEG 15 mg HS [facility] Administration Ondansetron HCl 4 mg 04/11/18 19:55 Zofran Injection IVPUSH Q6H PRN NAUSEA AND/OR VOMITING Phenol/Menthol 1 spray 04/17/18 13:57 04/20/18 00:14 Chloraseptic - MM 1 spray Q6HPO PRN Administration SORE THROAT Prednisone 25 mg 04/25/18 10:22 Deltasone - PO DAILY [facility] Raltegravir 400 mg 04/03/18 22:00 04/25/18 09:29 Isentress - NR 400 mg BID [facility] Administration Ranitidine HCl 150 mg 04/19/18 10:00 04/25/18 09:26 Zantac Oral Solution - PEG 150 mg BID [facility] Administration Sertraline HCl 50 mg 04/04/18 10:00 04/25/18 09:26 Zoloft - PO 50 mg DAILY [facility] Administration Tramadol HCl 50 mg 04/16/18 14:13 04/24/18 18:10 Ultram - PO 50 mg Q6H PRN Administration PAIN LEVEL 6-10 Vancomycin HCl 125 mg 04/15/18 18:00 04/25/18 12:42 Vancomycin Oral Solution PO 125 mg Q6HPO [facility] Administration Zolpidem Tartrate 5 mg 04/17/18 21:59 04/24/18 23:08 Ambien - PO 5 mg HS PRN Administration INSOMNIA imaging: CT 04/19/2018: increased size and extent of a large left upper lobe infiltrate seen with interval development of cavitation. small bilateral pleural effusions. ASSESSMENT/PLAN: Patient is a 47 year old female with a significant past medical history of +HIV x 18 years, laryngeal cancer with a chronic trach, PEG tube, hepatitis B and failure to thrive. Patient presented to the ED on 03/28/2018 with symptoms of nausea, vomiting, diarrhea, cough and fever. Hospitalization complicated for acute shortness of breath and patient was transferred to the ICU on 03/30 and placed on a mechanical ventilator. She is currently on meropenem IV and flagyl IV and vancomycin PO. Pulmonary: Hospital acquired pneumonia: as noted on CT. On Meropenem (day #7). ID to address course of antibiotic therapy for cavitary pneumonia. Chronic trach/shortness of breath/Asthma/COPD/pneumonia: On scheduled duonebs with mucomyst and chest percussion. ID: HIV: Continue home antiviral triple therapy. Card: chest pain, hypotension, resolved Onc: Laryngeal carcinoma, has chronic trach and feeds via peg tube of high calorie boost, also give herself some additional nutrition with clear soup, apple juice. Psyche: Anxiety history. klonopin q6 prn. Endocrine: hmg a1c 6.2, boderline, monitor . prophy: Heparin tid aspiration precautions, maintain nothing by mouth. swallow evaulation to be done as outpatient once acute infection clears. physical therapy fen GT feeds, given boost supplements via gravity and prosource bid (apx 3k per day ) monitor electrolytes prosource zantac On continuous pulse monitoring. Visit type - Emergency Visit Emergency Visit: Yes ED Registration Date: 03/28/18 Care time: The patient presented to the Emergency Department on the above date and was hospitalized for further evaluation of their emergent condition. - New Patient This patient is new to me today: No - Critical Care Critical Care patient: No
[2018-04-25] MEDS: traMADol HCL 50 MG TABLET PO PRN (20:41)
[2018-04-25] MEDS: MIRTAZAPINE 15 MG TABLET (FP) PEG SCH (23:20)
[2018-04-25] MEDS: ZOLPIDEM TARTRATE 5 MG TABLET PO PRN (23:21)
[2018-04-26] MEDS ORDERED: PT OWN MED DRAWER 7, Y5N ONE ×3 (01:23→09:34)
[2018-04-26] MEDS: MEROPENEM 1 GM in DEXTROSE 5%-WATER 100 ML IVPB SCH ×2 (01:31→09:29)
[2018-04-26] MEDS: ALBUTEROL SO4 0.083% IH SOL 2.5 MG/3 ML VIAL.NEB. NEB SCH ×3 (06:15→13:50)
[2018-04-26] MEDS: ACETYLCYSTEINE 20% 200MG/ML 4 ML VIAL *FOR ORAL / INH USE ONLY NEB SCH ×3 (06:15→13:49)
[2018-04-26] MEDS: AMINO ACIDS/PROTEIN HYDROLYS 30 ML LIQUID.PKT GT SCH ×2 (06:52→13:28)
[2018-04-26] MEDS: VANCOMYCIN 250 MG/5 ML ORAL SOLUTION PO SCH ×2 (06:52→11:52)
[2018-04-26] MEDS: CLOTRIMAZOLE 10 MG TROCHE (FP) PO SCH ×3 (06:52→13:29)
[2018-04-26] MEDS: CIPROFLOXACIN HCL 0.3% OPHTH 2.5ML BOTTLE OU SCH ×2 (06:53→09:38)
[2018-04-26] MEDS: ALPRAZolam 0.25 MG TABLET PO PRN ×2 (07:20→13:28)
[2018-04-26 09:18] VITALS: BP 122/79; TEMP 98.8
[2018-04-26] MEDS: GABAPENTIN 250 MG/5 ML ORAL SOLUTION, 470 ML BOTTLE PEG SCH (09:30)
[2018-04-26] MEDS: SERTRALINE HCL 50 MG TABLET (FP) PO SCH (09:31)
[2018-04-26] MEDS: ETRAVIRINE 100 MG TABLET PO SCH (09:34)
[2018-04-26] MEDS: EMTRICITABINE 200MG/TENOFOVIR 300MG PO SCH (09:35)
[2018-04-26] MEDS: RALTEGRAVIR POTASSIUM 400 MG TAB NR SCH (09:35)
[2018-04-26] MEDS: LACTOBACILLUS ACIDOPHILUS 1 TABLET PO SCH (09:37)
[2018-04-26] MEDS: FLUTICASONE PROP 0.05% 16 GM NASAL SPRAY NS SCH (09:37)
[2018-04-26] MEDS: BUDESONIDE/FORMETEROL FUMARATE 160/4.5 mcg INHALER IH SCH (09:37)
[2018-04-26] MEDS: RANITIDINE HCL 150 MG/10 ML UNIT-DOSE PEG SCH (09:38)
[2018-04-26 10:05] LABS: BASO % 0.2 % (0-2.0); EOS % 0.4 % (0-4.5); HEMATOCRIT 27.8 % (32.4-45.2); HEMOGLOBIN 9.3 GM/dL (10.7-15.3); MCH 32.6 pg (25.7-33.7); MCHC 33.4 g/dl (32.0-36.0); MEAN CELL VOLUME 97.5 fl (80-96); MEAN PLT VOLUME 7.8 fl (7.5-11.1); MONO % 4.4 % (3.8-10.2); PLATELET COUNT 457 K/MM3 (134-434); RBC 2.85 M/mm3 (3.60-5.2); WHITE BLOOD COUNT 9.5 K/mm3 (4.0-10.0)
[2018-04-26 10:50] LABS: ALBUMIN 2.3 g/dl (3.4-5.0); ALK PHOS 68 U/L (45-117); ANION GAP 5 MMOL/L (8-16); BILIRUBIN,TOTAL 0.5 mg/dL (0.2-1); BLOOD UREA NITROGEN 19 mg/dL (7-18); CALCIUM 7.9 mg/dL (8.5-10.1); CHLORIDE 102 mmol/L (98-107); CO2 31 mmol/L (21-32); CREATININE 0.4 mg/dL (0.55-1.3); GLUCOSE,RANDOM 92 mg/dL (74-106); MAGNESIUM 2.5 mg/dL (1.8-2.4); POTASSIUM 3.8 mmol/L (3.5-5.1); SGOT/AST 22 U/L (15-37); SGPT/ALT 21 U/L (13-61); SODIUM 138 mmol/L (136-145); TOT PROT 5.8 g/dl (6.4-8.2)
--- NOTE | 2018-04-26 11:25 | PN ---
Progress Note, Physician History of Present Illness: PULMONARY ALERT,FEELING BETTER ,LESS CONGESTED ,+ LOW GRADE Tmax 100.3 - Current Medication List Current Medications: Active Medications Acetaminophen (Tylenol -) 650 mg PO Q6H PRN PRN Reason: FEVER Last Admin: 04/25/18 09:55 Dose: 650 mg Acetylcysteine (Mucomyst 20 Oral / Inh Use Only*) 200 mg NEB Q4HWA [facility] Last Admin: 04/26/18 09:25 Dose: 200 mg Albuterol Sulfate (Ventolin 0.083% Nebulizer Soln -) 1 amp NEB Q4HWA [facility] Last Admin: 04/26/18 09:26 Dose: 1 amp Alprazolam (Xanax -) 0.25 mg PO Q6H PRN PRN Reason: ANXIETY Last Admin: 04/26/18 07:20 Dose: 0.25 mg Amino Acids (Prosource No Carb Liquid Pkt) 30 ml GT TID [facility] Last Admin: 04/26/18 06:52 Dose: 30 ml Budesonide/Formoterol Fumarate (Symbicort 160/4.5mcg -) 2 puff IH BID [facility] Last Admin: 04/26/18 09:37 Dose: 2 puff Clotrimazole (Mycelex Lasha's -) 10 mg PO 5XD [facility] Last Admin: 04/26/18 09:31 Dose: 10 mg Emtricitabine/Tenofovir (Truvada) 1 tab PO DAILY [facility] Last Admin: 04/26/18 09:35 Dose: 1 tab Etravirine (Intelence -) 100 mg PO BIDPC [facility] Last Admin: 04/26/18 09:34 Dose: 100 mg Fluticasone Propionate (Flonase -) 1 spray NS DAILY [facility] Last Admin: 04/26/18 09:37 Dose: 1 spray Gabapentin (Neurontin Oral Liquid -) 250 mg PEG BID [facility] Last Admin: 04/26/18 09:30 Dose: 5 ml Metronidazole (Flagyl 500mg Premixed Ivpb -) 500 mg in 100 mls @ 100 mls/hr IVPB Q8H-IV [facility] Last Admin: 04/26/18 09:29 Dose: 100 mls/hr Meropenem 1 gm/ Dextrose 100 mls @ 200 mls/hr IVPB Q8H-IV [facility] Last Admin: 04/26/18 09:29 Dose: 200 mls/hr Ibuprofen (Caldolor Injection -) 600 mg IVPB Q6H PRN PRN Reason: PAIN LEVEL 1 - 3 Last Admin: 04/20/18 12:37 Dose: 600 mg Lactobacillus Acidophilus (Bacid -) 1 tab PO DAILY [facility] Last Admin: 04/26/18 09:37 Dose: 1 tab Mirtazapine (Remeron -) 15 mg PEG HS [facility] Last Admin: 04/25/18 23:20 Dose: 15 mg Ondansetron HCl (Zofran Injection) 4 mg IVPUSH Q6H PRN PRN Reason: NAUSEA AND/OR VOMITING Phenol/Menthol (Chloraseptic -) 1 spray MM Q6HPO PRN PRN Reason: SORE THROAT Last Admin: 04/20/18 00:14 Dose: 1 spray Prednisone (Deltasone -) 25 mg PO DAILY [facility] Last Admin: 04/26/18 09:30 Dose: 25 mg Raltegravir (Isentress -) 400 mg NR BID [facility] Last Admin: 04/26/18 09:35 Dose: 400 mg Ranitidine HCl (Zantac Oral Solution -) 150 mg PEG BID [facility] Last Admin: 04/26/18 09:38 Dose: 150 mg Sertraline HCl (Zoloft -) 50 mg PO DAILY [facility] Last Admin: 04/26/18 09:31 Dose: 50 mg Tramadol HCl (Ultram -) 50 mg PO Q6H PRN PRN Reason: PAIN LEVEL 6-10 Last Admin: 04/25/18 20:41 Dose: 50 mg Vancomycin HCl (Vancomycin Oral Solution) 125 mg PO Q6HPO [facility] Last Admin: 04/26/18 06:52 Dose: 125 mg Zolpidem Tartrate (Ambien -) 5 mg PO HS PRN PRN Reason: INSOMNIA Last Admin: 04/25/18 23:21 Dose: 5 mg - Objective Vital Signs: Vital Signs Temperature 98.8 F 04/26/18 09:06 Pulse Rate 85 04/26/18 09:25 Respiratory Rate 20 04/26/18 09:06 Blood Pressure 122/79 04/26/18 09:06 O2 Sat by Pulse Oximetry (%) 95 04/26/18 09:25 Constitutional: Yes: Calm, Thin Eyes: Yes: WNL HENT: Yes: WNL Neck: Yes: Supple (TRACH) Cardiovascular: Yes: Regular Rate and Rhythm, S1, S2 Respiratory: Yes: Rhonchi (LESS RHONCHI BILATERALLY) Gastrointestinal: Yes: Normal Bowel Sounds, Soft Extremities: Yes: WNL Edema: No Labs: CBC, BMP 04/26/18 09:30 04/26/18 09:30 INR, PTT INR 1.02 (0.83-1.09) 04/09/18 09:27 Problem List - Problems (1) Acute on chronic respiratory failure with hypoxia and hypercapnia Code(s): J96.21 - ACUTE AND CHRONIC RESPIRATORY FAILURE WITH HYPOXIA; J96.22 - ACUTE AND CHRONIC RESPIRATORY FAILURE WITH HYPERCAPNIA (2) Laryngeal carcinoma Code(s): C32.9 - MALIGNANT NEOPLASM OF LARYNX, UNSPECIFIED (3) Pneumonia Code(s): J18.9 - PNEUMONIA, UNSPECIFIED ORGANISM Qualifiers: Pneumonia type: due to unspecified organism Laterality: bilateral Lung location: unspecified part of lung Qualified Code(s): J18.9 - Pneumonia, unspecified organism (4) AIDS Code(s): B20 - HUMAN IMMUNODEFICIENCY VIRUS [HIV] DISEASE (5) Difficulty breathing Code(s): R06.89 - OTHER ABNORMALITIES OF BREATHING (6) HIV (human immunodeficiency virus infection) Code(s): Z21 - ASYMPTOMATIC HUMAN IMMUNODEFICIENCY VIRUS INFECTION STATUS (7) Head and neck cancer Code(s): C76.0 - MALIGNANT NEOPLASM OF HEAD, FACE AND NECK Assessment/Plan A/P Acute on Chronic Hypoxic Respiratory Failure improving Bilateral Pneumonia Cavitary pneumonia ARDS resolved Klebsiella Bacteremia Sepsis HIV/AIDS h/o Laryngeal Ca s/p trach/PEG Pleural effusion exudate likely uncomplicated parapneumonic effusion Fever - antibiotics as per ID - bacid - inhaled bronchodilators with mucomyst - pain control - chest PT/bed percussion - taper Fio2 to keep SpO2 >90% - ART - DVT prophylaxis - steroid taper - f/u chest x-ray today pa + lateral lasix for edema - DR MAYER
[2018-04-26] MEDS ORDERED: PICC LINE 8 ML FLUSH PROTOCOL IVPUSH PRN (12:48)
--- NOTE | 2018-04-26 12:49 | PN ---
Progress Note, Physician History of Present Illness: Awake, alert No c/o chest pain / dyspnea Reports less sputum production No blood streaked sputum Afebrile WBC improved WNL - Current Medication List Current Medications: Active Medications Acetaminophen (Tylenol -) 650 mg PO Q6H PRN PRN Reason: FEVER Last Admin: 04/25/18 09:55 Dose: 650 mg Acetylcysteine (Mucomyst 20 Oral / Inh Use Only*) 200 mg NEB Q4HWA [facility] Last Admin: 04/26/18 09:25 Dose: 200 mg Albuterol Sulfate (Ventolin 0.083% Nebulizer Soln -) 1 amp NEB Q4HWA [facility] Last Admin: 04/26/18 09:26 Dose: 1 amp Alprazolam (Xanax -) 0.25 mg PO Q6H PRN PRN Reason: ANXIETY Last Admin: 04/26/18 07:20 Dose: 0.25 mg Amino Acids (Prosource No Carb Liquid Pkt) 30 ml GT TID [facility] Last Admin: 04/26/18 06:52 Dose: 30 ml Budesonide/Formoterol Fumarate (Symbicort 160/4.5mcg -) 2 puff IH BID [facility] Last Admin: 04/26/18 09:37 Dose: 2 puff Clotrimazole (Mycelex Lasha's -) 10 mg PO 5XD [facility] Last Admin: 04/26/18 09:31 Dose: 10 mg Emtricitabine/Tenofovir (Truvada) 1 tab PO DAILY [facility] Last Admin: 04/26/18 09:35 Dose: 1 tab Etravirine (Intelence -) 100 mg PO BIDPC [facility] Last Admin: 04/26/18 09:34 Dose: 100 mg Fluticasone Propionate (Flonase -) 1 spray NS DAILY [facility] Last Admin: 04/26/18 09:37 Dose: 1 spray Gabapentin (Neurontin Oral Liquid -) 250 mg PEG BID [facility] Last Admin: 04/26/18 09:30 Dose: 5 ml Metronidazole (Flagyl 500mg Premixed Ivpb -) 500 mg in 100 mls @ 100 mls/hr IVPB Q8H-IV [facility] Last Admin: 04/26/18 09:29 Dose: 100 mls/hr Meropenem 1 gm/ Dextrose 100 mls @ 200 mls/hr IVPB Q8H-IV [facility] Last Admin: 04/26/18 09:29 Dose: 200 mls/hr Ibuprofen (Caldolor Injection -) 600 mg IVPB Q6H PRN PRN Reason: PAIN LEVEL 1 - 3 Last Admin: 04/20/18 12:37 Dose: 600 mg Lactobacillus Acidophilus (Bacid -) 1 tab PO DAILY [facility] Last Admin: 04/26/18 09:37 Dose: 1 tab Mirtazapine (Remeron -) 15 mg PEG HS [facility] Last Admin: 04/25/18 23:20 Dose: 15 mg Ondansetron HCl (Zofran Injection) 4 mg IVPUSH Q6H PRN PRN Reason: NAUSEA AND/OR VOMITING Phenol/Menthol (Chloraseptic -) 1 spray MM Q6HPO PRN PRN Reason: SORE THROAT Last Admin: 04/20/18 00:14 Dose: 1 spray Prednisone (Deltasone -) 25 mg PO DAILY [facility] Last Admin: 04/26/18 09:30 Dose: 25 mg Raltegravir (Isentress -) 400 mg NR BID [facility] Last Admin: 04/26/18 09:35 Dose: 400 mg Ranitidine HCl (Zantac Oral Solution -) 150 mg PEG BID [facility] Last Admin: 04/26/18 09:38 Dose: 150 mg Sertraline HCl (Zoloft -) 50 mg PO DAILY [facility] Last Admin: 04/26/18 09:31 Dose: 50 mg Tramadol HCl (Ultram -) 50 mg PO Q6H PRN PRN Reason: PAIN LEVEL 6-10 Last Admin: 04/25/18 20:41 Dose: 50 mg Vancomycin HCl (Vancomycin Oral Solution) 125 mg PO Q6HPO [facility] Last Admin: 04/26/18 11:52 Dose: 5 ml Zolpidem Tartrate (Ambien -) 5 mg PO HS PRN PRN Reason: INSOMNIA Last Admin: 04/25/18 23:21 Dose: 5 mg - Objective Vital Signs: Vital Signs Temperature 98.8 F 04/26/18 09:06 Pulse Rate 85 04/26/18 09:25 Respiratory Rate 20 04/26/18 09:06 Blood Pressure 122/79 04/26/18 09:06 O2 Sat by Pulse Oximetry (%) 95 04/26/18 09:25 Constitutional: Yes: Cachectic Eyes: Yes: Conjunctiva Clear Cardiovascular: Yes: Regular Rate and Rhythm, S1, S2 Respiratory: Yes: Rhonchi Gastrointestinal: Yes: Normal Bowel Sounds, Soft. No: Tenderness Edema: No Labs: CBC, BMP 04/26/18 09:30 04/26/18 09:30 INR, PTT INR 1.02 (0.83-1.09) 04/09/18 09:27 Assessment/Plan Fever, Leukocytosis improved Cavitary JENNIFER pneumonia/ necrotizing pneumonitis Respiratory failure Hx Klebsiella bacteremia AIDS Substitute cefepime 2gm IVPB q12h + flagyl 500mg po tid x [address] as outpatient
--- NOTE | 2018-04-26 12:49 | DS ---
Physical Exam: SUBJECTIVE: Patient seen and examined at the bedside. Feels well, in no acute distress. states her breathing is better, improved. Patient agreeing to have a PICC line placed for continuation of 2 weeks of antibiotcis of cefepime via picc as well as Flagyl 500mg TID via g tube. Vanco oral therapy complete OBJECTIVE: discharge home with [facility] services Again spoke to patient about maintaining her NPO status until she sees Sheyla Ovalle outpatient for modified barium swallow test. She is allowed to have gatorade in small amounts, clear soups and yenifer ivania all in small amounts via g tube only. this is her home regimen. Vital Signs Period Temp Pulse Resp BP Sys/Lisa Pulse Ox Last 24 Hr 98.8 F-100.3 F 84-110 20-22 113-154/71-84 95-96 PHYSICAL EXAM GENERAL: The patient is awake, alert, and fully oriented, in no acute distress HEAD: Normal with no signs of trauma. EYES: PERRL, extraocular movements intact, sclera anicteric, conjunctiva clear. No ptosis. ENT: trach collar, frequently suctions herself NECK: Trachea midline, full range of motion, supple. LUNGS: Breath sounds with bilateral scattered rhonchi, overall improving, stable oxygen saturations. HEART: Regular rate and rhythm ABDOMEN: + peg tube EXTREMITIES: no edema NEUROLOGICAL: Normal speech, steady gait PSYCH: calm, cooperative SKIN: Warm, dry, normal turgor, no rashes or lesions noted LABS Laboratory Results - last 24 hr 04/26/18 04/26/18 09:30 09:30 WBC 9.5 RBC 2.85 L Hgb 9.3 L Hct 27.8 L MCV 97.5 H MCH 32.6 MCHC 33.4 RDW 15.0 Plt Count 457 H MPV 7.8 Absolute Neuts (auto) 7.7 Neutrophils % 81.0 Lymphocytes % 14.0 Monocytes % 4.4 Eosinophils % 0.4 D Basophils % 0.2 Nucleated RBC % 0 Sodium 138 Potassium 3.8 Chloride 102 Carbon Dioxide 31 Anion Gap 5 L BUN 19 H Creatinine 0.4 L Creat Clearance w eGFR > 60 Random Glucose 92 Calcium 7.9 L Magnesium 2.5 H Total Bilirubin 0.5 AST 22 ALT 21 Alkaline Phosphatase 68 Total Protein 5.8 L Albumin 2.3 L HOSPITAL COURSE: Date of Admission:03/28/18 Date of Discharge: 04/26/18 imaging: CT 04/22/2018: bilateral pneumonia CT 04/19/2018: increased size and extent of a large left upper lobe infiltrate seen with interval development of cavitation. small bilateral pleural effusions. Hospital course: Patient is a 47 year old female with a significant past medical history of +HIV x 18 years, laryngeal cancer with a chronic trach, PEG tube (2013), hepatitis B and failure to thrive, on home oxygen therapy. Patient presented to the ED on with symptoms of nausea, vomiting, diarrhea, cough, Fever -> 103, SOB, cough, CP & N/V X past 4 days. Pt noted yellow purulent mucus from her trach w/ cough as well chest discomfort w/ cough &/or deep inspiration. She has also noted fevers to 103 at home that has been minimally responsive to tylenol. On admission patient was started on antibiotics & sent to ICU w/ hypotension w/ SBP in the 80's. She was placed on a mechanical ventilator. During hospitalization patient developed a hospital acquired pneumonia as per CT chest dated 04/12/18 and was placed back on IV antibiotics (Zosyn and Vanco). A repeat chest CT 04/19/2018 showed increased size and extent of a large left upper lobe infiltrate seen with interval development of cavitation. small bilateral pleural effusions. She was placed on Meropenem IV and Flagyl IV. She will be discharged home with a PICC line and will be sent home on [id number] IVPB q12h + flagyl 500mg po tid x 2 weeks with home services via [facility]. She will follow up with her mask design engineer Dr. Leung and have a repeat CT chest within 6-8 weeks. Hospital course by problem list: Pulmonary: Hospital acquired pneumonia/cavitary pneumonia. will be sent home on [id number] IVPB q12h + flagyl 500mg po tid x 2 weeks with home services via [facility]. Chronic trach/shortness of breath/Asthma/COPD/pneumonia: On scheduled duonebs at home ID: HIV: Continue home antiviral triple therapy. Follow up at the [facility]. Card: chest pain, hypotension, resolved Onc: Laryngeal carcinoma, has chronic trach and feeds via peg tube of high calorie boost, also give herself some additional nutrition with clear soup, apple juice via PEG tuge only. Nothing by mouth until her acute infection clears and she sees Sheyla Ovalle for a follow up swallow evaluation. Psyche: Anxiety history. klonopin q6 prn Endocrine: hmg a1c 6.2, borderline, monitor outpatient. discharge home. Minutes to complete discharge: 60 Discharge Summary Reason For Visit: CHEST PAIN/PNEUMONIA Current Active Problems Acute on chronic diastolic CHF (congestive heart failure) (Acute) Acute on chronic respiratory failure with hypoxia and hypercapnia (Acute) Anxiety (Acute) Atypical chest pain (Acute) Chest pain (Acute) Hypokalemia (Acute) Laryngeal carcinoma (Acute) Leukocytosis (Acute) Pericardial effusion (Acute) Pneumonia (Acute) AIDS (Chronic) Condition: Guarded - Instructions Diet, Activity, Other Instructions: cefepime 2gm IVPB q12h + flagyl 500mg po tid x 2 wk Will need follow up Chest CT as an outpatient in 6 to 8 weeks Substitute cefepime 2gm IVPB q12h + flagyl 500mg po tid x [address] as outpatient Referrals: Chip Leung MD [Staff Physician] - ON STAFF,NOT [Primary Care Provider] - Disposition: HOME - Home Medications Comprehensive Discharge Medication List: Ambulatory Orders Albuterol 0.083% Nebulizer Keyonna [Ventolin 0.083% Nebulizer Soln -] 1 neb NEB Q4H PRN #1 box MDD 6 11/18/17 Albuterol Sulfate Inhaler - [Ventolin HFA Inhaler -] 1 inh IH Q4H #1 inhaler Budesonide/Formeterol Fumarate [SYMBICORT 160/4.5mcg -] 2 inh IH BID #1 inhaler 11/18/17 Emtricitabine/Tenofovir [Truvada -] 1 tab PEG DAILY #30 tablet 11/18/17 Etravirine [Intelence -] 100 mg PEG BID #60 tablet 11/18/17 Fluticasone Prop 0.05% Nasal [Flonase -] 1 - 2 spray NS DAILY #1 spray.pump Gabapentin Liquid [Neurontin Oral Liquid -] 250 mg PO BID #1 bottle 11/18/17 Raltegravir [Isentress] 400 mg PEG BID #60 tab 11/18/17 Bacitracin - [Bacitracin Topical Ointment -] 1 applic TP BID #1 applic 03/04/18 Clonazepam [Klonopin] 1 mg PO TID PRN #90 tablet MDD 3 03/04/18 Ibuprofen 1 tab PO BID #30 tablet MDD 2 03/04/18 Mirtazapine [Remeron -] 15 mg PO DAILY #30 tablet 03/04/18 Ondansetron HCl [Zofran] 4 mg PO DAILY PRN #5 tablet MDD 1 03/04/18 Sertraline HCl [Zoloft] 50 mg PO DAILY #30 tablet 03/04/18 Sertraline HCl [Zoloft] 100 mg PO AM #30 tablet 03/04/18 Zolpidem Tartrate [Ambien] 5 mg PO HS #30 tablet MDD 1 03/04/18 This patient is new to me today: No Emergency Visit: Yes ED Registration Date: 03/28/18 Care time: The patient presented to the Emergency Department on the above date and was hospitalized for further evaluation of their emergent condition. Critical Care patient: No - Discharge Referral Referred to [facility] Med P.C.: No
--- NOTE | 2018-04-26 12:50 | PN ---
Progress Note, Physician - Current Medication List Current Medications: Active Medications Acetaminophen (Tylenol -) 650 mg PO Q6H PRN PRN Reason: FEVER Last Admin: 04/25/18 09:55 Dose: 650 mg Acetylcysteine (Mucomyst 20 Oral / Inh Use Only*) 200 mg NEB Q4HWA [facility] Last Admin: 04/26/18 09:25 Dose: 200 mg Albuterol Sulfate (Ventolin 0.083% Nebulizer Soln -) 1 amp NEB Q4HWA [facility] Last Admin: 04/26/18 09:26 Dose: 1 amp Alprazolam (Xanax -) 0.25 mg PO Q6H PRN PRN Reason: ANXIETY Last Admin: 04/26/18 07:20 Dose: 0.25 mg Amino Acids (Prosource No Carb Liquid Pkt) 30 ml GT TID [facility] Last Admin: 04/26/18 06:52 Dose: 30 ml Budesonide/Formoterol Fumarate (Symbicort 160/4.5mcg -) 2 puff IH BID [facility] Last Admin: 04/26/18 09:37 Dose: 2 puff Clotrimazole (Mycelex Lasha's -) 10 mg PO 5XD [facility] Last Admin: 04/26/18 09:31 Dose: 10 mg Emtricitabine/Tenofovir (Truvada) 1 tab PO DAILY [facility] Last Admin: 04/26/18 09:35 Dose: 1 tab Etravirine (Intelence -) 100 mg PO BIDPC [facility] Last Admin: 04/26/18 09:34 Dose: 100 mg Fluticasone Propionate (Flonase -) 1 spray NS DAILY [facility] Last Admin: 04/26/18 09:37 Dose: 1 spray Gabapentin (Neurontin Oral Liquid -) 250 mg PEG BID [facility] Last Admin: 04/26/18 09:30 Dose: 5 ml IV Flush (Picc Line Flush) 8 ml IVPUSH PRN PRN PRN Reason: Protocol Metronidazole (Flagyl 500mg Premixed Ivpb -) 500 mg in 100 mls @ 100 mls/hr IVPB Q8H-IV [facility] Last Admin: 04/26/18 09:29 Dose: 100 mls/hr Meropenem 1 gm/ Dextrose 100 mls @ 200 mls/hr IVPB Q8H-IV [facility] Last Admin: 04/26/18 09:29 Dose: 200 mls/hr Ibuprofen (Caldolor Injection -) 600 mg IVPB Q6H PRN PRN Reason: PAIN LEVEL 1 - 3 Last Admin: 04/20/18 12:37 Dose: 600 mg Lactobacillus Acidophilus (Bacid -) 1 tab PO DAILY [facility] Last Admin: 04/26/18 09:37 Dose: 1 tab Mirtazapine (Remeron -) 15 mg PEG HS [facility] Last Admin: 04/25/18 23:20 Dose: 15 mg Ondansetron HCl (Zofran Injection) 4 mg IVPUSH Q6H PRN PRN Reason: NAUSEA AND/OR VOMITING Phenol/Menthol (Chloraseptic -) 1 spray MM Q6HPO PRN PRN Reason: SORE THROAT Last Admin: 04/20/18 00:14 Dose: 1 spray Prednisone (Deltasone -) 25 mg PO DAILY [facility] Last Admin: 04/26/18 09:30 Dose: 25 mg Raltegravir (Isentress -) 400 mg NR BID [facility] Last Admin: 04/26/18 09:35 Dose: 400 mg Ranitidine HCl (Zantac Oral Solution -) 150 mg PEG BID [facility] Last Admin: 04/26/18 09:38 Dose: 150 mg Sertraline HCl (Zoloft -) 50 mg PO DAILY [facility] Last Admin: 04/26/18 09:31 Dose: 50 mg Tramadol HCl (Ultram -) 50 mg PO Q6H PRN PRN Reason: PAIN LEVEL 6-10 Last Admin: 04/25/18 20:41 Dose: 50 mg Vancomycin HCl (Vancomycin Oral Solution) 125 mg PO Q6HPO [facility] Last Admin: 04/26/18 11:52 Dose: 5 ml Zolpidem Tartrate (Ambien -) 5 mg PO HS PRN PRN Reason: INSOMNIA Last Admin: 04/25/18 23:21 Dose: 5 mg - Objective Vital Signs: Vital Signs Temperature 98.8 F 04/26/18 09:06 Pulse Rate 85 04/26/18 09:25 Respiratory Rate 20 04/26/18 09:06 Blood Pressure 122/79 04/26/18 09:06 O2 Sat by Pulse Oximetry (%) 95 04/26/18 09:25 Eyes: Yes: WNL, Conjunctiva Clear, EOM Intact HENT: Yes: WNL, Atraumatic, Normocephalic Neck: Yes: WNL, Supple, Trachea Midline Cardiovascular: Yes: WNL, Regular Rate and Rhythm Respiratory: Yes: Diminished Gastrointestinal: Yes: WNL, Normal Bowel Sounds Genitourinary: Yes: WNL Musculoskeletal: Yes: WNL Extremities: Yes: WNL Edema: No Integumentary: Yes: WNL Neurological: Yes: WNL, Alert, Oriented ...Motor Strength: WNL Psychiatric: Yes: WNL Labs: CBC, BMP 04/26/18 09:30 04/26/18 09:30 INR, PTT INR 1.02 (0.83-1.09) 04/09/18 09:27 Assessment/Plan - Problems (1) Acute on chronic respiratory failure with hypoxia and hypercapnia Assessment/Plan: tracheostomy. On bronchodilators, O2, steroids per pulmonary. on multiple antibiotics for bacteremia. Code(s): J96.21 - ACUTE AND CHRONIC RESPIRATORY FAILURE WITH HYPOXIA; J96.22 - ACUTE AND CHRONIC RESPIRATORY FAILURE WITH HYPERCAPNIA (2) Laryngeal carcinoma Assessment/Plan: on O2, bronchodilators, steroids per pumonologist. s/p tracheostomy. f/u with oncologist. Code(s): C32.9 - MALIGNANT NEOPLASM OF LARYNX, UNSPECIFIED (3) AIDS Assessment/Plan: medication regimen per ID. Nutrition, physical rehabilitation. Maintain hydration. Code(s): B20 - HUMAN IMMUNODEFICIENCY VIRUS [HIV] DISEASE (4) Tobacco dependence Code(s): F17.200 - NICOTINE DEPENDENCE, UNSPECIFIED, UNCOMPLICATED (5) Tracheostomy dependence Code(s): Z93.0 - TRACHEOSTOMY STATUS (6) Atypical chest pain Assessment/Plan: Chest pain after coughing; no prior hx chest pain. She walks relatively frequently, and denies exertional chest discomfort. No acute STT changes on EKG. TNI <0.02 on multiple checks. Cholesterol well-controlled. TSH WNL. ECHO 04/08/2018: normal LVEF; normal chamber sizes; small pericardial effusion without hemodynamic compromise (effusion unchanged on repeat ECHO several days later). Code(s): R07.89 - OTHER CHEST PAIN (7) Acute on chronic diastolic CHF (congestive heart failure) Assessment/Plan: Dyspnea on mild exertion. Pleural effusion on CXR. F/u BNP 291 (was 212.6 in 2016). ECHO: normal LVEF; small pericardial effusion without hemodynamic compromise, unchanged in size. On IV furosemide prn; used cautiously due to hypotensive episodes. F/u BUN/Cr, Is and Os, daily weight, electrolytes. Code(s): I50.33 - ACUTE ON CHRONIC DIASTOLIC (CONGESTIVE) HEART FAILURE (8) Pericardial effusion Assessment/Plan: small pericardial effusion; no hemodynamic compromise; unchanged from 04/08/18 to 04/12/18. Normal LVEF Code(s): I31.3 - PERICARDIAL EFFUSION (NONINFLAMMATORY) (9) Leukocytosis Assessment/Plan: Elevated WBCs, with periodic low-grade fevers. On multiple antibiotics per ID. F/u cultures; hx Klebsiella; cavitary lesion. Maintain hydration. Code(s): D72.829 - ELEVATED WHITE BLOOD CELL COUNT, UNSPECIFIED (10) Hypokalemia Assessment/Plan: replete; keep >3.5. f/u Mg and PO4. Code(s): E87.6 - HYPOKALEMIA (11) Anxiety Assessment/Plan: on multi-drug regimen. Code(s): F41.9 - ANXIETY DISORDER, UNSPECIFIED
[2018-04-26 13:48] VITALS: PULSE 107
--- NOTE | 2018-04-26 13:54 | PN ---
Progress Note, RENT AND MISCELLANEOUS REMITTANCE CLERK - Note Progress Note: Asked by TAXATION ACCOUNTANT to visit pt before discharge. Selected Entries 04/25/18 04/25/18 04/25/18 01:58 09:22 22:00 Temperature 98.1 F 99.5 F 100.3 F H 04/26/18 04/26/18 04/26/18 01:15 07:10 09:06 Temperature 100.2 F H 99.0 F 98.8 F Laboratory Tests 04/25/18 04/26/18 10:00 09:30 WBC 10.6 H 9.5 Pt educated on frequent mouth care, HOB elevated during and after PEG feedings. Pt is NPO, on PEG feeding and supplemental chicken soup and Gatorade per pt's request via [facility].Pt educated on slow small amounts of bolus feedings, remaining upright during and after intake. Reviewed plan with PNP, regarding out pt MBS and to continue strict NPO until we can visualize swallow and r/o aspiration. This can be done once pulmonary status has improved. Pt demonstrated understanding and is in agreement and said she would comply.
== END 2018-04-26 16:58 | disposition home or self-care (01) | DRG 890 ==
LOC: JER 11:52 → JERBED 14:20 → JICU 18:26 → J5S 03-29 16:00 → JICU 03-30 14:52 → J4W 04-03 21:46
PROVIDERS: ADMIT Internal Medicine; ATTEND Nurse Practitioner Family
PROC: 06HM33Z Insertion of Infusion Device into Right Femoral Vein, Percutaneous Approach (ICD-10-PCS; principal; 2018-03-28)
PROC: 0B21XFZ Change Tracheostomy Device in Trachea, External Approach (ICD-10-PCS; 2018-03-30)
PROC: 5A1935Z Respiratory Ventilation, Less than 24 Consecutive Hours (ICD-10-PCS; 2018-03-31)
PROC: 3E0G76Z Introduction of Nutritional Substance into Upper GI, Via Natural or Artificial Opening (ICD-10-PCS; 2018-03-31)
PROC: 0W993ZZ Drainage of Right Pleural Cavity, Percutaneous Approach (ICD-10-PCS; 2018-04-08)
PROC: 0D20XUZ Change Feeding Device in Upper Intestinal Tract, External Approach (ICD-10-PCS; 2018-04-09)
PROC: 02HV33Z Insertion of Infusion Device into Superior Vena Cava, Percutaneous Approach (ICD-10-PCS; 2018-04-26)
PROC: B548ZZA Ultrasonography of Superior Vena Cava, Guidance (ICD-10-PCS; 2018-04-26)
DX: A41.59 Other Gram-negative sepsis (principal); B20 Human immunodeficiency virus [HIV] disease; R62.7 Adult failure to thrive; R07.89 Other chest pain; E43 Unspecified severe protein-calorie malnutrition; J18.9 Pneumonia, unspecified organism; J98.11 Atelectasis; R19.7 Diarrhea, unspecified; J38.3 Other diseases of vocal cords; R64 Cachexia; Z68.1 Body mass index [BMI] 19.9 or less, adult; J44.9 Chronic obstructive pulmonary disease, unspecified; F17.210 Nicotine dependence, cigarettes, uncomplicated; J96.21 Acute and chronic respiratory failure with hypoxia; F41.9 Anxiety disorder, unspecified; R05 Cough; E87.6 Hypokalemia; C76.0 Malignant neoplasm of head, face and neck; J96.22 Acute and chronic respiratory failure with hypercapnia; R16.0 Hepatomegaly, not elsewhere classified; N20.0 Calculus of kidney; R00.0 Tachycardia, unspecified; R50.9 Fever, unspecified; J90 Pleural effusion, not elsewhere classified; I11.0 Hypertensive heart disease with heart failure; I50.33 Acute on chronic diastolic (congestive) heart failure; A04.72 Enterocolitis due to Clostridium difficile, not specified as recurrent; D72.829 Elevated white blood cell count, unspecified; I31.3 Pericardial effusion (noninflammatory); Z86.19 Personal history of other infectious and parasitic diseases; Z79.52 Long term (current) use of systemic steroids; Z93.0 Tracheostomy status; Z93.1 Gastrostomy status; Z85.21 Personal history of malignant neoplasm of larynx
CPT/HCPCS: 36415; 36569; 36600; 49450; 71045-TC-FY; 71046-TC-FY; 71250-TC; 74018-TC-FY; 74019-TC-FY; 74176-TC; 76942; 77001-TC-FY; 80048; 80053; 80061; 81003; 81015; 82042; 82150; 82272; 82436; 82550; 82553; 82803; 82945; 82962; 83036; 83605; 83615; 83721; 83735; 83880; 84100; 84157; 84443; 84478; 84484; 84703; 85025; 85027; 85610; 85730; 86359; 86360; 87040; 87045; 87046; 87070; 87075; 87086; 87102; 87116; 87177; 87186; 87205; 87206; 87209; 87210; 87324; 87449; 87493; 87804; 88108; 88305-TC; 89051; 93005; 93010; 93306-TC; 94002; 94010; 94640; 94761; 97116-GP; 97162-GP; 99284-25; C1751; J0131; J1644; J7030; J7620

== ENCOUNTER 2018-05-28 13:12 | Inpatient (IN) | payer OTHER ==
[2018-05-28] MEDS ORDERED: SODIUM CHLORIDE 1,000 ML IV ONE ×2 (13:48→14:46)
--- NOTE | 2018-05-28 13:51 | PDOC ---
Attending Attestation - Resident Resident Name: Asha Woodward - ED Attending Attestation I have performed the following: I have examined & evaluated the patient, The case was reviewed & discussed with the resident, I agree w/resident's findings & plan, Exceptions are as noted - Physicial Exam PE: 05/28/18 14:08 GENERAL: The patient is awake, alert, and fully oriented, thin/cachectic appearing HEAD: Normocephalic, atraumatic. EYES: extraocular movements intact, sclera anicteric, conjunctiva clear. ENT: Normal voice, Moist mucous membranes. NECK: Normal range of motion, supple LUNGS: deminished breath sounds on RUL, rales at R base, good air flow in L lung without abnormal sounds HEART: tachcyardic, regular ABDOMEN: Soft, non tender, PEG in place EXTREMITIES: Normal range of motion, no edema. NEUROLOGICAL: No facial assymetry, Normal speech, PSYCH: Normal mood, normal affect. SKIN: Warm, Dry, normal turgor, - Critical Care Time Total Critical Care Time: 55 Critical Care Statement: The care of this patient involved high complexity decision making to prevent further life threatening deterioration of the patient 's condition and/or to evaluate & treat vital organ system(s) failure or risk of failure. - Medical Decision Making 05/28/18 14:03 48y F hx of HIV (on HAART, cd4 wnl, vrl und per family), COPD, presents with n/v /d, fevers, cough productive of variable sputum the past 5 days - pt had recent hospitalization for pneumonia and was on abx w/ picc line and was feeling well until this past thursday. Upon arrival the patient was noted to be febrile to 100.4 with a heart rate of 124, satting in the mid 80s on 2 L of nasal cannula - her oxygenation improved with blowby o2 into her trach. saturation also seemed to improve with suctioning of her trach. Differential for the patient's symptoms includes but not limited to pneumonia, C. difficile, influenza Sepsis order set was obtained The patient will be started on fluids for fluid resuscitation as her blood pressure is slightly low. 05/28/18 14:57 labs ntoed for left shift lactic acid level of 4.8 noted - severe sepsis - will give 30cc/kg of fluids and rpeat LA will start broad spectrum abx A portion of this note was documented by scribe services under my direction. 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 Per significant other who assisted with the history, the patient was discharged from the hospital about 3 weeks prior with a PICC line with antibiotics. The partner reports on 05/21 the visiting nurse removed the PICC line. On Thursday, the patient developed swelling in the mouth secondary to a tooth infection. The patient was seen by dentist, who prescribed amoxicillin. The reports, since Thursday patients been having progressively worsening weakness, uncontrollable diarrhea (baseline soft stool), vomiting (NBNB), fever (highest recorded by the spouse was 103), productive cough with increased phlegm production, chest pain. Per , they decided to seek care due to increased weakness with difficulty ambulating out of bed. The reports the patient is compliant with all her medications. Per prior records, the patient was admitted to the hospital on 03/28/18 for increased temperature of 103, vomiting, diarrhea, SOB, CP and cough that presented about 4 days prior to arrival. At the ED, the patient was noted to have yellow purulent discharge from the trach. The patient was admitted to the ICU with hypotension with SBP in the 80s. During the stay, the patient developed pneumonia and was started on IV abx (Zosyn and Vanco). Repeated chest CT on Apr 19, showed large left upper lobe infiltrate seen with interval development of cavitation and small bilateral pleural effusions. The patient was placed on IV Meropenem and Flagyl. The patient was discharged home on with a PICC line with cefepime 2 mg IVPB and Flagyl 500 mg PO. Allergies: sulfamethoxazole, trimethoprim, abacavir sulfate, atazanavir sulfate , azithromycin, dapsone Social history: Former smoker (quit 2016), No alcohol use reported. Prior Marijuana use reported. Surgical history: PEG, Partial laryngectomy, tracheostomy, knee arthroscopic surgery PCP: [facility] ID: Dr. Messer blow off worker Dr. Leung. " 05/28/18 14:38 - Medical Decision Making 05/28/18 15:17 ICU resident paged. 05/28/18 15:[address] Artis. 05/28/18 17:46 ICU resident paged. 05/28/18 17:[address] Rico. 05/28/18 18:13 Documentation prepared by Suzanne Lawrence, acting as medical assistant supervisor for Jeronimo Osullivan MD. <Suzanne Lawrecne - Last Filed: 05/28/18 18:13> Heart Score/ECG Review - ECG Impressions Comment:: 05/28/18 14:07 Twelve-lead EKG was performed and reviewed by me. There is normal sinus rhythm with a rate of 125 <Jeronimo Osullivan - Last Filed: 05/28/18 18:09>
--- NOTE | 2018-05-28 14:07 | PDOC ---
History of Present Illness - General Chief Complaint: Weakness Stated Complaint: VOMITING, FEVER, DIARRHEA Time Seen by Provider: 05/28/18 13:18 History Source: Patient, Spouse () Exam Limitations: No Limitations - History of Present Illness Initial Comments: 05/28/18 14:24 Pt is a 48yo f with PMH of HIV/AIDS, laryngeal ca s/p tracheostomy, failure to thrive, PEG tube, HepB, COPD/Asthma BIBA for vomiting, diarrhea, increased mucus production and cough and generalized weakness. Per , pt had a tooth infection 4 days ago on Thursday, went to the dentist, was given amoxicillin and "everything went downhill". Pt started becoming lethargic, vomiting, diarrhea, cough, SOB, increased mucus production, fevers. says fevers were on and off and would get as high as 104. Pt was recently d/c from the hospital for pneumonia on 04/26. She was d/c with PICC line (cefepime). PICC line was removed 1.5 weeks ago. She takes her medications daily (crushed through PEG). says pt CD4 counts are "fine" and viral load is undetectable. Pt complains of generalized abdominal pain as well. PMD: ID: Gui Pulm: Madhu Meds: see med rec Social: quit tobacco 2-3 years ago Allergies: sulfa PSH: tracheostomy tube, PEG tube PMH: see hpi Past History - Past Medical History Allergies/Adverse Reactions: Allergies Allergy/AdvReac Type Severity Reaction Status Date / Time sulfamethoxazole Allergy Unknown Rash Verified 05/28/18 13:36 [From Bactrim] trimethoprim [From Bactrim] Allergy Unknown Rash Verified 05/28/18 13:36 abacavir sulfate Allergy Rash Verified 05/28/18 13:36 [From Ziagen] atazanavir sulfate Allergy Rash Verified 05/28/18 13:36 [From Reyataz] azithromycin Allergy Rash Verified 05/28/18 13:36 dapsone Allergy Rash Verified 05/28/18 13:36 Home Medications: Ambulatory Orders Zolpidem Tartrate [Ambien] 5 mg PO HS #30 tablet MDD 1 03/04/18 Acetaminophen [Tylenol .Regular Strength -] 650 mg PO Q6H PRN tablet 04/26/18 Acetylcysteine Po/INH 20% [Mucomyst 20 Oral / INH Use Only*] 200 mg NEB Q4HWA PRN #1 vial 05/06/18 Albuterol 0.083% Nebulizer Keyonna [Ventolin 0.083% Nebulizer Soln -] 1 neb NEB Q4H PRN #1 box MDD 6 05/06/18 Emtricitabine/Tenofovir [Truvada -] 1 tab PEG DAILY #30 tablet 05/06/18 Etravirine [Intelence -] 100 mg PEG BID #60 tablet 05/06/18 Gabapentin Liquid [Neurontin Oral Liquid -] 250 mg PO BID #1 bottle 05/06/18 Raltegravir [Isentress] 400 mg PEG BID #60 tab 05/06/18 Amoxicillin - [Amoxicillin 500mg Capsule -] 500 mg PO Q8H 05/28/18 Clonazepam [Klonopin] 1 mg GT TID PRN MDD 3 05/28/18 Mirtazapine [Remeron -] 15 mg GT DAILY 05/28/18 Prednisone 15 mg GT DAILY 05/28/18 Sertraline HCl [Zoloft] 100 mg GT AM 05/28/18 Anemia: No Asthma: Yes Cancer: Yes (laryngeal) Cardiac Disorders: No CVA: No COPD: No CHF: No Dementia: No Diabetes: No GI Disorders: Yes (failure to thrive, peg tube ) Disorders: No HTN: No Hypercholesterolemia: No Liver Disease: No Seizures: No Thyroid Disease: No - Surgical History Abdominal Surgery: No Appendectomy: No Cardiac Surgery: No Cholecystectomy: No GI Surgery: Yes (g tube) Lung Surgery: No Neurologic Surgery: No Orthopedic Surgery: Yes (knee arthroscopic surgery) - Immunization History Immunization Up to Date: Yes - Suicide/Smoking/Psychosocial Hx Smoking Status: Yes Smoking History: Never smoked Have you smoked in the past 12 months: Yes Number of Cigarettes Smoked Daily: 20 If you are a former smoker, when did you quit?: 2016 Cigars Per Day: 0 Information on smoking cessation initiated: No 'Breaking Loose' booklet given: 05/05/16 Hx Alcohol Use: No Drug/Substance Use Hx: No Substance Use Type: None Hx Substance Use Treatment: No Review of Systems - Review of Systems Constitutional: Yes: Fever, Loss of Appetite, Weakness HEENTM: Yes: Throat Pain, Dental Problems. No: Symptoms Reported Respiratory: Yes: Cough, Shortness of Breath Cardiac (ROS): Yes: Lightheadedness. No: Chest Pain, Syncope ABD/GI: Yes: Diarrhea, Nausea, Poor Appetite, Vomiting, Abdominal cramping. No : Blood Streaked Bowels, Constipated, Rectal Bleeding, Tarry Stools Musculoskeletal: Yes: Muscle Pain, Muscle Weakness. No: Back Pain, Joint Pain, Joint Stiffness Integumentary: No: Lesions, Pallor, Rash Neurological: Yes: Headache. No: Numbness, Tingling *Physical Exam - Vital Signs Last Vital Signs Temp Pulse Resp BP Pulse Ox 100.7 F H 123 H 18 95/72 83 L 05/28/18 13:34 05/28/18 13:34 05/28/18 13:34 05/28/18 13:34 05/28/18 13:34 - Physical Exam General Appearance: Yes: Appropriately Dressed, Severe Distress, Cachetic HEENT: positive: EOMI, BOWEN, Hearing Grossly Normal, Other (plaques on tongue and gums). negative: Pale Conjunctivae, Photophobia, Scleral Icterus (R), Scleral Icterus (L), Tonsillar Exudate, Tonsillar Erythema, Nasal Congestion Neck: positive: Trachea midline, Other (Tracheostomy tube in place). negative: Lymphadenopathy (R), Lymphadenopathy (L) Respiratory/Chest: positive: Rapid RR, Decreased Breath Sounds (L lung gavin and R upper field), Crackles (R lower lung field). negative: Chest Tender, Lungs Clear, Accessory Muscle Use Cardiovascular: positive: Regular Rhythm, S1, S2, Tachycardia. negative: Edema , JVD, Murmur Vascular Pulses: Carotid (R): 2+, Carotid (L): 2+, Dorsalis-Pedis (R): 2+, Doralis-Pedis (L): 2+ Gastrointestinal/Abdominal: positive: Normal Bowel Sounds, Soft, Tenderness (in all quadrants), Other (PEG tube in place). negative: Distended, Guarding, Rebound Musculoskeletal: negative: CVA Tenderness, Decreased Range of Motion Extremity: positive: Normal Capillary Refill. negative: Pedal Edema, Swelling, Calf Tenderness Integumentary: positive: Normal Color, Dry, Warm. negative: Rash Neurologic: positive: casino games dealer II-XII NML intact, Fully Oriented, Alert, Normal Response, Motor Strength 5/5 ED Treatment Course - LABORATORY CBC & Chemistry Diagram: 05/28/18 13:53 05/28/18 13:53 Medical Decision Making - Critical Care Time Total Critical Care Time (minutes): 30 Critical Care Statement: The care of this patient involved high complexity decision making to prevent further life threatening deterioration of the patient 's condition and/or to evaluate & treat vital organ system(s) failure or risk of failure. - Medical Decision Making 05/28/18 14:33 Pt is a 48yo f with PMH of HIV/AIDS, laryngeal ca s/p tracheostomy, failure to thrive, PEG tube, HepB, COPD/Asthma BIBA for vomiting, diarrhea, increased mucus production and cough and generalized weakness. Vitals: tachycardia in 120s, BP 95/72 (MAP 79) 83%RA. RR18 PE: crackles R lower lung base, reduced sounds in RUL, normal cap. refill, pulses palpable bilaterally, cachectic Pt meets criteria for sepsis. Sepsis workup ordered. flu swab ordered. Suctioned trach tube, oxygenation improved to mid-high 80s. NC not helping pt oxygenate. Placed NRB on trach, oxygenation increased to high 90s. 05/28/18 15:18 EKG: sinus tachycardia. no lisa or depressions. Lactic acid 4.8 WBC 5.9, Hgb 10.3 (baseline) , Cr 1.5, LD 287. UA not clean, will need repeat Pt meets severe sepsis, will start on fluids. Give 2L. and started vanc and zosyn Consulted ICU. Will recheck lact before deciding admission to icu or floor. Pt complaining of headache, gave Tylenol for fever and headache. Pt still tachycardic in 100s-110, Saturating in high 80s on RA, up to 100 with nebs/oxy on trach. Pt asked for nebulized mucinex. Will consult ICU. CXR- RLL pna less tachy, still low saturation, tachypnea. 2 L fluids. Cdiff positive (05/06) stool cultures ordered. 05/28/18 18:10 repeat lact after 2 L is 4.4. 3rd liter running. 80s/60s with MAP 73, will hold off on central line for now. Pt met sepsis criteria (T >100.4, HR >90, RR >20) and severe sepsis criteria ( SBP <90, Cr>2, Lac >2). R lower lobe infiltrate. Most likely severe sepsis due to pna. 05/28/18 18:37 Accepted to ICU by Dr. Rico. Consult order for Dr. Messer. 05/28/18 18:[address] Quintana *DC/Admit/Observation/Transfer Diagnosis at time of Disposition: Severe sepsis PNA (pneumonia) Qualifiers: Pneumonia type: due to unspecified organism Laterality: right Lung location: lower lobe of lung Qualified Code(s): J18.1 - Lobar pneumonia, unspecified organism - Discharge Dispostion Condition at time of disposition: Stable Decision to Admit order: Yes - Referrals - Patient Instructions - Post Discharge Activity
[2018-05-28 14:28] LABS: VENOUS PC02 39.6 mmHg (38-52); VENOUS PH 7.4 (7.32-7.42)
[2018-05-28 14:29] LABS: VENOUS PO2 56.8 mmHg (28-48)
[2018-05-28 14:32] LABS: INR 1.17 (0.83-1.09); PROTHROMBIN TIME (PATIENT) 13.8 SEC (9.7-13.0)
[2018-05-28 14:33] LABS: BASO % 0.9 % (0-2.0); EOS % 0.4 % (0-4.5); HEMATOCRIT 31.9 % (32.4-45.2); HEMOGLOBIN 10.3 GM/dL (10.7-15.3); LYMPH % 4.9 % (8-40); MCHC 32.2 g/dl (32.0-36.0); MEAN CELL VOLUME 96.3 fl (80-96); MEAN PLT VOLUME 8.2 fl (7.5-11.1); MONO % 0.7 % (3.8-10.2); NEUT % 93.1 % (42.8-82.8); PLATELET COUNT 259 K/MM3 (134-434); RBC 3.31 M/mm3 (3.60-5.2); RDW 15.3 % (11.6-15.6); WHITE BLOOD COUNT 5.9 K/mm3 (4.0-10.0)
[2018-05-28 14:35] LABS: ACTIVATED PTT 31.3 SECONDS (25.2-36.5)
[2018-05-28] MEDS ORDERED: PIPERACILLIN/TAZOB 3.375 GM 3.375 GM in DEXTROSE 5%-WATER - 50 ML IVPB ONE (14:47)
[2018-05-28] MEDS ORDERED: ACETYLCYSTEINE 20% 200MG/ML 30 ML VIAL *FOR ORAL / INH USE ONLY NEB ONE ×2 (14:55→15:19)
[2018-05-28] MEDS ORDERED: ALBUTEROL SO4 2.5/IPRATROPIUM 0.5 INH SOL 3 ML VIAL.NEB. NEB ONE ×2 (14:55→15:08)
[2018-05-28] MEDS ORDERED: ACETYLCYSTEINE 20% 200MG/ML 4 ML VIAL *FOR ORAL / INH USE ONLY ONE (15:01)
[2018-05-28 15:02] LABS: ALBUMIN 2.3 g/dl (3.4-5.0); ALK PHOS 79 U/L (45-117); ANION GAP 12 MMOL/L (8-16); BILIRUBIN,TOTAL 0.3 mg/dL (0.2-1); BLOOD UREA NITROGEN 53 mg/dL (7-18); CALCIUM 8.3 mg/dL (8.5-10.1); CHLORIDE 101 mmol/L (98-107); CO2 26 mmol/L (21-32); CREATININE 1.5 mg/dL (0.55-1.3); GLUCOSE,RANDOM 130 mg/dL (74-106); LDH 287 U/L (84-246); POTASSIUM 3.7 mmol/L (3.5-5.1); SGOT/AST 26 U/L (15-37); SGPT/ALT 19 U/L (13-61); SODIUM 139 mmol/L (136-145)
[2018-05-28] MEDS ORDERED: ALBUTEROL SO4 0.083% IH SOL 2.5 MG/3 ML VIAL.NEB. NEB ONE (15:02)
[2018-05-28] MEDS ORDERED: PIPERACILLIN/TAZOB 3.375 GM 3.375 GM/50 ML BAG IVPB ONE ×2 (15:08→19:09)
[2018-05-28 15:10] LABS: URINE APPEARANCE TURBID; URINE BILIRUBIN NEGATIVE (<2.0 mg/dL); URINE COLOR AMBER; URINE GLUCOSE (UA) NEGATIVE (NEGATIVE); URINE KETONE NEGATIVE (NEGATIVE); URINE LEUK ESTERASE NEGATIVE (NEGATIVE); URINE NITRITE NEGATIVE (NEGATIVE); URINE PROTEIN 2+ (NEGATIVE); URINE UROBILINOGEN NEGATIVE mg/dL (0.2-1.0)
[2018-05-28] MEDS ORDERED: ACETAMINOPHEN 1000 MG/100 ML VIAL (NON FORMULARY) IVPB ONE ×2 (15:11→22:51)
[2018-05-28 15:16] LABS: EPI CELLS MANY /HPF (FEW); URINE BACTERIA RARE /hpf (NONE SEEN); URINE HYALINE CAST 66 /lpf; URINE MUCUS RARE
[2018-05-28] MEDS ORDERED: ACETAMINOPHEN INJECTION 100 ML IVPB ONE (15:22)
--- NOTE | 2018-05-28 16:46 | CONSULT ---
Consultation: REQUESTING PROVIDER: CONSULT REQUEST: ICU HISTORY OF PRESENT ILLNESS: 48 yo f with PMH of HIV/AIDS, laryngeal ca s/p tracheostomy, failure to thrive, PEG tube, Hep B, COPD, Asthma, positive C-diff (05/21), was brought in by ambulance because of sob this morning. Patient says since Thursday she started coughing with increasing yellow sputum production and fevers of 103. She also complains of nausea, and 3 episodes of nonbilious vomiting. Patient says she has had non-bloody watery diarrhea and has had over 7 BM since yesterday. She was discharged on IV abx via picc line on 04/26, and recently started on Amoxicillin on Thursday by her dentist. She denies chest pain, chills, palpitations, loc, urinary symptoms. Patient presented to the ED hypoxic in the 70's. After suctioning, patient's O2 sats were in the high 90's. Currently patient is saturating 100% on RA while receiving duonebs. BP: 120's/90's HR: 110 Temp: 100.7 REVIEW OF SYSTEMS: CONSTITUTIONAL: fevers, chills, weakness Absent: malaise, loss of appetite, weight change HEENT: Absent: rhinorrhea, nasal congestion, throat pain, throat swelling, difficulty swallowing CARDIOVASCULAR: Absent: chest pain, syncope, palpitations, irregular heart rate, lightheadedness , peripheral edema RESPIRATORY: cough, sob Absent: dyspnea with exertion, orthopnea, wheezing, stridor, hemoptysis GASTROINTESTINAL: abdominal pain, nausea, vomiting, diarrhea Absent: abdominal distension, constipation, melena, hematochezia GENITOURINARY: Absent: dysuria, frequency, urgency, hesitancy, hematuria, flank pain, genital pain MUSCULOSKELETAL: PHYSICAL EXAMINATION Vital Signs - 24 hr 05/28/18 05/28/18 13:34 14:25 Temperature 100.7 F H 100.7 F H Pulse Rate 123 H Respiratory 18 Rate Blood Pressure 95/72 O2 Sat by Pulse 83 L Oximetry (%) GENERAL: lethargic, awake and alert HEAD: Normal with no signs of trauma. EYES: sclera anicteric, conjunctiva clear. EARS, NOSE, THROAT: Moist mucous membranes. NECK: supple LUNGS: course breath sounds, decreased bs in RLL HEART: tachy, regular rhythm ABDOMEN: Soft, nontender, peg in place CDI, not distended, normoactive bowel sounds LOWER EXTREMITIES: 2+ pulses, warm, well-perfused. NEUROLOGICAL: Cranial nerves II-XII intact Laboratory Results - last 24 hr 05/28/18 05/28/18 05/28/18 13:52 13:53 13:53 WBC 5.9 RBC 3.31 L Hgb 10.3 L Hct 31.9 L MCV 96.3 H MCH 31.0 MCHC 32.2 RDW 15.3 Plt Count 259 MPV 8.2 Absolute Neuts (auto) 5.5 Neutrophils % 93.1 H Lymphocytes % 4.9 L D Monocytes % 0.7 L D Eosinophils % 0.4 D Basophils % 0.9 D Nucleated RBC % 0 PT with INR 13.80 H INR 1.17 H PTT (Actin FS) 31.3 VBG pH POC VBG pCO2 POC VBG pO2 Mixed VBG HCO3 Sodium Potassium Chloride Carbon Dioxide Anion Gap BUN Creatinine Creat Clearance w eGFR Random Glucose Lactic Acid 4.8 H* Calcium Total Bilirubin AST ALT Alkaline Phosphatase LD Total Troponin I Total Protein Albumin Urine Color Urine Appearance Urine pH Ur Specific [place] Urine Protein Urine Glucose (UA) Urine Ketones Urine Blood Urine Nitrite Urine Bilirubin Urine Urobilinogen Ur Leukocyte Esterase Urine WBC (Auto) Urine RBC (Auto) Ur Epithelial Cells Urine Bacteria Hyaline Casts Urine Mucus 05/28/18 05/28/18 05/28/18 13:53 13:53 13:53 WBC RBC Hgb Hct MCV MCH MCHC RDW Plt Count MPV Absolute Neuts (auto) Neutrophils % Lymphocytes % Monocytes % Eosinophils % Basophils % Nucleated RBC % PT with INR INR PTT (Actin FS) VBG pH 7.40 POC VBG pCO2 39.6 POC VBG pO2 56.8 H Mixed VBG HCO3 23.8 Sodium 139 Potassium 3.7 Chloride 101 Carbon Dioxide 26 Anion Gap 12 BUN 53 H Creatinine 1.5 H Creat Clearance w eGFR 36.91 Random Glucose 130 H Lactic Acid Calcium 8.3 L Total Bilirubin 0.3 AST 26 ALT 19 Alkaline Phosphatase 79 LD Total 287 H Troponin I < 0.02 Total Protein 6.0 L Albumin 2.3 L Urine Color Urine Appearance Urine pH Ur Specific [place] Urine Protein Urine Glucose (UA) Urine Ketones Urine Blood Urine Nitrite Urine Bilirubin Urine Urobilinogen Ur Leukocyte Esterase Urine WBC (Auto) Urine RBC (Auto) Ur Epithelial Cells Urine Bacteria Hyaline Casts Urine Mucus 05/28/18 14:23 WBC RBC Hgb Hct MCV MCH MCHC RDW Plt Count MPV Absolute Neuts (auto) Neutrophils % Lymphocytes % Monocytes % Eosinophils % Basophils % Nucleated RBC % PT with INR INR PTT (Actin FS) VBG pH POC VBG pCO2 POC VBG pO2 Mixed VBG HCO3 Sodium Potassium Chloride Carbon Dioxide Anion Gap BUN Creatinine Creat Clearance w eGFR Random Glucose Lactic Acid Calcium Total Bilirubin AST ALT Alkaline Phosphatase LD Total Troponin I Total Protein Albumin Urine Color Naima Urine Appearance Turbid Urine pH 5.0 Ur Specific [place] 1.020 Urine Protein 2+ H Urine Glucose (UA) Negative Urine Ketones Negative Urine Blood Negative Urine Nitrite Negative Urine Bilirubin Negative Urine Urobilinogen Negative Ur Leukocyte Esterase Negative Urine WBC (Auto) 19 Urine RBC (Auto) 4 Ur Epithelial Cells Many Urine Bacteria Rare Hyaline Casts 66 Urine Mucus Rare ASSESSMENT/PLAN: #Acute hypoxic respiratory failure #HIV/AIDS #laryngeal ca s/p tracheostomy #Hep B #COPD #Asthma Plan: -R/o PNA -CXR- Right base infiltrate with fluid -IV Abx -Fluids -O2 -maintain O2 sat >90% -duonebs -mucomyst -repeat LA -C. diff toxins -ID -Admit to 4S/4W for continuous oximetry. Dispo: We will continue to follow the patient. Thank you for this consultative opportunity. Visit type - Emergency Visit Emergency Visit: Yes Care time: The patient presented to the Emergency Department on the above date and was hospitalized for further evaluation of their emergent condition. - New Patient This patient is new to me today: Yes Date on this admission: 05/28/18 - Critical Care Critical Care patient: No
[2018-05-28] MEDS ORDERED: SODIUM CHLORIDE 1,000 ML IV STA (17:15)
[2018-05-28] MEDS ORDERED: PIPERACILLIN/TAZOB 3.375 GM 3.375 GM in DEXTROSE 5%-WATER - 50 ML IVPB SCH (18:00)
[2018-05-28] MEDS ORDERED: SODIUM CHLORIDE 1,000 ML IV SCH (18:15)
[2018-05-28] MEDS ORDERED: morphine CARPU-JECT 2 MG/1 ML DISP.SYRIN IM ONE (18:49)
[2018-05-28] MEDS ORDERED: morphine SULFATE 4 MG/ML VIAL ONE (18:50)
[2018-05-28 19:00] LABS: URINE APPEARANCE SLCLOUDY; URINE BILIRUBIN NEGATIVE (<2.0 mg/dL); URINE COLOR LTYELLOW; URINE GLUCOSE (UA) NEGATIVE (NEGATIVE); URINE KETONE NEGATIVE (NEGATIVE); URINE LEUK ESTERASE NEGATIVE (NEGATIVE); URINE NITRITE NEGATIVE (NEGATIVE); URINE PROTEIN NEGATIVE (NEGATIVE); URINE UROBILINOGEN NEGATIVE mg/dL (0.2-1.0)
[2018-05-28] MEDS: PIPERACILLIN/TAZOB 3.375 GM 3.375 GM in DEXTROSE 5%-WATER - 50 ML IVPB SCH (19:12)
[2018-05-28] MEDS ORDERED: ACETYLCYSTEINE NEB PRN (21:35)
[2018-05-28] MEDS ORDERED: ACETAMINOPHEN 325 MG TABLET (FP) PO PRN (21:35)
[2018-05-28] MEDS ORDERED: ALBUTEROL SO4 0.083% IH SOL 2.5 MG/3 ML VIAL.NEB. NEB PRN (21:35)
--- NOTE | 2018-05-28 21:40 | HP ---
CHIEF COMPLAINT: fever, sob, weakness, mucous PCP: roldan arcos, HISTORY OF PRESENT ILLNESS: Pt verbally limited b/c of trach. Pt's aided in history. Pt is a 48 y/o F HIV/AIDS, laryngeal ca s/p tracheostomy, failure to thrive, PEG tube, Hep B, COPD, Asthma, positive C-diff (05/21) BIBA for SOB/increased mucus/fatigue for 7-10 days. Pt was recently admitted with PNA and was treated with Cefepime via PICC. She completed her treatment and felt well. Pt went to the dentist 1.5 weeks ago and was given Amoxicillin. states she has been worsening since that time. She has been experiencing sob, fatigue, and increased mucous production. also states she had a measured temp of 103 at home. Pt also admits to copious nonbloody diarrhea. ER course was notable for: (1) sats in 80s on RA responsive to O2. temp 100.7. BP in 80s/40-60s (2) NS, ofirmev, zosyn, acetylcysteine (3) Recent Travel: denies PAST MEDICAL HISTORY: as above PAST SURGICAL HISTORY: trach, PEG Social History: Smoking: former. quit 2016 Alcohol: Drugs: Family History: Allergies sulfamethoxazole [From Bactrim] Allergy (Unknown, Verified 05/28/18 13:36) Rash trimethoprim [From Bactrim] Allergy (Unknown, Verified 05/28/18 13:36) Rash abacavir sulfate [From Ziagen] Allergy (Verified 05/28/18 13:36) Rash atazanavir sulfate [From Reyataz] Allergy (Verified 05/28/18 13:36) Rash azithromycin Allergy (Verified 05/28/18 13:36) Rash dapsone Allergy (Verified 05/28/18 13:36) Rash HOME MEDICATIONS: Home Medications Medication Instructions Recorded Zolpidem Tartrate [Ambien] 5 mg PO HS #30 tablet MDD 1 03/04/18 Acetaminophen [Tylenol .Regular 650 mg PO Q6H PRN tablet 04/26/18 Strength -] Acetylcysteine Po/INH 20% 200 mg NEB Q4HWA PRN #1 vial 05/06/18 [Mucomyst 20 Oral / INH Use Only*] Albuterol 0.083% Nebulizer Keyonna 1 neb NEB Q4H PRN #1 box MDD 6 05/06/18 [Ventolin 0.083% Nebulizer Soln -] Emtricitabine/Tenofovir [Truvada -] 1 tab PEG DAILY #30 tablet 05/06/18 Etravirine [Intelence -] 100 mg PEG BID #60 tablet 05/06/18 Gabapentin Liquid [Neurontin Oral 250 mg PO BID #1 bottle 05/06/18 Liquid -] Raltegravir [Isentress] 400 mg PEG BID #60 tab 05/06/18 Amoxicillin - [Amoxicillin 500mg 500 mg PO Q8H 05/28/18 Capsule -] Clonazepam [Klonopin] 1 mg GT TID PRN MDD 3 05/28/18 Mirtazapine [Remeron -] 15 mg GT DAILY 05/28/18 Prednisone 15 mg GT DAILY 05/28/18 Sertraline HCl [Zoloft] 100 mg GT AM 05/28/18 REVIEW OF SYSTEMS CONSTITUTIONAL: fever, generalized weakness Absent: chills, diaphoresis, , malaise, loss of appetite, weight change HEENT: nasal congestion Absent: rhinorrhea, , throat pain, throat swelling, difficulty swallowing, mouth swelling, ear pain, eye pain, visual changes CARDIOVASCULAR: Absent: chest pain, syncope, palpitations, irregular heart rate, lightheadedness , peripheral edema RESPIRATORY: shortness of breath Absent: cough, , dyspnea with exertion, orthopnea, wheezing, stridor, hemoptysis GASTROINTESTINAL:diarrhea Absent: abdominal pain, abdominal distension, nausea, vomiting, , constipation, melena, hematochezia GENITOURINARY: Absent: dysuria, frequency, urgency, hesitancy, hematuria, flank pain, genital pain MUSCULOSKELETAL: Absent: myalgia, arthralgia, joint swelling, back pain, neck pain SKIN: Absent: rash, itching, pallor HEMATOLOGIC/IMMUNOLOGIC: Absent: easy bleeding, easy bruising, lymphadenopathy, frequent infections ENDOCRINE: Absent: unexplained weight gain, unexplained weight loss, heat intolerance, cold intolerance NEUROLOGIC: Absent: headache, focal weakness or paresthesias, dizziness, unsteady gait, seizure, mental status changes, bladder or bowel incontinence PSYCHIATRIC: Absent: anxiety, depression, suicidal or homicidal ideation, hallucinations. PHYSICAL EXAMINATION Vital Signs - 24 hr 05/28/18 05/28/18 05/28/18 13:34 14:00 14:25 Temperature 100.7 F H 100.7 F H Pulse Rate 123 H Pulse Rate [ 120 H Apical] Respiratory 18 18 Rate Blood Pressure 95/72 Blood Pressure 100/65 [Right Arm] O2 Sat by Pulse 83 L 95 Oximetry (%) 05/28/18 05/28/18 05/28/18 16:37 17:39 17:41 Temperature 98.8 F Pulse Rate Pulse Rate [ 114 H 105 H Apical] Respiratory 17 18 Rate Blood Pressure Blood Pressure 102/76 89/66 L [Right Arm] O2 Sat by Pulse 100 99 99 Oximetry (%) 05/28/18 19:10 Temperature 98.8 F Pulse Rate 115 H Pulse Rate [ 115 H Apical] Respiratory 23 H Rate Blood Pressure 103/75 Blood Pressure 103/75 [Right Arm] O2 Sat by Pulse 98 Oximetry (%) Gen: Frail appearing, uncomfortable, difficulty breathing (not in distress) HEENT: temporal wasting, atraumatic, dry membranes Neck: supple, no jvd Cardio: dificult to auscultated. Normal s1s2. Tachycardic. no murmurs appreciated Pulm: coarse breath sounds b/l. Poor effort Abd: nondistended, soft, nontender Ext: no edema, 2+ pulses Laboratory Results - last 24 hr 05/28/18 05/28/18 05/28/18 13:52 13:53 13:53 WBC 5.9 RBC 3.31 L Hgb 10.3 L Hct 31.9 L MCV 96.3 H MCH 31.0 MCHC 32.2 RDW 15.3 Plt Count 259 MPV 8.2 Absolute Neuts (auto) 5.5 Neutrophils % 93.1 H Lymphocytes % 4.9 L D Monocytes % 0.7 L D Eosinophils % 0.4 D Basophils % 0.9 D Nucleated RBC % 0 PT with INR 13.80 H INR 1.17 H PTT (Actin FS) 31.3 VBG pH POC VBG pCO2 POC VBG pO2 Mixed VBG HCO3 Sodium Potassium Chloride Carbon Dioxide Anion Gap BUN Creatinine Creat Clearance w eGFR Random Glucose Lactic Acid 4.8 H* Calcium Total Bilirubin AST ALT Alkaline Phosphatase LD Total Troponin I Total Protein Albumin Urine Color Urine Appearance Urine pH Ur Specific Wilder Urine Protein Urine Glucose (UA) Urine Ketones Urine Blood Urine Nitrite Urine Bilirubin Urine Urobilinogen Ur Leukocyte Esterase Urine WBC (Auto) Urine RBC (Auto) Ur Epithelial Cells Urine Bacteria Hyaline Casts Urine Mucus 05/28/18 05/28/18 05/28/18 13:53 13:53 13:53 WBC RBC Hgb Hct MCV MCH MCHC RDW Plt Count MPV Absolute Neuts (auto) Neutrophils % Lymphocytes % Monocytes % Eosinophils % Basophils % Nucleated RBC % PT with INR INR PTT (Actin FS) VBG pH 7.40 POC VBG pCO2 39.6 POC VBG pO2 56.8 H Mixed VBG HCO3 23.8 Sodium 139 Potassium 3.7 Chloride 101 Carbon Dioxide 26 Anion Gap 12 BUN 53 H Creatinine 1.5 H Creat Clearance w eGFR 36.91 Random Glucose 130 H Lactic Acid Calcium 8.3 L Total Bilirubin 0.3 AST 26 ALT 19 Alkaline Phosphatase 79 LD Total 287 H Troponin I < 0.02 Total Protein 6.0 L Albumin 2.3 L Urine Color Urine Appearance Urine pH Ur Specific Wilder Urine Protein Urine Glucose (UA) Urine Ketones Urine Blood Urine Nitrite Urine Bilirubin Urine Urobilinogen Ur Leukocyte Esterase Urine WBC (Auto) Urine RBC (Auto) Ur Epithelial Cells Urine Bacteria Hyaline Casts Urine Mucus 05/28/18 05/28/18 05/28/18 14:23 16:53 18:54 WBC RBC Hgb Hct MCV MCH MCHC RDW Plt Count MPV Absolute Neuts (auto) Neutrophils % Lymphocytes % Monocytes % Eosinophils % Basophils % Nucleated RBC % PT with INR INR PTT (Actin FS) VBG pH POC VBG pCO2 POC VBG pO2 Mixed VBG HCO3 Sodium Potassium Chloride Carbon Dioxide Anion Gap BUN Creatinine Creat Clearance w eGFR Random Glucose Lactic Acid 4.4 H* Calcium Total Bilirubin AST ALT Alkaline Phosphatase LD Total Troponin I Total Protein Albumin Urine Color Naima Ltyellow Urine Appearance Turbid Slcloudy Urine pH 5.0 5.0 Ur Specific Wilder 1.020 1.010 Urine Protein 2+ H Negative Urine Glucose (UA) Negative Negative Urine Ketones Negative Negative Urine Blood Negative Negative Urine Nitrite Negative Negative Urine Bilirubin Negative Negative Urine Urobilinogen Negative Negative Ur Leukocyte Esterase Negative Negative Urine WBC (Auto) 19 Urine RBC (Auto) 4 Ur Epithelial Cells Many Urine Bacteria Rare Hyaline Casts 66 Urine Mucus Rare ASSESSMENT/PLAN: Pt is a 48 y/o F HIV/AIDS, laryngeal ca s/p tracheostomy, failure to thrive, PEG tube, Hep B, COPD, Asthma, positive C-diff (05/21) BIBA for SOB/increased mucus/fatigue for 7-10 days. She is admitted to ICU for acute hypoxic resp failure. #Resp failure, ? 2/2 PNA -increased O2 demand: per , at baseline, pt walks and does house chores with no need for O2. Now desatting to 80's off O2 -? 2/2 PNA. Pt had a PNA recently. Current CXR shows R infiltrate not present on prior CXR. Prior CXR with L PNA -Pt has been producing excessive sputum. In ED found frequently suctioning her own trach -sat resolves with supplemental O2 -LA 4.8 -> 4.4 -ICU admission #PNA ? HCAP -R infiltrate noted on CXR -on Vanc/Zosyn #SONAM -[employer] 1.5 -baseline 0.3 -on NS #C.diff -hx C. diff -stool studies pending -emperic PO Vanc #HIV -c/w Truvada, Etravirine, Isentress #PO Meds via PEG tube #FEN -NS -lytes wnl -NPO #PPx -HSQ #Dispo -ICU Yonatan Ohara MD PGY-2 IM Visit type - Emergency Visit Emergency Visit: Yes ED Registration Date: 05/28/18 Care time: The patient presented to the Emergency Department on the above date and was hospitalized for further evaluation of their emergent condition. - New Patient This patient is new to me today: Yes Date on this admission: 05/28/18 - Critical Care Critical Care patient: Yes Total Critical Care Time (in minutes): 45 Critical Care Statement: The care of this patient involved high complexity decision making to prevent further life threatening deterioration of the patient 's condition and/or to evaluate & treat vital organ system(s) failure or risk of failure.
[2018-05-28] MEDS ORDERED: PATIENT'S OWN MEDICATION (NON-FORMULARY) (Clonazepam [Klonopin] 1 MG) GT PRN (21:47)
[2018-05-28] MEDS ORDERED: ACETYLCYSTEINE 20% 200MG/ML 4 ML VIAL *FOR ORAL / INH USE ONLY NEB PRN (21:52)
[2018-05-28] MEDS ORDERED: clonazePAM 0.5 MG TABLET GT PRN (21:53)
[2018-05-28] MEDS ORDERED: VANCOMYCIN 1 GRAM (PRE-DOCKED) 1,000 MG/250 ML BAG IVPB ONE ×2 (22:00→23:30)
[2018-05-28] MEDS ORDERED: ETRAVIRINE 200 MG TABLET PO SCH (22:00)
[2018-05-28] MEDS ORDERED: PIPERACILLIN/TAZOBACTAM 3.375 GM VIAL IVPB ONE ×2 (22:00→23:33)
--- NOTE | 2018-05-28 22:00 | PN ---
Progress Note (short form) - Note Progress Note: Patient transferred to ICU because of fall in BP and lactic acidosis. pt already got 4L of fluid in er. CXr shows RLL consolidation. awake, alert, NECK: Trachea midline, full range of motion, supple. Chest; b/l aientry present, yellow sputum from t tube suction, no wheezing, decrease air entry at bases CVS s1s normal abd; soft, non tender, no guarding. Peripheries: no edema A/P 1) sepsis likely from pneumonia - IV fluid, keep map. 65 - Iv antibiotic Vancomycin and Zosyn - o2 to keep spo2> 90 - trend lactic acid - monitor vitals - monitor intake/ output - Chest PT - F/u ID consult - follow blood, sputum culture - duoneb neb - continue home symbicort 2) Laryngeal carcinoma - S/p trach and peg - Continue trach collar as needed 4) HIV/AIDS - Continue home medications 5) F/E/N: - Monitor electrolytes - IV fluid 6) Prophylaxis: - Heparin 5,000u sq bid
--- NOTE | 2018-05-28 22:25 | PN ---
Teaching Attending Note Name of Resident: Yonatan Ohara ATTENDING PHYSICIAN STATEMENT I saw and evaluated the patient. I reviewed the resident's note and discussed the case with the resident. I agree with the resident's findings and plan as documented. SUBJECTIVE: OBJECTIVE: ASSESSMENT AND PLAN: this is a 48 y/o female patient with hx of HIV on ART, Chronic respiratory failure s/p trache and PEG placement was recently d/c for cavitary pneumonia patient had a PICC and d/c of cefapime, she was doing well, then went to the dentist where she had a procedure done and was d/c om amoxicillin, the patient started to develop diarrhea after that and her respiratory status worsened plan: SIRS with sepsis pneumonia vs c dif start vancomycin 1g and cefapime consult ID obtain C. Dif PCR start the patient on vancomycin blood cultures pulmonary and Critical care consult admit the patient to ICU c/w ART medication place the patient on contact isolation ID consultation
[2018-05-28 22:28] LABS: PLATELET ESTIMATE ADEQUATE; TOXIC GRANULATION 1+
[2018-05-28] MEDS: SODIUM CHLORIDE 1,000 ML IV SCH (22:39)
[2018-05-28] MEDS: MUPIROCIN 2% TOPICAL OINTMENT FOR DECOLONIZATION NS SCH (22:39)
[2018-05-28] MEDS: HEPARIN NA (PORCINE) 5,000 UNITS/ML 1ML VIAL SQ SCH (22:40)
[2018-05-28] MEDS: ETRAVIRINE 100 MG TABLET PO SCH (22:40)
[2018-05-28] MEDS: GABAPENTIN 250 MG/5 ML ORAL SOLUTION, 470 ML BOTTLE PO SCH (22:40)
[2018-05-28] MEDS: RALTEGRAVIR POTASSIUM 400 MG TAB PO SCH (22:40)
[2018-05-28] MEDS: CHLORHEXIDINE GLUCONATE 4% CLEANSER FOR DECOLONIZATION TP SCH (22:40)
[2018-05-28] MEDS: BUDESONIDE/FORMETEROL FUMARATE 160/4.5 mcg INHALER IH SCH (22:41)
[2018-05-28] MEDS ORDERED: ONDANSETRON 4 MG/2 ML VIAL IVPUSH ONE (22:53)
[2018-05-28] MEDS ORDERED: DEXTROSE 5%-WATER - 50 ML IVPB ONE (23:34)
[2018-05-29] MEDS: VANCOMYCIN 250 MG/5 ML ORAL SOLUTION PO SCH ×4 (00:16→17:34)
[2018-05-29] MEDS: PIPERACILLIN/TAZOB 3.375 GM 3.375 GM in DEXTROSE 5%-WATER - 50 ML IVPB SCH (02:00)
[2018-05-29 06:19] LABS: BASO % 0.1 % (0-2.0); EOS % 1.5 % (0-4.5); HEMATOCRIT 35.5 % (32.4-45.2); HEMOGLOBIN 11.3 GM/dL (10.7-15.3); LYMPH % 13.8 % (8-40); MCH 30.9 pg (25.7-33.7); MCHC 31.8 g/dl (32.0-36.0); MEAN CELL VOLUME 97.1 fl (80-96); MEAN PLT VOLUME 8.7 fl (7.5-11.1); MONO % 0.8 % (3.8-10.2); NEUT % 83.8 % (42.8-82.8); PLATELET COUNT 190 K/MM3 (134-434); RBC 3.65 M/mm3 (3.60-5.2); RDW 15.3 % (11.6-15.6)
[2018-05-29 06:37] LABS: WHITE BLOOD COUNT 1.9 K/mm3 (4.0-10.0)
[2018-05-29 06:56] LABS: ALBUMIN 2.2 g/dl (3.4-5.0); ALK PHOS 97 U/L (45-117); ANION GAP 13 MMOL/L (8-16); BILIRUBIN,TOTAL 0.6 mg/dL (0.2-1); BLOOD UREA NITROGEN 38 mg/dL (7-18); CALCIUM 7.8 mg/dL (8.5-10.1); CHLORIDE 113 mmol/L (98-107); CO2 22 mmol/L (21-32); CREATININE 0.8 mg/dL (0.55-1.3); GLUCOSE,RANDOM 66 mg/dL (74-106); MAGNESIUM 2.3 mg/dL (1.8-2.4); SGOT/AST 39 U/L (15-37); SGPT/ALT 19 U/L (13-61); SODIUM 148 mmol/L (136-145); TOT PROT 5.9 g/dl (6.4-8.2)
[2018-05-29] MEDS ORDERED: PATIENT'S OWN MEDICATION (NON-FORMULARY) (Sertraline Hcl [Zoloft] 100 MG) GT SCH (07:00)
[2018-05-29 07:23] LABS: POTASSIUM 2.7 mmol/L (3.5-5.1)
[2018-05-29] MEDS ORDERED: POTASSIUM CHLORIDE TABS 20 MEQ TABLET.ER (FP) PO ONE ×2 (07:25→14:26)
[2018-05-29] MEDS ORDERED: LORazepam 2 MG/ML SDV VIAL IVPUSH ONE (07:37)
[2018-05-29] MEDS ORDERED: LORazepam 2 MG/ML SDV VIAL ONE (07:38)
[2018-05-29] MEDS: KCL 10 MEQ IVPB 10 MEQ/100 ML INFUS.BAG IVPB SCH ×3 (07:58→11:32)
--- NOTE | 2018-05-29 08:04 | PN ---
Progress Note (short form) - Note Progress Note: Patient is a 48 y/o F HIV/AIDS, laryngeal ca s/p tracheostomy, failure to thrive , PEG tube, Hep B, COPD, Asthma, positive C-diff (05/21), presented with SOB. She has been experiencing sob, fatigue, and increased mucous. Presented with temp. of 103 at home. Vital Signs Temperature 99.4 F 05/29/18 06:00 Pulse Rate 114 H 05/29/18 06:00 Respiratory Rate 28 H 05/29/18 06:00 Blood Pressure 128/70 05/29/18 06:00 O2 Sat by Pulse Oximetry (%) 98 05/28/18 22:21 Gen: Frail appearing, uncomfortable, having difficulty breathing HEENT: temporal wasting, atraumatic, dry membranes Neck: supple, no jvd Pulm: Decreased air entery BL , with severe respiratory failure, on a trach. color , getting ready for intubation. Cardio: S1S2 positive, tachycardic. Abd: nondistended, soft, nontender, BS positive Ext: no edema, 2+ pulses Neuro: restless, does not follow any commands. CBCD WBC 1.9 K/mm3 (4.0-10.0) L* 05/29/18 05:30 RBC 3.65 M/mm3 (3.60-5.2) 05/29/18 05:30 Hgb 11.3 GM/dL (10.7-15.3) 05/29/18 05:30 Hct 35.5 % (32.4-45.2) 05/29/18 05:30 MCV 97.1 fl (80-96) H 05/29/18 05:30 MCHC 31.8 g/dl (32.0-36.0) L 05/29/18 05:30 RDW 15.3 % (11.6-15.6) 05/29/18 05:30 Plt Count 190 K/MM3 (134-434) D 05/29/18 05:30 MPV 8.7 fl (7.5-11.1) 05/29/18 05:30 CMP Sodium 148 mmol/L (136-145) H 05/29/18 05:30 Potassium 2.7 mmol/L (3.5-5.1) L* 05/29/18 05:30 Chloride 113 mmol/L (98-107) H 05/29/18 05:30 Carbon Dioxide 22 mmol/L (21-32) 05/29/18 05:30 Anion Gap 13 MMOL/L (8-16) 05/29/18 05:30 BUN 38 mg/dL (7-18) H 05/29/18 05:30 Creatinine 0.8 mg/dL (0.55-1.3) 05/29/18 05:30 Creat Clearance w eGFR > 60 (>60) 05/29/18 05:30 Random Glucose 66 mg/dL (74-106) L 05/29/18 05:30 Calcium 7.8 mg/dL (8.5-10.1) L 05/29/18 05:30 Total Bilirubin 0.6 mg/dL (0.2-1) 05/29/18 05:30 AST 39 U/L (15-37) H 05/29/18 05:30 ALT 19 U/L (13-61) 05/29/18 05:30 Alkaline Phosphatase 97 U/L (45-117) 05/29/18 05:30 Total Protein 5.9 g/dl (6.4-8.2) L 05/29/18 05:30 Albumin 2.2 g/dl (3.4-5.0) L 05/29/18 05:30 CARDIAC ENZYMES Troponin I < 0.02 ng/ml (0.00-0.05) 05/28/18 13:53 Current Medications Generic Name Dose Route Start Last Admin Trade Name Freq PRN Reason Stop Dose Admin Acetaminophen 650 mg 05/28/18 21:35 Tylenol - PO Q6H PRN FEVER Acetylcysteine 200 mg 05/28/18 21:52 Mucomyst 20 Oral / Inh Use Only* NEB Q4H PRN COUGH Albuterol Sulfate 1 amp 05/28/18 21:35 Ventolin 0.083% Nebulizer Soln - NEB Q4H PRN SHORT OF BREATH/WHEEZING Albuterol/Ipratropium 1 amp 05/29/18 08:00 Duoneb - NEB RQID RAZ Budesonide/Formoterol Fumarate 2 puff 05/28/18 22:00 05/28/18 22:41 Symbicort 160/4.5mcg - IH 2 puff BID RAZ Administration Chlorhexidine Gluconate 1 applic 05/28/18 22:00 05/28/18 22:40 Hibiclens For Decolonization - TP 1 applic HS RAZ Administration Clonazepam 1 mg 05/28/18 21:53 Klonopin - GT Q8H PRN ANXIETY Emtricitabine/Tenofovir 1 tab 05/29/18 10:00 Truvada PO DAILY RAZ Etravirine 100 mg 05/28/18 22:00 05/28/18 22:40 Intelence - PO 100 mg BID RAZ Administration Gabapentin 250 mg 05/28/18 22:00 05/28/18 22:40 Neurontin Oral Liquid - PO 250 mg BID RAZ Administration Heparin Sodium (Porcine) 5,000 unit 05/28/18 22:00 05/28/18 22:40 Heparin - SQ 5,000 unit BID RAZ Administration Sodium Chloride 1,000 mls @ 75 mls/hr 05/28/18 18:15 05/28/18 18:20 Normal Saline - IV 75 mls/hr ASDIR RAZ Administration Piperacillin Sod/Tazobactam 50 mls @ 100 mls/hr 05/28/18 18:00 Sod 3.375 gm/ Dextrose IVPB Q8H-IV RAZ Protocol Sodium Chloride 1,000 mls @ 125 mls/hr 05/28/18 21:45 05/28/18 22:39 Normal Saline - IV 125 mls/hr ASDIR RAZ Administration Piperacillin Sod/Tazobactam 50 mls @ 100 mls/hr 05/29/18 10:00 Sod 3.375 gm/ Dextrose IVPB 05/29/18 10:29 ONCE ONE Protocol Potassium Chloride 10 meq in 100 mls @ 100 mls/hr 05/29/18 07:30 05/29/18 07: 58 Potassium Chloride 10 Meq Premix Ivpb - IVPB 05/29/18 10:29 100 mls/hr Q60M RAZ Administration Mirtazapine 15 mg 05/29/18 10:00 Remeron - GT DAILY RAZ Mupirocin 1 applic 05/28/18 22:00 05/28/18 22:39 Bactroban Ointment (For Decolonization) - NS 06/02/18 21:59 1 applic BID RAZ Administration Raltegravir 400 mg 05/28/18 22:00 05/28/18 22:40 Isentress - PO 400 mg BID RAZ Administration Sertraline HCl 50 mg 05/29/18 07:00 Zoloft - GT DAILY@0700 RAZ Vancomycin HCl 125 mg 05/29/18 00:00 05/29/18 05:59 Vancomycin Oral Solution PO 125 mg Q6HPO RAZ Administration Home Medications Medication Instructions Recorded Zolpidem Tartrate [Ambien] 5 mg PO HS #30 tablet MDD 1 03/04/18 Acetaminophen [Tylenol .Regular 650 mg PO Q6H PRN tablet 04/26/18 Strength -] Acetylcysteine Po/INH 20% 200 mg NEB Q4HWA PRN #1 vial 05/06/18 [Mucomyst 20 Oral / INH Use Only*] Albuterol 0.083% Nebulizer Keyonna 1 neb NEB Q4H PRN #1 box MDD 6 05/06/18 [Ventolin 0.083% Nebulizer Soln -] Emtricitabine/Tenofovir [Truvada -] 1 tab PEG DAILY #30 tablet 05/06/18 Etravirine [Intelence -] 100 mg PEG BID #60 tablet 05/06/18 Gabapentin Liquid [Neurontin Oral 250 mg PO BID #1 bottle 05/06/18 Liquid -] Raltegravir [Isentress] 400 mg PEG BID #60 tab 05/06/18 Amoxicillin - [Amoxicillin 500mg 500 mg PO Q8H 05/28/18 Capsule -] Clonazepam [Klonopin] 1 mg GT TID PRN MDD 3 05/28/18 Mirtazapine [Remeron -] 15 mg GT DAILY 05/28/18 Prednisone 15 mg GT DAILY 05/28/18 Sertraline HCl [Zoloft] 100 mg GT AM 05/28/18 Laboratory Tests 05/28/18 05/28/18 05/29/18 13:53 16:53 03:00 WBC 5.9 Lactic Acid 4.4 H* 5.5 H* 05/29/18 05/29/18 05:30 05:30 WBC 1.9 L* Lactic Acid 6.4 H* Microbiology 05/28/18 14:23 Urine - Urine Clean Catch Urine Culture - Final Contaminated: Please Repeat 05/28/18 13:53 Blood - Peripheral Venous Blood Culture - Preliminary Lactose Fermenting Neg Bacilli 05/28/18 13:53 Blood - Peripheral Venous Blood Culture - Preliminary Lactose Fermenting Neg Bacilli 05/28/18 14:02 Nasopharyngeal Swab Influenza Types A,B Antigen - Final 05/28/18 14:02 Nasopharyngeal Swab - Final ASSESSMENT/PLAN: Pt is a 48 y/o F HIV/AIDS, laryngeal ca s/p tracheostomy, failure to thrive, PEG tube, Hep B, COPD, Asthma, positive C-diff (05/21) for SOB/increased mucus/ fatigue for 7-10 days. She is admitted to ICU for acute hypoxic resp failure. #Acute Respiratory failure due to PNA On IV Vancomycin and Zosyn , ID consult appreciate. # severe Sepsis with acute hypoxemic respiratory failure on a trach. color , discussed with ICU team , patient will be intubated. #PNA on IV Vanc/Zosyn ID on the case #SONAM with [employer] 1.5( baseline 0.3) on iv NS # Hypokalemia will replete due to severe diarrhea. #Hx C. diff, stool studies are pending, on PO Vanc #HIV with Truvada, Etravirine, Isentress #Peg tube , npo for now #PPx :HSQ in ICU critical care of 35min discussed with ICU attending discussed with ID Visit type - Emergency Visit Emergency Visit: Yes ED Registration Date: 05/28/18 Care time: The patient presented to the Emergency Department on the above date and was hospitalized for further evaluation of their emergent condition. - New Patient This patient is new to me today: Yes Date on this admission: 05/29/18 - Critical Care Critical Care patient: Yes Total Critical Care Time (in minutes): 35 Critical Care Statement: The care of this patient involved high complexity decision making to prevent further life threatening deterioration of the patient 's condition and/or to evaluate & treat vital organ system(s) failure or risk of failure.
[2018-05-29] MEDS: ALBUTEROL SO4 2.5/IPRATROPIUM 0.5 INH SOL 3 ML VIAL.NEB. NEB SCH ×4 (08:27→20:50)
[2018-05-29] MEDS: HEPARIN NA (PORCINE) 5,000 UNITS/ML 1ML VIAL SQ SCH ×2 (09:16→22:24)
[2018-05-29] MEDS ORDERED: DEXTROSE 5%-WATER - 50 ML IVPB ONE (09:18)
[2018-05-29] MEDS ORDERED: PIPERACILLIN/TAZOBACTAM 3.375 GM VIAL IVPB ONE (09:18)
[2018-05-29] MEDS: EMTRICITABINE 200MG/TENOFOVIR 300MG PO SCH (09:54)
[2018-05-29] MEDS: RALTEGRAVIR POTASSIUM 400 MG TAB PO SCH ×2 (09:55→22:26)
[2018-05-29] MEDS: MIRTAZAPINE 15 MG TABLET (FP) GT SCH (09:55)
[2018-05-29] MEDS: BUDESONIDE/FORMETEROL FUMARATE 160/4.5 mcg INHALER IH SCH ×2 (09:56→22:25)
[2018-05-29] MEDS: ETRAVIRINE 100 MG TABLET PO SCH ×2 (09:56→22:26)
[2018-05-29] MEDS: GABAPENTIN 250 MG/5 ML ORAL SOLUTION, 470 ML BOTTLE PO SCH ×2 (09:57→22:39)
[2018-05-29] MEDS ORDERED: PIPERACILLIN/TAZOB 3.375 GM 3.375 GM in DEXTROSE 5%-WATER - 50 ML IVPB ONE (10:00)
[2018-05-29] MEDS: SERTRALINE HCL 50 MG TABLET (FP) GT SCH (10:24)
[2018-05-29] MEDS: MUPIROCIN 2% TOPICAL OINTMENT FOR DECOLONIZATION NS SCH ×2 (10:25→22:24)
[2018-05-29] MEDS ORDERED: PROPOFOL 1,000,000 MCG/100 ML VIAL ONE (10:36)
[2018-05-29] MEDS: SODIUM CHLORIDE 1,000 ML IV SCH (11:00)
[2018-05-29] MEDS: PROPOFOL 1,000,000 MCG/100 ML VIAL IVPB SCH (11:10)
[2018-05-29 11:20] LABS: ANISOCYTOSIS 1+; MACROCYTOSIS 0; OVALOCYTE 1+; PLATELET ESTIMATE NORMAL
[2018-05-29] MEDS ORDERED: fentaNYL CITRATE 250 MCG/5 ML VIAL ONE (11:33)
--- NOTE | 2018-05-29 11:33 | PN ---
Progress Note (short form) - Note Progress Note: Gram Negative sepsis/ Septic shock Respiratory failure RLL pneumonia Leukopenia ANC 1.57 Lactic acidosis AIDS Pending identification of blood isolate empiric meropenem + vancomycin Monitor WBC Continue ART Prognosis poor
[2018-05-29] MEDS ORDERED: VANCOMYCIN 1,000 MG in DEXTROSE 5%-WATER - 250 ML IVPB SCH (11:45)
--- NOTE | 2018-05-29 12:09 | CON.CARD ---
Consult Consult Specialty:: cardiology Reason for Consultation:: sepsis; hx CHF, pericardial effusion - History of Present Illness Chief Complaint: Pt presently has eyes open, but does not respond to verbal request; little reaction to physical examination History of Present Illness: Pt is a 48yo f with PMH of HIV/AIDS, laryngeal ca s/p tracheostomy, failure to thrive, PEG tube, HepB, COPD/Asthma (s/p thoracocentesis 04/2018); small amount pericardia effusion noted on two ECHOs , BIBA for vomiting, diarrhea, increased mucus production and cough and generalized weakness. Per , pt had a tooth infection 4 days ago on Thursday, went to the dentist, was given amoxicillin and "everything went downhill". Pt started becoming lethargic, vomiting, diarrhea, cough, SOB, increased mucus production, fevers. says fevers were on and off and would get as high as 104. Pt was recently d/c from the hospital for pneumonia on 04/26. She was d/c with PICC line (cefepime). PICC line was removed 1.5 weeks ago. She takes her medications daily (crushed through PEG). says pt CD4 counts are "fine" and viral load is undetectable. Pt complains of generalized abdominal pain as well. - History Source History Provided By: Medical Record Limitations to Obtaining History: Unresponsive - Past Medical History Cardio/Vascular: Yes: CHF Pulmonary: Yes: Asthma, Cancer (laryngeal), COPD, Other (vocal cord mass) Hepatobiliary: Yes: Hepatitis B ...LMP: 05/14/12 Infectious Disease: Yes: AIDS, HIV ENT: Yes: Other (trach in place) - Past Surgical History Additional Surgical History: tracheostomy - Alcohol/Substance Use Hx Alcohol Use: No History of Substance Use: reports: None - Smoking History Smoking history: Former smoker Have you smoked in the past 12 months: Yes Aproximately how many cigarettes per day: 20 If you are a former smoker, when did you quit?: 2016 - Social History Usual Living Arrangement: With Spouse ADL: Independent History of Recent Travel: No Home Medications - Allergies Allergies/Adverse Reactions: Allergies Allergy/AdvReac Type Severity Reaction Status Date / Time sulfamethoxazole Allergy Unknown Rash Verified 05/28/18 13:36 [From Bactrim] trimethoprim [From Bactrim] Allergy Unknown Rash Verified 05/28/18 13:36 abacavir sulfate Allergy Rash Verified 05/28/18 13:36 [From Ziagen] atazanavir sulfate Allergy Rash Verified 05/28/18 13:36 [From Reyataz] azithromycin Allergy Rash Verified 05/28/18 13:36 dapsone Allergy Rash Verified 05/28/18 13:36 - Home Medications Home Medications: Ambulatory Orders Zolpidem Tartrate [Ambien] 5 mg PO HS #30 tablet MDD 1 03/04/18 Acetaminophen [Tylenol .Regular Strength -] 650 mg PO Q6H PRN tablet 04/26/18 Acetylcysteine Po/INH 20% [Mucomyst 20 Oral / INH Use Only*] 200 mg NEB Q4HWA PRN #1 vial 05/06/18 Albuterol 0.083% Nebulizer Keyonna [Ventolin 0.083% Nebulizer Soln -] 1 neb NEB Q4H PRN #1 box MDD 6 05/06/18 Emtricitabine/Tenofovir [Truvada -] 1 tab PEG DAILY #30 tablet 05/06/18 Etravirine [Intelence -] 100 mg PEG BID #60 tablet 05/06/18 Gabapentin Liquid [Neurontin Oral Liquid -] 250 mg PO BID #1 bottle 05/06/18 Raltegravir [Isentress] 400 mg PEG BID #60 tab 05/06/18 Amoxicillin - [Amoxicillin 500mg Capsule -] 500 mg PO Q8H 05/28/18 Clonazepam [Klonopin] 1 mg GT TID PRN MDD 3 05/28/18 Mirtazapine [Remeron -] 15 mg GT DAILY 05/28/18 Prednisone 15 mg GT DAILY 05/28/18 Sertraline HCl [Zoloft] 100 mg GT AM 05/28/18 Review of Systems Unable to obtain ROS, reason: pt is unresponive - Risk Factors Known Risk Factors: Yes: Other (HIV: COPD;) Vital Signs: Vital Signs Temperature 99 F 05/29/18 10:00 Pulse Rate 142 H 05/29/18 11:39 Respiratory Rate 26 H 05/29/18 11:39 Blood Pressure 121/89 05/29/18 11:39 O2 Sat by Pulse Oximetry (%) 98 05/28/18 22:21 Constitutional: Yes: Cachectic Eyes: Yes: WNL HENT: Yes: Other (tracheostomy) Neck: Yes: Decreased ROM Respiratory: Yes: Diminished Gastrointestinal: Yes: Soft Renal/: Yes: Oliguria Cardiovascular: Yes: Tachycardia JVD: No Carotid Bruit: No PMI: Non-Displaced Heart Sounds: Yes: S1, S2 Musculoskeletal: Yes: Muscle Weakness Extremities: Yes: Cool Edema: No Peripheral Pulses WNL: No Peripheral Pulses: 1+ Left Doralis Pedis, 1+ Right Dorsalis Pedis Neurological: Yes: Weakness Psychiatric: Yes: Other - Other Data Labs, Other Data: CBC, BMP 05/29/18 05:30 05/29/18 05:30 INR, PTT INR 1.17 (0.83-1.09) H 05/28/18 13:53 Troponin, BNP 05/28/18 13:53 Troponin I < 0.02 Troponin, BNP 05/28/18 13:53 Troponin I < 0.02 Abnormal Lab Results 05/28/18 05/28/18 05/28/18 13:52 13:53 13:53 WBC RBC 3.31 L Hgb 10.3 L Hct 31.9 L MCV 96.3 H MCHC Neutrophils % 93.1 H Neutrophils % (Manual) 38.0 L Lymphocytes % 4.9 L D Lymphocytes % (Manual) 6.0 L D Monocytes % 0.7 L D Monocytes % (Manual) 16 H D Basophils % (Manual) Myelocytes % (Man) 3 H D Nucleated RBC % Metamyelocytes 3 H D PT with INR 13.80 H INR 1.17 H POC VBG pO2 Sodium Potassium Chloride BUN Creatinine Random Glucose Lactic Acid 4.8 H* Calcium AST LD Total Total Protein Albumin Urine Protein 05/28/18 05/28/18 05/28/18 13:53 13:53 14:23 WBC RBC Hgb Hct MCV MCHC Neutrophils % Neutrophils % (Manual) Lymphocytes % Lymphocytes % (Manual) Monocytes % Monocytes % (Manual) Basophils % (Manual) Myelocytes % (Man) Nucleated RBC % Metamyelocytes PT with INR INR POC VBG pO2 56.8 H Sodium Potassium Chloride BUN 53 H Creatinine 1.5 H Random Glucose 130 H Lactic Acid Calcium 8.3 L AST LD Total 287 H Total Protein 6.0 L Albumin 2.3 L Urine Protein 2+ H 05/28/18 05/29/18 05/29/18 16:53 03:00 05:30 WBC 1.9 L* RBC Hgb Hct MCV 97.1 H MCHC 31.8 L Neutrophils % 83.8 H Neutrophils % (Manual) 36.8 L Lymphocytes % Lymphocytes % (Manual) Monocytes % 0.8 L Monocytes % (Manual) Basophils % (Manual) 14.7 H* D Myelocytes % (Man) 5 H D Nucleated RBC % 1 H Metamyelocytes 7 H D PT with INR INR POC VBG pO2 Sodium Potassium Chloride BUN Creatinine Random Glucose Lactic Acid 4.4 H* 5.5 H* Calcium AST LD Total Total Protein Albumin Urine Protein 05/29/18 05/29/18 05:30 05:30 WBC RBC Hgb Hct MCV MCHC Neutrophils % Neutrophils % (Manual) Lymphocytes % Lymphocytes % (Manual) Monocytes % Monocytes % (Manual) Basophils % (Manual) Myelocytes % (Man) Nucleated RBC % Metamyelocytes PT with INR INR POC VBG pO2 Sodium 148 H Potassium 2.7 L* Chloride 113 H BUN 38 H Creatinine Random Glucose 66 L Lactic Acid 6.4 H* Calcium 7.8 L AST 39 H LD Total Total Protein 5.9 L Albumin 2.2 L Urine Protein Echo: Report Reviewed Ejection Fraction %: LVEF > or = 40 % Imaging - Results Chest X-ray: Image Reviewed (new right basal infiltrate) Ultrasound: Report Reviewed (04/08/18 ECHO: normal LVEF; normal RVEF; normal chamber sizes; mild TR; small pericardial effusion, without indications of cardiac tamponade. 04/12/18 ECHO: limited to sudy pericardial effusion, which was unchanged from 04/08/18) Problem List - Problems (1) Leukopenia Assessment/Plan: initially normal WBC-->leukopenia. On antibitics. F?u with ID Code(s): D72.819 - DECREASED WHITE BLOOD CELL COUNT, UNSPECIFIED (2) Pneumonia Assessment/Plan: antibiotics per ID. Code(s): J18.9 - PNEUMONIA, UNSPECIFIED ORGANISM Qualifiers: Pneumonia type: due to unspecified organism Laterality: right Lung location: lower lobe of lung Qualified Code(s): J18.1 - Lobar pneumonia, unspecified organism (3) Acute on chronic respiratory failure with hypoxia and hypercapnia Assessment/Plan: bronchodilators, steroids, antibiotics per care coordination manager. Code(s): J96.21 - ACUTE AND CHRONIC RESPIRATORY FAILURE WITH HYPOXIA; J96.22 - ACUTE AND CHRONIC RESPIRATORY FAILURE WITH HYPERCAPNIA (4) C. difficile diarrhea Assessment/Plan: hx C.difficile; f/u cutures. Code(s): A04.72 - ENTEROCOLITIS D/T CLOSTRIDIUM DIFFICILE, NOT SPCF RECUR (5) COPD (chronic obstructive pulmonary disease) Code(s): J44.9 - CHRONIC OBSTRUCTIVE PULMONARY DISEASE, UNSPECIFIED (6) Hyperthyroidism Assessment/Plan: THS WNL. Code(s): E05.90 - THYROTOXICOSIS, UNSP WITHOUT THYROTOXIC CRISIS OR STORM (7) Pericardial effusion Assessment/Plan: F/u ECHO (small amount pericardial effusion 04/08/2018 was unchanged 04/12/2018) . Code(s): I31.3 - PERICARDIAL EFFUSION (NONINFLAMMATORY) (8) AIDS Code(s): B20 - HUMAN IMMUNODEFICIENCY VIRUS [HIV] DISEASE (9) Failure to thrive in adult Code(s): R62.7 - ADULT FAILURE TO THRIVE (10) Psychosocial stressors Code(s): Z65.8 - OTH PROBLEMS RELATED TO PSYCHOSOCIAL CIRCUMSTANCES (11) Tobacco dependence Code(s): F17.200 - NICOTINE DEPENDENCE, UNSPECIFIED, UNCOMPLICATED (12) Tracheostomy dependence Code(s): Z93.0 - TRACHEOSTOMY STATUS (13) Vitamin D deficiency Code(s): E55.9 - VITAMIN D DEFICIENCY, UNSPECIFIED (14) Tachycardia Assessment/Plan: sinus tachycardia. F/u HR and BP post-fluids (given several liters IVF this morning). ECHO 04/08/2018: normal LVEF; small amount pericardial effusion, without evidence of tamponade. Code(s): R00.0 - TACHYCARDIA, UNSPECIFIED (15) Septic shock Assessment/Plan: IV fluids. Antibiotics per iD. Replete electrolytes: Keep K 4-4.5, Mg 2-2.4, PO4 2.5-4.9. Serial BP and HR; failrure to improve BP will neccessitate vasopressors. Code(s): A41.9 - SEPSIS, UNSPECIFIED ORGANISM; R65.21 - SEVERE SEPSIS WITH SEPTIC SHOCK (16) Diastolic CHF Code(s): I50.30 - UNSPECIFIED DIASTOLIC (CONGESTIVE) HEART FAILURE Assessment/Plan CCU time spent reviewing chart, evaluating pt, formulating plan: 75 minutes.
--- NOTE | 2018-05-29 12:11 | PN ---
Teaching Attending Note Name of Resident: Mainor Artis ATTENDING PHYSICIAN STATEMENT I saw and evaluated the patient. I reviewed the resident's note and discussed the case with the resident. I agree with the resident's findings and plan as documented. SUBJECTIVE: Pt seen and examined in the ICU. Obtunded this AM, trach changed to 8.0 cuffed Portex and placed on mechanical ventilation. Blood cultures growing gram negative bacilli. OBJECTIVE: Vital Signs Period Temp Pulse Resp BP Sys/Lisa Pulse Ox Last 24 Hr 98.8 F-100.7 F 100-147 17-32 89-128/54-89 83-100 Intake & Output 05/26/18 05/27/18 05/28/18 05/29/18 23:59 23:59 23:59 23:59 Intake Total 3100 1550 Output Total 660 Balance 2440 1550 Weight 43.545 kg 43.545 kg Gen: vented, lethargic Heart: tachycardic, regular Lung: bilateral rhonchi Abd: soft, nontender Ext: no edema CBC, BMP 05/29/18 05:30 05/29/18 05:30 Active Medications Acetaminophen (Tylenol -) 650 mg PO Q6H PRN PRN Reason: FEVER Acetylcysteine (Mucomyst 20 Oral / Inh Use Only*) 200 mg NEB Q4H PRN PRN Reason: COUGH Albuterol Sulfate (Ventolin 0.083% Nebulizer Soln -) 1 amp NEB Q4H PRN PRN Reason: SHORT OF BREATH/WHEEZING Albuterol/Ipratropium (Duoneb -) 1 amp NEB RQID [facility] Last Admin: 05/29/18 11:54 Dose: 1 amp Budesonide/Formoterol Fumarate (Symbicort 160/4.5mcg -) 2 puff IH BID [facility] Last Admin: 05/29/18 09:56 Dose: Not Given Chlorhexidine Gluconate (Hibiclens For Decolonization -) 1 applic TP HS [facility] Last Admin: 05/28/18 22:40 Dose: 1 applic Clonazepam (Klonopin -) 1 mg GT Q8H PRN PRN Reason: ANXIETY Last Admin: 05/29/18 09:54 Dose: 1 mg Emtricitabine/Tenofovir (Truvada) 1 tab PO DAILY [facility] Last Admin: 05/29/18 09:54 Dose: 1 tab Etravirine (Intelence -) 100 mg PO BID [facility] Last Admin: 05/29/18 09:56 Dose: 100 mg Gabapentin (Neurontin Oral Liquid -) 250 mg PO BID [facility] Last Admin: 05/29/18 09:57 Dose: 250 mg Heparin Sodium (Porcine) (Heparin -) 5,000 unit SQ BID [facility] Last Admin: 05/29/18 09:16 Dose: 5,000 unit Sodium Chloride (Normal Saline -) 1,000 mls @ 75 mls/hr IV ASDIR [facility] Last Admin: 05/28/18 18:20 Dose: 75 mls/hr Sodium Chloride (Normal Saline -) 1,000 mls @ 125 mls/hr IV ASDIR RAZ Last Admin: 05/28/18 22:39 Dose: 125 mls/hr Fentanyl 500 mcg/ Dextrose 100 mls @ 10 mls/hr IVPB TITR [facility]; Protocol Propofol (Diprivan -) 1,000,000 mcg in 100 mls @ 1.306 mls/hr IVPB TITR [facility]; Protocol Meropenem 1 gm/ Dextrose 100 mls @ 200 mls/hr IVPB Q8H-IV [facility]Z Vancomycin HCl 1,000 mg/ (Dextrose) 250 mls @ 166.667 mls/hr IVPB Q12H [facility]; Protocol Mirtazapine (Remeron -) 15 mg GT DAILY [facility] Last Admin: 05/29/18 09:55 Dose: 15 mg Mupirocin (Bactroban Ointment (For Decolonization) -) 1 applic NS BID [facility] Stop: 06/02/18 21:59 Last Admin: 05/29/18 10:25 Dose: 1 applic Raltegravir (Isentress -) 400 mg PO BID [facility] Last Admin: 05/29/18 09:55 Dose: 400 mg Sertraline HCl (Zoloft -) 50 mg GT DAILY@0700 [facility] Last Admin: 05/29/18 10:24 Dose: 50 mg Vancomycin HCl (Vancomycin Oral Solution) 125 mg PO Q6HPO [facility] Last Admin: 05/29/18 05:59 Dose: 125 mg ASSESSMENT AND PLAN: Acute Hypoxic Respiratory Failure Pneumonia ARDS r/o C Diff Gram Negative Bacteremia Severe Sepsis Leukopenia Acute Kidney Injury Lactic Acidosis HIV/AIDS COPD h/o Laryngeal Ca s/p tracheostomy - continue antibiotics per ID - f/u cultures - send stool for C diff - IVF - monitor urine output, creatinine - trend lactate - continue ART - low tidal volume ventilation 6cc/kg/IBW - keep Pplat <30 - FiO2, PEEP to keep SpO2 >90% - sedate for vent synchrony - DVT/GI prophylaxis - continue ICU monitoring - prognosis guarded critical care time spent in reviewing chart, evaluating patient and formulating plan 35 min
--- NOTE | 2018-05-29 12:17 | CONS ---
INFECTIOUS DISEASE CONSULTATION DATE OF CONSULTATION: DATE OF DICTATION: 05/29/2018 The patient is a 48-year-old female who is evaluated for septic shock. She was admitted to the hospital on May 28, 2018, with a 4-to-5-day history of generalized weakness, nausea, vomiting, diarrhea, cough, fever, and chest pain. According to the notes and patient's significant other, she had developed a tooth infection at home and had seen a dentist on May 24. She was prescribed amoxicillin. According to the significant other, her clinical course deteriorated from that point. She developed profound weakness with inability to ambulate, nausea, vomiting, non-bloody diarrhea, cough, pleuritic-type chest pain, and fever. She was brought to the emergency room where her temperature was 100.4. She was noted to be tachycardic and hypoxemic. Her O2 saturations were low. Lactic acid was elevated. Chest x-ray showed a new right lower lobe infiltrate. She was empirically treated with vancomycin and Zosyn. Patient was transferred to the intensive care unit where she was placed on a respirator. She continued to have hypoxemia. Blood cultures were positive for a lactose wait staff. The patient had a recent prolonged hospitalization at [facility]. She was hospitalized from March 28 through April 26. At that time, she was treated for pneumonia. Blood cultures were positive for klebsiella. She developed worsening infiltrate on antibiotic therapy to the point where she developed a cavitary lesion. She was ultimately discharged home to complete a course of cefepime via a PICC line. Her significant other reports that the PICC line was removed after the antibiotics were completed approximately 1 week ago. PAST MEDICAL HISTORY: As above. Also includes laryngeal cancer status post radiation and chemotherapy; acquired immunodeficiency syndrome, most recent viral load undetectable and T-cell count 311; history of COPD; hepatitis B. PAST SURGICAL HISTORY: Status post tracheostomy and feeding gastrostomy. ALLERGIES: SULFA, ZIAGEN, REYATAZ, ZITHROMAX, DAPSONE. She reports rash with these agents. MEDICATIONS: Include Tylenol, Truvada, Intelence, Isentress, amoxicillin, Klonopin, Remeron, prednisone, Zoloft. SOCIAL HISTORY: Lives in home in the community with significant other. Former smoker. SYSTEMS REVIEW: Neurologic: No loss of consciousness, seizure activity, focal weakness. Cardiac: Negative chest pain or palpitations. Respiratory: As per HPI. Gastrointestinal: Status post feeding gastrostomy. Genitourinary: Negative for urinary tract infection. LABORATORY DATA: White count 1.9; neutrophils 83, lymphocytes 13, absolute neutrophil count 1.57; hematocrit 35.5; platelet count 190. BUN 38, creatinine 0.8. Lactic acid 6.4. Urinalysis negative. Chest x-ray shows right lower lobe infiltrate. PHYSICAL EXAMINATION: General: She is sedated on the ventilator. She is cachectic, tachypneic. Vital Signs: Temperature 99, T-max 100.7; blood pressure 123/88; pulse 147, regular; respirations 26 per minute. HEENT: Sclerae are anicteric. Temporal wasting. Neck: Tracheostomy site clear. Heart: Sounds tachycardic. S1, S2. Lungs: Air entry bilaterally. Abdomen: Soft. No tenderness elicited. Extremities: Negative for edema. IMPRESSION: 1. Gram-negative sepsis/septic shock. 2. Respiratory failure. 3. Right lower lobe pneumonia. 4. Leukopenia. 5. Lactic acidosis. 6. Acquired immunodeficiency syndrome. Await identification of blood isolate. Empiric antibiotic coverage with meropenem plus vancomycin. Would cover for the possibility of ESBL in light of recent prolonged hospitalization and IV antibiotic therapy. Continue antiretroviral therapy. Prognosis is guarded. Thank you for the kind referral. GARRETT JULIAN M.D. [id number]
[2018-05-29] MEDS: FENTANYL INJECTION 500 MCG in DEXTROSE 5%-WATER - 90 ML IVPB SCH (12:18)
[2018-05-29] MEDS ORDERED: VANCOMYCIN 1 GRAM (PRE-DOCKED) 1,000 MG/250 ML BAG IVPB SCH (12:20)
[2018-05-29] MEDS ORDERED: SODIUM CHLORIDE 1,000 ML IV STA (12:24)
[2018-05-29] MEDS ORDERED: VANCOMYCIN 1 GM PREMIX - 1 GM/200 ML BAG IVPB SCH (12:30)
--- NOTE | 2018-05-29 14:22 | PN ---
Physical Exam: SUBJECTIVE: Patient seen and examined. Sinus tachy cardia in 130's-150's this am. Tachypneic and agitated. Patient placed on mechanical ventilation. Blood cultures growing gram - bacilli. OBJECTIVE: Vital Signs Period Temp Pulse Resp BP Sys/Lisa Pulse Ox Last 24 Hr 98.8 F-100.7 F 100-147 17-32 82-128/54-89 98-100 GENERAL: lethargic, on ventilator EYES: PERRL,sclera anicteric ENT: dry mucous membranes. LUNGS: scattered rhonchi HEART: tachy, regular rhythm ABDOMEN: Soft, nontender, nondistended, normoactive bowel sounds, peg tube EXTREMITIES: 2+ pulses Laboratory Results - last 24 hr 05/28/18 05/28/18 05/28/18 13:52 13:53 13:53 WBC 5.9 RBC 3.31 L Hgb 10.3 L Hct 31.9 L MCV 96.3 H MCH 31.0 MCHC 32.2 RDW 15.3 Plt Count 259 MPV 8.2 Absolute Neuts (auto) 5.5 Total Counted 100 Neutrophils % 93.1 H Neutrophils % (Manual) 38.0 L Band Neutrophils % 35.0 Lymphocytes % 4.9 L D Lymphocytes % (Manual) 6.0 L D Monocytes % 0.7 L D Monocytes % (Manual) 16 H D Eosinophils % 0.4 D Eosinophils % (Manual) Basophils % 0.9 D Basophils % (Manual) Myelocytes % (Man) 3 H D Promyelocytes % (Man) Blast Cells % (Manual) Nucleated RBC % 0 Metamyelocytes 3 H D Hypochromia Toxic Granulation 1+ Platelet Estimate Adequate Polychromasia Occasional Poikilocytosis Anisocytosis Microcytosis Macrocytosis Spherocytes Ovalocytes PT with INR 13.80 H INR 1.17 H PTT (Actin FS) 31.3 VBG pH POC VBG pCO2 POC VBG pO2 Mixed VBG HCO3 Sodium Potassium Chloride Carbon Dioxide Anion Gap BUN Creatinine Creat Clearance w eGFR Random Glucose Lactic Acid 4.8 H* Calcium Phosphorus Magnesium Total Bilirubin AST ALT Alkaline Phosphatase LD Total Troponin I Total Protein Albumin Urine Color Urine Appearance Urine pH Ur Specific [place] Urine Protein Urine Glucose (UA) Urine Ketones Urine Blood Urine Nitrite Urine Bilirubin Urine Urobilinogen Ur Leukocyte Esterase Urine WBC (Auto) Urine RBC (Auto) Ur Epithelial Cells Urine Bacteria Hyaline Casts Urine Mucus 10/26/18 10/26/18 10/26/18 13:53 13:53 13:53 WBC RBC Hgb Hct MCV MCH MCHC RDW Plt Count MPV Absolute Neuts (auto) Total Counted Neutrophils % Neutrophils % (Manual) Band Neutrophils % Lymphocytes % Lymphocytes % (Manual) Monocytes % Monocytes % (Manual) Eosinophils % Eosinophils % (Manual) Basophils % Basophils % (Manual) Myelocytes % (Man) Promyelocytes % (Man) Blast Cells % (Manual) Nucleated RBC % Metamyelocytes Hypochromia Toxic Granulation Platelet Estimate Polychromasia Poikilocytosis Anisocytosis Microcytosis Macrocytosis Spherocytes Ovalocytes PT with INR INR PTT (Actin FS) VBG pH 7.40 POC VBG pCO2 39.6 POC VBG pO2 56.8 H Mixed VBG HCO3 23.8 Sodium 139 Potassium 3.7 Chloride 101 Carbon Dioxide 26 Anion Gap 12 BUN 53 H Creatinine 1.5 H Creat Clearance w eGFR 36.91 Random Glucose 130 H Lactic Acid Calcium 8.3 L Phosphorus Magnesium Total Bilirubin 0.3 AST 26 ALT 19 Alkaline Phosphatase 79 LD Total 287 H Troponin I < 0.02 Total Protein 6.0 L Albumin 2.3 L Urine Color Urine Appearance Urine pH Ur Specific [place] Urine Protein Urine Glucose (UA) Urine Ketones Urine Blood Urine Nitrite Urine Bilirubin Urine Urobilinogen Ur Leukocyte Esterase Urine WBC (Auto) Urine RBC (Auto) Ur Epithelial Cells Urine Bacteria Hyaline Casts Urine Mucus 05/28/18 05/28/18 05/28/18 14:23 16:53 18:54 WBC RBC Hgb Hct MCV MCH MCHC RDW Plt Count MPV Absolute Neuts (auto) Total Counted Neutrophils % Neutrophils % (Manual) Band Neutrophils % Lymphocytes % Lymphocytes % (Manual) Monocytes % Monocytes % (Manual) Eosinophils % Eosinophils % (Manual) Basophils % Basophils % (Manual) Myelocytes % (Man) Promyelocytes % (Man) Blast Cells % (Manual) Nucleated RBC % Metamyelocytes Hypochromia Toxic Granulation Platelet Estimate Polychromasia Poikilocytosis Anisocytosis Microcytosis Macrocytosis Spherocytes Ovalocytes PT with INR INR PTT (Actin FS) VBG pH POC VBG pCO2 POC VBG pO2 Mixed VBG HCO3 Sodium Potassium Chloride Carbon Dioxide Anion Gap BUN Creatinine Creat Clearance w eGFR Random Glucose Lactic Acid 4.4 H* Calcium Phosphorus Magnesium Total Bilirubin AST ALT Alkaline Phosphatase LD Total Troponin I Total Protein Albumin Urine Color Naima Ltyellow Urine Appearance Turbid Slcloudy Urine pH 5.0 5.0 Ur Specific [place] 1.020 1.010 Urine Protein 2+ H Negative Urine Glucose (UA) Negative Negative Urine Ketones Negative Negative Urine Blood Negative Negative Urine Nitrite Negative Negative Urine Bilirubin Negative Negative Urine Urobilinogen Negative Negative Ur Leukocyte Esterase Negative Negative Urine WBC (Auto) 19 Urine RBC (Auto) 4 Ur Epithelial Cells Many Urine Bacteria Rare Hyaline Casts 66 Urine Mucus Rare 05/29/18 05/29/18 05/29/18 03:00 05:30 05:30 WBC 1.9 L* RBC 3.65 Hgb 11.3 Hct 35.5 MCV 97.1 H MCH 30.9 MCHC 31.8 L RDW 15.3 Plt Count 190 D MPV 8.7 Absolute Neuts (auto) 1.6 Total Counted Neutrophils % 83.8 H Neutrophils % (Manual) 36.8 L Band Neutrophils % 6.3 Lymphocytes % 13.8 D Lymphocytes % (Manual) 22.1 D Monocytes % 0.8 L Monocytes % (Manual) 5 Eosinophils % 1.5 D Eosinophils % (Manual) 0.0 D Basophils % 0.1 Basophils % (Manual) 14.7 H* D Myelocytes % (Man) 5 H D Promyelocytes % (Man) 0 Blast Cells % (Manual) 0 Nucleated RBC % 1 H Metamyelocytes 7 H D Hypochromia 0 Toxic Granulation Platelet Estimate Normal Polychromasia 1+ Poikilocytosis 0 Anisocytosis 1+ Microcytosis 1+ Macrocytosis 0 Spherocytes 1+ Ovalocytes 1+ PT with INR INR PTT (Actin FS) VBG pH POC VBG pCO2 POC VBG pO2 Mixed VBG HCO3 Sodium 148 H Potassium 2.7 L* Chloride 113 H Carbon Dioxide 22 Anion Gap 13 BUN 38 H Creatinine 0.8 Creat Clearance w eGFR > 60 Random Glucose 66 L Lactic Acid 5.5 H* Calcium 7.8 L Phosphorus 3.0 Magnesium 2.3 Total Bilirubin 0.6 AST 39 H ALT 19 Alkaline Phosphatase 97 LD Total Troponin I Total Protein 5.9 L Albumin 2.2 L Urine Color Urine Appearance Urine pH Ur Specific [place] Urine Protein Urine Glucose (UA) Urine Ketones Urine Blood Urine Nitrite Urine Bilirubin Urine Urobilinogen Ur Leukocyte Esterase Urine WBC (Auto) Urine RBC (Auto) Ur Epithelial Cells Urine Bacteria Hyaline Casts Urine Mucus 05/29/18 05:30 WBC RBC Hgb Hct MCV MCH MCHC RDW Plt Count MPV Absolute Neuts (auto) Total Counted Neutrophils % Neutrophils % (Manual) Band Neutrophils % Lymphocytes % Lymphocytes % (Manual) Monocytes % Monocytes % (Manual) Eosinophils % Eosinophils % (Manual) Basophils % Basophils % (Manual) Myelocytes % (Man) Promyelocytes % (Man) Blast Cells % (Manual) Nucleated RBC % Metamyelocytes Hypochromia Toxic Granulation Platelet Estimate Polychromasia Poikilocytosis Anisocytosis Microcytosis Macrocytosis Spherocytes Ovalocytes PT with INR INR PTT (Actin FS) VBG pH POC VBG pCO2 POC VBG pO2 Mixed VBG HCO3 Sodium Potassium Chloride Carbon Dioxide Anion Gap BUN Creatinine Creat Clearance w eGFR Random Glucose Lactic Acid 6.4 H* Calcium Phosphorus Magnesium Total Bilirubin AST ALT Alkaline Phosphatase LD Total Troponin I Total Protein Albumin Urine Color Urine Appearance Urine pH Ur Specific [place] Urine Protein Urine Glucose (UA) Urine Ketones Urine Blood Urine Nitrite Urine Bilirubin Urine Urobilinogen Ur Leukocyte Esterase Urine WBC (Auto) Urine RBC (Auto) Ur Epithelial Cells Urine Bacteria Hyaline Casts Urine Mucus Active Medications Generic Name Dose Route Start Last Admin Trade Name Freq PRN Reason Stop Dose Admin Acetaminophen 650 mg 05/28/18 21:35 Tylenol - PO Q6H PRN FEVER Acetylcysteine 200 mg 05/28/18 21:52 Mucomyst 20 Oral / Inh Use Only* NEB Q4H PRN COUGH Albuterol Sulfate 1 amp 05/28/18 21:35 Ventolin 0.083% Nebulizer Soln - NEB Q4H PRN SHORT OF BREATH/WHEEZING Albuterol/Ipratropium 1 amp 05/29/18 08:00 05/29/18 11:54 Duoneb - NEB 1 amp RQID RAZ Administration Budesonide/Formoterol Fumarate 2 puff 05/28/18 22:00 05/29/18 09:56 Symbicort 160/4.5mcg - IH Not Given BID RAZ Chlorhexidine Gluconate 1 applic 05/28/18 22:00 05/28/18 22:40 Hibiclens For Decolonization - TP 1 applic HS RAZ Administration Clonazepam 1 mg 05/28/18 21:53 05/29/18 09:54 Klonopin - GT 1 mg Q8H PRN Administration ANXIETY Emtricitabine/Tenofovir 1 tab 05/29/18 10:00 05/29/18 09:54 Truvada PO 1 tab DAILY RAZ Administration Etravirine 100 mg 05/28/18 22:00 05/29/18 09:56 Intelence - PO 100 mg BID RAZ Administration Gabapentin 250 mg 05/28/18 22:00 05/29/18 09:57 Neurontin Oral Liquid - PO 250 mg BID RAZ Administration Heparin Sodium (Porcine) 5,000 unit 05/28/18 22:00 05/29/18 09:16 Heparin - SQ 5,000 unit BID RAZ Administration Sodium Chloride 1,000 mls @ 125 mls/hr 05/28/18 21:45 05/28/18 22:39 Normal Saline - IV 125 mls/hr ASDIR RAZ Administration Fentanyl 500 mcg/ Dextrose 100 mls @ 10 mls/hr 05/29/18 12:00 05/29/18 12:18 IVPB 50 mcg/hr TITR RAZ 10 mls/hr Administration Protocol 50 MCG/HR Propofol 1,000,000 mcg in 100 mls @ 1.306 mls/hr 05/29/18 11:30 05/29/18 11: 10 Diprivan - IVPB 15 mcg/kg/min TITR RAZ 3.919 mls/hr Administration Protocol 5 MCG/KG/MIN Meropenem 1 gm/ Dextrose 100 mls @ 200 mls/hr 05/29/18 11:45 IVPB Q8H-IV RAZ Vancomycin HCl 1 gm in 200 mls @ 166.667 mls/hr 05/29/18 12:30 Vancomycin 1 Gm Premix - IVPB Q12H RAZ Protocol Mirtazapine 15 mg 05/29/18 10:00 05/29/18 09:55 Remeron - GT 15 mg DAILY RAZ Administration Mupirocin 1 applic 05/28/18 22:00 05/29/18 10:25 Bactroban Ointment (For Decolonization) - NS 06/02/18 21:59 1 applic BID RAZ Administration Raltegravir 400 mg 05/28/18 22:00 05/29/18 09:55 Isentress - PO 400 mg BID RAZ Administration Sertraline HCl 50 mg 05/29/18 07:00 05/29/18 10:24 Zoloft - GT 50 mg DAILY@0700 [facility] Administration Vancomycin HCl 125 mg 05/29/18 18:00 Vancomycin Oral Solution PO Q6HPO [facility] ASSESSMENT/PLAN: Pt is a 48 y/o F HIV/AIDS, laryngeal ca s/p tracheostomy, failure to thrive, PEG tube, Hep B, COPD, Asthma, positive C-diff (05/21) BIBA for SOB/increased mucus/fatigue for 7-10 days. She is admitted to ICU for acute hypoxic resp failure. #PULM -Acute hypoxic respiratory failure 2/2 RLL PNA -Sedated with Propofol, Fentanyl -low tidal volume ventilation 6cc/kg/IBW -keep Pplat <30 -FiO2, PEEP to keep SpO2 >90% -IV abx: Meropenem/Vancomycin #ID -RLL PNA -hx of HIV/AIDs -leukopenia. ANC 1.57 -Gram neg in blood cultures -IV abx -IV fluids -ID on board -lactic acidosis -trend lactic -cont. ART #GI -watery diarrhea -send stool for C. diff # -SONAM -IV fluids -monitor urine output -follow cr -avoid nephrotoxins #FEN -NS @ 125 -monitor #DVT -hep sq cont. ICU monitoring Visit type - Emergency Visit Emergency Visit: Yes ED Registration Date: 05/28/18 Care time: The patient presented to the Emergency Department on the above date and was hospitalized for further evaluation of their emergent condition. - New Patient This patient is new to me today: Yes Date on this admission: 05/29/18 - Critical Care Critical Care patient: Yes Total Critical Care Time (in minutes): 40 Critical Care Statement: The care of this patient involved high complexity decision making to prevent further life threatening deterioration of the patient 's condition and/or to evaluate & treat vital organ system(s) failure or risk of failure.
--- NOTE | 2018-05-29 15:03 | EKG ---
Test Reason : Blood Pressure : / mmHG Vent. Rate : 125 BPM Atrial Rate : 125 BPM P-R Int : 156 ms QRS Dur : 078 ms QT Int : 324 ms P-R-T Axes : 082 018 064 degrees QTc Int : 467 ms SINUS TACHYCARDIA POSSIBLE LEFT ATRIAL ENLARGEMENT NONSPECIFIC T WAVE ABNORMALITY ABNORMAL ECG WHEN COMPARED WITH ECG OF 11-APR-2018 10:40, NO SIGNIFICANT CHANGE WAS FOUND Confirmed by MD Marlena, Colton ([id number]) on 05/29/2018 3:02:41 PM Referred By: Confirmed By:Colton Mendiola MD
[2018-05-29] MEDS ORDERED: PT OWN MED DRAWER 7, Y5N ONE ×2 (15:07→21:55)
[2018-05-29] MEDS: MEROPENEM 1 GM in DEXTROSE 5%-WATER 100 ML IVPB SCH ×2 (15:09→17:33)
[2018-05-29 15:32] LABS: ARTERIAL BLD GAS O2 SATURATION 94.9 % (90-98.9); ARTERIAL BLOOD GAS BASE EXCESS -6.3 meq/l (-2-2); ARTERIAL BLOOD GAS PCO2 50.6 mmHg (35-45); ARTERIAL BLOOD GAS PO2 86.2 mmHg (80-100)
[2018-05-29] MEDS: VANCOMYCIN 1 GRAM (PRE-DOCKED) 1,000 MG/250 ML BAG IVPB SCH (15:44)
[2018-05-29 15:48] LABS: ARTERIAL BLOOD GAS pH 7.24 (7.35-7.45)
[2018-05-29] MEDS ORDERED: SODIUM CHLORIDE 1,000 ML IV SCH (16:45)
[2018-05-29] MEDS ORDERED: SODIUM CHLORIDE 500 ML IV STA ×2 (17:16→17:32)
[2018-05-29] MEDS: VASOPRESSIN 50 UNITS in SODIUM CHLORIDE 97.5 ML IVPB SCH (18:00)
[2018-05-29] MEDS ORDERED: PHENYLEPHRINE HCL 10 MG/1 ML SINGLE DOSE VIAL ONE (18:04)
[2018-05-29] MEDS ORDERED: EPINEPHrine 1:10,000 (P-F SYR) 1 MG/10 ML DISP.SYRIN ONE (18:09)
[2018-05-29 18:28] LABS: ARTERIAL BLD GAS O2 SATURATION 90.9 % (90-98.9); ARTERIAL BLOOD GAS BASE EXCESS -12.1 meq/l (-2-2); ARTERIAL BLOOD GAS PCO2 67.1 mmHg (35-45)
[2018-05-29] MEDS ORDERED: ATROPINE SULFATE 1 MG/10 ML DISP.SYRIN ONE (18:29)
[2018-05-29] MEDS ORDERED: EPINEPHrine/PF 1 MG/1 ML (1:1,000) AMPULE ONE (18:29)
[2018-05-29] MEDS ORDERED: NOREPINEPHRINE BITARTRATE 4 MG/4 ML ML IV ONE ×2 (18:30→18:32)
[2018-05-29 18:32] LABS: ARTERIAL BLOOD GAS pH 7.06 (7.35-7.45)
[2018-05-29 18:33] LABS: EOS % 5.9 % (0-4.5); HEMATOCRIT 35.5 % (32.4-45.2); LYMPH % 19.4 % (8-40); MCH 31.2 pg (25.7-33.7); MCHC 31.1 g/dl (32.0-36.0); MEAN CELL VOLUME 100.3 fl (80-96); MEAN PLT VOLUME 10.1 fl (7.5-11.1); MONO % 0.9 % (3.8-10.2); NEUT % 73.8 % (42.8-82.8); PLATELET COUNT 97 K/MM3 (134-434); RBC 3.54 M/mm3 (3.60-5.2); RDW 16.4 % (11.6-15.6); WHITE BLOOD COUNT 8.7 K/mm3 (4.0-10.0)
[2018-05-29] MEDS: SODIUM BICARBONATE 8.4% - 150 MEQ in DEXTROSE 5%-WATER - 1,000 ML IV SCH (18:40)
[2018-05-29] MEDS ORDERED: VASOPRESSIN 20 UNITS/ML VIAL IV ONE (18:43)
[2018-05-29] MEDS: NOREPINEPHRINE BITARTRATE 8,000 MCG in DEXTROSE 5%-WATER - 492 ML IV SCH (18:45)
[2018-05-29] MEDS: DOPAMINE HCL 400,000 MCG in SODIUM CHLORIDE 240 ML IV SCH (18:50)
[2018-05-29 18:51] LABS: ALBUMIN 1.7 g/dl (3.4-5.0); ALK PHOS 98 U/L (45-117); ANION GAP 13 MMOL/L (8-16); BILIRUBIN,TOTAL 0.5 mg/dL (0.2-1); BLOOD UREA NITROGEN 44 mg/dL (7-18); CHLORIDE 116 mmol/L (98-107); CO2 21 mmol/L (21-32); CREATININE 1.1 mg/dL (0.55-1.3); GLUCOSE,RANDOM 74 mg/dL (74-106); MAGNESIUM 2.3 mg/dL (1.8-2.4); PHOSPHOROUS 6.3 mg/dL (2.5-4.9); POTASSIUM 4.5 mmol/L (3.5-5.1); SGOT/AST 50 U/L (15-37); SGPT/ALT 16 U/L (13-61); SODIUM 149 mmol/L (136-145); TOT PROT 4.6 g/dl (6.4-8.2)
--- NOTE | 2018-05-29 19:42 | PN ---
Progress Note (short form) - Note Progress Note: [facility] Pt became pulseless, ACLS initiated with ROSC achieved, refer to code sheet for further details. Right femoral line emergently placed. Started on levophed, vasopressin, dopamine and phenylephrine gtts. Bicarb gtt started for metabolic acidosis. PEEP off for refractory shock. R axillary arterial line placed with good waveform on monitor. Discussed grave condition and poor overall prognosis with at bedside. Additional critical care time not including procedures 75 min. Jose Hyman MD
--- NOTE | 2018-05-29 19:43 | PROC ---
Central Line Insertion Indication: Vasopressor Risks and Benefits Explained: Yes Consent on Chart: No (emergent) Central Line: Triple Lumen Catheter Anesthesia: 1% Lidocaine Sterile Technique: Yes Ultrasound Guided Assistance: No Position: Right Femoral Sterile Dressing Applied: Yes
--- NOTE | 2018-05-29 19:45 | PROC ---
Procedure Note Procedure: PROCEDURE NOTE Under emergent conditions, R axillary arterial line placed under sterile conditions with ultrasound guidance using modified Seldinger technique. Good arterial blood return and good arterial waveform on monitor. Guidewire removed. Sterile dressing applied. Jose Hyman MD
[2018-05-29 20:07] LABS: ANISOCYTOSIS 0; MACROCYTOSIS 0; PLATELET ESTIMATE DECREASED
[2018-05-29] MEDS: HYDROCORTISONE SOD SUCCINATE 100 MG/2 ML VIAL IVPUSH SCH (20:17)
[2018-05-29] MEDS ORDERED: PHENYLEPHRINE HCL 20,000 MCG in SODIUM CHLORIDE 248 ML IVPB SCH (20:30)
[2018-05-29 21:09] LABS: ARTERIAL BLD GAS O2 SATURATION 93.6 % (90-98.9); ARTERIAL BLOOD GAS BASE EXCESS -7.3 meq/l (-2-2); ARTERIAL BLOOD GAS PCO2 56.8 mmHg (35-45); ARTERIAL BLOOD GAS PO2 79.9 mmHg (80-100)
[2018-05-29 21:14] LABS: ARTERIAL BLOOD GAS pH 7.18 (7.35-7.45)
[2018-05-29] MEDS: CHLORHEXIDINE GLUCONATE 4% CLEANSER FOR DECOLONIZATION TP SCH (22:24)
[2018-05-30] MEDS ORDERED: DOPAMINE 400 MG/D5W - 400,000 MCG/250 ML INFUS.BAG IVPB ONE ×2 (00:18→10:59)
[2018-05-30] MEDS ORDERED: NOREPINEPHRINE BITARTRATE 4 MG/4 ML ML IV ONE ×3 (00:19→19:00)
[2018-05-30] MEDS: VANCOMYCIN 250 MG/5 ML ORAL SOLUTION PO SCH ×4 (00:34→17:29)
[2018-05-30] MEDS ORDERED: PT OWN MED DRAWER 7, Y5N ONE ×4 (01:22→23:40)
[2018-05-30] MEDS: HYDROCORTISONE SOD SUCCINATE 100 MG/2 ML VIAL IVPUSH SCH ×3 (01:26→17:28)
[2018-05-30] MEDS: MEROPENEM 1 GM in DEXTROSE 5%-WATER 100 ML IVPB SCH ×3 (01:26→17:28)
[2018-05-30] MEDS ORDERED: OCULAR LUBRICANT OPHTHALMIC OINTMENT 7 GM TUBE OU PRN (02:00)
[2018-05-30] MEDS: VANCOMYCIN 1 GRAM (PRE-DOCKED) 1,000 MG/250 ML BAG IVPB SCH ×2 (02:37→16:09)
--- NOTE | 2018-05-30 05:05 | RAPID ---
Physical Examination Vital Signs: Vital Signs Temperature 100 F H 05/30/18 02:00 Pulse Rate 117 H 05/30/18 02:00 Respiratory Rate 28 H 05/30/18 03:45 Blood Pressure 99/78 05/30/18 02:00 O2 Sat by Pulse Oximetry (%) 91 L 05/29/18 21:30 Labs: CBC, BMP 05/29/18 18:00 05/29/18 18:00 Rapid Response - Rapid Response Assessment: Code 99 was called at 5;48 PM on 05/29. Patient was in PEA, epi was given ROSC was achieved within 12 minutes. Patient then coded again, rhythm was PEA epi and atropine give, ROSC achieved within 8 minutes. please refer to code sheet for further details. Outcome: patient now with central line and on multiple pressors.
[2018-05-30] MEDS ORDERED: HEMOQUE CONTROL SOLUTION ONE (05:53)
[2018-05-30 05:55] LABS: BASO % 0.1 % (0-2.0); EOS % 1.2 % (0-4.5); HEMATOCRIT 28.8 % (32.4-45.2); HEMOGLOBIN 8.9 GM/dL (10.7-15.3); LYMPH % 3.7 % (8-40); MCH 30.4 pg (25.7-33.7); MCHC 30.9 g/dl (32.0-36.0); MEAN CELL VOLUME 98.2 fl (80-96); MEAN PLT VOLUME 9.1 fl (7.5-11.1); MONO % 0.7 % (3.8-10.2); NEUT % 94.3 % (42.8-82.8); PLATELET COUNT 51 K/MM3 (134-434); RBC 2.93 M/mm3 (3.60-5.2); RDW 15.9 % (11.6-15.6); WHITE BLOOD COUNT 17.3 K/mm3 (4.0-10.0)
[2018-05-30] MEDS: SODIUM BICARBONATE 8.4% - 150 MEQ in DEXTROSE 5%-WATER - 1,000 ML IV SCH ×2 (06:01→09:00)
[2018-05-30] MEDS: SERTRALINE HCL 50 MG TABLET (FP) GT SCH (06:02)
[2018-05-30 06:39] LABS: ARTERIAL BLOOD GAS BASE EXCESS -2.9 meq/l (-2-2); ARTERIAL BLOOD GAS PCO2 61.3 mmHg (35-45); ARTERIAL BLOOD GAS PO2 89.7 mmHg (80-100)
[2018-05-30 06:55] LABS: ARTERIAL BLOOD GAS pH 7.23 (7.35-7.45)
[2018-05-30 07:05] LABS: ALBUMIN 1.4 g/dl (3.4-5.0); ALK PHOS 107 U/L (45-117); ANION GAP 12 MMOL/L (8-16); BILIRUBIN,TOTAL 0.6 mg/dL (0.2-1); BLOOD UREA NITROGEN 43 mg/dL (7-18); CHLORIDE 102 mmol/L (98-107); CO2 27 mmol/L (21-32); CREATININE 1.5 mg/dL (0.55-1.3); MAGNESIUM 1.9 mg/dL (1.8-2.4); PHOSPHOROUS 5.4 mg/dL (2.5-4.9); POTASSIUM 4.1 mmol/L (3.5-5.1); SGOT/AST 53 U/L (15-37); SGPT/ALT 20 U/L (13-61); SODIUM 141 mmol/L (136-145); TOT PROT 4.2 g/dl (6.4-8.2)
[2018-05-30 07:24] LABS: CALCIUM 5.9 mg/dL (8.5-10.1); GLUCOSE,RANDOM 312 mg/dL (74-106)
[2018-05-30] MEDS ORDERED: CALCIUM GLUCONATE 10% - 1,000 MG/10 ML VIAL IVPB ONE (07:40)
[2018-05-30] MEDS: ALBUTEROL SO4 2.5/IPRATROPIUM 0.5 INH SOL 3 ML VIAL.NEB. NEB SCH ×4 (08:23→20:51)
[2018-05-30 09:29] LABS: ANISOCYTOSIS 2+; MACROCYTOSIS 0; PLATELET ESTIMATE DECREASED
[2018-05-30] MEDS: MUPIROCIN 2% TOPICAL OINTMENT FOR DECOLONIZATION NS SCH ×2 (09:52→22:00)
[2018-05-30] MEDS: HEPARIN NA (PORCINE) 5,000 UNITS/ML 1ML VIAL SQ SCH ×2 (09:53→22:00)
[2018-05-30] MEDS: ETRAVIRINE 100 MG TABLET PO SCH ×2 (09:54→22:00)
[2018-05-30] MEDS: EMTRICITABINE 200MG/TENOFOVIR 300MG PO SCH (09:55)
[2018-05-30] MEDS: RALTEGRAVIR POTASSIUM 400 MG TAB PO SCH ×2 (09:55→22:00)
[2018-05-30] MEDS: MIRTAZAPINE 15 MG TABLET (FP) GT SCH (10:00)
[2018-05-30] MEDS: BUDESONIDE/FORMETEROL FUMARATE 160/4.5 mcg INHALER IH SCH (10:03)
[2018-05-30] MEDS: GABAPENTIN 250 MG/5 ML ORAL SOLUTION, 470 ML BOTTLE PO SCH ×2 (10:25→22:00)
--- NOTE | 2018-05-30 10:53 | PN ---
Progress Note (short form) - Note Progress Note: Patient is lying in bed on 4 different pressors, unresponsive . On the vent now , overnight events noted. Patient coded overnight again. on Multiple pressors Vital Signs Temperature 99.9 F H 05/30/18 06:00 Pulse Rate 116 H 05/30/18 06:00 Respiratory Rate 28 H 05/30/18 09:46 Blood Pressure 103/81 05/30/18 06:00 O2 Sat by Pulse Oximetry (%) 91 L 05/29/18 21:30 Gen:intubated on the vent. HEENT: temporal wasting, atraumatic, dry membranes Neck: supple, no jvd Pulm: Decreased air entery BL , on the vent. Cardio: S1S2 positive, tachycardic. Abd: distended, positive for Gtube , BS positive Ext: no edema, 2+ pulses Neuro:unable to access CBCD WBC 17.3 K/mm3 (4.0-10.0) H 05/30/18 05:30 RBC 2.93 M/mm3 (3.60-5.2) L 05/30/18 05:30 Hgb 8.9 GM/dL (10.7-15.3) L 05/30/18 05:30 Hct 28.8 % (32.4-45.2) L D 05/30/18 05:30 MCV 98.2 fl (80-96) H 05/30/18 05:30 MCHC 30.9 g/dl (32.0-36.0) L 05/30/18 05:30 RDW 15.9 % (11.6-15.6) H 05/30/18 05:30 Plt Count 51 K/MM3 (134-434) L D 05/30/18 05:30 MPV 9.1 fl (7.5-11.1) 05/30/18 05:30 CMP Sodium 141 mmol/L (136-145) 05/30/18 05:30 Potassium 4.1 mmol/L (3.5-5.1) 05/30/18 05:30 Chloride 102 mmol/L (98-107) 05/30/18 05:30 Carbon Dioxide 27 mmol/L (21-32) 05/30/18 05:30 Anion Gap 12 MMOL/L (8-16) 05/30/18 05:30 BUN 43 mg/dL (7-18) H 05/30/18 05:30 Creatinine 1.5 mg/dL (0.55-1.3) H 05/30/18 05:30 Creat Clearance w eGFR 36.91 (>60) 05/30/18 05:30 Random Glucose 312 mg/dL (74-106) H* 05/30/18 05:30 Calcium 5.9 mg/dL (8.5-10.1) L* 05/30/18 05:30 Total Bilirubin 0.6 mg/dL (0.2-1) 05/30/18 05:30 AST 53 U/L (15-37) H 05/30/18 05:30 ALT 20 U/L (13-61) 05/30/18 05:30 Alkaline Phosphatase 107 U/L (45-117) 05/30/18 05:30 Total Protein 4.2 g/dl (6.4-8.2) L 05/30/18 05:30 Albumin 1.4 g/dl (3.4-5.0) L 05/30/18 05:30 CARDIAC ENZYMES Troponin I < 0.02 ng/ml (0.00-0.05) 05/28/18 13:53 Current Medications Generic Name Dose Route Start Last Admin Trade Name Freq PRN Reason Stop Dose Admin Acetaminophen 650 mg 05/28/18 21:35 Tylenol - PO Q6H PRN FEVER Acetylcysteine 200 mg 05/28/18 21:52 Mucomyst 20 Oral / Inh Use Only* NEB Q4H PRN COUGH Albuterol Sulfate 1 amp 05/28/18 21:35 Ventolin 0.083% Nebulizer Soln - NEB Q4H PRN SHORT OF BREATH/WHEEZING Albuterol/Ipratropium 1 amp 05/29/18 08:00 05/30/18 08:23 Duoneb - NEB 1 amp RQID RAZ Administration Artificial Tears 1 applic 05/30/18 02:00 05/30/18 10:08 Lacri-Lube Eye Ointment - OU 1 applic HS PRN Administration DRY EYES Budesonide/Formoterol Fumarate 2 puff 05/28/18 22:00 05/30/18 10:03 Symbicort 160/4.5mcg - IH Not Given BID RAZ Chlorhexidine Gluconate 1 applic 05/28/18 22:00 05/29/18 22:24 Hibiclens For Decolonization - TP 1 applic HS RAZ Administration Clonazepam 1 mg 05/28/18 21:53 05/29/18 09:54 Klonopin - GT 1 mg Q8H PRN Administration ANXIETY Emtricitabine/Tenofovir 1 tab 05/29/18 10:00 05/30/18 09:55 Truvada PO 1 tab DAILY RAZ Administration Etravirine 100 mg 05/28/18 22:00 05/30/18 09:54 Intelence - PO 100 mg BID RAZ Administration Gabapentin 250 mg 05/28/18 22:00 05/30/18 10:25 Neurontin Oral Liquid - PO 250 mg BID RAZ Administration Heparin Sodium (Porcine) 5,000 unit 05/28/18 22:00 05/30/18 09:53 Heparin - SQ 5,000 unit BID RAZ Administration Hydrocortisone Sodium Succinate 100 mg 05/29/18 19:30 05/30/18 10:00 Solu-Cortef - IVPUSH 100 mg Q8H-IV RAZ Administration Fentanyl 500 mcg/ Dextrose 100 mls @ 10 mls/hr 05/29/18 12:00 05/29/18 17:40 IVPB 0 mcg/hr TITR RAZ 0 mls/hr Titration Protocol 50 MCG/HR Propofol 1,000,000 mcg in 100 mls @ 1.306 mls/hr 05/29/18 11:30 05/29/18 11: 10 Diprivan - IVPB 15 mcg/kg/min TITR RAZ 3.919 mls/hr Administration Protocol 5 MCG/KG/MIN Meropenem 1 gm/ Dextrose 100 mls @ 200 mls/hr 05/29/18 11:45 05/30/18 09:58 IVPB 200 mls/hr Q8H-IV RAZ Administration Vancomycin HCl 1,000 mg in 250 mls @ 166.667 mls/hr 05/29/18 15:23 05/30/18 02:37 Vancomycin (Pre-Docked) IVPB 166.667 mls/hr Q12H RAZ Administration Protocol Sodium Chloride 1,000 mls @ 150 mls/hr 05/29/18 16:45 05/29/18 16:30 Normal Saline - IV 150 mls/hr ASDIR RAZ Administration Epinephrine 1,000 mcg/ 250 mls @ 65.31 mls/hr 05/29/18 19:45 05/29/18 20:00 Dextrose IVPB Not Given ASDIR RAZ Protocol 0.1 MCG/KG/MIN Sodium Bicarbonate 150 meq/ 1,150 mls @ 150 mls/hr 05/29/18 20:30 05/30/18 09 :00 Dextrose IV 150 mls/hr Q8H RAZ Administration Dopamine HCl 400,000 mcg/ 250 mls @ 3.26 mls/hr 05/29/18 20:30 05/30/18 09:30 Sodium Chloride IV 10 mcg/kg/min TITR RAZ 16.32 mls/hr Titration Protocol 2 MCG/KG/MIN Vasopressin 50 units/ Sodium 100 mls @ 4 mls/hr 05/29/18 20:30 05/30/18 09:40 Chloride IVPB 6 units/hr ASDIR ARZ 12 mls/hr Titration Protocol 2 UNITS/HR Norepinephrine Bitartrate 8, 500 mls @ 18.75 mls/hr 05/29/18 20:30 05/30/18 05:30 000 mcg/ Dextrose IV 20 mcg/min TITR RAZ 75 mls/hr Titration Protocol 5 MCG/MIN Phenylephrine HCl 20,000 mcg/ 250 mls @ 75 mls/hr 05/29/18 20:30 05/29/18 23: 36 Sodium Chloride IVPB 0 mcg/min ASDIR RAZ 0 mls/hr Titration Protocol 100 MCG/MIN Mirtazapine 15 mg 05/29/18 10:00 05/30/18 10:00 Remeron - GT 15 mg DAILY RAZ Administration Mupirocin 1 applic 05/28/18 22:00 05/30/18 09:52 Bactroban Ointment (For Decolonization) - NS 06/02/18 21:59 1 applic BID RAZ Administration Raltegravir 400 mg 05/28/18 22:00 05/30/18 09:55 Isentress - PO 400 mg BID RAZ Administration Sertraline HCl 50 mg 05/29/18 07:00 05/30/18 06:02 Zoloft - GT 50 mg DAILY@0700 RAZ Administration Vancomycin HCl 125 mg 05/29/18 18:00 05/30/18 06:02 Vancomycin Oral Solution PO 125 mg Q6HPO RAZ Administration Home Medications Medication Instructions Recorded Zolpidem Tartrate [Ambien] 5 mg PO HS #30 tablet MDD 1 03/04/18 Acetaminophen [Tylenol .Regular 650 mg PO Q6H PRN tablet 04/26/18 Strength -] Acetylcysteine Po/INH 20% 200 mg NEB Q4HWA PRN #1 vial 05/06/18 [Mucomyst 20 Oral / INH Use Only*] Albuterol 0.083% Nebulizer Key[place] 1 neb NEB Q4H PRN #1 box MDD 6 05/06/18 [Ventolin 0.083% Nebulizer Soln -] Emtricitabine/Tenofovir [Truvada -] 1 tab PEG DAILY #30 tablet 05/06/18 Etravirine [Intelence -] 100 mg PEG BID #60 tablet 05/06/18 Gabapentin Liquid [Neurontin Oral 250 mg PO BID #1 bottle 05/06/18 Liquid -] Raltegravir [Isentress] 400 mg PEG BID #60 tab 05/06/18 Amoxicillin - [Amoxicillin 500mg 500 mg PO Q8H 05/28/18 Capsule -] Clonazepam [Klonopin] 1 mg GT TID PRN MDD 3 05/28/18 Mirtazapine [Remeron -] 15 mg GT DAILY 05/28/18 Prednisone 15 mg GT DAILY 05/28/18 Sertraline HCl [Zoloft] 100 mg GT AM 05/28/18 ASSESSMENT/PLAN: Pt is a 48 y/o F HIV/AIDS, laryngeal ca s/p tracheostomy, failure to thrive, PEG tube, Hep B, COPD, Asthma, positive C-diff (05/21) for SOB/increased mucus/ fatigue for 7-10 days. She is admitted to ICU for acute hypoxic resp failure. #Acute hypoxemic respiratory failure due to PNA On IV Vancomycin and meropenem , ID consult appreciated. #ARDS due to severe sepsis., penumonia/Gram negative Bacteremia # severe Sepsis with Gram Negative Bacteremia with thrombocytopenia r/o DIC with acute hypoxemic respiratory failure s/ intubation s/p cardiac arrest x2 on 4 different pressors. #PNA on IV Vanc/meropenem ID on the case #SONAM with Pressure Steamer Tender 1.5( baseline 0.3) on iv NS # Hypokalemia improved due to severe diarrhea. #Hx C. diff, stool studies are pending, on Po Vanc #HIV/Aids; with Truvada, Etravirine, Isentress # H/o Laryngeal Ca s/p tracheostomy #Peg tube , npo for now #PPx :HSQ in ICU critical care of 35min Visit type - Emergency Visit Emergency Visit: Yes ED Registration Date: 05/28/18 Care time: The patient presented to the Emergency Department on the above date and was hospitalized for further evaluation of their emergent condition. - New Patient This patient is new to me today: No - Critical Care Critical Care patient: Yes Total Critical Care Time (in minutes): 35 Critical Care Statement: The care of this patient involved high complexity decision making to prevent further life threatening deterioration of the patient 's condition and/or to evaluate & treat vital organ system(s) failure or risk of failure.
--- NOTE | 2018-05-30 10:57 | PN ---
Progress Note, Physician Chief Complaint: Pt intubated; sedated. History of Present Illness: Pt is a 48yo f with PMH of HIV/AIDS, laryngeal ca s/p tracheostomy, failure to thrive, PEG tube, HepB, COPD/Asthma (s/p thoracocentesis 04/2018); small amount pericardia effusion noted on two ECHOs , BIBA for vomiting, diarrhea, increased mucus production and cough and generalized weakness. Per , pt had a tooth infection 4 days ago on Thursday, went to the dentist, was given amoxicillin and "everything went downhill". Pt started becoming lethargic, vomiting, diarrhea, cough, SOB, increased mucus production, fevers. says fevers were on and off and would get as high as 104. Pt was recently d/c from the hospital for pneumonia on 04/26. She was d/c with PICC line (cefepime). PICC line was removed 1.5 weeks ago. She takes her medications daily (crushed through PEG). says pt CD4 counts are "fine" and viral load is undetectable. Pt complains of generalized abdominal pain as well. - Current Medication List Current Medications: Active Medications Acetaminophen (Tylenol -) 650 mg PO Q6H PRN PRN Reason: FEVER Acetylcysteine (Mucomyst 20 Oral / Inh Use Only*) 200 mg NEB Q4H PRN PRN Reason: COUGH Albuterol Sulfate (Ventolin 0.083% Nebulizer Soln -) 1 amp NEB Q4H PRN PRN Reason: SHORT OF BREATH/WHEEZING Albuterol/Ipratropium (Duoneb -) 1 amp NEB RQID [facility] Last Admin: 05/30/18 08:23 Dose: 1 amp Artificial Tears (Lacri-Lube Eye Ointment -) 1 applic OU HS PRN PRN Reason: DRY EYES Last Admin: 05/30/18 10:08 Dose: 1 applic Budesonide/Formoterol Fumarate (Symbicort 160/4.5mcg -) 2 puff IH BID [facility] Last Admin: 05/30/18 10:03 Dose: Not Given Chlorhexidine Gluconate (Hibiclens For Decolonization -) 1 applic TP HS [facility] Last Admin: 05/29/18 22:24 Dose: 1 applic Clonazepam (Klonopin -) 1 mg GT Q8H PRN PRN Reason: ANXIETY Last Admin: 05/29/18 09:54 Dose: 1 mg Emtricitabine/Tenofovir (Truvada) 1 tab PO DAILY [facility] Last Admin: 05/30/18 09:55 Dose: 1 tab Etravirine (Intelence -) 100 mg PO BID [facility] Last Admin: 05/30/18 09:54 Dose: 100 mg Gabapentin (Neurontin Oral Liquid -) 250 mg PO BID [facility] Last Admin: 05/30/18 10:25 Dose: 250 mg Heparin Sodium (Porcine) (Heparin -) 5,000 unit SQ BID [facility] Last Admin: 05/30/18 09:53 Dose: 5,000 unit Hydrocortisone Sodium Succinate (Solu-Cortef -) 100 mg IVPUSH Q8H-IV [facility] Last Admin: 05/30/18 10:00 Dose: 100 mg Fentanyl 500 mcg/ Dextrose 100 mls @ 10 mls/hr IVPB TITR [facility]; Protocol Last Titration: 05/29/18 17:40 Dose: 0 mcg/hr, 0 mls/hr Propofol (Diprivan -) 1,000,000 mcg in 100 mls @ 1.306 mls/hr IVPB TITR [facility]; Protocol Last Admin: 05/29/18 11:10 Dose: 15 mcg/kg/min, 3.919 mls/hr Meropenem 1 gm/ Dextrose 100 mls @ 200 mls/hr IVPB Q8H-IV [facility] Last Admin: 05/30/18 09:58 Dose: 200 mls/hr Vancomycin HCl (Vancomycin (Pre-Docked)) 1,000 mg in 250 mls @ 166.667 mls/hr IVPB Q12H [facility]; Protocol Last Admin: 05/30/18 02:37 Dose: 166.667 mls/hr Sodium Chloride (Normal Saline -) 1,000 mls @ 150 mls/hr IV ASDIR [facility] Last Admin: 05/29/18 16:30 Dose: 150 mls/hr Epinephrine 1,000 mcg/ (Dextrose) 250 mls @ 65.31 mls/hr IVPB ASDIR [facility]; Protocol Last Admin: 05/29/18 20:00 Dose: Not Given Sodium Bicarbonate 150 meq/ (Dextrose) 1,150 mls @ 150 mls/hr IV Q8H [facility] Last Admin: 05/30/18 09:00 Dose: 150 mls/hr Dopamine HCl 400,000 mcg/ (Sodium Chloride) 250 mls @ 3.26 mls/hr IV TITR [facility]; Protocol Last Titration: 05/30/18 09:30 Dose: 10 mcg/kg/min, 16.32 mls/hr Vasopressin 50 units/ Sodium (Chloride) 100 mls @ 4 mls/hr IVPB ASDIR [facility]; Protocol Last Titration: 05/30/18 09:40 Dose: 6 units/hr, 12 mls/hr Norepinephrine Bitartrate 8, (000 mcg/ Dextrose) 500 mls @ 18.75 mls/hr IV TITR [facility]; Protocol Last Titration: 05/30/18 05:30 Dose: 20 mcg/min, 75 mls/hr Phenylephrine HCl 20,000 mcg/ (Sodium Chloride) 250 mls @ 75 mls/hr IVPB ASDIR [facility]; Protocol Last Titration: 05/29/18 23:36 Dose: 0 mcg/min, 0 mls/hr Magnesium Sulfate/Dextrose 1 (gm/ Miscellaneous) 100 mls @ 100 mls/hr IVPB ONCE ONE Stop: 05/30/18 11:54 Mirtazapine (Remeron -) 15 mg GT DAILY [facility] Last Admin: 05/30/18 10:00 Dose: 15 mg Mupirocin (Bactroban Ointment (For Decolonization) -) 1 applic NS BID [facility] Stop: 06/02/18 21:59 Last Admin: 05/30/18 09:52 Dose: 1 applic Raltegravir (Isentress -) 400 mg PO BID [facility] Last Admin: 05/30/18 09:55 Dose: 400 mg Sertraline HCl (Zoloft -) 50 mg GT DAILY@0700 [facility] Last Admin: 05/30/18 06:02 Dose: 50 mg Vancomycin HCl (Vancomycin Oral Solution) 125 mg PO Q6HPO [facility] Last Admin: 05/30/18 06:02 Dose: 125 mg - Objective Vital Signs: Vital Signs Temperature 99.9 F H 05/30/18 06:00 Pulse Rate 116 H 05/30/18 06:00 Respiratory Rate 28 H 05/30/18 09:46 Blood Pressure 103/81 05/30/18 06:00 O2 Sat by Pulse Oximetry (%) 91 L 05/29/18 21:30 Constitutional: Yes: Cachectic Eyes: Yes: Other (edematous; dressing placed over both) HENT: Yes: Other Neck: Yes: Decreased ROM Cardiovascular: Yes: Tachycardia, S1, S2 Respiratory: Yes: Mechanically Ventilated Gastrointestinal: Yes: Soft Genitourinary: Yes: Ugarte Present (1400 ml output since Ugarte placed yesterday afternoon). No: Anuria Musculoskeletal: Yes: Muscle Weakness Extremities: Yes: Cool Edema: No Peripheral Pulses WNL: No Peripheral Pulses: Left Doralis Pedis: 1+, Right Dorsalis Pedis: 1+ Integumentary: Yes: Other Neurological: Yes: Unresponsive Psychiatric: Yes: Other Labs: CBC, BMP 05/30/18 05:30 05/30/18 05:30 INR, PTT INR 1.17 (0.83-1.09) H 05/28/18 13:53 Abnormal Lab Results 05/29/18 05/29/18 05/29/18 05:30 15:12 15:40 WBC RBC Hgb Hct MCV MCHC RDW Plt Count Absolute Neuts (auto) Neutrophils % Neutrophils % (Manual) 36.8 L Lymphocytes % Lymphocytes % (Manual) Monocytes % Eosinophils % Basophils % (Manual) 14.7 H* D Myelocytes % (Man) 5 H D Blast Cells % (Manual) Nucleated RBC % Metamyelocytes 7 H D ABG pH 7.24 L* D ABG pCO2 at Pt Temp 50.6 H ABG pO2 at Pt Temp ABG HCO3 20.7 L ABG O2 Content 14.2 L ABG Base Excess -6.3 L Sodium Chloride BUN Creatinine Random Glucose Lactic Acid 2.6 H* Calcium Phosphorus AST Total Protein Albumin 05/29/18 05/29/18 05/29/18 18:00 18:00 18:00 WBC RBC 3.54 L Hgb Hct MCV 100.3 H MCHC 31.1 L RDW 16.4 H Plt Count 97 L D Absolute Neuts (auto) Neutrophils % Neutrophils % (Manual) Lymphocytes % Lymphocytes % (Manual) Monocytes % 0.9 L Eosinophils % 5.9 H D Basophils % (Manual) 9.0 H* Myelocytes % (Man) Blast Cells % (Manual) 1 H D Nucleated RBC % 1 H Metamyelocytes ABG pH 7.06 L* D ABG pCO2 at Pt Temp 67.1 H* D ABG pO2 at Pt Temp ABG HCO3 18.2 L ABG O2 Content 12.8 L ABG Base Excess -12.1 L* Sodium 149 H Chloride 116 H BUN 44 H Creatinine Random Glucose Lactic Acid Calcium 7.0 L Phosphorus 6.3 H AST 50 H Total Protein 4.6 L Albumin 1.7 L 05/29/18 05/29/18 05/29/18 18:24 21:00 23:20 WBC RBC Hgb Hct MCV MCHC RDW Plt Count Absolute Neuts (auto) Neutrophils % Neutrophils % (Manual) Lymphocytes % Lymphocytes % (Manual) Monocytes % Eosinophils % Basophils % (Manual) Myelocytes % (Man) Blast Cells % (Manual) Nucleated RBC % Metamyelocytes ABG pH 7.18 L* ABG pCO2 at Pt Temp 56.8 H ABG pO2 at Pt Temp 79.9 L ABG HCO3 20.5 L ABG O2 Content 11.1 L ABG Base Excess -7.3 L Sodium Chloride BUN Creatinine Random Glucose Lactic Acid 7.5 H* 5.5 H* Calcium Phosphorus AST Total Protein Albumin 05/30/18 05/30/18 05/30/18 05:30 05:30 06:00 WBC 17.3 H RBC 2.93 L Hgb 8.9 L Hct 28.8 L D MCV 98.2 H MCHC 30.9 L RDW 15.9 H Plt Count 51 L D Absolute Neuts (auto) 16.3 H Neutrophils % 94.3 H D Neutrophils % (Manual) Lymphocytes % 3.7 L D Lymphocytes % (Manual) 4.0 L D Monocytes % 0.7 L Eosinophils % Basophils % (Manual) Myelocytes % (Man) Blast Cells % (Manual) Nucleated RBC % Metamyelocytes 4 H D ABG pH 7.23 L* ABG pCO2 at Pt Temp 61.3 H* ABG pO2 at Pt Temp ABG HCO3 ABG O2 Content 12.5 L ABG Base Excess -2.9 L Sodium Chloride BUN 43 H Creatinine 1.5 H Random Glucose 312 H* Lactic Acid Calcium 5.9 L* Phosphorus 5.4 H AST 53 H Total Protein 4.2 L Albumin 1.4 L - ....Imaging Chest X-ray: Pending Other: Image Reviewed (telemetry: sinus tachycardia) Problem List - Problems (1) Leukopenia Assessment/Plan: initially normal WBC-->leukopenia-->now leukocytotic On antibiotics. F/u with ID Code(s): D72.819 - DECREASED WHITE BLOOD CELL COUNT, UNSPECIFIED (2) Pneumonia Assessment/Plan: antibiotics per ID. Code(s): J18.9 - PNEUMONIA, UNSPECIFIED ORGANISM Qualifiers: Pneumonia type: due to unspecified organism Laterality: right Lung location: lower lobe of lung Qualified Code(s): J18.1 - Lobar pneumonia, unspecified organism (3) Acute on chronic respiratory failure with hypoxia and hypercapnia Assessment/Plan: bronchodilators, steroids, antibiotics per inspector rubber stamp die. Code(s): J96.21 - ACUTE AND CHRONIC RESPIRATORY FAILURE WITH HYPOXIA; J96.22 - ACUTE AND CHRONIC RESPIRATORY FAILURE WITH HYPERCAPNIA (4) C. difficile diarrhea Assessment/Plan: hx C.difficile; f/u cultures. Code(s): A04.72 - ENTEROCOLITIS D/T CLOSTRIDIUM DIFFICILE, NOT SPCF RECUR (5) COPD (chronic obstructive pulmonary disease) Code(s): J44.9 - CHRONIC OBSTRUCTIVE PULMONARY DISEASE, UNSPECIFIED (6) Hyperthyroidism Assessment/Plan: TSH WNL. Code(s): E05.90 - THYROTOXICOSIS, UNSP WITHOUT THYROTOXIC CRISIS OR STORM (7) Pericardial effusion Assessment/Plan: F/u ECHO (small amount pericardial effusion 04/08/2018 was unchanged 04/12/2018) . Code(s): I31.3 - PERICARDIAL EFFUSION (NONINFLAMMATORY) (8) AIDS Code(s): B20 - HUMAN IMMUNODEFICIENCY VIRUS [HIV] DISEASE (9) Failure to thrive in adult Code(s): R62.7 - ADULT FAILURE TO THRIVE (10) Psychosocial stressors Code(s): Z65.8 - OTH PROBLEMS RELATED TO PSYCHOSOCIAL CIRCUMSTANCES (11) Tobacco dependence Code(s): F17.200 - NICOTINE DEPENDENCE, UNSPECIFIED, UNCOMPLICATED (12) Tracheostomy dependence Code(s): Z93.0 - TRACHEOSTOMY STATUS (13) Vitamin D deficiency Code(s): E55.9 - VITAMIN D DEFICIENCY, UNSPECIFIED (14) Tachycardia Assessment/Plan: sinus tachycardia. F/u HR (presently elevated; titrate off vasopressors as toleratd, beginning with lowering dose of dopamine) and BP. On IVF with Na HCO3. ECHO 04/08/2018: normal LVEF; small amount pericardial effusion, without evidence of tamponade. Code(s): R00.0 - TACHYCARDIA, UNSPECIFIED (15) Septic shock Assessment/Plan: IV fluids. Antibiotics per ID. Replete electrolytes: Keep K 4-4.5, Mg 2-2.4 (will give supplement IV Mg now), PO4 2.5-4.9. Serial BP and HR; now off phenylephrine. Titrate off dopamine, norepinephrine, and vasopresssin if pt stable and tolerates the reductions. Poor prognosis. Code(s): A41.9 - SEPSIS, UNSPECIFIED ORGANISM; R65.21 - SEVERE SEPSIS WITH SEPTIC SHOCK (16) Diastolic CHF Code(s): I50.30 - UNSPECIFIED DIASTOLIC (CONGESTIVE) HEART FAILURE
[2018-05-30] MEDS: DOPAMINE HCL 400,000 MCG in SODIUM CHLORIDE 240 ML IV SCH (11:03)
[2018-05-30] MEDS ORDERED: SODIUM CHLORIDE 1,000 ML with SODIUM BICARBONATE 8.4% - 100 MEQ IV SCH (11:15)
--- NOTE | 2018-05-30 11:18 | PN ---
Teaching Attending Note Name of Resident: Katarzyna Hull ATTENDING PHYSICIAN STATEMENT I saw and evaluated the patient. I reviewed the resident's note and discussed the case with the resident. I agree with the resident's findings and plan as documented. SUBJECTIVE: Pt seen and examined in the ICU. Remains vented on levophed, dopamine and vasopressin gtts. Off phenylephrine gtt. Unresponsive off sedation. Oxygenating better. Vented on volume assist control with 100% FiO2 and PEEP 15. OBJECTIVE: Vital Signs Period Temp Pulse Resp BP Sys/Lisa Pulse Ox Last 24 Hr 98.8 F-101.1 F 115-142 26-34 80-121/42-89 91-91 Intake & Output 05/27/18 05/28/18 05/29/18 05/30/18 23:59 23:59 23:59 23:59 Intake Total 3100 6785 3758 Output Total 660 700 700 Balance 2440 6085 3058 Weight 43.545 kg 43.545 kg Gen: vented, unresponsive Heart: tachycardic, regular Lung: scattered rhonchi Abd: distended Ext: no edema CBC, BMP 05/30/18 05:30 05/30/18 05:30 Active Medications Acetaminophen (Tylenol -) 650 mg PO Q6H PRN PRN Reason: FEVER Acetylcysteine (Mucomyst 20 Oral / Inh Use Only*) 200 mg NEB Q4H PRN PRN Reason: COUGH Albuterol Sulfate (Ventolin 0.083% Nebulizer Soln -) 1 amp NEB Q4H PRN PRN Reason: SHORT OF BREATH/WHEEZING Albuterol/Ipratropium (Duoneb -) 1 amp NEB RQID [facility] Last Admin: 05/30/18 08:23 Dose: 1 amp Artificial Tears (Lacri-Lube Eye Ointment -) 1 applic OU HS PRN PRN Reason: DRY EYES Last Admin: 05/30/18 10:08 Dose: 1 applic Budesonide/Formoterol Fumarate (Symbicort 160/4.5mcg -) 2 puff IH BID [facility] Last Admin: 05/30/18 10:03 Dose: Not Given Chlorhexidine Gluconate (Hibiclens For Decolonization -) 1 applic TP HS [facility] Last Admin: 05/29/18 22:24 Dose: 1 applic Emtricitabine/Tenofovir (Truvada) 1 tab PO DAILY [facility] Last Admin: 05/30/18 09:55 Dose: 1 tab Etravirine (Intelence -) 100 mg PO BID [facility] Last Admin: 05/30/18 09:54 Dose: 100 mg Gabapentin (Neurontin Oral Liquid -) 250 mg PO BID [facility] Last Admin: 05/30/18 10:25 Dose: 250 mg Heparin Sodium (Porcine) (Heparin -) 5,000 unit SQ BID [facility] Last Admin: 05/30/18 09:53 Dose: 5,000 unit Hydrocortisone Sodium Succinate (Solu-Cortef -) 100 mg IVPUSH Q8H-IV [facility] Last Admin: 05/30/18 10:00 Dose: 100 mg Fentanyl 500 mcg/ Dextrose 100 mls @ 10 mls/hr IVPB TITR [facility]; Protocol Last Titration: 05/29/18 17:40 Dose: 0 mcg/hr, 0 mls/hr Propofol (Diprivan -) 1,000,000 mcg in 100 mls @ 1.306 mls/hr IVPB TITR [facility]; Protocol Last Admin: 05/29/18 11:10 Dose: 15 mcg/kg/min, 3.919 mls/hr Meropenem 1 gm/ Dextrose 100 mls @ 200 mls/hr IVPB Q8H-IV [facility] Last Admin: 05/30/18 09:58 Dose: 200 mls/hr Vancomycin HCl (Vancomycin (Pre-Docked)) 1,000 mg in 250 mls @ 166.667 mls/hr IVPB Q12H [facility]; Protocol Last Admin: 05/30/18 02:37 Dose: 166.667 mls/hr Sodium Chloride (Normal Saline -) 1,000 mls @ 150 mls/hr IV ASDIR [facility] Last Admin: 05/29/18 16:30 Dose: 150 mls/hr Epinephrine 1,000 mcg/ (Dextrose) 250 mls @ 65.31 mls/hr IVPB ASDIR [facility]; Protocol Last Admin: 05/29/18 20:00 Dose: Not Given Dopamine HCl 400,000 mcg/ (Sodium Chloride) 250 mls @ 3.26 mls/hr IV TITR [facility]; Protocol Last Admin: 05/30/18 11:03 Dose: 10 mcg/kg/min, 16.32 mls/hr Vasopressin 50 units/ Sodium (Chloride) 100 mls @ 4 mls/hr IVPB ASDIR [facility]; Protocol Last Titration: 05/30/18 09:40 Dose: 6 units/hr, 12 mls/hr Norepinephrine Bitartrate 8, (000 mcg/ Dextrose) 500 mls @ 18.75 mls/hr IV TITR [facility]; Protocol Last Titration: 05/30/18 05:30 Dose: 20 mcg/min, 75 mls/hr Phenylephrine HCl 20,000 mcg/ (Sodium Chloride) 250 mls @ 75 mls/hr IVPB ASDIR [facility]; Protocol Last Titration: 05/29/18 23:36 Dose: 0 mcg/min, 0 mls/hr Magnesium Sulfate/Dextrose 1 (gm/ Miscellaneous) 100 mls @ 100 mls/hr IVPB ONCE ONE Stop: 05/30/18 11:54 Sodium Bicarbonate 100 meq/ (Sodium Chloride) 1,100 mls @ 100 mls/hr IV ASDIR [facility] Mirtazapine (Remeron -) 15 mg GT DAILY [facility] Last Admin: 05/30/18 10:00 Dose: 15 mg Mupirocin (Bactroban Ointment (For Decolonization) -) 1 applic NS BID [facility] Stop: 06/02/18 21:59 Last Admin: 05/30/18 09:52 Dose: 1 applic Pantoprazole Sodium (Protonix Iv) 40 mg IVPUSH BID [facility] Raltegravir (Isentress -) 400 mg PO BID [facility] Last Admin: 05/30/18 09:55 Dose: 400 mg Sertraline HCl (Zoloft -) 50 mg GT DAILY@0700 [facility] Last Admin: 05/30/18 06:02 Dose: 50 mg Vancomycin HCl (Vancomycin Oral Solution) 125 mg PO Q6HPO [facility] Last Admin: 05/30/18 06:02 Dose: 125 mg ASSESSMENT AND PLAN: Acute Hypoxic Respiratory Failure Pneumonia ARDS Gram Negative Bacteremia Severe Sepsis Leukopenia Acute Kidney Injury Lactic Acidosis Thrombocytopenia r/o DIC HIV/AIDS COPD h/o Laryngeal Ca s/p tracheostomy - continue antibiotics per ID - f/u cultures - change bicarb gtt to saline - monitor urine output, creatinine - taper pressors to maintain MAP >65 - trend lactate - low tidal volume ventilation 6cc/kg/IBW - keep Pplat <30 - taper FiO2, PEEP to keep SpO2 >90% - allow permissive hypercapnea - send coags, fibrinogen level - hold all sedation to assess mental status - DVT/GI prophylaxis - continue ICU monitoring - prognosis guarded critical care time spent in reviewing chart, evaluating patient and formulating plan 35 min
--- NOTE | 2018-05-30 11:24 | PN ---
Progress Note, Physician History of Present Illness: Unresponsive on ventilator Hypotensive on pressors BC LF - Current Medication List Current Medications: Active Medications Acetaminophen (Tylenol -) 650 mg PO Q6H PRN PRN Reason: FEVER Acetylcysteine (Mucomyst 20 Oral / Inh Use Only*) 200 mg NEB Q4H PRN PRN Reason: COUGH Albuterol Sulfate (Ventolin 0.083% Nebulizer Soln -) 1 amp NEB Q4H PRN PRN Reason: SHORT OF BREATH/WHEEZING Albuterol/Ipratropium (Duoneb -) 1 amp NEB RQID [facility] Last Admin: 05/30/18 08:23 Dose: 1 amp Artificial Tears (Lacri-Lube Eye Ointment -) 1 applic OU HS PRN PRN Reason: DRY EYES Last Admin: 05/30/18 10:08 Dose: 1 applic Budesonide/Formoterol Fumarate (Symbicort 160/4.5mcg -) 2 puff IH BID [facility] Last Admin: 05/30/18 10:03 Dose: Not Given Chlorhexidine Gluconate (Hibiclens For Decolonization -) 1 applic TP HS [facility] Last Admin: 05/29/18 22:24 Dose: 1 applic Emtricitabine/Tenofovir (Truvada) 1 tab PO DAILY [facility] Last Admin: 05/30/18 09:55 Dose: 1 tab Etravirine (Intelence -) 100 mg PO BID [facility] Last Admin: 05/30/18 09:54 Dose: 100 mg Gabapentin (Neurontin Oral Liquid -) 250 mg PO BID [facility] Last Admin: 05/30/18 10:25 Dose: 250 mg Heparin Sodium (Porcine) (Heparin -) 5,000 unit SQ BID [facility] Last Admin: 05/30/18 09:53 Dose: 5,000 unit Hydrocortisone Sodium Succinate (Solu-Cortef -) 100 mg IVPUSH Q8H-IV [facility] Last Admin: 05/30/18 10:00 Dose: 100 mg Fentanyl 500 mcg/ Dextrose 100 mls @ 10 mls/hr IVPB TITR [facility]; Protocol Last Titration: 05/29/18 17:40 Dose: 0 mcg/hr, 0 mls/hr Propofol (Diprivan -) 1,000,000 mcg in 100 mls @ 1.306 mls/hr IVPB TITR [facility]; Protocol Last Admin: 05/29/18 11:10 Dose: 15 mcg/kg/min, 3.919 mls/hr Meropenem 1 gm/ Dextrose 100 mls @ 200 mls/hr IVPB Q8H-IV [facility] Last Admin: 05/30/18 09:58 Dose: 200 mls/hr Vancomycin HCl (Vancomycin (Pre-Docked)) 1,000 mg in 250 mls @ 166.667 mls/hr IVPB Q12H [facility]; Protocol Last Admin: 05/30/18 02:37 Dose: 166.667 mls/hr Sodium Chloride (Normal Saline -) 1,000 mls @ 150 mls/hr IV ASDIR [facility] Last Admin: 05/29/18 16:30 Dose: 150 mls/hr Epinephrine 1,000 mcg/ (Dextrose) 250 mls @ 65.31 mls/hr IVPB ASDIR [facility]; Protocol Last Admin: 05/29/18 20:00 Dose: Not Given Dopamine HCl 400,000 mcg/ (Sodium Chloride) 250 mls @ 3.26 mls/hr IV TITR [facility]; Protocol Last Admin: 05/30/18 11:03 Dose: 10 mcg/kg/min, 16.32 mls/hr Vasopressin 50 units/ Sodium (Chloride) 100 mls @ 4 mls/hr IVPB ASDIR [facility]; Protocol Last Titration: 05/30/18 09:40 Dose: 6 units/hr, 12 mls/hr Norepinephrine Bitartrate 8, (000 mcg/ Dextrose) 500 mls @ 18.75 mls/hr IV TITR [facility]; Protocol Last Titration: 05/30/18 05:30 Dose: 20 mcg/min, 75 mls/hr Phenylephrine HCl 20,000 mcg/ (Sodium Chloride) 250 mls @ 75 mls/hr IVPB ASDIR [facility]; Protocol Last Titration: 05/29/18 23:36 Dose: 0 mcg/min, 0 mls/hr Magnesium Sulfate/Dextrose 1 (gm/ Miscellaneous) 100 mls @ 100 mls/hr IVPB ONCE ONE Stop: 05/30/18 11:54 Sodium Bicarbonate 100 meq/ (Sodium Chloride) 1,100 mls @ 100 mls/hr IV ASDIR [facility] Mirtazapine (Remeron -) 15 mg GT DAILY [facility] Last Admin: 05/30/18 10:00 Dose: 15 mg Mupirocin (Bactroban Ointment (For Decolonization) -) 1 applic NS BID [facility] Stop: 06/02/18 21:59 Last Admin: 05/30/18 09:52 Dose: 1 applic Pantoprazole Sodium (Protonix Iv) 40 mg IVPUSH BID [facility] Raltegravir (Isentress -) 400 mg PO BID [facility] Last Admin: 05/30/18 09:55 Dose: 400 mg Sertraline HCl (Zoloft -) 50 mg GT DAILY@0700 [facility] Last Admin: 05/30/18 06:02 Dose: 50 mg Vancomycin HCl (Vancomycin Oral Solution) 125 mg PO Q6HPO [facility] Last Admin: 05/30/18 06:02 Dose: 125 mg - Objective Vital Signs: Vital Signs Temperature 99.9 F H 05/30/18 06:00 Pulse Rate 116 H 05/30/18 06:00 Respiratory Rate 28 H 05/30/18 09:46 Blood Pressure 103/81 05/30/18 06:00 O2 Sat by Pulse Oximetry (%) 91 L 05/29/18 21:30 Constitutional: Yes: No Distress, Cachectic Cardiovascular: Yes: Regular Rate and Rhythm, S1, S2 Respiratory: Yes: Mechanically Ventilated Gastrointestinal: Yes: Normal Bowel Sounds, Soft. No: Tenderness Edema: No Labs: CBC, BMP 05/30/18 05:30 05/30/18 05:30 INR, PTT INR 1.17 (0.83-1.09) H 05/28/18 13:53 Assessment/Plan Septic shock Gram Negative bacteremia Respiratory failure Pneumonia Thrombocytopenia Azotemia Await BC Continue empiric meropenem Hemodynamic/ ventilatory support Prognosis poor
[2018-05-30] MEDS ORDERED: MAGNESIUM 1GM/D5W - 1 GM/100 ML IVPB IVPB ONE (12:00)
[2018-05-30] MEDS: PROPOFOL 1,000,000 MCG/100 ML VIAL IVPB SCH (12:26)
[2018-05-30] MEDS: NOREPINEPHRINE BITARTRATE 8,000 MCG in DEXTROSE 5%-WATER - 492 ML IV SCH ×2 (12:30→23:58)
[2018-05-30] MEDS: PANTOPRAZOLE SODIUM 40 MG VIAL IVPUSH SCH ×2 (12:34→22:00)
[2018-05-30] MEDS ORDERED: VASOPRESSIN 20 UNITS/ML VIAL IV ONE ×2 (13:14→23:42)
[2018-05-30] MEDS: FENTANYL INJECTION 500 MCG in DEXTROSE 5%-WATER - 90 ML IVPB SCH (13:30)
[2018-05-30] MEDS: VASOPRESSIN 50 UNITS in SODIUM CHLORIDE 97.5 ML IVPB SCH ×2 (13:33→23:57)
--- NOTE | 2018-05-30 14:03 | EKG ---
Test Reason : Blood Pressure : / mmHG Vent. Rate : 131 BPM Atrial Rate : 131 BPM P-R Int : 118 ms QRS Dur : 084 ms QT Int : 316 ms P-R-T Axes : 085 072 074 degrees QTc Int : 466 ms SINUS TACHYCARDIA LOW VOLTAGE QRS BORDERLINE ECG WHEN COMPARED WITH ECG OF 28-MAY-2018 13:38, NO SIGNIFICANT CHANGE WAS FOUND Confirmed by MD Marlena, Colton ([id number]) on 05/30/2018 2:03:00 PM Referred By: Olivia BAKER Confirmed By:Colton Mendiola MD
[2018-05-30 14:52] VITALS: BMI 18.1
--- NOTE | 2018-05-30 14:56 | PN ---
Physical Exam: SUBJECTIVE: Patient seen and examined at bed side this morning. Sedated and Intubated. Settings @ A/C: 26/300/100/15. Fio2 was lowered to 80's but saturation dropped to mid 80's so Fio2 put back to 100. On Norepi:20; Dopa:20; Vaso:4 Units I/O [id number] Had one episode of bilious vomiting this morning with water bowel movement. OBJECTIVE: Vital Signs Period Temp Pulse Resp BP Sys/Lisa Pulse Ox Last 24 Hr 99 F-101.1 F 105-138 26-36 80-133/42-104 91-95 GENERAL: Intubated. EYES: Pupils reacting sluggish to light, No pallor or icterus. ENT: Dry mucous membranes. LUNGS: B/L scattered rhonchi, no wheeze. HEART: Tachycardic, Regular rhythm, systolic murmur. ABDOMEN: Soft, nontender, nondistended, normoactive bowel sounds, peg tube EXTREMITIES: 2+ pulses NEURO: Intubated. Laboratory Results - last 24 hr 05/29/18 05/29/18 05/29/18 15:12 15:40 18:00 WBC RBC Hgb Hct MCV MCH MCHC RDW Plt Count MPV Absolute Neuts (auto) Neutrophils % Neutrophils % (Manual) Band Neutrophils % Lymphocytes % Lymphocytes % (Manual) Monocytes % Monocytes % (Manual) Eosinophils % Eosinophils % (Manual) Basophils % Basophils % (Manual) Myelocytes % (Man) Promyelocytes % (Man) Blast Cells % (Manual) Nucleated RBC % Metamyelocytes Hypochromia Platelet Estimate Polychromasia Poikilocytosis Anisocytosis Microcytosis Macrocytosis Fibrinogen Anticoagulation Therapy Puncture Site Right radial Right radial ABG pH 7.24 L* D 7.06 L* D ABG pCO2 at Pt Temp 50.6 H 67.1 H* D ABG pO2 at Pt Temp 86.2 D 83.0 ABG HCO3 20.7 L 18.2 L ABG O2 Sat (Measured) 94.9 90.9 ABG O2 Content 14.2 L 12.8 L ABG Base Excess -6.3 L -12.1 L* Aureliano Test No Result Required. No Result Required. O2 Delivery Device Oxygen Flow Rate Yes F1o2 100% Vent Mode Vent Rate 20 Mechanical Rate Tv300 PEEP 15.0 Pressure Support Vent Sodium Potassium Chloride Carbon Dioxide Anion Gap BUN Creatinine Creat Clearance w eGFR Random Glucose Lactic Acid 2.6 H* Calcium Phosphorus Magnesium Total Bilirubin AST ALT Alkaline Phosphatase Total Protein Albumin 05/29/18 05/29/18 05/29/18 18:00 18:00 18:24 WBC 8.7 RBC 3.54 L Hgb 11.0 Hct 35.5 MCV 100.3 H MCH 31.2 MCHC 31.1 L RDW 16.4 H Plt Count 97 L D MPV 10.1 D Absolute Neuts (auto) 6.4 Neutrophils % 73.8 Neutrophils % (Manual) 54.0 Band Neutrophils % 4.0 Lymphocytes % 19.4 D Lymphocytes % (Manual) 15.0 D Monocytes % 0.9 L Monocytes % (Manual) 7 Eosinophils % 5.9 H D Eosinophils % (Manual) 1.0 D Basophils % 0.0 Basophils % (Manual) 9.0 H* Myelocytes % (Man) 0 D Promyelocytes % (Man) 0 Blast Cells % (Manual) 1 H D Nucleated RBC % 1 H Metamyelocytes 1 D Hypochromia 0 Platelet Estimate Decreased Polychromasia 0 Poikilocytosis 0 Anisocytosis 0 Microcytosis 0 Macrocytosis 0 Fibrinogen Anticoagulation Therapy Puncture Site ABG pH ABG pCO2 at Pt Temp ABG pO2 at Pt Temp ABG HCO3 ABG O2 Sat (Measured) ABG O2 Content ABG Base Excess Aureliano Test O2 Delivery Device Oxygen Flow Rate Vent Mode Vent Rate Mechanical Rate PEEP Pressure Support Vent Sodium 149 H Potassium 4.5 Chloride 116 H Carbon Dioxide 21 Anion Gap 13 BUN 44 H Creatinine 1.1 Creat Clearance w eGFR 52.79 Random Glucose 74 Lactic Acid 7.5 H* Calcium 7.0 L Phosphorus 6.3 H Magnesium 2.3 Total Bilirubin 0.5 AST 50 H ALT 16 Alkaline Phosphatase 98 Total Protein 4.6 L Albumin 1.7 L 05/29/18 05/29/18 05/30/18 21:00 23:20 05:30 WBC 17.3 H RBC 2.93 L Hgb 8.9 L Hct 28.8 L D MCV 98.2 H MCH 30.4 MCHC 30.9 L RDW 15.9 H Plt Count 51 L D MPV 9.1 Absolute Neuts (auto) 16.3 H Neutrophils % 94.3 H D Neutrophils % (Manual) 62.0 Band Neutrophils % 19.0 Lymphocytes % 3.7 L D Lymphocytes % (Manual) 4.0 L D Monocytes % 0.7 L Monocytes % (Manual) 7 Eosinophils % 1.2 Eosinophils % (Manual) 0.0 D Basophils % 0.1 D Basophils % (Manual) 2.0 Myelocytes % (Man) 0 Promyelocytes % (Man) 1 D Blast Cells % (Manual) 0 D Nucleated RBC % 0 Metamyelocytes 4 H D Hypochromia 2+ Platelet Estimate Decreased Polychromasia 0 Poikilocytosis 0 Anisocytosis 2+ Microcytosis 0 Macrocytosis 0 Fibrinogen Anticoagulation Therapy No Result Required. Puncture Site No Result Required. ABG pH 7.18 L* ABG pCO2 at Pt Temp 56.8 H ABG pO2 at Pt Temp 79.9 L ABG HCO3 20.5 L ABG O2 Sat (Measured) 93.6 ABG O2 Content 11.1 L ABG Base Excess -7.3 L Aureliano Test No Result Required. O2 Delivery Device Vent Oxygen Flow Rate 100% Vent Mode No Result Required. Vent Rate 28 Mechanical Rate No Result Required. PEEP 15.0 Pressure Support Vent 300 Sodium Potassium Chloride Carbon Dioxide Anion Gap BUN Creatinine Creat Clearance w eGFR Random Glucose Lactic Acid 5.5 H* Calcium Phosphorus Magnesium Total Bilirubin AST ALT Alkaline Phosphatase Total Protein Albumin 05/30/18 05/30/18 05/30/18 05:30 06:00 11:20 WBC RBC Hgb Hct MCV MCH MCHC RDW Plt Count MPV Absolute Neuts (auto) Neutrophils % Neutrophils % (Manual) Band Neutrophils % Lymphocytes % Lymphocytes % (Manual) Monocytes % Monocytes % (Manual) Eosinophils % Eosinophils % (Manual) Basophils % Basophils % (Manual) Myelocytes % (Man) Promyelocytes % (Man) Blast Cells % (Manual) Nucleated RBC % Metamyelocytes Hypochromia Platelet Estimate Polychromasia Poikilocytosis Anisocytosis Microcytosis Macrocytosis Fibrinogen 737.0 H Anticoagulation Therapy No Result Required. Puncture Site Arterial line ABG pH 7.23 L* ABG pCO2 at Pt Temp 61.3 H* ABG pO2 at Pt Temp 89.7 ABG HCO3 24.6 ABG O2 Sat (Measured) 96.0 ABG O2 Content 12.5 L ABG Base Excess -2.9 L Aureliano Test No Result Required. O2 Delivery Device Vent Oxygen Flow Rate 100% Vent Mode No Result Required. Vent Rate 28 Mechanical Rate No Result Required. PEEP 15.0 Pressure Support Vent 300 Sodium 141 Potassium 4.1 Chloride 102 Carbon Dioxide 27 Anion Gap 12 BUN 43 H Creatinine 1.5 H Creat Clearance w eGFR 36.91 Random Glucose 312 H* Lactic Acid Calcium 5.9 L* Phosphorus 5.4 H Magnesium 1.9 Total Bilirubin 0.6 AST 53 H ALT 20 Alkaline Phosphatase 107 Total Protein 4.2 L Albumin 1.4 L Active Medications Generic Name Dose Route Start Last Admin Trade Name Freq PRN Reason Stop Dose Admin Acetaminophen 650 mg 05/28/18 21:35 Tylenol - PO Q6H PRN FEVER Acetylcysteine 200 mg 05/28/18 21:52 Mucomyst 20 Oral / Inh Use Only* NEB Q4H PRN COUGH Albuterol Sulfate 1 amp 05/28/18 21:35 Ventolin 0.083% Nebulizer Soln - NEB Q4H PRN SHORT OF BREATH/WHEEZING Albuterol/Ipratropium 1 amp 05/29/18 08:00 05/30/18 11:46 Duoneb - NEB 1 amp RQID RAZ Administration Artificial Tears 1 applic 05/30/18 02:00 05/30/18 10:08 Lacri-Lube Eye Ointment - OU 1 applic HS PRN Administration DRY EYES Budesonide/Formoterol Fumarate 2 puff 05/28/18 22:00 05/30/18 10:03 Symbicort 160/4.5mcg - IH Not Given BID RAZ Chlorhexidine Gluconate 1 applic 05/28/18 22:00 05/29/18 22:24 Hibiclens For Decolonization - TP 1 applic HS RAZ Administration Emtricitabine/Tenofovir 1 tab 05/29/18 10:00 05/30/18 09:55 Truvada PO 1 tab DAILY RAZ Administration Etravirine 100 mg 05/28/18 22:00 05/30/18 09:54 Intelence - PO 100 mg BID RAZ Administration Gabapentin 250 mg 05/28/18 22:00 05/30/18 10:25 Neurontin Oral Liquid - PO 250 mg BID RAZ Administration Heparin Sodium (Porcine) 5,000 unit 05/28/18 22:00 05/30/18 09:53 Heparin - SQ 5,000 unit BID RAZ Administration Hydrocortisone Sodium Succinate 100 mg 05/29/18 19:30 10/28/18 10:00 Solu-Cortef - IVPUSH 100 mg Q8H-IV RAZ Administration Fentanyl 500 mcg/ Dextrose 100 mls @ 10 mls/hr 05/29/18 12:00 05/30/18 13:30 IVPB Not Given TITR RAZ Protocol 50 MCG/HR Meropenem 1 gm/ Dextrose 100 mls @ 200 mls/hr 05/29/18 11:45 05/30/18 09:58 IVPB 200 mls/hr Q8H-IV RAZ Administration Vancomycin HCl 1,000 mg in 250 mls @ 166.667 mls/hr 05/29/18 15:23 05/30/18 02:37 Vancomycin (Pre-Docked) IVPB 166.667 mls/hr Q12H RAZ Administration Protocol Dopamine HCl 400,000 mcg/ 250 mls @ 3.26 mls/hr 05/29/18 20:30 05/30/18 11:03 Sodium Chloride IV 10 mcg/kg/min TITR RAZ 16.32 mls/hr Administration Protocol 2 MCG/KG/MIN Vasopressin 50 units/ Sodium 100 mls @ 4 mls/hr 05/29/18 20:30 05/30/18 13:33 Chloride IVPB 6 units/hr ASDIR RAZ 12 mls/hr Administration Protocol 2 UNITS/HR Norepinephrine Bitartrate 8, 500 mls @ 18.75 mls/hr 05/29/18 20:30 05/30/18 12:30 000 mcg/ Dextrose IV 20 mcg/min TITR RAZ 75 mls/hr Administration Protocol 5 MCG/MIN Sodium Bicarbonate 100 meq/ 1,100 mls @ 100 mls/hr 05/30/18 11:15 Sodium Chloride IV ASDIR RAZ Mirtazapine 15 mg 05/29/18 10:00 05/30/18 10:00 Remeron - GT 15 mg DAILY RAZ Administration Mupirocin 1 applic 05/28/18 22:00 05/30/18 09:52 Bactroban Ointment (For Decolonization) - NS 06/02/18 21:59 1 applic BID RAZ Administration Pantoprazole Sodium 40 mg 05/30/18 12:00 05/30/18 12:34 Protonix Iv IVPUSH 40 mg BID RAZ Administration Raltegravir 400 mg 05/28/18 22:00 05/30/18 09:55 Isentress - PO 400 mg BID RAZ Administration Sertraline HCl 50 mg 05/29/18 07:00 05/30/18 06:02 Zoloft - GT 50 mg DAILY@0700 RAZ Administration Vancomycin HCl 125 mg 05/29/18 18:00 05/30/18 12:34 Vancomycin Oral Solution PO 125 mg Q6HPO RAZ Administration ASSESSMENT/PLAN: Pt is a 48 y/o F HIV/AIDS, laryngeal ca s/p tracheostomy, failure to thrive, PEG tube, Hep B, COPD, Asthma, positive C-diff (05/21) BIBA for SOB/increased mucus/fatigue for 7-10 days. She is admitted to ICU for acute hypoxic resp failure Coded three times in the ICU and now remains Intubated. PULM Acute hypoxic respiratory failure secondary to right lower lobe PNA Intubated Settings @ A/C: 26/300/100/15. Low tidal volume 6ml/kg with a high PEEP Continue IV Meropenem 1gm Q8H Day2 Albuterol PRN Duoneb QID ID Right lower lobe pneumonia with bacteremia (positive Kleb pneumonia) Repeat Blood cultures ordered for AM or if she spikes a temperature AIDS on HAART therapy Continue Truvada, Etravirine, Raltegravir Cardio Hypotensive on 3 pressors: Norepi:20; Dopa:decreased to 10; Vaso: increased to 6 Units Echo 04/20: Small pericardial effusion < 1cm GI Bilious vomiting and watery diarrhoea this morning Patient was treated for C. diff on 05/21/18; 05/30/2018: Positive c. diff Ag neg toxin Continue Continue PO Vancomycin Q6H Day 2 Renal SONAM creatinine 1.5 (baseline creatinine 1.1) IV fluids Avoid nephrotoxic drugs Ugarte in place FEN IV NS with sodium bicarb @ 100 mls/hr Electrolytes: Hypocalcemia 5.8, corrected calcium 8.5, repleted with IV Calcium gluconate NPO Prophylaxis For DVT: On Heparin 5000 IU sq BID For GI: IV Protonix Illness, Investigation and plan of care explained to the patient's and son at bedside. They verbalized understanding. Case seen and discussed with Dr. Hyman. Visit type - Emergency Visit Emergency Visit: Yes ED Registration Date: 05/28/18 Care time: The patient presented to the Emergency Department on the above date and was hospitalized for further evaluation of their emergent condition. - New Patient This patient is new to me today: No - Critical Care Critical Care patient: Yes Total Critical Care Time (in minutes): 35 Critical Care Statement: The care of this patient involved high complexity decision making to prevent further life threatening deterioration of the patient 's condition and/or to evaluate & treat vital organ system(s) failure or risk of failure. - Discharge Referral Referred to [facility] Med P.C.: No
[2018-05-30] MEDS ORDERED: SODIUM BICARBONATE IV SCH (18:52)
[2018-05-30] MEDS ORDERED: SODIUM CHLORIDE IV SCH (18:52)
[2018-05-30] MEDS: CHLORHEXIDINE GLUCONATE 4% CLEANSER FOR DECOLONIZATION TP SCH (22:00)
[2018-05-31] MEDS: DOPAMINE HCL 400,000 MCG in SODIUM CHLORIDE 240 ML IV SCH ×2 (00:05→22:00)
[2018-05-31] MEDS: BUDESONIDE/FORMETEROL FUMARATE 160/4.5 mcg INHALER IH SCH ×3 (00:08→21:46)
[2018-05-31] MEDS: MEROPENEM 1 GM in DEXTROSE 5%-WATER 100 ML IVPB SCH ×3 (02:42→17:07)
[2018-05-31] MEDS: HYDROCORTISONE SOD SUCCINATE 100 MG/2 ML VIAL IVPUSH SCH ×3 (02:45→17:14)
[2018-05-31] MEDS: VANCOMYCIN 1 GRAM (PRE-DOCKED) 1,000 MG/250 ML BAG IVPB SCH ×2 (02:45→15:18)
[2018-05-31] MEDS: VANCOMYCIN 250 MG/5 ML ORAL SOLUTION PO SCH ×4 (06:00→17:12)
[2018-05-31 06:06] LABS: EOS % 0.1 % (0-4.5); HEMATOCRIT 24.7 % (32.4-45.2); HEMOGLOBIN 7.9 GM/dL (10.7-15.3); LYMPH % 3.7 % (8-40); MCH 30.3 pg (25.7-33.7); MCHC 31.9 g/dl (32.0-36.0); MEAN PLT VOLUME 8.1 fl (7.5-11.1); MONO % 1.3 % (3.8-10.2); NEUT % 94.9 % (42.8-82.8); RDW 15.7 % (11.6-15.6); WHITE BLOOD COUNT 19.3 K/mm3 (4.0-10.0)
[2018-05-31 06:15] LABS: ALBUMIN 1.3 g/dl (3.4-5.0); ALK PHOS 99 U/L (45-117); ANION GAP 13 MMOL/L (8-16); BILIRUBIN,TOTAL 0.4 mg/dL (0.2-1); BLOOD UREA NITROGEN 48 mg/dL (7-18); CHLORIDE 93 mmol/L (98-107); CO2 30 mmol/L (21-32); CREATININE 1.5 mg/dL (0.55-1.3); GLUCOSE,RANDOM 182 mg/dL (74-106); MAGNESIUM 1.8 mg/dL (1.8-2.4); PHOSPHOROUS 3.6 mg/dL (2.5-4.9); POTASSIUM 3.4 mmol/L (3.5-5.1); SGOT/AST 45 U/L (15-37); SGPT/ALT 18 U/L (13-61); SODIUM 137 mmol/L (136-145); TOT PROT 4.3 g/dl (6.4-8.2)
[2018-05-31] MEDS ORDERED: DOPAMINE 400 MG/D5W - 400,000 MCG/250 ML INFUS.BAG IVPB ONE (06:37)
[2018-05-31 07:02] LABS: CALCIUM 6.1 mg/dL (8.5-10.1)
[2018-05-31] MEDS ORDERED: ACETAMINOPHEN 650 MG/20.3 ML ORAL SOLUTION (CUPS) NGT PRN (08:04)
[2018-05-31 08:05] LABS: PLATELET COUNT 17 K/MM3 (134-434)
[2018-05-31] MEDS ORDERED: VASOPRESSIN 20 UNITS/ML VIAL IV ONE ×2 (08:07→15:34)
[2018-05-31] MEDS: VASOPRESSIN 50 UNITS in SODIUM CHLORIDE 97.5 ML IVPB SCH ×3 (08:23→21:50)
[2018-05-31] MEDS: ALBUTEROL SO4 2.5/IPRATROPIUM 0.5 INH SOL 3 ML VIAL.NEB. NEB SCH ×4 (08:35→20:50)
[2018-05-31] MEDS ORDERED: PT OWN MED DRAWER 7, Y5N ONE ×7 (08:51→21:33)
[2018-05-31] MEDS: NOREPINEPHRINE BITARTRATE 8,000 MCG in DEXTROSE 5%-WATER - 492 ML IV SCH ×3 (08:53→19:30)
[2018-05-31] MEDS ORDERED: TENOFOVIR DISOPROXIL FUMARATE 300 MG TABLET PO SCH (10:00)
[2018-05-31] MEDS ORDERED: EMTRICITABINE 200 MG CAPSULE PO SCH ×2 (10:00→10:26)
--- NOTE | 2018-05-31 10:05 | ECHO ---
Name: LILIYA GLEZ Exam:Adult Echocardiogram Study Date: 05/31/2018 08:54 AM Age: 48 yrs Reason For Study: Pericardial Effusion Height: 61 in Weight: 96 lb BSA: 1.4 m2 BP: 97/70 mmHg MMode/2D Measurements & Calculations IVSd: 0.72 cm Ao root diam: 3.1 cm LVIDd: 4.8 cm LA dimension: 3.5 cm LVIDs: 3.9 cm LVPWd: 0.92 cm EDV(Teich): 109.7 ml LVOT diam: 2.2 cm ESV(Teich): 65.0 ml TAPSE: 2.0 cm Doppler Measurements & Calculations Med Peak E' Gianni: 5.7 cm/sec Lat Peak E' Gianni: 4.5 cm/sec Procedure A complete two-dimensional transthoracic echocardiogram was performed (2D, M-mode, Doppler and color flow Doppler). Left Ventricle The left ventricle is normal in size. Left ventricular systolic function is low normal. Ejection Frac tion = 50-55%. Right Ventricle The right ventricle is normal size. The right ventricular systolic function is mildly reduced. Atria The left atrial size is normal. Right atrial size is normal. Mitral Valve There is mild mitral annular calcification. There is mild to moderate mitral regurgitation. Tricuspid Valve The tricuspid valve is normal in structure and function. There is mild to moderate tricuspid regurgit ation. Aortic Valve The aortic valve is normal in structure and function. No aortic regurgitation is present. Pulmonic Valve The pulmonic valve is not well visualized. Mild pulmonic valvular regurgitation. Great Vessels The aortic root is normal size. Pericardium/Pleura Moderate pericardial effusion (1-2 cm). There are no echocardiographic indications of cardiac tampona de. There is a pleural effusion present. Interpretation Summary The left ventricle is normal in size. Left ventricular systolic function is low normal. Ejection Fraction = 50-55%. The right ventricular systolic function is mildly reduced. The left atrial size is normal. Right atrial size is normal. There is mild mitral annular calcification. There is mild to moderate mitral regurgitation. There is mild to moderate tricuspid regurgitation. Mild pulmonic valvular regurgitation. Moderate pericardial effusion (1-2 cm) There are no echocardiographic indications of cardiac tamponade. There is a pleural effusion present. Compared to study dated 04/12/18, amount of pericardial effusion appears increased Alfonzo Cui MD 05/31/2018 10:05 AM
[2018-05-31] MEDS: PANTOPRAZOLE SODIUM 40 MG VIAL IVPUSH SCH ×2 (10:17→22:00)
[2018-05-31] MEDS: MUPIROCIN 2% TOPICAL OINTMENT FOR DECOLONIZATION NS SCH ×2 (10:18→22:01)
[2018-05-31 10:27] LABS: HEMATOCRIT 23.7 % (32.4-45.2); HEMOGLOBIN 7.6 GM/dL (10.7-15.3); LYMPH % 4.6 % (8-40); MCH 30.4 pg (25.7-33.7); MCHC 32.3 g/dl (32.0-36.0); MEAN CELL VOLUME 94.3 fl (80-96); MEAN PLT VOLUME 8.7 fl (7.5-11.1); MONO % 1.6 % (3.8-10.2); NEUT % 93.8 % (42.8-82.8); RBC 2.51 M/mm3 (3.60-5.2); RDW 15.9 % (11.6-15.6); WHITE BLOOD COUNT 16.3 K/mm3 (4.0-10.0)
[2018-05-31 10:32] LABS: PLATELET COUNT 15 K/MM3 (134-434)
[2018-05-31 10:58] LABS: INR 1.15 (0.83-1.09); PROTHROMBIN TIME (PATIENT) 13.6 SEC (9.7-13.0)
[2018-05-31 11:00] LABS: ACTIVATED PTT 33.3 SECONDS (25.2-36.5)
[2018-05-31 11:08] LABS: ARTERIAL BLD GAS O2 SATURATION 99.2 % (90-98.9); ARTERIAL BLOOD GAS pH 7.42 (7.35-7.45)
[2018-05-31] MEDS ORDERED: ACETAMINOPHEN 1000 MG/100 ML VIAL (NON FORMULARY) IVPB ONE (11:09)
[2018-05-31 11:12] LABS: ALLENS TEST POSITIVE
[2018-05-31 11:20] LABS: ANISOCYTOSIS 2+; MACROCYTOSIS 0; OVALOCYTE 2+; PLATELET ESTIMATE DECREASED; TOXIC GRANULATION 2+
--- NOTE | 2018-05-31 11:31 | PN ---
Progress Note, Physician History of Present Illness: Unresponsive on ventilator Remains febrile Remains hypotensive on pressors WBC 16.3 Pit 15K BC Sensitive Klebsiella - Current Medication List Current Medications: Active Medications Acetaminophen (Tylenol Oral Solution -) 650 mg NGT Q4H PRN PRN Reason: FEVER Acetylcysteine (Mucomyst 20 Oral / Inh Use Only*) 200 mg NEB Q4H PRN PRN Reason: COUGH Albuterol Sulfate (Ventolin 0.083% Nebulizer Soln -) 1 amp NEB Q4H PRN PRN Reason: SHORT OF BREATH/WHEEZING Albuterol/Ipratropium (Duoneb -) 1 amp NEB RQID RAZ Last Admin: 05/31/18 08:35 Dose: 1 amp Artificial Tears (Lacri-Lube Eye Ointment -) 1 applic OU HS PRN PRN Reason: DRY EYES Last Admin: 05/30/18 10:08 Dose: 1 applic Artificial Tears (Artificial Tears) 1 drop OU BID PRN PRN Reason: DRY EYES Budesonide/Formoterol Fumarate (Symbicort 160/4.5mcg -) 2 puff IH BID RAZ Last Admin: 05/31/18 00:08 Dose: Not Given Chlorhexidine Gluconate (Hibiclens For Decolonization -) 1 applic TP HS RAZ Last Admin: 05/30/18 22:00 Dose: 1 applic Emtricitabine (Emtriva -) 200 mg PO DAILY@0800 RAZ Etravirine (Intelence -) 100 mg PO BID RAZ Last Admin: 05/30/18 22:00 Dose: 100 mg Gabapentin (Neurontin Oral Liquid -) 250 mg PO BID RAZ Last Admin: 05/30/18 22:00 Dose: 250 mg Hydrocortisone Sodium Succinate (Solu-Cortef -) 100 mg IVPUSH Q8H-IV RAZ Last Admin: 05/31/18 10:17 Dose: 100 mg Fentanyl 500 mcg/ Dextrose 100 mls @ 10 mls/hr IVPB TITR RAZ; Protocol Last Admin: 05/30/18 13:30 Dose: Not Given Meropenem 1 gm/ Dextrose 100 mls @ 200 mls/hr IVPB Q8H-IV RAZ Last Admin: 05/31/18 10:17 Dose: 200 mls/hr Vancomycin HCl (Vancomycin (Pre-Docked)) 1,000 mg in 250 mls @ 166.667 mls/hr IVPB Q12H RAZ; Protocol Last Admin: 05/31/18 02:45 Dose: 166.667 mls/hr Dopamine HCl 400,000 mcg/ (Sodium Chloride) 250 mls @ 3.26 mls/hr IV TITR RAZ; Protocol Last Titration: 05/31/18 07:30 Dose: 6 mcg/kg/min, 9.79 mls/hr Vasopressin 50 units/ Sodium (Chloride) 100 mls @ 4 mls/hr IVPB ASDIR RAZ; Protocol Last Admin: 05/31/18 08:23 Dose: 6 units/hr, 12 mls/hr Norepinephrine Bitartrate 8, (000 mcg/ Dextrose) 500 mls @ 18.75 mls/hr IV TITR RAZ; Protocol Last Admin: 05/31/18 08:53 Dose: 20 mcg/min, 75 mls/hr Potassium Chloride (Potassium Chloride 10 Meq Premix Ivpb -) 10 meq in 100 mls @ 100 mls/hr IVPB Q60M RAZ Stop: 05/31/18 13:29 Sodium Chloride (Normal Saline -) 1,000 mls @ 100 mls/hr IV ASDIR RAZ Mirtazapine (Remeron -) 15 mg GT DAILY [facility] Last Admin: 05/30/18 10:00 Dose: 15 mg Mupirocin (Bactroban Ointment (For Decolonization) -) 1 applic NS BID [facility] Stop: 06/02/18 21:59 Last Admin: 05/31/18 10:18 Dose: 1 applic Pantoprazole Sodium (Protonix Iv) 40 mg IVPUSH BID [facility] Last Admin: 05/31/18 10:17 Dose: 40 mg Raltegravir (Isentress -) 400 mg PO BID [facility] Last Admin: 05/30/18 22:00 Dose: 400 mg Sertraline HCl (Zoloft -) 50 mg GT DAILY@0700 [facility] Last Admin: 05/30/18 06:02 Dose: 50 mg Tenofovir Disoproxil Fumarate (Viread -) 300 mg PO DAILY@0800 [facility] Vancomycin HCl (Vancomycin Oral Solution) 125 mg PO Q6HPO [facility] Last Admin: 05/31/18 06:00 Dose: 125 mg - Objective Vital Signs: Vital Signs Temperature 102.9 F H 05/31/18 11:03 Pulse Rate 113 H 05/31/18 11:03 Respiratory Rate 28 H 05/31/18 11:03 Blood Pressure 98/75 05/31/18 11:03 O2 Sat by Pulse Oximetry (%) 95 05/30/18 21:00 Constitutional: Yes: No Distress Eyes: Yes: Conjunctiva Clear Cardiovascular: Yes: Regular Rate and Rhythm, Tachycardia, S1, S2 Respiratory: Yes: Mechanically Ventilated Gastrointestinal: Yes: Normal Bowel Sounds, Soft. No: Tenderness Labs: CBC, BMP 05/31/18 10:00 05/31/18 05:30 INR, PTT INR 1.15 (0.83-1.09) H 05/31/18 10:00 Fibrinogen 583.0 mg/dL (238-498) H D 05/31/18 08:17 Assessment/Plan Septic shock Gram Negative bacteremia Respiratory failure Pneumonia Thrombocytopenia Azotemia Continue meropenem Hemodynamic/ ventilatory support Prognosis poor
[2018-05-31] MEDS: SODIUM CHLORIDE 1,000 ML IV SCH (11:42)
--- NOTE | 2018-05-31 12:11 | PN ---
Progress Note, Physician History of Present Illness: Pt is a 48yo f with PMH of HIV/AIDS, laryngeal ca s/p tracheostomy, failure to thrive, PEG tube, HepB, COPD/Asthma (s/p thoracocentesis 04/2018); small amount pericardia effusion noted on two ECHOs , BIBA for vomiting, diarrhea, increased mucus production and cough and generalized weakness. Per , pt had a tooth infection 4 days ago on Thursday, went to the dentist, was given amoxicillin and "everything went downhill". Pt started becoming lethargic, vomiting, diarrhea, cough, SOB, increased mucus production, fevers. says fevers were on and off and would get as high as 104. Pt was recently d/c from the hospital for pneumonia on 04/26. She was d/c with PICC line (cefepime). PICC line was removed 1.5 weeks ago. She takes her medications daily (crushed through PEG). says pt CD4 counts are "fine" and viral load is undetectable. Pt complains of generalized abdominal pain as well. - Current Medication List Current Medications: Active Medications Acetaminophen (Tylenol Oral Solution -) 650 mg NGT Q4H PRN PRN Reason: FEVER Acetylcysteine (Mucomyst 20 Oral / Inh Use Only*) 200 mg NEB Q4H PRN PRN Reason: COUGH Albuterol Sulfate (Ventolin 0.083% Nebulizer Soln -) 1 amp NEB Q4H PRN PRN Reason: SHORT OF BREATH/WHEEZING Albuterol/Ipratropium (Duoneb -) 1 amp NEB RQID [facility] Last Admin: 05/31/18 11:53 Dose: 1 amp Artificial Tears (Lacri-Lube Eye Ointment -) 1 applic OU HS PRN PRN Reason: DRY EYES Last Admin: 05/30/18 10:08 Dose: 1 applic Artificial Tears (Artificial Tears) 1 drop OU BID PRN PRN Reason: DRY EYES Budesonide/Formoterol Fumarate (Symbicort 160/4.5mcg -) 2 puff IH BID [facility] Last Admin: 05/31/18 00:08 Dose: Not Given Chlorhexidine Gluconate (Hibiclens For Decolonization -) 1 applic TP HS [facility] Last Admin: 05/30/18 22:00 Dose: 1 applic Emtricitabine (Emtriva -) 200 mg PO DAILY@0800 [facility] Etravirine (Intelence -) 100 mg PO BID [facility] Last Admin: 05/30/18 22:00 Dose: 100 mg Gabapentin (Neurontin Oral Liquid -) 250 mg PO BID [facility] Last Admin: 05/30/18 22:00 Dose: 250 mg Hydrocortisone Sodium Succinate (Solu-Cortef -) 100 mg IVPUSH Q8H-IV [facility]Z Last Admin: 05/31/18 10:17 Dose: 100 mg Fentanyl 500 mcg/ Dextrose 100 mls @ 10 mls/hr IVPB TITR RAZ; Protocol Last Admin: 05/30/18 13:30 Dose: Not Given Meropenem 1 gm/ Dextrose 100 mls @ 200 mls/hr IVPB Q8H-IV RAZ Last Admin: 05/31/18 10:17 Dose: 200 mls/hr Vancomycin HCl (Vancomycin (Pre-Docked)) 1,000 mg in 250 mls @ 166.667 mls/hr IVPB Q12H [facility]Z; Protocol Last Admin: 05/31/18 02:45 Dose: 166.667 mls/hr Dopamine HCl 400,000 mcg/ (Sodium Chloride) 250 mls @ 3.26 mls/hr IV TITR RAZ; Protocol Last Titration: 05/31/18 07:30 Dose: 6 mcg/kg/min, 9.79 mls/hr Vasopressin 50 units/ Sodium (Chloride) 100 mls @ 4 mls/hr IVPB ASDIR RAZ; Protocol Last Admin: 05/31/18 08:23 Dose: 6 units/hr, 12 mls/hr Norepinephrine Bitartrate 8, (000 mcg/ Dextrose) 500 mls @ 18.75 mls/hr IV TITR RAZ; Protocol Last Admin: 05/31/18 08:53 Dose: 20 mcg/min, 75 mls/hr Potassium Chloride (Potassium Chloride 10 Meq Premix Ivpb -) 10 meq in 100 mls @ 100 mls/hr IVPB Q60M [facility] Stop: 05/31/18 13:29 Sodium Chloride (Normal Saline -) 1,000 mls @ 100 mls/hr IV ASDIR RAZ Last Admin: 05/31/18 11:42 Dose: 100 mls/hr Mirtazapine (Remeron -) 15 mg GT DAILY [facility] Last Admin: 05/30/18 10:00 Dose: 15 mg Mupirocin (Bactroban Ointment (For Decolonization) -) 1 applic NS BID [facility] Stop: 06/02/18 21:59 Last Admin: 05/31/18 10:18 Dose: 1 applic Pantoprazole Sodium (Protonix Iv) 40 mg IVPUSH BID [facility] Last Admin: 05/31/18 10:17 Dose: 40 mg Raltegravir (Isentress -) 400 mg PO BID [facility] Last Admin: 05/30/18 22:00 Dose: 400 mg Sertraline HCl (Zoloft -) 50 mg GT DAILY@0700 [facility] Last Admin: 05/30/18 06:02 Dose: 50 mg Tenofovir Disoproxil Fumarate (Viread -) 300 mg PO DAILY@0800 [facility] Vancomycin HCl (Vancomycin Oral Solution) 125 mg PO Q6HPO [facility] Last Admin: 05/31/18 06:00 Dose: 125 mg - Objective Vital Signs: Vital Signs Temperature 103 F H 05/31/18 12:03 Pulse Rate 114 H 05/31/18 12:03 Respiratory Rate 28 H 05/31/18 12:03 Blood Pressure 111/78 05/31/18 12:03 O2 Sat by Pulse Oximetry (%) 95 05/30/18 21:00 Eyes: Yes: WNL, Conjunctiva Clear, EOM Intact HENT: Yes: WNL, Atraumatic, Normocephalic Neck: Yes: WNL, Supple, Trachea Midline Cardiovascular: Yes: WNL, Regular Rate and Rhythm Respiratory: Yes: Mechanically Ventilated Gastrointestinal: Yes: WNL, Normal Bowel Sounds Genitourinary: Yes: WNL Musculoskeletal: Yes: WNL Extremities: Yes: WNL Edema: No Integumentary: Yes: WNL Neurological: Yes: Lethargy ...Motor Strength: WNL Psychiatric: Yes: WNL Labs: CBC, BMP 05/31/18 10:00 05/31/18 05:30 INR, PTT INR 1.15 (0.83-1.09) H 05/31/18 10:00 Fibrinogen 583.0 mg/dL (238-498) H D 05/31/18 08:17 Assessment/Plan - Problems (1) Leukopenia Assessment/Plan: initially normal WBC-->leukopenia-->now leukocytotic On antibiotics. F/u with ID Code(s): D72.819 - DECREASED WHITE BLOOD CELL COUNT, UNSPECIFIED (2) Pneumonia Assessment/Plan: antibiotics per ID. Code(s): J18.9 - PNEUMONIA, UNSPECIFIED ORGANISM Qualifiers: Pneumonia type: due to unspecified organism Laterality: right Lung location: lower lobe of lung Qualified Code(s): J18.1 - Lobar pneumonia, unspecified organism (3) Acute on chronic respiratory failure with hypoxia and hypercapnia Assessment/Plan: bronchodilators, steroids, antibiotics per floor cleaner. Code(s): J96.21 - ACUTE AND CHRONIC RESPIRATORY FAILURE WITH HYPOXIA; J96.22 - ACUTE AND CHRONIC RESPIRATORY FAILURE WITH HYPERCAPNIA (4) C. difficile diarrhea Assessment/Plan: hx C.difficile; f/u cultures. Code(s): A04.72 - ENTEROCOLITIS D/T CLOSTRIDIUM DIFFICILE, NOT SPCF RECUR (5) COPD (chronic obstructive pulmonary disease) Code(s): J44.9 - CHRONIC OBSTRUCTIVE PULMONARY DISEASE, UNSPECIFIED (6) Hyperthyroidism Assessment/Plan: TSH WNL. Code(s): E05.90 - THYROTOXICOSIS, UNSP WITHOUT THYROTOXIC CRISIS OR STORM (7) Pericardial effusion Assessment/Plan: F/u ECHO (small amount pericardial effusion 04/08/2018 was unchanged 04/12/2018) . Code(s): I31.3 - PERICARDIAL EFFUSION (NONINFLAMMATORY) (8) AIDS Code(s): B20 - HUMAN IMMUNODEFICIENCY VIRUS [HIV] DISEASE (9) Failure to thrive in adult Code(s): R62.7 - ADULT FAILURE TO THRIVE (10) Psychosocial stressors Code(s): Z65.8 - OTH PROBLEMS RELATED TO PSYCHOSOCIAL CIRCUMSTANCES (11) Tobacco dependence Code(s): F17.200 - NICOTINE DEPENDENCE, UNSPECIFIED, UNCOMPLICATED (12) Tracheostomy dependence Code(s): Z93.0 - TRACHEOSTOMY STATUS (13) Vitamin D deficiency Code(s): E55.9 - VITAMIN D DEFICIENCY, UNSPECIFIED (14) Tachycardia Assessment/Plan: sinus tachycardia. F/u HR (presently elevated; titrate off vasopressors as toleratd, beginning with lowering dose of dopamine) and BP. On IVF with Na HCO3. ECHO 04/08/2018: normal LVEF; small amount pericardial effusion, without evidence of tamponade. Code(s): R00.0 - TACHYCARDIA, UNSPECIFIED (15) Septic shock Assessment/Plan: IV fluids. Antibiotics per ID. Replete electrolytes: Keep K 4-4.5, Mg 2-2.4 (will give supplement IV Mg now), PO4 2.5-4.9. Serial BP and HR; now off phenylephrine. Titrate off dopamine, norepinephrine, and vasopresssin if pt stable and tolerates the reductions. Poor prognosis. Code(s): A41.9 - SEPSIS, UNSPECIFIED ORGANISM; R65.21 - SEVERE SEPSIS WITH SEPTIC SHOCK (16) Diastolic CHF Code(s): I50.30 - UNSPECIFIED DIASTOLIC (CONGESTIVE) HEART FAILURE cc time spent 37 min
[2018-05-31] MEDS ORDERED: EMTRICITABINE 200 MG CAPSULE GT SCH (12:22)
[2018-05-31 12:36] LABS: ACANTHOCYTES 1+; ANISOCYTOSIS 1+; MACROCYTOSIS 0; OVALOCYTE 1+; PLATELET ESTIMATE DECREASED; TEAR DROP CELLS 1+; TOXIC GRANULATION 1+
[2018-05-31] MEDS: KCL 10 MEQ IVPB 10 MEQ/100 ML INFUS.BAG IVPB SCH ×2 (13:12→14:17)
[2018-05-31] MEDS ORDERED: TENOFOVIR DISOPROXIL FUMARATE 300 MG TABLET GT SCH (13:18)
--- NOTE | 2018-05-31 13:28 | PN ---
Teaching Attending Note Name of Resident: Aliyah Whelan ATTENDING PHYSICIAN STATEMENT I saw and evaluated the patient. I reviewed the resident's note and discussed the case with the resident. I agree with the resident's findings and plan as documented. SUBJECTIVE: Pt seen and examined in the ICU. Vented on volume assist control 90% FiO2, PEEP 15. Remains on levophed, dopamine and vasopressin gtts. Febrile and thrombocytopenic. Unresponsive off sedation but initiating breaths. OBJECTIVE: Vital Signs Period Temp Pulse Resp BP Sys/Lisa Pulse Ox Last 24 Hr 98.0 F-103 F 101-118 28-110 98-129/70-95 95-97 Intake & Output 05/28/18 05/29/18 05/30/18 05/31/18 23:59 23:59 23:59 23:59 Intake Total 3100 6785 8010 1751 Output Total 696 778 6001 400 Balance 2440 6085 6410 1351 Weight 43.545 kg 43.545 kg 43.545 kg Gen: unresponsive, vented Heart: tachycardic, regular Lung: scattered rhonchi Abd: soft, nontender Ext: + edema CBC, BMP 05/31/18 10:00 05/31/18 05:30 Active Medications Acetaminophen (Tylenol Oral Solution -) 650 mg NGT Q4H PRN PRN Reason: FEVER Acetylcysteine (Mucomyst 20 Oral / Inh Use Only*) 200 mg NEB Q4H PRN PRN Reason: COUGH Albuterol Sulfate (Ventolin 0.083% Nebulizer Soln -) 1 amp NEB Q4H PRN PRN Reason: SHORT OF BREATH/WHEEZING Albuterol/Ipratropium (Duoneb -) 1 amp NEB RQID [facility] Last Admin: 05/31/18 11:53 Dose: 1 amp Artificial Tears (Lacri-Lube Eye Ointment -) 1 applic OU HS PRN PRN Reason: DRY EYES Last Admin: 05/30/18 10:08 Dose: 1 applic Artificial Tears (Artificial Tears) 1 drop OU BID PRN PRN Reason: DRY EYES Budesonide/Formoterol Fumarate (Symbicort 160/4.5mcg -) 2 puff IH BID [facility] Last Admin: 05/31/18 00:08 Dose: Not Given Chlorhexidine Gluconate (Hibiclens For Decolonization -) 1 applic TP HS [facility] Last Admin: 05/30/18 22:00 Dose: 1 applic Emtricitabine (Emtriva -) 200 mg GT DAILY@0800 [facility] Etravirine (Intelence -) 100 mg PO BID [facility] Last Admin: 05/30/18 22:00 Dose: 100 mg Gabapentin (Neurontin Oral Liquid -) 250 mg GT BID [facility] Hydrocortisone Sodium Succinate (Solu-Cortef -) 100 mg IVPUSH Q8H-IV [facility] Last Admin: 05/31/18 10:17 Dose: 100 mg Fentanyl 500 mcg/ Dextrose 100 mls @ 10 mls/hr IVPB TITR [facility]Z; Protocol Last Admin: 05/30/18 13:30 Dose: Not Given Meropenem 1 gm/ Dextrose 100 mls @ 200 mls/hr IVPB Q8H-IV [facility] Last Admin: 05/31/18 10:17 Dose: 200 mls/hr Vancomycin HCl (Vancomycin (Pre-Docked)) 1,000 mg in 250 mls @ 166.667 mls/hr IVPB Q12H [facility]Z; Protocol Last Admin: 05/31/18 02:45 Dose: 166.667 mls/hr Dopamine HCl 400,000 mcg/ (Sodium Chloride) 250 mls @ 3.26 mls/hr IV TITR RAZ; Protocol Last Titration: 05/31/18 07:30 Dose: 6 mcg/kg/min, 9.79 mls/hr Vasopressin 50 units/ Sodium (Chloride) 100 mls @ 4 mls/hr IVPB ASDIR RAZ; Protocol Last Admin: 05/31/18 08:23 Dose: 6 units/hr, 12 mls/hr Norepinephrine Bitartrate 8, (000 mcg/ Dextrose) 500 mls @ 18.75 mls/hr IV TITR RAZ; Protocol Last Admin: 05/31/18 08:53 Dose: 20 mcg/min, 75 mls/hr Potassium Chloride (Potassium Chloride 10 Meq Premix Ivpb -) 10 meq in 100 mls @ 100 mls/hr IVPB Q60M [facility] Stop: 05/31/18 13:29 Last Admin: 05/31/18 13:12 Dose: 100 mls/hr Sodium Chloride (Normal Saline -) 1,000 mls @ 100 mls/hr IV ASDIR [facility] Last Admin: 05/31/18 11:42 Dose: 100 mls/hr Mirtazapine (Remeron -) 15 mg GT DAILY [facility] Last Admin: 05/30/18 10:00 Dose: 15 mg Mupirocin (Bactroban Ointment (For Decolonization) -) 1 applic NS BID [facility] Stop: 06/02/18 21:59 Last Admin: 05/31/18 10:18 Dose: 1 applic Pantoprazole Sodium (Protonix Iv) 40 mg IVPUSH BID [facility] Last Admin: 05/31/18 10:17 Dose: 40 mg Raltegravir (Isentress -) 400 mg PO BID [facility] Last Admin: 05/30/18 22:00 Dose: 400 mg Sertraline HCl (Zoloft -) 50 mg GT DAILY@0700 [facility] Last Admin: 05/30/18 06:02 Dose: 50 mg Tenofovir Disoproxil Fumarate (Viread -) 300 mg GT DAILY@0800 [facility] Vancomycin HCl (Vancomycin Oral Solution) 125 mg PO Q6HPO [facility] Last Admin: 05/31/18 06:00 Dose: 125 mg ASSESSMENT AND PLAN: Acute Hypoxic Respiratory Failure Pneumonia ARDS Gram Negative Bacteremia Severe Sepsis Leukopenia Acute Kidney Injury Lactic Acidosis Thrombocytopenia r/o DIC HIV/AIDS COPD h/o Laryngeal Ca s/p tracheostomy - continue antibiotics per ID - f/u cultures - change bicarb gtt to saline - monitor urine output, creatinine - taper pressors to maintain MAP >65 - low tidal volume ventilation 6cc/kg/IBW - keep Pplat <30 - taper FiO2, PEEP to keep SpO2 >90% - allow permissive hypercapnea - send coags, fibrinogen level - transfuse platelets - change central line if platelets stable - hold all sedation to assess mental status - DVT/GI prophylaxis - continue ICU monitoring - prognosis guarded, discussed with at bedside critical care time spent in reviewing chart, evaluating patient and formulating plan 35 min
--- NOTE | 2018-05-31 13:55 | CONSULT ---
Consult Consult Specialty:: Heme/Onc Referred by:: ICU team Reason for Consultation:: Acute thrombocytopenia - History of Present Illness Chief Complaint: Thrombocytopenia History of Present Illness: 48F with multiple medical problems including a history of HIV/AIDS, laryngeal ca s/p tracheostomy, failure to thrive, PEG tube, HepB, COPD/Asthma, small amount pericardia effusion noted on two ECHOs , presents to the hospital for vomiting, diarrhea, productive cough despite being on ABx, and generalized weakness. Per the chart the patient was having fevers as high as 104. Patient started to decline per the and started to get lethargic. Patient and her called Dr. Messer's office last week and she was told to come to the hospital. She was recently treated with cefepime for klebsiella bacteremia last month. Hematology consulted for acute drop in platelets. Platelets went from 259K to 15K in three days. Patient is intubated but RN and ICU team denies bleeding. hemoglobin went from 10.3 to 7.6 although the usually is 8-9 at baseline recently and suspect a higher Hb initially was from volume depletion from sepsis. MCV is currently WNL although it was as high as 100 on this admission. Patient has not been transfused on this admission so far. - History Source History Provided By: Medical Record Limitations to Obtaining History: Intubated - Past Medical History Cardio/Vascular: Yes: CHF Pulmonary: Yes: Asthma, Cancer (laryngeal), COPD, Other (vocal cord mass) Hepatobiliary: Yes: Hepatitis B ...LMP: 05/14/12 Infectious Disease: Yes: AIDS, HIV ENT: Yes: Other (trach in place) - Past Surgical History Additional Surgical History: tracheostomy - Alcohol/Substance Use Hx Alcohol Use: No History of Substance Use: reports: None - Smoking History Smoking history: Former smoker Have you smoked in the past 12 months: Yes Aproximately how many cigarettes per day: 20 If you are a former smoker, when did you quit?: 2016 - Social History Usual Living Arrangement: With Spouse ADL: Independent History of Recent Travel: No Home Medications - Allergies Allergies/Adverse Reactions: Allergies Allergy/AdvReac Type Severity Reaction Status Date / Time sulfamethoxazole Allergy Unknown Rash Verified 05/28/18 13:36 [From Bactrim] trimethoprim [From Bactrim] Allergy Unknown Rash Verified 05/28/18 13:36 abacavir sulfate Allergy Rash Verified 05/28/18 13:36 [From Ziagen] atazanavir sulfate Allergy Rash Verified 05/28/18 13:36 [From Reyataz] azithromycin Allergy Rash Verified 05/28/18 13:36 dapsone Allergy Rash Verified 05/28/18 13:36 - Home Medications Home Medications: Ambulatory Orders Zolpidem Tartrate [Ambien] 5 mg PO HS #30 tablet MDD 1 03/04/18 Acetaminophen [Tylenol .Regular Strength -] 650 mg PO Q6H PRN tablet 04/26/18 Acetylcysteine Po/INH 20% [Mucomyst 20 Oral / INH Use Only*] 200 mg NEB Q4HWA PRN #1 vial 05/06/18 Albuterol 0.083% Nebulizer Keyonna [Ventolin 0.083% Nebulizer Soln -] 1 neb NEB Q4H PRN #1 box MDD 6 05/06/18 Emtricitabine/Tenofovir [Truvada -] 1 tab PEG DAILY #30 tablet 05/06/18 Etravirine [Intelence -] 100 mg PEG BID #60 tablet 05/06/18 Gabapentin Liquid [Neurontin Oral Liquid -] 250 mg PO BID #1 bottle 05/06/18 Raltegravir [Isentress] 400 mg PEG BID #60 tab 05/06/18 Amoxicillin - [Amoxicillin 500mg Capsule -] 500 mg PO Q8H 05/28/18 Clonazepam [Klonopin] 1 mg GT TID PRN MDD 3 05/28/18 Mirtazapine [Remeron -] 15 mg GT DAILY 05/28/18 Prednisone 15 mg GT DAILY 05/28/18 Sertraline HCl [Zoloft] 100 mg GT AM 05/28/18 Family Disease History - Family Disease History Family History: Unable to Obtain Review of Systems Findings/Remarks: patient is intubated unable to obtain Physical Exam Vital Signs: Vital Signs Temperature 103 F H 05/31/18 12:03 Pulse Rate 114 H 05/31/18 12:03 Respiratory Rate 28 H 05/31/18 12:03 Blood Pressure 111/78 05/31/18 12:03 O2 Sat by Pulse Oximetry (%) 95 05/30/18 21:00 Constitutional: Yes: Pallor, Other (intubated) Eyes: Yes: Other HENT: Yes: Other (trach in plce) Neck: Yes: Other (trach in place). No: Lymphadenopathy Cardiovascular: Yes: Tachycardia, S1, S2 Respiratory: Yes: Mechanically Ventilated, Other (coarse breath sounds) Gastrointestinal: Yes: Soft, Distention, Other (PEG in place) Breast(s): Yes: Other (with RN Mayela as filterer. breasts WNL no masses or lymphadenopathy in the axilla bilaterally) Extremities: Yes: Other (no inguinal adenopathy) Integumentary: Yes: Other (Hot and clammy) Neurological: Yes: Other (intubated) Labs: CBC, BMP 05/31/18 10:00 05/31/18 05:30 Imaging - Results Chest X-ray: Report Reviewed, Image Reviewed Cat Scan: Report Reviewed, Image Reviewed Assessment/Plan 48F with an extensive medical history, intubated, in ICU, in septic shock secondary to bacteremia and has had multiple cardiac arrests. Problem List: Septic Shock Thrombocytopenia acute respiratory failure laryngeal Ca s/p trachestomy failure to thrive s/p PEG COPD/Asthma pericardiac effusion pleural effusion Hepatitis B multiple Cardiac arrest s Klebsiella bacteremia HIV/AIDs Plan: Suspect thrombocytopenia is likely secondary to septic shock platelet transfusion threshold 10K. if falls below 10 thousand transfuse platelets. or if spontaneously bleeding would transfuse platelets. Patient is due for central line change per ICU so would give 1 unit of platelets now patient should not be on any anticoagulation at this time heparin subQ BID was stopped this morning Will send hit Ab and if positive will send serotonin release assay but highly doubt this is heparin induced thrombocytopenia. Will follow along with you thank you for this consultative opportunity
--- NOTE | 2018-05-31 13:57 | PN ---
Teaching Attending Note Name of Resident: Lenny Ruano ATTENDING PHYSICIAN STATEMENT I saw and evaluated the patient. I reviewed the resident's note and discussed the case with the resident. I agree with the resident's findings and plan as documented. SUBJECTIVE: Patient continues to be in ICU on Pressors. OBJECTIVE: Vital Signs Temperature 103 F H 05/31/18 12:03 Pulse Rate 114 H 05/31/18 12:03 Respiratory Rate 28 H 05/31/18 12:03 Blood Pressure 111/78 05/31/18 12:03 O2 Sat by Pulse Oximetry (%) 95 05/30/18 21:00 Gen:intubated on the vent. HEENT: temporal wasting, atraumatic, dry membranes, fixed and dilated. Neck: supple, no jvd Pulm: Decreased air entery BL , on the vent. Cardio: S1S2 positive, tachycardic. Abd: distended, positive for G-tube , BS positive Ext: no edema, 2+ pulses Neuro:unable to access CBCD WBC 16.3 K/mm3 (4.0-10.0) H 05/31/18 10:00 RBC 2.51 M/mm3 (3.60-5.2) L 05/31/18 10:00 Hgb 7.6 GM/dL (10.7-15.3) L 05/31/18 10:00 Hct 23.7 % (32.4-45.2) L 05/31/18 10:00 MCV 94.3 fl (80-96) 05/31/18 10:00 MCHC 32.3 g/dl (32.0-36.0) 05/31/18 10:00 RDW 15.9 % (11.6-15.6) H 05/31/18 10:00 Plt Count 15 K/MM3 (134-434) L* 05/31/18 10:00 MPV 8.7 fl (7.5-11.1) 05/31/18 10:00 CMP Sodium 137 mmol/L (136-145) 05/31/18 05:30 Potassium 3.4 mmol/L (3.5-5.1) L 05/31/18 05:30 Chloride 93 mmol/L (98-107) L 05/31/18 05:30 Carbon Dioxide 30 mmol/L (21-32) 05/31/18 05:30 Anion Gap 13 MMOL/L (8-16) 05/31/18 05:30 BUN 48 mg/dL (7-18) H 05/31/18 05:30 Creatinine 1.5 mg/dL (0.55-1.3) H 05/31/18 05:30 Creat Clearance w eGFR 36.91 (>60) 05/31/18 05:30 Random Glucose 182 mg/dL (74-106) H 05/31/18 05:30 Calcium 6.1 mg/dL (8.5-10.1) L* 05/31/18 05:30 Total Bilirubin 0.4 mg/dL (0.2-1) 05/31/18 05:30 AST 45 U/L (15-37) H 05/31/18 05:30 ALT 18 U/L (13-61) 05/31/18 05:30 Alkaline Phosphatase 99 U/L (45-117) 05/31/18 05:30 Total Protein 4.3 g/dl (6.4-8.2) L 05/31/18 05:30 Albumin 1.3 g/dl (3.4-5.0) L 05/31/18 05:30 CARDIAC ENZYMES Troponin I < 0.02 ng/ml (0.00-0.05) 05/28/18 13:53 Current Medications Generic Name Dose Route Start Last Admin Trade Name Freq PRN Reason Stop Dose Admin Acetaminophen 650 mg 05/31/18 08:04 Tylenol Oral Solution - NGT Q4H PRN FEVER Acetylcysteine 200 mg 05/28/18 21:52 Mucomyst 20 Oral / Inh Use Only* NEB Q4H PRN COUGH Albuterol Sulfate 1 amp 05/28/18 21:35 Ventolin 0.083% Nebulizer Soln - NEB Q4H PRN SHORT OF BREATH/WHEEZING Albuterol/Ipratropium 1 amp 05/29/18 08:00 05/31/18 11:53 Duoneb - NEB 1 amp RQID RAZ Administration Artificial Tears 1 applic 05/30/18 02:00 05/30/18 10:08 Lacri-Lube Eye Ointment - OU 1 applic HS PRN Administration DRY EYES Artificial Tears 1 drop 05/31/18 08:26 Artificial Tears OU BID PRN DRY EYES Budesonide/Formoterol Fumarate 2 puff 05/28/18 22:00 05/31/18 00:08 Symbicort 160/4.5mcg - IH Not Given BID RAZ Chlorhexidine Gluconate 1 applic 05/28/18 22:00 05/30/18 22:00 Hibiclens For Decolonization - TP 1 applic HS RAZ Administration Emtricitabine 200 mg 05/31/18 12:22 Emtriva - GT DAILY@0800 RAZ Etravirine 100 mg 05/28/18 22:00 05/30/18 22:00 Intelence - PO 100 mg BID RAZ Administration Gabapentin 250 mg 05/31/18 13:21 Neurontin Oral Liquid - GT BID RAZ Hydrocortisone Sodium Succinate 100 mg 05/29/18 19:30 05/31/18 10:17 Solu-Cortef - IVPUSH 100 mg Q8H-IV RAZ Administration Fentanyl 500 mcg/ Dextrose 100 mls @ 10 mls/hr 05/29/18 12:00 05/30/18 13:30 IVPB Not Given TITR RAZ Protocol 50 MCG/HR Meropenem 1 gm/ Dextrose 100 mls @ 200 mls/hr 05/29/18 11:45 05/31/18 10:17 IVPB 200 mls/hr Q8H-IV RAZ Administration Vancomycin HCl 1,000 mg in 250 mls @ 166.667 mls/hr 05/29/18 15:23 05/31/18 02:45 Vancomycin (Pre-Docked) IVPB 166.667 mls/hr Q12H RAZ Administration Protocol Dopamine HCl 400,000 mcg/ 250 mls @ 3.26 mls/hr 05/29/18 20:30 05/31/18 07:30 Sodium Chloride IV 6 mcg/kg/min TITR RAZ 9.79 mls/hr Titration Protocol 2 MCG/KG/MIN Vasopressin 50 units/ Sodium 100 mls @ 4 mls/hr 05/29/18 20:30 05/31/18 08:23 Chloride IVPB 6 units/hr ASDIR RAZ 12 mls/hr Administration Protocol 2 UNITS/HR Norepinephrine Bitartrate 8, 500 mls @ 18.75 mls/hr 05/29/18 20:30 05/31/18 08:53 000 mcg/ Dextrose IV 20 mcg/min TITR RAZ 75 mls/hr Administration Protocol 5 MCG/MIN Sodium Chloride 1,000 mls @ 100 mls/hr 05/31/18 11:30 05/31/18 11:42 Normal Saline - IV 100 mls/hr ASDIR RAZ Administration Mirtazapine 15 mg 05/29/18 10:00 05/30/18 10:00 Remeron - GT 15 mg DAILY RAZ Administration Mupirocin 1 applic 05/28/18 22:00 05/31/18 10:18 Bactroban Ointment (For Decolonization) - NS 06/02/18 21:59 1 applic BID RAZ Administration Pantoprazole Sodium 40 mg 05/30/18 12:00 05/31/18 10:17 Protonix Iv IVPUSH 40 mg BID RAZ Administration Raltegravir 400 mg 05/28/18 22:00 05/30/18 22:00 Isentress - PO 400 mg BID RAZ Administration Sertraline HCl 50 mg 05/29/18 07:00 05/30/18 06:02 Zoloft - GT 50 mg DAILY@0700 RAZ Administration Tenofovir Disoproxil Fumarate 300 mg 05/31/18 13:18 Viread - GT DAILY@0800 RAZ Vancomycin HCl 125 mg 05/29/18 18:00 05/31/18 06:00 Vancomycin Oral Solution PO 125 mg Q6HPO RAZ Administration Home Medications Medication Instructions Recorded Zolpidem Tartrate [Ambien] 5 mg PO HS #30 tablet MDD 1 03/04/18 Acetaminophen [Tylenol .Regular 650 mg PO Q6H PRN tablet 04/26/18 Strength -] Acetylcysteine Po/INH 20% 200 mg NEB Q4HWA PRN #1 vial 05/06/18 [Mucomyst 20 Oral / INH Use Only*] Albuterol 0.083% Nebulizer Keyonna 1 neb NEB Q4H PRN #1 box MDD 6 05/06/18 [Ventolin 0.083% Nebulizer Soln -] Emtricitabine/Tenofovir [Truvada -] 1 tab PEG DAILY #30 tablet 05/06/18 Etravirine [Intelence -] 100 mg PEG BID #60 tablet 05/06/18 Gabapentin Liquid [Neurontin Oral 250 mg PO BID #1 bottle 05/06/18 Liquid -] Raltegravir [Isentress] 400 mg PEG BID #60 tab 05/06/18 Amoxicillin - [Amoxicillin 500mg 500 mg PO Q8H 05/28/18 Capsule -] Clonazepam [Klonopin] 1 mg GT TID PRN MDD 3 05/28/18 Mirtazapine [Remeron -] 15 mg GT DAILY 05/28/18 Prednisone 15 mg GT DAILY 05/28/18 Sertraline HCl [Zoloft] 100 mg GT AM 05/28/18 Laboratory Tests 05/28/18 05/28/18 05/29/18 13:53 16:53 03:00 WBC 5.9 INR Fibrinogen ABG pH ABG pCO2 at Pt Temp ABG pO2 at Pt Temp ABG HCO3 ABG O2 Sat (Measured) ABG O2 Content ABG Base Excess O2 Delivery Device Oxygen Flow Rate Vent Rate Mechanical Rate PEEP Pressure Support Vent Lactic Acid 4.4 H* 5.5 H* Calcium Heparin-Ind Plt Ab Scrn 05/29/18 05/29/18 05/30/18 05:30 05:30 11:20 WBC 1.9 L* INR Fibrinogen 737.0 H ABG pH ABG pCO2 at Pt Temp ABG pO2 at Pt Temp ABG HCO3 ABG O2 Sat (Measured) ABG O2 Content ABG Base Excess O2 Delivery Device Oxygen Flow Rate Vent Rate Mechanical Rate PEEP Pressure Support Vent Lactic Acid 6.4 H* Calcium Heparin-Ind Plt Ab Scrn 05/31/18 05/31/18 05/31/18 08:17 10:00 16:15 WBC INR 1.15 H Fibrinogen 583.0 H D ABG pH ABG pCO2 at Pt Temp ABG pO2 at Pt Temp ABG HCO3 ABG O2 Sat (Measured) ABG O2 Content ABG Base Excess O2 Delivery Device Oxygen Flow Rate Vent Rate Mechanical Rate PEEP Pressure Support Vent Lactic Acid Calcium Heparin-Ind Plt Ab Scrn Pending 06/01/18 06/01/18 05:30 06:30 WBC INR Fibrinogen ABG pH 7.28 L ABG pCO2 at Pt Temp 66.5 H* D ABG pO2 at Pt Temp 159.0 H* ABG HCO3 30.0 H ABG O2 Sat (Measured) 99.4 H ABG O2 Content 10.5 L ABG Base Excess 3.1 H O2 Delivery Device Vent Oxygen Flow Rate 100 Vent Rate 24 Mechanical Rate Yes PEEP 15.0 Pressure Support Vent 300 Lactic Acid Calcium 6.6 L* Heparin-Ind Plt Ab Scrn ASSESSMENT AND PLAN: Pt is a 48 y/o F HIV/AIDS, laryngeal ca s/p tracheostomy, failure to thrive, PEG tube, Hep B, COPD, Asthma, positive C-diff (05/21) for SOB/increased mucus/ fatigue for 7-10 days. She is admitted to ICU for acute hypoxic respiratory failure. #Acute hypoxemic respiratory failure due to PNA On IV Vancomycin and meropenem, ID consult appreciated. Pulm.on the case per ICU team. #ARDS due to severe sepsis, penumonia/Gram negative Bacteremia , ID on the case , on IV Abx Vancomycin/meropenen # severe Sepsis with Gram Negative Bacteremia with thrombocytopenia r/o DIC with acute hypoxemic respiratory failure s/p intubation s/p cardiac arrest x2 on 4 different pressors. #PNA on IV Vanc/meropenem ID on the case #HIT 2 is being ruled out. hem/onc is on the case. #SONAM with [employer] 1.5 ( baseline 0.3) on iv NS # Hypokalemia improved due to severe diarrhea. #Hx C. diff, stool studies are pending, on Po Vanc #HIV/Aids; with Truvada, Etravirine, Isentress # H/o Laryngeal Ca s/p tracheostomy #Peg tube , npo #PPx : discontinued for possible Hit2 in ICU
--- NOTE | 2018-05-31 14:23 | PN ---
Physical Exam: SUBJECTIVE: Patient seen and examined. No acute events overnight. OBJECTIVE: Vital Signs Period Temp Pulse Resp BP Sys/Lisa Pulse Ox Last 24 Hr 98.0 F-103 F 101-118 28-110 98-129/70-94 95-97 GENERAL: The patient is comatose, non-arousable to tactile or verbal stimuli. EYES: Pupils very sluggish to light, scleral ictericus ENT: Ears normal, nares patent, oropharynx with clots of blood in mouth NECK: Tracheostomy tube in place LUNGS: Coarse breath sounds, mechanical ventilation HEART: Tachycardic, regular rate and rhythm, S1, S2 without murmur, rub or gallop. ABDOMEN: Distended (more than yesterday), dull to percussion, BS+, rectal sheath draining yellow-green liquid, Ugarte draining clear urine. EXTREMITIES: 2+ dorsal pedal pulses, warm-except for distal metatarsals which were cool to touch and dusky, no edema. NEUROLOGICAL: Comatose Laboratory Results - last 24 hr 05/31/18 05/31/18 05/31/18 05:30 05:30 08:17 WBC 19.3 H RBC 2.60 L Hgb 7.9 L Hct 24.7 L MCV 95.0 MCH 30.3 MCHC 31.9 L RDW 15.7 H Plt Count 17 L* D MPV 8.1 D Absolute Neuts (auto) 18.4 H Neutrophils % 94.9 H Neutrophils % (Manual) 62.0 Band Neutrophils % 24.0 Lymphocytes % 3.7 L Lymphocytes % (Manual) 2.0 L D Monocytes % 1.3 L D Monocytes % (Manual) 2 L Eosinophils % 0.1 D Eosinophils % (Manual) 0.0 Basophils % 0.0 Basophils % (Manual) 0.0 Myelocytes % (Man) 0 Promyelocytes % (Man) 0 D Blast Cells % (Manual) 0 Nucleated RBC % 0 Metamyelocytes 9 H D Hypochromia 2+ Toxic Granulation 2+ Platelet Estimate Decreased Polychromasia 0 Poikilocytosis 0 Basophilic Stippling 1+ Anisocytosis 2+ Microcytosis 0 Macrocytosis 0 Spherocytes 2+ Tear Drop Cells Ovalocytes 2+ Nowata Cells Acanthocytes (Spur) PT with INR INR PTT (Actin FS) Fibrinogen 583.0 H D ABG pH ABG pCO2 at Pt Temp ABG pO2 at Pt Temp ABG HCO3 ABG O2 Sat (Measured) ABG O2 Content ABG Base Excess Aureliano Test Oxygen Flow Rate Sodium 137 Potassium 3.4 L Chloride 93 L Carbon Dioxide 30 Anion Gap 13 BUN 48 H Creatinine 1.5 H Creat Clearance w eGFR 36.91 Random Glucose 182 H Calcium 6.1 L* Phosphorus 3.6 Magnesium 1.8 Total Bilirubin 0.4 AST 45 H ALT 18 Alkaline Phosphatase 99 Total Protein 4.3 L Albumin 1.3 L Blood Type Antibody Screen 05/31/18 05/31/18 05/31/18 10:00 10:00 10:00 WBC 16.3 H RBC 2.51 L Hgb 7.6 L Hct 23.7 L MCV 94.3 MCH 30.4 MCHC 32.3 RDW 15.9 H Plt Count 15 L* MPV 8.7 Absolute Neuts (auto) 15.3 H Neutrophils % 93.8 H Neutrophils % (Manual) 76.0 Band Neutrophils % 11.0 Lymphocytes % 4.6 L D Lymphocytes % (Manual) 3.0 L D Monocytes % 1.6 L Monocytes % (Manual) 4 D Eosinophils % 0.0 D Eosinophils % (Manual) 0.0 Basophils % 0.0 Basophils % (Manual) 1.0 D Myelocytes % (Man) 0 Promyelocytes % (Man) 0 Blast Cells % (Manual) 0 Nucleated RBC % 0 Metamyelocytes 4 H D Hypochromia 0 Toxic Granulation 1+ Platelet Estimate Decreased Polychromasia 1+ Poikilocytosis 0 Basophilic Stippling Anisocytosis 1+ Microcytosis 0 Macrocytosis 0 Spherocytes 1+ Tear Drop Cells 1+ Ovalocytes 1+ Nowata Cells 1+ Acanthocytes (Spur) 1+ PT with INR 13.60 H INR 1.15 H PTT (Actin FS) 33.3 Fibrinogen ABG pH ABG pCO2 at Pt Temp ABG pO2 at Pt Temp ABG HCO3 ABG O2 Sat (Measured) ABG O2 Content ABG Base Excess Aureliano Test Oxygen Flow Rate Sodium Potassium Chloride Carbon Dioxide Anion Gap BUN Creatinine Creat Clearance w eGFR Random Glucose Calcium Phosphorus Magnesium Total Bilirubin AST ALT Alkaline Phosphatase Total Protein Albumin Blood Type A POSITIVE Antibody Screen Negative 05/31/18 10:58 WBC RBC Hgb Hct MCV MCH MCHC RDW Plt Count MPV Absolute Neuts (auto) Neutrophils % Neutrophils % (Manual) Band Neutrophils % Lymphocytes % Lymphocytes % (Manual) Monocytes % Monocytes % (Manual) Eosinophils % Eosinophils % (Manual) Basophils % Basophils % (Manual) Myelocytes % (Man) Promyelocytes % (Man) Blast Cells % (Manual) Nucleated RBC % Metamyelocytes Hypochromia Toxic Granulation Platelet Estimate Polychromasia Poikilocytosis Basophilic Stippling Anisocytosis Microcytosis Macrocytosis Spherocytes Tear Drop Cells Ovalocytes Nicole Cells Acanthocytes (Spur) PT with INR INR PTT (Actin FS) Fibrinogen ABG pH 7.42 D ABG pCO2 at Pt Temp 48.0 H D ABG pO2 at Pt Temp 136.0 H D ABG HCO3 30.6 H ABG O2 Sat (Measured) 99.2 H ABG O2 Content 10.3 L ABG Base Excess 6.0 H Aureliano Test Positive Oxygen Flow Rate Yes Sodium Potassium Chloride Carbon Dioxide Anion Gap BUN Creatinine Creat Clearance w eGFR Random Glucose Calcium Phosphorus Magnesium Total Bilirubin AST ALT Alkaline Phosphatase Total Protein Albumin Blood Type Antibody Screen Active Medications Current Medications Acetaminophen (Tylenol Oral Solution -) 650 mg NGT Q4H PRN PRN Reason: FEVER Acetylcysteine (Mucomyst 20 Oral / Inh Use Only*) 200 mg NEB Q4H PRN PRN Reason: COUGH Albuterol Sulfate (Ventolin 0.083% Nebulizer Soln -) 1 amp NEB Q4H PRN PRN Reason: SHORT OF BREATH/WHEEZING Albuterol/Ipratropium (Duoneb -) 1 amp NEB RQID [facility] Last Admin: 05/31/18 11:53 Dose: 1 amp Artificial Tears (Lacri-Lube Eye Ointment -) 1 applic OU HS PRN PRN Reason: DRY EYES Last Admin: 05/30/18 10:08 Dose: 1 applic Artificial Tears (Artificial Tears) 1 drop OU BID PRN PRN Reason: DRY EYES Budesonide/Formoterol Fumarate (Symbicort 160/4.5mcg -) 2 puff IH BID [facility] Last Admin: 05/31/18 00:08 Dose: Not Given Chlorhexidine Gluconate (Hibiclens For Decolonization -) 1 applic TP HS [facility] Last Admin: 05/30/18 22:00 Dose: 1 applic Emtricitabine (Emtriva -) 200 mg GT DAILY@0800 RAZ Etravirine (Intelence -) 100 mg PO BID RAZ Last Admin: 05/30/18 22:00 Dose: 100 mg Gabapentin (Neurontin Oral Liquid -) 250 mg GT BID RAZ Hydrocortisone Sodium Succinate (Solu-Cortef -) 100 mg IVPUSH Q8H-IV RAZ Last Admin: 05/31/18 10:17 Dose: 100 mg Fentanyl 500 mcg/ Dextrose 100 mls @ 10 mls/hr IVPB TITR RAZ; Protocol Last Admin: 05/30/18 13:30 Dose: Not Given Meropenem 1 gm/ Dextrose 100 mls @ 200 mls/hr IVPB Q8H-IV ARZ Last Admin: 05/31/18 10:17 Dose: 200 mls/hr Vancomycin HCl (Vancomycin (Pre-Docked)) 1,000 mg in 250 mls @ 166.667 mls/hr IVPB Q12H RAZ; Protocol Last Admin: 05/31/18 02:45 Dose: 166.667 mls/hr Dopamine HCl 400,000 mcg/ (Sodium Chloride) 250 mls @ 3.26 mls/hr IV TITR RAZ; Protocol Last Titration: 05/31/18 07:30 Dose: 6 mcg/kg/min, 9.79 mls/hr Vasopressin 50 units/ Sodium (Chloride) 100 mls @ 4 mls/hr IVPB ASDIR RAZ; Protocol Last Admin: 05/31/18 08:23 Dose: 6 units/hr, 12 mls/hr Norepinephrine Bitartrate 8, (000 mcg/ Dextrose) 500 mls @ 18.75 mls/hr IV TITR RAZ; Protocol Last Admin: 05/31/18 08:53 Dose: 20 mcg/min, 75 mls/hr Sodium Chloride (Normal Saline -) 1,000 mls @ 100 mls/hr IV ASDIR RAZ Last Admin: 05/31/18 11:42 Dose: 100 mls/hr Mirtazapine (Remeron -) 15 mg GT DAILY [facility] Last Admin: 05/30/18 10:00 Dose: 15 mg Mupirocin (Bactroban Ointment (For Decolonization) -) 1 applic NS BID [facility] Stop: 06/02/18 21:59 Last Admin: 05/31/18 10:18 Dose: 1 applic Pantoprazole Sodium (Protonix Iv) 40 mg IVPUSH BID [facility] Last Admin: 05/31/18 10:17 Dose: 40 mg Raltegravir (Isentress -) 400 mg PO BID [facility] Last Admin: 05/30/18 22:00 Dose: 400 mg Sertraline HCl (Zoloft -) 50 mg GT DAILY@0700 [facility] Last Admin: 05/30/18 06:02 Dose: 50 mg Tenofovir Disoproxil Fumarate (Viread -) 300 mg GT DAILY@0800 [facility] Vancomycin HCl (Vancomycin Oral Solution) 125 mg PO Q6HPO [facility] Last Admin: 05/31/18 06:00 Dose: 125 mg Home Medications Medication Instructions Recorded Zolpidem Tartrate [Ambien] 5 mg PO HS #30 tablet MDD 1 03/04/18 Acetaminophen [Tylenol .Regular 650 mg PO Q6H PRN tablet 04/26/18 Strength -] Acetylcysteine Po/INH 20% 200 mg NEB Q4HWA PRN #1 vial 05/06/18 [Mucomyst 20 Oral / INH Use Only*] Albuterol 0.083% Nebulizer Keyonna 1 neb NEB Q4H PRN #1 box MDD 6 05/06/18 [Ventolin 0.083% Nebulizer Soln -] Emtricitabine/Tenofovir [Truvada -] 1 tab PEG DAILY #30 tablet 05/06/18 Etravirine [Intelence -] 100 mg PEG BID #60 tablet 05/06/18 Gabapentin Liquid [Neurontin Oral 250 mg PO BID #1 bottle 05/06/18 Liquid -] Raltegravir [Isentress] 400 mg PEG BID #60 tab 05/06/18 Amoxicillin - [Amoxicillin 500mg 500 mg PO Q8H 05/28/18 Capsule -] Clonazepam [Klonopin] 1 mg GT TID PRN MDD 3 05/28/18 Mirtazapine [Remeron -] 15 mg GT DAILY 05/28/18 Prednisone 15 mg GT DAILY 05/28/18 Sertraline HCl [Zoloft] 100 mg GT AM 05/28/18 ASSESSMENT/PLAN: Pt is a 48 y/o F HIV/AIDS, laryngeal ca s/p tracheostomy, failure to thrive, PEG tube, Hep B, COPD, Asthma, positive C-diff (05/21) BIBA for SOB/increased mucus/fatigue for 7-10 days. She is admitted to ICU for acute hypoxic respiratory failure. Coded three times in the ICU and now remains intubated. #Pulmonology -Acute hypoxic respiratory failure secondary to right lower lobe PNA Intubated Settings @ A/C: 28/300/90/15. Low tidal volume 6ml/kg with a high PEEP Continue IV Meropenem 1gm Q8H Day3 Albuterol PRN Duoneb QID #Infectious Disease -Right lower lobe pneumonia w/ associated bacteremia BCx. positive Klebsiella pneumonia f/u Rpt. BCx. as Pt. had temp to 103 today -AIDS on HAART therapy c/w Truvada, Etravirine, Raltegravir #Cardiovascular -Hypotension c/w 3 pressors: Levophed: 20; Dopa:decreased to 8; Vaso: decreased to 4 Units Echo 04/20: Small pericardial effusion < 1cm -Thrombocytopenia Fibrinogen: 583 (high) Platelets 17k-->15k received 2 unit platelets f/u CBC after transfusion #Gastroenterology -Bilious vomiting and watery diarrhea this morning Patient was treated for C. diff on 05/21/18; 05/30/2018: positive C. diff organisms but negative for Ag toxins Continue Continue PO Vancomycin Q6H Day 3 #Nephrology -SONAM Cr. 1.5 (baseline creatinine 1.1) c/w IVF Avoid nephrotoxic drugs Ugarte in place-draining beka colored urine #F/E/N IV NS with sodium bicarb @ 100 mls/hr Electrolytes: Hypocalcemia 6.1, corrected calcium 8.26, repleted with IV Calcium gluconate NPO #Ppx. For DVT: On Heparin 5000 IU sq BID For GI: IV Protonix Visit type - Emergency Visit Emergency Visit: Yes ED Registration Date: 05/28/18 Care time: The patient presented to the Emergency Department on the above date and was hospitalized for further evaluation of their emergent condition. - New Patient This patient is new to me today: No - Critical Care Critical Care patient: Yes Total Critical Care Time (in minutes): 44 Critical Care Statement: The care of this patient involved high complexity decision making to prevent further life threatening deterioration of the patient 's condition and/or to evaluate & treat vital organ system(s) failure or risk of failure. - Discharge Referral Referred to [facility] No
[2018-05-31] MEDS: ETRAVIRINE 100 MG TABLET PO SCH (14:38)
[2018-05-31] MEDS: RALTEGRAVIR POTASSIUM 400 MG TAB PO SCH (14:39)
[2018-05-31] MEDS: SERTRALINE HCL 50 MG TABLET (FP) GT SCH (14:42)
[2018-05-31] MEDS: MIRTAZAPINE 15 MG TABLET (FP) GT SCH (14:42)
--- NOTE | 2018-05-31 15:27 | PN ---
Physical Exam: SUBJECTIVE: Patient seen and examined at bedside this morning. Intubated, no sedation. As per nursing and family, patient has no movement. Patient has been having fever overnight and today with Tmax of 103. Platelet has decreased to 17. Platelet transfusion on hold for now, to transfuse once temp <101. On IV tylenol and cooling blankets. Settings @ A/C: 24/300/70/10. RR and FiO2 decreased. Patient maintains O2 satn > 92%. On Norepi:20; Dopa:6; Vaso:6 Units I/O [id number] OBJECTIVE: Vital Signs Period Temp Pulse Resp BP Sys/Lisa Pulse Ox Last 24 Hr 98.0 F-103 F 101-118 24-110 98-129/70-94 95-97 GENERAL: The patient is intubated and unresponsive. Eyes open, no pupillary reflex. LUNGS: +scattered rhonchi bilaterally HEART: Tachycardic, without murmur, rub or gallop. ABDOMEN: +distended, +BS EXTREMITIES: +2 peripheral edema Laboratory Results - last 24 hr 05/31/18 05/31/18 05/31/18 05:30 05:30 08:17 WBC 19.3 H RBC 2.60 L Hgb 7.9 L Hct 24.7 L MCV 95.0 MCH 30.3 MCHC 31.9 L RDW 15.7 H Plt Count 17 L* D MPV 8.1 D Absolute Neuts (auto) 18.4 H Neutrophils % 94.9 H Neutrophils % (Manual) 62.0 Band Neutrophils % 24.0 Lymphocytes % 3.7 L Lymphocytes % (Manual) 2.0 L D Monocytes % 1.3 L D Monocytes % (Manual) 2 L Eosinophils % 0.1 D Eosinophils % (Manual) 0.0 Basophils % 0.0 Basophils % (Manual) 0.0 Myelocytes % (Man) 0 Promyelocytes % (Man) 0 D Blast Cells % (Manual) 0 Nucleated RBC % 0 Metamyelocytes 9 H D Hypochromia 2+ Toxic Granulation 2+ Platelet Estimate Decreased Polychromasia 0 Poikilocytosis 0 Basophilic Stippling 1+ Anisocytosis 2+ Microcytosis 0 Macrocytosis 0 Spherocytes 2+ Tear Drop Cells Ovalocytes 2+ Orma Cells Acanthocytes (Spur) PT with INR INR PTT (Actin FS) Fibrinogen 583.0 H D ABG pH ABG pCO2 at Pt Temp ABG pO2 at Pt Temp ABG HCO3 ABG O2 Sat (Measured) ABG O2 Content ABG Base Excess Aureliano Test Oxygen Flow Rate Sodium 137 Potassium 3.4 L Chloride 93 L Carbon Dioxide 30 Anion Gap 13 BUN 48 H Creatinine 1.5 H Creat Clearance w eGFR 36.91 Random Glucose 182 H Calcium 6.1 L* Phosphorus 3.6 Magnesium 1.8 Total Bilirubin 0.4 AST 45 H ALT 18 Alkaline Phosphatase 99 Total Protein 4.3 L Albumin 1.3 L Blood Type Antibody Screen 05/31/18 05/31/18 05/31/18 10:00 10:00 10:00 WBC 16.3 H RBC 2.51 L Hgb 7.6 L Hct 23.7 L MCV 94.3 MCH 30.4 MCHC 32.3 RDW 15.9 H Plt Count 15 L* MPV 8.7 Absolute Neuts (auto) 15.3 H Neutrophils % 93.8 H Neutrophils % (Manual) 76.0 Band Neutrophils % 11.0 Lymphocytes % 4.6 L D Lymphocytes % (Manual) 3.0 L D Monocytes % 1.6 L Monocytes % (Manual) 4 D Eosinophils % 0.0 D Eosinophils % (Manual) 0.0 Basophils % 0.0 Basophils % (Manual) 1.0 D Myelocytes % (Man) 0 Promyelocytes % (Man) 0 Blast Cells % (Manual) 0 Nucleated RBC % 0 Metamyelocytes 4 H D Hypochromia 0 Toxic Granulation 1+ Platelet Estimate Decreased Polychromasia 1+ Poikilocytosis 0 Basophilic Stippling Anisocytosis 1+ Microcytosis 0 Macrocytosis 0 Spherocytes 1+ Tear Drop Cells 1+ Ovalocytes 1+ Orma Cells 1+ Acanthocytes (Spur) 1+ PT with INR 13.60 H INR 1.15 H PTT (Actin FS) 33.3 Fibrinogen ABG pH ABG pCO2 at Pt Temp ABG pO2 at Pt Temp ABG HCO3 ABG O2 Sat (Measured) ABG O2 Content ABG Base Excess Aureliano Test Oxygen Flow Rate Sodium Potassium Chloride Carbon Dioxide Anion Gap BUN Creatinine Creat Clearance w eGFR Random Glucose Calcium Phosphorus Magnesium Total Bilirubin AST ALT Alkaline Phosphatase Total Protein Albumin Blood Type A POSITIVE Antibody Screen Negative 05/31/18 10:58 WBC RBC Hgb Hct MCV MCH MCHC RDW Plt Count MPV Absolute Neuts (auto) Neutrophils % Neutrophils % (Manual) Band Neutrophils % Lymphocytes % Lymphocytes % (Manual) Monocytes % Monocytes % (Manual) Eosinophils % Eosinophils % (Manual) Basophils % Basophils % (Manual) Myelocytes % (Man) Promyelocytes % (Man) Blast Cells % (Manual) Nucleated RBC % Metamyelocytes Hypochromia Toxic Granulation Platelet Estimate Polychromasia Poikilocytosis Basophilic Stippling Anisocytosis Microcytosis Macrocytosis Spherocytes Tear Drop Cells Ovalocytes Orma Cells Acanthocytes (Spur) PT with INR INR PTT (Actin FS) Fibrinogen ABG pH 7.42 D ABG pCO2 at Pt Temp 48.0 H D ABG pO2 at Pt Temp 136.0 H D ABG HCO3 30.6 H ABG O2 Sat (Measured) 99.2 H ABG O2 Content 10.3 L ABG Base Excess 6.0 H Aureliano Test Positive Oxygen Flow Rate Yes Sodium Potassium Chloride Carbon Dioxide Anion Gap BUN Creatinine Creat Clearance w eGFR Random Glucose Calcium Phosphorus Magnesium Total Bilirubin AST ALT Alkaline Phosphatase Total Protein Albumin Blood Type Antibody Screen Active Medications Generic Name Dose Route Start Last Admin Trade Name Freq PRN Reason Stop Dose Admin Acetaminophen 650 mg 05/31/18 08:04 Tylenol Oral Solution - NGT Q4H PRN FEVER Acetylcysteine 200 mg 05/28/18 21:52 Mucomyst 20 Oral / Inh Use Only* NEB Q4H PRN COUGH Albuterol Sulfate 1 amp 05/28/18 21:35 Ventolin 0.083% Nebulizer Soln - NEB Q4H PRN SHORT OF BREATH/WHEEZING Albuterol/Ipratropium 1 amp 05/29/18 08:00 05/31/18 11:53 Duoneb - NEB 1 amp RQID RAZ Administration Artificial Tears 1 applic 05/30/18 02:00 05/30/18 10:08 Lacri-Lube Eye Ointment - OU 1 applic HS PRN Administration DRY EYES Artificial Tears 1 drop 05/31/18 08:26 Artificial Tears OU BID PRN DRY EYES Budesonide/Formoterol Fumarate 2 puff 05/28/18 22:00 05/31/18 14:43 Symbicort 160/4.5mcg - IH Not Given BID RAZ Chlorhexidine Gluconate 1 applic 05/28/18 22:00 05/30/18 22:00 Hibiclens For Decolonization - TP 1 applic HS RAZ Administration Gabapentin 250 mg 05/31/18 13:21 Neurontin Oral Liquid - GT BID RAZ Hydrocortisone Sodium Succinate 100 mg 05/29/18 19:30 05/31/18 10:17 Solu-Cortef - IVPUSH 100 mg Q8H-IV RAZ Administration Fentanyl 500 mcg/ Dextrose 100 mls @ 10 mls/hr 05/29/18 12:00 05/30/18 13:30 IVPB Not Given TITR RAZ Protocol 50 MCG/HR Meropenem 1 gm/ Dextrose 100 mls @ 200 mls/hr 05/29/18 11:45 05/31/18 10:17 IVPB 200 mls/hr Q8H-IV RAZ Administration Vancomycin HCl 1,000 mg in 250 mls @ 166.667 mls/hr 05/29/18 15:23 05/31/18 15:18 Vancomycin (Pre-Docked) IVPB 166.667 mls/hr Q12H RAZ Administration Protocol Dopamine HCl 400,000 mcg/ 250 mls @ 3.26 mls/hr 05/29/18 20:30 05/31/18 07:30 Sodium Chloride IV 6 mcg/kg/min TITR RAZ 9.79 mls/hr Titration Protocol 2 MCG/KG/MIN Vasopressin 50 units/ Sodium 100 mls @ 4 mls/hr 05/29/18 20:30 05/31/18 08:23 Chloride IVPB 6 units/hr ASDIR RAZ 12 mls/hr Administration Protocol 2 UNITS/HR Norepinephrine Bitartrate 8, 500 mls @ 18.75 mls/hr 05/29/18 20:30 05/31/18 08:53 000 mcg/ Dextrose IV 20 mcg/min TITR RAZ 75 mls/hr Administration Protocol 5 MCG/MIN Sodium Chloride 1,000 mls @ 100 mls/hr 05/31/18 11:30 05/31/18 11:42 Normal Saline - IV 100 mls/hr ASDIR RAZ Administration Mupirocin 1 applic 05/28/18 22:00 05/31/18 10:18 Bactroban Ointment (For Decolonization) - NS 06/02/18 21:59 1 applic BID RAZ Administration Pantoprazole Sodium 40 mg 05/30/18 12:00 05/31/18 10:17 Protonix Iv IVPUSH 40 mg BID RAZ Administration Vancomycin HCl 125 mg 05/29/18 18:00 05/31/18 14:40 Vancomycin Oral Solution PO 125 mg Q6HPO RAZ Administration ASSESSMENT/PLAN: Patient is a 48 y/o female with past medical history of HIV/AIDS, laryngeal ca s /p tracheostomy, failure to thrive, PEG tube, Hep B, COPD, Asthma, positive C- diff (05/21) BIBA for SOB/increased mucus/fatigue for 7-10 days. She is admitted to ICU for acute hypoxic respiratory failure Coded three times in the ICU and now remains Intubated. #Pulmonary 1)Acute hypoxic respiratory failure secondary to right lower lobe PNA -Intubated Settings @ A/C: RR 24 / TV 300 / FiO2 70% / PEEP 10 -Continue IV Meropenem 1gm Q8H Day3 -Albuterol PRN -Duoneb QID -Solu-medrol 100mg q8h #Cardiovascular 1)Sinus tachycardia -Cardiology (Dr. Jackson) consulted. Recommendations appreciated. -Titrate off vasopressors as tolerated, beginning with lowering dose of dopamine -Serial HR and BP -On IVF -Echo (04/08/18): normal LVEF; small amount pericardial effusion, without evidence of tamponade. -Replete electrolytes: -Keep K 4-4.5, Mg 2-2.4, PO4 2.5-4.9. #Infectious Disease 1)Septic shock likely 2/2 bacteremia 2/2 Pneumonia -Blood cx - + Klebsiella pneumoniae -WBC 19.3, Tmax 103 -IV Tylenol q4 PRN and cooling blankets ordered. -ID (Dr. Kee) consulted. Recommendations appreciated. -Continue IV Meropenem 1gm q8h -Repeat blood cultures tomorrow AM 2)HIV on HAART -As per ID, will hold all HAART medications for now. #Gastroenterology 1)Hx of C. Difficile infection -Patient was treated for C. diff on 05/21/18; 05/30/2018: Positive c. diff Ag neg toxin -Continue Continue PO Vancomycin 125 mg Q6H Day 3 #Nephrology 1)SONAM -BUN/Cr: 48/1.5 -IV fluids -Avoid nephrotoxic agents -Ugarte in place -Monitor I/O -Daily weights 2)Hypomagnesemia : Mg 1.8 -IV MgSO4 1gm given 3)Hypokalemia -IV KCl given -will monitor #Hematology 1)Thrombocytopenia: Plt 17 -likely 2/2 ?septic shock -PT/INR and Fibrinogen ordered -patient febrile with Tmax 103 -IV Tylenol q4h PRN and cooling blankets -1 unit platelets transfused with Temp <101 -repeat CBC post-transfusion -will continue to monitor 2)Anemia -H/H - 7.9/24.7 -will continue to monitor -transfuse with Hgb <7 #FEN -IV NS @100ml/hr -hypokalemia, repleted -routine bmp monitoring -NPO #Prophylaxis 1)DVT - Thrombocytopenia, will hold heparin or and AC for now 2)GI - IV Protonix 40mg BID #Disposition -full code -ICU for closer monitoring Visit type - Emergency Visit Emergency Visit: Yes ED Registration Date: 05/28/18 Care time: The patient presented to the Emergency Department on the above date and was hospitalized for further evaluation of their emergent condition. - New Patient This patient is new to me today: Yes Date on this admission: 05/31/18 - Critical Care Critical Care patient: Yes Total Critical Care Time (in minutes): 45 Critical Care Statement: The care of this patient involved high complexity decision making to prevent further life threatening deterioration of the patient 's condition and/or to evaluate & treat vital organ system(s) failure or risk of failure.
--- NOTE | 2018-05-31 21:32 | CONSULT ---
Consult - text type - Consultation Consultation Note: 48F with multiple medical problems including history of HIV/AIDS, laryngeal ca s/p tracheostomy, failure to thrive, PEG tube, HepB, COPD/Asthma, small amount pericardial effusion noted on two ECHOs , presents to the hospital for vomiting , diarrhea, productive cough despite being on ABx, and generalized weakness. Per the chart the patient was having fevers as high as 104. Patient started to decline per the and started to get lethargic. Patient and her called Dr. Messer's office last week and she was told to come to the hospital. She was recently treated with cefepime for klebsiella bacteremia last month. Hematology consulted for acute drop in platelets. Platelets went from 259K to 15K in three days. Blood cultures are + for klebsiella. She is being treated for sepsis/ARDS/SONAM. she is unresponsive - Past Medical History Cardio/Vascular: Yes: CHF Pulmonary: Yes: Asthma, Cancer (laryngeal), COPD, Other (vocal cord mass) Hepatobiliary: Yes: Hepatitis B Infectious Disease: Yes: AIDS, HIV ENT: Yes: Other (trach in place) - Past Surgical History Additional Surgical History: tracheostomy - Smoking History Smoking history: Former smoker - Social History Usual Living Arrangement: With Spouse ADL: Independent - Allergies Allergies/Adverse Reactions: Allergies Allergy/AdvReac Type Severity Reaction Status Date / Time sulfamethoxazole Allergy Unknown Rash Verified 05/28/18 13:36 [From Bactrim] trimethoprim [From Bactrim] Allergy Unknown Rash Verified 05/28/18 13:36 abacavir sulfate Allergy Rash Verified 05/28/18 13:36 [From Ziagen] atazanavir sulfate Allergy Rash Verified 05/28/18 13:36 [From Reyataz] azithromycin Allergy Rash Verified 05/28/18 13:36 dapsone Allergy Rash Verified 05/28/18 13:36 - Home Medications Home Medications: Ambulatory Orders Zolpidem Tartrate [Ambien] 5 mg PO HS #30 tablet MDD 1 03/04/18 Acetaminophen [Tylenol .Regular Strength -] 650 mg PO Q6H PRN tablet 04/26/18 Acetylcysteine Po/INH 20% [Mucomyst 20 Oral / INH Use Only*] 200 mg NEB Q4HWA PRN #1 vial 05/06/18 Albuterol 0.083% Nebulizer Keyonna [Ventolin 0.083% Nebulizer Soln -] 1 neb NEB Q4H PRN #1 box MDD 6 05/06/18 Emtricitabine/Tenofovir [Truvada -] 1 tab PEG DAILY #30 tablet 05/06/18 Etravirine [Intelence -] 100 mg PEG BID #60 tablet 05/06/18 Gabapentin Liquid [Neurontin Oral Liquid -] 250 mg PO BID #1 bottle 05/06/18 Raltegravir [Isentress] 400 mg PEG BID #60 tab 05/06/18 Amoxicillin - [Amoxicillin 500mg Capsule -] 500 mg PO Q8H 05/28/18 Clonazepam [Klonopin] 1 mg GT TID PRN MDD 3 05/28/18 Mirtazapine [Remeron -] 15 mg GT DAILY 05/28/18 Prednisone 15 mg GT DAILY 05/28/18 Sertraline HCl [Zoloft] 100 mg GT AM 05/28/18 Physical Exam Vital Signs: Last Vital Signs Temp Pulse Resp BP Pulse Ox 98.6 F 120 H 24 H 134/90 97 06/01/18 08:00 06/01/18 08:00 06/01/18 08:00 06/01/18 08:00 05/31/18 23:00 Cardiovascular: Yes: Tachycardia, S1, S2 Respiratory: Yes: Mechanically Ventilated, Other (coarse breath sounds) Gastrointestinal: Yes: Soft, Distention, Other (PEG in place) Extremities:ni cyanosis/clubbing/edema Abnormal Lab Results 05/31/18 05/31/18 05/31/18 05:30 08:17 10:00 WBC 16.3 H RBC 2.51 L Hgb 7.6 L Hct 23.7 L MCHC RDW 15.9 H Plt Count 15 L* Absolute Neuts (auto) 15.3 H Neutrophils % 93.8 H Lymphocytes % 4.6 L D Lymphocytes % (Manual) 2.0 L D 3.0 L D Monocytes % 1.6 L Monocytes % (Manual) 2 L Metamyelocytes 9 H D 4 H D PT with INR INR Fibrinogen 583.0 H D ABG pH ABG pCO2 at Pt Temp ABG pO2 at Pt Temp ABG HCO3 ABG O2 Sat (Measured) ABG O2 Content ABG Base Excess Sodium Chloride Carbon Dioxide BUN Creatinine Random Glucose Calcium Crossmatch 05/31/18 05/31/18 05/31/18 10:00 10:00 10:58 WBC RBC Hgb Hct MCHC RDW Plt Count Absolute Neuts (auto) Neutrophils % Lymphocytes % Lymphocytes % (Manual) Monocytes % Monocytes % (Manual) Metamyelocytes PT with INR 13.60 H INR 1.15 H Fibrinogen ABG pH ABG pCO2 at Pt Temp 48.0 H D ABG pO2 at Pt Temp 136.0 H D ABG HCO3 30.6 H ABG O2 Sat (Measured) 99.2 H ABG O2 Content 10.3 L ABG Base Excess 6.0 H Sodium Chloride Carbon Dioxide BUN Creatinine Random Glucose Calcium Crossmatch See Detail 06/01/18 06/01/18 06/01/18 05:30 05:30 06:30 WBC 14.5 H RBC 2.30 L Hgb 6.9 L* Hct 22.1 L MCHC 31.4 L RDW Plt Count 33 L* D Absolute Neuts (auto) Neutrophils % Lymphocytes % Lymphocytes % (Manual) Monocytes % Monocytes % (Manual) Metamyelocytes PT with INR INR Fibrinogen ABG pH 7.28 L ABG pCO2 at Pt Temp 66.5 H* D ABG pO2 at Pt Temp 159.0 H* ABG HCO3 30.0 H ABG O2 Sat (Measured) 99.4 H ABG O2 Content 10.5 L ABG Base Excess 3.1 H Sodium 132 L Chloride 92 L Carbon Dioxide 33 H BUN 49 H Creatinine 1.5 H Random Glucose 233 H Calcium 6.6 L* Crossmatch CAT Scan: Report Reviewed, Image Reviewed Assessment/Plan 48F with an extensive medical history, intubated, in ICU, in septic shock secondary to bacteremia and has had multiple cardiac arrests. Problem List: Septic Shock/Klebsiella bacteremia ARDS SONAM Thrombocytopenia laryngeal Ca s/p trachestomy failure to thrive s/p PEG COPD/Asthma pericardiac effusion pleural effusion Hepatitis B multiple Cardiac arrest s Klebsiella bacteremia HIV/AIDs Plan: Suspect thrombocytopenia is likely secondary to ongoing sepsis/bacteremia/early DIC fibrinogen falling Transfuse monodonor platelets to keep > 20,000 giben ongoing fevers Higher threshold if bleeding Monitor coags Treatment of underlying etiology ongoing
[2018-05-31] MEDS: CHLORHEXIDINE GLUCONATE 4% CLEANSER FOR DECOLONIZATION TP SCH (21:51)
[2018-05-31] MEDS ORDERED: DOLUTEGRAVIR SODIUM 50 MG TABLET PO SCH (22:00)
[2018-06-01] MEDS ORDERED: PT OWN MED DRAWER 7, Y5N ONE ×4 (01:09→17:04)
[2018-06-01] MEDS: HYDROCORTISONE SOD SUCCINATE 100 MG/2 ML VIAL IVPUSH SCH ×3 (01:12→17:05)
[2018-06-01] MEDS: MEROPENEM 1 GM in DEXTROSE 5%-WATER 100 ML IVPB SCH ×3 (01:12→17:05)
[2018-06-01 06:23] LABS: HEMATOCRIT 22.1 % (32.4-45.2); MCH 30.1 pg (25.7-33.7); MCHC 31.4 g/dl (32.0-36.0); MEAN CELL VOLUME 95.7 fl (80-96); MEAN PLT VOLUME 9.4 fl (7.5-11.1); RDW 15.5 % (11.6-15.6); WHITE BLOOD COUNT 14.5 K/mm3 (4.0-10.0)
[2018-06-01] MEDS: GABAPENTIN 250 MG/5 ML ORAL SOLUTION, 470 ML BOTTLE GT SCH ×3 (06:26→21:22)
[2018-06-01] MEDS: VANCOMYCIN 1 GRAM (PRE-DOCKED) 1,000 MG/250 ML BAG IVPB SCH ×2 (06:27→14:26)
[2018-06-01] MEDS: VANCOMYCIN 250 MG/5 ML ORAL SOLUTION PO SCH ×4 (06:27→17:06)
[2018-06-01 06:46] LABS: ARTERIAL BLD GAS O2 SATURATION 99.4 % (90-98.9); ARTERIAL BLOOD GAS BASE EXCESS 3.1 meq/l (-2-2); ARTERIAL BLOOD GAS PCO2 66.5 mmHg (35-45); ARTERIAL BLOOD GAS pH 7.28 (7.35-7.45)
[2018-06-01 07:04] LABS: ANION GAP 8 MMOL/L (8-16); BLOOD UREA NITROGEN 49 mg/dL (7-18); CHLORIDE 92 mmol/L (98-107); CO2 33 mmol/L (21-32); CREATININE 1.5 mg/dL (0.55-1.3); GLUCOSE,RANDOM 233 mg/dL (74-106); POTASSIUM 3.6 mmol/L (3.5-5.1); SODIUM 132 mmol/L (136-145)
[2018-06-01 07:23] LABS: CALCIUM 6.6 mg/dL (8.5-10.1)
[2018-06-01 07:45] LABS: HEMOGLOBIN 6.9 GM/dL (10.7-15.3)
[2018-06-01 07:46] LABS: PLATELET COUNT 33 K/MM3 (134-434)
--- NOTE | 2018-06-01 09:47 | PN ---
Progress Note, Physician History of Present Illness: Doing poorly Unresponsive on ventilator Hypothermic Remains hypotensive on pressors WBC 14.5 Plt 33k BC Sensitive Klebsiella - Current Medication List Current Medications: Active Medications Acetaminophen (Tylenol Oral Solution -) 650 mg NGT Q4H PRN PRN Reason: FEVER Acetylcysteine (Mucomyst 20 Oral / Inh Use Only*) 200 mg NEB Q4H PRN PRN Reason: COUGH Albuterol Sulfate (Ventolin 0.083% Nebulizer Soln -) 1 amp NEB Q4H PRN PRN Reason: SHORT OF BREATH/WHEEZING Albuterol/Ipratropium (Duoneb -) 1 amp NEB RQID RAZ Last Admin: 05/31/18 20:50 Dose: 1 amp Artificial Tears (Lacri-Lube Eye Ointment -) 1 applic OU HS PRN PRN Reason: DRY EYES Last Admin: 05/30/18 10:08 Dose: 1 applic Artificial Tears (Artificial Tears) 1 drop OU BID PRN PRN Reason: DRY EYES Budesonide/Formoterol Fumarate (Symbicort 160/4.5mcg -) 2 puff IH BID RAZ Last Admin: 05/31/18 21:46 Dose: Not Given Chlorhexidine Gluconate (Hibiclens For Decolonization -) 1 applic TP HS RAZ Last Admin: 05/31/18 21:51 Dose: 1 applic Gabapentin (Neurontin Oral Liquid -) 250 mg GT BID RAZ Last Admin: 06/01/18 06:26 Dose: Not Given Hydrocortisone Sodium Succinate (Solu-Cortef -) 100 mg IVPUSH Q8H-IV RAZ Last Admin: 06/01/18 01:12 Dose: 100 mg Meropenem 1 gm/ Dextrose 100 mls @ 200 mls/hr IVPB Q8H-IV RAZ Last Admin: 06/01/18 01:12 Dose: 200 mls/hr Vancomycin HCl (Vancomycin (Pre-Docked)) 1,000 mg in 250 mls @ 166.667 mls/hr IVPB Q12H RAZ; Protocol Last Admin: 06/01/18 06:27 Dose: 166.667 mls/hr Dopamine HCl 400,000 mcg/ (Sodium Chloride) 250 mls @ 3.26 mls/hr IV TITR RAZ; Protocol Last Titration: 06/01/18 09:44 Dose: 4 mcg/kg/min, 6.53 mls/hr Vasopressin 50 units/ Sodium (Chloride) 100 mls @ 4 mls/hr IVPB ASDIR [facility]; Protocol Last Titration: 06/01/18 07:00 Dose: 6 units/hr, 12 mls/hr Norepinephrine Bitartrate 8, (000 mcg/ Dextrose) 500 mls @ 18.75 mls/hr IV TITR RAZ; Protocol Last Titration: 06/01/18 07:00 Dose: 16 mcg/min, 60 mls/hr Sodium Chloride (Normal Saline -) 1,000 mls @ 100 mls/hr IV ASDIR RAZ Last Admin: 05/31/18 11:42 Dose: 100 mls/hr Potassium Chloride (Potassium Chloride 10 Meq Premix Ivpb -) 10 meq in 100 mls @ 100 mls/hr IVPB Q60M [facility] Stop: 06/01/18 11:59 Mupirocin (Bactroban Ointment (For Decolonization) -) 1 applic NS BID [facility] Stop: 06/02/18 21:59 Last Admin: 05/31/18 22:01 Dose: Not Given Pantoprazole Sodium (Protonix Iv) 40 mg IVPUSH BID [facility] Last Admin: 05/31/18 22:00 Dose: 40 mg Vancomycin HCl (Vancomycin Oral Solution) 125 mg PO Q6HPO [facility] Last Admin: 06/01/18 06:27 Dose: 125 mg - Objective Vital Signs: Vital Signs Temperature 98.6 F 06/01/18 08:00 Pulse Rate 120 H 06/01/18 08:00 Respiratory Rate 24 H 06/01/18 08:00 Blood Pressure 134/90 06/01/18 08:00 O2 Sat by Pulse Oximetry (%) 98 06/01/18 07:55 Constitutional: Yes: No Distress, Cachectic Cardiovascular: Yes: Regular Rate and Rhythm, Tachycardia, S1, S2 Respiratory: Yes: Mechanically Ventilated Gastrointestinal: Yes: Normal Bowel Sounds, Soft, Distention. No: Tenderness Extremities: Yes: Other (+ cyanotic distal toes bilaterally) Edema: Yes Labs: CBC, BMP 06/01/18 05:30 06/01/18 05:30 INR, PTT INR 1.15 (0.83-1.09) H 05/31/18 10:00 Fibrinogen 583.0 mg/dL (238-498) H D 05/31/18 08:17 Assessment/Plan Septic shock Gram Negative bacteremia Respiratory failure Pneumonia Thrombocytopenia Azotemia Continue meropenem/ Vancomycin IV/po Hemodynamic/ ventilatory support Prognosis poor
[2018-06-01] MEDS: PANTOPRAZOLE SODIUM 40 MG VIAL IVPUSH SCH ×2 (09:58→21:18)
[2018-06-01] MEDS: ARTIFICIAL TEARS (POLYVINYL ALCOHOL) OPTH DROPS OU PRN (10:00)
[2018-06-01] MEDS: ALBUTEROL SO4 2.5/IPRATROPIUM 0.5 INH SOL 3 ML VIAL.NEB. NEB SCH ×4 (10:03→20:45)
[2018-06-01] MEDS: KCL 10 MEQ IVPB 10 MEQ/100 ML INFUS.BAG IVPB SCH ×2 (10:24→10:42)
[2018-06-01] MEDS: MUPIROCIN 2% TOPICAL OINTMENT FOR DECOLONIZATION NS SCH ×2 (10:25→21:17)
[2018-06-01] MEDS: BUDESONIDE/FORMETEROL FUMARATE 160/4.5 mcg INHALER IH SCH ×2 (10:26→21:18)
--- NOTE | 2018-06-01 10:37 | CON.NEURO ---
Consult Consult Specialty:: Neurology Referred by:: Dr. Scott Reason for Consultation:: Unresponsive, ? Brain ? - History of Present Illness Chief Complaint: Unresponsive History of Present Illness: 48year old woman with multiple medical problems including history of HIV/AIDS, laryngeal ca s/p tracheostomy, failure to thrive, PEG tube, Hep B, COPD/Asthma, small amount pericardial effusion noted on two ECHOs , presents to the hospital for vomiting, diarrhea, productive cough despite being on ABx, and generalized weakness. Per the chart the patient was having fevers as high as 104. Patient started to decline per the and started to get lethargic. Patient and her called Dr. Messer's office last week and she was told to come to the hospital. We are consulted as the patient is unresponsive and not overbreathing the ventilator. - History Source History Provided By: Medical Record Limitations to Obtaining History: Unresponsive - Past Medical History Cardio/Vascular: Yes: CHF Pulmonary: Yes: Asthma, Cancer (laryngeal), COPD, Other (vocal cord mass) Hepatobiliary: Yes: Hepatitis B ...LMP: 05/14/12 Infectious Disease: Yes: AIDS, HIV ENT: Yes: Other (trach in place) - Past Surgical History Additional Surgical History: tracheostomy - Alcohol/Substance Use Hx Alcohol Use: No History of Substance Use: reports: None - Smoking History Smoking history: Former smoker Have you smoked in the past 12 months: Yes Aproximately how many cigarettes per day: 20 If you are a former smoker, when did you quit?: 2016 - Social History Usual Living Arrangement: With Spouse ADL: Independent History of Recent Travel: No Home Medications - Allergies Allergies/Adverse Reactions: Allergies Allergy/AdvReac Type Severity Reaction Status Date / Time sulfamethoxazole Allergy Unknown Rash Verified 05/28/18 13:36 [From Bactrim] trimethoprim [From Bactrim] Allergy Unknown Rash Verified 05/28/18 13:36 abacavir sulfate Allergy Rash Verified 05/28/18 13:36 [From Ziagen] atazanavir sulfate Allergy Rash Verified 05/28/18 13:36 [From Reyataz] azithromycin Allergy Rash Verified 05/28/18 13:36 dapsone Allergy Rash Verified 05/28/18 13:36 - Home Medications Home Medications: Ambulatory Orders Zolpidem Tartrate [Ambien] 5 mg PO HS #30 tablet MDD 1 03/04/18 Acetaminophen [Tylenol .Regular Strength -] 650 mg PO Q6H PRN tablet 04/26/18 Acetylcysteine Po/INH 20% [Mucomyst 20 Oral / INH Use Only*] 200 mg NEB Q4HWA PRN #1 vial 05/06/18 Albuterol 0.083% Nebulizer Keyonna [Ventolin 0.083% Nebulizer Soln -] 1 neb NEB Q4H PRN #1 box MDD 6 05/06/18 Emtricitabine/Tenofovir [Truvada -] 1 tab PEG DAILY #30 tablet 05/06/18 Etravirine [Intelence -] 100 mg PEG BID #60 tablet 05/06/18 Gabapentin Liquid [Neurontin Oral Liquid -] 250 mg PO BID #1 bottle 05/06/18 Raltegravir [Isentress] 400 mg PEG BID #60 tab 05/06/18 Amoxicillin - [Amoxicillin 500mg Capsule -] 500 mg PO Q8H 05/28/18 Clonazepam [Klonopin] 1 mg GT TID PRN MDD 3 05/28/18 Mirtazapine [Remeron -] 15 mg GT DAILY 05/28/18 Prednisone 15 mg GT DAILY 05/28/18 Sertraline HCl [Zoloft] 100 mg GT AM 05/28/18 Physical Exam-Neuro Vital Signs: Vital Signs Temperature 98.1 F 06/01/18 09:30 Pulse Rate 112 H 06/01/18 09:30 Respiratory Rate 26 H 06/01/18 09:43 Blood Pressure 147/96 06/01/18 09:30 O2 Sat by Pulse Oximetry (%) 98 06/01/18 07:55 Labs: CBC, BMP 06/01/18 05:30 06/01/18 05:30 INR, PTT INR 1.15 (0.83-1.09) H 05/31/18 10:00 Fibrinogen 583.0 mg/dL (238-498) H D 05/31/18 08:17 Imaging - Results Cat Scan: Report Reviewed, Image Reviewed ("Interval Development of Mild Obstructive Hydrocephalus") Problem List - Problems (1) Coma Code(s): R40.20 - UNSPECIFIED COMA Qualifiers: Coma depth: unspecified coma depth Qualified Code(s): R40.20 - Unspecified coma (2) Diastolic CHF Code(s): I50.30 - UNSPECIFIED DIASTOLIC (CONGESTIVE) HEART FAILURE (3) Leukopenia Code(s): D72.819 - DECREASED WHITE BLOOD CELL COUNT, UNSPECIFIED (4) Pneumonia Code(s): J18.9 - PNEUMONIA, UNSPECIFIED ORGANISM Qualifiers: Pneumonia type: due to unspecified organism Laterality: right Lung location: lower lobe of lung Qualified Code(s): J18.1 - Lobar pneumonia, unspecified organism (5) Septic shock Code(s): A41.9 - SEPSIS, UNSPECIFIED ORGANISM; R65.21 - SEVERE SEPSIS WITH SEPTIC SHOCK (6) Tachycardia Code(s): R00.0 - TACHYCARDIA, UNSPECIFIED (7) Acute on chronic respiratory failure with hypoxia and hypercapnia Code(s): J96.21 - ACUTE AND CHRONIC RESPIRATORY FAILURE WITH HYPOXIA; J96.22 - ACUTE AND CHRONIC RESPIRATORY FAILURE WITH HYPERCAPNIA (8) Anxiety Code(s): F41.9 - ANXIETY DISORDER, UNSPECIFIED (9) Atypical chest pain Code(s): R07.89 - OTHER CHEST PAIN Assessment/Plan Patient in coma with minimal brainstem response. She does have very sluggish pupillary response to light which means that she is not brain at this time. We will continue to follow her with you. Overall, it would appear that her prognosis is poor. Her CT head is read as minimal obstructive hydrocephalus on the 26, but I don't think that this would account for this degree of coma, nor would the very small amount of gabapentin that she is on. 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
[2018-06-01] MEDS ORDERED: ACETAMINOPHEN 1000 MG/100 ML VIAL (NON FORMULARY) IVPB ONE (10:49)
--- NOTE | 2018-06-01 11:53 | PN ---
Progress Note (short form) - Note Progress Note: Patient seen and examined at bedside in the ICU Remains intubated and sedated Hb 6.9- 2 units PRBCs ordered by ICU team patient got 2 units of platelets yesterday platelets now 33 no events of bleeding per RN Vital Signs Temp 100.3 F H 06/01/18 10:32 Pulse 106 H 06/01/18 10:54 Resp 26 H 06/01/18 10:35 BP 136/94 06/01/18 10:54 Pulse Ox 100 06/01/18 11:14 Intake & Output 05/31/18 05/31/18 06/01/18 11:59 23:59 11:59 Intake Total 1751 3191 2667 Output Total 400 1500 Balance 1351 1691 2667 Weight 40.4 kg Intake: IV 1251 2286 1953 D5w - 1,000 ml @ 150 mls/ 900 400 hr IV .Q8H RAZ with Sodium Bicarbonate 8.4% - 150 Meq Rx#:[id number] Intropin - 400,000 Mcg In 120 111 53 Normal Saline - 240 ml @ 2 MCG/KG/MIN 3.26 mls/hr IV TITR RAZ Rx#: [id number] Levophed - 8,000 Mcg In 135 845 678 D5w - 492 ml @ 5 MCG/MIN 18.75 mls/hr IV TITR RAZ Rx#:[id number] Normal Saline - 1,000 ml 800 1122 @ 100 mls/hr IV ASDIR RAZ Rx#:[id number] Pitressin - 50 Units In 96 130 100 Normal Saline - 97.5 ml @ 2 UNITS/HR 4 mls/hr IVPB ASDIR RAZ Rx#: [id number] IVPB 500 750 714 Platelets 155 Output: Urine 400 1500 Ugarte 400 1500 Other: Voiding Method Indwelling Catheter Indwelling Catheter Bowel Movement Yes Yes Yes # Bowel Movements 1 Weight Measurement Method Built in [facility] Constitutional: Yes: Pallor, Other (intubated) Eyes: Yes: Other HENT: Yes: Other (trach in plce) Neck: Yes: Other (trach in place). No: Lymphadenopathy Cardiovascular: Yes: Tachycardia, S1, S2 Respiratory: Yes: Mechanically Ventilated, Other (coarse breath sounds) Gastrointestinal: Yes: Soft, Distention, Other (PEG in place) Integumentary: Yes: Other ( clammy) Neurological: Yes: Other (intubated) 05/31/18 06/01/18 06/01/18 10:00 05:30 05:30 WBC 14.5 H RBC 2.30 L Hgb 6.9 L* Hct 22.1 L MCV 95.7 MCHC 31.4 L RDW 15.5 Plt Count 33 L* D Sodium 132 L Potassium 3.6 Chloride 92 L Carbon Dioxide 33 H Anion Gap 8 BUN 49 H Creatinine 1.5 H Blood Type A POSITIVE Antibody Screen Negative 05/31/18 07:40 Blood Culture - Preliminary Blood - Peripheral Venous NO GROWTH OBTAINED AFTER 24 HOURS, INCUBATION TO CONTINUE FOR 4 DAYS. 05/31/18 07:40 Blood Culture - Preliminary Blood - Peripheral Venous NO GROWTH OBTAINED AFTER 24 HOURS, INCUBATION TO CONTINUE FOR 4 DAYS. 05/30/18 08:00 Urine Culture - Final Urine - Urine Ugarte NO GROWTH OBTAINED 05/30/18 12:02 Legionella Antigen - Final Urine For Antigen Detection Streptococcus pneumoniae Antigen (M - Final 05/30/18 07:00 Clostridium difficile Antigen (NEW) - Final Stool Clostridium difficile Toxin Assay - Final 05/28/18 13:53 Blood Culture - Final Blood - Peripheral Venous Klebsiella Pneumoniae 05/28/18 13:53 Blood Culture - Final Blood - Peripheral Venous Klebsiella Pneumoniae 05/28/18 14:23 Urine Culture - Final Urine - Urine Clean Catch Contaminated: Please Repeat 05/28/18 14:02 Influenza Types A,B Antigen - Final Nasopharyngeal Swab - Final 48F with an extensive medical history, intubated, in ICU, in septic shock secondary to bacteremia and has had multiple cardiac arrests. Problem List: Septic Shock Thrombocytopenia acute respiratory failure laryngeal Ca s/p trachestomy failure to thrive s/p PEG COPD/Asthma pericardiac effusion pleural effusion Hepatitis B multiple Cardiac arrest s Klebsiella bacteremia HIV/AIDs anemia Plan: Suspect thrombocytopenia is likely secondary to septic shock platelet transfusion threshold 20K. if falls below 20 thousand transfuse platelets. or if spontaneously bleeding would transfuse platelets. agree with 2 units PRBCs trend CBC trend PT/INR PTT and fibrinogen heparin subQ BID was stopped hit Ab sent and if positive will send serotonin release assay but highly doubt this is heparin induced thrombocytopenia. Will follow along with you thank you for this consultative opportunity
[2018-06-01] MEDS: SODIUM CHLORIDE 1,000 ML IV SCH (13:11)
--- NOTE | 2018-06-01 13:40 | PN ---
Physical Exam: SUBJECTIVE: Patient seen and examined. Pt. received 2 units of pRBCs starting this AM. Dopamine was decreased to OBJECTIVE: Vital Signs Period Temp Pulse Resp BP Sys/Lisa Pulse Ox Last 24 Hr 94.1 F-102.5 F 87-120 24-28 98-149/56-109 97-100 GENERAL: The patient is comatose, non-arousable to tactile or verbal stimuli. EYES: Pupils very sluggish to light, scleral ictericus ENT: Ears normal, nares patent, oropharynx with clots of blood in mouth NECK: Tracheostomy tube in place LUNGS: Coarse breath sounds, mechanical ventilation HEART: Tachycardic, regular rate and rhythm, S1, S2 without murmur, rub or gallop. ABDOMEN: Distended (more than yesterday), dull to percussion, BS+, rectal sheath draining yellow-green liquid, Ugarte draining clear urine. EXTREMITIES: 2+ dorsal pedal pulses, warm-except for distal metatarsals which were cool to touch and dusky, no edema. NEUROLOGICAL: Comatose Laboratory Results - last 24 hr 05/31/18 06/01/18 06/01/18 10:00 05:30 05:30 WBC 14.5 H RBC 2.30 L Hgb 6.9 L* Hct 22.1 L MCV 95.7 MCH 30.1 MCHC 31.4 L RDW 15.5 Plt Count 33 L* D MPV 9.4 Puncture Site ABG pH ABG pCO2 at Pt Temp ABG pO2 at Pt Temp ABG HCO3 ABG O2 Sat (Measured) ABG O2 Content ABG Base Excess Aureliano Test O2 Delivery Device Oxygen Flow Rate Vent Rate Mechanical Rate PEEP Pressure Support Vent Sodium 132 L Potassium 3.6 Chloride 92 L Carbon Dioxide 33 H Anion Gap 8 BUN 49 H Creatinine 1.5 H Creat Clearance w eGFR 36.91 Random Glucose 233 H Calcium 6.6 L* Phosphorus 4.0 Magnesium 2.0 Blood Type A POSITIVE Antibody Screen Negative Crossmatch See Detail 06/01/18 06:30 WBC RBC Hgb Hct MCV MCH MCHC RDW Plt Count MPV Puncture Site Arterial line ABG pH 7.28 L ABG pCO2 at Pt Temp 66.5 H* D ABG pO2 at Pt Temp 159.0 H* ABG HCO3 30.0 H ABG O2 Sat (Measured) 99.4 H ABG O2 Content 10.5 L ABG Base Excess 3.1 H Aureliano Test No Result Required. O2 Delivery Device Vent Oxygen Flow Rate 100 Vent Rate 24 Mechanical Rate Yes PEEP 15.0 Pressure Support Vent 300 Sodium Potassium Chloride Carbon Dioxide Anion Gap BUN Creatinine Creat Clearance w eGFR Random Glucose Calcium Phosphorus Magnesium Blood Type Antibody Screen Crossmatch Active Medications Current Medications Acetaminophen (Tylenol Oral Solution -) 650 mg NGT Q4H PRN PRN Reason: FEVER Acetylcysteine (Mucomyst 20 Oral / Inh Use Only*) 200 mg NEB Q4H PRN PRN Reason: COUGH Albuterol Sulfate (Ventolin 0.083% Nebulizer Soln -) 1 amp NEB Q4H PRN PRN Reason: SHORT OF BREATH/WHEEZING Albuterol/Ipratropium (Duoneb -) 1 amp NEB RQID RAZ Last Admin: 06/01/18 12:00 Dose: 1 amp Artificial Tears (Lacri-Lube Eye Ointment -) 1 applic OU HS PRN PRN Reason: DRY EYES Last Admin: 05/30/18 10:08 Dose: 1 applic Artificial Tears (Artificial Tears) 1 drop OU BID PRN PRN Reason: DRY EYES Budesonide/Formoterol Fumarate (Symbicort 160/4.5mcg -) 2 puff IH BID RAZ Last Admin: 06/01/18 10:26 Dose: Not Given Chlorhexidine Gluconate (Hibiclens For Decolonization -) 1 applic TP HS RAZ Last Admin: 05/31/18 21:51 Dose: 1 applic Gabapentin (Neurontin Oral Liquid -) 250 mg GT BID RAZ Last Admin: 06/01/18 10:24 Dose: 250 mg Hydrocortisone Sodium Succinate (Solu-Cortef -) 100 mg IVPUSH Q8H-IV RAZ Last Admin: 06/01/18 10:42 Dose: 100 mg Meropenem 1 gm/ Dextrose 100 mls @ 200 mls/hr IVPB Q8H-IV RAZ Last Admin: 06/01/18 09:58 Dose: 200 mls/hr Vancomycin HCl (Vancomycin (Pre-Docked)) 1,000 mg in 250 mls @ 166.667 mls/hr IVPB Q12H RAZ; Protocol Last Admin: 06/01/18 06:27 Dose: 166.667 mls/hr Dopamine HCl 400,000 mcg/ (Sodium Chloride) 250 mls @ 3.26 mls/hr IV TITR RAZ; Protocol Last Titration: 06/01/18 10:28 Dose: 0 mcg/kg/min, 0 mls/hr Vasopressin 50 units/ Sodium (Chloride) 100 mls @ 4 mls/hr IVPB ASDIR RAZ; Protocol Last Titration: 06/01/18 13:17 Dose: 5 units/hr, 10 mls/hr Norepinephrine Bitartrate 8, (000 mcg/ Dextrose) 500 mls @ 18.75 mls/hr IV TITR RAZ; Protocol Last Titration: 06/01/18 13:12 Dose: 12 mcg/min, 45 mls/hr Sodium Chloride (Normal Saline -) 1,000 mls @ 100 mls/hr IV ASDIR RAZ Last Admin: 06/01/18 13:11 Dose: 100 mls/hr Mupirocin (Bactroban Ointment (For Decolonization) -) 1 applic NS BID RAZ Stop: 06/02/18 21:59 Last Admin: 06/01/18 10:25 Dose: 1 applic Pantoprazole Sodium (Protonix Iv) 40 mg IVPUSH BID RAZ Last Admin: 06/01/18 09:58 Dose: 40 mg Vancomycin HCl (Vancomycin Oral Solution) 125 mg PO Q6HPO RAZ Last Admin: 06/01/18 12:32 Dose: 125 mg Home Medications Medication Instructions Recorded Zolpidem Tartrate [Ambien] 5 mg PO HS #30 tablet MDD 1 03/04/18 Acetaminophen [Tylenol .Regular 650 mg PO Q6H PRN tablet 04/26/18 Strength -] Acetylcysteine Po/INH 20% 200 mg NEB Q4HWA PRN #1 vial 05/06/18 [Mucomyst 20 Oral / INH Use Only*] Albuterol 0.083% Nebulizer Keyonna 1 neb NEB Q4H PRN #1 box MDD 6 05/06/18 [Ventolin 0.083% Nebulizer Soln -] Emtricitabine/Tenofovir [Truvada -] 1 tab PEG DAILY #30 tablet 05/06/18 Etravirine [Intelence -] 100 mg PEG BID #60 tablet 05/06/18 Gabapentin Liquid [Neurontin Oral 250 mg PO BID #1 bottle 05/06/18 Liquid -] Raltegravir [Isentress] 400 mg PEG BID #60 tab 05/06/18 Amoxicillin - [Amoxicillin 500mg 500 mg PO Q8H 05/28/18 Capsule -] Clonazepam [Klonopin] 1 mg GT TID PRN MDD 3 05/28/18 Mirtazapine [Remeron -] 15 mg GT DAILY 05/28/18 Prednisone 15 mg GT DAILY 05/28/18 Sertraline HCl [Zoloft] 100 mg GT AM 05/28/18 ASSESSMENT/PLAN: Pt is a 48 y/o F HIV/AIDS, laryngeal ca s/p tracheostomy, failure to thrive, PEG tube, Hep B, COPD, Asthma, positive C-diff (05/21) BIBA for SOB/increased mucus/fatigue for 7-10 days. She is admitted to ICU for acute hypoxic respiratory failure. Coded three times in the ICU and now remains intubated. #Pulmonology -Acute hypoxic respiratory failure secondary to right lower lobe PNA Intubated Settings @ A/C: 28/300/90/15. Low tidal volume 6ml/kg with a high PEEP Continue IV Meropenem 1gm Q8H Day 4 Albuterol PRN Duoneb QID #Infectious Disease -Right lower lobe pneumonia w/ associated bacteremia BCx. positive Klebsiella pneumonia f/u Rpt. BCx. as Pt. had temp to 103 today -AIDS on HAART therapy c/w Truvada, Etravirine, Raltegravir #Cardiovascular -Hypotension c/w 3 pressors: Levophed: 20; Dopa:decreased to 8; Vaso: decreased to 4 Units Echo 04/20: Small pericardial effusion < 1cm -Thrombocytopenia Fibrinogen: 583 (high) Threshold for transfusion of platelets 20k Platelets 17k-->15k-->33k received 4 units platelets received 2 units pRBCs f/u CBC after transfusion #Gastroenterology -Bilious vomiting and watery diarrhea this morning Patient was treated for C. diff on 05/21/18; 05/30/2018: positive C. diff organisms but negative for Ag toxins Continue Continue PO and IV Vancomycin Q6H Day 5 #Nephrology -SONAM Cr. 1.5 (baseline creatinine 1.1) c/w IVF Avoid nephrotoxic drugs Ugarte in place-draining beka colored urine #F/E/N IV NS with sodium bicarb @ 100 mls/hr Electrolytes: Hypocalcemia 6.6 NPO #Ppx. For DVT: Hold A/C as Pt. is thrombocytopenic For GI: IV Protonix Visit type - Emergency Visit Emergency Visit: Yes ED Registration Date: 05/28/18 Care time: The patient presented to the Emergency Department on the above date and was hospitalized for further evaluation of their emergent condition. - New Patient This patient is new to me today: No - Critical Care Critical Care patient: Yes Total Critical Care Time (in minutes): 36 Critical Care Statement: The care of this patient involved high complexity decision making to prevent further life threatening deterioration of the patient 's condition and/or to evaluate & treat vital organ system(s) failure or risk of failure. - Discharge Referral Referred to [facility] Med P.C.: No
--- NOTE | 2018-06-01 13:52 | PN ---
Teaching Attending Note Name of Resident: Aliyah Whelan ATTENDING PHYSICIAN STATEMENT I saw and evaluated the patient. I reviewed the resident's note and discussed the case with the resident. I agree with the resident's findings and plan as documented. SUBJECTIVE: Pt seen and examined in the ICU. Remains unresponsive off sedation. Off dopamine gtt but still on levophed and vasopressin gtts. OBJECTIVE: Vital Signs Period Temp Pulse Resp BP Sys/Lisa Pulse Ox Last 24 Hr 94.1 F-102.5 F 87-120 24-28 98-149/56-109 97-100 Intake & Output 05/29/18 05/30/18 05/31/18 06/01/18 23:59 23:59 23:59 23:59 Intake Total 6785 8010 4942 2667 Output Total 700 1600 1900 Balance 6085 6410 3042 2667 Weight 43.545 kg 43.545 kg 40.4 kg Gen: intubated, unresponsive Heart: RRR Lung: scattered rhonchi Abd: soft, nontender Ext: + edema, ischemic toes CBC, BMP 06/01/18 05:30 06/01/18 05:30 Active Medications Acetaminophen (Tylenol Oral Solution -) 650 mg NGT Q4H PRN PRN Reason: FEVER Acetylcysteine (Mucomyst 20 Oral / Inh Use Only*) 200 mg NEB Q4H PRN PRN Reason: COUGH Albuterol Sulfate (Ventolin 0.083% Nebulizer Soln -) 1 amp NEB Q4H PRN PRN Reason: SHORT OF BREATH/WHEEZING Albuterol/Ipratropium (Duoneb -) 1 amp NEB RQID RAZ Last Admin: 06/01/18 12:00 Dose: 1 amp Artificial Tears (Lacri-Lube Eye Ointment -) 1 applic OU HS PRN PRN Reason: DRY EYES Last Admin: 05/30/18 10:08 Dose: 1 applic Artificial Tears (Artificial Tears) 1 drop OU BID PRN PRN Reason: DRY EYES Budesonide/Formoterol Fumarate (Symbicort 160/4.5mcg -) 2 puff IH BID [facility] Last Admin: 06/01/18 10:26 Dose: Not Given Chlorhexidine Gluconate (Hibiclens For Decolonization -) 1 applic TP HS [facility] Last Admin: 05/31/18 21:51 Dose: 1 applic Gabapentin (Neurontin Oral Liquid -) 250 mg GT BID RAZ Last Admin: 06/01/18 10:24 Dose: 250 mg Hydrocortisone Sodium Succinate (Solu-Cortef -) 100 mg IVPUSH Q8H-IV RAZ Last Admin: 06/01/18 10:42 Dose: 100 mg Meropenem 1 gm/ Dextrose 100 mls @ 200 mls/hr IVPB Q8H-IV RAZ Last Admin: 06/01/18 09:58 Dose: 200 mls/hr Vancomycin HCl (Vancomycin (Pre-Docked)) 1,000 mg in 250 mls @ 166.667 mls/hr IVPB Q12H RAZ; Protocol Last Admin: 06/01/18 06:27 Dose: 166.667 mls/hr Dopamine HCl 400,000 mcg/ (Sodium Chloride) 250 mls @ 3.26 mls/hr IV TITR RAZ; Protocol Last Titration: 06/01/18 10:28 Dose: 0 mcg/kg/min, 0 mls/hr Vasopressin 50 units/ Sodium (Chloride) 100 mls @ 4 mls/hr IVPB ASDIR RAZ; Protocol Last Titration: 06/01/18 13:17 Dose: 5 units/hr, 10 mls/hr Norepinephrine Bitartrate 8, (000 mcg/ Dextrose) 500 mls @ 18.75 mls/hr IV TITR RAZ; Protocol Last Titration: 06/01/18 13:12 Dose: 12 mcg/min, 45 mls/hr Sodium Chloride (Normal Saline -) 1,000 mls @ 100 mls/hr IV ASDIR RAZ Last Admin: 06/01/18 13:11 Dose: 100 mls/hr Mupirocin (Bactroban Ointment (For Decolonization) -) 1 applic NS BID [facility] Stop: 06/02/18 21:59 Last Admin: 06/01/18 10:25 Dose: 1 applic Pantoprazole Sodium (Protonix Iv) 40 mg IVPUSH BID RAZ Last Admin: 06/01/18 09:58 Dose: 40 mg Vancomycin HCl (Vancomycin Oral Solution) 125 mg PO Q6HPO RAZ Last Admin: 06/01/18 12:32 Dose: 125 mg ASSESSMENT AND PLAN: Acute Hypoxic Respiratory Failure Pneumonia ARDS Gram Negative Bacteremia Severe Sepsis Leukopenia Acute Kidney Injury Lactic Acidosis Thrombocytopenia r/o DIC HIV/AIDS COPD h/o Laryngeal Ca s/p tracheostomy - continue antibiotics per ID - f/u cultures - continue IVF to keep CVP 8-12 - monitor urine output, creatinine - taper pressors to maintain MAP >65 - low tidal volume ventilation 6cc/kg/IBW - keep Pplat <30 - taper FiO2, PEEP to keep SpO2 >90% - allow permissive hypercapnea - monitor CBC, coags, fibrinogen level - transfuse platelets - change central line if platelets stable - hold all sedation to assess mental status - DVT/GI prophylaxis - continue ICU monitoring - prognosis poor, discussed with at bedside critical care time spent in reviewing chart, evaluating patient and formulating plan 35 min
[2018-06-01] MEDS ORDERED: VASOPRESSIN 20 UNITS/ML VIAL IV ONE (14:20)
[2018-06-01] MEDS: VASOPRESSIN 50 UNITS in SODIUM CHLORIDE 97.5 ML IVPB SCH ×2 (14:22→21:23)
--- NOTE | 2018-06-01 14:52 | PN ---
Teaching Attending Note Name of Resident: Lenny Ruano ATTENDING PHYSICIAN STATEMENT I saw and evaluated the patient. I reviewed the resident's note and discussed the case with the resident. I agree with the resident's findings and plan as documented. SUBJECTIVE: Patient is lying in bed intubated. OBJECTIVE: Vital Signs Temperature 98.4 F 06/01/18 14:00 Pulse Rate 98 H 06/01/18 14:00 Respiratory Rate 26 H 06/01/18 14:00 Blood Pressure 127/99 06/01/18 14:00 O2 Sat by Pulse Oximetry (%) 95 06/01/18 14:08 Gen:intubated on the vent. HEENT: temporal wasting, atraumatic, dry membranes, fixed and dilated. Neck: supple, no jvd Pulm: Decreased air entery BL , on the vent. Cardio: S1S2 positive, RRR. Abd: distended, positive for G-tube, BS positive Ext: no edema, 2+ pulses Neuro:unable to access CBCD WBC 14.5 K/mm3 (4.0-10.0) H 06/01/18 05:30 RBC 2.30 M/mm3 (3.60-5.2) L 06/01/18 05:30 Hgb 6.9 GM/dL (10.7-15.3) L* 06/01/18 05:30 Hct 22.1 % (32.4-45.2) L 06/01/18 05:30 MCV 95.7 fl (80-96) 06/01/18 05:30 MCHC 31.4 g/dl (32.0-36.0) L 06/01/18 05:30 RDW 15.5 % (11.6-15.6) 06/01/18 05:30 Plt Count 33 K/MM3 (134-434) L* D 06/01/18 05:30 MPV 9.4 fl (7.5-11.1) 06/01/18 05:30 CMP Sodium 132 mmol/L (136-145) L 06/01/18 05:30 Potassium 3.6 mmol/L (3.5-5.1) 06/01/18 05:30 Chloride 92 mmol/L (98-107) L 06/01/18 05:30 Carbon Dioxide 33 mmol/L (21-32) H 06/01/18 05:30 Anion Gap 8 MMOL/L (8-16) 06/01/18 05:30 BUN 49 mg/dL (7-18) H 06/01/18 05:30 Creatinine 1.5 mg/dL (0.55-1.3) H 06/01/18 05:30 Creat Clearance w eGFR 36.91 (>60) 06/01/18 05:30 Random Glucose 233 mg/dL (74-106) H 06/01/18 05:30 Calcium 6.6 mg/dL (8.5-10.1) L* 06/01/18 05:30 Total Bilirubin 0.4 mg/dL (0.2-1) 05/31/18 05:30 AST 45 U/L (15-37) H 05/31/18 05:30 ALT 18 U/L (13-61) 05/31/18 05:30 Alkaline Phosphatase 99 U/L (45-117) 05/31/18 05:30 Total Protein 4.3 g/dl (6.4-8.2) L 05/31/18 05:30 Albumin 1.3 g/dl (3.4-5.0) L 05/31/18 05:30 CARDIAC ENZYMES Troponin I < 0.02 ng/ml (0.00-0.05) 05/28/18 13:53 Current Medications Generic Name Dose Route Start Last Admin Trade Name Freq PRN Reason Stop Dose Admin Acetaminophen 650 mg 05/31/18 08:04 Tylenol Oral Solution - NGT Q4H PRN FEVER Acetylcysteine 200 mg 05/28/18 21:52 Mucomyst 20 Oral / Inh Use Only* NEB Q4H PRN COUGH Albuterol Sulfate 1 amp 05/28/18 21:35 Ventolin 0.083% Nebulizer Soln - NEB Q4H PRN SHORT OF BREATH/WHEEZING Albuterol/Ipratropium 1 amp 05/29/18 08:00 06/01/18 12:00 Duoneb - NEB 1 amp RQID RAZ Administration Artificial Tears 1 applic 05/30/18 02:00 05/30/18 10:08 Lacri-Lube Eye Ointment - OU 1 applic HS PRN Administration DRY EYES Artificial Tears 1 drop 05/31/18 08:26 Artificial Tears OU BID PRN DRY EYES Budesonide/Formoterol Fumarate 2 puff 05/28/18 22:00 06/01/18 10:26 Symbicort 160/4.5mcg - IH Not Given BID RAZ Chlorhexidine Gluconate 1 applic 05/28/18 22:00 05/31/18 21:51 Hibiclens For Decolonization - TP 1 applic HS RAZ Administration Gabapentin 250 mg 05/31/18 13:21 06/01/18 10:24 Neurontin Oral Liquid - GT 250 mg BID ARZ Administration Hydrocortisone Sodium Succinate 100 mg 05/29/18 19:30 06/01/18 10:42 Solu-Cortef - IVPUSH 100 mg Q8H-IV RAZ Administration Meropenem 1 gm/ Dextrose 100 mls @ 200 mls/hr 05/29/18 11:45 06/01/18 09:58 IVPB 200 mls/hr Q8H-IV RAZ Administration Vancomycin HCl 1,000 mg in 250 mls @ 166.667 mls/hr 05/29/18 15:23 06/01/18 14:26 Vancomycin (Pre-Docked) IVPB 166.667 mls/hr Q12H RAZ Administration Protocol Dopamine HCl 400,000 mcg/ 250 mls @ 3.26 mls/hr 05/29/18 20:30 06/01/18 10:28 Sodium Chloride IV 0 mcg/kg/min TITR RAZ 0 mls/hr Titration Protocol 2 MCG/KG/MIN Vasopressin 50 units/ Sodium 100 mls @ 4 mls/hr 05/29/18 20:30 06/01/18 14:22 Chloride IVPB 4 units/hr ASDIR RAZ 8 mls/hr Administration Protocol 2 UNITS/HR Norepinephrine Bitartrate 8, 500 mls @ 18.75 mls/hr 05/29/18 20:30 06/01/18 14:00 000 mcg/ Dextrose IV 10 mcg/min TITR RAZ 37.5 mls/hr Titration Protocol 5 MCG/MIN Sodium Chloride 1,000 mls @ 100 mls/hr 05/31/18 11:30 06/01/18 13:11 Normal Saline - IV 100 mls/hr ASDIR RAZ Administration Mupirocin 1 applic 05/28/18 22:00 06/01/18 10:25 Bactroban Ointment (For Decolonization) - NS 06/02/18 21:59 1 applic BID RAZ Administration Pantoprazole Sodium 40 mg 05/30/18 12:00 06/01/18 09:58 Protonix Iv IVPUSH 40 mg BID RAZ Administration Vancomycin HCl 125 mg 05/29/18 18:00 06/01/18 12:32 Vancomycin Oral Solution PO 125 mg Q6HPO RAZ Administration Home Medications Medication Instructions Recorded Zolpidem Tartrate [Ambien] 5 mg PO HS #30 tablet MDD 1 03/04/18 Acetaminophen [Tylenol .Regular 650 mg PO Q6H PRN tablet 04/26/18 Strength -] Acetylcysteine Po/INH 20% 200 mg NEB Q4HWA PRN #1 vial 05/06/18 [Mucomyst 20 Oral / INH Use Only*] Albuterol 0.083% Nebulizer Keyonna 1 neb NEB Q4H PRN #1 box MDD 6 05/06/18 [Ventolin 0.083% Nebulizer Soln -] Emtricitabine/Tenofovir [Truvada -] 1 tab PEG DAILY #30 tablet 05/06/18 Etravirine [Intelence -] 100 mg PEG BID #60 tablet 05/06/18 Gabapentin Liquid [Neurontin Oral 250 mg PO BID #1 bottle 05/06/18 Liquid -] Raltegravir [Isentress] 400 mg PEG BID #60 tab 05/06/18 Amoxicillin - [Amoxicillin 500mg 500 mg PO Q8H 05/28/18 Capsule -] Clonazepam [Klonopin] 1 mg GT TID PRN MDD 3 05/28/18 Mirtazapine [Remeron -] 15 mg GT DAILY 05/28/18 Prednisone 15 mg GT DAILY 05/28/18 Sertraline HCl [Zoloft] 100 mg GT AM 05/28/18 Microbiology 05/31/18 07:40 Blood - Peripheral Venous Blood Culture - Preliminary NO GROWTH OBTAINED AFTER 24 HOURS, INCUBATION TO CONTINUE FOR 4 DAYS. 05/31/18 07:40 Blood - Peripheral Venous Blood Culture - Preliminary NO GROWTH OBTAINED AFTER 24 HOURS, INCUBATION TO CONTINUE FOR 4 DAYS. 05/30/18 08:00 Urine - Urine Ugarte Urine Culture - Final NO GROWTH OBTAINED 05/30/18 12:02 Urine For Antigen Detection Legionella Antigen - Final 05/30/18 12:02 Urine For Antigen Detection Streptococcus pneumoniae Antigen (M - Final 05/30/18 07:00 Stool Clostridium difficile Antigen (NEW) - Final 05/30/18 07:00 Stool Clostridium difficile Toxin Assay - Final 05/28/18 13:53 Blood - Peripheral Venous Blood Culture - Final Klebsiella Pneumoniae 05/28/18 13:53 Blood - Peripheral Venous Blood Culture - Final Klebsiella Pneumoniae 05/28/18 14:23 Urine - Urine Clean Catch Urine Culture - Final Contaminated: Please Repeat 05/28/18 14:02 Nasopharyngeal Swab Influenza Types A,B Antigen - Final 05/28/18 14:02 Nasopharyngeal Swab - Final ASSESSMENT AND PLAN: Pt is a 48 y/o F HIV/AIDS, laryngeal ca s/p tracheostomy, failure to thrive, PEG tube, Hep B, COPD, Asthma, positive C-diff (05/21) for SOB/increased mucus/ fatigue for 7-10 days. She is admitted to ICU for acute hypoxic respiratory failure. #Acute hypoxemic respiratory failure s/p intubation s/p cardiac arrest x2, on pressors. Continue current therapy. Pulm.on the case per ICU team. #Septic shock with Gram Negative Bacteremia , Klebsiella Pneumoniae with thrombocytopenia , on pressors continue ,further management per icu team #ARDS due to severe sepsis, penumonia/Gram negative Bacteremia , ID on the case , on IV Abx Vancomycin/meropenen #C-diff colitis on po Vancomycin 125mg per G-tube q6h #PNA on IV Vanc/meropenem ,continue ID on the case #HIT 2 is being ruled out. hem/onc is on the case. #SONAM with [employer] 1.5 ( baseline 0.3) on iv NS # Hypokalemia repleted due to severe diarrhea. #HIV/Aids; with Truvada, Etravirine, Isentress # H/o Laryngeal Ca s/p tracheostomy #Peg tube , npo #PPx : discontinued for possible Hit2 continue to monitor in ICU
--- NOTE | 2018-06-01 15:02 | PN ---
Physical Exam: SUBJECTIVE: Patient seen and examined at bedside this morning. Intubated, no sedation. As per nursing and family, patient still has no movement. Palliative care team in the case. No fevers overnight. Platelet has increased to 33 s/p 1 unit. Spontaneous breathing trial done this morning. Patient has spontaneous breathing. For central line placement today. Settings @ A/C: 26/300/70/10. Patient maintains O2 satn >92%. Vasopressors decreased. On Norepi:16; Vaso:6 Units; Dopamine drip off I/O: 4942/1900 OBJECTIVE: Vital Signs Period Temp Pulse Resp BP Sys/Lisa Pulse Ox Last 24 Hr 98.0 F-103 F 101-118 24-110 98-129/70-94 95-97 GENERAL: The patient is intubated and unresponsive. Eyes open, no pupillary reflex. LUNGS: +scattered rhonchi bilaterally HEART: Regular rate and rhythm, without murmur, rub or gallop. ABDOMEN: +distended, +BS EXTREMITIES: +2 peripheral edema, +cyanotic toes Laboratory Results - last 24 hr 05/31/18 06/01/18 06/01/18 10:00 05:30 05:30 WBC 14.5 H RBC 2.30 L Hgb 6.9 L* Hct 22.1 L MCV 95.7 MCH 30.1 MCHC 31.4 L RDW 15.5 Plt Count 33 L* D MPV 9.4 Puncture Site ABG pH ABG pCO2 at Pt Temp ABG pO2 at Pt Temp ABG HCO3 ABG O2 Sat (Measured) ABG O2 Content ABG Base Excess Aureliano Test O2 Delivery Device Oxygen Flow Rate Vent Rate Mechanical Rate PEEP Pressure Support Vent Sodium 132 L Potassium 3.6 Chloride 92 L Carbon Dioxide 33 H Anion Gap 8 BUN 49 H Creatinine 1.5 H Creat Clearance w eGFR 36.91 Random Glucose 233 H Calcium 6.6 L* Phosphorus 4.0 Magnesium 2.0 Blood Type A POSITIVE Antibody Screen Negative Crossmatch See Detail 06/01/18 06:30 WBC RBC Hgb Hct MCV MCH MCHC RDW Plt Count MPV Puncture Site Arterial line ABG pH 7.28 L ABG pCO2 at Pt Temp 66.5 H* D ABG pO2 at Pt Temp 159.0 H* ABG HCO3 30.0 H ABG O2 Sat (Measured) 99.4 H ABG O2 Content 10.5 L ABG Base Excess 3.1 H Aureliano Test No Result Required. O2 Delivery Device Vent Oxygen Flow Rate 100 Vent Rate 24 Mechanical Rate Yes PEEP 15.0 Pressure Support Vent 300 Sodium Potassium Chloride Carbon Dioxide Anion Gap BUN Creatinine Creat Clearance w eGFR Random Glucose Calcium Phosphorus Magnesium Blood Type Antibody Screen Crossmatch Active Medications Generic Name Dose Route Start Last Admin Trade Name Freq PRN Reason Stop Dose Admin Acetaminophen 650 mg 05/31/18 08:04 Tylenol Oral Solution - NGT Q4H PRN FEVER Acetylcysteine 200 mg 05/28/18 21:52 Mucomyst 20 Oral / Inh Use Only* NEB Q4H PRN COUGH Albuterol Sulfate 1 amp 05/28/18 21:35 Ventolin 0.083% Nebulizer Soln - NEB Q4H PRN SHORT OF BREATH/WHEEZING Albuterol/Ipratropium 1 amp 05/29/18 08:00 06/01/18 12:00 Duoneb - NEB 1 amp RQID RAZ Administration Artificial Tears 1 applic 05/30/18 02:00 05/30/18 10:08 Lacri-Lube Eye Ointment - OU 1 applic HS PRN Administration DRY EYES Artificial Tears 1 drop 05/31/18 08:26 Artificial Tears OU BID PRN DRY EYES Budesonide/Formoterol Fumarate 2 puff 05/28/18 22:00 06/01/18 10:26 Symbicort 160/4.5mcg - IH Not Given BID RAZ Chlorhexidine Gluconate 1 applic 05/28/18 22:00 05/31/18 21:51 Hibiclens For Decolonization - TP 1 applic HS RAZ Administration Gabapentin 250 mg 05/31/18 13:21 06/01/18 10:24 Neurontin Oral Liquid - GT 250 mg BID RAZ Administration Hydrocortisone Sodium Succinate 100 mg 05/29/18 19:30 06/01/18 10:42 Solu-Cortef - IVPUSH 100 mg Q8H-IV RAZ Administration Meropenem 1 gm/ Dextrose 100 mls @ 200 mls/hr 05/29/18 11:45 06/01/18 09:58 IVPB 200 mls/hr Q8H-IV RAZ Administration Vancomycin HCl 1,000 mg in 250 mls @ 166.667 mls/hr 05/29/18 15:23 06/01/18 14:26 Vancomycin (Pre-Docked) IVPB 166.667 mls/hr Q12H RAZ Administration Protocol Dopamine HCl 400,000 mcg/ 250 mls @ 3.26 mls/hr 05/29/18 20:30 06/01/18 10:28 Sodium Chloride IV 0 mcg/kg/min TITR RAZ 0 mls/hr Titration Protocol 2 MCG/KG/MIN Vasopressin 50 units/ Sodium 100 mls @ 4 mls/hr 05/29/18 20:30 06/01/18 14:22 Chloride IVPB 4 units/hr ASDIR RAZ 8 mls/hr Administration Protocol 2 UNITS/HR Norepinephrine Bitartrate 8, 500 mls @ 18.75 mls/hr 05/29/18 20:30 06/01/18 14:00 000 mcg/ Dextrose IV 10 mcg/min TITR RAZ 37.5 mls/hr Titration Protocol 5 MCG/MIN Sodium Chloride 1,000 mls @ 100 mls/hr 05/31/18 11:30 06/01/18 13:11 Normal Saline - IV 100 mls/hr ASDIR RAZ Administration Mupirocin 1 applic 05/28/18 22:00 06/01/18 10:25 Bactroban Ointment (For Decolonization) - NS 06/02/18 21:59 1 applic BID RAZ Administration Pantoprazole Sodium 40 mg 05/30/18 12:00 06/01/18 09:58 Protonix Iv IVPUSH 40 mg BID RAZ Administration Vancomycin HCl 125 mg 05/29/18 18:00 06/01/18 12:32 Vancomycin Oral Solution PO 125 mg Q6HPO RAZ Administration ASSESSMENT/PLAN: Patient is a 48 y/o female with past medical history of HIV/AIDS, laryngeal ca s /p tracheostomy, failure to thrive, PEG tube, Hep B, COPD, Asthma, positive C- diff (05/21) BIBA for SOB/increased mucus/fatigue for 7-10 days. She is admitted to ICU for acute hypoxic respiratory failure Coded three times in the ICU and now remains Intubated. #Pulmonary 1)Acute hypoxic respiratory failure secondary to right lower lobe PNA -Intubated Settings @ A/C: RR 24 / TV 300 / FiO2 70% / PEEP 10 -Continue IV Meropenem 1gm Q8H Day3 -Albuterol PRN -Duoneb QID -Solu-medrol 100mg q8h #Cardiovascular 1)Sinus tachycardia -Cardiology (Dr. Jackson) consulted. Recommendations appreciated. -Titrate off vasopressors as tolerated, beginning with lowering dose of dopamine -Serial HR and BP -On IVF -Echo (04/08/18): normal LVEF; small amount pericardial effusion, without evidence of tamponade. -Replete electrolytes. -Keep K 4-4.5, Mg 2-2.4, PO4 2.5-4.9. #Infectious Disease 1)Septic shock likely 2/2 bacteremia 2/2 Pneumonia -Blood cx - + Klebsiella pneumoniae -leukocytosis improved and no fevers overnight. -IV Tylenol q4 PRN -ID (Dr. Kee) consulted. Recommendations appreciated. -Continue IV Meropenem 1gm q8h 2)HIV on HAART -As per ID, will hold all HAART medications for now. #Gastroenterology 1)Hx of C. Difficile infection -Patient was treated for C. diff on 05/21/18; 05/30/2018: Positive c. diff Ag neg toxin -Continue Continue PO Vancomycin 125 mg Q6H Day 4 #Nephrology 1)SONAM -BUN/Cr: 49/1.5 -IV fluids -Avoid nephrotoxic agents -Ugarte in place -Monitor I/O -Daily weights 2)Hypomagnesemia : resolved -IV MgSO4 1gm given 3)Hypokalemia : K 3.6 -IV KCl given -will monitor #Hematology 1)Thrombocytopenia: Plt 33 s/p 1 unit platelet -likely 2/2 ?septic shock -PT/INR and Fibrinogen levels done -HIT antibody pending -Hematology (Dr. Dial) consulted. Recommendations appreciated. -Active bleeding in the mouth -Transfuse 2 units platelets -repeat CBC post-transfusion -will continue to monitor 2)Anemia -H/H - 6.9/22.1 -Transfuse 2 units pRBC -repeat CBC post transfusion -will continue to monitor #FEN -IV NS @100ml/hr -hypokalemia, repleted -routine bmp monitoring -NPO #Prophylaxis 1)DVT - Thrombocytopenia, will hold heparin or and AC for now 2)GI - IV Protonix 40mg BID #Disposition -full code -ICU for closer monitoring Visit type - Emergency Visit Emergency Visit: Yes ED Registration Date: 05/28/18 Care time: The patient presented to the Emergency Department on the above date and was hospitalized for further evaluation of their emergent condition. - New Patient This patient is new to me today: Yes Date on this admission: 06/01/18 - Critical Care Critical Care patient: Yes Total Critical Care Time (in minutes): 45 Critical Care Statement: The care of this patient involved high complexity decision making to prevent further life threatening deterioration of the patient 's condition and/or to evaluate & treat vital organ system(s) failure or risk of failure.
--- NOTE | 2018-06-01 15:26 | PROC ---
<Jon Escoto - Last Filed: 06/01/18 15:26> Central Line Insertion Indication: CVP Monitoring, Parenteral Nutrition, Poor Venous Access, Sepsis, Vasopressor Risks and Benefits Explained: Yes (pt sedated. explained to HCP) Consent on Chart: Yes (from HCP) Central Line: Triple Lumen Catheter Anesthesia: 1% Lidocaine Sterile Technique: Yes Ultrasound Guided Assistance: Yes Position: Right Internal Jugular Post Insertion: Yes: Chest X-Ray Ordered Sterile Dressing Applied: Yes <Jose Hyman MD - Last Filed: 06/01/18 16:04> Procedure Note Procedure: I supervised and was present during the procedure. Jose Hyman MD
--- NOTE | 2018-06-01 17:13 | PN ---
Teaching Attending Note Name of Resident: Maximiliano Tripp ATTENDING PHYSICIAN STATEMENT I saw and evaluated the patient. I reviewed the resident's note and discussed the case with the resident. I agree with the resident's findings and plan as documented. SUBJECTIVE:Patient seen and examined Not responsive to painful stimuli Maintained on pressors Gm negative sepsis with Klebsiella Last Vital Signs Temp Pulse Resp BP Pulse Ox 98.3 F 94 H 28 H 128/87 95 06/01/18 16:00 06/01/18 17:00 06/01/18 16:20 06/01/18 17:00 06/01/18 14:08 Not responsive bleeding from mouth Diminished breath sounds RSR soft abd No significant edema Tracheostomy CBC, BMP 06/01/18 05:30 06/01/18 05:30 INR, PTT INR 1.15 (0.83-1.09) H 05/31/18 10:00 Fibrinogen 583.0 mg/dL (238-498) H D 05/31/18 08:17 Current Medications Generic Name Dose Route Start Last Admin Trade Name Freq PRN Reason Stop Dose Admin Acetaminophen 650 mg 05/31/18 08:04 Tylenol Oral Solution - NGT Q4H PRN FEVER Acetylcysteine 200 mg 05/28/18 21:52 Mucomyst 20 Oral / Inh Use Only* NEB Q4H PRN COUGH Albuterol Sulfate 1 amp 05/28/18 21:35 Ventolin 0.083% Nebulizer Soln - NEB Q4H PRN SHORT OF BREATH/WHEEZING Albuterol/Ipratropium 1 amp 05/29/18 08:00 06/01/18 16:05 Duoneb - NEB 1 amp RQID RAZ Administration Artificial Tears 1 applic 05/30/18 02:00 05/30/18 10:08 Lacri-Lube Eye Ointment - OU 1 applic HS PRN Administration DRY EYES Artificial Tears 1 drop 05/31/18 08:26 06/01/18 10:00 Artificial Tears OU 1 drop BID PRN Administration DRY EYES Budesonide/Formoterol Fumarate 2 puff 05/28/18 22:00 06/01/18 10:26 Symbicort 160/4.5mcg - IH Not Given BID RAZ Chlorhexidine Gluconate 1 applic 05/28/18 22:00 05/31/18 21:51 Hibiclens For Decolonization - TP 1 applic HS RAZ Administration Gabapentin 250 mg 05/31/18 13:21 06/01/18 10:24 Neurontin Oral Liquid - GT 250 mg BID RAZ Administration Hydrocortisone Sodium Succinate 100 mg 05/29/18 19:30 06/01/18 17:05 Solu-Cortef - IVPUSH 100 mg Q8H-IV RAZ Administration Meropenem 1 gm/ Dextrose 100 mls @ 200 mls/hr 05/29/18 11:45 06/01/18 17:05 IVPB 200 mls/hr Q8H-IV RAZ Administration Vancomycin HCl 1,000 mg in 250 mls @ 166.667 mls/hr 05/29/18 15:23 06/01/18 14:26 Vancomycin (Pre-Docked) IVPB 166.667 mls/hr Q12H RAZ Administration Protocol Dopamine HCl 400,000 mcg/ 250 mls @ 3.26 mls/hr 05/29/18 20:30 06/01/18 10:28 Sodium Chloride IV 0 mcg/kg/min TITR RAZ 0 mls/hr Titration Protocol 2 MCG/KG/MIN Vasopressin 50 units/ Sodium 100 mls @ 4 mls/hr 05/29/18 20:30 06/01/18 14:22 Chloride IVPB 4 units/hr ASDIR RAZ 8 mls/hr Administration Protocol 2 UNITS/HR Norepinephrine Bitartrate 8, 500 mls @ 18.75 mls/hr 05/29/18 20:30 06/01/18 17:00 000 mcg/ Dextrose IV 6 mcg/min TITR RAZ 22.5 mls/hr Titration Protocol 5 MCG/MIN Sodium Chloride 1,000 mls @ 100 mls/hr 05/31/18 11:30 06/01/18 13:11 Normal Saline - IV 100 mls/hr ASDIR RAZ Administration Mupirocin 1 applic 05/28/18 22:00 06/01/18 10:25 Bactroban Ointment (For Decolonization) - NS 06/02/18 21:59 1 applic BID RAZ Administration Pantoprazole Sodium 40 mg 05/30/18 12:00 06/01/18 09:58 Protonix Iv IVPUSH 40 mg BID RAZ Administration Vancomycin HCl 125 mg 05/29/18 18:00 06/01/18 17:06 Vancomycin Oral Solution PO 125 mg Q6HPO RAZ Administration OBJECTIVE:Agree that sepsis likeliest etiology for thrombocytopenia. To continue with blood bank support Platelets for bleeding and if platelets < 20K. Monitor coagulation. ASSESSMENT AND PLAN:
[2018-06-01] MEDS: CHLORHEXIDINE GLUCONATE 4% CLEANSER FOR DECOLONIZATION TP SCH (21:17)
[2018-06-01] MEDS: NOREPINEPHRINE BITARTRATE 8,000 MCG in DEXTROSE 5%-WATER - 492 ML IV SCH (21:23)
[2018-06-01] MEDS: DOPAMINE HCL 400,000 MCG in SODIUM CHLORIDE 240 ML IV SCH (21:23)
[2018-06-01 21:49] LABS: HEMATOCRIT 22.4 % (32.4-45.2); HEMOGLOBIN 7.6 GM/dL (10.7-15.3); MCH 30.5 pg (25.7-33.7); MCHC 33.9 g/dl (32.0-36.0); MEAN CELL VOLUME 89.9 fl (80-96); MEAN PLT VOLUME 8.5 fl (7.5-11.1); PLATELET COUNT 46 K/MM3 (134-434); RBC 2.49 M/mm3 (3.60-5.2); RDW 17.1 % (11.6-15.6); WHITE BLOOD COUNT 10.4 K/mm3 (4.0-10.0)
[2018-06-01] MEDS ORDERED: NOREPINEPHRINE BITARTRATE 4 MG/4 ML ML IV ONE ×2 (23:26→23:28)
[2018-06-02] MEDS: VANCOMYCIN 250 MG/5 ML ORAL SOLUTION PO SCH ×4 (01:14→17:07)
[2018-06-02] MEDS: MEROPENEM 1 GM in DEXTROSE 5%-WATER 100 ML IVPB SCH ×3 (01:15→17:06)
[2018-06-02] MEDS: HYDROCORTISONE SOD SUCCINATE 100 MG/2 ML VIAL IVPUSH SCH ×3 (01:15→18:14)
[2018-06-02] MEDS: VANCOMYCIN 1 GRAM (PRE-DOCKED) 1,000 MG/250 ML BAG IVPB SCH ×2 (02:47→17:05)
[2018-06-02] MEDS ORDERED: NOREPINEPHRINE BITARTRATE 4 MG/4 ML ML IV ONE (05:47)
[2018-06-02 06:11] LABS: HEMATOCRIT 24.6 % (32.4-45.2); HEMOGLOBIN 8.2 GM/dL (10.7-15.3); MCH 30.1 pg (25.7-33.7); MCHC 33.4 g/dl (32.0-36.0); MEAN CELL VOLUME 90.3 fl (80-96); RBC 2.72 M/mm3 (3.60-5.2); RDW 17.8 % (11.6-15.6); WHITE BLOOD COUNT 11.3 K/mm3 (4.0-10.0)
[2018-06-02 06:16] LABS: PLATELET COUNT 31 K/MM3 (134-434)
[2018-06-02 06:18] LABS: INR 1.19 (0.83-1.09); PROTHROMBIN TIME (PATIENT) 14.1 SEC (9.7-13.0)
[2018-06-02 06:21] LABS: ACTIVATED PTT 24.5 SECONDS (25.2-36.5)
[2018-06-02 06:35] LABS: ARTERIAL BLD GAS O2 SATURATION 96.9 % (90-98.9); ARTERIAL BLOOD GAS BASE EXCESS 3.1 meq/l (-2-2); ARTERIAL BLOOD GAS PCO2 50.6 mmHg (35-45); ARTERIAL BLOOD GAS PO2 93.3 mmHg (80-100); ARTERIAL BLOOD GAS pH 7.37 (7.35-7.45)
[2018-06-02 06:40] LABS: ALLENS TEST POSITIVE
[2018-06-02 06:47] LABS: ANION GAP 8 MMOL/L (8-16); BLOOD UREA NITROGEN 57 mg/dL (7-18); CALCIUM 7.3 mg/dL (8.5-10.1); CHLORIDE 90 mmol/L (98-107); CO2 30 mmol/L (21-32); CREATININE 1.4 mg/dL (0.55-1.3); PHOSPHOROUS 3.8 mg/dL (2.5-4.9); POTASSIUM 3.4 mmol/L (3.5-5.1); SODIUM 129 mmol/L (136-145)
[2018-06-02 07:17] LABS: GLUCOSE,RANDOM 327 mg/dL (74-106)
[2018-06-02] MEDS: KCL 10 MEQ IVPB 10 MEQ/100 ML INFUS.BAG IVPB SCH ×2 (08:09→09:40)
[2018-06-02] MEDS ORDERED: INSULIN (NOVOLOG) ASPART 100 UNITS/ML 10ML VIAL SQ ONE (08:09)
[2018-06-02] MEDS ORDERED: VASOPRESSIN 20 UNITS/ML VIAL IV ONE (08:31)
[2018-06-02] MEDS: ALBUTEROL SO4 2.5/IPRATROPIUM 0.5 INH SOL 3 ML VIAL.NEB. NEB SCH ×4 (08:38→20:27)
[2018-06-02] MEDS: VASOPRESSIN 50 UNITS in SODIUM CHLORIDE 97.5 ML IVPB SCH (08:38)
--- NOTE | 2018-06-02 09:07 | PN ---
Progress Note, Physician Chief Complaint: Pt remains intubated; sedated. History of Present Illness: Pt is a 48yo f with PMH of HIV/AIDS, laryngeal ca s/p tracheostomy, failure to thrive, PEG tube, HepB, COPD/Asthma (s/p thoracocentesis 04/2018); small amount pericardia effusion noted on two ECHOs , BIBA for vomiting, diarrhea, increased mucus production and cough and generalized weakness. Per , pt had a tooth infection 4 days ago on Thursday, went to the dentist, was given amoxicillin and "everything went downhill". Pt started becoming lethargic, vomiting, diarrhea, cough, SOB, increased mucus production, fevers. says fevers were on and off and would get as high as 104. Pt was recently d/c from the hospital for pneumonia on 04/26. She was d/c with PICC line (cefepime). PICC line was removed 1.5 weeks ago. She takes her medications daily (crushed through PEG). says pt CD4 counts are "fine" and viral load is undetectable. Pt complains of generalized abdominal pain as well. - Current Medication List Current Medications: Active Medications Acetaminophen (Tylenol Oral Solution -) 650 mg NGT Q4H PRN PRN Reason: FEVER Acetylcysteine (Mucomyst 20 Oral / Inh Use Only*) 200 mg NEB Q4H PRN PRN Reason: COUGH Albuterol Sulfate (Ventolin 0.083% Nebulizer Soln -) 1 amp NEB Q4H PRN PRN Reason: SHORT OF BREATH/WHEEZING Albuterol/Ipratropium (Duoneb -) 1 amp NEB RQID [facility] Last Admin: 06/02/18 08:38 Dose: 1 amp Artificial Tears (Lacri-Lube Eye Ointment -) 1 applic OU HS PRN PRN Reason: DRY EYES Last Admin: 05/30/18 10:08 Dose: 1 applic Artificial Tears (Artificial Tears) 1 drop OU BID PRN PRN Reason: DRY EYES Last Admin: 06/01/18 10:00 Dose: 1 drop Budesonide/Formoterol Fumarate (Symbicort 160/4.5mcg -) 2 puff IH BID [facility] Last Admin: 06/01/18 21:18 Dose: Not Given Chlorhexidine Gluconate (Hibiclens For Decolonization -) 1 applic TP HS [facility] Last Admin: 06/01/18 21:17 Dose: 1 applic Gabapentin (Neurontin Oral Liquid -) 250 mg GT BID [facility]Z Last Admin: 06/01/18 21:22 Dose: 250 mg Hydrocortisone Sodium Succinate (Solu-Cortef -) 100 mg IVPUSH Q8H-IV RAZ Last Admin: 06/02/18 01:15 Dose: 100 mg Meropenem 1 gm/ Dextrose 100 mls @ 200 mls/hr IVPB Q8H-IV RAZ Last Admin: 06/02/18 01:15 Dose: 200 mls/hr Vancomycin HCl (Vancomycin (Pre-Docked)) 1,000 mg in 250 mls @ 166.667 mls/hr IVPB Q12H RAZ; Protocol Last Admin: 06/02/18 02:47 Dose: 166.667 mls/hr Dopamine HCl 400,000 mcg/ (Sodium Chloride) 250 mls @ 3.26 mls/hr IV TITR RAZ; Protocol Last Admin: 06/01/18 21:23 Dose: Not Given Vasopressin 50 units/ Sodium (Chloride) 100 mls @ 4 mls/hr IVPB ASDIR RAZ; Protocol Last Admin: 06/02/18 08:38 Dose: 3 units/hr, 6 mls/hr Norepinephrine Bitartrate 8, (000 mcg/ Dextrose) 500 mls @ 18.75 mls/hr IV TITR RAZ; Protocol Last Admin: 06/01/18 21:23 Dose: 2 mcg/min, 7.5 mls/hr Sodium Chloride (Normal Saline -) 1,000 mls @ 100 mls/hr IV ASDIR RAZ Last Admin: 06/01/18 13:11 Dose: 100 mls/hr Potassium Chloride (Potassium Chloride 10 Meq Premix Ivpb -) 10 meq in 100 mls @ 100 mls/hr IVPB Q60M [facility] Stop: 06/02/18 09:44 Last Admin: 06/02/18 08:09 Dose: 100 mls/hr Mupirocin (Bactroban Ointment (For Decolonization) -) 1 applic NS BID [facility] Stop: 06/02/18 21:59 Last Admin: 06/01/18 21:17 Dose: 1 applic Pantoprazole Sodium (Protonix Iv) 40 mg IVPUSH BID [facility] Last Admin: 06/01/18 21:18 Dose: 40 mg Vancomycin HCl (Vancomycin Oral Solution) 125 mg PO Q6HPO [facility] Last Admin: 06/02/18 05:38 Dose: 125 mg - Objective Vital Signs: Vital Signs Temperature 98.2 F 06/02/18 06:00 Pulse Rate 90 06/02/18 08:38 Respiratory Rate 28 H 06/02/18 08:00 Blood Pressure 107/79 06/02/18 08:38 O2 Sat by Pulse Oximetry (%) 97 06/02/18 07:33 Constitutional: Yes: Cachectic Eyes: Yes: Other (covered) HENT: Yes: Other Neck: Yes: Decreased ROM, Other Cardiovascular: Yes: Tachycardia, S1, S2 Respiratory: Yes: Intubated, Mechanically Ventilated Gastrointestinal: Yes: Soft Genitourinary: No: Anuria Breast(s): Yes: WNL Musculoskeletal: Yes: Muscle Weakness Extremities: Yes: Cold Edema: Yes Edema: LLE: 1+, RLE: 1+ Peripheral Pulses WNL: No Peripheral Pulses: Left Doralis Pedis: 1+, Right Dorsalis Pedis: 1+ Integumentary: Yes: Other (bilateral: all toes are dark blue, and cold, while the rest of feet are warm) Neurological: Yes: Unresponsive Psychiatric: Yes: Other Labs: CBC, BMP 06/02/18 05:30 06/02/18 05:30 INR, PTT INR 1.19 (0.83-1.09) H 06/02/18 05:30 Fibrinogen > 500.0 mg/dL (238-498) H 06/02/18 05:30 - ....Imaging Chest X-ray: Image Reviewed EKG: Image Reviewed Other: Image Reviewed (telemetry: sinus tachycardia) Problem List - Problems (1) Leukopenia Assessment/Plan: initially normal WBC-->leukopenia-->now leukocytotic On antibiotics. F/u with ID Code(s): D72.819 - DECREASED WHITE BLOOD CELL COUNT, UNSPECIFIED (2) Pneumonia Assessment/Plan: antibiotics per ID. Code(s): J18.9 - PNEUMONIA, UNSPECIFIED ORGANISM Qualifiers: Pneumonia type: due to unspecified organism Laterality: right Lung location: lower lobe of lung Qualified Code(s): J18.1 - Lobar pneumonia, unspecified organism (3) Acute on chronic respiratory failure with hypoxia and hypercapnia Assessment/Plan: bronchodilators, steroids, antibiotics per merchandise deliverer. Code(s): J96.21 - ACUTE AND CHRONIC RESPIRATORY FAILURE WITH HYPOXIA; J96.22 - ACUTE AND CHRONIC RESPIRATORY FAILURE WITH HYPERCAPNIA (4) COPD (chronic obstructive pulmonary disease) Code(s): J44.9 - CHRONIC OBSTRUCTIVE PULMONARY DISEASE, UNSPECIFIED (5) Hyperthyroidism Assessment/Plan: TSH WNL. Code(s): E05.90 - THYROTOXICOSIS, UNSP WITHOUT THYROTOXIC CRISIS OR STORM (6) Pericardial effusion Assessment/Plan: ECHO 05/31/2018: Low normal LVEF (50-55%); pericardial effusion reportedly increased in amount 1from mild, changed to moderate) without evidence of tamponade.Mildly reduced RVEF. Code(s): I31.3 - PERICARDIAL EFFUSION (NONINFLAMMATORY) (7) AIDS Code(s): B20 - HUMAN IMMUNODEFICIENCY VIRUS [HIV] DISEASE (8) Failure to thrive in adult Code(s): R62.7 - ADULT FAILURE TO THRIVE (9) Psychosocial stressors Code(s): Z65.8 - OTH PROBLEMS RELATED TO PSYCHOSOCIAL CIRCUMSTANCES (10) Tobacco dependence Code(s): F17.200 - NICOTINE DEPENDENCE, UNSPECIFIED, UNCOMPLICATED (11) Tracheostomy dependence Code(s): Z93.0 - TRACHEOSTOMY STATUS (12) Vitamin D deficiency Code(s): E55.9 - VITAMIN D DEFICIENCY, UNSPECIFIED (13) Tachycardia Assessment/Plan: sinus tachycardia. F/u HR (presently elevated; titrate off vasopressors as toleratd,(continue lowering dose of dopamine) and BP. On IVF with Na HCO3. ECHO 04/08/2018: normal LVEF; small amount pericaridal effusion ; subsequent ECHO, 05/31/18, shows low normal LVEF, mildly reduced RVEF, and moderate pericardial effusion without evidence of tamponade. Code(s): R00.0 - TACHYCARDIA, UNSPECIFIED (14) Septic shock Assessment/Plan: IV fluids. Antibiotics per ID. Replete electrolytes: Keep K 4-4.5, Mg 2-2.4 (will give supplement IV Mg now), PO4 2.5-4.9. Serial BP and HR; now off phenylephrine. Titrate off dopamine, norepinephrine, and vasopresssin if pt stable and tolerates the reductions. Poor prognosis; for family conference later today. Code(s): A41.9 - SEPSIS, UNSPECIFIED ORGANISM; R65.21 - SEVERE SEPSIS WITH SEPTIC SHOCK (15) Diastolic CHF Code(s): I50.30 - UNSPECIFIED DIASTOLIC (CONGESTIVE) HEART FAILURE
--- NOTE | 2018-06-02 09:59 | PN ---
Physical Exam: SUBJECTIVE: Patient seen and examined. No acute events overnight. Pt. has not been successful on daily weaning trials and is minimally triggering the vent. We have been able to titrate pressors down to Levophed: 3 mcg and Vasopressin 2 mcg. Dopamine was succesfully weaned off. Pt. maintaining MAP>65. OBJECTIVE: Vital Signs Period Temp Pulse Resp BP Sys/Lisa Pulse Ox Last 24 Hr 97.6 F-100.3 F 84-106 26-28 94-138/72-102 90-100 GENERAL: The patient is comatose, non-arousable to tactile or verbal stimuli. EYES: Pupils very sluggish to light, scleral ictericus ENT: Ears normal, nares patent, oropharynx with clots of blood in mouth NECK: Tracheostomy tube in place LUNGS: Coarse breath sounds, mechanical ventilation HEART: Tachycardic, regular rate and rhythm, S1, S2 without murmur, rub or gallop. ABDOMEN: Distended (more than yesterday), dull to percussion, BS+, rectal sheath draining yellow-green liquid, Ugarte draining clear urine. PEG site now red around site. EXTREMITIES: 2+ dorsal pedal pulses, warm-except for metatarsals which were cool to touch and dusky, no edema. NEUROLOGICAL: Comatose Laboratory Results - last 24 hr 05/31/18 06/01/18 06/02/18 10:00 21:30 05:30 WBC 10.4 H RBC 2.49 L Hgb 7.6 L Hct 22.4 L MCV 89.9 MCH 30.5 MCHC 33.9 RDW 17.1 H Plt Count 46 L D MPV 8.5 PT with INR 14.10 H INR 1.19 H PTT (Actin FS) 24.5 L Fibrinogen Puncture Site ABG pH ABG pCO2 at Pt Temp ABG pO2 at Pt Temp ABG HCO3 ABG O2 Sat (Measured) ABG O2 Content ABG Base Excess Aureliano Test O2 Delivery Device Oxygen Flow Rate Vent Mode Vent Rate PEEP Pressure Support Vent Sodium Potassium Chloride Carbon Dioxide Anion Gap BUN Creatinine Creat Clearance w eGFR Random Glucose Calcium Phosphorus Magnesium Blood Type A POSITIVE Antibody Screen Negative Crossmatch See Detail 06/02/18 06/02/18 06/02/18 05:30 05:30 05:30 WBC 11.3 H RBC 2.72 L Hgb 8.2 L Hct 24.6 L MCV 90.3 MCH 30.1 MCHC 33.4 RDW 17.8 H Plt Count 31 L* D MPV 9.0 PT with INR INR PTT (Actin FS) Fibrinogen > 500.0 H Puncture Site ABG pH ABG pCO2 at Pt Temp ABG pO2 at Pt Temp ABG HCO3 ABG O2 Sat (Measured) ABG O2 Content ABG Base Excess Aureliano Test O2 Delivery Device Oxygen Flow Rate Vent Mode Vent Rate PEEP Pressure Support Vent Sodium 129 L Potassium 3.4 L Chloride 90 L Carbon Dioxide 30 Anion Gap 8 BUN 57 H Creatinine 1.4 H Creat Clearance w eGFR 39.97 Random Glucose 327 H* Calcium 7.3 L Phosphorus 3.8 Magnesium 2.0 Blood Type Antibody Screen Crossmatch 06/02/18 06:25 WBC RBC Hgb Hct MCV MCH MCHC RDW Plt Count MPV PT with INR INR PTT (Actin FS) Fibrinogen Puncture Site Arterial line ABG pH 7.37 ABG pCO2 at Pt Temp 50.6 H D ABG pO2 at Pt Temp 93.3 D ABG HCO3 28.6 H ABG O2 Sat (Measured) 96.9 ABG O2 Content 16.0 ABG Base Excess 3.1 H Aureliano Test Positive O2 Delivery Device Mech vent Oxygen Flow Rate 70 Vent Mode A/c Vent Rate 28 PEEP 15.0 Pressure Support Vent 300 Sodium Potassium Chloride Carbon Dioxide Anion Gap BUN Creatinine Creat Clearance w eGFR Random Glucose Calcium Phosphorus Magnesium Blood Type Antibody Screen Crossmatch Active Medications Current Medications Acetaminophen (Tylenol Oral Solution -) 650 mg NGT Q4H PRN PRN Reason: FEVER Acetylcysteine (Mucomyst 20 Oral / Inh Use Only*) 200 mg NEB Q4H PRN PRN Reason: COUGH Albuterol Sulfate (Ventolin 0.083% Nebulizer Soln -) 1 amp NEB Q4H PRN PRN Reason: SHORT OF BREATH/WHEEZING Albuterol/Ipratropium (Duoneb -) 1 amp NEB RQID [facility] Last Admin: 06/02/18 08:38 Dose: 1 amp Artificial Tears (Lacri-Lube Eye Ointment -) 1 applic OU HS PRN PRN Reason: DRY EYES Last Admin: 05/30/18 10:08 Dose: 1 applic Artificial Tears (Artificial Tears) 1 drop OU BID PRN PRN Reason: DRY EYES Last Admin: 06/01/18 10:00 Dose: 1 drop Budesonide/Formoterol Fumarate (Symbicort 160/4.5mcg -) 2 puff IH BID [facility] Last Admin: 06/01/18 21:18 Dose: Not Given Chlorhexidine Gluconate (Hibiclens For Decolonization -) 1 applic TP HS [facility] Last Admin: 06/01/18 21:17 Dose: 1 applic Gabapentin (Neurontin Oral Liquid -) 250 mg GT BID [facility] Last Admin: 06/01/18 21:22 Dose: 250 mg Hydrocortisone Sodium Succinate (Solu-Cortef -) 100 mg IVPUSH Q8H-IV [facility] Last Admin: 06/02/18 01:15 Dose: 100 mg Meropenem 1 gm/ Dextrose 100 mls @ 200 mls/hr IVPB Q8H-IV [facility] Last Admin: 06/02/18 01:15 Dose: 200 mls/hr Vancomycin HCl (Vancomycin (Pre-Docked)) 1,000 mg in 250 mls @ 166.667 mls/hr IVPB Q12H [facility]; Protocol Last Admin: 06/02/18 02:47 Dose: 166.667 mls/hr Dopamine HCl 400,000 mcg/ (Sodium Chloride) 250 mls @ 3.26 mls/hr IV TITR [facility]Z; Protocol Last Admin: 06/01/18 21:23 Dose: Not Given Vasopressin 50 units/ Sodium (Chloride) 100 mls @ 4 mls/hr IVPB ASDIR RAZ; Protocol Last Admin: 06/02/18 08:38 Dose: 3 units/hr, 6 mls/hr Norepinephrine Bitartrate 8, (000 mcg/ Dextrose) 500 mls @ 18.75 mls/hr IV TITR RAZ; Protocol Last Admin: 06/01/18 21:23 Dose: 2 mcg/min, 7.5 mls/hr Sodium Chloride (Normal Saline -) 1,000 mls @ 100 mls/hr IV ASDIR RAZ Last Admin: 06/01/18 13:11 Dose: 100 mls/hr Mupirocin (Bactroban Ointment (For Decolonization) -) 1 applic NS BID [facility] Stop: 06/02/18 21:59 Last Admin: 06/01/18 21:17 Dose: 1 applic Pantoprazole Sodium (Protonix Iv) 40 mg IVPUSH BID [facility] Last Admin: 06/01/18 21:18 Dose: 40 mg Vancomycin HCl (Vancomycin Oral Solution) 125 mg PO Q6HPO [facility] Last Admin: 06/02/18 05:38 Dose: 125 mg Home Medications Medication Instructions Recorded Zolpidem Tartrate [Ambien] 5 mg PO HS #30 tablet MDD 1 03/04/18 Acetaminophen [Tylenol .Regular 650 mg PO Q6H PRN tablet 04/26/18 Strength -] Acetylcysteine Po/INH 20% 200 mg NEB Q4HWA PRN #1 vial 05/06/18 [Mucomyst 20 Oral / INH Use Only*] Albuterol 0.083% Nebulizer Keyonna 1 neb NEB Q4H PRN #1 box MDD 6 05/06/18 [Ventolin 0.083% Nebulizer Soln -] Emtricitabine/Tenofovir [Truvada -] 1 tab PEG DAILY #30 tablet 05/06/18 Etravirine [Intelence -] 100 mg PEG BID #60 tablet 05/06/18 Gabapentin Liquid [Neurontin Oral 250 mg PO BID #1 bottle 05/06/18 Liquid -] Raltegravir [Isentress] 400 mg PEG BID #60 tab 05/06/18 Amoxicillin - [Amoxicillin 500mg 500 mg PO Q8H 05/28/18 Capsule -] Clonazepam [Klonopin] 1 mg GT TID PRN MDD 3 05/28/18 Mirtazapine [Remeron -] 15 mg GT DAILY 05/28/18 Prednisone 15 mg GT DAILY 05/28/18 Sertraline HCl [Zoloft] 100 mg GT AM 05/28/18 ASSESSMENT/PLAN: Pt is a 48 y/o F HIV/AIDS, laryngeal ca s/p tracheostomy, failure to thrive, PEG tube, Hep B, COPD, Asthma, positive C-diff (05/21) BIBA for SOB/increased mucus/fatigue for 7-10 days. She is admitted to ICU for acute hypoxic respiratory failure. Coded three times in the ICU and now remains intubated. #Pulmonology -Acute hypoxic respiratory failure secondary to right lower lobe PNA Intubated Settings @ A/C: 28/300/90/15. Low tidal volume 6ml/kg with a high PEEP Continue IV Meropenem 1gm Q8H Day 5 Albuterol PRN Duoneb QID #Infectious Disease -Right lower lobe pneumonia w/ associated bacteremia BCx. positive Klebsiella pneumonia f/u Rpt. BCx. as Pt. had temp to 103 today -AIDS on HAART therapy c/w Truvada, Etravirine, Raltegravir #Cardiovascular -Hypotension c/w 2 pressors: Levophed: decreased to 3 unit; Vaso: decreased to 2 Units; weaned off dopamine; Continue to titrate off pressors as tolerated. Echo 04/20: Small pericardial effusion < 1cm -Thrombocytopenia Fibrinogen: 583 (high) Threshold for transfusion of platelets 20k Platelets 17k-->15k-->33k-->31k received 4 units platelets received 2 units pRBCs #Gastroenterology -Bilious vomiting and watery diarrhea this morning Patient was treated for C. diff on 05/21/18; 05/30/2018: positive C. diff organisms but negative for Ag toxins Continue Continue PO and IV Vancomycin Q6H Day 6 #Nephrology -SONAM Cr. 1.4 (baseline creatinine 1.1) c/w IVF Avoid nephrotoxic drugs Ugarte in place-draining beka colored urine #F/E/N IV NS with sodium bicarb @ 100 mls/hr Monitor electrolytes with goals of K:4.0-4.5; Phos: 2.5-4.9 NPO #Ppx. For DVT: Hold A/C as Pt. is thrombocytopenic. For GI: IV Protonix Visit type - Emergency Visit Emergency Visit: Yes ED Registration Date: 05/28/18 Care time: The patient presented to the Emergency Department on the above date and was hospitalized for further evaluation of their emergent condition. - New Patient This patient is new to me today: No - Critical Care Critical Care patient: Yes Total Critical Care Time (in minutes): 36 Critical Care Statement: The care of this patient involved high complexity decision making to prevent further life threatening deterioration of the patient 's condition and/or to evaluate & treat vital organ system(s) failure or risk of failure. - Discharge Referral Referred to [facility] Med P.C.: No
--- NOTE | 2018-06-02 10:13 | PN ---
Progress Note, Physician History of Present Illness: Doing poorly Unresponsive on ventilator Afebrile Remains hypotensive on pressors WBC decreased 11K Plt 31k BC Sensitive Klebsiella BC (05/31 ) no growth - Current Medication List Current Medications: Active Medications Acetaminophen (Tylenol Oral Solution -) 650 mg NGT Q4H PRN PRN Reason: FEVER Acetylcysteine (Mucomyst 20 Oral / Inh Use Only*) 200 mg NEB Q4H PRN PRN Reason: COUGH Albuterol Sulfate (Ventolin 0.083% Nebulizer Soln -) 1 amp NEB Q4H PRN PRN Reason: SHORT OF BREATH/WHEEZING Albuterol/Ipratropium (Duoneb -) 1 amp NEB RQID [facility] Last Admin: 06/02/18 08:38 Dose: 1 amp Artificial Tears (Lacri-Lube Eye Ointment -) 1 applic OU HS PRN PRN Reason: DRY EYES Last Admin: 05/30/18 10:08 Dose: 1 applic Artificial Tears (Artificial Tears) 1 drop OU BID PRN PRN Reason: DRY EYES Last Admin: 06/01/18 10:00 Dose: 1 drop Budesonide/Formoterol Fumarate (Symbicort 160/4.5mcg -) 2 puff IH BID [facility] Last Admin: 06/01/18 21:18 Dose: Not Given Chlorhexidine Gluconate (Hibiclens For Decolonization -) 1 applic TP HS [facility] Last Admin: 06/01/18 21:17 Dose: 1 applic Gabapentin (Neurontin Oral Liquid -) 250 mg GT BID [facility] Last Admin: 06/01/18 21:22 Dose: 250 mg Hydrocortisone Sodium Succinate (Solu-Cortef -) 100 mg IVPUSH Q8H-IV [facility] Last Admin: 06/02/18 01:15 Dose: 100 mg Meropenem 1 gm/ Dextrose 100 mls @ 200 mls/hr IVPB Q8H-IV [facility] Last Admin: 06/02/18 01:15 Dose: 200 mls/hr Vancomycin HCl (Vancomycin (Pre-Docked)) 1,000 mg in 250 mls @ 166.667 mls/hr IVPB Q12H [facility]; Protocol Last Admin: 06/02/18 02:47 Dose: 166.667 mls/hr Dopamine HCl 400,000 mcg/ (Sodium Chloride) 250 mls @ 3.26 mls/hr IV TITR RAZ; Protocol Last Admin: 06/01/18 21:23 Dose: Not Given Vasopressin 50 units/ Sodium (Chloride) 100 mls @ 4 mls/hr IVPB ASDIR RA[facility]; Protocol Last Admin: 06/02/18 08:38 Dose: 3 units/hr, 6 mls/hr Norepinephrine Bitartrate 8, (000 mcg/ Dextrose) 500 mls @ 18.75 mls/hr IV TITR RAZ; Protocol Last Admin: 06/01/18 21:23 Dose: 2 mcg/min, 7.5 mls/hr Sodium Chloride (Normal Saline -) 1,000 mls @ 100 mls/hr IV ASDIR RAZ Last Admin: 06/01/18 13:11 Dose: 100 mls/hr Mupirocin (Bactroban Ointment (For Decolonization) -) 1 applic NS BID [facility] Stop: 06/02/18 21:59 Last Admin: 06/01/18 21:17 Dose: 1 applic Pantoprazole Sodium (Protonix Iv) 40 mg IVPUSH BID [facility] Last Admin: 06/01/18 21:18 Dose: 40 mg Vancomycin HCl (Vancomycin Oral Solution) 125 mg PO Q6HPO [facility] Last Admin: 06/02/18 05:38 Dose: 125 mg - Objective Vital Signs: Vital Signs Temperature 98.4 F 06/02/18 10:00 Pulse Rate 88 06/02/18 10:00 Respiratory Rate 26 H 06/02/18 10:00 Blood Pressure 113/91 06/02/18 10:00 O2 Sat by Pulse Oximetry (%) 97 06/02/18 07:33 Constitutional: Yes: No Distress, Cachectic Cardiovascular: Yes: Regular Rate and Rhythm, S1, S2 Respiratory: Yes: Mechanically Ventilated Gastrointestinal: Yes: Normal Bowel Sounds, Soft. No: Tenderness Extremities: Yes: Other (+ cyanosis, distal feet bilaterally) Edema: LLE: 1+, RLE: 1+ Labs: CBC, BMP 06/02/18 05:30 06/02/18 05:30 INR, PTT INR 1.19 (0.83-1.09) H 06/02/18 05:30 Fibrinogen > 500.0 mg/dL (238-498) H 06/02/18 05:30 Assessment/Plan Septic shock Gram Negative bacteremia Respiratory failure Pneumonia Thrombocytopenia Azotemia Continue meropenem/ Vancomycin IV/po Hemodynamic/ ventilatory support Prognosis poor
[2018-06-02] MEDS: PANTOPRAZOLE SODIUM 40 MG VIAL IVPUSH SCH (10:30)
[2018-06-02] MEDS: GABAPENTIN 250 MG/5 ML ORAL SOLUTION, 470 ML BOTTLE GT SCH ×2 (10:30→22:00)
[2018-06-02] MEDS: ARTIFICIAL TEARS (POLYVINYL ALCOHOL) OPTH DROPS OU PRN (11:05)
[2018-06-02] MEDS: BUDESONIDE/FORMETEROL FUMARATE 160/4.5 mcg INHALER IH SCH ×2 (11:05→22:00)
[2018-06-02] MEDS: MUPIROCIN 2% TOPICAL OINTMENT FOR DECOLONIZATION NS SCH (11:08)
--- NOTE | 2018-06-02 11:53 | PN ---
Progress Note, Physician History of Present Illness: Pt is a 48yo f with PMH of HIV/AIDS, laryngeal ca s/p tracheostomy, failure to thrive, PEG tube, HepB, COPD/Asthma (s/p thoracocentesis 04/2018); small amount pericardia effusion noted on two ECHOs , BIBA for vomiting, diarrhea, increased mucus production and cough and generalized weakness. Per , pt had a tooth infection 4 days ago on Thursday, went to the dentist, was given amoxicillin and "everything went downhill". Pt started becoming lethargic, vomiting, diarrhea, cough, SOB, increased mucus production, fevers. says fevers were on and off and would get as high as 104. Pt was recently d/c from the hospital for pneumonia on 04/26. She was d/c with PICC line (cefepime). PICC line was removed 1.5 weeks ago. She takes her medications daily (crushed through PEG). says pt CD4 counts are "fine" and viral load is undetectable. Pt complains of generalized abdominal pain as well. - Current Medication List Current Medications: Active Medications Acetaminophen (Tylenol Oral Solution -) 650 mg NGT Q4H PRN PRN Reason: FEVER Acetylcysteine (Mucomyst 20 Oral / Inh Use Only*) 200 mg NEB Q4H PRN PRN Reason: COUGH Albuterol Sulfate (Ventolin 0.083% Nebulizer Soln -) 1 amp NEB Q4H PRN PRN Reason: SHORT OF BREATH/WHEEZING Albuterol/Ipratropium (Duoneb -) 1 amp NEB RQID [facility] Last Admin: 06/02/18 11:46 Dose: 1 amp Artificial Tears (Lacri-Lube Eye Ointment -) 1 applic OU HS PRN PRN Reason: DRY EYES Last Admin: 05/30/18 10:08 Dose: 1 applic Artificial Tears (Artificial Tears) 1 drop OU BID PRN PRN Reason: DRY EYES Last Admin: 06/02/18 11:05 Dose: 1 drop Budesonide/Formoterol Fumarate (Symbicort 160/4.5mcg -) 2 puff IH BID [facility] Last Admin: 06/02/18 11:05 Dose: Not Given Chlorhexidine Gluconate (Hibiclens For Decolonization -) 1 applic TP HS [facility] Last Admin: 06/01/18 21:17 Dose: 1 applic Gabapentin (Neurontin Oral Liquid -) 250 mg GT BID RAZ Last Admin: 06/02/18 10:30 Dose: 250 mg Hydrocortisone Sodium Succinate (Solu-Cortef -) 100 mg IVPUSH Q8H-IV RAZ Last Admin: 06/02/18 10:30 Dose: 100 mg Meropenem 1 gm/ Dextrose 100 mls @ 200 mls/hr IVPB Q8H-IV RAZ Last Admin: 06/02/18 01:15 Dose: 200 mls/hr Vancomycin HCl (Vancomycin (Pre-Docked)) 1,000 mg in 250 mls @ 166.667 mls/hr IVPB Q12H RAZ; Protocol Last Admin: 06/02/18 02:47 Dose: 166.667 mls/hr Dopamine HCl 400,000 mcg/ (Sodium Chloride) 250 mls @ 3.26 mls/hr IV TITR RAZ; Protocol Last Admin: 06/01/18 21:23 Dose: Not Given Vasopressin 50 units/ Sodium (Chloride) 100 mls @ 4 mls/hr IVPB ASDIR RAZ; Protocol Last Admin: 06/02/18 08:38 Dose: 3 units/hr, 6 mls/hr Norepinephrine Bitartrate 8, (000 mcg/ Dextrose) 500 mls @ 18.75 mls/hr IV TITR RAZ; Protocol Last Admin: 06/01/18 21:23 Dose: 2 mcg/min, 7.5 mls/hr Sodium Chloride (Normal Saline -) 1,000 mls @ 100 mls/hr IV ASDIR RAZ Last Admin: 06/01/18 13:11 Dose: 100 mls/hr Mupirocin (Bactroban Ointment (For Decolonization) -) 1 applic NS BID RAZ Stop: 06/02/18 21:59 Last Admin: 06/02/18 11:08 Dose: 1 applic Pantoprazole Sodium (Protonix Iv) 40 mg IVPUSH BID RAZ Last Admin: 06/02/18 10:30 Dose: 40 mg Vancomycin HCl (Vancomycin Oral Solution) 125 mg PO Q6HPO RAZ Last Admin: 06/02/18 05:38 Dose: 125 mg - Objective Vital Signs: Vital Signs Temperature 98.4 F 06/02/18 10:00 Pulse Rate 88 06/02/18 10:00 Respiratory Rate 26 H 06/02/18 10:00 Blood Pressure 113/91 06/02/18 10:00 O2 Sat by Pulse Oximetry (%) 97 06/02/18 07:33 Eyes: Yes: WNL, Conjunctiva Clear, EOM Intact HENT: Yes: WNL, Atraumatic, Normocephalic Neck: Yes: WNL, Supple, Trachea Midline Cardiovascular: Yes: WNL, Regular Rate and Rhythm Respiratory: Yes: CTA Bilaterally, Mechanically Ventilated Gastrointestinal: Yes: WNL, Normal Bowel Sounds Genitourinary: Yes: WNL Musculoskeletal: Yes: WNL Extremities: Yes: WNL Edema: No Integumentary: Yes: WNL ...Motor Strength: WNL Psychiatric: Yes: WNL Labs: CBC, BMP 06/02/18 05:30 06/02/18 05:30 INR, PTT INR 1.19 (0.83-1.09) H 06/02/18 05:30 Fibrinogen > 500.0 mg/dL (238-498) H 06/02/18 05:30 Assessment/Plan monica (1) Leukopenia Assessment/Plan: initially normal WBC-->leukopenia-->now leukocytotic On antibiotics. F/u with ID Code(s): D72.819 - DECREASED WHITE BLOOD CELL COUNT, UNSPECIFIED (2) Pneumonia Assessment/Plan: antibiotics per ID. Code(s): J18.9 - PNEUMONIA, UNSPECIFIED ORGANISM Qualifiers: Pneumonia type: due to unspecified organism Laterality: right Lung location: lower lobe of lung Qualified Code(s): J18.1 - Lobar pneumonia, unspecified organism (3) Acute on chronic respiratory failure with hypoxia and hypercapnia Assessment/Plan: bronchodilators, steroids, antibiotics per frame wirer. Code(s): J96.21 - ACUTE AND CHRONIC RESPIRATORY FAILURE WITH HYPOXIA; J96.22 - ACUTE AND CHRONIC RESPIRATORY FAILURE WITH HYPERCAPNIA (4) C. difficile diarrhea Assessment/Plan: hx C.difficile; f/u cultures. Code(s): A04.72 - ENTEROCOLITIS D/T CLOSTRIDIUM DIFFICILE, NOT SPCF RECUR (5) COPD (chronic obstructive pulmonary disease) Code(s): J44.9 - CHRONIC OBSTRUCTIVE PULMONARY DISEASE, UNSPECIFIED (6) Hyperthyroidism Assessment/Plan: TSH WNL. Code(s): E05.90 - THYROTOXICOSIS, UNSP WITHOUT THYROTOXIC CRISIS OR STORM (7) Pericardial effusion Assessment/Plan: ECHO 05/31/2018: Low normal LVEF (50-55%); pericardial effusion reportedly increased in amount 1from mild, changed to moderate) without evidence of tamponade.Mildly reduced RVEF. Code(s): I31.3 - PERICARDIAL EFFUSION (NONINFLAMMATORY) (8) AIDS Code(s): B20 - HUMAN IMMUNODEFICIENCY VIRUS [HIV] DISEASE (9) Failure to thrive in adult Code(s): R62.7 - ADULT FAILURE TO THRIVE (10) Psychosocial stressors Code(s): Z65.8 - OTH PROBLEMS RELATED TO PSYCHOSOCIAL CIRCUMSTANCES (11) Tobacco dependence Code(s): F17.200 - NICOTINE DEPENDENCE, UNSPECIFIED, UNCOMPLICATED (12) Tracheostomy dependence Code(s): Z93.0 - TRACHEOSTOMY STATUS (13) Vitamin D deficiency Code(s): E55.9 - VITAMIN D DEFICIENCY, UNSPECIFIED (14) Tachycardia Assessment/Plan: sinus tachycardia. F/u HR (presently elevated; titrate off vasopressors as toleratd,(continue lowering dose of dopamine) and BP. On IVF with Na HCO3. ECHO 04/08/2018: normal LVEF; small amount pericaridal effusion ; subsequent ECHO, 05/31/18, shows low normal LVEF, mildly reduced RVEF, and moderate pericardial effusion without evidence of tamponade. Code(s): R00.0 - TACHYCARDIA, UNSPECIFIED (15) Septic shock Assessment/Plan: IV fluids. Antibiotics per ID. Replete electrolytes: Keep K 4-4.5, Mg 2-2.4 (will give supplement IV Mg now), PO4 2.5-4.9. Serial BP and HR; now off phenylephrine. Titrate off dopamine, norepinephrine, and vasopresssin if pt stable and tolerates the reductions. Poor prognosis; for family conference later today. Code(s): A41.9 - SEPSIS, UNSPECIFIED ORGANISM; R65.21 - SEVERE SEPSIS WITH SEPTIC SHOCK (16) Diastolic CHF Code(s): I50.30 - UNSPECIFIED DIASTOLIC (CONGESTIVE) HEART FAILURE cc time spent 36 min
[2018-06-02] MEDS: SODIUM CHLORIDE 1,000 ML IV SCH (12:36)
--- NOTE | 2018-06-02 13:05 | PN ---
Progress Note (short form) - Note Progress Note: Patient seen and examined at bedside in the ICU Remains intubated and sedated Hb 8.2 today platelets went up to 46 last night now down to 31 bleeding from mouth has stopped per RN no events of bleeding per RN Vital Signs Temp 98.4 F 06/02/18 10:00 Pulse 86 06/02/18 12:00 Resp 28 H 06/02/18 12:30 BP 112/90 06/02/18 12:00 Pulse Ox 94 L 06/02/18 10:00 Intake & Output 06/01/18 06/02/18 06/02/18 23:59 11:59 23:59 Intake Total 2871 2222 Output Total 1300 300 Balance 1571 1922 Weight 40.4 kg Intake: IV 1186 1452 Intropin - 400,000 Mcg In 40 Normal Saline - 240 ml @ 2 MCG/KG/MIN 3.26 mls/hr IV TITR RAZ Rx#: [id number] Levophed - 8,000 Mcg In 413 180 D5w - 492 ml @ 5 MCG/MIN 18.75 mls/hr IV TITR RAZ Rx#:[id number] Normal Saline - 1,000 ml 615 1200 @ 100 mls/hr IV ASDIR RAZ Rx#:[id number] Pitressin - 50 Units In 118 72 Normal Saline - 97.5 ml @ 2 UNITS/HR 4 mls/hr IVPB ASDIR RAZ Rx#: [id number] IVPB 650 350 Packed Cells 700 Platelets 335 300 Tube Irrigant 120 Output: Urine 1300 300 Ugarte 1300 300 Other: Voiding Method Indwelling Catheter Indwelling Catheter Bowel Movement Yes Yes # Bowel Movements 1 Weight Measurement Method Built in [facility] Constitutional: Yes: Pallor, Other (intubated) Eyes: Yes: Other HENT: Yes: Other (trach in place) old dried blood in mouth Neck: Yes: Other (trach in place) Cardiovascular: Yes: Tachycardia, S1, S2. Biltaeral upper extremity edema Respiratory: Yes: Mechanically Ventilated, Other (coarse breath sounds) Gastrointestinal: Yes: Soft, Distention, Other (PEG in place with bile in the tubing) Neurological: Yes: Other (intubated) 05/31/18 06/01/18 06/02/18 10:00 21:30 05:30 WBC 10.4 H RBC 2.49 L Hgb 7.6 L Hct 22.4 L MCV 89.9 MCHC 33.9 RDW 17.1 H Plt Count 46 L D INR 1.19 H Sodium Potassium Chloride Carbon Dioxide Anion Gap BUN Creatinine Blood Type A POSITIVE Antibody Screen Negative 06/02/18 06/02/18 05:30 05:30 WBC 11.3 H RBC 2.72 L Hgb 8.2 L Hct 24.6 L MCV 90.3 MCHC 33.4 RDW 17.8 H Plt Count 31 L* D INR Sodium 129 L Potassium 3.4 L Chloride 90 L Carbon Dioxide 30 Anion Gap 8 BUN 57 H Creatinine 1.4 H Blood Type Antibody Screen 05/31/18 07:40 Blood Culture - Preliminary Blood - Peripheral Venous NO GROWTH OBTAINED AFTER 48 HOURS, INCUBATION TO CONTINUE FOR 3 DAYS. 05/31/18 07:40 Blood Culture - Preliminary Blood - Peripheral Venous NO GROWTH OBTAINED AFTER 48 HOURS, INCUBATION TO CONTINUE FOR 3 DAYS. 05/30/18 08:00 Urine Culture - Final Urine - Urine Ugarte NO GROWTH OBTAINED 05/30/18 12:02 Legionella Antigen - Final Urine For Antigen Detection Streptococcus pneumoniae Antigen (M - Final 05/30/18 07:00 Clostridium difficile Antigen (NEW) - Final Stool Clostridium difficile Toxin Assay - Final 05/28/18 13:53 Blood Culture - Final Blood - Peripheral Venous Klebsiella Pneumoniae 05/28/18 13:53 Blood Culture - Final Blood - Peripheral Venous Klebsiella Pneumoniae 05/28/18 14:23 Urine Culture - Final Urine - Urine Clean Catch Contaminated: Please Repeat 05/28/18 14:02 Influenza Types A,B Antigen - Final Nasopharyngeal Swab - Final 48F with an extensive medical history, intubated, in ICU, in septic shock secondary to bacteremia and has had multiple cardiac arrests. Problem List: Septic Shock Thrombocytopenia acute respiratory failure laryngeal Ca s/p trachestomy failure to thrive s/p PEG COPD/Asthma pericardiac effusion pleural effusion Hepatitis B multiple Cardiac arrest s Klebsiella bacteremia HIV/AIDs anemia Plan: Suspect thrombocytopenia is likely secondary to septic shock platelet transfusion threshold 20K. if falls below 20 thousand transfuse platelets. or if spontaneously bleeding would transfuse platelets. trend CBC trend PT/INR PTT and fibrinogen heparin subQ BID was stopped hit Ab sent and only if equivocal will send serotonin release assay Will follow along with you thank you for this consultative opportunity
--- NOTE | 2018-06-02 13:52 | PN ---
Teaching Attending Note Name of Resident: Aliyah Whelan ATTENDING PHYSICIAN STATEMENT I saw and evaluated the patient. I reviewed the resident's note and discussed the case with the resident. I agree with the resident's findings and plan as documented. SUBJECTIVE: Pt seen and examined in the ICU. vented, unresponsive off sedation. On dopamine and vasopressin gtts. Not initiating breaths today. OBJECTIVE: Vital Signs Period Temp Pulse Resp BP Sys/Lisa Pulse Ox Last 24 Hr 97.6 F-98.5 F 84-98 26-28 94-129/72-102 90-99 Intake & Output 05/30/18 05/31/18 06/01/18 06/02/18 23:59 23:59 23:59 23:59 Intake Total 8010 4942 5538 2222 Output Total 1600 1900 1300 300 Balance 6410 3042 4238 1922 Weight 43.545 kg 40.4 kg 40.4 kg Gen: vented, unresponsive Heart: RRR Lung: scattered rhonchi Abd: soft, nontender Ext: no edema, +ischemic toes CBC, BMP 06/02/18 05:30 06/02/18 05:30 Active Medications Acetaminophen (Tylenol Oral Solution -) 650 mg NGT Q4H PRN PRN Reason: FEVER Acetylcysteine (Mucomyst 20 Oral / Inh Use Only*) 200 mg NEB Q4H PRN PRN Reason: COUGH Albuterol Sulfate (Ventolin 0.083% Nebulizer Soln -) 1 amp NEB Q4H PRN PRN Reason: SHORT OF BREATH/WHEEZING Albuterol/Ipratropium (Duoneb -) 1 amp NEB RQID RAZ Last Admin: 06/02/18 11:46 Dose: 1 amp Artificial Tears (Lacri-Lube Eye Ointment -) 1 applic OU HS PRN PRN Reason: DRY EYES Last Admin: 05/30/18 10:08 Dose: 1 applic Artificial Tears (Artificial Tears) 1 drop OU BID PRN PRN Reason: DRY EYES Last Admin: 06/02/18 11:05 Dose: 1 drop Budesonide/Formoterol Fumarate (Symbicort 160/4.5mcg -) 2 puff IH BID RAZ Last Admin: 06/02/18 11:05 Dose: Not Given Chlorhexidine Gluconate (Hibiclens For Decolonization -) 1 applic TP HS RAZ Last Admin: 06/01/18 21:17 Dose: 1 applic Gabapentin (Neurontin Oral Liquid -) 250 mg GT BID RAZ Last Admin: 06/02/18 10:30 Dose: 250 mg Hydrocortisone Sodium Succinate (Solu-Cortef -) 100 mg IVPUSH Q8H-IV RAZ Last Admin: 06/02/18 10:30 Dose: 100 mg Meropenem 1 gm/ Dextrose 100 mls @ 200 mls/hr IVPB Q8H-IV RAZ Last Admin: 06/02/18 12:36 Dose: 200 mls/hr Vancomycin HCl (Vancomycin (Pre-Docked)) 1,000 mg in 250 mls @ 166.667 mls/hr IVPB Q12H RAZ; Protocol Last Admin: 06/02/18 02:47 Dose: 166.667 mls/hr Vasopressin 50 units/ Sodium (Chloride) 100 mls @ 4 mls/hr IVPB ASDIR RAZ; Protocol Last Admin: 06/02/18 08:38 Dose: 3 units/hr, 6 mls/hr Norepinephrine Bitartrate 8, (000 mcg/ Dextrose) 500 mls @ 18.75 mls/hr IV TITR RAZ; Protocol Last Admin: 06/01/18 21:23 Dose: 2 mcg/min, 7.5 mls/hr Sodium Chloride (Normal Saline -) 1,000 mls @ 100 mls/hr IV ASDIR RAZ Last Admin: 06/02/18 12:36 Dose: 100 mls/hr Mupirocin (Bactroban Ointment (For Decolonization) -) 1 applic NS BID RAZ Stop: 06/02/18 21:59 Last Admin: 06/02/18 11:08 Dose: 1 applic Pantoprazole Sodium (Protonix Iv) 40 mg IVPUSH BID RAZ Last Admin: 06/02/18 10:30 Dose: 40 mg Vancomycin HCl (Vancomycin Oral Solution) 125 mg PO Q6HPO RAZ Last Admin: 06/02/18 12:36 Dose: 125 mg ASSESSMENT AND PLAN: Acute Hypoxic Respiratory Failure Pneumonia ARDS Gram Negative Bacteremia Severe Sepsis Leukopenia Acute Kidney Injury Lactic Acidosis Thrombocytopenia r/o DIC HIV/AIDS COPD h/o Laryngeal Ca s/p tracheostomy - CT head noncontrast today - continue antibiotics per ID - IVF to keep CVP 8-12 - monitor urine output, creatinine - taper pressors to maintain MAP >65 - low tidal volume ventilation 6cc/kg/IBW - keep Pplat <30 - taper FiO2, PEEP to keep SpO2 >90% - allow permissive hypercapnea - monitor CBC, coags, fibrinogen level - transfuse platelets - hold all sedation to assess mental status - DVT/GI prophylaxis - continue ICU monitoring - prognosis poor, discussed with at bedside critical care time spent in reviewing chart, evaluating patient and formulating plan 35 min
--- NOTE | 2018-06-02 14:33 | PN ---
Teaching Attending Note Name of Resident: Yonatan Ohara ATTENDING PHYSICIAN STATEMENT I saw and evaluated the patient. I reviewed the resident's note and discussed the case with the resident. I agree with the resident's findings and plan as documented. SUBJECTIVE: unable to obtain hx . no events over night OBJECTIVE: trached on vent, not responsive , not sedated. non reactive pupils. minimal amount of blood inmouth CV: RRR Lungs: course breath sounds b/l Abd: abd wall edema , slightly distended, no BS Ext : black colored toes on both sides echos, xrays, head CT reviewed ASSESSMENT AND PLAN: 48 y/o lady with h/o laryngeal cancer s/p laryngectomy and tarach /PEG , COPD, recent C diff, Hep B and other medical problems who presented with SOBand was found to have acute hypoxic resp failure 1- Acute hypoxic resp failure 2/2 PNA /ARDS 2- septic shock 3- C diff colitis 4- Thrombocytopenia 5- Acute anemia 6- HIV 7- hyperglycemia 8- SONAM Plan : - cont pressors, try to taperdown vasopressin insetting of ischmia. d/w ICU staff - cont IVF - KUB - cont Abx .check vanco trough - follow HIT abs. and monitor coags - transfuse plt and RBC as needed - check BGM q 6 hr - monitor renal function and electrolytes . - neuro eval pending. Recs on new L obstructive hydrocephalus. Poor prognosis
--- NOTE | 2018-06-02 14:41 | PN ---
Physical Exam: SUBJECTIVE: Patient seen and examined at bedside this morning. Weaning trial done today,no spontaneous breathing noted. Oculovestibular reflex done with no response. No fevers overnight. Platelets at 31 s/p 2 units yesterday. H/H 8.2/24.6 s/p 2 units pRBCs. Settings @ A/C: 28/300/70/15. Patient maintains O2 satn >92%. Vasopressors decreased. On Norepi:4; Vaso:3 Units; Dopamine drip discontinued. I/O: 5538/1300 OBJECTIVE: Vital Signs Period Temp Pulse Resp BP Sys/Lisa Pulse Ox Last 24 Hr 97.6 F-98.8 F 84-98 26-28 94-129/72-102 90-99 GENERAL: The patient is intubated and unresponsive. Eyes open, Pupils nonreactive to light. No gag reflex. Negative oculovestibular reflex. LUNGS: +scattered rhonchi bilaterally HEART: Regular rate and rhythm, without murmur, rub or gallop. ABDOMEN: +distended, +BS EXTREMITIES: +2 peripheral edema, +cyanotic toes Laboratory Results - last 24 hr 05/31/18 06/01/18 06/02/18 10:00 21:30 05:22 WBC 10.4 H RBC 2.49 L Hgb 7.6 L Hct 22.4 L MCV 89.9 MCH 30.5 MCHC 33.9 RDW 17.1 H Plt Count 46 L D MPV 8.5 PT with INR INR PTT (Actin FS) Fibrinogen Puncture Site ABG pH ABG pCO2 at Pt Temp ABG pO2 at Pt Temp ABG HCO3 ABG O2 Sat (Measured) ABG O2 Content ABG Base Excess Aureliano Test O2 Delivery Device Oxygen Flow Rate Vent Mode Vent Rate PEEP Pressure Support Vent Sodium Potassium Chloride Carbon Dioxide Anion Gap BUN Creatinine Creat Clearance w eGFR POC Glucometer [phone] Random Glucose Calcium Phosphorus Magnesium Blood Type A POSITIVE Antibody Screen Negative Crossmatch See Detail 06/02/18 06/02/18 06/02/18 05:30 05:30 05:30 WBC 11.3 H RBC 2.72 L Hgb 8.2 L Hct 24.6 L MCV 90.3 MCH 30.1 MCHC 33.4 RDW 17.8 H Plt Count 31 L* D MPV 9.0 PT with INR 14.10 H INR 1.19 H PTT (Actin FS) 24.5 L Fibrinogen > 500.0 H Puncture Site ABG pH ABG pCO2 at Pt Temp ABG pO2 at Pt Temp ABG HCO3 ABG O2 Sat (Measured) ABG O2 Content ABG Base Excess Aureliano Test O2 Delivery Device Oxygen Flow Rate Vent Mode Vent Rate PEEP Pressure Support Vent Sodium Potassium Chloride Carbon Dioxide Anion Gap BUN Creatinine Creat Clearance w eGFR POC Glucometer Random Glucose Calcium Phosphorus Magnesium Blood Type Antibody Screen Crossmatch 06/02/18 06/02/18 05:30 06:25 WBC RBC Hgb Hct MCV MCH MCHC RDW Plt Count MPV PT with INR INR PTT (Actin FS) Fibrinogen Puncture Site Arterial line ABG pH 7.37 ABG pCO2 at Pt Temp 50.6 H D ABG pO2 at Pt Temp 93.3 D ABG HCO3 28.6 H ABG O2 Sat (Measured) 96.9 ABG O2 Content 16.0 ABG Base Excess 3.1 H Aureliano Test Positive O2 Delivery Device Mech vent Oxygen Flow Rate 70 Vent Mode A/c Vent Rate 28 PEEP 15.0 Pressure Support Vent 300 Sodium 129 L Potassium 3.4 L Chloride 90 L Carbon Dioxide 30 Anion Gap 8 BUN 57 H Creatinine 1.4 H Creat Clearance w eGFR 39.97 POC Glucometer Random Glucose 327 H* Calcium 7.3 L Phosphorus 3.8 Magnesium 2.0 Blood Type Antibody Screen Crossmatch Active Medications Generic Name Dose Route Start Last Admin Trade Name Freq PRN Reason Stop Dose Admin Acetaminophen 650 mg 05/31/18 08:04 Tylenol Oral Solution - NGT Q4H PRN FEVER Acetylcysteine 200 mg 05/28/18 21:52 Mucomyst 20 Oral / Inh Use Only* NEB Q4H PRN COUGH Albuterol Sulfate 1 amp 05/28/18 21:35 Ventolin 0.083% Nebulizer Soln - NEB Q4H PRN SHORT OF BREATH/WHEEZING Albuterol/Ipratropium 1 amp 05/29/18 08:00 06/02/18 11:46 Duoneb - NEB 1 amp RQID RAZ Administration Artificial Tears 1 applic 05/30/18 02:00 05/30/18 10:08 Lacri-Lube Eye Ointment - OU 1 applic HS PRN Administration DRY EYES Artificial Tears 1 drop 05/31/18 08:26 06/02/18 11:05 Artificial Tears OU 1 drop BID PRN Administration DRY EYES Budesonide/Formoterol Fumarate 2 puff 05/28/18 22:00 06/02/18 11:05 Symbicort 160/4.5mcg - IH Not Given BID RAZ Chlorhexidine Gluconate 1 applic 05/28/18 22:00 06/01/18 21:17 Hibiclens For Decolonization - TP 1 applic HS RAZ Administration Gabapentin 250 mg 05/31/18 13:21 06/02/18 10:30 Neurontin Oral Liquid - GT 250 mg BID RAZ Administration Hydrocortisone Sodium Succinate 100 mg 05/29/18 19:30 06/02/18 10:30 Solu-Cortef - IVPUSH 100 mg Q8H-IV RAZ Administration Meropenem 1 gm/ Dextrose 100 mls @ 200 mls/hr 05/29/18 11:45 06/02/18 12:36 IVPB 200 mls/hr Q8H-IV RAZ Administration Vancomycin HCl 1,000 mg in 250 mls @ 166.667 mls/hr 05/29/18 15:23 06/02/18 02:47 Vancomycin (Pre-Docked) IVPB 166.667 mls/hr Q12H RAZ Administration Protocol Vasopressin 50 units/ Sodium 100 mls @ 4 mls/hr 05/29/18 20:30 06/02/18 08:38 Chloride IVPB 3 units/hr ASDIR RAZ 6 mls/hr Administration Protocol 2 UNITS/HR Norepinephrine Bitartrate 8, 500 mls @ 18.75 mls/hr 05/29/18 20:30 06/01/18 21:23 000 mcg/ Dextrose IV 2 mcg/min TITR RAZ 7.5 mls/hr Administration Protocol 5 MCG/MIN Sodium Chloride 1,000 mls @ 100 mls/hr 05/31/18 11:30 06/02/18 12:36 Normal Saline - IV 100 mls/hr ASDIR RAZ Administration Mupirocin 1 applic 05/28/18 22:00 06/02/18 11:08 Bactroban Ointment (For Decolonization) - NS 06/02/18 21:59 1 applic BID RAZ Administration Pantoprazole Sodium 40 mg 05/30/18 12:00 06/02/18 10:30 Protonix Iv IVPUSH 40 mg BID RAZ Administration Vancomycin HCl 125 mg 05/29/18 18:00 06/02/18 12:36 Vancomycin Oral Solution PO 125 mg Q6HPO RAZ Administration ASSESSMENT/PLAN: Patient is a 48 y/o female with past medical history of HIV/AIDS, laryngeal ca s /p tracheostomy, failure to thrive, PEG tube, Hep B, COPD, Asthma, positive C- diff (05/21) BIBA for SOB/increased mucus/fatigue for 7-10 days. She is admitted to ICU for acute hypoxic respiratory failure. Coded three times in the ICU and now remains Intubated. #Pulmonary 1)Acute hypoxic respiratory failure secondary to right lower lobe PNA -Intubated Settings @ A/C: RR 28 / TV 300 / FiO2 70% / PEEP 15 -Continue IV Meropenem 1gm Q8H Day4 -Albuterol PRN -Duoneb QID -Solu-medrol 100mg q8h #Cardiovascular 1)Sinus tachycardia -Cardiology (Dr. Jackson) consulted. Recommendations appreciated. -Titrate off vasopressors as tolerated, beginning with lowering dose of dopamine -Serial HR and BP -On IVF -Echo (04/08/18): normal LVEF; small amount pericardial effusion, without evidence of tamponade. -Replete electrolytes. -Keep K 4-4.5, Mg 2-2.4, PO4 2.5-4.9. #Infectious Disease 1)Septic shock likely 2/2 bacteremia 2/2 Pneumonia -Blood cx - + Klebsiella pneumoniae -leukocytosis improving and no fevers overnight. -IV Tylenol q4 PRN -ID (Dr. Kee) consulted. Recommendations appreciated. -Continue IV Meropenem 1gm q8h and IV Vancomycin 1g q12h day 5 2)HIV on HAART -As per ID, will hold all HAART medications for now. #Gastroenterology 1)Hx of C. Difficile infection -Patient was treated for C. diff on 05/21/18; 05/30/2018: Positive c. diff Ag neg toxin -Continue Continue PO Vancomycin 125 mg Q6H Day 6 #Nephrology 1)SONAM -BUN/Cr: 57/1.4 -IV fluids -Avoid nephrotoxic agents -Ugarte in place -Monitor I/O -Daily weights 2)Hypomagnesemia : resolved -IV MgSO4 1gm given 3)Hypokalemia : K 3.4 -IV KCl given -will monitor #Hematology 1)Thrombocytopenia: Plt 31 s/p 2 units platelet -likely 2/2 septic shock -PT/INR and Fibrinogen levels done -HIT antibody pending -Hematology (Dr. Dial) consulted. Recommendations appreciated. -platelet transfusion threshold 20K. if falls below 20 thousand transfuse platelets, or if spontaneously bleeding. -trend CBC -trend PT/INR PTT and fibrinogen -heparin subQ BID was stopped -hit Ab sent and only if equivocal will send serotonin release assay -will continue to monitor 2)Anemia -H/H - 8.2/24.6 -repeat CBC post transfusion -will continue to monitor #FEN -IV NS @100ml/hr -hypokalemia, repleted -routine bmp monitoring -NPO #Prophylaxis 1)DVT - Thrombocytopenia, will hold heparin and AC for now 2)GI - IV Protonix 40mg BID #Disposition -full code -ICU for closer monitoring Visit type - Emergency Visit Emergency Visit: Yes ED Registration Date: 05/28/18 Care time: The patient presented to the Emergency Department on the above date and was hospitalized for further evaluation of their emergent condition. - New Patient This patient is new to me today: Yes Date on this admission: 06/02/18 - Critical Care Critical Care patient: Yes Total Critical Care Time (in minutes): 40 Critical Care Statement: The care of this patient involved high complexity decision making to prevent further life threatening deterioration of the patient 's condition and/or to evaluate & treat vital organ system(s) failure or risk of failure.
--- NOTE | 2018-06-02 17:00 | PN ---
Progress Note (short form) - Note Progress Note: 48year old woman with multiple medical problems including history of HIV/AIDS, laryngeal ca s/p tracheostomy, failure to thrive, PEG tube, Hep B, COPD/Asthma, small amount pericardial effusion noted on two ECHOs , presents to the hospital for vomiting, diarrhea, productive cough despite being on ABx, and generalized weakness. Per the chart the patient was having fevers as high as 104. Patient started to decline per the and started to get lethargic. Patient and her called Dr. Messer's office last week and she was told to come to the hospital. We are consulted as the patient is unresponsive and not overbreathing the ventilator. Absent corneal/occulovestibular reflexes/absent Dolls's eye movements, Pupils 4 mm, bilat and fixed. No spontaneous breaths presents. Pt. does not have barin stem function evident on exam. Prognosis for meaniongful neurologic recovery is grim. Alexy Barkley MD.
--- NOTE | 2018-06-02 19:49 | PN ---
Teaching Attending Note Name of Resident: Cruz Tripp ATTENDING PHYSICIAN STATEMENT I saw and evaluated the patient. I reviewed the resident's note and discussed the case with the resident. I agree with the resident's findings and plan as documented. SUBJECTIVE:discussed with nurs- no active bleeding pre terminal without midbrain function OBJECTIVE: ASSESSMENT AND PLAN:
[2018-06-02] MEDS: NOREPINEPHRINE BITARTRATE 8,000 MCG in DEXTROSE 5%-WATER - 492 ML IV SCH (21:00)
[2018-06-02] MEDS: CHLORHEXIDINE GLUCONATE 4% CLEANSER FOR DECOLONIZATION TP SCH (22:00)
[2018-06-03] MEDS: MEROPENEM 1 GM in DEXTROSE 5%-WATER 100 ML IVPB SCH ×3 (02:00→17:02)
[2018-06-03] MEDS: VANCOMYCIN 1 GRAM (PRE-DOCKED) 1,000 MG/250 ML BAG IVPB SCH (02:45)
[2018-06-03] MEDS: HYDROCORTISONE SOD SUCCINATE 100 MG/2 ML VIAL IVPUSH SCH ×3 (03:00→17:02)
[2018-06-03] MEDS ORDERED: PT OWN MED DRAWER 7, Y5N ONE ×3 (05:20→16:37)
[2018-06-03] MEDS ORDERED: VASOPRESSIN 20 UNITS/ML VIAL IV ONE (05:26)
[2018-06-03 05:55] LABS: HEMATOCRIT 26.1 % (32.4-45.2); HEMOGLOBIN 8.6 GM/dL (10.7-15.3); MCH 29.4 pg (25.7-33.7); MCHC 32.9 g/dl (32.0-36.0); MEAN CELL VOLUME 89.6 fl (80-96); MEAN PLT VOLUME 10.3 fl (7.5-11.1); RBC 2.91 M/mm3 (3.60-5.2); RDW 17.2 % (11.6-15.6); WHITE BLOOD COUNT 13.8 K/mm3 (4.0-10.0)
[2018-06-03 06:16] LABS: ANION GAP 9 MMOL/L (8-16); BLOOD UREA NITROGEN 62 mg/dL (7-18); CALCIUM 7.7 mg/dL (8.5-10.1); CHLORIDE 93 mmol/L (98-107); CO2 32 mmol/L (21-32); CREATININE 1.2 mg/dL (0.55-1.3); GLUCOSE,RANDOM 180 mg/dL (74-106); PHOSPHOROUS 3.1 mg/dL (2.5-4.9); POTASSIUM 3.9 mmol/L (3.5-5.1); SODIUM 134 mmol/L (136-145)
[2018-06-03 06:17] LABS: PLATELET COUNT 23 K/MM3 (134-434)
[2018-06-03] MEDS: VANCOMYCIN 250 MG/5 ML ORAL SOLUTION PO SCH ×4 (06:23→19:00)
[2018-06-03 06:34] LABS: ARTERIAL BLOOD GAS PCO2 48.2 mmHg (35-45); ARTERIAL BLOOD GAS PO2 72.4 mmHg (80-100); ARTERIAL BLOOD GAS pH 7.42 (7.35-7.45)
[2018-06-03 07:07] LABS: ALLENS TEST POSITIVE
[2018-06-03] MEDS: PANTOPRAZOLE SODIUM 40 MG VIAL IVPUSH SCH ×2 (09:28→22:00)
[2018-06-03] MEDS: GABAPENTIN 250 MG/5 ML ORAL SOLUTION, 470 ML BOTTLE GT SCH ×2 (09:29→22:00)
[2018-06-03] MEDS: BUDESONIDE/FORMETEROL FUMARATE 160/4.5 mcg INHALER IH SCH ×2 (09:29→22:00)
--- NOTE | 2018-06-03 10:16 | PN ---
Progress Note, Physician History of Present Illness: Doing poorly Unresponsive on ventilator Afebrile On levophed CXR no change - Current Medication List Current Medications: Active Medications Acetaminophen (Tylenol Oral Solution -) 650 mg NGT Q4H PRN PRN Reason: FEVER Acetylcysteine (Mucomyst 20 Oral / Inh Use Only*) 200 mg NEB Q4H PRN PRN Reason: COUGH Artificial Tears (Lacri-Lube Eye Ointment -) 1 applic OU HS PRN PRN Reason: DRY EYES Last Admin: 05/30/18 10:08 Dose: 1 applic Artificial Tears (Artificial Tears) 1 drop OU BID PRN PRN Reason: DRY EYES Last Admin: 06/02/18 11:05 Dose: 1 drop Budesonide/Formoterol Fumarate (Symbicort 160/4.5mcg -) 2 puff IH BID RAZ Last Admin: 06/03/18 09:29 Dose: Not Given Chlorhexidine Gluconate (Hibiclens For Decolonization -) 1 applic TP HS RAZ Last Admin: 06/02/18 22:00 Dose: 1 applic Gabapentin (Neurontin Oral Liquid -) 250 mg GT BID RAZ Last Admin: 06/03/18 09:29 Dose: Not Given Hydrocortisone Sodium Succinate (Solu-Cortef -) 100 mg IVPUSH Q8H-IV RAZ Last Admin: 06/03/18 09:29 Dose: 100 mg Meropenem 1 gm/ Dextrose 100 mls @ 200 mls/hr IVPB Q8H-IV RAZ Last Admin: 06/03/18 09:28 Dose: 200 mls/hr Vasopressin 50 units/ Sodium (Chloride) 100 mls @ 4 mls/hr IVPB ASDIR RAZ; Protocol Last Titration: 06/03/18 06:03 Dose: 0 units/hr, 0 mls/hr Norepinephrine Bitartrate 8, (000 mcg/ Dextrose) 500 mls @ 18.75 mls/hr IV TITR RAZ; Protocol Last Admin: 06/02/18 21:00 Dose: 3.2 mcg/min, 12 mls/hr Sodium Chloride (Normal Saline -) 1,000 mls @ 100 mls/hr IV ASDIR RAZ Last Admin: 06/02/18 12:36 Dose: 100 mls/hr Pantoprazole Sodium (Protonix Iv) 40 mg IVPUSH BID RAZ Last Admin: 06/03/18 09:28 Dose: 40 mg Vancomycin HCl (Vancomycin Oral Solution) 125 mg PO Q6HPO RAZ Last Admin: 06/03/18 06:23 Dose: Not Given - Objective Vital Signs: Vital Signs Temperature 96.3 F L 06/03/18 09:27 Pulse Rate 92 H 06/03/18 09:27 Respiratory Rate 28 H 06/03/18 09:27 Blood Pressure 100/70 06/03/18 09:27 O2 Sat by Pulse Oximetry (%) 94 L 06/03/18 09:18 Constitutional: Yes: No Distress Cardiovascular: Yes: Regular Rate and Rhythm, S1, S2 Respiratory: Yes: Mechanically Ventilated Gastrointestinal: Yes: Other (Abdomen distended) Edema: Yes Labs: CBC, BMP 06/03/18 05:30 06/03/18 05:30 INR, PTT INR 1.19 (0.83-1.09) H 06/02/18 05:30 Fibrinogen > 500.0 mg/dL (238-498) H 06/02/18 05:30 Assessment/Plan Septic shock Gram Negative bacteremia Respiratory failure Pneumonia Thrombocytopenia Azotemia Continue meropenem Hemodynamic/ ventilatory support Prognosis poor
--- NOTE | 2018-06-03 11:53 | PN ---
Progress Note, Physician Chief Complaint: Pt remains intubated; sedated. History of Present Illness: Pt is a 48yo f with PMH of HIV/AIDS, laryngeal ca s/p tracheostomy, failure to thrive, PEG tube, HepB, COPD/Asthma (s/p thoracocentesis 04/2018); small amount pericardia effusion noted on two ECHOs , BIBA for vomiting, diarrhea, increased mucus production and cough and generalized weakness. Per , pt had a tooth infection 4 days ago on Thursday, went to the dentist, was given amoxicillin and "everything went downhill". Pt started becoming lethargic, vomiting, diarrhea, cough, SOB, increased mucus production, fevers. says fevers were on and off and would get as high as 104. Pt was recently d/c from the hospital for pneumonia on 04/26. She was d/c with PICC line (cefepime). PICC line was removed 1.5 weeks ago. She takes her medications daily (crushed through PEG). says pt CD4 counts are "fine" and viral load is undetectable. Pt complains of generalized abdominal pain as well. - Current Medication List Current Medications: Active Medications Acetaminophen (Tylenol Oral Solution -) 650 mg NGT Q4H PRN PRN Reason: FEVER Acetylcysteine (Mucomyst 20 Oral / Inh Use Only*) 200 mg NEB Q4H PRN PRN Reason: COUGH Artificial Tears (Lacri-Lube Eye Ointment -) 1 applic OU HS PRN PRN Reason: DRY EYES Last Admin: 05/30/18 10:08 Dose: 1 applic Artificial Tears (Artificial Tears) 1 drop OU BID PRN PRN Reason: DRY EYES Last Admin: 06/02/18 11:05 Dose: 1 drop Budesonide/Formoterol Fumarate (Symbicort 160/4.5mcg -) 2 puff IH BID RAZ Last Admin: 06/03/18 09:29 Dose: Not Given Chlorhexidine Gluconate (Hibiclens For Decolonization -) 1 applic TP HS RAZ Last Admin: 06/02/18 22:00 Dose: 1 applic Gabapentin (Neurontin Oral Liquid -) 250 mg GT BID RAZ Last Admin: 06/03/18 09:29 Dose: Not Given Hydrocortisone Sodium Succinate (Solu-Cortef -) 100 mg IVPUSH Q8H-IV RAZ Last Admin: 06/03/18 09:29 Dose: 100 mg Meropenem 1 gm/ Dextrose 100 mls @ 200 mls/hr IVPB Q8H-IV RAZ Last Admin: 06/03/18 09:28 Dose: 200 mls/hr Vasopressin 50 units/ Sodium (Chloride) 100 mls @ 4 mls/hr IVPB ASDIR RAZ; Protocol Last Titration: 06/03/18 06:03 Dose: 0 units/hr, 0 mls/hr Norepinephrine Bitartrate 8, (000 mcg/ Dextrose) 500 mls @ 18.75 mls/hr IV TITR RAZ; Protocol Last Admin: 06/02/18 21:00 Dose: 3.2 mcg/min, 12 mls/hr Sodium Chloride (Normal Saline -) 1,000 mls @ 100 mls/hr IV ASDIR RAZ Last Admin: 06/02/18 12:36 Dose: 100 mls/hr Pantoprazole Sodium (Protonix Iv) 40 mg IVPUSH BID RAZ Last Admin: 06/03/18 09:28 Dose: 40 mg Vancomycin HCl (Vancomycin Oral Solution) 125 mg PO Q6HPO RAZ Last Admin: 06/03/18 06:23 Dose: Not Given - Objective Vital Signs: Vital Signs Temperature 96.3 F L 06/03/18 09:27 Pulse Rate 92 H 06/03/18 09:27 Respiratory Rate 28 H 06/03/18 09:27 Blood Pressure 100/70 06/03/18 09:27 O2 Sat by Pulse Oximetry (%) 94 L 06/03/18 09:18 Constitutional: Yes: Cachectic Eyes: Yes: Tearing, Other Neck: Yes: WNL Labs: CBC, BMP 06/03/18 05:30 06/03/18 05:30 INR, PTT INR 1.19 (0.83-1.09) H 06/02/18 05:30 Fibrinogen > 500.0 mg/dL (238-498) H 06/02/18 05:30 Problem List - Problems (1) Pneumonia Code(s): J18.9 - PNEUMONIA, UNSPECIFIED ORGANISM Qualifiers: Pneumonia type: due to unspecified organism Laterality: right Lung location: lower lobe of lung Qualified Code(s): J18.1 - Lobar pneumonia, unspecified organism (2) Acute on chronic respiratory failure with hypoxia and hypercapnia Code(s): J96.21 - ACUTE AND CHRONIC RESPIRATORY FAILURE WITH HYPOXIA; J96.22 - ACUTE AND CHRONIC RESPIRATORY FAILURE WITH HYPERCAPNIA (3) COPD (chronic obstructive pulmonary disease) Code(s): J44.9 - CHRONIC OBSTRUCTIVE PULMONARY DISEASE, UNSPECIFIED (4) Hyperthyroidism Code(s): E05.90 - THYROTOXICOSIS, UNSP WITHOUT THYROTOXIC CRISIS OR STORM (5) Pericardial effusion Code(s): I31.3 - PERICARDIAL EFFUSION (NONINFLAMMATORY) (6) AIDS Code(s): B20 - HUMAN IMMUNODEFICIENCY VIRUS [HIV] DISEASE (7) Failure to thrive in adult Code(s): R62.7 - ADULT FAILURE TO THRIVE (8) Psychosocial stressors Code(s): Z65.8 - OTH PROBLEMS RELATED TO PSYCHOSOCIAL CIRCUMSTANCES (9) Tobacco dependence Code(s): F17.200 - NICOTINE DEPENDENCE, UNSPECIFIED, UNCOMPLICATED (10) Tracheostomy dependence Code(s): Z93.0 - TRACHEOSTOMY STATUS (11) Vitamin D deficiency Code(s): E55.9 - VITAMIN D DEFICIENCY, UNSPECIFIED (12) Tachycardia Code(s): R00.0 - TACHYCARDIA, UNSPECIFIED (13) Septic shock Assessment/Plan: IV fluids. Antibiotics per ID. Replete electrolytes: Keep K 4-4.5, Mg 2-2.4 (will give supplement IV Mg now), PO4 2.5-4.9. Serial BP and HR; now off phenylephrine. Titrate off dopamine, norepinephrine, and vasopresssin if pt stable and tolerates the reductions. Poor prognosis; Code(s): A41.9 - SEPSIS, UNSPECIFIED ORGANISM; R65.21 - SEVERE SEPSIS WITH SEPTIC SHOCK (14) Diastolic CHF Code(s): I50.30 - UNSPECIFIED DIASTOLIC (CONGESTIVE) HEART FAILURE
--- NOTE | 2018-06-03 12:21 | PN ---
Teaching Attending Note Name of Resident: Lenny Ruano ATTENDING PHYSICIAN STATEMENT I saw and evaluated the patient. I reviewed the resident's note and discussed the case with the resident. I agree with the resident's findings and plan as documented. SUBJECTIVE: No events over night OBJECTIVE: trached on vent, not responsive , not sedated. non reactive pupils.absent corneal reflex. CV: RRR Lungs: course breath sounds b/l Abd: abd wall edema , slightly distended, no BS Ext : black colored toes on both sides( worse on L ) ASSESSMENT AND PLAN: 48 y/o lady with h/o laryngeal cancer s/p laryngectomy and tarach /PEG , COPD, recent C diff, Hep B and other medical problems who presented with SOBand was found to have acute hypoxic resp failure 1- Acute hypoxic resp failure 2/2 PNA /ARDS 2- septic shock 3- C diff colitis 4- Thrombocytopenia 5- Acute anemia 6- HIV 7- hyperglycemia 8- SONAM Plan : - cont pressor ( on levoped now ). - no brain stem reflexes. ? apnea test - cont IVf - hold vanco due to supratherapeutic trough. cont meropenem - cont po vanco - HIT Abs pending . monitor plt count poor sign
--- NOTE | 2018-06-03 12:33 | PN ---
Teaching Attending Note Name of Resident: Aliyah Whelan ATTENDING PHYSICIAN STATEMENT I saw and evaluated the patient. I reviewed the resident's note and discussed the case with the resident. I agree with the resident's findings and plan as documented. SUBJECTIVE: Pt seen and examined in the ICU. CT head showing diffuse cerebral edema. + spontaneous breaths today. Remains on levophed gtt. OBJECTIVE: Vital Signs Period Temp Pulse Resp BP Sys/Lisa Pulse Ox Last 24 Hr 96.3 F-98.8 F 84-102 26-28 90-117/64-83 94-96 Intake & Output 05/31/18 06/01/18 06/02/18 06/03/18 23:59 23:59 23:59 23:59 Intake Total 4942 5538 2706 1368 Output Total 1900 1300 900 800 Balance 3042 4238 1806 568 Weight 40.4 kg 40.4 kg 39.916 kg Gen: vented, unresponsive Heart: RRR Lung: scattered rhonchi Abd: soft, nontender Ext: + edema, +ischemic toes CBC, BMP 06/03/18 05:30 06/03/18 05:30 Active Medications Acetaminophen (Tylenol Oral Solution -) 650 mg NGT Q4H PRN PRN Reason: FEVER Acetylcysteine (Mucomyst 20 Oral / Inh Use Only*) 200 mg NEB Q4H PRN PRN Reason: COUGH Artificial Tears (Lacri-Lube Eye Ointment -) 1 applic OU HS PRN PRN Reason: DRY EYES Last Admin: 05/30/18 10:08 Dose: 1 applic Artificial Tears (Artificial Tears) 1 drop OU BID PRN PRN Reason: DRY EYES Last Admin: 06/02/18 11:05 Dose: 1 drop Budesonide/Formoterol Fumarate (Symbicort 160/4.5mcg -) 2 puff IH BID RAZ Last Admin: 06/03/18 09:29 Dose: Not Given Chlorhexidine Gluconate (Hibiclens For Decolonization -) 1 applic TP HS RAZ Last Admin: 06/02/18 22:00 Dose: 1 applic Gabapentin (Neurontin Oral Liquid -) 250 mg GT BID RAZ Last Admin: 06/03/18 09:29 Dose: Not Given Hydrocortisone Sodium Succinate (Solu-Cortef -) 100 mg IVPUSH Q8H-IV RAZ Last Admin: 06/03/18 09:29 Dose: 100 mg Meropenem 1 gm/ Dextrose 100 mls @ 200 mls/hr IVPB Q8H-IV RAZ Last Admin: 06/03/18 09:28 Dose: 200 mls/hr Vasopressin 50 units/ Sodium (Chloride) 100 mls @ 4 mls/hr IVPB ASDIR RAZ; Protocol Last Titration: 06/03/18 06:03 Dose: 0 units/hr, 0 mls/hr Norepinephrine Bitartrate 8, (000 mcg/ Dextrose) 500 mls @ 18.75 mls/hr IV TITR RAZ; Protocol Last Admin: 06/02/18 21:00 Dose: 3.2 mcg/min, 12 mls/hr Sodium Chloride (Normal Saline -) 1,000 mls @ 100 mls/hr IV ASDIR RAZ Last Admin: 06/02/18 12:36 Dose: 100 mls/hr Pantoprazole Sodium (Protonix Iv) 40 mg IVPUSH BID RAZ Last Admin: 06/03/18 09:28 Dose: 40 mg Vancomycin HCl (Vancomycin Oral Solution) 125 mg PO Q6HPO [facility] Last Admin: 06/03/18 12:18 Dose: Not Given ASSESSMENT AND PLAN: Acute Hypoxic Respiratory Failure Pneumonia ARDS Gram Negative Bacteremia Severe Sepsis Leukopenia Acute Kidney Injury Lactic Acidosis Thrombocytopenia r/o DIC HIV/AIDS COPD h/o Laryngeal Ca s/p tracheostomy - continue antibiotics per ID - IVF to keep CVP 8-12 - monitor urine output, creatinine - taper pressors to maintain MAP >65 - low tidal volume ventilation 6cc/kg/IBW - keep Pplat <30 - taper FiO2, PEEP to keep SpO2 >90% - allow permissive hypercapnea - monitor CBC, coags, fibrinogen level - transfuse as needed - hold all sedation to assess mental status - DVT/GI prophylaxis - continue ICU monitoring - prognosis poor, discussed with at bedside critical care time spent in reviewing chart, evaluating patient and formulating plan 35 min
--- NOTE | 2018-06-03 13:50 | PN ---
Physical Exam: SUBJECTIVE: Patient seen and examined. Olga Lidia and overnight nurse Jennifer were able to talk to the Matias, who is gradually getting other family members on the same page and emotionally ready for changing her code status. OBJECTIVE: Vital Signs Period Temp Pulse Resp BP Sys/Lisa Pulse Ox Last 24 Hr 96.3 F-98.8 F 84-102 26-28 90-117/64-83 94-96 GENERAL: The patient is comatose, non-arousable to tactile or verbal stimuli. EYES: Pupils very sluggish to light, scleral ictericus, purulence dripping from eyes ENT: Ears normal, nares patent, oropharynx with clots of blood in mouth NECK: Tracheostomy tube in place LUNGS: Coarse breath sounds, mechanical ventilation HEART: Tachycardic, regular rate and rhythm, S1, S2 without murmur, rub or gallop. ABDOMEN: Distended (more than yesterday), dull to percussion, BS+, rectal sheath draining yellow-green liquid, Ugarte draining clear urine. PEG site now red around site. EXTREMITIES: 2+ dorsal pedal pulses, warm-except for metatarsals which were cool to touch and dusky, no edema. NEUROLOGICAL: Comatose Laboratory Results - last 24 hr 06/02/18 06/02/18 06/03/18 15:18 15:30 05:30 WBC 13.8 H RBC 2.91 L Hgb 8.6 L Hct 26.1 L MCV 89.6 MCH 29.4 MCHC 32.9 RDW 17.2 H Plt Count 23 L* D MPV 10.3 D Puncture Site ABG pH ABG pCO2 at Pt Temp ABG pO2 at Pt Temp ABG HCO3 ABG O2 Sat (Measured) ABG O2 Content ABG Base Excess Aureliano Test O2 Delivery Device Oxygen Flow Rate Vent Rate Mechanical Rate PEEP Pressure Support Vent Sodium Potassium Chloride Carbon Dioxide Anion Gap BUN Creatinine Creat Clearance w eGFR POC Glucometer [phone] Random Glucose Calcium Phosphorus Magnesium Vancomycin Pre-Dose 36.4 H* 06/03/18 06/03/18 05:30 06:15 WBC RBC Hgb Hct MCV MCH MCHC RDW Plt Count MPV Puncture Site Arterial line ABG pH 7.42 ABG pCO2 at Pt Temp 48.2 H ABG pO2 at Pt Temp 72.4 L D ABG HCO3 30.7 H ABG O2 Sat (Measured) 95.0 ABG O2 Content 10.9 L ABG Base Excess 6.0 H Aureliano Test Positive O2 Delivery Device Mech vent Oxygen Flow Rate 70% Vent Rate 28 Mechanical Rate Yes PEEP 10.0 Pressure Support Vent 300 Sodium 134 L Potassium 3.9 Chloride 93 L Carbon Dioxide 32 Anion Gap 9 BUN 62 H Creatinine 1.2 Creat Clearance w eGFR 47.75 POC Glucometer Random Glucose 180 H Calcium 7.7 L Phosphorus 3.1 Magnesium 2.0 Vancomycin Pre-Dose Active Medications Current Medications Acetaminophen (Tylenol Oral Solution -) 650 mg NGT Q4H PRN PRN Reason: FEVER Acetylcysteine (Mucomyst 20 Oral / Inh Use Only*) 200 mg NEB Q4H PRN PRN Reason: COUGH Artificial Tears (Lacri-Lube Eye Ointment -) 1 applic OU HS PRN PRN Reason: DRY EYES Last Admin: 05/30/18 10:08 Dose: 1 applic Artificial Tears (Artificial Tears) 1 drop OU BID PRN PRN Reason: DRY EYES Last Admin: 06/02/18 11:05 Dose: 1 drop Budesonide/Formoterol Fumarate (Symbicort 160/4.5mcg -) 2 puff IH BID RAZ Last Admin: 06/03/18 09:29 Dose: Not Given Chlorhexidine Gluconate (Hibiclens For Decolonization -) 1 applic TP HS RAZ Last Admin: 06/02/18 22:00 Dose: 1 applic Gabapentin (Neurontin Oral Liquid -) 250 mg GT BID RAZ Last Admin: 06/03/18 09:29 Dose: Not Given Hydrocortisone Sodium Succinate (Solu-Cortef -) 100 mg IVPUSH Q8H-IV RAZ Last Admin: 06/03/18 09:29 Dose: 100 mg Meropenem 1 gm/ Dextrose 100 mls @ 200 mls/hr IVPB Q8H-IV RAZ Last Admin: 06/03/18 09:28 Dose: 200 mls/hr Vasopressin 50 units/ Sodium (Chloride) 100 mls @ 4 mls/hr IVPB ASDIR RAZ; Protocol Last Titration: 06/03/18 06:03 Dose: 0 units/hr, 0 mls/hr Norepinephrine Bitartrate 8, (000 mcg/ Dextrose) 500 mls @ 18.75 mls/hr IV TITR RAZ; Protocol Last Admin: 06/02/18 21:00 Dose: 3.2 mcg/min, 12 mls/hr Sodium Chloride (Normal Saline -) 1,000 mls @ 100 mls/hr IV ASDIR [facility] Last Admin: 06/02/18 12:36 Dose: 100 mls/hr Pantoprazole Sodium (Protonix Iv) 40 mg IVPUSH BID [facility] Last Admin: 06/03/18 09:28 Dose: 40 mg Vancomycin HCl (Vancomycin Oral Solution) 125 mg PO Q6HPO [facility] Last Admin: 06/03/18 12:18 Dose: Not Given Home Medications Medication Instructions Recorded Zolpidem Tartrate [Ambien] 5 mg PO HS #30 tablet MDD 1 03/04/18 Acetaminophen [Tylenol .Regular 650 mg PO Q6H PRN tablet 04/26/18 Strength -] Acetylcysteine Po/INH 20% 200 mg NEB Q4HWA PRN #1 vial 05/06/18 [Mucomyst 20 Oral / INH Use Only*] Albuterol 0.083% Nebulizer Keyonna 1 neb NEB Q4H PRN #1 box MDD 6 05/06/18 [Ventolin 0.083% Nebulizer Soln -] Emtricitabine/Tenofovir [Truvada -] 1 tab PEG DAILY #30 tablet 05/06/18 Etravirine [Intelence -] 100 mg PEG BID #60 tablet 05/06/18 Gabapentin Liquid [Neurontin Oral 250 mg PO BID #1 bottle 05/06/18 Liquid -] Raltegravir [Isentress] 400 mg PEG BID #60 tab 05/06/18 Amoxicillin - [Amoxicillin 500mg 500 mg PO Q8H 05/28/18 Capsule -] Clonazepam [Klonopin] 1 mg GT TID PRN MDD 3 05/28/18 Mirtazapine [Remeron -] 15 mg GT DAILY 05/28/18 Prednisone 15 mg GT DAILY 05/28/18 Sertraline HCl [Zoloft] 100 mg GT AM 05/28/18 ASSESSMENT/PLAN: Pt is a 48 y/o F HIV/AIDS, laryngeal ca s/p tracheostomy, failure to thrive, PEG tube, Hep B, COPD, Asthma, positive C-diff (05/21) BIBA for SOB/increased mucus/fatigue for 7-10 days. She is admitted to ICU for acute hypoxic respiratory failure. Coded three times in the ICU and now remains intubated. #Pulmonology -Acute hypoxic respiratory failure secondary to right lower lobe PNA Intubated Settings @ A/C: 28/300/70/10. Low tidal volume 6ml/kg with a high PEEP(decreased from 15 to 10) Continue IV Meropenem 1gm Q8H Day 6 Albuterol PRN Duoneb QID #Infectious Disease -Right lower lobe pneumonia w/ associated bacteremia BCx. positive Klebsiella pneumonia c/w Meropenem, Hold IV Vancomycin, Vanco trough: 36.4 -AIDS on HAART therapy c/w Truvada, Etravirine, Raltegravir #Cardiovascular -Hypotension c/w Levophed: increased to 4 units; Vaso: weaned off; weaned off dopamine; Continue to titrate off pressors as tolerated. -Thrombocytopenia Threshold for transfusion of platelets 20k Platelets 17k-->15k-->33k-->31k-->23k #Gastroenterology -Bilious vomiting and watery diarrhea this morning Patient was treated for C. diff on 05/21/18; 05/30/2018: positive C. diff organisms but negative for Ag toxins Continue Continue PO and Vancomycin Q6H Day 7 #Nephrology -SONAM Cr. 1.2 (baseline creatinine 1.1) c/w IVF Avoid nephrotoxic drugs Ugarte in place-draining beka colored urine #F/E/N IV NS with sodium bicarb @ 100 mls/hr Monitor electrolytes with goals of K:4.0-4.5; Phos: 2.5-4.9 NPO #Ppx. For DVT: Hold A/C as Pt. is thrombocytopenic. For GI: IV Protonix Visit type - Emergency Visit Emergency Visit: Yes ED Registration Date: 05/28/18 Care time: The patient presented to the Emergency Department on the above date and was hospitalized for further evaluation of their emergent condition. - New Patient This patient is new to me today: No - Critical Care Critical Care patient: Yes Total Critical Care Time (in minutes): 42 Critical Care Statement: The care of this patient involved high complexity decision making to prevent further life threatening deterioration of the patient 's condition and/or to evaluate & treat vital organ system(s) failure or risk of failure. - Discharge Referral Referred to [facility] No
--- NOTE | 2018-06-03 15:36 | PN ---
Physical Exam: SUBJECTIVE: Patient seen and examined at bedside this morning. Weaning trial done today,patient has minimal spontaneous breathing. No fevers overnight. Settings @ A/C: 28/300/70/10. Patient maintains O2 satn >92%. Vasopressors decreased. On Levophed:4; Vasopressin and Dopamine drips discontinued. I/O: 4074/[address] scan done - interval development of marked diffuse cerebral and cerebellar edema bilaterally OBJECTIVE: Vital Signs Period Temp Pulse Resp BP Sys/Lisa Pulse Ox Last 24 Hr 96 F-98.7 F 84-102 28-28 90-119/64-83 94-96 GENERAL: The patient is intubated and unresponsive. Eyes closed, Pupils nonreactive to light. Negative doll's eye. No gag reflex. LUNGS: +scattered rhonchi bilaterally HEART: Regular rate and rhythm, without murmur, rub or gallop. ABDOMEN: +distended, +BS EXTREMITIES: +2 peripheral edema, +cyanotic toes Laboratory Results - last 24 hr 05/31/18 06/02/18 06/02/18 16:15 15:18 15:30 WBC RBC Hgb Hct MCV MCH MCHC RDW Plt Count MPV Puncture Site ABG pH ABG pCO2 at Pt Temp ABG pO2 at Pt Temp ABG HCO3 ABG O2 Sat (Measured) ABG O2 Content ABG Base Excess Aureliano Test O2 Delivery Device Oxygen Flow Rate Vent Rate Mechanical Rate PEEP Pressure Support Vent Sodium Potassium Chloride Carbon Dioxide Anion Gap BUN Creatinine Creat Clearance w eGFR POC Glucometer [phone] Random Glucose Calcium Phosphorus Magnesium Vancomycin Pre-Dose 36.4 H* Heparin-Ind Plt Ab Scrn 0.776 H 06/03/18 06/03/18 06/03/18 05:30 05:30 06:15 WBC 13.8 H RBC 2.91 L Hgb 8.6 L Hct 26.1 L MCV 89.6 MCH 29.4 MCHC 32.9 RDW 17.2 H Plt Count 23 L* D MPV 10.3 D Puncture Site Arterial line ABG pH 7.42 ABG pCO2 at Pt Temp 48.2 H ABG pO2 at Pt Temp 72.4 L D ABG HCO3 30.7 H ABG O2 Sat (Measured) 95.0 ABG O2 Content 10.9 L ABG Base Excess 6.0 H Aureliano Test Positive O2 Delivery Device Mech vent Oxygen Flow Rate 70% Vent Rate 28 Mechanical Rate Yes PEEP 10.0 Pressure Support Vent 300 Sodium 134 L Potassium 3.9 Chloride 93 L Carbon Dioxide 32 Anion Gap 9 BUN 62 H Creatinine 1.2 Creat Clearance w eGFR 47.75 POC Glucometer Random Glucose 180 H Calcium 7.7 L Phosphorus 3.1 Magnesium 2.0 Vancomycin Pre-Dose Heparin-Ind Plt Ab Scrn Active Medications Generic Name Dose Route Start Last Admin Trade Name Freq PRN Reason Stop Dose Admin Acetaminophen 650 mg 05/31/18 08:04 Tylenol Oral Solution - NGT Q4H PRN FEVER Acetylcysteine 200 mg 05/28/18 21:52 Mucomyst 20 Oral / Inh Use Only* NEB Q4H PRN COUGH Artificial Tears 1 applic 05/30/18 02:00 05/30/18 10:08 Lacri-Lube Eye Ointment - OU 1 applic HS PRN Administration DRY EYES Artificial Tears 1 drop 05/31/18 08:26 06/02/18 11:05 Artificial Tears OU 1 drop BID PRN Administration DRY EYES Budesonide/Formoterol Fumarate 2 puff 05/28/18 22:00 06/03/18 09:29 Symbicort 160/4.5mcg - IH Not Given BID RAZ Chlorhexidine Gluconate 1 applic 05/28/18 22:00 06/02/18 22:00 Hibiclens For Decolonization - TP 1 applic HS RAZ Administration Gabapentin 250 mg 05/31/18 13:21 06/03/18 09:29 Neurontin Oral Liquid - GT Not Given BID RAZ Hydrocortisone Sodium Succinate 100 mg 05/29/18 19:30 06/03/18 09:29 Solu-Cortef - IVPUSH 100 mg Q8H-IV RAZ Administration Meropenem 1 gm/ Dextrose 100 mls @ 200 mls/hr 05/29/18 11:45 06/03/18 09:28 IVPB 200 mls/hr Q8H-IV RAZ Administration Vasopressin 50 units/ Sodium 100 mls @ 4 mls/hr 05/29/18 20:30 06/03/18 06:03 Chloride IVPB 0 units/hr ASDIR RAZ 0 mls/hr Titration Protocol 2 UNITS/HR Norepinephrine Bitartrate 8, 500 mls @ 18.75 mls/hr 05/29/18 20:30 06/02/18 21:00 000 mcg/ Dextrose IV 3.2 mcg/min TITR RAZ 12 mls/hr Administration Protocol 5 MCG/MIN Sodium Chloride 1,000 mls @ 100 mls/hr 05/31/18 11:30 06/02/18 12:36 Normal Saline - IV 100 mls/hr ASDIR RAZ Administration Pantoprazole Sodium 40 mg 05/30/18 12:00 06/03/18 09:28 Protonix Iv IVPUSH 40 mg BID RAZ Administration Vancomycin HCl 125 mg 05/29/18 18:00 06/03/18 12:18 Vancomycin Oral Solution PO Not Given Q6HPO [facility] ASSESSMENT/PLAN: Patient is a 48 y/o female with past medical history of HIV/AIDS, laryngeal ca s /p tracheostomy, failure to thrive, PEG tube, Hep B, COPD, Asthma, positive C- diff (05/21) BIBA for SOB/increased mucus/fatigue for 7-10 days. She is admitted to ICU for acute hypoxic respiratory failure. Coded three times in the ICU and now remains Intubated. #Pulmonary 1)Acute hypoxic respiratory failure secondary to right lower lobe PNA -Intubated Settings @ A/C: RR 28 / TV 300 / FiO2 70% / PEEP 10 -Continue IV Meropenem 1gm Q8H Day5 -Albuterol PRN -Duoneb QID -Solu-medrol 100mg q8h #Cardiovascular 1)Sinus tachycardia -Cardiology (Dr. Jackson) consulted. Recommendations appreciated. -Titrate off vasopressors as tolerated, beginning with lowering dose of dopamine -Serial HR and BP -On IVF -Echo (04/08/18): normal LVEF; small amount pericardial effusion, without evidence of tamponade. -Replete electrolytes. -Keep K 4-4.5, Mg 2-2.4, PO4 2.5-4.9. #Infectious Disease 1)Septic shock likely 2/2 bacteremia 2/2 Pneumonia -Blood cx - + Klebsiella pneumoniae -leukocytosis improving and no fevers overnight. -IV Tylenol q4 PRN -ID (Dr. Kee) consulted. Recommendations appreciated. -Continue IV Meropenem 1gm q8h and IV Vancomycin 1g q12h day 5 2)HIV on HAART -As per ID, will hold all HAART medications for now. #Gastroenterology 1)Hx of C. Difficile infection -Patient was treated for C. diff on 05/21/18; 05/30/2018: Positive c. diff Ag neg toxin -Continue Continue PO Vancomycin 125 mg Q6H Day 7 #Nephrology 1)SONAM -BUN/Cr: 62/1.2 -IV fluids -Avoid nephrotoxic agents -Ugarte in place -Monitor I/O -Daily weights 2)Hypomagnesemia : resolved -IV MgSO4 1gm given 3)Hypokalemia : K 3.9 -IV KCl given -will monitor #Hematology 1)Thrombocytopenia: 23 -PT/INR and Fibrinogen levels done -HIT antibody pending -Hematology (Dr. Dial) consulted. Recommendations appreciated. -platelet transfusion threshold 20K. if falls below 20 thousand transfuse platelets, or if spontaneously bleeding. -trend CBC -trend PT/INR PTT and fibrinogen -heparin subQ BID was stopped -hit Ab sent and only if equivocal will send serotonin release assay -will continue to monitor 2)Anemia -H/H - 8.6.1 -will continue to monitor #FEN -IV NS @100ml/hr -hypokalemia, repleted -routine bmp monitoring -NPO #Prophylaxis 1)DVT - Thrombocytopenia, will hold heparin and AC for now 2)GI - IV Protonix 40mg BID #Disposition -full code -ICU for closer monitoring Visit type - Emergency Visit Emergency Visit: Yes ED Registration Date: 05/28/18 Care time: The patient presented to the Emergency Department on the above date and was hospitalized for further evaluation of their emergent condition. - New Patient This patient is new to me today: Yes Date on this admission: 06/03/18 - Critical Care Critical Care patient: Yes Total Critical Care Time (in minutes): 45 Critical Care Statement: The care of this patient involved high complexity decision making to prevent further life threatening deterioration of the patient 's condition and/or to evaluate & treat vital organ system(s) failure or risk of failure.
[2018-06-03] MEDS: SODIUM CHLORIDE 1,000 ML IV SCH (17:03)
[2018-06-03] MEDS ORDERED: NOREPINEPHRINE BITARTRATE 4 MG/4 ML ML IV ONE (17:11)
[2018-06-03] MEDS: NOREPINEPHRINE BITARTRATE 8,000 MCG in DEXTROSE 5%-WATER - 492 ML IV SCH (18:34)
[2018-06-03] MEDS: CHLORHEXIDINE GLUCONATE 4% CLEANSER FOR DECOLONIZATION TP SCH (22:00)
--- NOTE | 2018-06-04 01:52 | PN ---
Physical Exam: SUBJECTIVE: Patient seen and examined. Levophed increased to 8. Pt. has passed Apnea trial. OBJECTIVE: Vital Signs Period Temp Pulse Resp BP Sys/Lisa Pulse Ox Last 24 Hr 96 F-98.7 F 67-101 26-34 88-119/64-78 94-94 GENERAL: The patient is comatose, non-arousable to tactile or verbal stimuli, cool to touch. EYES: Pupils very sluggish to light, scleral ictericus, purulence dripping from eyes ENT: Ears normal, nares patent, oropharynx with clots of blood in mouth NECK: Tracheostomy tube in place LUNGS: Coarse breath sounds, mechanical ventilation HEART: Tachycardic, regular rate and rhythm, S1, S2 without murmur, rub or gallop. ABDOMEN: Non-distended, dull to percussion, BS hypo-active, rectal sheath draining yellow-green liquid, Ugarte draining clear urine. PEG site now red around site. EXTREMITIES: 2+ dorsal pedal pulses, warm-except for metatarsals which were cool to touch and dusky, no edema. NEUROLOGICAL: Comatose Laboratory Results - last 24 hr 05/31/18 06/03/18 06/03/18 16:15 05:30 05:30 WBC 13.8 H RBC 2.91 L Hgb 8.6 L Hct 26.1 L MCV 89.6 MCH 29.4 MCHC 32.9 RDW 17.2 H Plt Count 23 L* D MPV 10.3 D Puncture Site ABG pH ABG pCO2 at Pt Temp ABG pO2 at Pt Temp ABG HCO3 ABG O2 Sat (Measured) ABG O2 Content ABG Base Excess Aureliano Test O2 Delivery Device Oxygen Flow Rate Vent Rate Mechanical Rate PEEP Pressure Support Vent Sodium 134 L Potassium 3.9 Chloride 93 L Carbon Dioxide 32 Anion Gap 9 BUN 62 H Creatinine 1.2 Creat Clearance w eGFR 47.75 Random Glucose 180 H Calcium 7.7 L Phosphorus 3.1 Magnesium 2.0 Heparin-Ind Plt Ab Scrn 0.776 H 06/03/18 06:15 WBC RBC Hgb Hct MCV MCH MCHC RDW Plt Count MPV Puncture Site Arterial line ABG pH 7.42 ABG pCO2 at Pt Temp 48.2 H ABG pO2 at Pt Temp 72.4 L D ABG HCO3 30.7 H ABG O2 Sat (Measured) 95.0 ABG O2 Content 10.9 L ABG Base Excess 6.0 H Aureliano Test Positive O2 Delivery Device Mech vent Oxygen Flow Rate 70% Vent Rate 28 Mechanical Rate Yes PEEP 10.0 Pressure Support Vent 300 Sodium Potassium Chloride Carbon Dioxide Anion Gap BUN Creatinine Creat Clearance w eGFR Random Glucose Calcium Phosphorus Magnesium Heparin-Ind Plt Ab Scrn Active Medications Current Medications Acetaminophen (Tylenol Oral Solution -) 650 mg NGT Q4H PRN PRN Reason: FEVER Acetylcysteine (Mucomyst 20 Oral / Inh Use Only*) 200 mg NEB Q4H PRN PRN Reason: COUGH Artificial Tears (Lacri-Lube Eye Ointment -) 1 applic OU HS PRN PRN Reason: DRY EYES Last Admin: 05/30/18 10:08 Dose: 1 applic Artificial Tears (Artificial Tears) 1 drop OU BID PRN PRN Reason: DRY EYES Last Admin: 06/04/18 17:57 Dose: 1 drop Budesonide/Formoterol Fumarate (Symbicort 160/4.5mcg -) 2 puff IH BID RAZ Last Admin: 06/03/18 22:00 Dose: Not Given Chlorhexidine Gluconate (Hibiclens For Decolonization -) 1 applic TP HS RAZ Last Admin: 06/03/18 22:00 Dose: 1 applic Gabapentin (Neurontin Oral Liquid -) 250 mg GT BID RAZ Last Admin: 06/04/18 09:48 Dose: Not Given Hydrocortisone Sodium Succinate (Solu-Cortef -) 100 mg IVPUSH Q8H-IV RAZ Last Admin: 06/04/18 17:28 Dose: 100 mg Meropenem 1 gm/ Dextrose 100 mls @ 200 mls/hr IVPB Q8H-IV RAZ Last Admin: 06/04/18 17:28 Dose: 200 mls/hr Vasopressin 50 units/ Sodium (Chloride) 100 mls @ 4 mls/hr IVPB ASDIR RAZ; Protocol Last Titration: 06/03/18 06:03 Dose: 0 units/hr, 0 mls/hr Norepinephrine Bitartrate 8, (000 mcg/ Dextrose) 500 mls @ 18.75 mls/hr IV TITR RAZ; Protocol Last Titration: 06/04/18 14:00 Dose: 10 mcg/min, 37.5 mls/hr Sodium Chloride (Normal Saline -) 1,000 mls @ 100 mls/hr IV ASDIR [facility] Last Admin: 06/04/18 15:48 Dose: 100 mls/hr Pantoprazole Sodium (Protonix Iv) 40 mg IVPUSH BID [facility] Last Admin: 06/04/18 10:03 Dose: 40 mg Vancomycin HCl (Vancomycin Oral Solution) 125 mg PO Q6HPO [facility] Last Admin: 06/04/18 17:28 Dose: 125 mg Home Medications Medication Instructions Recorded Zolpidem Tartrate [Ambien] 5 mg PO HS #30 tablet MDD 1 03/04/18 Acetaminophen [Tylenol .Regular 650 mg PO Q6H PRN tablet 04/26/18 Strength -] Acetylcysteine Po/INH 20% 200 mg NEB Q4HWA PRN #1 vial 05/06/18 [Mucomyst 20 Oral / INH Use Only*] Albuterol 0.083% Nebulizer Keyonna 1 neb NEB Q4H PRN #1 box MDD 6 05/06/18 [Ventolin 0.083% Nebulizer Soln -] Emtricitabine/Tenofovir [Truvada -] 1 tab PEG DAILY #30 tablet 05/06/18 Etravirine [Intelence -] 100 mg PEG BID #60 tablet 05/06/18 Gabapentin Liquid [Neurontin Oral 250 mg PO BID #1 bottle 05/06/18 Liquid -] Raltegravir [Isentress] 400 mg PEG BID #60 tab 05/06/18 Amoxicillin - [Amoxicillin 500mg 500 mg PO Q8H 05/28/18 Capsule -] Clonazepam [Klonopin] 1 mg GT TID PRN MDD 3 05/28/18 Mirtazapine [Remeron -] 15 mg GT DAILY 05/28/18 Prednisone 15 mg GT DAILY 05/28/18 Sertraline HCl [Zoloft] 100 mg GT AM 05/28/18 ASSESSMENT/PLAN: Pt is a 48 y/o F HIV/AIDS, laryngeal ca s/p tracheostomy, failure to thrive, PEG tube, Hep B, COPD, Asthma, positive C-diff (05/21) BIBA for SOB/increased mucus/fatigue for 7-10 days. She is admitted to ICU for acute hypoxic respiratory failure. Coded three times in the ICU and now remains intubated. #Pulmonology -Acute hypoxic respiratory failure secondary to right lower lobe PNA Intubated Settings @ A/C: 28/300/70/10. Low tidal volume 6ml/kg with a high PEEP(decreased from 15 to 10) Continue IV Meropenem 1gm Q8H Day 6 Albuterol PRN Duoneb QID #Infectious Disease -Right lower lobe pneumonia w/ associated bacteremia BCx. positive Klebsiella pneumonia c/w Meropenem, Hold IV Vancomycin, Vanco trough: 36.4 -AIDS on HAART therapy c/w Truvada, Etravirine, Raltegravir #Cardiovascular -Hypotension c/w Levophed: increased to 4 units; Vaso: weaned off; weaned off dopamine; Continue to titrate off pressors as tolerated. -Thrombocytopenia Threshold for transfusion of platelets 20k Platelets 17k-->15k-->33k-->31k-->23k-->30k HIT Abs +, will not change medical management as Pt. is off A/c #Gastroenterology -Bilious vomiting and watery diarrhea this morning Patient was treated for C. diff on 05/21/18; 05/30/2018: positive C. diff organisms but negative for Ag toxins Continue Continue PO and Vancomycin Q6H Day 8 #Nephrology -SONAM Cr. 2.3 (baseline creatinine 1.1) c/w IVF Avoid nephrotoxic drugs Ugarte in place-draining beka colored urine Pt. given Mucomyst to assist renal function through unknown mechanism but scientifically documented, especially prior to angiography. #F/E/N IV NS with sodium bicarb @ 100 mls/hr Monitor electrolytes with goals of K:4.0-4.5; Phos: 2.5-4.9 NPO #Ppx. For DVT: Hold A/C as Pt. is thrombocytopenic. For GI: IV Protonix Visit type - Emergency Visit Emergency Visit: Yes ED Registration Date: 05/28/18 Care time: The patient presented to the Emergency Department on the above date and was hospitalized for further evaluation of their emergent condition. - New Patient This patient is new to me today: No - Critical Care Critical Care patient: Yes Total Critical Care Time (in minutes): 38 Critical Care Statement: The care of this patient involved high complexity decision making to prevent further life threatening deterioration of the patient 's condition and/or to evaluate & treat vital organ system(s) failure or risk of failure. - Discharge Referral Referred to [facility] No
[2018-06-04] MEDS: HYDROCORTISONE SOD SUCCINATE 100 MG/2 ML VIAL IVPUSH SCH ×3 (02:30→17:28)
[2018-06-04] MEDS: MEROPENEM 1 GM in DEXTROSE 5%-WATER 100 ML IVPB SCH ×3 (03:00→17:28)
[2018-06-04] MEDS ORDERED: PT OWN MED DRAWER 7, Y5N ONE ×3 (04:59→17:01)
[2018-06-04] MEDS: PANTOPRAZOLE SODIUM 40 MG VIAL IVPUSH SCH ×3 (05:06→21:35)
[2018-06-04 05:53] LABS: HEMATOCRIT 33.9 % (32.4-45.2); HEMOGLOBIN 10.6 GM/dL (10.7-15.3); MCH 28.8 pg (25.7-33.7); MCHC 31.2 g/dl (32.0-36.0); MEAN CELL VOLUME 92.3 fl (80-96); MEAN PLT VOLUME 10.9 fl (7.5-11.1); RBC 3.67 M/mm3 (3.60-5.2); RDW 17.1 % (11.6-15.6); WHITE BLOOD COUNT 15.8 K/mm3 (4.0-10.0)
[2018-06-04 06:26] LABS: ANION GAP 7 MMOL/L (8-16); BLOOD UREA NITROGEN 65 mg/dL (7-18); CALCIUM 8.1 mg/dL (8.5-10.1); CHLORIDE 103 mmol/L (98-107); CO2 34 mmol/L (21-32); CREATININE 1.1 mg/dL (0.55-1.3); GLUCOSE,RANDOM 154 mg/dL (74-106); MAGNESIUM 2.3 mg/dL (1.8-2.4); PHOSPHOROUS 4.5 mg/dL (2.5-4.9); POTASSIUM 3.8 mmol/L (3.5-5.1); SODIUM 144 mmol/L (136-145)
[2018-06-04 06:35] LABS: PLATELET COUNT 30 K/MM3 (134-434)
[2018-06-04] MEDS: ARTIFICIAL TEARS (POLYVINYL ALCOHOL) OPTH DROPS OU PRN ×3 (07:03→17:57)
[2018-06-04 07:09] LABS: ARTERIAL BLD GAS O2 SATURATION 93.5 % (90-98.9); ARTERIAL BLOOD GAS BASE EXCESS 3.4 meq/l (-2-2); ARTERIAL BLOOD GAS PCO2 55.4 mmHg (35-45); ARTERIAL BLOOD GAS PO2 73.2 mmHg (80-100); ARTERIAL BLOOD GAS pH 7.35 (7.35-7.45)
[2018-06-04] MEDS: VANCOMYCIN 250 MG/5 ML ORAL SOLUTION PO SCH ×4 (07:15→17:28)
[2018-06-04] MEDS: GABAPENTIN 250 MG/5 ML ORAL SOLUTION, 470 ML BOTTLE GT SCH ×2 (09:48→21:37)
[2018-06-04] MEDS: NOREPINEPHRINE BITARTRATE 8,000 MCG in DEXTROSE 5%-WATER - 492 ML IV SCH (09:51)
--- NOTE | 2018-06-04 11:23 | PN ---
Progress Note (short form) - Note Progress Note: s/p multiple cardiopulmonary arrests, with anoxic ischemic encephalopathy and no brainstem signs, occasionally breathing though. Her neurologic prognosis is very poor. Problem List - Problems (1) Coma Code(s): R40.20 - UNSPECIFIED COMA Qualifiers: Coma depth: unspecified coma depth Qualified Code(s): R40.20 - Unspecified coma (2) Diastolic CHF Code(s): I50.30 - UNSPECIFIED DIASTOLIC (CONGESTIVE) HEART FAILURE (3) Leukopenia Code(s): D72.819 - DECREASED WHITE BLOOD CELL COUNT, UNSPECIFIED (4) Pneumonia Code(s): J18.9 - PNEUMONIA, UNSPECIFIED ORGANISM Qualifiers: Pneumonia type: due to unspecified organism Laterality: right Lung location: lower lobe of lung Qualified Code(s): J18.1 - Lobar pneumonia, unspecified organism (5) Septic shock Code(s): A41.9 - SEPSIS, UNSPECIFIED ORGANISM; R65.21 - SEVERE SEPSIS WITH SEPTIC SHOCK (6) Tachycardia Code(s): R00.0 - TACHYCARDIA, UNSPECIFIED (7) Acute on chronic respiratory failure with hypoxia and hypercapnia Code(s): J96.21 - ACUTE AND CHRONIC RESPIRATORY FAILURE WITH HYPOXIA; J96.22 - ACUTE AND CHRONIC RESPIRATORY FAILURE WITH HYPERCAPNIA (8) Anxiety Code(s): F41.9 - ANXIETY DISORDER, UNSPECIFIED (9) Atypical chest pain Code(s): R07.89 - OTHER CHEST PAIN
[2018-06-04] MEDS: SODIUM CHLORIDE 1,000 ML IV SCH ×2 (11:50→15:48)
--- NOTE | 2018-06-04 13:11 | PN ---
Teaching Attending Note Name of Resident: Aliyah Whelan ATTENDING PHYSICIAN STATEMENT I saw and evaluated the patient. I reviewed the resident's note and discussed the case with the resident. I agree with the resident's findings and plan as documented. SUBJECTIVE: Patient seen and examined in the ICU. Remains intubated and minimally responsive. Intermittent grimacing to noxious stimuli. Remains on 9 mcq NE for hemodynamic support. OBJECTIVE: Intake & Output 06/01/18 06/02/18 06/03/18 06/04/18 23:59 23:59 23:59 23:59 Intake Total 5538 2706 3228.4 800 Output Total 2728 461 8951 1500 Balance 4238 1806 -771.6 -700 Weight 89 lb 1.068 oz 89 lb 1.068 oz 88 lb 88 lb Last Vital Signs Temp Pulse Resp BP Pulse Ox 93.1 F L 70 28 H 109/75 93 L 06/04/18 10:00 06/04/18 12:00 06/04/18 12:00 06/04/18 12:00 06/04/18 09:00 Active Medications Acetaminophen (Tylenol Oral Solution -) 650 mg NGT Q4H PRN PRN Reason: FEVER Acetylcysteine (Mucomyst 20 Oral / Inh Use Only*) 200 mg NEB Q4H PRN PRN Reason: COUGH Artificial Tears (Lacri-Lube Eye Ointment -) 1 applic OU HS PRN PRN Reason: DRY EYES Last Admin: 05/30/18 10:08 Dose: 1 applic Artificial Tears (Artificial Tears) 1 drop OU BID PRN PRN Reason: DRY EYES Last Admin: 06/02/18 11:05 Dose: 1 drop Budesonide/Formoterol Fumarate (Symbicort 160/4.5mcg -) 2 puff IH BID RAZ Last Admin: 06/03/18 22:00 Dose: Not Given Chlorhexidine Gluconate (Hibiclens For Decolonization -) 1 applic TP HS RAZ Last Admin: 06/03/18 22:00 Dose: 1 applic Gabapentin (Neurontin Oral Liquid -) 250 mg GT BID RAZ Last Admin: 06/04/18 09:48 Dose: Not Given Hydrocortisone Sodium Succinate (Solu-Cortef -) 100 mg IVPUSH Q8H-IV RAZ Last Admin: 06/04/18 11:00 Dose: 100 mg Meropenem 1 gm/ Dextrose 100 mls @ 200 mls/hr IVPB Q8H-IV RAZ Last Admin: 06/04/18 10:03 Dose: 200 mls/hr Vasopressin 50 units/ Sodium (Chloride) 100 mls @ 4 mls/hr IVPB ASDIR RAZ; Protocol Last Titration: 06/03/18 06:03 Dose: 0 units/hr, 0 mls/hr Norepinephrine Bitartrate 8, (000 mcg/ Dextrose) 500 mls @ 18.75 mls/hr IV TITR RAZ; Protocol Last Admin: 06/04/18 09:51 Dose: 8 mcg/min, 30 mls/hr Sodium Chloride (Normal Saline -) 1,000 mls @ 100 mls/hr IV ASDIR RAZ Last Admin: 06/04/18 11:50 Dose: Not Given Pantoprazole Sodium (Protonix Iv) 40 mg IVPUSH BID RAZ Last Admin: 06/04/18 10:03 Dose: 40 mg Vancomycin HCl (Vancomycin Oral Solution) 125 mg PO Q6HPO RAZ Last Admin: 06/04/18 07:15 Dose: Not Given Gen: vented, Minimally responsive Heart: RRR Lung: scattered rhonchi Abd: soft, nontender Ext: + edema, +ischemic toes Laboratory Results - last 24 hr 05/31/18 05/31/18 06/04/18 10:00 16:15 05:30 WBC 15.8 H RBC 3.67 Hgb 10.6 L Hct 33.9 D MCV 92.3 MCH 28.8 MCHC 31.2 L RDW 17.1 H Plt Count 30 L* D MPV 10.9 Anticoagulation Therapy Puncture Site ABG pH ABG pCO2 at Pt Temp ABG pO2 at Pt Temp ABG HCO3 ABG O2 Sat (Measured) ABG O2 Content ABG Base Excess Aureliano Test O2 Delivery Device Oxygen Flow Rate Vent Mode Vent Rate Mechanical Rate PEEP Pressure Support Vent Sodium Potassium Chloride Carbon Dioxide Anion Gap BUN Creatinine Creat Clearance w eGFR Random Glucose Calcium Phosphorus Magnesium Random Vancomycin Heparin-Ind Plt Ab Scrn 0.776 H Blood Type A POSITIVE Antibody Screen Negative Crossmatch See Detail 06/04/18 06/04/18 06/04/18 05:30 06:30 10:15 WBC RBC Hgb Hct MCV MCH MCHC RDW Plt Count MPV Anticoagulation Therapy No Result Required. Puncture Site Arterial line ABG pH 7.35 ABG pCO2 at Pt Temp 55.4 H ABG pO2 at Pt Temp 73.2 L ABG HCO3 29.6 H ABG O2 Sat (Measured) 93.5 ABG O2 Content 14.6 L ABG Base Excess 3.4 H Aureliano Test No Result Required. O2 Delivery Device Vent Oxygen Flow Rate 70 Vent Mode No Result Required. Vent Rate 28 Mechanical Rate No Result Required. PEEP 10.0 Pressure Support Vent 300 Sodium 144 Potassium 3.8 Chloride 103 Carbon Dioxide 34 H Anion Gap 7 L BUN 65 H Creatinine 1.1 Creat Clearance w eGFR 52.79 Random Glucose 154 H Calcium 8.1 L Phosphorus 4.5 Magnesium 2.3 Random Vancomycin 17.3 L Heparin-Ind Plt Ab Scrn Blood Type Antibody Screen Crossmatch ASSESSMENT AND PLAN: Acute Hypoxic Respiratory Failure: Appears to be progressing toward Brain Pneumonia ARDS Gram Negative Bacteremia Severe Sepsis Leukopenia Acute Kidney Injury Lactic Acidosis Thrombocytopenia r/o DIC HIV/AIDS COPD h/o Laryngeal Ca s/p tracheostomy - continue antibiotics per ID - IVF to keep CVP 8-12 - monitor urine output, creatinine - taper pressors to maintain MAP >65 - low tidal volume ventilation 6cc/kg/IBW - keep Pplat <30 - taper FiO2, PEEP to keep SpO2 >90% - allow permissive hypercapnea - monitor CBC, coags, fibrinogen level - transfuse as needed - hold all sedation to assess mental status - DVT/GI prophylaxis - continue ICU monitoring - Prognosis grave for meaningful survival Dr Mccall Critical care time spent in reviewing chart, evaluating patient and formulating plan 35 min
--- NOTE | 2018-06-04 14:09 | PN ---
Physical Exam: SUBJECTIVE: Patient seen and examined at bedside this morning. Apnea trial done today,patient has minimal spontaneous breathing. No fevers overnight. Settings @ A/C: 28/300/70/10. Patient maintains O2 satn >92%. On Levophed:9; Vasopressin and Dopamine drips discontinued. I/O: 800/[address] scan done - interval development of marked diffuse cerebral and cerebellar edema bilaterally OBJECTIVE: Vital Signs Period Temp Pulse Resp BP Sys/Lisa Pulse Ox Last 24 Hr 93.0 F-98.3 F 67-85 26-34 88-118/55-88 93-95 GENERAL: The patient is intubated and unresponsive. Eyes closed, Pupils nonreactive to light. Negative doll's eye. No gag reflex. LUNGS: +scattered rhonchi bilaterally HEART: Regular rate and rhythm, without murmur, rub or gallop. ABDOMEN: +distended, +BS EXTREMITIES: +2 peripheral edema, +cyanotic toes Laboratory Results - last 24 hr 05/31/18 05/31/18 06/04/18 10:00 16:15 05:30 WBC 15.8 H RBC 3.67 Hgb 10.6 L Hct 33.9 D MCV 92.3 MCH 28.8 MCHC 31.2 L RDW 17.1 H Plt Count 30 L* D MPV 10.9 Anticoagulation Therapy Puncture Site ABG pH ABG pCO2 at Pt Temp ABG pO2 at Pt Temp ABG HCO3 ABG O2 Sat (Measured) ABG O2 Content ABG Base Excess Aureliano Test O2 Delivery Device Oxygen Flow Rate Vent Mode Vent Rate Mechanical Rate PEEP Pressure Support Vent Sodium Potassium Chloride Carbon Dioxide Anion Gap BUN Creatinine Creat Clearance w eGFR Random Glucose Calcium Phosphorus Magnesium Random Vancomycin Heparin-Ind Plt Ab Scrn 0.776 H Blood Type A POSITIVE Antibody Screen Negative Crossmatch See Detail 06/04/18 06/04/18 06/04/18 05:30 06:30 10:15 WBC RBC Hgb Hct MCV MCH MCHC RDW Plt Count MPV Anticoagulation Therapy No Result Required. Puncture Site Arterial line ABG pH 7.35 ABG pCO2 at Pt Temp 55.4 H ABG pO2 at Pt Temp 73.2 L ABG HCO3 29.6 H ABG O2 Sat (Measured) 93.5 ABG O2 Content 14.6 L ABG Base Excess 3.4 H Aureliano Test No Result Required. O2 Delivery Device Vent Oxygen Flow Rate 70 Vent Mode No Result Required. Vent Rate 28 Mechanical Rate No Result Required. PEEP 10.0 Pressure Support Vent 300 Sodium 144 Potassium 3.8 Chloride 103 Carbon Dioxide 34 H Anion Gap 7 L BUN 65 H Creatinine 1.1 Creat Clearance w eGFR 52.79 Random Glucose 154 H Calcium 8.1 L Phosphorus 4.5 Magnesium 2.3 Random Vancomycin 17.3 L Heparin-Ind Plt Ab Scrn Blood Type Antibody Screen Crossmatch Active Medications Generic Name Dose Route Start Last Admin Trade Name Freq PRN Reason Stop Dose Admin Acetaminophen 650 mg 05/31/18 08:04 Tylenol Oral Solution - NGT Q4H PRN FEVER Acetylcysteine 200 mg 05/28/18 21:52 Mucomyst 20 Oral / Inh Use Only* NEB Q4H PRN COUGH Artificial Tears 1 applic 05/30/18 02:00 05/30/18 10:08 Lacri-Lube Eye Ointment - OU 1 applic HS PRN Administration DRY EYES Artificial Tears 1 drop 05/31/18 08:26 06/02/18 11:05 Artificial Tears OU 1 drop BID PRN Administration DRY EYES Budesonide/Formoterol Fumarate 2 puff 05/28/18 22:00 06/03/18 22:00 Symbicort 160/4.5mcg - IH Not Given BID RAZ Chlorhexidine Gluconate 1 applic 05/28/18 22:00 06/03/18 22:00 Hibiclens For Decolonization - TP 1 applic HS RAZ Administration Gabapentin 250 mg 05/31/18 13:21 06/04/18 09:48 Neurontin Oral Liquid - GT Not Given BID RAZ Hydrocortisone Sodium Succinate 100 mg 05/29/18 19:30 06/04/18 11:00 Solu-Cortef - IVPUSH 100 mg Q8H-IV RAZ Administration Meropenem 1 gm/ Dextrose 100 mls @ 200 mls/hr 05/29/18 11:45 06/04/18 10:03 IVPB 200 mls/hr Q8H-IV RAZ Administration Vasopressin 50 units/ Sodium 100 mls @ 4 mls/hr 05/29/18 20:30 06/03/18 06:03 Chloride IVPB 0 units/hr ASDIR RAZ 0 mls/hr Titration Protocol 2 UNITS/HR Norepinephrine Bitartrate 8, 500 mls @ 18.75 mls/hr 05/29/18 20:30 06/04/18 09:51 000 mcg/ Dextrose IV 8 mcg/min TITR RAZ 30 mls/hr Administration Protocol 5 MCG/MIN Sodium Chloride 1,000 mls @ 100 mls/hr 05/31/18 11:30 06/04/18 11:50 Normal Saline - IV Not Given ASDIR RAZ Pantoprazole Sodium 40 mg 05/30/18 12:00 06/04/18 10:03 Protonix Iv IVPUSH 40 mg BID RAZ Administration Vancomycin HCl 125 mg 05/29/18 18:00 06/04/18 13:00 Vancomycin Oral Solution PO 125 mg Q6HPO RAZ Administration ASSESSMENT/PLAN: Patient is a 48 y/o female with past medical history of HIV/AIDS, laryngeal ca s /p tracheostomy, failure to thrive, PEG tube, Hep B, COPD, Asthma, positive C- diff (05/21) BIBA for SOB/increased mucus/fatigue for 7-10 days. She is admitted to ICU for acute hypoxic respiratory failure. Coded three times in the ICU and now remains Intubated. #Pulmonary 1)Acute hypoxic respiratory failure secondary to right lower lobe PNA -Intubated Settings @ A/C: RR 28 / TV 300 / FiO2 70% / PEEP 10 -Continue IV Meropenem 1gm Q8H Day6 -Albuterol PRN -Duoneb QID -Solu-medrol 100mg q8h #Cardiovascular 1)Sinus tachycardia -Cardiology (Dr. Jackson) consulted. Recommendations appreciated. -Titrate off vasopressors as tolerated, beginning with lowering dose of dopamine -Serial HR and BP -On IVF -Echo (04/08/18): normal LVEF; small amount pericardial effusion, without evidence of tamponade. -Replete electrolytes. -Keep K 4-4.5, Mg 2-2.4, PO4 2.5-4.9. #Infectious Disease 1)Septic shock likely 2/2 bacteremia 2/2 Pneumonia -Blood cx - + Klebsiella pneumoniae -leukocytosis improving and no fevers overnight. -IV Tylenol q4 PRN -ID (Dr. Kee) consulted. Recommendations appreciated. -Continue IV Meropenem 1gm q8h and IV Vancomycin 1g q12h day 6 2)HIV on HAART -As per ID, will hold all HAART medications for now. #Gastroenterology 1)Hx of C. Difficile infection -Patient was treated for C. diff on 05/21/18; 05/30/2018: Positive c. diff Ag neg toxin -Continue Continue PO Vancomycin 125 mg Q6H Day 8 #Nephrology 1)SONAM -BUN/Cr: 65/1.1 -IV fluids -Avoid nephrotoxic agents -Ugarte in place -Monitor I/O -Daily weights 2)Hypomagnesemia : resolved -IV MgSO4 1gm given 3)Hypokalemia : K 3.8 -IV KCl given -will monitor #Hematology 1)Thrombocytopenia: 30 -PT/INR and Fibrinogen levels done -HIT antibody pending -Hematology (Dr. Dial) consulted. Recommendations appreciated. -platelet transfusion threshold 20K. if falls below 20 thousand transfuse platelets, or if spontaneously bleeding. -trend CBC -trend PT/INR PTT and fibrinogen -heparin subQ BID was stopped -hit Ab sent and only if equivocal will send serotonin release assay -will continue to monitor 2)Anemia -H/H - 10.6/33.5 -will continue to monitor #FEN -IV NS @100ml/hr -hypokalemia, repleted -routine bmp monitoring -NPO #Prophylaxis 1)DVT - Thrombocytopenia, will hold heparin and AC for now 2)GI - IV Protonix 40mg BID #Disposition -full code -ICU for closer monitoring Visit type - Emergency Visit Emergency Visit: Yes ED Registration Date: 05/28/18 Care time: The patient presented to the Emergency Department on the above date and was hospitalized for further evaluation of their emergent condition. - New Patient This patient is new to me today: Yes Date on this admission: 06/04/18 - Critical Care Critical Care patient: Yes Total Critical Care Time (in minutes): 40 Critical Care Statement: The care of this patient involved high complexity decision making to prevent further life threatening deterioration of the patient 's condition and/or to evaluate & treat vital organ system(s) failure or risk of failure.
[2018-06-04] MEDS ORDERED: KCL 10 MEQ IVPB 10 MEQ/100 ML INFUS.BAG IVPB SCH (15:00)
--- NOTE | 2018-06-04 15:57 | PN ---
Progress Note, Physician Chief Complaint: Pt remains intubated; sedated; responds to chest palpation with mild increase in respiratory rate;otherwise, little reaction. History of Present Illness: Pt is a 48yo f with PMH of HIV/AIDS, laryngeal ca s/p tracheostomy, failure to thrive, PEG tube, HepB, COPD/Asthma (s/p thoracocentesis 04/2018); small amount pericardia effusion noted on two ECHOs , BIBA for vomiting, diarrhea, increased mucus production and cough and generalized weakness. Per , pt had a tooth infection 4 days ago on Thursday, went to the dentist, was given amoxicillin and "everything went downhill". Pt started becoming lethargic, vomiting, diarrhea, cough, SOB, increased mucus production, fevers. says fevers were on and off and would get as high as 104. Pt was recently d/c from the hospital for pneumonia on 04/26. She was d/c with PICC line (cefepime). PICC line was removed 1.5 weeks ago. She takes her medications daily (crushed through PEG). says pt CD4 counts are "fine" and viral load is undetectable. Pt complains of generalized abdominal pain as well. - Current Medication List Current Medications: Active Medications Acetaminophen (Tylenol Oral Solution -) 650 mg NGT Q4H PRN PRN Reason: FEVER Acetylcysteine (Mucomyst 20 Oral / Inh Use Only*) 200 mg NEB Q4H PRN PRN Reason: COUGH Artificial Tears (Lacri-Lube Eye Ointment -) 1 applic OU HS PRN PRN Reason: DRY EYES Last Admin: 05/30/18 10:08 Dose: 1 applic Artificial Tears (Artificial Tears) 1 drop OU BID PRN PRN Reason: DRY EYES Last Admin: 06/02/18 11:05 Dose: 1 drop Budesonide/Formoterol Fumarate (Symbicort 160/4.5mcg -) 2 puff IH BID [facility] Last Admin: 06/03/18 22:00 Dose: Not Given Chlorhexidine Gluconate (Hibiclens For Decolonization -) 1 applic TP HS RAZ Last Admin: 06/03/18 22:00 Dose: 1 applic Gabapentin (Neurontin Oral Liquid -) 250 mg GT BID [facility] Last Admin: 06/04/18 09:48 Dose: Not Given Hydrocortisone Sodium Succinate (Solu-Cortef -) 100 mg IVPUSH Q8H-IV RAZ Last Admin: 06/04/18 11:00 Dose: 100 mg Meropenem 1 gm/ Dextrose 100 mls @ 200 mls/hr IVPB Q8H-IV RAZ Last Admin: 06/04/18 10:03 Dose: 200 mls/hr Vasopressin 50 units/ Sodium (Chloride) 100 mls @ 4 mls/hr IVPB ASDIR RAZ; Protocol Last Titration: 06/03/18 06:03 Dose: 0 units/hr, 0 mls/hr Norepinephrine Bitartrate 8, (000 mcg/ Dextrose) 500 mls @ 18.75 mls/hr IV TITR RAZ; Protocol Last Admin: 06/04/18 09:51 Dose: 8 mcg/min, 30 mls/hr Sodium Chloride (Normal Saline -) 1,000 mls @ 100 mls/hr IV ASDIR RAZ Last Admin: 06/04/18 15:48 Dose: 100 mls/hr Potassium Chloride (Potassium Chloride 10 Meq Premix Ivpb -) 10 meq in 100 mls @ 100 mls/hr IVPB Q60M RAZ Stop: 06/04/18 15:59 Last Admin: 06/04/18 15:48 Dose: 100 mls/hr Pantoprazole Sodium (Protonix Iv) 40 mg IVPUSH BID RAZ Last Admin: 06/04/18 10:03 Dose: 40 mg Vancomycin HCl (Vancomycin Oral Solution) 125 mg PO Q6HPO RAZ Last Admin: 06/04/18 13:00 Dose: 125 mg - Objective Vital Signs: Vital Signs Temperature 96.7 F L 06/04/18 14:00 Pulse Rate 85 06/04/18 14:00 Respiratory Rate 28 H 06/04/18 14:23 Blood Pressure 103/75 06/04/18 14:00 O2 Sat by Pulse Oximetry (%) 93 L 06/04/18 09:00 Labs: CBC, BMP 06/04/18 05:30 06/04/18 05:30 INR, PTT INR 1.19 (0.83-1.09) H 06/02/18 05:30 Fibrinogen > 500.0 mg/dL (238-498) H 06/02/18 05:30 Problem List - Problems (1) Pneumonia Assessment/Plan: antibiotics per ID (on Meropenem and Vancomycin); Code(s): J18.9 - PNEUMONIA, UNSPECIFIED ORGANISM Qualifiers: Pneumonia type: due to unspecified organism Laterality: right Lung location: lower lobe of lung Qualified Code(s): J18.1 - Lobar pneumonia, unspecified organism (2) Acute on chronic respiratory failure with hypoxia and hypercapnia Assessment/Plan: continue bronchodilators, steroids, antibiotics 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 Code(s): J96.21 - ACUTE AND CHRONIC RESPIRATORY FAILURE WITH HYPOXIA; J96.22 - ACUTE AND CHRONIC RESPIRATORY FAILURE WITH HYPERCAPNIA (3) COPD (chronic obstructive pulmonary disease) Code(s): J44.9 - CHRONIC OBSTRUCTIVE PULMONARY DISEASE, UNSPECIFIED (4) Hyperthyroidism Assessment/Plan: TSH WNL. Code(s): E05.90 - THYROTOXICOSIS, UNSP WITHOUT THYROTOXIC CRISIS OR STORM (5) Pericardial effusion Code(s): I31.3 - PERICARDIAL EFFUSION (NONINFLAMMATORY) (6) AIDS Code(s): B20 - HUMAN IMMUNODEFICIENCY VIRUS [HIV] DISEASE (7) Failure to thrive in adult Code(s): R62.7 - ADULT FAILURE TO THRIVE (8) Psychosocial stressors Code(s): Z65.8 - OTH PROBLEMS RELATED TO PSYCHOSOCIAL CIRCUMSTANCES (9) Tobacco dependence Code(s): F17.200 - NICOTINE DEPENDENCE, UNSPECIFIED, UNCOMPLICATED (10) Tracheostomy dependence Code(s): Z93.0 - TRACHEOSTOMY STATUS (11) Vitamin D deficiency Code(s): E55.9 - VITAMIN D DEFICIENCY, UNSPECIFIED (12) Tachycardia Assessment/Plan: sinus tachycardia; now in normal sinus rhythm, HR 70s to 90s bpm since stopping dopamine (vasopressin also discontinued); on norepinephrine. ECHO 04/08/2018: normal LVEF; small amount pericaridal effusion ; subsequent ECHO, 05/31/18, shows low normal LVEF, mildly reduced RVEF, and moderate pericardial effusion without evidence of tamponade. Code(s): R00.0 - TACHYCARDIA, UNSPECIFIED (13) Septic shock Assessment/Plan: IV fluids. Antibiotics per ID. Repleted electrolytes: Keep K 4-4.5, Mg 2-2.4 PO4 2.5-4.9. Serial BP and HR; now off phenylephrine. Titrated off dopamine and vasopressin; still on norepinephrine, with intermittent hypotension. Poor prognosis. Code(s): A41.9 - SEPSIS, UNSPECIFIED ORGANISM; R65.21 - SEVERE SEPSIS WITH SEPTIC SHOCK (14) Diastolic CHF Code(s): I50.30 - UNSPECIFIED DIASTOLIC (CONGESTIVE) HEART FAILURE
--- NOTE | 2018-06-04 16:30 | PN ---
Teaching Attending Note Name of Resident: Lenny Ruano ATTENDING PHYSICIAN STATEMENT I saw and evaluated the patient. I reviewed the resident's note and discussed the case with the resident. I agree with the resident's findings and plan as documented. SUBJECTIVE: no events over night OBJECTIVE: Trached on vent, not responsive , not sedated. non reactive pupils.absent corneal reflex. CV: RRR Lungs: course breath sounds b/l Abd: abd wall edema , slightly distended, no BS Ext : black colored toes on both sides worse compared to yesterday ASSESSMENT AND PLAN: 48 y/o lady with h/o laryngeal cancer s/p laryngectomy and tarach /PEG , COPD, recent C diff, Hep B and other medical problems who presented with SOBand was found to have acute hypoxic resp failure 1- Acute hypoxic resp failure 2/2 PNA /ARDS 2- septic shock 3- C diff colitis 4- Thrombocytopenia 5- Acute anemia 6- HIV 7- hyperglycemia 8- SONAM 9- anoxic brain injury Plan : - cont levophed - cont stress dose steroids - spontaneous breathing with apnea testing . - cont IVf - vanco level - cont po vanco - HIT Abs elevated, ? . will d/w heme poor prognosis.
[2018-06-04] MEDS ORDERED: INSULIN (NOVOLOG) ASPART 100 UNITS/ML 10ML VIAL ONE (17:02)
--- NOTE | 2018-06-04 17:54 | PN ---
Progress Note (short form) - Note Progress Note: HIT Ab positive If patient is to be anticoagulated consider argatroban in future Would not use any heparin or lovenox at this time
--- NOTE | 2018-06-04 18:14 | PN ---
Progress Note, Physician History of Present Illness: Doing poorly Unresponsive on ventilator Hypotensive on pressors Afebrile - Current Medication List Current Medications: Active Medications Acetaminophen (Tylenol Oral Solution -) 650 mg NGT Q4H PRN PRN Reason: FEVER Acetylcysteine (Mucomyst 20 Oral / Inh Use Only*) 200 mg NEB Q4H PRN PRN Reason: COUGH Artificial Tears (Lacri-Lube Eye Ointment -) 1 applic OU HS PRN PRN Reason: DRY EYES Last Admin: 05/30/18 10:08 Dose: 1 applic Artificial Tears (Artificial Tears) 1 drop OU BID PRN PRN Reason: DRY EYES Last Admin: 06/04/18 17:57 Dose: 1 drop Budesonide/Formoterol Fumarate (Symbicort 160/4.5mcg -) 2 puff IH BID RAZ Last Admin: 06/03/18 22:00 Dose: Not Given Chlorhexidine Gluconate (Hibiclens For Decolonization -) 1 applic TP HS RAZ Last Admin: 06/03/18 22:00 Dose: 1 applic Gabapentin (Neurontin Oral Liquid -) 250 mg GT BID RAZ Last Admin: 06/04/18 09:48 Dose: Not Given Hydrocortisone Sodium Succinate (Solu-Cortef -) 100 mg IVPUSH Q8H-IV RAZ Last Admin: 06/04/18 17:28 Dose: 100 mg Meropenem 1 gm/ Dextrose 100 mls @ 200 mls/hr IVPB Q8H-IV RAZ Last Admin: 06/04/18 17:28 Dose: 200 mls/hr Vasopressin 50 units/ Sodium (Chloride) 100 mls @ 4 mls/hr IVPB ASDIR RAZ; Protocol Last Titration: 06/03/18 06:03 Dose: 0 units/hr, 0 mls/hr Norepinephrine Bitartrate 8, (000 mcg/ Dextrose) 500 mls @ 18.75 mls/hr IV TITR RAZ; Protocol Last Titration: 06/04/18 14:00 Dose: 10 mcg/min, 37.5 mls/hr Sodium Chloride (Normal Saline -) 1,000 mls @ 100 mls/hr IV ASDIR RAZ Last Admin: 06/04/18 15:48 Dose: 100 mls/hr Pantoprazole Sodium (Protonix Iv) 40 mg IVPUSH BID RAZ Last Admin: 06/04/18 10:03 Dose: 40 mg Vancomycin HCl (Vancomycin Oral Solution) 125 mg PO Q6HPO [facility] Last Admin: 06/04/18 17:28 Dose: 125 mg - Objective Vital Signs: Vital Signs Temperature 97.9 F 06/04/18 16:00 Pulse Rate 89 06/04/18 17:00 Respiratory Rate 28 H 06/04/18 17:17 Blood Pressure 107/68 06/04/18 17:00 O2 Sat by Pulse Oximetry (%) 93 L 06/04/18 09:00 Constitutional: Yes: No Distress Eyes: Yes: Conjunctiva Clear Cardiovascular: Yes: Regular Rate and Rhythm, S1, S2 Respiratory: Yes: Regular, Mechanically Ventilated Gastrointestinal: Yes: Normal Bowel Sounds, Soft. No: Tenderness Extremities: Yes: Other (cyanosis, toes bilaterally) Edema: Yes Labs: CBC, BMP 06/04/18 05:30 06/04/18 05:30 INR, PTT INR 1.19 (0.83-1.09) H 06/02/18 05:30 Fibrinogen > 500.0 mg/dL (238-498) H 06/02/18 05:30 Assessment/Plan Septic shock Gram Negative bacteremia Respiratory failure Pneumonia Thrombocytopenia Azotemia C difficile HIV Continue meropenem / vancomycin po Hemodynamic/ ventilatory support Prognosis poor
[2018-06-04] MEDS: CHLORHEXIDINE GLUCONATE 4% CLEANSER FOR DECOLONIZATION TP SCH (21:35)
[2018-06-04] MEDS: BUDESONIDE/FORMETEROL FUMARATE 160/4.5 mcg INHALER IH SCH ×2 (21:35→21:42)
[2018-06-05] MEDS: VANCOMYCIN 250 MG/5 ML ORAL SOLUTION PO SCH ×4 (01:00→17:50)
[2018-06-05] MEDS ORDERED: PT OWN MED DRAWER 7, Y5N ONE ×3 (01:55→11:36)
[2018-06-05] MEDS: MEROPENEM 1 GM in DEXTROSE 5%-WATER 100 ML IVPB SCH ×2 (02:11→11:17)
[2018-06-05] MEDS: HYDROCORTISONE SOD SUCCINATE 100 MG/2 ML VIAL IVPUSH SCH ×3 (02:11→21:19)
[2018-06-05 06:07] LABS: HEMOGLOBIN 11.3 GM/dL (10.7-15.3); MCH 29.5 pg (25.7-33.7); MCHC 32.3 g/dl (32.0-36.0); MEAN CELL VOLUME 91.4 fl (80-96); MEAN PLT VOLUME 11.1 fl (7.5-11.1); PLATELET COUNT 50 K/MM3 (134-434); RBC 3.82 M/mm3 (3.60-5.2); RDW 16.8 % (11.6-15.6); WHITE BLOOD COUNT 17.6 K/mm3 (4.0-10.0)
[2018-06-05 06:28] LABS: ANION GAP 8 MMOL/L (8-16); BLOOD UREA NITROGEN 70 mg/dL (7-18); CHLORIDE 113 mmol/L (98-107); CO2 32 mmol/L (21-32); CREATININE 1.1 mg/dL (0.55-1.3); GLUCOSE,RANDOM 143 mg/dL (74-106); MAGNESIUM 2.3 mg/dL (1.8-2.4); PHOSPHOROUS 3.9 mg/dL (2.5-4.9); POTASSIUM 4.2 mmol/L (3.5-5.1); SODIUM 153 mmol/L (136-145)
--- NOTE | 2018-06-05 09:24 | PN ---
Progress Note, Physician Chief Complaint: Cardiology weekend coverage for Phill/Manuel History of Present Illness: Seen and examined in ICU: -This is my first encounter with patient this admission. She is intubated on AC mode. On pressors. She was hypothermic earlier TELE: Reviewed. NSR. Short 3-4 beat run self limited NSVT - Current Medication List Current Medications: Active Medications Acetaminophen (Tylenol Oral Solution -) 650 mg NGT Q4H PRN PRN Reason: FEVER Acetylcysteine (Mucomyst 20 Oral / Inh Use Only*) 200 mg NEB Q4H PRN PRN Reason: COUGH Artificial Tears (Lacri-Lube Eye Ointment -) 1 applic OU HS PRN PRN Reason: DRY EYES Last Admin: 05/30/18 10:08 Dose: 1 applic Artificial Tears (Artificial Tears) 1 drop OU BID PRN PRN Reason: DRY EYES Last Admin: 06/04/18 17:57 Dose: 1 drop Budesonide/Formoterol Fumarate (Symbicort 160/4.5mcg -) 2 puff IH BID [facility] Last Admin: 06/04/18 21:42 Dose: Not Given Chlorhexidine Gluconate (Hibiclens For Decolonization -) 1 applic TP HS [facility] Last Admin: 06/04/18 21:35 Dose: 1 applic Gabapentin (Neurontin Oral Liquid -) 250 mg GT BID [facility] Last Admin: 06/04/18 21:37 Dose: 250 mg Hydrocortisone Sodium Succinate (Solu-Cortef -) 100 mg IVPUSH Q8H-IV [facility] Last Admin: 06/05/18 02:11 Dose: 100 mg Meropenem 1 gm/ Dextrose 100 mls @ 200 mls/hr IVPB Q8H-IV [facility] Last Admin: 06/05/18 02:11 Dose: 200 mls/hr Vasopressin 50 units/ Sodium (Chloride) 100 mls @ 4 mls/hr IVPB ASDIR [facility]; Protocol Last Titration: 06/03/18 06:03 Dose: 0 units/hr, 0 mls/hr Norepinephrine Bitartrate 8, (000 mcg/ Dextrose) 500 mls @ 18.75 mls/hr IV TITR [facility]Z; Protocol Last Titration: 06/04/18 14:00 Dose: 10 mcg/min, 37.5 mls/hr Sodium Chloride (Normal Saline -) 1,000 mls @ 100 mls/hr IV ASDIR [facility] Last Admin: 06/04/18 15:48 Dose: 100 mls/hr Pantoprazole Sodium (Protonix Iv) 40 mg IVPUSH BID [facility] Last Admin: 06/04/18 21:35 Dose: 40 mg Vancomycin HCl (Vancomycin Oral Solution) 125 mg PO Q6HPO [facility] Last Admin: 06/05/18 06:18 Dose: 125 mg - Objective Vital Signs: Vital Signs Temperature 97.8 F 06/05/18 06:00 Pulse Rate 83 06/05/18 08:00 Respiratory Rate 28 H 06/05/18 08:00 Blood Pressure 133/94 06/05/18 08:00 O2 Sat by Pulse Oximetry (%) 93 L 06/04/18 09:00 Constitutional: Yes: Other (Trach) Cardiovascular: Yes: Regular Rate and Rhythm (No murmurs) Respiratory: Yes: Other (= breath sounds bilaterally, no wheezing.) Gastrointestinal: Yes: Soft Edema: No Neurological: Yes: Other (unresponsive verbal stimuli) Labs: CBC, BMP 06/05/18 06:00 06/05/18 06:00 INR, PTT INR 1.19 (0.83-1.09) H 06/02/18 05:30 Fibrinogen > 500.0 mg/dL (238-498) H 06/02/18 05:30 Microbiology 05/31/18 07:40 Blood - Peripheral Venous Blood Culture - Final NO GROWTH AFTER 5 DAYS INCUBATION 05/31/18 07:40 Blood - Peripheral Venous Blood Culture - Final NO GROWTH AFTER 5 DAYS INCUBATION 04/09/18 22:30 Blood - Peripheral Venous Blood Culture - Preliminary NO GROWTH OBTAINED AFTER 24 HOURS, INCUBATION TO CONTINUE FOR 4 DAYS. 04/09/18 22:30 Blood - Peripheral Venous Blood Culture - Preliminary NO GROWTH OBTAINED AFTER 24 HOURS, INCUBATION TO CONTINUE FOR 4 DAYS. Laboratory Tests 04/10/18 04/10/18 06/05/18 05:30 05:30 06:00 WBC 13.9 H 17.6 H Hgb 10.5 L 11.3 Hct 35.0 Plt Count 379 D 50 L D Sodium 137 Potassium 4.2 BUN 32 H Creatinine 0.5 L Phosphorus Magnesium B-Natriuretic Peptide 291.08 H 06/05/18 06:00 WBC Hgb Hct Plt Count Sodium 153 H Potassium 4.2 BUN 70 H Creatinine 1.1 Phosphorus 3.9 Magnesium 2.3 B-Natriuretic Peptide Assessment/Plan IMP: 1. Acute hypoxic resp failure 2/2 PNA /ARDS 2. Septic shock 3. C diff colitis 4. Thrombocytopenia 5. Acute anemia 6. HIV 7. anoxic brain injury 8. h/o Laryngeal Ca s/p tracheostomy 9.Small to moderate pericardial effusion without tamponade REC: 1. IV abx as per ID 2. Vent support and management as per Critical Care team 3. Pressors as per Critical Care team for MAP 60 4. Neuro following 5. Continue Tele monitoring in ICU Weekend coverage for Dr. Pollock and Manuel
--- NOTE | 2018-06-05 10:01 | PN ---
Teaching Attending Note Name of Resident: Yonatan Ohara ATTENDING PHYSICIAN STATEMENT I saw and evaluated the patient. I reviewed the resident's note and discussed the case with the resident. I agree with the resident's findings and plan as documented. SUBJECTIVE: No events overnight . OBJECTIVE: Trached on vent, not responsive , not sedated. non reactive pupils.absent corneal reflex. dry blood on lips CV: RRR Lungs: course breath sounds b/l Abd: abd wall edema , slightly distended, no BS Ext : black colored toes on both sides stable compared to yesterday. DP 1+ b/l ASSESSMENT AND PLAN: 48 y/o lady with h/o laryngeal cancer s/p laryngectomy and tarach /PEG , COPD, recent C diff, Hep B and other medical problems who presented with SOBand was found to have acute hypoxic resp failure 1- Acute hypoxic resp failure 2/2 PNA /ARDS 2- septic shock 3- C diff colitis 4- Thrombocytopenia, + HIT abs 5- Acute anemia 6- HIV 7- hyperglycemia 8- SONAM 9- anoxic brain injury 1- ischemic toes 11- hypernatremia Plan : - cont levophed 8mcg/kg/min - cont stress dose steroids - Apnea test as per ICU team - switch IVF to 1/2 NS - repeat vanco level , will likely resume today - cont po vanco - HIT Abs elevated? d/w heme team. AC is not recommended a this point due to thrombocytopenia and bleeding. avoid heparin products poor prognosis.
--- NOTE | 2018-06-05 10:07 | PN ---
Progress Note (short form) - Note Progress Note: seen for the first time today unresponsive no sedation on levophed Vital Signs Period Temp Pulse Resp BP Sys/Lisa Pulse Ox Last 24 Hr 93.5 F-98 F 70-91 24-28 82-138/57-98 warming blanket cor-rrr lungs decreased bs at bases abd soft,nt ext iscemic toes +edema CBC, BMP 06/05/18 06:00 06/05/18 06:00 Microbiology 05/31/18 07:40 Blood - Peripheral Venous Blood Culture - Final NO GROWTH AFTER 5 DAYS INCUBATION 05/31/18 07:40 Blood - Peripheral Venous Blood Culture - Final NO GROWTH AFTER 5 DAYS INCUBATION 05/30/18 08:00 Urine - Urine Ugarte Urine Culture - Final NO GROWTH OBTAINED 05/30/18 12:02 Urine For Antigen Detection Legionella Antigen - Final 05/30/18 12:02 Urine For Antigen Detection Streptococcus pneumoniae Antigen (M - Final 05/30/18 07:00 Stool Clostridium difficile Antigen (NEW) - Final 05/30/18 07:00 Stool Clostridium difficile Toxin Assay - Final 05/28/18 13:53 Blood - Peripheral Venous Blood Culture - Final Klebsiella Pneumoniae 05/28/18 13:53 Blood - Peripheral Venous Blood Culture - Final Klebsiella Pneumoniae 05/28/18 14:23 Urine - Urine Clean Catch Urine Culture - Final Contaminated: Please Repeat 05/28/18 14:02 Nasopharyngeal Swab Influenza Types A,B Antigen - Final 05/28/18 14:02 Nasopharyngeal Swab - Final a/p s/p code 99 times 2 on 05/29-anoxia septic shock gram negative bacteremia RLL pneumonia thrombocytopoenia Cdiff HIV s/p laryngeal cancer overall prognosis is poor to continue current antibiotics meropenem/vancomycin po discussions with family ongoing
--- NOTE | 2018-06-05 10:13 | PN ---
Progress Note (short form) - Note Progress Note: SUBJECTIVE: Patient seen and examined in the ICU. -awaiting apnea test this am - remain on levo -no family at bedside OBJECTIVE: Vital Signs Temp 97.8 F 06/05/18 06:00 Pulse 83 06/05/18 08:00 Resp 28 H 06/05/18 08:00 BP 133/94 06/05/18 08:00 Pulse Ox 93 L 06/04/18 09:00 Intake & Output 06/04/18 06/04/18 06/05/18 11:59 23:59 11:59 Intake Total 800 1367.5 1844 Output Total 1500 3875 400 Balance -700 -2507.5 1444 Weight 39.916 kg 40.852 kg Intake: IV 800 1137.5 1644 Levophed - 8,000 Mcg In 337.5 444 D5w - 492 ml @ 5 MCG/MIN 18.75 mls/hr IV TITR [facility] Rx#:[id number] Normal Saline - 1,000 ml 170 430 5234 @ 100 mls/hr IV ASDIR [facility] Rx#:[id number] IVPB 150 100 Tube Irrigant 80 100 Output: Drainage 675 Buttocks 675 Urine 1500 3200 400 Ugarte 1500 3200 400 Other: Voiding Method Indwelling Catheter Indwelling Catheter Bowel Movement Yes: loose green watery Weight Measurement Method Built in [facility] Active Medications Acetaminophen (Tylenol Oral Solution -) 650 mg NGT Q4H PRN PRN Reason: FEVER Acetylcysteine (Mucomyst 20 Oral / Inh Use Only*) 200 mg NEB Q4H PRN PRN Reason: COUGH Artificial Tears (Lacri-Lube Eye Ointment -) 1 applic OU HS PRN PRN Reason: DRY EYES Last Admin: 05/30/18 10:08 Dose: 1 applic Artificial Tears (Artificial Tears) 1 drop OU BID PRN PRN Reason: DRY EYES Last Admin: 06/04/18 17:57 Dose: 1 drop Budesonide/Formoterol Fumarate (Symbicort 160/4.5mcg -) 2 puff IH BID [facility] Last Admin: 06/04/18 21:42 Dose: Not Given Chlorhexidine Gluconate (Hibiclens For Decolonization -) 1 applic TP HS [facility] Last Admin: 06/04/18 21:35 Dose: 1 applic Gabapentin (Neurontin Oral Liquid -) 250 mg GT BID [facility]Z Last Admin: 06/04/18 21:37 Dose: 250 mg Hydrocortisone Sodium Succinate (Solu-Cortef -) 100 mg IVPUSH Q8H-IV [facility] Last Admin: 06/05/18 02:11 Dose: 100 mg Meropenem 1 gm/ Dextrose 100 mls @ 200 mls/hr IVPB Q8H-IV [facility] Last Admin: 06/05/18 02:11 Dose: 200 mls/hr Vasopressin 50 units/ Sodium (Chloride) 100 mls @ 4 mls/hr IVPB ASDIR [facility]; Protocol Last Titration: 06/03/18 06:03 Dose: 0 units/hr, 0 mls/hr Norepinephrine Bitartrate 8, (000 mcg/ Dextrose) 500 mls @ 18.75 mls/hr IV TITR [facility]; Protocol Last Titration: 06/04/18 14:00 Dose: 10 mcg/min, 37.5 mls/hr Sodium Chloride (Normal Saline -) 1,000 mls @ 100 mls/hr IV ASDIR [facility] Last Admin: 06/04/18 15:48 Dose: 100 mls/hr Pantoprazole Sodium (Protonix Iv) 40 mg IVPUSH BID [facility] Last Admin: 06/04/18 21:35 Dose: 40 mg Vancomycin HCl (Vancomycin Oral Solution) 125 mg PO Q6HPO [facility] Last Admin: 06/05/18 06:18 Dose: 125 mg Gen: vented, no response to noxious stimuli Heart: RRR Lung: scattered rhonchi Abd: soft, nontender Ext: + edema, +ischemic toes Laboratory Results - last 24 hr 05/31/18 06/04/18 06/05/18 10:00 10:15 06:00 WBC 17.6 H RBC 3.82 Hgb 11.3 Hct 35.0 MCV 91.4 MCH 29.5 MCHC 32.3 RDW 16.8 H Plt Count 50 L D MPV 11.1 Sodium Potassium Chloride Carbon Dioxide Anion Gap BUN Creatinine Creat Clearance w eGFR Random Glucose Calcium Phosphorus Magnesium Random Vancomycin 17.3 L Blood Type A POSITIVE Antibody Screen Negative Crossmatch See Detail 06/05/18 06:00 WBC RBC Hgb Hct MCV MCH MCHC RDW Plt Count MPV Sodium 153 H Potassium 4.2 Chloride 113 H Carbon Dioxide 32 Anion Gap 8 BUN 70 H Creatinine 1.1 Creat Clearance w eGFR 52.79 Random Glucose 143 H Calcium 8.0 L Phosphorus 3.9 Magnesium 2.3 Random Vancomycin Blood Type Antibody Screen Crossmatch ASSESSMENT AND PLAN: Acute Hypoxic Respiratory Failure: Appears to be progressing toward Brain Pneumonia ARDS Gram Negative Bacteremia Severe Sepsis Leukopenia Acute Kidney Injury Lactic Acidosis Thrombocytopenia r/o DIC HIV/AIDS COPD h/o Laryngeal Ca s/p tracheostomy - continue antibiotics per ID - IVF to keep CVP 8-12 - monitor urine output, creatinine - taper pressors to maintain MAP >65 - low tidal volume ventilation 6cc/kg/IBW - keep Pplat <30 - taper FiO2, PEEP to keep SpO2 >90% - breat exam - monitor CBC, coags, fibrinogen level - transfuse as needed - hold all sedation to assess mental status - DVT/GI prophylaxis - continue ICU monitoring - Prognosis grave for meaningful survival , may already be Karlee GIANGP [id number] CCT
[2018-06-05] MEDS: ARTIFICIAL TEARS (POLYVINYL ALCOHOL) OPTH DROPS OU PRN (11:00)
[2018-06-05 11:28] LABS: ARTERIAL BLOOD GAS PCO2 47.8 mmHg (35-45); ARTERIAL BLOOD GAS PO2 82.1 mmHg (80-100); ARTERIAL BLOOD GAS pH 7.45 (7.35-7.45)
[2018-06-05] MEDS: GABAPENTIN 250 MG/5 ML ORAL SOLUTION, 470 ML BOTTLE GT SCH ×2 (11:28→21:22)
[2018-06-05] MEDS: PANTOPRAZOLE SODIUM 40 MG VIAL IVPUSH SCH ×2 (11:28→21:20)
[2018-06-05 11:29] LABS: ARTERIAL BLD GAS O2 SATURATION 96.2 % (90-98.9)
[2018-06-05] MEDS: SODIUM CHLORIDE 1,000 ML IV SCH (11:29)
[2018-06-05] MEDS: BUDESONIDE/FORMETEROL FUMARATE 160/4.5 mcg INHALER IH SCH ×2 (11:29→21:23)
[2018-06-05] MEDS ORDERED: SODIUM CHLORIDE 0.45% 1,000 ML IV SCH (13:00)
[2018-06-05] MEDS ORDERED: NOREPINEPHRINE BITARTRATE 4 MG/4 ML ML IV ONE (13:12)
[2018-06-05 13:27] LABS: ARTERIAL BLOOD GAS PCO2 94.6 mmHg (35-45); ARTERIAL BLOOD GAS pH 7.19 (7.35-7.45)
[2018-06-05 13:28] LABS: ARTERIAL BLD GAS O2 SATURATION 96.4 % (90-98.9)
--- NOTE | 2018-06-05 13:39 | PN ---
Physical Exam: SUBJECTIVE: Patient seen and examined at bedside. Pt is not responsive. OBJECTIVE: Vital Signs Period Temp Pulse Resp BP Sys/Lisa Pulse Ox Last 24 Hr 96.7 F-98.4 F 76-91 24-28 93-133/64-98 Gen: Intubated, unresponsive HEENT: no pupilary relfex, proptosis, no corneal reflex Neck: supple Cardio: difficult to auscultate over breath sounds. s1s2, no mrg appreciated Pulm: coarse sounds diffusely abdomen: unchanged. soft Ext: gangrenous toes, 1+ pulses Laboratory Results - last 24 hr 05/31/18 06/05/18 06/05/18 10:00 05:49 06:00 WBC 17.6 H RBC 3.82 Hgb 11.3 Hct 35.0 MCV 91.4 MCH 29.5 MCHC 32.3 RDW 16.8 H Plt Count 50 L D MPV 11.1 Anticoagulation Therapy Puncture Site ABG pH ABG pCO2 at Pt Temp ABG pO2 at Pt Temp ABG HCO3 ABG O2 Sat (Measured) ABG O2 Content ABG Base Excess Aureliano Test O2 Delivery Device Oxygen Flow Rate Vent Mode Vent Rate Mechanical Rate PEEP Pressure Support Vent Sodium Potassium Chloride Carbon Dioxide Anion Gap BUN Creatinine Creat Clearance w eGFR POC Glucometer 148.97322 Random Glucose Calcium Phosphorus Magnesium Blood Type A POSITIVE Antibody Screen Negative Crossmatch See Detail 06/05/18 06/05/18 06:00 10:40 WBC RBC Hgb Hct MCV MCH MCHC RDW Plt Count MPV Anticoagulation Therapy No Result Required. Puncture Site Right radial ABG pH 7.45 ABG pCO2 at Pt Temp 47.8 H ABG pO2 at Pt Temp 82.1 ABG HCO3 33.0 H ABG O2 Sat (Measured) 96.2 ABG O2 Content 14.8 L ABG Base Excess No Result Required. Aureliano Test No Result Required. O2 Delivery Device No Result Required. Oxygen Flow Rate No Result Required. Vent Mode No Result Required. Vent Rate No Result Required. Mechanical Rate No Result Required. PEEP 10.0 Pressure Support Vent No Result Required. Sodium 153 H Potassium 4.2 Chloride 113 H Carbon Dioxide 32 Anion Gap 8 BUN 70 H Creatinine 1.1 Creat Clearance w eGFR 52.79 POC Glucometer Random Glucose 143 H Calcium 8.0 L Phosphorus 3.9 Magnesium 2.3 Blood Type Antibody Screen Crossmatch Active Medications Generic Name Dose Route Start Last Admin Trade Name Daviq PRN Reason Stop Dose Admin Acetaminophen 650 mg 05/31/18 08:04 Tylenol Oral Solution - NGT Q4H PRN FEVER Acetylcysteine 200 mg 05/28/18 21:52 Mucomyst 20 Oral / Inh Use Only* NEB Q4H PRN COUGH Artificial Tears 1 applic 05/30/18 02:00 05/30/18 10:08 Lacri-Lube Eye Ointment - OU 1 applic HS PRN Administration DRY EYES Artificial Tears 1 drop 05/31/18 08:26 06/04/18 17:57 Artificial Tears OU 1 drop BID PRN Administration DRY EYES Budesonide/Formoterol Fumarate 2 puff 05/28/18 22:00 06/05/18 11:29 Symbicort 160/4.5mcg - IH Not Given BID RAZ Chlorhexidine Gluconate 1 applic 05/28/18 22:00 06/04/18 21:35 Hibiclens For Decolonization - TP 1 applic HS RAZ Administration Gabapentin 250 mg 05/31/18 13:21 06/05/18 11:28 Neurontin Oral Liquid - GT 250 mg BID RAZ Administration Hydrocortisone Sodium Succinate 100 mg 05/29/18 19:30 06/05/18 11:28 Solu-Cortef - IVPUSH 100 mg Q8H-IV RAZ Administration Vasopressin 50 units/ Sodium 100 mls @ 4 mls/hr 05/29/18 20:30 06/03/18 06:03 Chloride IVPB 0 units/hr ASDIR RAZ 0 mls/hr Titration Protocol 2 UNITS/HR Norepinephrine Bitartrate 8, 500 mls @ 18.75 mls/hr 05/29/18 20:30 06/05/18 11:22 000 mcg/ Dextrose IV 6 mcg/min TITR RAZ 22.5 mls/hr Titration Protocol 5 MCG/MIN Sodium Chloride 1,000 mls @ 75 mls/hr 06/05/18 13:00 1/2 Normal Saline IV ASDIR RAZ Pantoprazole Sodium 40 mg 05/30/18 12:00 06/05/18 11:28 Protonix Iv IVPUSH 40 mg BID RAZ Administration Vancomycin HCl 125 mg 05/29/18 18:00 06/05/18 11:39 Vancomycin Oral Solution PO 250 mg Q6HPO RAZ Administration ASSESSMENT/PLAN: Pt is a 48 y/o F with PMH HIV/AIDS, laryngeal ca s/p tracheostomy, failure to thrive, PEG tube, Hep B, COPD, Asthma, positive C-diff (05/21) BIBA for SOB/ increased mucus/fatigue for 7-10 days. She is admitted to ICU for acute hypoxic respiratory failure. Coded three times in the ICU and now remains intubated. #Respiratory failure -2/2 PNA and ARDS -intubated. A/C: 28/300/70/10 -reportedly had very minimal spontaneous resp with apnea trial -Mucomyst -Symbicort - #Septic shock -on levophed 8 -solucortef 100 q8 -1/2NS -Merrem -Vanc level. Resume IV vanc once level drops #C. diff -stool studies pos -PO vanco 125 #Thrombocytopenia -initial CARLOS studies positive -avoid heparin products -limited utility of further intervention. plts improving. No bleeding #hypernatremia -1/2NS #HIV -pt has been on oral antiretrovirals -per nurse, g-tube meds are regurgitated from g-tube when given #Dispo -ICU. Prognosis poor Yonatan Ohara MD PGY-2 IM Visit type - Emergency Visit Emergency Visit: No - New Patient This patient is new to me today: No - Critical Care Critical Care patient: Yes Total Critical Care Time (in minutes): 25
--- NOTE | 2018-06-05 13:53 | PROC ---
Procedure Note Procedure: Brain Exam Apnea Test Pt noted to have fixed and dilated pupils, no corneal reflexes, no gag reflex, no cough. Pt not on sedation, has not metabolic disturbance precluding exam. Explained to family at bedside that we would perform an apnea test as element of exam. Arterial blood gas performed prior to test: Pt was removed from mechanical ventilation at 13:05 PM. Oxygen was delivered via tracheostomy at a rate of ~20Lpm. For 8min pt was observed to have Zero respiratory effort. There was no chest rise, no accessory muscle use, no change in hemodynamics. Spo2 remained above 88 %. Arterial blood gas performed after 8min of apnea.: 114 Pt was placed back on mechanical ventilation. Family to be notified. Toño Desir [facility] [id number]
[2018-06-05] MEDS: DEXTROSE 5%-WATER - 1,000 ML IV SCH (15:53)
[2018-06-05] MEDS: CHLORHEXIDINE GLUCONATE 4% CLEANSER FOR DECOLONIZATION TP SCH (21:20)
[2018-06-06] MEDS: DEXTROSE 5%-WATER - 1,000 ML IV SCH (01:52)
[2018-06-06] MEDS: HYDROCORTISONE SOD SUCCINATE 100 MG/2 ML VIAL IVPUSH SCH ×2 (04:00→10:04)
[2018-06-06] MEDS: VANCOMYCIN 250 MG/5 ML ORAL SOLUTION PO SCH ×2 (05:35)
--- NOTE | 2018-06-06 07:15 | PN ---
Progress Note (short form) - Note Progress Note: PULM/CCM SUBJECTIVE: Patient seen and examined in the ICU. -failed apnea test, neuro contacted, to formalize exam today OBJECTIVE: Vital Signs Temp 96.5 F L 06/06/18 06:00 Pulse 106 H 06/06/18 06:00 Resp 28 H 06/06/18 06:37 BP 102/79 06/06/18 06:00 Pulse Ox 93 L 06/05/18 20:00 Intake & Output 06/05/18 06/05/18 06/06/18 11:59 23:59 10:59 Intake Total 1844 1385 1800 Output Total 400 3600 1300 Balance 1444 -2215 500 Weight 40.852 kg 41.419 kg Intake: IV 1644 1085 1700 1/2 Normal Saline 1,000 225 ml @ 75 mls/hr IV ASDIR [facility]Z Rx#:[id number] D5w - 1,000 ml @ 100 mls/ 200 1200 hr IV Q10H RAZ Rx#: [id number] Levophed - 8,000 Mcg In 444 360 500 D5w - 492 ml @ 5 MCG/MIN 18.75 mls/hr IV TITR RAZ Rx#:[id number] Normal Saline - 1,000 ml 1200 300 @ 100 mls/hr IV ASDIR [facility] Rx#:[id number] Pitressin - 50 Units In 0 Normal Saline - 97.5 ml @ 2 UNITS/HR 4 mls/hr IVPB ASDIR [facility] Rx#: [id number] IVPB 100 300 Tube Irrigant 100 100 Output: Urine 400 3600 1300 Ugarte 400 3600 1300 Other: Voiding Method Indwelling Catheter Indwelling Catheter # Unmeasured Voids Void 1 Bowel Movement No No Active Medications Acetaminophen (Tylenol Oral Solution -) 650 mg NGT Q4H PRN PRN Reason: FEVER Acetylcysteine (Mucomyst 20 Oral / Inh Use Only*) 200 mg NEB Q4H PRN PRN Reason: COUGH Artificial Tears (Lacri-Lube Eye Ointment -) 1 applic OU HS PRN PRN Reason: DRY EYES Last Admin: 05/30/18 10:08 Dose: 1 applic Artificial Tears (Artificial Tears) 1 drop OU BID PRN PRN Reason: DRY EYES Last Admin: 06/05/18 11:00 Dose: 1 drop Budesonide/Formoterol Fumarate (Symbicort 160/4.5mcg -) 2 puff IH BID [facility] Last Admin: 06/05/18 21:23 Dose: Not Given Chlorhexidine Gluconate (Hibiclens For Decolonization -) 1 applic TP HS [facility] Last Admin: 06/05/18 21:20 Dose: 1 applic Gabapentin (Neurontin Oral Liquid -) 250 mg GT BID [facility] Last Admin: 06/05/18 21:22 Dose: 250 mg Hydrocortisone Sodium Succinate (Solu-Cortef -) 50 mg IVPUSH Q6H-IV [facility] Last Admin: 06/06/18 04:00 Dose: 50 mg Vasopressin 50 units/ Sodium (Chloride) 100 mls @ 4 mls/hr IVPB ASDIR [facility]; Protocol Last Titration: 06/03/18 06:03 Dose: 0 units/hr, 0 mls/hr Norepinephrine Bitartrate 8, (000 mcg/ Dextrose) 500 mls @ 18.75 mls/hr IV TITR [facility]; Protocol Last Titration: 06/05/18 21:22 Dose: 8 mcg/min, 30 mls/hr Dextrose (D5w -) 1,000 mls @ 100 mls/hr IV Q10H [facility] Last Admin: 06/06/18 01:52 EDT Dose: 100 mls/hr Pantoprazole Sodium (Protonix Iv) 40 mg IVPUSH BID [facility] Last Admin: 06/05/18 21:20 Dose: 40 mg Vancomycin HCl (Vancomycin Oral Solution) 125 mg PO Q6HPO [facility] Last Admin: 06/06/18 05:35 Dose: 125 mg Gen: vented, no response to noxious stimuli Heart: RRR Lung: scattered rhonchi Abd: soft, nontender Ext: + edema, +ischemic toes Neuro: no corneal, fixed and dilated, no gag (failed apnea 06/05) CBC, BMP 06/05/18 06:00 06/05/18 06:00 ASSESSMENT AND PLAN: Acute Hypoxic Respiratory Failure Pneumonia ARDS Gram Negative Bacteremia Severe Sepsis Leukopenia Acute Kidney Injury Lactic Acidosis Thrombocytopenia r/o DIC HIV/AIDS COPD h/o Laryngeal Ca s/p tracheostomy DI -meets criteria for brain , now maxed on all support measures -spoke to , explained we will not perform heroics, he agreed -family gathering at bedside. [place] ACNP [phone] CCT
--- NOTE | 2018-06-06 09:09 | PN ---
Progress Note, Physician Chief Complaint: Remains unresponsive on vent, AC mode On pressors. TELE: NSR - Current Medication List Current Medications: Active Medications Acetaminophen (Tylenol Oral Solution -) 650 mg NGT Q4H PRN PRN Reason: FEVER Acetylcysteine (Mucomyst 20 Oral / Inh Use Only*) 200 mg NEB Q4H PRN PRN Reason: COUGH Artificial Tears (Lacri-Lube Eye Ointment -) 1 applic OU HS PRN PRN Reason: DRY EYES Last Admin: 05/30/18 10:08 Dose: 1 applic Artificial Tears (Artificial Tears) 1 drop OU BID PRN PRN Reason: DRY EYES Last Admin: 06/05/18 11:00 Dose: 1 drop Budesonide/Formoterol Fumarate (Symbicort 160/4.5mcg -) 2 puff IH BID [facility] Last Admin: 06/05/18 21:23 Dose: Not Given Chlorhexidine Gluconate (Hibiclens For Decolonization -) 1 applic TP HS [facility] Last Admin: 06/05/18 21:20 Dose: 1 applic Gabapentin (Neurontin Oral Liquid -) 250 mg GT BID [facility] Last Admin: 06/05/18 21:22 Dose: 250 mg Hydrocortisone Sodium Succinate (Solu-Cortef -) 50 mg IVPUSH Q6H-IV [facility] Last Admin: 06/06/18 04:00 Dose: 50 mg Vasopressin 50 units/ Sodium (Chloride) 100 mls @ 4 mls/hr IVPB ASDIR [facility]; Protocol Last Titration: 06/03/18 06:03 Dose: 0 units/hr, 0 mls/hr Norepinephrine Bitartrate 8, (000 mcg/ Dextrose) 500 mls @ 18.75 mls/hr IV TITR [facility]; Protocol Last Titration: 06/05/18 21:22 Dose: 8 mcg/min, 30 mls/hr Dextrose (D5w -) 1,000 mls @ 100 mls/hr IV Q10H [facility] Last Admin: 06/06/18 01:52 EDT Dose: 100 mls/hr Pantoprazole Sodium (Protonix Iv) 40 mg IVPUSH BID [facility] Last Admin: 06/05/18 21:20 Dose: 40 mg Vancomycin HCl (Vancomycin Oral Solution) 125 mg PO Q6HPO [facility] Last Admin: 06/06/18 05:35 Dose: 125 mg - Objective Vital Signs: Vital Signs Temperature 96.5 F L 06/06/18 06:00 Pulse Rate 105 H 06/06/18 08:00 Respiratory Rate 26 H 06/06/18 08:00 Blood Pressure 89/68 L 06/06/18 08:00 O2 Sat by Pulse Oximetry (%) 93 L 06/05/18 20:00 Constitutional: Yes: Other (+ ETT) Cardiovascular: Yes: Regular Rate and Rhythm Respiratory: Yes: Other (= breath sounds bilaterally with no wheezing) Gastrointestinal: Yes: Soft Edema: No Labs: CBC, BMP 06/05/18 06:00 06/05/18 06:00 INR, PTT INR 1.19 (0.83-1.09) H 06/02/18 05:30 Fibrinogen > 500.0 mg/dL (238-498) H 06/02/18 05:30 Microbiology 05/31/18 07:40 Blood - Peripheral Venous Blood Culture - Final NO GROWTH AFTER 5 DAYS INCUBATION 05/31/18 07:40 Blood - Peripheral Venous Blood Culture - Final NO GROWTH AFTER 5 DAYS INCUBATION Laboratory Tests 06/05/18 06/05/18 06:00 06:00 WBC 17.6 H Hgb 11.3 Plt Count 50 L D Sodium 153 H Potassium 4.2 BUN 70 H Creatinine 1.1 Magnesium 2.3 - ....Imaging EKG: Image Reviewed Assessment/Plan IMP: 1. Acute hypoxic resp failure 2/2 PNA /ARDS 2. Septic shock 3. C diff colitis 4. Thrombocytopenia 5. Acute anemia 6. HIV 7. anoxic brain injury 8. h/o Laryngeal Ca s/p tracheostomy 9.Small to moderate pericardial effusion without tamponade REC: 1. IV abx as per ID 2. Vent support and management as per Critical Care team 3. Pressors as per Critical Care team for MAP 60 4. Neuro following 5. Continue Tele monitoring in ICU Weekend coverage for Dr. Pollock and Manuel
[2018-06-06] MEDS: GABAPENTIN 250 MG/5 ML ORAL SOLUTION, 470 ML BOTTLE GT SCH (10:04)
[2018-06-06] MEDS: PANTOPRAZOLE SODIUM 40 MG VIAL IVPUSH SCH (10:05)
[2018-06-06] MEDS: BUDESONIDE/FORMETEROL FUMARATE 160/4.5 mcg INHALER IH SCH (10:06)
[2018-06-06 10:54] VITALS: BP 75/58; PULSE 103; TEMP 96.3
--- NOTE | 2018-06-06 11:11 | PN ---
Progress Note (short form) - Note Progress Note: Note: At 12:05 PM today, Pt was noted to be in PEA, there was no pulse, no respirations, no corneals, and no apical heart sounds. Pt was formally pronounced. Family at bedside and informed. Organ donation to be notified. Census to be notified. Attending to be notified. [place] ACNP [id number]
--- NOTE | 2018-06-06 13:46 | PN ---
Progress Note (short form) - Note Progress Note: No spontaneous respiration , no heart beat. dilated round pupils, not reactive to light. absent corneal reflex. son at bed side. time of 11:05 am Visit type - Emergency Visit Emergency Visit: Yes ED Registration Date: 05/28/18 Care time: The patient presented to the Emergency Department on the above date and was hospitalized for further evaluation of their emergent condition. - New Patient This patient is new to me today: No - Critical Care Critical Care patient: No
--- NOTE | 2018-06-07 14:10 | DS ---
Physical Exam: SUBJECTIVE: Patient chart reviewed as per notes from earlier this day. Time of 11:05am. OBJECTIVE: PHYSICAL EXAM GENERAL: The patient is comatose, non-arousable to tactile or verbal stimuli, cool to touch. EYES: Pupils dialted, unresponsive to light, scleral ictericus, absent corneal reflexes, purulence dripping from eyes ENT: Ears normal, nares patent, oropharynx with clots of blood in mouth NECK: Tracheostomy tube in place LUNGS: Coarse breath sounds, mechanical ventilation, no spontaneous respirations HEART: No Heart beat ABDOMEN: Non-distended, dull to percussion, BS hypo-active, rectal sheath draining yellow-green liquid, Ugarte draining clear urine. PEG site now red around site. EXTREMITIES: Absent pulses, warm-except for metatarsals which were cool to touch and dusky, no edema. NEUROLOGICAL: Comatose LABS Laboratory Results - last 24 hr 05/31/18 10:58 Puncture Site Arterial line O2 Delivery Device Vent Oxygen Flow Rate 90 Vent Rate 28 Mechanical Rate Yes PEEP 5.0 Pressure Support Vent 300 HOSPITAL COURSE: Date of Admission:05/28/18 Date of Discharge: 06/07/18 Pt. admitted for acute respiratory failure 2/2 to sepsis after failed outpatient treatment. Pt. attached to mechanical ventilation on 05/29/18. Pt. started on broad spectrum antibiotics. Femoral line placed 05/29/18. Pt. maintained on IV pressors to keep MAP above 65. Pt. maintained on mechanical ventilation to keep SpO2 above 90%. Consults to Cardiology, hematology/oncology , pulmonology/critical care, neurology, nephrololgy and infectious disease were appreciated. Hospital course was discussed and agreed upon with family and medical staff. Rapid response called on 05/29/18 with ROSC achieved after 12min. Pt. then coded again and ROSC achieved after 8 min. Right IJ placed on . Pt. failed apnea test on 06/05/18. Time of was called at 06/06/18 at 11:05am. Minutes to complete discharge: 36 Discharge Summary Reason For Visit: SEPSIS,PNEUMONIA,LACTIC ACIDOSIS,HIV,C-DIFF Condition: Stable - Instructions Disposition: - Home Medications Comprehensive Discharge Medication List: Ambulatory Orders Zolpidem Tartrate [Ambien] 5 mg PO HS #30 tablet MDD 1 03/04/18 Acetaminophen [Tylenol .Regular Strength -] 650 mg PO Q6H PRN tablet 04/26/18 Acetylcysteine Po/INH 20% [Mucomyst 20 Oral / INH Use Only*] 200 mg NEB Q4HWA PRN #1 vial 05/06/18 Albuterol 0.083% Nebulizer Keyonna [Ventolin 0.083% Nebulizer Soln -] 1 neb NEB Q4H PRN #1 box MDD 6 05/06/18 Emtricitabine/Tenofovir [Truvada -] 1 tab PEG DAILY #30 tablet 05/06/18 Etravirine [Intelence -] 100 mg PEG BID #60 tablet 05/06/18 Gabapentin Liquid [Neurontin Oral Liquid -] 250 mg PO BID #1 bottle 05/06/18 Raltegravir [Isentress] 400 mg PEG BID #60 tab 05/06/18 Amoxicillin - [Amoxicillin 500mg Capsule -] 500 mg PO Q8H 05/28/18 Clonazepam [Klonopin] 1 mg GT TID PRN MDD 3 05/28/18 Mirtazapine [Remeron -] 15 mg GT DAILY 05/28/18 Prednisone 15 mg GT DAILY 05/28/18 Sertraline HCl [Zoloft] 100 mg GT AM 05/28/18 This patient is new to me today: No Emergency Visit: Yes ED Registration Date: 05/28/18 Care time: The patient presented to the Emergency Department on the above date and was hospitalized for further evaluation of their emergent condition. Critical Care patient: Yes Total Critical Care Time (in minutes): 42 Critical Care Statement: The care of this patient involved high complexity decision making to prevent further life threatening deterioration of the patient 's condition and/or to evaluate & treat vital organ system(s) failure or risk of failure. - Discharge Referral Referred to [facility] No
== END 2018-06-06 15:26 | disposition expired | DRG 890 ==
LOC: JER 13:12 → JERBED 15:16 → JICU 21:24
PROVIDERS: ADMIT Internal Medicine; ATTEND Internal Medicine
PROC: 5A1955Z Respiratory Ventilation, Greater than 96 Consecutive Hours (ICD-10-PCS; principal; 2018-05-28)
PROC: 05HM33Z Insertion of Infusion Device into Right Internal Jugular Vein, Percutaneous Approach (ICD-10-PCS; 2018-05-29)
PROC: 05HM33Z Insertion of Infusion Device into Right Internal Jugular Vein, Percutaneous Approach (ICD-10-PCS; 2018-06-01)
PROC: 30233R1 Transfusion of Nonautologous Platelets into Peripheral Vein, Percutaneous Approach (ICD-10-PCS; 2018-06-01)
PROC: 30233N1 Transfusion of Nonautologous Red Blood Cells into Peripheral Vein, Percutaneous Approach (ICD-10-PCS; 2018-06-01)
DX: A41.9 Sepsis, unspecified organism (principal); J96.21 Acute and chronic respiratory failure with hypoxia; J96.22 Acute and chronic respiratory failure with hypercapnia; R65.21 Severe sepsis with septic shock; D72.819 Decreased white blood cell count, unspecified; R00.0 Tachycardia, unspecified; F41.9 Anxiety disorder, unspecified; A04.72 Enterocolitis due to Clostridium difficile, not specified as recurrent; E87.2 Acidosis; J44.9 Chronic obstructive pulmonary disease, unspecified; E87.0 Hyperosmolality and hypernatremia; N17.9 Acute kidney failure, unspecified; E83.42 Hypomagnesemia; E87.6 Hypokalemia; D64.9 Anemia, unspecified; D69.6 Thrombocytopenia, unspecified; J18.9 Pneumonia, unspecified organism; B20 Human immunodeficiency virus [HIV] disease; G93.1 Anoxic brain damage, not elsewhere classified; I31.3 Pericardial effusion (noninflammatory); I95.9 Hypotension, unspecified; Z93.0 Tracheostomy status; E55.9 Vitamin D deficiency, unspecified; R64 Cachexia; Z68.1 Body mass index [BMI] 19.9 or less, adult; J45.909 Unspecified asthma, uncomplicated
CPT/HCPCS: 31502; 36415; 36430; 36511; 36600; 70450-TC; 71045-TC-FY; 74018-TC-FY; 80048; 80053; 81003; 81015; 82803; 82962; 83605; 83615; 83735; 84100; 84484; 85025; 85027; 85384; 85610; 85730; 86022; 86850; 86900; 86901; 86922; 87040; 87086; 87186; 87324; 87449; 87804; 87899; 93005; 93010; 93306-TC; 94002; 94640; 99285-25; G0480; J0131; J1644; J7030; P9034; P9038; P9058